=== PATIENT | female | born 1935 | race Caucasian/White ===

== ENCOUNTER 2018-12-13 11:27 | Inpatient (IN) | payer OTHER ==
[2018-12-13 12:25] LABS: BASO % 0.3 % (0-2.0); EOS % 1.1 % (0-4.5); HEMATOCRIT 37.8 % (32.4-45.2); HEMOGLOBIN 12.1 GM/dL (10.7-15.3); LYMPH % 26.4 % (8-40); MEAN CELL VOLUME 75.1 fl (80-96); MEAN PLT VOLUME 8.7 fl (7.5-11.1); MONO % 7.9 % (3.8-10.2); NEUT % 64.3 % (42.8-82.8); PLATELET COUNT 322 K/MM3 (134-434); RBC 5.03 M/mm3 (3.60-5.2); WHITE BLOOD COUNT 12.2 K/mm3 (4.0-10.0)
[2018-12-13] MEDS ORDERED: SODIUM CHLORIDE 500 ML IV STA (12:28)
[2018-12-13] MEDS ORDERED: PANTOPRAZOLE SODIUM 40 MG VIAL IVPUSH ONE (12:29)
[2018-12-13 12:35] LABS: INR 1.94 (0.83-1.09)
[2018-12-13] MEDS ORDERED: PANTOPRAZOLE SODIUM 40 MG VIAL ONE ×2 (12:38→18:20)
[2018-12-13 13:02] LABS: ALBUMIN 3.1 g/dl (3.4-5.0); ALK PHOS 67 U/L (45-117); ANION GAP 9 MMOL/L (8-16); BILIRUBIN,TOTAL 0.3 mg/dL (0.2-1); BLOOD UREA NITROGEN 21 mg/dL (7-18); CALCIUM 8.7 mg/dL (8.5-10.1); CHLORIDE 102 mmol/L (98-107); CO2 25 mmol/L (21-32); CREATININE 1.1 mg/dL (0.55-1.3); GLUCOSE,RANDOM 88 mg/dL (74-106); LIPASE 210 U/L (73-393); POTASSIUM 3.7 mmol/L (3.5-5.1); SGOT/AST 19 U/L (15-37); SGPT/ALT 18 U/L (13-61); SODIUM 135 mmol/L (136-145); TOT PROT 6.2 g/dl (6.4-8.2)
[2018-12-13] MEDS ORDERED: dilTIAZem HCL 50 MG/10 ML - 10 ML VIAL IVPUSH ONE ×3 (13:26→20:20)
--- NOTE | 2018-12-13 13:26 | PDOC ---
History of Present Illness - General History Source: [facility] Records Exam Limitations: Dementia - History of Present Illness Initial Comments: 12/13/18 14:29 The patient is an 83-year-old female from [facility], with a past medical history of HTN, GERD, esophagitis, ataxia, hallucinations, and dementia, who presents to the ED via EMS for coffee ground emesis and increased confusion. Patients history is limited due to dementia. <Izabela Arthur - Last Filed: 12/13/18 15:20> <Terence Spring - Last Filed: 12/13/18 16:20> - General Chief Complaint: Nausea/Vomiting Stated Complaint: Altered Mental Status Time Seen by Provider: 12/13/18 11:57 Past History <Izabela Arthur - Last Filed: 12/13/18 15:20> - Past Medical History GI Disorders: Yes (reflux, esophogitis) HTN: Yes Psychiatric Problems: Yes (hallucinations,ataxia) - Immunization History Immunization Up to Date: Yes - Suicide/Smoking/Psychosocial Hx Smoking History: Smoker current status UNK Have you smoked in the past 12 months: No Hx Alcohol Use: No Drug/Substance Use Hx: No Substance Use Type: None Hx Substance Use Treatment: No <Terence Spring - Last Filed: 12/13/18 16:20> - Past Medical History Allergies/Adverse Reactions: Allergies Allergy/AdvReac Type Severity Reaction Status Date / Time No Known Allergies Allergy Verified 12/13/18 12:30 Home Medications: Ambulatory Orders Donepezil HCl [Aricept] 10 mg PO HS 07/23/15 Apixaban [Eliquis -] 5 mg PO BID #60 tablet 07/30/15 Fluticasone Prop 0.05% Nasal [Flonase -] 2 spray NS DAILY #1 bottle 07/30/15 Diltiazem Cd [Cardizem Cd -] 60 mg PO TID 12/13/18 Ferrous Gluconate [Iron] 240 mg PO DAILY 12/13/18 Loratadine [Claritin -] 10 mg PO DAILY 12/13/18 Mirtazapine [Remeron -] 15 mg PO HS 12/13/18 Omeprazole Magnesium [Prilosec Otc] 20 mg PO DAILY 12/13/18 Propranolol HCl [Inderal LA] 120 mg PO BID 12/13/18 Sennosides/Docusate Sodium [Senokot-S Tablet] 2 each PO HS 12/13/18 Review of Systems - Review of Systems Able to Perform ROS?: No Comments:: 12/13/18 15:21 ROS is limited due to patient's dementia. <Izabela Arthur - Last Filed: 12/13/18 15:20> *Physical Exam - Vital Signs Last Vital Signs Temp Pulse Resp BP Pulse Ox 97.9 F 126 H 22 H 127/87 99 12/13/18 12:25 12/13/18 12:25 12/13/18 12:25 12/13/18 12:25 12/13/18 12:25 - Physical Exam Comments: 12/13/18 14:38 CONSTITUTIONAL: Well-appearing; well-nourished; in no apparent distress HEAD: Normocephalic; atraumatic EYES: (+)Pale conjuctiva. PERRL; EOM intact ENMT: External appears normal; normal oropharynx NECK: Supple; non-tender; no cervical lymphadenopathy CARD:(+)Irregularly, irregular. Normal S1, S2; no murmurs, rubs, or gallops RESP: Normal chest excursion with respiration; breath sounds clear and equal bilaterally; no wheezes, rhonchi, or rales ABD: Soft, non-distended; non-tender; no palpable organomegaly, no palpable hernias EXT: Normal ROM in all four extremities; non-tender to palpation; distal pulses intact SKIN: Warm, dry, no rash NEURO: (+)Alert and oriented to self only. Moving all extremities. <Izabela Arthur - Last Filed: 12/13/18 15:20> - Vital Signs Last Vital Signs Temp Pulse Resp BP Pulse Ox 97.9 F 126 H 22 H 127/87 99 12/13/18 12:25 12/13/18 12:25 12/13/18 12:25 12/13/18 12:25 12/13/18 12:25 <Terence Spring - Last Filed: 12/13/18 16:20> Moderate Sedation - Procedure Monitoring Vital Signs: Procedure Monitoring Vital Signs Temperature 97.9 F 12/13/18 12:25 Pulse Rate 126 H 12/13/18 12:25 Respiratory Rate 22 H 12/13/18 12:25 Blood Pressure 127/87 12/13/18 12:25 O2 Sat by Pulse Oximetry (%) 99 12/13/18 12:25 <Izabela Arthur - Last Filed: 12/13/18 15:20> - Procedure Monitoring Vital Signs: Procedure Monitoring Vital Signs Temperature 97.9 F 12/13/18 12:25 Pulse Rate 126 H 12/13/18 12:25 Respiratory Rate 22 H 12/13/18 12:25 Blood Pressure 127/87 12/13/18 12:25 O2 Sat by Pulse Oximetry (%) 99 12/13/18 12:25 <Terence Spring - Last Filed: 12/13/18 16:20> ED Treatment Course - LABORATORY CBC & Chemistry Diagram: 12/13/18 12:12 12/13/18 12:14 - ADDITIONAL ORDERS Additional order review: Laboratory Results 12/13/18 12/13/18 12/13/18 12:14 12:14 12:14 PT with INR 23.00 H INR 1.94 H Sodium Cancelled 135 L Potassium Cancelled 3.7 Chloride Cancelled 102 Carbon Dioxide Cancelled 25 Anion Gap Cancelled 9 BUN Cancelled 21 H Creatinine Cancelled 1.1 Creat Clearance w eGFR Cancelled 47.21 Random Glucose Cancelled 88 Calcium Cancelled 8.7 Total Bilirubin Cancelled 0.3 AST Cancelled 19 ALT Cancelled 18 Alkaline Phosphatase Cancelled 67 Creatine Kinase 20 L Troponin I < 0.02 Total Protein Cancelled 6.2 L Albumin Cancelled 3.1 L Lipase 210 TSH 2.24 12/13/18 12:12 RBC 5.03 MCV 75.1 L MCHC 32.0 RDW 20.0 H MPV 8.7 Neutrophils % 64.3 Lymphocytes % 26.4 Monocytes % 7.9 Eosinophils % 1.1 Basophils % 0.3 - Medications Given in the ED: ED Medications Discontinued Medications Generic Name Dose Route Start Last Admin Trade Name Freq PRN Reason Stop Dose Admin Diltiazem HCl 10 mg 12/13/18 13:26 12/13/18 13:31 Cardizem Injection - IVPUSH 12/13/18 13:27 10 mg ONCE ONE Administration Sodium Chloride 500 mls @ 500 mls/hr 12/13/18 12:28 12/13/18 12:45 Normal Saline - IV 12/13/18 13:27 500 mls/hr ASDIR STA Administration Pantoprazole Sodium 40 mg 12/13/18 12:29 12/13/18 12:46 Protonix Iv IVPUSH 12/13/18 12:30 40 mg ONCE ONE Administration <Izabela Arthur - Last Filed: 12/13/18 15:20> - LABORATORY CBC & Chemistry Diagram: 12/13/18 12:12 12/13/18 12:14 - ADDITIONAL ORDERS Additional order review: Laboratory Results 12/13/18 12/13/18 12/13/18 12:14 12:14 12:14 PT with INR 23.00 H INR 1.94 H Sodium Cancelled 135 L Potassium Cancelled 3.7 Chloride Cancelled 102 Carbon Dioxide Cancelled 25 Anion Gap Cancelled 9 BUN Cancelled 21 H Creatinine Cancelled 1.1 Creat Clearance w eGFR Cancelled 47.21 Random Glucose Cancelled 88 Calcium Cancelled 8.7 Total Bilirubin Cancelled 0.3 AST Cancelled 19 ALT Cancelled 18 Alkaline Phosphatase Cancelled 67 Creatine Kinase 20 L Troponin I < 0.02 Total Protein Cancelled 6.2 L Albumin Cancelled 3.1 L Lipase 210 TSH 2.24 12/13/18 12:12 RBC 5.03 MCV 75.1 L MCHC 32.0 RDW 20.0 H MPV 8.7 Neutrophils % 64.3 Lymphocytes % 26.4 Monocytes % 7.9 Eosinophils % 1.1 Basophils % 0.3 - RADIOLOGY Radiology Studies Ordered: Category Date Time Status CHEST X-RAY PORTABLE* [RAD] Stat Radiology 12/13/18 12:28 Taken - Medications Given in the ED: ED Medications Discontinued Medications Generic Name Dose Route Start Last Admin Trade Name Freq PRN Reason Stop Dose Admin Pantoprazole Sodium 40 mg 12/13/18 12:29 12/13/18 12:46 Protonix Iv IVPUSH 12/13/18 12:30 40 mg ONCE ONE Administration <Terence Spring - Last Filed: 12/13/18 16:20> Medical Decision Making - Medical Decision Making 12/13/18 15:28 Patient is a well-appearing 83-year-old female with advanced dementia, multiple comorbidities, atrial fibrillation on 0 to who presents [facility] for several episodes of witnessed coffee ground emesis and increased confusion. In the ER, patient is well-appearing, tachycardic with EKG revealing a flutter with 2:1 conduction. Hemoglobin is noted to be 10. Patient is stool guaiac positive. I suspect upper GI bleeding. We'll administer Protonix. Will hold Xarelto and will consult GI. Will admit. We'll also administer Cardizem for rate control. <Terence Spring - Last Filed: 12/13/18 16:20> *DC/Admit/Observation/Transfer - Attestations Scribe Attestion: 12/13/18 14:33 Documentation prepared by Izabela Arthur, acting as medical office professional instructor for Terence Spring MD. <Izabela Arthur - Last Filed: 12/13/18 15:20> - Discharge Dispostion Decision to Admit order: Yes - Attestations Physician Attestion: 12/13/18 15:28 The documentation was prepared by the scribe under my direct supervision. I have reviewed the documentation which correctly represents the findings, medical decision-making and critical action taken by me. <Terence Spring - Last Filed: 12/13/18 16:20> Diagnosis at time of Disposition: Flutter-fibrillation Gastrointestinal bleeding Qualifiers: GI bleed type/associated pathology: melena Qualified Code(s): K92.1 - Melena - Discharge Dispostion Condition at time of disposition: Fair - Referrals Referrals: Fatimah Henson MD [Primary Care Provider] - - Patient Instructions - Post Discharge Activity
[2018-12-13] MEDS ORDERED: dilTIAZem HCL 125 MG/25 ML - 25 ML VIAL ONE ×3 (13:28→20:25)
[2018-12-13] MEDS ORDERED: dilTIAZem HCL 30 MG TABLET (FP) PO ONE (15:30)
[2018-12-13] MEDS ORDERED: dilTIAZem HCL 30 MG TABLET (FP) ONE (15:46)
[2018-12-13] MEDS ORDERED: ACETAMINOPHEN 325 MG TABLET (FP) PO PRN (17:57)
[2018-12-13] MEDS: PANTOPRAZOLE SODIUM 80 MG in SODIUM CHLORIDE 100 ML IVPB SCH (18:27)
--- NOTE | 2018-12-13 21:18 | CONS ---
DATE OF CONSULTATION: DATE OF DICTATION: 12/13/2018 GASTROENTEROLOGY CONSULTATION HISTORY OF PRESENT ILLNESS: The patient is an 83-year-old female from the custodial facility who has a medical history significant for hypertension, atrial fibrillation, on Eliquis, reflux disease, dementia with hallucinations, history of esophagitis in the past who presents from the custodial facility by EMS for an episode of coffee ground emesis and increased confusion while she was at the facility. She states she had no abdominal pain, nausea, vomiting. She denies having any melena or episodes of coffee ground emesis. She appears to be somewhat confused. She states she has had endoscopic evaluation when she was younger. PAST MEDICAL AND SURGICAL HISTORY: As listed in the HPI. ALLERGIES: No known drug allergies. HOME MEDICATIONS: Reviewed, include Aricept, Eliquis, flonase, Cardizem, iron, Claritin, Remeron, Prilosec, Inderal, and Senokot. SOCIAL HISTORY: Denies smoking, drinking, or using drugs. FAMILY HISTORY: Unable to obtain. REVIEW OF SYSTEMS: Very limited secondary to her dementia and confused state. She does however deny chest pain, shortness of breath, or syncope, and previous episode of GI bleed. PHYSICAL EXAMINATION: VITAL SIGNS: Temperature 97.9, pulse 69, blood pressure 111/92, respirations 12 , and saturating 97% on room air. GENERAL: In no acute distress. HEENT: Anicteric sclerae. CARDIOVASCULAR: S1, S2, regular rate and rhythm. LUNGS: Bilaterally clear to auscultation. ABDOMEN: Soft, nontender. EXTREMITIES: No edema. LABORATORY: White blood cell count 12.2, hemoglobin and hematocrit 12/37, MCV 75. Apparently her baseline a couple years ago with hemoglobin of between 13 to 14, platelet count 322, INR 1.94. Sodium 135, potassium 3.7, BUN/creatinine 21/1.1, glucose 88, total bilirubin 0.3, AST 19, ALT 18, alkaline phosphatase 67, creatinine kinase 20, troponin less than 0.02, lipase 210, TSH 2.24. Stool for occult blood was positive. There are no cultures pending, and she has had a chest x-ray in the ER which revealed no acute chest pathology. IMPRESSION: Episode of coffee ground emesis and melena while at the custodial facility. She is currently on Eliquis therapy. She is hemodynamically stable at this time without sign of an overt gastrointestinal bleed. RECOMMENDATION: N.p.o., intravenous fluids, Protonix infusion, serial CBCs q.8. She would benefit form an upper endoscopy. I will contact her power of trial attorney, Ms. Shantell Jennings, and discuss the risks and benefits of endoscopic procedures with her. Plan for egd within the next 24- 48 hours considering she is on a/c with eliquis. Hold anticoagulation. Cardiology consultation. Patient will be followed by the GI service. DO TAYA TORRE/[id number] MTDD
[2018-12-13] MEDS ORDERED: PT OWN MED DRAWER 7, Y5N ONE ×2 (23:31→23:58)
[2018-12-13] MEDS: SENNOSIDES/DOCUSATE COMBO (SENNA PLUS) TABLET (UD) PO SCH (23:35)
[2018-12-13] MEDS: dilTIAZem HCL 60 MG TABLET (FP) PO SCH (23:36)
[2018-12-13] MEDS: DONEPEZIL HCL 10 MG TABLET (FP) PO SCH (23:36)
[2018-12-13] MEDS: MIRTAZAPINE 15 MG TABLET (FP) PO SCH (23:36)
--- NOTE | 2018-12-13 23:56 | HP ---
Admitting History and Physical - Admission Chief Complaint: coffee ground emesis History of Present Illness: 83 year old female with past medical history of reflux, esophagitis, dementia, hallucination, Ataxia, HTN, benign neoplasm of cerebral meninges, who presents to the emergency department via EMS from group home due to two episodes of coffee ground emesis and increased confusion. Patient is a poor historian. In ED: Pt was found to be in Aflutter 2:1 conduction at 126bpm. She was given cardizem 10mg IVP x 2 doses then 30mg cardizem oral. Hemoccult x 1 positive, pt started on protonix drip. H/H stable 12.1/37.[address] Mejia from GI service consulted Pt admitted for continued management. History Source: Medical Record Limitations to Obtaining History: Dementia - Past Medical History [employer]ARM[employer]: Yes: Dementia (mild), Other (?meningioma) Cardiovascular: Yes: HTN Gastrointestinal: Yes: GERD Reproductive: Yes: Postmenopausal - Smoking History Smoking history: Smoker current status UNK Have you smoked in the past 12 months: No - Alcohol/Substance Use Hx Alcohol Use: No History of Substance Use: reports: None - Social History Usual Living Arrangement: Yes: [facility] ADL: Support Services History of Recent Travel: No Home Medications - Allergies Allergies/Adverse Reactions: Allergies Allergy/AdvReac Type Severity Reaction Status Date / Time No Known Allergies Allergy Verified 12/13/18 12:30 - Home Medications Home Medications: Ambulatory Orders Donepezil HCl [Aricept] 10 mg PO HS 07/23/15 Apixaban [Eliquis -] 5 mg PO BID #60 tablet 07/30/15 Fluticasone Prop 0.05% Nasal [Flonase -] 2 spray NS DAILY #1 bottle 07/30/15 Diltiazem Cd [Cardizem Cd -] 60 mg PO TID 12/13/18 Ferrous Gluconate [Iron] 240 mg PO DAILY 12/13/18 Loratadine [Claritin -] 10 mg PO DAILY 12/13/18 Mirtazapine [Remeron -] 15 mg PO HS 12/13/18 Omeprazole Magnesium [Prilosec Otc] 20 mg PO DAILY 12/13/18 Propranolol HCl [Inderal LA] 120 mg PO BID 12/13/18 Sennosides/Docusate Sodium [Senokot-S Tablet] 2 each PO HS 12/13/18 Family Disease History - Family Disease History Other Family History: unable to obtain Review of Systems - Review of Systems Constitutional: reports: No Symptoms Eyes: reports: No Symptoms HENT: reports: Hearing Loss Neck: reports: No Symptoms Cardiovascular: reports: No Symptoms Respiratory: reports: No Symptoms Gastrointestinal: reports: Nausea, Vomiting Genitourinary: reports: No Symptoms Breasts: reports: No Symptoms Reported Musculoskeletal: reports: Muscle Weakness Integumentary: reports: No Symptoms Neurological: reports: Confusion Endocrine: reports: No Symptoms Hematology/Lymphatic: reports: No Symptoms Physical Examination Vital Signs: Vital Signs Temperature 97.9 F 12/13/18 12:25 Pulse Rate 118 H 12/13/18 21:02 Respiratory Rate 17 12/13/18 21:02 Blood Pressure 100/63 12/13/18 21:02 O2 Sat by Pulse Oximetry (%) 96 12/13/18 21:02 Constitutional: Yes: Cachectic, Thin Eyes: Yes: Conjunctiva Clear, PERRL HENT: Yes: Atraumatic, Normocephalic Neck: Yes: Supple Cardiovascular: Yes: Tachycardia Respiratory: Yes: Regular, CTA Bilaterally Gastrointestinal: Yes: Normal Bowel Sounds, Soft ...Rectal Exam: Yes: Deferred Musculoskeletal: Yes: Joint Stiffness, Muscle Weakness Edema: No Peripheral Pulses WNL: Yes Peripheral Pulses: Left Radial: 2+, Right Radial: 2+ Integumentary: Yes: Venous Stasis Changes Neurological: Yes: Alert, Unsteady Gait, Other (forgetful) ...Motor Strength: WNL Psychiatric: Yes: Alert Labs: CBC, BMP 12/13/18 12:12 12/13/18 12:14 Imaging - Results Chest X-ray: Report Reviewed (CXR 12/13/2018: no acute pathology) Problem List - Problems (1) Flutter-fibrillation Assessment/Plan: cardizem 60mg TID CArds consulted admit to tele bed EKG in AM hold xarelto in light of possible GI bleed Code(s): I49.8 - OTHER SPECIFIED CARDIAC ARRHYTHMIAS (2) Gastrointestinal bleeding Assessment/Plan: continue protonix drip NPO GI consulted Code(s): K92.2 - GASTROINTESTINAL HEMORRHAGE, UNSPECIFIED Qualifiers: GI bleed type/associated pathology: melena Qualified Code(s): K92.1 - Melena (3) Dementia Assessment/Plan: aricept 10mg qhs remeron 15mg qhs constant reorientation and reassurance Code(s): F03.90 - UNSPECIFIED DEMENTIA WITHOUT BEHAVIORAL DISTURBANCE (4) GERD (gastroesophageal reflux disease) Assessment/Plan: PPI infusion Code(s): K21.9 - GASTRO-ESOPHAGEAL REFLUX DISEASE WITHOUT ESOPHAGITIS (5) Hypertension Assessment/Plan: Inderal 120mg BID Code(s): I10 - ESSENTIAL (PRIMARY) HYPERTENSION Qualifiers: Hypertension type: essential hypertension Qualified Code(s): I10 - Essential (primary) hypertension Assessment/Plan SCDs and CHLOE stocking due to holding AC Code status needs clarification with ME Visit type - Emergency Visit Emergency Visit: Yes ED Registration Date: 12/13/18 Care time: The patient presented to the Emergency Department on the above date and was hospitalized for further evaluation of their emergent condition. - New Patient This patient is new to me today: Yes Date on this admission: 12/14/18 - Critical Care Critical Care patient: No
[2018-12-14] MEDS: dilTIAZem HCL 60 MG TABLET (FP) PO SCH ×3 (05:48→22:37)
[2018-12-14] MEDS: PANTOPRAZOLE SODIUM 80 MG in SODIUM CHLORIDE 100 ML IVPB SCH ×2 (05:48→15:16)
[2018-12-14 06:36] LABS: BASO % 0.6 % (0-2.0); EOS % 1.5 % (0-4.5); HEMATOCRIT 36.8 % (32.4-45.2); HEMOGLOBIN 11.8 GM/dL (10.7-15.3); LYMPH % 23.6 % (8-40); MCH 24.1 pg (25.7-33.7); MEAN CELL VOLUME 75.3 fl (80-96); MEAN PLT VOLUME 8.9 fl (7.5-11.1); MONO % 7.3 % (3.8-10.2); PLATELET COUNT 293 K/MM3 (134-434); RBC 4.89 M/mm3 (3.60-5.2); RDW 19.4 % (11.6-15.6); WHITE BLOOD COUNT 10.7 K/mm3 (4.0-10.0)
[2018-12-14 07:17] LABS: MAGNESIUM 1.6 mg/dL (1.8-2.4); N-TERMINAL BNP 1204.8 pg/ml (5-450); PHOSPHOROUS 3.4 mg/dL (2.5-4.9)
[2018-12-14 07:54] LABS: ACTIVATED PTT 31.1 SECONDS (25.2-36.5)
[2018-12-14 08:20] LABS: INR 1.42 (0.83-1.09); PROTHROMBIN TIME (PATIENT) 16.8 SEC (9.7-13.0)
[2018-12-14] MEDS: LORATADINE 10 MG TABLET PO SCH (10:30)
--- NOTE | 2018-12-14 11:08 | CON.CARD ---
Cardiology Consult (text) - Consultation Consultation Note: cc: sent from mt for coffee ground emesis hpi: 83 f hx dementia, afib/flutter, gerd, htn, tia, sent from mt for coffee ground emesis. found to have new onset afib with rvr. Pt has dementia so hx questionable. Pt reports no sx. No cp, sob, palps, dizzy, loc, pnd, orthopnea , le edema. pmh: per hpi psh: NC social: no tob fam: no premature cad ros: per hpi; no fever, nvd, rash, cough, nasal congestion, WALL, vision changes meds: Home Medications Medication Instructions Recorded Donepezil HCl [Aricept] 10 mg PO HS 07/23/15 Apixaban [Eliquis -] 5 mg PO BID #60 tablet 07/30/15 Fluticasone Prop 0.05% Nasal 2 spray NS DAILY #1 bottle 07/30/15 [Flonase -] Diltiazem Cd [Cardizem Cd -] 60 mg PO TID 12/13/18 Ferrous Gluconate [Iron] 240 mg PO DAILY 12/13/18 Loratadine [Claritin -] 10 mg PO DAILY 12/13/18 Mirtazapine [Remeron -] 15 mg PO HS 12/13/18 Omeprazole Magnesium [Prilosec Otc] 20 mg PO DAILY 12/13/18 Propranolol HCl [Inderal LA] 120 mg PO BID 12/13/18 Sennosides/Docusate Sodium 2 each PO HS 12/13/18 [Senokot-S Tablet] pe: Vital Signs Period Temp Pulse Resp BP Sys/Germain Pulse Ox Last 24 Hr 97.4 F-98 F 69-126 17-22 90-127/56-92 96-99 nad, no jvd irreg s1s2 no mrg cta bl nl eff awake, alert, confused pos dp pt no jaundice diaphoresis no le e/c/c abd nt nd pos bs Laboratory Last Values WBC 10.7 K/mm3 (4.0-10.0) H 12/14/18 05:30 RBC 4.89 M/mm3 (3.60-5.2) 12/14/18 05:30 Hgb 11.8 GM/dL (10.7-15.3) 12/14/18 05:30 Hct 36.8 % (32.4-45.2) 12/14/18 05:30 MCV 75.3 fl (80-96) L 12/14/18 05:30 MCH 24.1 pg (25.7-33.7) L 12/14/18 05:30 MCHC 32.0 g/dl (32.0-36.0) 12/14/18 05:30 RDW 19.4 % (11.6-15.6) H 12/14/18 05:30 Plt Count 293 K/MM3 (134-434) 12/14/18 05:30 MPV 8.9 fl (7.5-11.1) 12/14/18 05:30 Absolute Neuts (auto) 7.2 K/mm3 (1.5-8.0) 12/14/18 05:30 Neutrophils % 67.0 % (42.8-82.8) 12/14/18 05:30 Lymphocytes % 23.6 % (8-40) 12/14/18 05:30 Monocytes % 7.3 % (3.8-10.2) 12/14/18 05:30 Eosinophils % 1.5 % (0-4.5) 12/14/18 05:30 Basophils % 0.6 % (0-2.0) 12/14/18 05:30 Nucleated RBC % 0 % (0-0) 12/14/18 05:30 PT with INR 16.80 SEC (9.7-13.0) H 12/14/18 05:30 INR 1.42 (0.83-1.09) H 12/14/18 05:30 PTT (Actin FS) 31.1 SECONDS (25.2-36.5) 12/14/18 05:30 Sodium 135 mmol/L (136-145) L 12/13/18 12:14 Potassium 3.7 mmol/L (3.5-5.1) 12/13/18 12:14 Chloride 102 mmol/L (98-107) 12/13/18 12:14 Carbon Dioxide 25 mmol/L (21-32) 12/13/18 12:14 Anion Gap 9 MMOL/L (8-16) 12/13/18 12:14 BUN 21 mg/dL (7-18) H 12/13/18 12:14 Creatinine 1.1 mg/dL (0.55-1.3) 12/13/18 12:14 Creat Clearance w eGFR 47.21 (>60) 12/13/18 12:14 Random Glucose 88 mg/dL (74-106) 12/13/18 12:14 Calcium 8.7 mg/dL (8.5-10.1) 12/13/18 12:14 Phosphorus 3.4 mg/dL (2.5-4.9) 12/14/18 05:30 Magnesium 1.6 mg/dL (1.8-2.4) L 12/14/18 05:30 Total Bilirubin 0.3 mg/dL (0.2-1) 12/13/18 12:14 AST 19 U/L (15-37) 12/13/18 12:14 ALT 18 U/L (13-61) 12/13/18 12:14 Alkaline Phosphatase 67 U/L (45-117) 12/13/18 12:14 Creatine Kinase 20 U/L (26-192) L 12/13/18 12:14 Troponin I < 0.02 ng/ml (0.00-0.05) 12/14/18 05:30 B-Natriuretic Peptide 1204.8 pg/ml (5-450) H 12/14/18 05:30 Total Protein 6.2 g/dl (6.4-8.2) L 12/13/18 12:14 Albumin 3.1 g/dl (3.4-5.0) L 12/13/18 12:14 Lipase 210 U/L (73-393) 12/13/18 12:14 TSH 2.24 uIU/ml (0.358-3.74) 12/13/18 12:14 Stool Occult Blood Positive (NEGATIVE) 12/13/18 14:19 Blood Type O POSITIVE 12/13/18 20:55 Antibody Screen Negative 12/13/18 15:00 ecg: aflutter with 2:1 avb, vr 125, no ischemic changes echo 07/2015: nl lv/rv, no sig valve path tele: aflutter, vr in 100s-120s cxr: clear lungs echo 07/2015: nl lv/rv, no sig valve path a/p: 83 f hx dementia, afib/flutter, gerd, htn, tia, sent from mt for coffee ground emesis. GIB: -agree with holding eliquis -GI following -no cardiac contraindications to egd/foc aflutter: -holding eliquis as above -cont dilt and inderal for rate control with prn lopressor iv if npo -cont tele htn: -stable on current meds
--- NOTE | 2018-12-14 13:46 | PN ---
Progress Note (short form) - Note Progress Note: no complaints. denies CP, SOB< fever, chills, palpitaitons, N/V/C/D does not recall why she is currently hospitalized. Current Medications Generic Name Dose Route Start Last Admin Trade Name Freq PRN Reason Stop Dose Admin Acetaminophen 650 mg 12/13/18 17:57 Tylenol - PO Q6H PRN FEVER Diltiazem HCl 60 mg 12/13/18 22:00 12/14/18 05:48 Cardizem - PO 60 mg TID OBDULIO Administration Donepezil HCl 10 mg 12/13/18 22:00 12/13/18 23:36 Aricept - PO 10 mg HS OBDULIO Administration Pantoprazole Sodium 80 mg/ 100 mls @ 10 mls/hr 12/13/18 18:00 12/14/18 05:48 Sodium Chloride IVPB 10 mls/hr Q10H OBDULIO Administration 8 MG/HR Loratadine 10 mg 12/14/18 10:00 12/14/18 10:30 Claritin - PO 10 mg DAILY OBDULIO Administration Metoprolol Tartrate 5 mg 12/14/18 09:30 Lopressor Injection - IVPUSH Q4H PRN TACHYCARDIA Mirtazapine 15 mg 12/13/18 22:00 12/13/18 23:36 Remeron - PO 15 mg HS OBDULIO Administration Propranolol HCl 120 mg 12/13/18 22:00 12/14/18 10:30 Inderal La - PO 120 mg BID OBDULIO Administration Senna/Docusate Sodium 2 tablet 12/13/18 22:00 12/13/18 23:35 Pericolace - PO 2 tablet HS OBDULIO Administration Last Vital Signs Temp Pulse Resp BP Pulse Ox 98 F 120 H 20 124/68 97 12/14/18 09:00 12/14/18 09:00 12/14/18 09:00 12/14/18 09:00 12/13/18 22:00 General NAD A&O self only CV S1 S2 irregualr, tachycadic lungs CTA B/L no wheezing/rales/rhonchi Abdomen soft NT/ND Extremities no pedal edema CBCD WBC 10.7 K/mm3 (4.0-10.0) H 12/14/18 05:30 RBC 4.89 M/mm3 (3.60-5.2) 12/14/18 05:30 Hgb 11.8 GM/dL (10.7-15.3) 12/14/18 05:30 Hct 36.8 % (32.4-45.2) 12/14/18 05:30 MCV 75.3 fl (80-96) L 12/14/18 05:30 MCHC 32.0 g/dl (32.0-36.0) 12/14/18 05:30 RDW 19.4 % (11.6-15.6) H 12/14/18 05:30 Plt Count 293 K/MM3 (134-434) 12/14/18 05:30 MPV 8.9 fl (7.5-11.1) 12/14/18 05:30 CMP Sodium 135 mmol/L (136-145) L 12/13/18 12:14 Potassium 3.7 mmol/L (3.5-5.1) 12/13/18 12:14 Chloride 102 mmol/L (98-107) 12/13/18 12:14 Carbon Dioxide 25 mmol/L (21-32) 12/13/18 12:14 Anion Gap 9 MMOL/L (8-16) 12/13/18 12:14 BUN 21 mg/dL (7-18) H 12/13/18 12:14 Creatinine 1.1 mg/dL (0.55-1.3) 12/13/18 12:14 Creat Clearance w eGFR 47.21 (>60) 12/13/18 12:14 Calcium 8.7 mg/dL (8.5-10.1) 12/13/18 12:14 Total Bilirubin 0.3 mg/dL (0.2-1) 12/13/18 12:14 AST 19 U/L (15-37) 12/13/18 12:14 ALT 18 U/L (13-61) 12/13/18 12:14 Alkaline Phosphatase 67 U/L (45-117) 12/13/18 12:14 Total Protein 6.2 g/dl (6.4-8.2) L 12/13/18 12:14 Albumin 3.1 g/dl (3.4-5.0) L 12/13/18 12:14 A/P 83 yo F with PMH dementia, GERD, HTN and benign menigioma presented to the ER with coffee ground emesis 1. Coffee ground emesis- no repeat episodes since arrival. Hgb stable. will need EGD once medically optimized. if no plans for EGD today will start on clear liquids wiht NPO tonight, PPI ggt, IVF 2. Afib with RVR- rate not controlled. unclear why on propanolol for rate control. on home dose of dilatiazem. will increase to 90mg. consider switching propanolol to metoprolol for better control. metoprolol IVP prn. hold eliquis in setting of GI bleed. cardiac enzymes neg x2. cardio on board 3. Luekocytosis- stress induced. no signs of infection. hold abx 4. Dementia- cont home meds 5. HTN- controlled. 6. benign menigioma 7. DVT ppx- SCD Visit type - Emergency Visit Emergency Visit: Yes ED Registration Date: 12/13/18 Care time: The patient presented to the Emergency Department on the above date and was hospitalized for further evaluation of their emergent condition. - New Patient This patient is new to me today: Yes Date on this admission: 12/14/18 - Critical Care Critical Care patient: No - Discharge Referral Referred to [facility] No
--- NOTE | 2018-12-14 16:56 | EKG ---
Test Reason : Blood Pressure : / mmHG Vent. Rate : 125 BPM Atrial Rate : 250 BPM P-R Int : 000 ms QRS Dur : 068 ms QT Int : 334 ms P-R-T Axes : 239 000 -84 degrees QTc Int : 482 ms ATRIAL FLUTTER WITH 2:1 A-V CONDUCTION ABNORMAL ECG WHEN COMPARED WITH ECG OF 29-JUL-2015 02:34, ATRIAL FLUTTER HAS REPLACED SINUS RHYTHM ST NOW DEPRESSED IN INFERIOR LEADS ST NOW DEPRESSED IN ANTEROLATERAL LEADS T WAVE INVERSION NOW EVIDENT IN ANTERIOR LEADS Confirmed by IRINA HUYNH MD ([id number]) on 12/14/2018 4:56:45 PM Referred By: Confirmed By:IRINA HUYNH MD
--- NOTE | 2018-12-14 16:57 | EKG ---
Test Reason : Blood Pressure : / mmHG Vent. Rate : 125 BPM Atrial Rate : 250 BPM P-R Int : 000 ms QRS Dur : 066 ms QT Int : 324 ms P-R-T Axes : 232 -09 -85 degrees QTc Int : 467 ms ATRIAL FLUTTER WITH 2:1 A-V CONDUCTION ABNORMAL ECG WHEN COMPARED WITH ECG OF 29-JUL-2015 02:34, ATRIAL FLUTTER HAS REPLACED SINUS RHYTHM ST NOW DEPRESSED IN INFERIOR LEADS ST NOW DEPRESSED IN ANTERIOR LEADS T WAVE INVERSION NOW EVIDENT IN ANTEROLATERAL LEADS Confirmed by IRINA HUYNH MD ([id number]) on 12/14/2018 4:57:26 PM Referred By: Confirmed By:IRINA HUYNH MD
--- NOTE | 2018-12-14 17:19 | PN ---
GI Progress Note Subjective: No overt bleeding / melena reported No abdominal pain Patient found sitting up and in good spirits - Objective Vital Signs: Vital Signs Temperature 97.9 F 12/14/18 14:00 Pulse Rate 110 H 12/14/18 14:00 Respiratory Rate 20 12/14/18 09:00 Blood Pressure 106/72 12/14/18 14:00 O2 Sat by Pulse Oximetry (%) 97 12/14/18 09:00 Constitutional: Calm Eyes: No: Sclera Icterus Cardiovascular: Yes: Tachycardia (regular rhythm) Respiratory: Yes: CTA Bilaterally Gastrointestinal Inspection: No: Distention ...Auscultate: Yes: Normoactive Bowel Sounds ...Palpate: No: Hepatomegaly, Splenomegaly, Tenderness ...Percussion: No: Tympanitic Edema: No (No LE edema) Neurological: Yes: Alert Labs: CBC, BMP 12/14/18 05:30 12/13/18 12:14 INR, PTT INR 1.42 (0.83-1.09) H 12/14/18 05:30 Problem List - Problems (1) Gastrointestinal bleeding Assessment/Plan: No overt bleeding noted today She will be off of eliquis x 48 hours tomorrow. Plan for EGD 12/15 Continue PPI drip. Monitor magnesium levels Monitor H/H Discussed plan with patient's HCP Shantell Cruz ( ). She was aware as Dr. Mejia had spoken to her yesterday. We reviewed potential risks of the procedure like but not limited to bleeding, perforation requiring surgery to repair, infection, sedation medication effects all of which could be potentially life threatening. She has agreed for the procedure as has Ms. Peguero. Code(s): K92.2 - GASTROINTESTINAL HEMORRHAGE, UNSPECIFIED Qualifiers: GI bleed type/associated pathology: melena Qualified Code(s): K92.1 - Melena
[2018-12-14 20:33] LABS: HEMATOCRIT 36.4 % (32.4-45.2); HEMOGLOBIN 11.6 GM/dL (10.7-15.3); MCH 24.3 pg (25.7-33.7); MCHC 31.9 g/dl (32.0-36.0); MEAN CELL VOLUME 76.1 fl (80-96); MEAN PLT VOLUME 9.2 fl (7.5-11.1); PLATELET COUNT 319 K/MM3 (134-434); RBC 4.79 M/mm3 (3.60-5.2); RDW 19.7 % (11.6-15.6); WHITE BLOOD COUNT 11.5 K/mm3 (4.0-10.0)
[2018-12-14] MEDS: METOPROLOL TARTRATE 25 MG TABLET (FP) PO SCH (22:37)
[2018-12-14] MEDS: DONEPEZIL HCL 10 MG TABLET (FP) PO SCH (22:37)
[2018-12-14] MEDS: MIRTAZAPINE 15 MG TABLET (FP) PO SCH (22:37)
[2018-12-14] MEDS: SENNOSIDES/DOCUSATE COMBO (SENNA PLUS) TABLET (UD) PO SCH (22:37)
[2018-12-15] MEDS: PANTOPRAZOLE SODIUM 80 MG in SODIUM CHLORIDE 100 ML IVPB SCH ×3 (01:52→21:42)
[2018-12-15] MEDS: dilTIAZem HCL 60 MG TABLET (FP) PO SCH ×3 (06:42→21:43)
[2018-12-15 06:58] LABS: BASO % 0.8 % (0-2.0); EOS % 2.7 % (0-4.5); HEMATOCRIT 34.5 % (32.4-45.2); LYMPH % 26.3 % (8-40); MCH 24.1 pg (25.7-33.7); MCHC 31.9 g/dl (32.0-36.0); MEAN CELL VOLUME 75.4 fl (80-96); MEAN PLT VOLUME 8.9 fl (7.5-11.1); MONO % 8.3 % (3.8-10.2); NEUT % 61.9 % (42.8-82.8); PLATELET COUNT 233 K/MM3 (134-434); RBC 4.57 M/mm3 (3.60-5.2); RDW 19.9 % (11.6-15.6); WHITE BLOOD COUNT 7.4 K/mm3 (4.0-10.0)
[2018-12-15] MEDS: DEXTROSE 5%-NORMAL SALINE 1,000 ML IV SCH (07:49)
[2018-12-15 08:27] LABS: ANION GAP 11 MMOL/L (8-16); BLOOD UREA NITROGEN 16 mg/dL (7-18); CALCIUM 7.9 mg/dL (8.5-10.1); CHLORIDE 107 mmol/L (98-107); CO2 21 mmol/L (21-32); CREATININE 0.8 mg/dL (0.55-1.3); GLUCOSE,RANDOM 76 mg/dL (74-106); MAGNESIUM 1.6 mg/dL (1.8-2.4); SODIUM 138 mmol/L (136-145)
[2018-12-15] MEDS ORDERED: MAGNESIUM SULF 50% (8.12 MEQ/2 ML-1 GM VIAL) IVPB ONE (09:00)
[2018-12-15] MEDS: KCL 10 MEQ IVPB 10 MEQ/100 ML INFUS.BAG IVPB SCH ×3 (09:42→11:43)
[2018-12-15] MEDS: LORATADINE 10 MG TABLET PO SCH (09:43)
[2018-12-15] MEDS: METOPROLOL TARTRATE 25 MG TABLET (FP) PO SCH ×2 (09:43→21:43)
--- NOTE | 2018-12-15 11:41 | PN ---
Progress Note (short form) - Note Progress Note: s: no cp sob palps dizzy o: Vital Signs Period Temp Pulse Resp BP Sys/Germain Pulse Ox Last 24 Hr 97.7 F-98 F 68-124 18-18 97-117/45-72 98 nad, no jvd irreg s1s2 no mrg cta bl nl eff awake, alert, confused no jaundice diaphoresis no le e/c/c abd nt nd pos bs Current Medications Generic Name Dose Route Start Last Admin Trade Name Freq PRN Reason Stop Dose Admin Acetaminophen 650 mg 12/13/18 17:57 Tylenol - PO Q6H PRN FEVER Diltiazem HCl 60 mg 12/13/18 22:00 12/15/18 06:42 Cardizem - PO 60 mg TID OBDULIO Administration Donepezil HCl 10 mg 12/13/18 22:00 12/14/18 22:37 Aricept - PO 10 mg HS OBDULIO Administration Pantoprazole Sodium 80 mg/ 100 mls @ 10 mls/hr 12/13/18 18:00 12/15/18 11:18 Sodium Chloride IVPB 10 mls/hr Q10H OBDULIO Administration 8 MG/HR Dextrose/Sodium Chloride 1,000 mls @ 83 mls/hr 12/15/18 00:01 12/15/18 07:49 D5-Ns - IV 83 mls/hr ASDIR OBDULIO Administration Potassium Chloride 10 meq in 100 mls @ 100 mls/hr 12/15/18 09:00 12/15/18 10: 36 Potassium Chloride 10 Meq Premix Ivpb - IVPB 12/15/18 11:59 100 mls/hr Q1H OBDULIO Administration Loratadine 10 mg 12/14/18 10:00 12/15/18 09:43 Claritin - PO 10 mg DAILY OBDULIO Administration Metoprolol Tartrate 5 mg 12/14/18 09:30 Lopressor Injection - IVPUSH Q4H PRN TACHYCARDIA Metoprolol Tartrate 25 mg 12/14/18 22:00 12/15/18 09:43 Lopressor - PO 25 mg BID OBDULIO Administration Mirtazapine 15 mg 12/13/18 22:00 12/14/18 22:37 Remeron - PO 15 mg HS OBDULIO Administration Senna/Docusate Sodium 2 tablet 12/13/18 22:00 02/28/19 22:37 Pericolace - PO 2 tablet HS OBDULIO Administration CBC, BMP 12/15/18 05:30 12/15/18 05:30 ecg: aflutter with 2:1 avb, vr 125, no ischemic changes echo 07/2015: nl lv/rv, no sig valve path tele: [place], vr 70s cxr: clear lungs echo 07/2015: nl lv/rv, no sig valve path a/p: 83 f hx dementia, afib/flutter, gerd, htn, tia, sent from [place] for coffee ground emesis. GIB: -agree with holding eliquis -GI following -no cardiac contraindications to egd/foc aflutter: -holding eliquis as above -cont dilt and inderal for rate control with prn lopressor iv if npo -cont tele htn: -stable on current meds
[2018-12-15 12:39] LABS: POTASSIUM 2.9 mmol/L (3.5-5.1)
--- NOTE | 2018-12-15 13:30 | PN ---
Progress Note (short form) - Note Progress Note: GI NOte ( covering Dr. Rodriguez and Dr Mejia): EGD revealed no source for bleeding. I informed Shantell Purmela her power of margaritooney and asked wheter or not to procced with a colonosocpy. I informed her of the risks of perforation and hemorrhage and an incidence of 1 in 1,000 and of the need for a bowel prep. She wants to think about it and will contact Dr Mejia who will be covering this weekend. Would not resume Eliquis until this decision is made.
--- NOTE | 2018-12-15 14:30 | PN ---
Progress Note, Physician Chief Complaint: she is comfortable and she has low k this morning and it was replaced IV and later she had repat k level she went for upper endoscopy and has no ulcer in her stomach she has no symptoms her hb is stable - Current Medication List Current Medications: Active Medications Acetaminophen (Tylenol -) 650 mg PO Q6H PRN PRN Reason: FEVER Diltiazem HCl (Cardizem -) 60 mg PO TID [facility] Last Admin: 12/15/18 14:22 Dose: 60 mg Donepezil HCl (Aricept -) 10 mg PO [facility] Last Admin: 12/14/18 22:37 Dose: 10 mg Pantoprazole Sodium 80 mg/ (Sodium Chloride) 100 mls @ 10 mls/hr IVPB Q10H [facility] Last Admin: 12/15/18 11:18 Dose: 10 mls/hr Dextrose/Sodium Chloride (D5-Ns -) 1,000 mls @ 83 mls/hr IV ASDIR [facility] Last Admin: 12/15/18 07:49 Dose: 83 mls/hr Loratadine (Claritin -) 10 mg PO DAILY [facility] Last Admin: 12/15/18 09:43 Dose: 10 mg Metoprolol Tartrate (Lopressor Injection -) 5 mg IVPUSH Q4H PRN PRN Reason: TACHYCARDIA Metoprolol Tartrate (Lopressor -) 25 mg PO BID [facility] Last Admin: 12/15/18 09:43 Dose: 25 mg Mirtazapine (Remeron -) 15 mg PO [facility] Last Admin: 12/14/18 22:37 Dose: 15 mg Senna/Docusate Sodium (Pericolace -) 2 tablet PO [facility] Last Admin: 12/14/18 22:37 Dose: 2 tablet - Objective Vital Signs: Vital Signs Temperature 97.9 F 12/15/18 13:04 Pulse Rate 72 12/15/18 13:36 Respiratory Rate 17 12/15/18 13:36 Blood Pressure 111/55 L 12/15/18 13:36 O2 Sat by Pulse Oximetry (%) 99 12/15/18 13:36 Constitutional: Yes: Well Nourished, No Distress Eyes: Yes: Conjunctiva Clear Neck: Yes: Supple Cardiovascular: Yes: Pulse Irregular Respiratory: Yes: CTA Bilaterally Gastrointestinal: Yes: Normal Bowel Sounds, Soft Extremities: Yes: WNL Neurological: Yes: WNL Labs: CBC, BMP 12/15/18 05:30 12/15/18 05:30 INR, PTT INR 1.42 (0.83-1.09) H 12/14/18 05:30 Impression/Plan Impression/Plan: 83 yo F with PMH dementia, GERD, HTN and benign menigioma presented to the ER with coffee ground vomiting 1. Gi bleeding wiht normal upper endoscopy continue ppi , dr Ramon has discussed with POA regarding colonoscopy and she is thinking about it will watch h/h and now it is stable 2. Afib with RVR- rate is controlled. continue same dose of beta brandon and cardizem 4. Dementia- cont home meds 5. HTN- controlled. 6. benign menigioma 7. DVT ppx- SCD Visit type - Emergency Visit Emergency Visit: Yes ED Registration Date: 12/13/18 Care time: The patient presented to the Emergency Department on the above date and was hospitalized for further evaluation of their emergent condition. - New Patient This patient is new to me today: Yes Date on this admission: 12/15/18 - Critical Care Critical Care patient: No - Discharge Referral Referred to [facility] Med P.C.: No
[2018-12-15] MEDS: SENNOSIDES/DOCUSATE COMBO (SENNA PLUS) TABLET (UD) PO SCH (21:43)
[2018-12-15] MEDS: MIRTAZAPINE 15 MG TABLET (FP) PO SCH (21:43)
[2018-12-15] MEDS: DONEPEZIL HCL 10 MG TABLET (FP) PO SCH (21:44)
[2018-12-16] MEDS: DEXTROSE 5%-NORMAL SALINE 1,000 ML IV SCH ×2 (00:37→13:16)
[2018-12-16] MEDS: PANTOPRAZOLE SODIUM 80 MG in SODIUM CHLORIDE 100 ML IVPB SCH ×2 (05:17→15:32)
[2018-12-16] MEDS: dilTIAZem HCL 60 MG TABLET (FP) PO SCH ×2 (05:17→15:37)
--- NOTE | 2018-12-16 08:26 | PN ---
Progress Note, Physician Chief Complaint: no new complaints , feeling ok today - Current Medication List Current Medications: Active Medications Acetaminophen (Tylenol -) 650 mg PO Q6H PRN PRN Reason: FEVER Diltiazem HCl (Cardizem -) 60 mg PO TID [facility] Last Admin: 12/16/18 05:17 Dose: 60 mg Donepezil HCl (Aricept -) 10 mg PO [facility] Last Admin: 12/15/18 21:44 Dose: 10 mg Pantoprazole Sodium 80 mg/ (Sodium Chloride) 100 mls @ 10 mls/hr IVPB Q10H [facility] Last Admin: 12/16/18 05:17 Dose: 10 mls/hr Dextrose/Sodium Chloride (D5-Ns -) 1,000 mls @ 83 mls/hr IV ASDIR [facility] Last Admin: 12/16/18 00:37 Dose: 83 mls/hr Loratadine (Claritin -) 10 mg PO DAILY [facility] Last Admin: 12/15/18 09:43 Dose: 10 mg Metoprolol Tartrate (Lopressor Injection -) 5 mg IVPUSH Q4H PRN PRN Reason: TACHYCARDIA Metoprolol Tartrate (Lopressor -) 25 mg PO BID [facility] Last Admin: 12/15/18 21:43 Dose: 25 mg Mirtazapine (Remeron -) 15 mg PO [facility] Last Admin: 12/15/18 21:43 Dose: 15 mg Senna/Docusate Sodium (Pericolace -) 2 tablet PO [facility] Last Admin: 12/15/18 21:43 Dose: 2 tablet - Objective Vital Signs: Vital Signs Temperature 97.9 F 12/16/18 05:00 Pulse Rate 110 H 12/16/18 05:00 Respiratory Rate 20 12/16/18 05:00 Blood Pressure 97/60 12/16/18 05:00 O2 Sat by Pulse Oximetry (%) 99 12/15/18 21:00 Constitutional: Yes: Well Nourished, No Distress, Calm HENT: Yes: WNL Neck: Yes: WNL Cardiovascular: Yes: WNL Respiratory: Yes: WNL, Regular, CTA Bilaterally Gastrointestinal: Yes: WNL, Normal Bowel Sounds, Soft Edema: No Labs: CBC, BMP 12/15/18 05:30 12/15/18 05:30 INR, PTT INR 1.42 (0.83-1.09) H 12/14/18 05:30 Problem List - Problems (1) Gastrointestinal bleeding Assessment/Plan: c/w clear liquid diet PPI therapy monitor H/H daily while hospitalized avoid nsaid will f/u with the HCP regarding potential colonoscopy Code(s): K92.2 - GASTROINTESTINAL HEMORRHAGE, UNSPECIFIED Qualifiers: GI bleed type/associated pathology: melena Qualified Code(s): K92.1 - Melena
--- NOTE | 2018-12-16 09:37 | PN ---
Physical Exam: SUBJECTIVE: Patient seen and examined. She is confused. She has no complaints. OBJECTIVE: Vital Signs Period Temp Pulse Resp BP Sys/Germain Pulse Ox Last 24 Hr 97.1 F-98.1 F 61-110 17-20 85-112/40-60 95-99 GENERAL: The patient is awake, alert, confused, in no acute distress. LUNGS: Breath sounds equal, clear to auscultation bilaterally, no wheezes, no crackles, no accessory muscle use. HEART: Regular rate and rhythm, S1, S2 without murmur, rub or gallop. ABDOMEN: Soft, nontender, nondistended, normoactive bowel sounds, no guarding, no rebound, no hepatosplenomegaly, no masses. EXTREMITIES: 2+ pulses, warm, well-perfused, no edema. Laboratory Results - last 24 hr 12/15/18 05:30 Potassium 2.9 L* Active Medications Generic Name Dose Route Start Last Admin Trade Name Freq PRN Reason Stop Dose Admin Acetaminophen 650 mg 12/13/18 17:57 Tylenol - PO Q6H PRN FEVER Diltiazem HCl 60 mg 12/13/18 22:00 12/16/18 05:17 Cardizem - PO 60 mg TID OBDULIO Administration Donepezil HCl 10 mg 12/13/18 22:00 12/15/18 21:44 Aricept - PO 10 mg HS OBDULIO Administration Pantoprazole Sodium 80 mg/ 100 mls @ 10 mls/hr 12/13/18 18:00 12/16/18 05:17 Sodium Chloride IVPB 10 mls/hr Q10H OBDULIO Administration 8 MG/HR Dextrose/Sodium Chloride 1,000 mls @ 83 mls/hr 12/15/18 00:01 12/16/18 00:37 D5-Ns - IV 83 mls/hr ASDIR OBDULIO Administration Loratadine 10 mg 12/14/18 10:00 12/15/18 09:43 Claritin - PO 10 mg DAILY OBDULIO Administration Metoprolol Tartrate 5 mg 12/14/18 09:30 Lopressor Injection - IVPUSH Q4H PRN TACHYCARDIA Metoprolol Tartrate 25 mg 12/14/18 22:00 12/15/18 21:43 Lopressor - PO 25 mg BID OBDULIO Administration Mirtazapine 15 mg 12/13/18 22:00 12/15/18 21:43 Remeron - PO 15 mg HS OBDULIO Administration Senna/Docusate Sodium 2 tablet 12/13/18 22:00 12/15/18 21:43 Pericolace - PO 2 tablet HS OBDULIO Administration ASSESSMENT/PLAN: This is an 83 year old woman with a history of HTN, atrial fib/flutter, dementia , GERD, meningioma who was sent to the ED from [facility] for evaluation of worsening confusion and coffee ground emesis. 1. Possible GI bleeding - EGD done 12/15 was normal - Continue Protonix - Family considering colonoscopy - Continue to monitor hgb 2. Hypokalemia - Continue to replete as needed - Replete magnesium as needed 3. Hypomagnesemia - Continue to replete as needed 4. Atrial fib with RVR - Currently in atrial flutter - Continue Lopressor, Cardizem - Eliquis held secondary to possible GI bleeding 5. HTN - Continue Lopressor, Cardizem 6. Dementia - Continue Aricept, remeron 7. GERD - Contnue Protonix 8. Meningioma Visit type - Emergency Visit Emergency Visit: Yes ED Registration Date: 12/13/18 Care time: The patient presented to the Emergency Department on the above date and was hospitalized for further evaluation of their emergent condition. - New Patient This patient is new to me today: Yes Date on this admission: 12/16/18 - Critical Care Critical Care patient: No - Discharge Referral Referred to [facility] Med P.C.: No
[2018-12-16] MEDS: METOPROLOL TARTRATE 25 MG TABLET (FP) PO SCH (10:19)
[2018-12-16] MEDS: LORATADINE 10 MG TABLET PO SCH (10:19)
--- NOTE | 2018-12-16 10:57 | PN ---
Progress Note, Physician History of Present Illness: No events overnight No CV complaints Tele: Aflutter at 54/min - Current Medication List Current Medications: Active Medications Acetaminophen (Tylenol -) 650 mg PO Q6H PRN PRN Reason: FEVER Diltiazem HCl (Cardizem -) 60 mg PO TID [facility] Last Admin: 12/16/18 05:17 Dose: 60 mg Donepezil HCl (Aricept -) [address] [facility] Last Admin: 12/15/18 21:44 Dose: 10 mg Pantoprazole Sodium 80 mg/ (Sodium Chloride) 100 mls @ 10 mls/hr IVPB Q10H [facility] Last Admin: 12/16/18 05:17 Dose: 10 mls/hr Dextrose/Sodium Chloride (D5-Ns -) 1,000 mls @ 83 mls/hr IV ASDIR [facility] Last Admin: 12/16/18 00:37 Dose: 83 mls/hr Loratadine (Claritin -) 10 mg PO DAILY [facility] Last Admin: 12/16/18 10:19 Dose: 10 mg Metoprolol Tartrate (Lopressor Injection -) 5 mg IVPUSH Q4H PRN PRN Reason: TACHYCARDIA Metoprolol Tartrate (Lopressor -) 25 mg PO BID [facility] Last Admin: 12/16/18 10:19 Dose: 25 mg Mirtazapine (Remeron -) [address] [facility] Last Admin: 12/15/18 21:43 Dose: 15 mg Senna/Docusate Sodium (Pericolace -) [address] [facility] Last Admin: 12/15/18 21:43 Dose: 2 tablet - Objective Vital Signs: Vital Signs Temperature 99.3 F 12/16/18 09:00 Pulse Rate 73 12/16/18 09:00 Respiratory Rate 20 12/16/18 09:00 Blood Pressure 106/46 L 12/16/18 09:00 O2 Sat by Pulse Oximetry (%) 99 12/15/18 21:00 Constitutional: Yes: Well Nourished, No Distress Eyes: Yes: Conjunctiva Clear HENT: Yes: WNL Neck: Yes: WNL Cardiovascular: Yes: Regular Rate and Rhythm Respiratory: Yes: CTA Bilaterally Gastrointestinal: Yes: Normal Bowel Sounds Musculoskeletal: Yes: WNL Extremities: Yes: WNL Edema: No Labs: CBC, BMP 12/15/18 05:30 12/15/18 05:30 INR, PTT INR 1.42 (0.83-1.09) H 12/14/18 05:30 Assessment/Plan a/p: 83 f hx dementia, afib/flutter, gerd, htn, tia, sent from [place] for coffee ground emesis. GIB: -holding eliquis -GI following -Stable from CV perspective, no cardiac contraindications to egd/foc aflutter: -holding eliquis as above -cont dilt and inderal for rate control with prn lopressor iv if npo -cont tele htn: -stable on current meds
[2018-12-16 13:36] LABS: ANION GAP 9 MMOL/L (8-16); BLOOD UREA NITROGEN 6 mg/dL (7-18); CALCIUM 7.6 mg/dL (8.5-10.1); CHLORIDE 112 mmol/L (98-107); CO2 20 mmol/L (21-32); CREATININE 0.8 mg/dL (0.55-1.3); GLUCOSE,RANDOM 97 mg/dL (74-106); MAGNESIUM 1.6 mg/dL (1.8-2.4); POTASSIUM 3.2 mmol/L (3.5-5.1); SODIUM 141 mmol/L (136-145)
[2018-12-16] MEDS ORDERED: MAGNESIUM SULF 50% (8.12 MEQ/2 ML-1 GM VIAL) IVPB ONE (17:15)
[2018-12-16] MEDS: KCL 10 MEQ IVPB 10 MEQ/100 ML INFUS.BAG IVPB SCH ×3 (20:00→23:23)
[2018-12-17] MEDS: DONEPEZIL HCL 10 MG TABLET (FP) PO SCH ×2 (00:23→22:18)
[2018-12-17] MEDS: dilTIAZem HCL 60 MG TABLET (FP) PO SCH ×4 (00:23→22:18)
[2018-12-17] MEDS: MIRTAZAPINE 15 MG TABLET (FP) PO SCH ×2 (00:24→22:19)
[2018-12-17] MEDS: SENNOSIDES/DOCUSATE COMBO (SENNA PLUS) TABLET (UD) PO SCH ×2 (00:24→22:19)
[2018-12-17] MEDS: METOPROLOL TARTRATE 25 MG TABLET (FP) PO SCH ×3 (00:24→22:18)
[2018-12-17] MEDS: DEXTROSE 5%-NORMAL SALINE 1,000 ML IV SCH (07:02)
[2018-12-17] MEDS: PANTOPRAZOLE SODIUM 80 MG in SODIUM CHLORIDE 100 ML IVPB SCH ×3 (07:02→22:00)
[2018-12-17 08:04] LABS: HEMATOCRIT 32.8 % (32.4-45.2); HEMOGLOBIN 10.6 GM/dL (10.7-15.3); MCH 24.4 pg (25.7-33.7); MCHC 32.2 g/dl (32.0-36.0); MEAN CELL VOLUME 75.8 fl (80-96); MEAN PLT VOLUME 8.6 fl (7.5-11.1); PLATELET COUNT 222 K/MM3 (134-434); RBC 4.33 M/mm3 (3.60-5.2); RDW 19.9 % (11.6-15.6); WHITE BLOOD COUNT 5.1 K/mm3 (4.0-10.0)
[2018-12-17 08:33] LABS: ANION GAP 6 MMOL/L (8-16); BLOOD UREA NITROGEN 4 mg/dL (7-18); CHLORIDE 112 mmol/L (98-107); CO2 23 mmol/L (21-32); CREATININE 0.7 mg/dL (0.55-1.3); GLUCOSE,RANDOM 122 mg/dL (74-106); POTASSIUM 3.4 mmol/L (3.5-5.1); SODIUM 141 mmol/L (136-145)
[2018-12-17] MEDS: LORATADINE 10 MG TABLET PO SCH (09:46)
--- NOTE | 2018-12-17 10:13 | PN ---
Progress Note, Physician Chief Complaint: no new complaints , feeling ok today - Current Medication List Current Medications: Active Medications Acetaminophen (Tylenol -) 650 mg PO Q6H PRN PRN Reason: FEVER Diltiazem HCl (Cardizem -) 60 mg PO TID [facility] Last Admin: 12/17/18 07:03 Dose: 60 mg Donepezil HCl (Aricept -) 10 mg PO [facility] Last Admin: 12/17/18 00:23 Dose: 10 mg Pantoprazole Sodium 80 mg/ (Sodium Chloride) 100 mls @ 10 mls/hr IVPB Q10H [facility] Last Admin: 12/17/18 07:02 Dose: 10 mls/hr Dextrose/Sodium Chloride (D5-Ns -) 1,000 mls @ 83 mls/hr IV ASDIR [facility] Last Admin: 12/17/18 07:02 Dose: 83 mls/hr Loratadine (Claritin -) 10 mg PO DAILY [facility] Last Admin: 12/17/18 09:46 Dose: 10 mg Metoprolol Tartrate (Lopressor Injection -) 5 mg IVPUSH Q4H PRN PRN Reason: TACHYCARDIA Metoprolol Tartrate (Lopressor -) 25 mg PO BID [facility] Last Admin: 12/17/18 09:46 Dose: 25 mg Mirtazapine (Remeron -) 15 mg PO [facility] Last Admin: 12/17/18 00:24 Dose: 15 mg Senna/Docusate Sodium (Pericolace -) 2 tablet PO [facility] Last Admin: 12/17/18 00:24 Dose: 2 tablet - Objective Vital Signs: Vital Signs Temperature 97.2 F L 12/17/18 09:00 Pulse Rate 74 12/17/18 09:00 Respiratory Rate 20 12/17/18 09:00 Blood Pressure 122/54 L 12/17/18 09:00 O2 Sat by Pulse Oximetry (%) 98 12/16/18 09:00 Constitutional: Yes: Well Nourished, No Distress, Calm Eyes: Yes: WNL HENT: Yes: WNL Neck: Yes: WNL Cardiovascular: Yes: WNL Respiratory: Yes: WNL, Regular, CTA Bilaterally Gastrointestinal: Yes: WNL, Normal Bowel Sounds, Soft Edema: No Labs: CBC, BMP 12/17/18 07:20 12/17/18 07:20 INR, PTT INR 1.42 (0.83-1.09) H 12/14/18 05:30 Problem List - Problems (1) Gastrointestinal bleeding Assessment/Plan: Spoke with the HCP Shantell who agrees with plan for colonoscopy Tuesday- she understands the risk and benefit of procedure including but not limited to perforation, bleeding, sedation, missed lesion and infection. -clear liquid diet / golytely & dulcolax bowel preparation - - NPO midnight for diagnostic colonoscopy Tuesday - PPI therapy - monitor H/H daily while hospitalized - avoid nsaid Code(s): K92.2 - GASTROINTESTINAL HEMORRHAGE, UNSPECIFIED Qualifiers: GI bleed type/associated pathology: melena Qualified Code(s): K92.1 - Melena
--- NOTE | 2018-12-17 11:08 | PN ---
Progress Note, Physician History of Present Illness: No complaints States she doesnt known why she is here Tele: Aflutter 60s - Current Medication List Current Medications: Active Medications Acetaminophen (Tylenol -) 650 mg PO Q6H PRN PRN Reason: FEVER Diltiazem HCl (Cardizem -) 60 mg PO TID [facility] Last Admin: 12/17/18 07:03 Dose: 60 mg Donepezil HCl (Aricept -) 10 mg PO [facility] Last Admin: 12/17/18 00:23 Dose: 10 mg Pantoprazole Sodium 80 mg/ (Sodium Chloride) 100 mls @ 10 mls/hr IVPB Q10H [facility] Last Admin: 12/17/18 07:02 Dose: 10 mls/hr Dextrose/Sodium Chloride (D5-Ns -) 1,000 mls @ 83 mls/hr IV ASDIR [facility] Last Admin: 12/17/18 07:02 Dose: 83 mls/hr Loratadine (Claritin -) 10 mg PO DAILY [facility] Last Admin: 12/17/18 09:46 Dose: 10 mg Metoprolol Tartrate (Lopressor Injection -) 5 mg IVPUSH Q4H PRN PRN Reason: TACHYCARDIA Metoprolol Tartrate (Lopressor -) 25 mg PO BID [facility] Last Admin: 12/17/18 09:46 Dose: 25 mg Mirtazapine (Remeron -) 15 mg PO [facility] Last Admin: 12/17/18 00:24 Dose: 15 mg Senna/Docusate Sodium (Pericolace -) 2 tablet PO [facility] Last Admin: 12/17/18 00:24 Dose: 2 tablet - Objective Vital Signs: Vital Signs Temperature 97.2 F L 12/17/18 09:00 Pulse Rate 74 12/17/18 09:00 Respiratory Rate 20 12/17/18 09:00 Blood Pressure 122/54 L 12/17/18 09:00 O2 Sat by Pulse Oximetry (%) 98 12/16/18 09:00 Constitutional: Yes: No Distress, Calm Eyes: Yes: WNL HENT: Yes: WNL Neck: Yes: WNL Cardiovascular: Yes: Regular Rate and Rhythm Respiratory: Yes: CTA Bilaterally Gastrointestinal: Yes: Normal Bowel Sounds Musculoskeletal: Yes: WNL Extremities: Yes: WNL Edema: No Labs: CBC, BMP 12/17/18 07:20 12/17/18 07:20 INR, PTT INR 1.42 (0.83-1.09) H 12/14/18 05:30 Assessment/Plan a/p: 83 f hx dementia, afib/flutter, gerd, htn, tia, sent from in for coffee ground emesis. GIB: -holding eliquis -Hgb 10.6 (11.0) -GI following on clear diet and PPI -Remains stable from CV perspective, no cardiac contraindications to egd/foc aflutter: -holding eliquis as above -cont dilt and inderal for rate control with prn lopressor iv if npo -cont tele htn: -stable on current meds
[2018-12-17] MEDS ORDERED: PT OWN MED DRAWER 7, Y5N ONE ×2 (13:35→21:05)
--- NOTE | 2018-12-17 15:32 | PN ---
Physical Exam: SUBJECTIVE: Patient seen and examined. She is confused. She has no complaints. OBJECTIVE: Vital Signs Period Temp Pulse Resp BP Sys/Germain Pulse Ox Last 24 Hr 97.1 F-98.1 F 70-132 18-22 90-122/50-63 98 GENERAL: The patient is awake, alert, confused, in no acute distress. LUNGS: Breath sounds equal, clear to auscultation bilaterally, no wheezes, no crackles, no accessory muscle use. HEART: Regular rate and rhythm, S1, S2 without murmur, rub or gallop. ABDOMEN: Soft, nontender, nondistended, normoactive bowel sounds, no guarding, no rebound, no hepatosplenomegaly, no masses. EXTREMITIES: 2+ pulses, warm, well-perfused, no edema. Laboratory Results - last 24 hr 12/17/18 12/17/18 07:20 07:20 WBC 5.1 RBC 4.33 Hgb 10.6 L Hct 32.8 MCV 75.8 L MCH 24.4 L MCHC 32.2 RDW 19.9 H Plt Count 222 MPV 8.6 Sodium 141 Potassium 3.4 L Chloride 112 H Carbon Dioxide 23 Anion Gap 6 L BUN 4 L Creatinine 0.7 Creat Clearance w eGFR > 60 Random Glucose 122 H Calcium 8.0 L Magnesium 2.0 Active Medications Generic Name Dose Route Start Last Admin Trade Name Freq PRN Reason Stop Dose Admin Acetaminophen 650 mg 12/13/18 17:57 Tylenol - PO Q6H PRN FEVER Diltiazem HCl 60 mg 12/13/18 22:00 12/17/18 13:39 Cardizem - PO 60 mg TID OBDULIO Administration Donepezil HCl 10 mg 12/13/18 22:00 12/17/18 00:23 Aricept - PO 10 mg HS OBDULIO Administration Pantoprazole Sodium 80 mg/ 100 mls @ 10 mls/hr 12/13/18 18:00 12/17/18 13:39 Sodium Chloride IVPB 10 mls/hr Q10H OBDULIO Administration 8 MG/HR Dextrose/Sodium Chloride 1,000 mls @ 83 mls/hr 12/15/18 00:01 12/17/18 07:02 D5-Ns - IV 83 mls/hr ASDIR OBDULIO Administration Loratadine 10 mg 12/14/18 10:00 12/17/18 09:46 Claritin - PO 10 mg DAILY OBDULIO Administration Metoprolol Tartrate 5 mg 12/14/18 09:30 Lopressor Injection - IVPUSH Q4H PRN TACHYCARDIA Metoprolol Tartrate 25 mg 12/14/18 22:00 12/17/18 09:46 Lopressor - PO 25 mg BID OBDULIO Administration Mirtazapine 15 mg 12/13/18 22:00 12/17/18 00:24 Remeron - PO 15 mg HS OBDULIO Administration Senna/Docusate Sodium 2 tablet 12/13/18 22:00 12/17/18 00:24 Pericolace - PO 2 tablet HS OBDULIO Administration ASSESSMENT/PLAN: This is an 83 year old woman with a history of HTN, atrial fib/flutter, dementia , GERD, meningioma who was sent to the ED from [facility] for evaluation of worsening confusion and coffee ground emesis. 1. Possible GI bleeding - EGD done 12/15 was normal - Continue Protonix - Family agrees to colonoscopy - Continue to monitor hgb 2. Hypokalemia - Continue to replete as needed - Replete magnesium as needed 3. Hypomagnesemia - Improved 4. Atrial fib with RVR - Currently in atrial flutter - Continue Lopressor, Cardizem - Eliquis held secondary to possible GI bleeding 5. HTN - Continue Lopressor, Cardizem 6. Dementia - Continue Aricept, remeron 7. GERD - Contnue Protonix 8. Meningioma Visit type - Emergency Visit Emergency Visit: Yes ED Registration Date: 12/13/18 Care time: The patient presented to the Emergency Department on the above date and was hospitalized for further evaluation of their emergent condition. - New Patient This patient is new to me today: No - Critical Care Critical Care patient: No - Discharge Referral Referred to [facility] Med P.C.: No
[2018-12-17] MEDS ORDERED: POTASSIUM CHLORIDE TABS 20 MEQ TABLET.ER (FP) PO ONE (16:16)
[2018-12-17] MEDS ORDERED: PEG3350/SOD SULF,BICARB,CL/KCL 4,000 ML SOLN.RECON PO ONE (17:00)
[2018-12-18] MEDS: DEXTROSE 5%-NORMAL SALINE 1,000 ML IV SCH (00:30)
[2018-12-18] MEDS: PANTOPRAZOLE SODIUM 80 MG in SODIUM CHLORIDE 100 ML IVPB SCH (03:36)
[2018-12-18] MEDS: dilTIAZem HCL 60 MG TABLET (FP) PO SCH ×3 (06:21→22:52)
[2018-12-18 07:04] LABS: HEMATOCRIT 36.4 % (32.4-45.2); HEMOGLOBIN 11.5 GM/dL (10.7-15.3); MCH 23.9 pg (25.7-33.7); MCHC 31.7 g/dl (32.0-36.0); MEAN CELL VOLUME 75.5 fl (80-96); MEAN PLT VOLUME 9.1 fl (7.5-11.1); PLATELET COUNT 234 K/MM3 (134-434); RBC 4.83 M/mm3 (3.60-5.2); RDW 20.4 % (11.6-15.6); WHITE BLOOD COUNT 5.2 K/mm3 (4.0-10.0)
[2018-12-18 07:26] LABS: ANION GAP 11 MMOL/L (8-16); CALCIUM 7.4 mg/dL (8.5-10.1); CHLORIDE 113 mmol/L (98-107); CO2 19 mmol/L (21-32); CREATININE 0.6 mg/dL (0.55-1.3); GLUCOSE,RANDOM 104 mg/dL (74-106); MAGNESIUM 1.3 mg/dL (1.8-2.4); POTASSIUM 3.2 mmol/L (3.5-5.1); SODIUM 143 mmol/L (136-145)
[2018-12-18] MEDS ORDERED: MAGNESIUM SULF 50% (8.12 MEQ/2 ML-1 GM VIAL) IVPB ONE (07:38)
[2018-12-18] MEDS: METOPROLOL TARTRATE 5 MG/5 ML VIAL IVPUSH PRN ×3 (08:02→15:56)
[2018-12-18 08:07] LABS: BLOOD UREA NITROGEN 2 mg/dL (7-18)
[2018-12-18] MEDS: KCL 10 MEQ IVPB 10 MEQ/100 ML INFUS.BAG IVPB SCH ×3 (08:18→10:44)
[2018-12-18] MEDS: LORATADINE 10 MG TABLET PO SCH (11:29)
[2018-12-18] MEDS: METOPROLOL TARTRATE 25 MG TABLET (FP) PO SCH ×3 (11:30→22:52)
--- NOTE | 2018-12-18 12:11 | PN ---
Progress Note (short form) - Note Progress Note: Deferring colonoscopy today as patient is in AF with RVR in 130s Will tentatively plan for tomorrow IF heart rate is better controlled and electrolytes improved Patient can remain on clear liquids today, NPO after midnight Please touch base with GI early in am tomorrow - if stable, can receive small volume additional prep for colonoscopy Tuesday Shantell Cruz, MALACHI, updated by phone [phone]
--- NOTE | 2018-12-18 12:47 | PN ---
Physical Exam: SUBJECTIVE: Patient seen and examined. She is comfortable lying in bed. She is confused. OBJECTIVE: Vital Signs Period Temp Pulse Resp BP Sys/Germain Pulse Ox Last 24 Hr 97.2 F-98.6 F 70-137 18-20 110-147/59-98 99-99 GENERAL: The patient is awake, alert, confused, in no acute distress. LUNGS: Breath sounds equal, clear to auscultation bilaterally, no wheezes, no crackles, no accessory muscle use. HEART: Regular rhythm, tachycardic, S1, S2 without murmur, rub or gallop. ABDOMEN: Soft, nontender, nondistended, normoactive bowel sounds, no guarding, no rebound, no hepatosplenomegaly, no masses. EXTREMITIES: 2+ pulses, warm, well-perfused, no edema. Laboratory Results - last 24 hr 12/18/18 12/18/18 05:30 05:30 WBC 5.2 RBC 4.83 Hgb 11.5 Hct 36.4 MCV 75.5 L MCH 23.9 L MCHC 31.7 L RDW 20.4 H Plt Count 234 MPV 9.1 Sodium 143 Potassium 3.2 L Chloride 113 H Carbon Dioxide 19 L Anion Gap 11 BUN 2 L* Creatinine 0.6 Creat Clearance w eGFR > 60 Random Glucose 104 Calcium 7.4 L Magnesium 1.3 L Active Medications Generic Name Dose Route Start Last Admin Trade Name Freq PRN Reason Stop Dose Admin Acetaminophen 650 mg 12/13/18 17:57 Tylenol - PO Q6H PRN FEVER Diltiazem HCl 60 mg 12/13/18 22:00 12/17/18 22:18 Cardizem - PO 60 mg TID OBDULIO Administration Donepezil HCl 10 mg 12/13/18 22:00 12/17/18 22:18 Aricept - PO 10 mg HS OBDULIO Administration Pantoprazole Sodium 80 mg/ 100 mls @ 10 mls/hr 12/13/18 18:00 12/18/18 03:36 Sodium Chloride IVPB 10 mls/hr Q10H OBDULIO Administration 8 MG/HR Dextrose/Sodium Chloride 1,000 mls @ 83 mls/hr 12/15/18 00:01 12/18/18 00:30 D5-Ns - IV 83 mls/hr ASDIR OBDULIO Administration Loratadine 10 mg 12/14/18 10:00 12/18/18 11:29 Claritin - PO Not Given DAILY OBDULIO Metoprolol Tartrate 5 mg 12/14/18 09:30 12/18/18 11:40 Lopressor Injection - IVPUSH 5 mg Q4H PRN Administration TACHYCARDIA Metoprolol Tartrate 25 mg 12/14/18 22:00 12/18/18 11:30 Lopressor - PO Not Given BID OBDULIO Mirtazapine 15 mg 12/13/18 22:00 12/17/18 22:19 Remeron - PO 15 mg HS OBDULIO Administration Senna/Docusate Sodium 2 tablet 12/13/18 22:00 12/17/18 22:19 Pericolace - PO 2 tablet HS OBDULIO Administration ASSESSMENT/PLAN: This is an 83 year old woman with a history of HTN, atrial fib/flutter, dementia , GERD, meningioma who was sent to the ED from [facility] for evaluation of worsening confusion and coffee ground emesis. 1. Possible GI bleeding - EGD done 12/15 was normal - Hgb is stable - Continue Protonix - Colonoscopy was planned for today but will be deferred to tomorrow because of tachycardia 2. Hypokalemia - Continue to replete potassium - Replete magnesium as needed 3. Hypomagnesemia - Supplement magnesium 4. Atrial fib with RVR - Currently in atrial flutter - Continue Lopressor, Cardizem - Eliquis held secondary to possible GI bleeding 5. HTN - Continue Lopressor, Cardizem 6. Dementia - Continue Aricept, Remeron 7. GERD - Contnue Protonix 8. Meningioma Visit type - Emergency Visit Emergency Visit: Yes ED Registration Date: 12/13/18 Care time: The patient presented to the Emergency Department on the above date and was hospitalized for further evaluation of their emergent condition. - New Patient This patient is new to me today: No - Critical Care Critical Care patient: No - Discharge Referral Referred to [facility] Med P.C.: No
--- NOTE | 2018-12-18 14:47 | PN ---
Progress Note (short form) - Note Progress Note: s:no chest pain, palps, dyspnea, dizziness. colonoscopy planned for today was deferred due to tachycardia Current Medications Acetaminophen (Tylenol -) 650 mg PO Q6H PRN PRN Reason: FEVER Diltiazem HCl (Cardizem -) 60 mg PO TID REPLACED BY [facility] Last Admin: 12/18/18 13:58 Dose: 60 mg Donepezil HCl (Aricept -) [address] [facility] Last Admin: 12/17/18 22:18 Dose: 10 mg Pantoprazole Sodium 80 mg/ (Sodium Chloride) 100 mls @ 10 mls/hr IVPB Q10H REPLACED BY [facility] Last Admin: 12/18/18 03:36 Dose: 10 mls/hr Dextrose/Sodium Chloride (D5-Ns -) 1,000 mls @ 83 mls/hr IV ASDIR REPLACED BY [facility] Last Admin: 12/18/18 00:30 Dose: 83 mls/hr Loratadine (Claritin -) 10 mg PO DAILY REPLACED BY [facility] Last Admin: 12/18/18 11:29 Dose: Not Given Metoprolol Tartrate (Lopressor Injection -) 5 mg IVPUSH Q4H PRN PRN Reason: TACHYCARDIA Last Admin: 12/18/18 11:40 Dose: 5 mg Metoprolol Tartrate (Lopressor -) 25 mg PO BID REPLACED BY [facility] Last Admin: 12/18/18 11:30 Dose: Not Given Mirtazapine (Remeron -) [address] [facility] Last Admin: 12/17/18 22:19 Dose: 15 mg Senna/Docusate Sodium (Pericolace -) [address] [facility] Last Admin: 12/17/18 22:19 Dose: 2 tablet Vital Signs Period Temp Pulse Resp BP Sys/Germain Pulse Ox Last 24 Hr 97.2 F-98.6 F 108-137 18-20 110-147/59-98 99-99 Constitutional: Yes: No Distress, Calm Eyes: Yes: PERRL HENT: Yes: NCAT Neck: Yes: supple, no JVD Cardiovascular: Yes: Regular Rate and Rhythm Respiratory: Yes: CTA Bilaterally Gastrointestinal: Yes: Normal Bowel Sounds Musculoskeletal: Yes: WNL Extremities: Yes: WNL Edema: No tele: aflutter rate 137 Assessment/Plan a/p: 83 f hx dementia, afib/flutter, gerd, htn, tia, [place] em[place]. GIB: -holding eliquis -Hgb 10.6 (11.0) -GI following on clear diet and PPI -Remains stable from CV perspective, no cardiac contraindications to egd/foc aflutter: - holding eliquis as above - colonoscopy deferred today due to tachycardia - did not receive diltiazem or metoprolol AM doses - metoprolol 25 mg x1 now, lopressor 5 mg x 1, may give additional lopressor IV for tachycardia if not improving - cont tele htn: -stable on current meds
--- NOTE | 2018-12-18 15:22 | PATH ---
Surgical Pathology Report Patient Name: ETD ALVAREZ [facility]. Rec. #: [id number] /Age/Gender: 1935 (Age: 83) / F Account: [id number] Location: 4 TELEMETRY U Taken: 12/15/2018 Received: 12/15/2018 Reported: 12/18/2018 Physicians: Negin Canales M.D. Specimen(s) Received A: BX 2ND PORTION AND BULB OF DUODENUM B: BX ANTRUM Clinical History Coffee ground emesis, anemia Postoperative diagnosis: Atrophic gastritis Final Diagnosis A. SECOND PORTION AND BULB OF DUODENUM, BIOPSY: DUODENUM MUCOSA WITH NO DIAGNOSTIC ABNORMALITIES. NO HISTOLOGIC EVIDENCE OF CELIAC DISEASE. B. ANTRUM, BIOPSY: GASTRIC MUCOSA WITH CHRONIC GASTRITIS. NEGATIVE FOR INTESTINAL METAPLASIA. IMMUNOSTAIN FOR H. PYLORI IS NEGATIVE. Electronically Signed Tonya Burdick M.D. Gross Description A. Received in formalin, labeled "second portion and bulb of duodenum" are 3 chaney, irregular portions of soft tissue ranging from 0.2-0.3 cm. in greatest dimension. The specimens are submitted in toto in one cassette. B. Received in formalin, labeled "antrum biopsy" are 2 chaney, irregular portions of soft tissue averaging 0.3 cm. in greatest dimension. The specimens are submitted in toto in one cassette. 12/15/201812/15/2018
[2018-12-18 16:35] LABS: ANION GAP 10 MMOL/L (8-16); CALCIUM 7.4 mg/dL (8.5-10.1); CHLORIDE 111 mmol/L (98-107); CO2 20 mmol/L (21-32); CREATININE 0.7 mg/dL (0.55-1.3); GLUCOSE,RANDOM 101 mg/dL (74-106); MAGNESIUM 1.9 mg/dL (1.8-2.4); POTASSIUM 3.6 mmol/L (3.5-5.1); SODIUM 141 mmol/L (136-145)
[2018-12-18 16:38] LABS: BLOOD UREA NITROGEN 2 mg/dL (7-18)
[2018-12-18] MEDS: SENNOSIDES/DOCUSATE COMBO (SENNA PLUS) TABLET (UD) PO SCH (22:52)
[2018-12-18] MEDS: MIRTAZAPINE 15 MG TABLET (FP) PO SCH (22:53)
[2018-12-18] MEDS: DONEPEZIL HCL 10 MG TABLET (FP) PO SCH (22:53)
[2018-12-19] MEDS: DEXTROSE 5%-NORMAL SALINE 1,000 ML IV SCH (03:00)
[2018-12-19] MEDS: PANTOPRAZOLE SODIUM 80 MG in SODIUM CHLORIDE 100 ML IVPB SCH (06:20)
[2018-12-19] MEDS: dilTIAZem HCL 60 MG TABLET (FP) PO SCH ×2 (06:21→17:54)
[2018-12-19 07:09] LABS: HEMATOCRIT 33.1 % (32.4-45.2); HEMOGLOBIN 10.7 GM/dL (10.7-15.3); MCH 24.3 pg (25.7-33.7); MCHC 32.4 g/dl (32.0-36.0); MEAN CELL VOLUME 75.2 fl (80-96); MEAN PLT VOLUME 8.7 fl (7.5-11.1); PLATELET COUNT 228 K/MM3 (134-434); RDW 20.2 % (11.6-15.6); WHITE BLOOD COUNT 6.3 K/mm3 (4.0-10.0)
[2018-12-19] MEDS: METOPROLOL TARTRATE 5 MG/5 ML VIAL IVPUSH PRN (08:01)
[2018-12-19] MEDS: METOPROLOL TARTRATE 25 MG TABLET (FP) PO SCH (08:05)
[2018-12-19 08:20] LABS: ANION GAP 8 MMOL/L (8-16); CALCIUM 7.3 mg/dL (8.5-10.1); CHLORIDE 110 mmol/L (98-107); CO2 22 mmol/L (21-32); CREATININE 0.6 mg/dL (0.55-1.3); GLUCOSE,RANDOM 97 mg/dL (74-106); MAGNESIUM 1.6 mg/dL (1.8-2.4); SODIUM 140 mmol/L (136-145)
[2018-12-19 08:24] LABS: BLOOD UREA NITROGEN 1 mg/dL (7-18)
[2018-12-19] MEDS: KCL 10 MEQ IVPB 10 MEQ/100 ML INFUS.BAG IVPB SCH ×4 (08:51→15:07)
[2018-12-19] MEDS ORDERED: dilTIAZem HCL 50 MG/10 ML - 10 ML VIAL IVPUSH ONE (09:43)
[2018-12-19] MEDS ORDERED: MAGNESIUM SULF 50% (8.12 MEQ/2 ML-1 GM VIAL) IVPB ONE (10:22)
--- NOTE | 2018-12-19 10:42 | PN ---
Physical Exam: SUBJECTIVE: Patient seen and examined at the bedside. sitting in chair. asking why she was admitted. explained to patient POC and goals of getting her better and back to [facility]. explained afib, irregular heart rate and s/e of eliquis OBJECTIVE: hypomag and hyponatremia repleted iv hmg/hct stable possible colonscopy today Vital Signs Period Temp Pulse Resp BP Sys/Germain Pulse Ox Last 24 Hr 97.7 F-98.0 F 129-137 16-20 101-130/64-84 99 GENERAL: The patient is awake, alert, in no acute distress HEAD: Normal with no signs of trauma. EYES: PERRL, extraocular movements intact, sclera anicteric, conjunctiva clear. No ptosis. ENT: Ears normal, nares patent, oropharynx clear without exudates, moist mucous membranes. NECK: Trachea midline, full range of motion, supple. LUNGS: Breath sounds equal, clear to auscultation bilaterally, no wheezes HEART: irregular heart rate flucutates between 80s-130s. ABDOMEN: Soft, nontender, nondistended, normoactive bowel sounds, no guarding, no rebound, no hepatosplenomegaly, no masses. EXTREMITIES: no edema. NEUROLOGICAL: Normal speech, gait not observed. PSYCH: Normal mood, normal affect. SKIN: Warm, dry, normal turgor, no rashes or lesions noted Laboratory Results - last 24 hr 12/18/18 12/19/18 12/19/18 14:30 05:30 05:30 WBC 6.3 RBC 4.40 Hgb 10.7 Hct 33.1 MCV 75.2 L MCH 24.3 L MCHC 32.4 RDW 20.2 H Plt Count 228 MPV 8.7 Sodium 141 140 Potassium 3.6 3.0 L Chloride 111 H 110 H Carbon Dioxide 20 L 22 Anion Gap 10 8 BUN 2 L* 1 L* Creatinine 0.7 0.6 Creat Clearance w eGFR > 60 > 60 Random Glucose 101 97 Calcium 7.4 L 7.3 L Magnesium 1.9 1.6 L Active Medications Generic Name Dose Route Start Last Admin Trade Name Freq PRN Reason Stop Dose Admin Acetaminophen 650 mg 12/13/18 17:57 Tylenol - PO Q6H PRN FEVER Diltiazem HCl 60 mg 12/13/18 22:00 12/19/18 06:21 Cardizem - PO 60 mg TID OBDULIO Administration Donepezil HCl 10 mg 12/13/18 22:00 12/18/18 22:53 Aricept - PO 10 mg HS OBDULIO Administration Pantoprazole Sodium 80 mg/ 100 mls @ 10 mls/hr 12/13/18 18:00 12/19/18 06:20 Sodium Chloride IVPB 10 mls/hr Q10H OBDULIO Administration 8 MG/HR Dextrose/Sodium Chloride 1,000 mls @ 83 mls/hr 12/15/18 00:01 12/19/18 03:00 D5-Ns - IV 83 mls/hr ASDIR OBDULIO Administration Potassium Chloride 10 meq in 100 mls @ 100 mls/hr 12/19/18 10:45 Potassium Chloride 10 Meq Premix Ivpb - IVPB 12/19/18 12:44 Q60M OBDULIO Loratadine 10 mg 12/14/18 10:00 12/18/18 11:29 Claritin - PO Not Given DAILY OBDULIO Metoprolol Tartrate 5 mg 12/14/18 09:30 12/19/18 08:01 Lopressor Injection - IVPUSH 5 mg Q4H PRN Administration TACHYCARDIA Metoprolol Tartrate 25 mg 12/14/18 22:00 12/19/18 08:05 Lopressor - PO 25 mg BID OBDULIO Administration Mirtazapine 15 mg 12/13/18 22:00 12/18/18 22:53 Remeron - PO 15 mg HS OBDULIO Administration Senna/Docusate Sodium 2 tablet 12/13/18 22:00 12/18/18 22:52 Pericolace - PO 2 tablet HS OBDULIO Administration ASSESSMENT/PLAN: Patient is an 83 year old female with past medical history of reflux, esophagitis, dementia, hallucination, Ataxia, HTN, benign neoplasm of cerebral meninges, who presents to the emergency department via [facility] from [facility] due to two episodes of coffee ground emesis and increased confusion. Patient is a poor historian and at times confused. In the ED she was found to be in affluter in the 120s and was given Cardizem 10mg pushes x 2 and PO cardizem. She was found to be hemococult positive and was started on protonix drip. GI: Acute gi bleed/coffee ground emesis Eliquis on hold. colonoscopy deferred 2/2 to episodes of tachycardia Diet advanced per GI hmg/hct stable Cardiac Uncontolled afib Given Cardizem pushes this a.m. Per cardiology, increased diltiazem 60mg qid and propanolol bid fen on IVF, advance diet per gi monitor electrolytes. K and mag repleted prophy hold eliquis physical therapy Visit type - Emergency Visit Emergency Visit: Yes ED Registration Date: 12/13/18 Care time: The patient presented to the Emergency Department on the above date and was hospitalized for further evaluation of their emergent condition. - New Patient This patient is new to me today: Yes Date on this admission: 12/19/18 - Critical Care Critical Care patient: No - Discharge Referral Referred to [facility] Med P.C.: No
--- NOTE | 2018-12-19 11:59 | PN ---
Progress Note (short form) - Note Progress Note: s:no chest pain, palps, dyspnea, dizziness. Current Medications Acetaminophen (Tylenol -) 650 mg PO Q6H PRN PRN Reason: FEVER Diltiazem HCl (Cardizem -) 60 mg PO TID [facility] Last Admin: 12/19/18 06:21 Dose: 60 mg Donepezil HCl (Aricept -) 10 mg PO [facility] Last Admin: 12/18/18 22:53 Dose: 10 mg Pantoprazole Sodium 80 mg/ (Sodium Chloride) 100 mls @ 10 mls/hr IVPB Q10H [facility] Last Admin: 12/19/18 06:20 Dose: 10 mls/hr Dextrose/Sodium Chloride (D5-Ns -) 1,000 mls @ 83 mls/hr IV ASDIR [facility] Last Admin: 12/19/18 03:00 Dose: 83 mls/hr Potassium Chloride (Potassium Chloride 10 Meq Premix Ivpb -) 10 meq in 100 mls @ 100 mls/hr IVPB Q60M [facility] Stop: 12/19/18 12:44 Loratadine (Claritin -) 10 mg PO DAILY [facility] Last Admin: 12/18/18 11:29 Dose: Not Given Metoprolol Tartrate (Lopressor Injection -) 5 mg IVPUSH Q4H PRN PRN Reason: TACHYCARDIA Last Admin: 12/19/18 08:01 Dose: 5 mg Metoprolol Tartrate (Lopressor -) 25 mg PO BID [facility] Last Admin: 12/19/18 08:05 Dose: 25 mg Mirtazapine (Remeron -) 15 mg PO [facility] Last Admin: 12/18/18 22:53 Dose: 15 mg Senna/Docusate Sodium (Pericolace -) 2 tablet PO [facility] Last Admin: 12/18/18 22:52 Dose: 2 tablet Vital Signs Period Temp Pulse Resp BP Sys/Germain Pulse Ox Last 24 Hr 97.6 F-98.0 F 120-137 16-20 101-130/60-84 99-99 Constitutional: Yes: No Distress, Calm Eyes: Yes: PERRL HENT: Yes: NCAT Neck: Yes: supple, no JVD Cardiovascular: Yes: Regular Rate and Rhythm Respiratory: Yes: CTA Bilaterally Gastrointestinal: Yes: Normal Bowel Sounds Musculoskeletal: Yes: WNL Extremities: Yes: WNL Edema: No tele: aflutter rate 137 Assessment/Plan a/p: 83 f hx dementia, afib/flutter, gerd, htn, tia, [place] em[place]. GIB: -holding eliquis -Hgb 10.6 (11.0) -GI following on clear diet and PPI -Remains stable from CV perspective, no cardiac contraindications to egd/foc aflutter: - holding eliquis as above - colonoscopy deferred 3/4 due to tachycardia - continues to have high rate improved with IV meds - increase diltiazem to 60 mg QID and change metoprolol back to home propranolol 120 mg BID - change PRN medication to IV diltiazem - cont tele htn: -stable on current meds
[2018-12-19] MEDS ORDERED: dilTIAZem HCL 50 MG/10 ML - 10 ML VIAL IVPUSH PRN (13:26)
--- NOTE | 2018-12-19 14:39 | PN ---
GI Progress Note Subjective: No acute events Continued high heart rates No focal complaints no overt bleeding - Objective Vital Signs: Vital Signs Temperature 97.6 F 12/19/18 10:00 Pulse Rate 120 H 12/19/18 10:00 Respiratory Rate 20 12/19/18 10:00 Blood Pressure 106/60 12/19/18 10:00 O2 Sat by Pulse Oximetry (%) 99 12/19/18 09:00 Constitutional: Calm Eyes: No: Sclera Icterus Cardiovascular: Yes: Tachycardia (regular rhythm) Respiratory: Yes: CTA Bilaterally Gastrointestinal Inspection: No: Distention ...Auscultate: Yes: Normoactive Bowel Sounds ...Palpate: No: Hepatomegaly, Splenomegaly, Tenderness ...Percussion: No: Tympanitic Edema: Yes Edema: LLE: Trace, RLE: Trace Neurological: Yes: Alert Labs: CBC, BMP 12/19/18 05:30 12/19/18 05:30 INR, PTT INR 1.42 (0.83-1.09) H 12/14/18 05:30 Problem List - Problems (1) Gastrointestinal bleeding Assessment/Plan: Initial admission was for coffee ground emesis: EGD unrevealing so likely this reflected retained gastric content then actual GI bleeding. Guaiac positive from specimen sent from the ER so colonoscopy was planned while off A/C. High heart rates and eletrolyte abnormalities have prevented this. I had a discussion with Ms. Cruz, Ms. Peguero's HCP. will defer colonoscopy at this time and pursue as outpatient once heart rate controlled and lytes are repleted. Ms. Peguero can follow-up with me as an outpatient. [phone] Advanced diet this evening Code(s): K92.2 - GASTROINTESTINAL HEMORRHAGE, UNSPECIFIED Qualifiers: GI bleed type/associated pathology: melena Qualified Code(s): K92.1 - Melena
[2018-12-19] MEDS ORDERED: PT OWN MED DRAWER 7, Y5N ONE (21:22)
[2018-12-19] MEDS: SENNOSIDES/DOCUSATE COMBO (SENNA PLUS) TABLET (UD) PO SCH (21:26)
[2018-12-19] MEDS: DONEPEZIL HCL 10 MG TABLET (FP) PO SCH (21:27)
[2018-12-19] MEDS: MIRTAZAPINE 15 MG TABLET (FP) PO SCH (21:27)
[2018-12-20] MEDS: dilTIAZem HCL 60 MG TABLET (FP) PO SCH ×3 (00:15→11:23)
[2018-12-20] MEDS ORDERED: PT OWN MED DRAWER 7, Y5N ONE (06:38)
[2018-12-20 06:41] LABS: BASO % 0.8 % (0-2.0); EOS % 3.2 % (0-4.5); HEMATOCRIT 32.3 % (32.4-45.2); HEMOGLOBIN 10.5 GM/dL (10.7-15.3); LYMPH % 30.3 % (8-40); MCH 24.5 pg (25.7-33.7); MCHC 32.7 g/dl (32.0-36.0); MEAN CELL VOLUME 75.1 fl (80-96); MEAN PLT VOLUME 8.6 fl (7.5-11.1); MONO % 7.8 % (3.8-10.2); NEUT % 57.9 % (42.8-82.8); PLATELET COUNT 226 K/MM3 (134-434); RDW 19.6 % (11.6-15.6); WHITE BLOOD COUNT 6.8 K/mm3 (4.0-10.0)
[2018-12-20 07:07] LABS: ALBUMIN 2.4 g/dl (3.4-5.0); ALK PHOS 57 U/L (45-117); ANION GAP 7 MMOL/L (8-16); BILIRUBIN,TOTAL 0.5 mg/dL (0.2-1); CALCIUM 7.7 mg/dL (8.5-10.1); CHLORIDE 112 mmol/L (98-107); CO2 21 mmol/L (21-32); CREATININE 0.6 mg/dL (0.55-1.3); GLUCOSE,RANDOM 77 mg/dL (74-106); MAGNESIUM 1.7 mg/dL (1.8-2.4); POTASSIUM 3.4 mmol/L (3.5-5.1); SGOT/AST 18 U/L (15-37); SGPT/ALT 25 U/L (13-61); SODIUM 140 mmol/L (136-145); TOT PROT 4.9 g/dl (6.4-8.2)
[2018-12-20 07:36] LABS: BLOOD UREA NITROGEN 2 mg/dL (7-18)
[2018-12-20] MEDS ORDERED: MAGNESIUM OXIDE 400 MG TABLET (FP) PO ONE (08:30)
--- NOTE | 2018-12-20 10:21 | PN ---
Progress Note, Physician Chief Complaint: Heme positive stool, coffee ground emesis, anemia. Now clinically resolved, but colonoscopy deferred due to continued tachycardia and electrolyte abnormalities. History of Present Illness: Feels fine from GI standpoint. No blood/bleeding. - Current Medication List Current Medications: Active Medications Acetaminophen (Tylenol -) 650 mg PO Q6H PRN PRN Reason: FEVER Diltiazem HCl (Cardizem -) 60 mg PO Q6HPO [facility] Last Admin: 12/20/18 06:04 Dose: 60 mg Diltiazem HCl (Cardizem Injection -) 10 mg IVPUSH Q4H PRN PRN Reason: TACHYCARDIA Last Admin: 12/19/18 16:12 Dose: 10 mg Donepezil HCl (Aricept -) 10 mg PO HS [facility] Last Admin: 12/19/18 21:27 Dose: 10 mg Dextrose/Sodium Chloride (D5-Ns -) 1,000 mls @ 83 mls/hr IV ASDIR [facility] Last Admin: 12/19/18 03:00 Dose: 83 mls/hr Loratadine (Claritin -) 10 mg PO DAILY [facility] Last Admin: 12/18/18 11:29 Dose: Not Given Mirtazapine (Remeron -) 15 mg PO [facility] Last Admin: 12/19/18 21:27 Dose: 15 mg Propranolol HCl (Inderal La -) 120 mg PO BID [facility] Last Admin: 12/19/18 21:27 Dose: 120 mg Senna/Docusate Sodium (Pericolace -) 2 tablet PO [facility] Last Admin: 12/19/18 21:26 Dose: 2 tablet - Objective Vital Signs: Vital Signs Temperature 98.1 F 12/20/18 06:00 Pulse Rate 126 H 12/20/18 06:00 Respiratory Rate 20 12/20/18 06:00 Blood Pressure 125/77 12/20/18 06:00 O2 Sat by Pulse Oximetry (%) 99 12/19/18 21:00 Constitutional: Yes: Well Nourished, No Distress Gastrointestinal: Yes: Normal Bowel Sounds, Soft. No: Tenderness Labs: CBC, BMP 12/20/18 05:30 12/20/18 05:30 INR, PTT INR 1.42 (0.83-1.09) H 12/14/18 05:30 Assessment/Plan Proceed with ambulatory colonoscopy once CV and electrolyte issues resolved as noted by Dr. Rodriguez.
[2018-12-20] MEDS: LORATADINE 10 MG TABLET PO SCH ×2 (10:22→11:23)
[2018-12-20] MEDS ORDERED: PANTOPRAZOLE 40 MG TABLET (FP) PO SCH (10:45)
[2018-12-20] MEDS ORDERED: KCL 10 MEQ IVPB 10 MEQ/100 ML INFUS.BAG IVPB SCH (10:50)
--- NOTE | 2018-12-20 11:22 | DS ---
Physical Exam: SUBJECTIVE: Patient seen and examined OBJECTIVE: Vital Signs Period Temp Pulse Resp BP Sys/Germain Pulse Ox Last 24 Hr 97.8 F-98.2 F 91-132 18-20 90-125/46-77 99-99 PHYSICAL EXAM GENERAL: The patient is awake, alert, and fully oriented, in no acute distress. HEAD: Normal with no signs of trauma. EYES: PERRL, extraocular movements intact, sclera anicteric, conjunctiva clear. ENT: Ears normal, nares patent, oropharynx clear without exudates, moist mucous membranes. NECK: Trachea midline, full range of motion, supple. LUNGS: Breath sounds equal, clear to auscultation bilaterally, no wheezes, no crackles, no accessory muscle use. HEART: Regular rate and rhythm, S1, S2 without murmur, rub or gallop. ABDOMEN: Soft, nontender, nondistended, normoactive bowel sounds, no guarding, no rebound, no hepatosplenomegaly, no masses. EXTREMITIES: 2+ pulses, warm, well-perfused, no edema. NEUROLOGICAL: Cranial nerves II through XII grossly intact. Normal speech, gait not observed. PSYCH: Normal mood, normal affect. SKIN: Warm, dry, normal turgor, no rashes or lesions noted. LABS Laboratory Results - last 24 hr 12/20/18 12/20/18 05:30 05:30 WBC 6.8 RBC 4.30 Hgb 10.5 L Hct 32.3 L MCV 75.1 L MCH 24.5 L MCHC 32.7 RDW 19.6 H Plt Count 226 MPV 8.6 Absolute Neuts (auto) 4.0 Neutrophils % 57.9 Lymphocytes % 30.3 Monocytes % 7.8 Eosinophils % 3.2 Basophils % 0.8 Nucleated RBC % 0 Sodium 140 Potassium 3.4 L Chloride 112 H Carbon Dioxide 21 Anion Gap 7 L BUN 2 L* Creatinine 0.6 Creat Clearance w eGFR > 60 Random Glucose 77 Calcium 7.7 L Magnesium 1.7 L Total Bilirubin 0.5 AST 18 ALT 25 Alkaline Phosphatase 57 Total Protein 4.9 L Albumin 2.4 L HOSPITAL COURSE: Date of Admission:12/13/18 Date of Discharge: 12/20/18 Discharge Summary Reason For Visit: GASTOINTESTINAL HEMORRHAGE/ FLUTTER-FIBRILLATION Current Active Problems Flutter-fibrillation (Acute) Gastrointestinal bleeding (Acute) Condition: Fair - Instructions Diet, Activity, Other Instructions: Mrs Peguero[facility] staff. You were admitted for concerns of a GI bleed. Ideally, you would need a colonoscopy but we were unable to perform one since your heart rate was not controlled and you had electrolyte abnormalities. Here are our recommendations: Acute GI bleed/coffee ground emesis. resolved. Your hemoglobin is stable and you will be sent home with instructions to have your blood work repeated within 3 days to monitor your hemoglobin and electrolytes closely. Your diet has been re started and you can eat as you normally do. You had an EGD that was negative and did not explain your bleeding. However, because of your elevated heart rate, we were not able to do a colonoscopy here. Your heart rate has improved and we highly recommend that you follow up with Dr. Rodriguez (GI specialist) as an outpatient for a colonoscopy. Please call for an appointment at [phone]. Before you see him, please make sure that your have en electrolyte lab panel done so that we make sure your potassium and magnesium are back to normal. We have repleted your electrolytes here. Uncontolled afib. Irregular heart rate. We have adjusted your home medications to control your heart rate. You now on Cardizem and Propanolol. Please follow up with the clam grader within 1-2 weeks after discharge. They will need to clear you before you undergo any workup such as a colonoscopy. We have started you back on Eliquis. Continue taking the Protonix daily for stomach protection. continue Propanalol 120mg twice per day Cardizem 60mg every 6 hours Thank you for allowing us to care for you. Yaritza Isaacs [facility] @ [facility] [phone] Referrals: Ever Rodriguez DO [Staff Physician] - Rahel Lawson MD [Staff Physician] - 1 Week Fatimah Henson MD [Primary Care Provider] - [facility]position: [facility] - Home Medications Comprehensive Discharge Medication List: Ambulatory Orders Donepezil HCl [Aricept] 10 mg PO HS 07/23/15 Apixaban [Eliquis -] 5 mg PO BID #60 tablet 07/30/15 Fluticasone Prop 0.05% Nasal [Flonase -] 2 spray NS DAILY #1 bottle 10/14/15 Ferrous Gluconate [Iron] 240 mg PO DAILY 12/13/18 Loratadine [Claritin -] 10 mg PO DAILY 12/13/18 Mirtazapine [Remeron -] 15 mg PO HS 12/13/18 Propranolol HCl [Inderal LA] 120 mg PO BID 12/13/18 Sennosides/Docusate Sodium [Senokot-S Tablet] 2 each PO HS 12/13/18 Diltiazem [Cardizem -] 60 mg PO Q6HPO tablet 12/20/18 propRANOLol HCL [Inderal LA -] 120 mg PO BID capsule.er 12/20/18 - Discharge Referral Referred to [facility] No
--- NOTE | 2018-12-20 11:45 | PN ---
Progress Note (short form) - Note Progress Note: s:no chest pain, palps, dyspnea, dizziness. Current Medications Acetaminophen (Tylenol -) 650 mg PO Q6H PRN PRN Reason: FEVER Diltiazem HCl (Cardizem -) 60 mg PO Q6HPO [facility] Last Admin: 12/20/18 11:23 Dose: 60 mg Diltiazem HCl (Cardizem Injection -) 10 mg IVPUSH Q4H PRN PRN Reason: TACHYCARDIA Last Admin: 12/19/18 16:12 Dose: 10 mg Donepezil HCl (Aricept -) 10 mg PO [facility] Last Admin: 12/19/18 21:27 Dose: 10 mg Dextrose/Sodium Chloride (D5-Ns -) 1,000 mls @ 83 mls/hr IV ASDIR [facility] Last Admin: 12/19/18 03:00 Dose: 83 mls/hr Potassium Chloride (Potassium Chloride 10 Meq Premix Ivpb -) 10 meq in 100 mls @ 100 mls/hr IVPB Q60M [facility] Stop: 12/20/18 11:49 Last Admin: 12/20/18 11:23 Dose: 100 mls/hr Loratadine (Claritin -) 10 mg PO DAILY [facility] Last Admin: 12/20/18 11:23 Dose: 10 mg Mirtazapine (Remeron -) 15 mg PO [facility] Last Admin: 12/19/18 21:27 Dose: 15 mg Pantoprazole Sodium (Protonix -) 40 mg PO DAILY [facility] Last Admin: 12/20/18 11:23 Dose: 40 mg Propranolol HCl (Inderal La -) 120 mg PO BID [facility] Last Admin: 12/20/18 10:24 Dose: 120 mg Senna/Docusate Sodium (Pericolace -) 2 tablet PO [facility] Last Admin: 12/19/18 21:26 Dose: 2 tablet Vital Signs Period Temp Pulse Resp BP Sys/Germain Pulse Ox Last 24 Hr 97.8 F-98.2 F 91-132 18-20 90-125/46-77 99-99 Constitutional: Yes: No Distress, Calm Eyes: Yes: PERRL HENT: Yes: NCAT Neck: Yes: supple, no JVD Cardiovascular: Yes: Regular Rate and Rhythm Respiratory: Yes: CTA Bilaterally Gastrointestinal: Yes: Normal Bowel Sounds Musculoskeletal: Yes: WNL Extremities: Yes: WNL Edema: No tele: aflutter rate controlled Assessment/Plan a/p: 83 f hx dementia, afib/flutter, gerd, htn, tia, sent from [place] for coffee ground emesis. GIB: -Hgb 10.6 (11.0) -GI following on clear diet and PPI -Remains stable from CV perspective, no cardiac contraindications to egd/foc - plan to be done as outpatient aflutter: - colonoscopy deferred 3/ due to tachycardia - increased diltiazem to 60 mg QID and changed metoprolol back to home propranolol 120 mg BID, rate improved continue - change PRN medication to IV diltiazem - restart eliquis, plan for colonoscopy as outpatient - stable for dc from cardiac perspective htn: -stable on current meds
[2018-12-20 15:10] VITALS: BMI 24.5
[2018-12-20 15:55] VITALS: BP 108/63; PULSE 84; TEMP 98
== END 2018-12-20 16:18 | DRG 378 ==
LOC: JER 11:27 → JERBED 16:20 → J4W 22:54
PROVIDERS: ADMIT Internal Medicine; ATTEND Nurse Practitioner Family
PROC: 0DB68ZX Excision of Stomach, Via Natural or Artificial Opening Endoscopic, Diagnostic (ICD-10-PCS; principal; 2018-12-15 11:30)
DX: K92.2 Gastrointestinal hemorrhage, unspecified (principal); I48.92 Unspecified atrial flutter; R44.3 Hallucinations, unspecified; I48.91 Unspecified atrial fibrillation; I10 Essential (primary) hypertension; K21.9 Gastro-esophageal reflux disease without esophagitis; F03.90 Unspecified dementia, unspecified severity, without behavioral disturbance, psychotic disturbance, mood disturbance, and anxiety; K20.9 Esophagitis, unspecified; R27.0 Ataxia, unspecified; I44.1 Atrioventricular block, second degree; D32.9 Benign neoplasm of meninges, unspecified; D72.829 Elevated white blood cell count, unspecified; E87.6 Hypokalemia; E83.42 Hypomagnesemia; R00.0 Tachycardia, unspecified; K29.70 Gastritis, unspecified, without bleeding; K31.9 Disease of stomach and duodenum, unspecified; D64.9 Anemia, unspecified; Z86.73 Personal history of transient ischemic attack (TIA), and cerebral infarction without residual deficits
CPT/HCPCS: 36415; 71045-TC-FY; 80048; 80053; 82272; 82550; 83690; 83735; 83880; 84100; 84443; 84484; 85025; 85027; 85610; 85730; 86850; 86900; 86901; 88305-TC; 93005; 93010; 99285-25

== ENCOUNTER 2018-12-21 08:34 | Inpatient (IN) | payer OTHER ==
--- NOTE | 2018-12-21 08:51 | PDOC ---
History of Present Illness - General Chief Complaint: Nausea/Vomiting Stated Complaint: VOMITING Time Seen by Provider: 12/21/18 08:45 - History of Present Illness Initial Comments: 12/21/18 08:48 83 yo FD with h/o A-fib ( Eliquis), A-flutter, GERD, Dementia, who p/w tachycardia. Patient denies nausea and vomitting. Arrives from [facility] with report of tachycardia ~ HR 120, and emesis. However, patient denies vomiting, or other complaints. Recent [facility] admission UGI bleed, and new onset A-flutter 12/13/2018- 12/21/18. Was referred to GI Dr. Poole/GI for outpt. colonoscopy. Patient denies WALL, vision change, palpitations, cough, wheezing, orthopena, PND , leg swelling/pain, F,C, CP, SOB, urinary complaints, hematuria, BPR, abdominal pain, diarrhea, constipation, lightheadedness, weakness, sensory changes. PMHx: as noted above ROS: as noted Allergies: NKDA PMD: Fatimah Hernandez Cardiology: Dr. Philip Santos. Past History - Past Medical History Allergies/Adverse Reactions: Allergies Allergy/AdvReac Type Severity Reaction Status Date / Time No Known Allergies Allergy Verified 12/21/18 08:50 Home Medications: Ambulatory Orders Donepezil HCl [Aricept] 10 mg PO HS 07/23/15 Apixaban [Eliquis -] 5 mg PO BID #60 tablet 07/30/15 Fluticasone Prop 0.05% Nasal [Flonase -] 2 spray NS DAILY #1 bottle 07/30/15 Ferrous Gluconate [Iron] 240 mg PO DAILY 12/13/18 Loratadine [Claritin -] 10 mg PO DAILY 12/13/18 Mirtazapine [Remeron -] 15 mg PO HS 12/13/18 Propranolol HCl [Inderal LA] 120 mg PO BID 12/13/18 Sennosides/Docusate Sodium [Senokot-S Tablet] 2 each PO HS 12/13/18 Diltiazem [Cardizem -] 60 mg PO Q6HPO tablet 12/20/18 propRANOLol HCL [Inderal LA -] 120 mg PO BID capsule.er 12/20/18 COPD: No Dementia: Yes GI Disorders: Yes (reflux, esophogitis) HTN: Yes Psychiatric Problems: Yes (hallucinations,ataxia) - Immunization History Immunization Up to Date: Yes - Suicide/Smoking/Psychosocial Hx Smoking History: Smoker current status UNK Have you smoked in the past 12 months: No Hx Alcohol Use: No Drug/Substance Use Hx: No Substance Use Type: None Hx Substance Use Treatment: No Review of Systems - Review of Systems Comments:: 12/21/18 08:48 GENERAL/CONSTITUTIONAL: No fever or chills. No weakness. HEAD, EYES, EARS, NOSE AND THROAT: No change in vision. No ear pain or discharge. No sore throat. CARDIOVASCULAR: No chest pain or shortness of breath RESPIRATORY: No cough, wheezing, or hemoptysis. GASTROINTESTINAL: No nausea, vomiting, diarrhea or constipation. GENITOURINARY: No dysuria, frequency, or change in urination. MUSCULOSKELETAL: No joint or muscle swelling or pain. No neck or back pain. SKIN: No rash NEUROLOGIC: No headache, vertigo, loss of consciousness, or change in strength/ sensation. ENDOCRINE: No increased thirst. No abnormal weight change HEMATOLOGIC/LYMPHATIC: No anemia, easy bleeding, or history of blood clots. ALLERGIC/IMMUNOLOGIC: No hives or skin allergy. *Physical Exam - Physical Exam Comments: 12/21/18 08:49 GENERAL: Awake, alert, and fully oriented, in no acute distress HEAD: No signs of trauma, normocephalic, atraumatic EYES: PERRLA, EOMI, sclera anicteric, conjunctiva clear ENT: Auricles normal inspection, hearing grossly normal, nares patent, oropharynx clear without exudates. Moist mucosa NECK: Normal ROM, supple, no lymphadenopathy, JVD, or masses LUNGS: No distress, speaks full sentences, clear to auscultation bilaterally HEART: Irregular rate and nml rhythm, normal S1 and S2, no murmurs, rubs or gallops, peripheral pulses normal and equal bilaterally. ABDOMEN: Soft, nontender, normoactive bowel sounds. No guarding, no rebound. No masses EXTREMITIES : Normal inspection, Normal range of motion, no edema. No clubbing or cyanosis. NEUROLOGICAL: Cranial nerves II through XII grossly intact. Normal speech, normal gait, no focal sensorimotor deficits SKIN: Warm, Dry, normal turgor, no rashes or lesions noted ED Treatment Course - LABORATORY CBC & Chemistry Diagram: 12/21/18 09:35 12/21/18 08:49 Medical Decision Making - Medical Decision Making 12/21/18 08:57 83 yo FD with h/o A-fib ( Eliquis), A-flutter, GERD, Dementia, who p/w tachycardia. HR 127 (baseline 110-120), temp 96.2, vitals otherwise wnl, A&O. Physical exam unremarkable. ACS/AK r/o. Low suspicion PE. Low risk PE based on Weils criteria. Will asses dehydration, cardiac dysarrythmias, hypoglycemia, electrolyte abnml, metabolic and toxic derangements, acid-base disturbances, infection. ED Course: 12/21/18 10:22 Patient currently stable EKG: Afib, A-flutter with 2:1 AV conduction, HR 127 no acute DAQUAN, or STD. Similar to interval EKG (12/05) Diltiazem 60 mg PO, 10 mg IVPB 12/21/18 11:47 CBC: Unremarkable CMP: Unremarkable Trop: Neg Contacted Pt. Jar Filler Philip Santos, awaiting call back. 12/21/18 12:49 Attempted to contacted Philip Santos, second page. Awaiting call back. 12/21/18 12:52 Discussed tachycardia with Philip Santos, will give home dose Propranolol. Reports patient is stable for d/c despite HR 120's. 12/21/18 13:33 Advised to f/u with cardiology. 12/21/18 13:57 Patient with episode of NBNB emesis. CT AP pending. R/o SBO. Rosangela Plan to admit for obs/tele Pt. endorsed to [facility] Eug[facility]. Admit to tele. Dr. Damon. *DC/Admit/Observation/Transfer Diagnosis at time of Disposition: Tachycardia, Atrial fibrillation with RVR - Discharge Dispostion Condition at time of disposition: Stable Decision to Admit order: Yes - Referrals Referrals: Fatimah Henson MD [Primary Care Provider] - - Patient Instructions Printed Discharge Instructions: DI for Vomiting -- Adult Additional Instructions: Please return to the emergency department with any new or worsening symptoms or concerns. Please follow up with your aerial applicator pilot and primary care physician within 72 hours. - Post Discharge Activity - Attestations Physician Attestion: 12/21/18 13:34 I attest to the information provided in this note.
--- NOTE | 2018-12-21 09:10 | PDOC ---
Attending Attestation - Resident Resident Name: Neil Walsh - HPI HPI: 12/21/18 10:41 Pt presents to the ED after sent in from [place] for vomiting. Patient has recent admission, discharged yesterday, for UGI bleed. Endoscopy performed during previous admission was negative. Of note, patient was persistently tachycardic throughout most of her hospital admission. Pt denies vomiting, nausea or any other complaints. It is unclear whether she was given her rate control medications by the fpc this AM. - Physicial Exam PE: 12/21/18 10:48 Agree with resident exam. PAtient is alert, in NAD. Heart: irregular, tachycardic, no murmurs. Pulm: CTA b/l abd:soft, non tender, non distended, no guarding or rebound. - Medical Decision Making 12/21/18 10:54 PT presents to the ED after sent in from [place] for vomiting. Denies complaints of vomiting. Patient has rapid a fib in the ED. Of note, patient remained tachycardic throughout her entire hospital admission. Given her home medications--will reassess tachycardia. Will check labs to rule out secondary causes of tachycardia, including severe anemia or electrolyte disturbance. Will discuss rate control with cardiology, since she appeared to be persistently tachycardic during her previous admission despite attempts at rate control.
[2018-12-21] MEDS ORDERED: dilTIAZem HCL 50 MG/10 ML - 10 ML VIAL IVPUSH ONE (09:21)
[2018-12-21] MEDS ORDERED: dilTIAZem HCL 125 MG/25 ML - 25 ML VIAL ONE (09:41)
[2018-12-21 09:58] LABS: BASO % 0.8 % (0-2.0); EOS % 0.1 % (0-4.5); HEMATOCRIT 37.6 % (32.4-45.2); LYMPH % 15.1 % (8-40); MCHC 31.8 g/dl (32.0-36.0); MEAN CELL VOLUME 75.5 fl (80-96); MONO % 5.2 % (3.8-10.2); NEUT % 78.8 % (42.8-82.8); PLATELET COUNT 269 K/MM3 (134-434); RBC 4.99 M/mm3 (3.60-5.2); WHITE BLOOD COUNT 10.7 K/mm3 (4.0-10.0)
[2018-12-21] MEDS ORDERED: dilTIAZem HCL 60 MG TABLET (FP) PO ONE (10:10)
[2018-12-21] MEDS ORDERED: dilTIAZem HCL 60 MG TABLET (FP) ONE (10:19)
[2018-12-21 10:42] LABS: INR 1.13 (0.83-1.09); PROTHROMBIN TIME (PATIENT) 13.4 SEC (9.7-13.0)
[2018-12-21 11:24] LABS: ALBUMIN 2.9 g/dl (3.4-5.0); ALK PHOS 72 U/L (45-117); ANION GAP 11 MMOL/L (8-16); BILIRUBIN,TOTAL 0.6 mg/dL (0.2-1); BLOOD UREA NITROGEN 10 mg/dL (7-18); CALCIUM 8.4 mg/dL (8.5-10.1); CHLORIDE 108 mmol/L (98-107); CO2 21 mmol/L (21-32); CREATININE 0.8 mg/dL (0.55-1.3); GLUCOSE,RANDOM 116 mg/dL (74-106); LIPASE 98 U/L (73-393); MAGNESIUM 1.6 mg/dL (1.8-2.4); SGOT/AST 17 U/L (15-37); SGPT/ALT 17 U/L (13-61); SODIUM 141 mmol/L (136-145); TOT PROT 5.8 g/dl (6.4-8.2)
[2018-12-21] MEDS ORDERED: ONDANSETRON 4 MG/2 ML VIAL IVPB ONE (14:32)
[2018-12-21] MEDS ORDERED: ONDANSETRON 4 MG/2 ML VIAL ONE (14:47)
--- NOTE | 2018-12-21 16:38 | HP ---
CHIEF COMPLAINT: nausea/vomiting PCP: HISTORY OF PRESENT ILLNESS: Patient is an 83 year old female with past medical history of reflux, esophagitis, dementia, hallucinations, ataxia, HTN, benign neoplasm of cerebral meninges, who presents to the emergency department via EMS from assisted due to nausea and vomiting that started today. She was evaluated in the ED and was noted to be with afib with RVR . Patient is a poor historian and confused at baseline. She was mostly recently at [facility] between 12/13/2018 and 12/20/2018 for vomitus with coffee ground emesis. She is s/p EGD which was negative. A colonoscopy was not done secondary to electroyte imbalance and persistent tachycardia. She was discharged and recommended to follow up with GI outpatient for a colonscopy. On last admission, she did not have any nausea or vomiting and tolerated her diet. She had a BM on 12/19/2018 during her hospital stay. Abdominal CT w/o contrast 12/21/18 shows diffuse to moderate marked dilatation of the small bowel including the terminal ileum with significant dilatation of the cecum and proximal ascending colon up to a point of transition seen in the proximal/mid ascending colon where there is suggestion of wall thickening and collapse of the rest of the colon consistent with obstruction. ER course was notable for: (1) abd ct consistent with obstruction (2) afib with rvr (3) mag 1.6 Family History: Allergies No Known Allergies Allergy (Verified 12/21/18 08:50) HOME MEDICATIONS: Home Medications Medication Instructions Recorded Donepezil HCl [Aricept] 10 mg PO HS 07/23/15 Apixaban [Eliquis -] 5 mg PO BID #60 tablet 07/30/15 Fluticasone Prop 0.05% Nasal 2 spray NS DAILY #1 bottle 07/30/15 [Flonase -] Ferrous Gluconate [Iron] 240 mg PO DAILY 12/13/18 Loratadine [Claritin -] 10 mg PO DAILY 12/13/18 Mirtazapine [Remeron -] 15 mg PO HS 12/13/18 Propranolol HCl [Inderal LA] 120 mg PO BID 12/13/18 Sennosides/Docusate Sodium 2 each PO HS 12/13/18 [Senokot-S Tablet] Diltiazem [Cardizem -] 60 mg PO Q6HPO tablet 12/20/18 propRANOLol HCL [Inderal LA -] 120 mg PO BID capsule.er 12/20/18 REVIEW OF SYSTEMS PHYSICAL EXAMINATION Vital Signs - 24 hr 12/21/18 12/21/18 12/21/18 08:47 12:03 13:14 Temperature 96.2 F L 98.3 F Pulse Rate 127 H Pulse Rate [ 127 H 122 H Apical] Respiratory 18 16 Rate Blood Pressure 112/87 Blood Pressure 98/67 [Right] O2 Sat by Pulse 95 97 Oximetry (%) GENERAL: awake, alert, confused at baseline HEAD: Normal with no signs of trauma. EYES: Pupils equal, round and reactive to light, extraocular movements intact, sclera anicteric, conjunctiva clear. No lid lag. EARS, NOSE, THROAT: Ears normal, nares patent, oropharynx clear without exudates. Moist mucous membranes. NECK: Normal range of motion, supple without lymphadenopathy, JVD, or masses. LUNGS: Breath sounds equal, clear to auscultation bilaterally. No wheezes HEART: afib with RVR ABDOMEN: Soft, tender, distended, + hypoactive bowel sounds on lower quadrants MUSCULOSKELETAL: Normal range of motion at all joints. No bony deformities or tenderness. No CVA tenderness. UPPER EXTREMITIES: No peripheral edema. LOWER EXTREMITIES: No peripheral edema. NEUROLOGICAL: Normal speech. Normal gait. PSYCHIATRIC: Appropriate mood and affect. SKIN: Warm, dry, normal turgor, no rashes or lesions noted, normal capillary refill. Laboratory Results - last 24 hr 12/21/18 12/21/18 12/21/18 08:49 09:35 09:35 WBC 10.7 H RBC 4.99 Hgb 12.0 Hct 37.6 D MCV 75.5 L MCH 24.0 L MCHC 31.8 L RDW 20.0 H Plt Count 269 MPV 9.0 Absolute Neuts (auto) 8.4 H Neutrophils % 78.8 D Lymphocytes % 15.1 D Monocytes % 5.2 Eosinophils % 0.1 D Basophils % 0.8 Nucleated RBC % 0 PT with INR 13.40 H INR 1.13 H Sodium 141 Potassium 4.0 Chloride 108 H Carbon Dioxide 21 Anion Gap 11 BUN 10 Creatinine 0.8 Creat Clearance w eGFR > 60 Random Glucose 116 H Calcium 8.4 L Magnesium 1.6 L Total Bilirubin 0.6 AST 17 ALT 17 Alkaline Phosphatase 72 Creatine Kinase 26 Troponin I 0.02 Total Protein 5.8 L Albumin 2.9 L Lipase 98 ASSESSMENT/PLAN: Patient is an 83 year old female with past medical history of reflux, esophagitis, dementia, hallucinations, ataxia, HTN, benign neoplasm of cerebral meninges, who presents to the emergency department via EMS from assisted due to nausea and vomiting that started today. She was evaluated in the ED and was noted to be with afib with RVR . Patient is a poor historian and confused at baseline. She was mostly recently at [facility] between 12/13/2018 and 12/20/2018 for vomitus with coffee ground emesis. She is s/p EGD which was negative. A colonoscopy was not done secondary to electroyte imbalance and persistent tachycardia. She was discharged and recommended to follow up with GI outpatient for a colonscopy. On last admission, she did not have any nausea or vomiting and tolerated her diet. She had a BM on 12/18/2018 during her hospital stay. Imaging: Abdominal CT w/o contrast 12/21/18 shows diffuse to moderate marked dilatation of the small bowel including the terminal ileum with significant dilatation of the cecum and proximal ascending colon up to a point of transition seen in the proximal/mid ascending colon where there is suggestion of wall thickening and collapse of the rest of the colon consistent with obstruction. EKG: Afib, Aflutter with 2:1 AV conduction, HR 120s GI: Acute bowel obstructions seen on Abd CT Keep strictly NPO NGT to low intermittent suction if starts to vomit Start IVF hydration Surgery consulted Abdominal xray in a.m. Cardiac Uncontolled afib with RVR Given Diltiazem 60 mg PO, 10 mg IVPB in the ED Hold PO meds and start on scheduled metoprolol IV Cardizem drip if remains uncontrolled Cardiology consulted Hypertension. Monitor bp q 4 hours fen IVF NPO Protonix prophy physical therapy SCDs and CHLOE stockings Code status needs clarification with DE Visit type - Emergency Visit Emergency Visit: Yes ED Registration Date: 12/21/18 Care time: The patient presented to the Emergency Department on the above date and was hospitalized for further evaluation of their emergent condition. - New Patient This patient is new to me today: No - Critical Care Critical Care patient: No
[2018-12-21] MEDS ORDERED: SODIUM CHLORIDE 1,000 ML IV STA (17:00)
[2018-12-21] MEDS ORDERED: MAGNESIUM 1GM/D5W - 1 GM/100 ML IVPB IVPB ONE (19:15)
[2018-12-21] MEDS ORDERED: MAGNESIUM SULF 50% (8.12 MEQ/2 ML-1 GM VIAL) IVPB ONE (19:15)
[2018-12-21] MEDS ORDERED: MAGNESIUM SULF 50% (8.12 MEQ/2 ML-1 GM VIAL) ONE (20:16)
[2018-12-21] MEDS: PANTOPRAZOLE SODIUM 40 MG VIAL IVPUSH SCH (20:24)
[2018-12-21] MEDS: METOPROLOL TARTRATE 5 MG/5 ML VIAL IVPUSH SCH ×2 (20:24→22:47)
[2018-12-21] MEDS ORDERED: HALOPERIDOL LACTATE 5 MG/ML IM ONE (22:15)
[2018-12-21] MEDS: SODIUM CHLORIDE 1,000 ML IV SCH (22:47)
[2018-12-21] MEDS ORDERED: ONDANSETRON 4 MG/2 ML VIAL IVPUSH PRN (23:40)
[2018-12-22] MEDS: METOPROLOL TARTRATE 5 MG/5 ML VIAL IVPUSH SCH ×4 (01:51→14:58)
[2018-12-22 03:34] LABS: URINE APPEARANCE CLOUDY; URINE COLOR AMBER; URINE GLUCOSE (UA) NEGATIVE (NEGATIVE); URINE KETONE TRACE (NEGATIVE); URINE LEUK ESTERASE TRACE (NEGATIVE); URINE NITRITE NEGATIVE (NEGATIVE); URINE PROTEIN 2+ (NEGATIVE); URINE UROBILINOGEN NEGATIVE mg/dL (0.2-1.0)
[2018-12-22 03:49] LABS: EPI CELLS FEW /HPF (FEW); URINE BACTERIA RARE /hpf (NONE SEEN); URINE HYALINE CAST 39 /lpf; URINE MUCUS MANY
[2018-12-22 07:04] LABS: BASO % 0.3 % (0-2.0); EOS % 0.1 % (0-4.5); HEMATOCRIT 39.6 % (32.4-45.2); HEMOGLOBIN 12.7 GM/dL (10.7-15.3); LYMPH % 16.8 % (8-40); MCH 24.3 pg (25.7-33.7); MEAN PLT VOLUME 9.6 fl (7.5-11.1); MONO % 6.6 % (3.8-10.2); NEUT % 76.2 % (42.8-82.8); PLATELET COUNT 289 K/MM3 (134-434); RBC 5.21 M/mm3 (3.60-5.2); RDW 19.3 % (11.6-15.6); WHITE BLOOD COUNT 11.4 K/mm3 (4.0-10.0)
[2018-12-22 08:11] LABS: ALK PHOS 62 U/L (45-117); ANION GAP 8 MMOL/L (8-16); BILIRUBIN,TOTAL 0.6 mg/dL (0.2-1); BLOOD UREA NITROGEN 18 mg/dL (7-18); CALCIUM 8.6 mg/dL (8.5-10.1); CHLORIDE 107 mmol/L (98-107); CO2 25 mmol/L (21-32); GLUCOSE,RANDOM 115 mg/dL (74-106); MAGNESIUM 2.1 mg/dL (1.8-2.4); PHOSPHOROUS 4.9 mg/dL (2.5-4.9); POTASSIUM 3.9 mmol/L (3.5-5.1); SGOT/AST 12 U/L (15-37); SGPT/ALT 18 U/L (13-61); SODIUM 140 mmol/L (136-145); TOT PROT 5.9 g/dl (6.4-8.2)
--- NOTE | 2018-12-22 09:52 | CON.GI ---
Consult Consult Specialty:: GI Referred by:: Hospitalist Service Reason for Consultation:: Bowel obstruction - History of Present Illness Chief Complaint: Vomiting History of Present Illness: 83F transferred from [place] for evaluation of vomiting. VT scan in the ED c/w bowel obstruction with transition in the mid ascending colon. Was admitted last week for coffee ground emesis. EGD was unrevealing. Was prepped for colon however she had persistent electrolyte abnormnalities and rapid heart rate. I advised follow-up as outpatient to discuss colonoscopy once her heart rate and electrolyte abnormalities were resolved. She currently states feeling wel. She denies any focal GI complaints. NGT was placed by Juan Marielena's nurse this morning as she had continued feculent vomiting. - History Source History Provided By: Patient, Medical Record - Past Medical History [employer]ING: Yes: Dementia (mild), Other (?meningioma) Cardio/Vascular: Yes: HTN Gastrointestinal: Yes: GERD ...: No - Alcohol/Substance Use Hx Alcohol Use: No History of Substance Use: reports: None - Smoking History Smoking history: Former smoker Have you smoked in the past 12 months: No - Social History Usual Living Arrangement: [facility] ADL: Support Services Place of : [facility] History of Recent Travel: No Home Medications - Allergies Allergies/Adverse Reactions: Allergies Allergy/AdvReac Type Severity Reaction Status Date / Time No Known Allergies Allergy Verified 12/21/18 08:50 - Home Medications Home Medications: Ambulatory Orders Donepezil HCl [Aricept] 10 mg PO HS 07/23/15 Apixaban [Eliquis -] 5 mg PO BID #60 tablet 07/30/15 Fluticasone Prop 0.05% Nasal [Flonase -] 2 spray NS DAILY #1 bottle 07/30/15 Ferrous Gluconate [Iron] 240 mg PO DAILY 12/13/18 Loratadine [Claritin -] 10 mg PO DAILY 12/13/18 Mirtazapine [Remeron -] 15 mg PO HS 12/13/18 Propranolol HCl [Inderal LA] 120 mg PO BID 12/13/18 Sennosides/Docusate Sodium [Senokot-S Tablet] 2 each PO HS 12/13/18 Diltiazem [Cardizem -] 60 mg PO Q6HPO tablet 12/20/18 propRANOLol HCL [Inderal LA -] 120 mg PO BID capsule.er 12/20/18 Family Disease History - Family Disease History Other Family History: No family history of colon cancer Review of Systems - Review of Systems Constitutional: denies: Chills Cardiovascular: denies: Chest Pain Respiratory: denies: SOB Gastrointestinal: reports: Abdominal Pain, Bloating, Vomiting. denies: Diarrhea , Vomiting Blood Physical Exam-GI Vital Signs: Vital Signs Temperature 97.4 F L 12/22/18 06:00 Pulse Rate 127 H 12/22/18 06:59 Respiratory Rate 20 12/22/18 06:00 Blood Pressure 100/67 12/22/18 06:00 O2 Sat by Pulse Oximetry (%) 97 12/21/18 23:47 Constitutional: Yes: Calm Eyes: No: Sclera Icterus Cardiovascular: Yes: Tachycardia (regular rhythm) Respiratory: Yes: CTA Bilaterally Gastrointestinal Inspection: Yes: Distention (Mildly protuberant abdomen). No: Scars ...Auscultate: Yes: Normoactive Bowel Sounds ...Palpate: Yes: Tenderness (TTP RLQ) ...Percussion: Yes: Tympanitic (mild central tympany) Edema: No (No LE edema) Neurological: Yes: Alert Labs: CBC, BMP 12/22/18 05:30 12/22/18 05:30 INR, PTT INR 1.13 (0.83-1.09) H 12/21/18 09:35 Hepatic Panel Total Bilirubin 0.6 mg/dL (0.2-1) 12/22/18 05:30 AST 12 U/L (15-37) L 12/22/18 05:30 ALT 18 U/L (13-61) 12/22/18 05:30 Alkaline Phosphatase 62 U/L (45-117) 12/22/18 05:30 Albumin 3.0 g/dl (3.4-5.0) L 12/22/18 05:30 Problem List - Problems (1) Colon obstruction Assessment/Plan: Dilated loops of small bowel and proximal colon consistent with obstruction. Symptomatic as she had persistent feculent vomiting this morning. NGT adjusted and tethered to nose at 50cm oz with improved drainage. Advise: NPO NGT decompression Surgical evaluation. D/W Dr. Navarro IV hydration and monitoring of lytes per primary team Heart rate control Discussed the plan with Ms. Peguero's HCP Shantell Cruz. She was unaware of Ms. Peguero's admission Code(s): K56.609 - UNSP INTESTNL OBST, UNSP TO PARTIAL VERSUS COMPLETE OBST
--- NOTE | 2018-12-22 11:31 | CON.CARD ---
Cardiology Consult (text) - Consultation Consultation Note: cc: sent [place] for n/v hpi: 83 f hx dementia, afib/flutter, gerd, htn, tia, sent from [place] for n/v. Found to have sbo. Pt has dementia so hx questionable. Pt reports no sx. No cp, sob, palps, dizzy, loc, pnd, orthopnea, le edema. pmh: per hpi psh: NC social: no tob fam: no premature cad ros: per hpi; no fever, rash, cough, nasal congestion, WALL, vision changes muscle pains dysuria meds: Current Medications Generic Name Dose Route Start Last Admin Trade Name Freq PRN Reason Stop Dose Admin Acetaminophen 1,000 mg 12/21/18 21:32 Ofirmev Injection - IVPB Q6H PRN PAIN LEVEL 4 - 6 Fluticasone Propionate 2 spray 12/22/18 10:00 Flonase - NS DAILY OBDULIO Sodium Chloride 1,000 mls @ 100 mls/hr 12/21/18 21:30 12/21/18 22:47 Normal Saline - IV 100 mls/hr ASDIR OBDULIO Administration Metoprolol Tartrate 5 mg 12/21/18 19:30 12/22/18 06:59 Lopressor Injection - IVPUSH 5 mg Q4H-IV OBDULIO Administration Ondansetron HCl 4 mg 12/21/18 23:40 Zofran Injection IVPUSH Q6H PRN NAUSEA Pantoprazole Sodium 40 mg 12/21/18 19:15 12/21/18 20:24 Protonix Iv IVPUSH 40 mg DAILY OBDULIO Administration pe: Vital Signs Period Temp Pulse Resp BP Sys/Germain Pulse Ox Last 24 Hr 97.4 F-98.7 F 122-129 16-20 90-136/63-77 95-97 nad, no jvd irreg s1s2 no mrg cta bl nl eff awake, alert, confused pos dp pt no jaundice diaphoresis no le e/c/c abd nt nd pos bs Laboratory Last Values WBC 11.4 K/mm3 (4.0-10.0) H 12/22/18 05:30 RBC 5.21 M/mm3 (3.60-5.2) H 12/22/18 05:30 Hgb 12.7 GM/dL (10.7-15.3) 12/22/18 05:30 Hct 39.6 % (32.4-45.2) 12/22/18 05:30 MCV 76.0 fl (80-96) L 12/22/18 05:30 MCH 24.3 pg (25.7-33.7) L 12/22/18 05:30 MCHC 32.0 g/dl (32.0-36.0) 12/22/18 05:30 RDW 19.3 % (11.6-15.6) H 12/22/18 05:30 Plt Count 289 K/MM3 (134-434) 12/22/18 05:30 MPV 9.6 fl (7.5-11.1) 12/22/18 05:30 Absolute Neuts (auto) 8.7 K/mm3 (1.5-8.0) H 12/22/18 05:30 Neutrophils % 76.2 % (42.8-82.8) 12/22/18 05:30 Lymphocytes % 16.8 % (8-40) 12/22/18 05:30 Monocytes % 6.6 % (3.8-10.2) 12/22/18 05:30 Eosinophils % 0.1 % (0-4.5) 12/22/18 05:30 Basophils % 0.3 % (0-2.0) 12/22/18 05:30 Nucleated RBC % 0 % (0-0) 12/22/18 05:30 PT with INR 13.40 SEC (9.7-13.0) H 12/21/18 09:35 INR 1.13 (0.83-1.09) H 12/21/18 09:35 Sodium 140 mmol/L (136-145) 12/22/18 05:30 Potassium 3.9 mmol/L (3.5-5.1) 12/22/18 05:30 Chloride 107 mmol/L (98-107) 12/22/18 05:30 Carbon Dioxide 25 mmol/L (21-32) 12/22/18 05:30 Anion Gap 8 MMOL/L (8-16) 12/22/18 05:30 BUN 18 mg/dL (7-18) 12/22/18 05:30 Creatinine 1.0 mg/dL (0.55-1.3) 12/22/18 05:30 Creat Clearance w eGFR 52.69 (>60) 12/22/18 05:30 Random Glucose 115 mg/dL (74-106) H 12/22/18 05:30 Hemoglobin A1c % 5.6 % (4.2-6.3) 12/22/18 05:30 Lactic Acid 1.7 mmol/L (0.4-2.0) 12/22/18 00:00 Calcium 8.6 mg/dL (8.5-10.1) 12/22/18 05:30 Phosphorus 4.9 mg/dL (2.5-4.9) 12/22/18 05:30 Magnesium 2.1 mg/dL (1.8-2.4) 12/22/18 05:30 Total Bilirubin 0.6 mg/dL (0.2-1) 12/22/18 05:30 AST 12 U/L (15-37) L 12/22/18 05:30 ALT 18 U/L (13-61) 12/22/18 05:30 Alkaline Phosphatase 62 U/L (45-117) 12/22/18 05:30 Creatine Kinase 26 U/L (26-192) 12/21/18 08:49 Troponin I 0.02 ng/ml (0.00-0.05) 12/21/18 08:49 Total Protein 5.9 g/dl (6.4-8.2) L 12/22/18 05:30 Albumin 3.0 g/dl (3.4-5.0) L 12/22/18 05:30 Lipase 98 U/L (73-393) 12/21/18 08:49 Urine Color Fawn 12/22/18 01:25 Urine Appearance Cloudy 12/22/18 01:25 Urine pH 5.0 (5.0-8.0) 12/22/18 01:25 Ur Specific [place] 1.028 (1.010-1.035) 12/22/18 01:25 Urine Protein 2+ (NEGATIVE) H 12/22/18 01:25 Urine Glucose (UA) Negative (NEGATIVE) 12/22/18 01:25 Urine Ketones Trace (NEGATIVE) H 12/22/18 01:25 Urine Blood Negative (NEGATIVE) 12/22/18 01:25 Urine Nitrite Negative (NEGATIVE) 12/22/18 01:25 Urine Bilirubin 4.0 (<2.0 mg/dL) 12/22/18 01:25 Urine Urobilinogen Negative mg/dL (0.2-1.0) 12/22/18 01:25 Ur Leukocyte Esterase Trace (NEGATIVE) 12/22/18 01:25 Urine WBC (Auto) 6 /hpf (3-5) 12/22/18 01:25 Urine RBC (Auto) 1 /hpf (0-3) 12/22/18 01:25 Ur Epithelial Cells Few /HPF (FEW) 12/22/18 01:25 Urine Bacteria Rare /hpf (NONE SEEN) 12/22/18 01:25 Hyaline Casts 39 /lpf 12/22/18 01:25 Urine Mucus Many 12/22/18 01:25 ecg: aflutter with 2:1 avb, vr 127, no ischemic changes echo 07/2015: nl lv/rv, no sig valve path tele: aflutter, vr in 100s-120s echo 07/2015: nl lv/rv, no sig valve path a/p: 83 f hx dementia, afib/flutter, gerd, htn, tia, sent from [place] for coffee ground emesis. aflutter: - was on diltiazem 60 mg QID and propranolol 120 mg BID but now npo with sbo. Can give iv dilt prn until taking pills. Monitor on tele. - eliquis on hold for now in case needs OR for sbo htn: -monitor off meds while npo GIB: -recent admit for GIB, hgb stable here -plans per GI -Remains stable from CV perspective, no cardiac contraindications to egd/foc - prior plan was to be done as outpatient sbo: -plans per GI/surgery
[2018-12-22] MEDS: FLUTICASONE PROP 0.05% 16 GM NASAL SPRAY NS SCH (12:18)
[2018-12-22] MEDS: ACETAMINOPHEN 1000 MG/100 ML VIAL (NON FORMULARY) IVPB PRN (12:30)
[2018-12-22] MEDS: PANTOPRAZOLE SODIUM 40 MG VIAL IVPUSH SCH (12:38)
--- NOTE | 2018-12-22 12:56 | CONSULT ---
Consult Consult Specialty:: General Surgery Reason for Consultation:: LBO - History of Present Illness Chief Complaint: vomiting History of Present Illness: 83 yo female PMH reflux, esophagitis, dementia, hallucinations, ataxia, HTN, benign neoplasm of cerebral meninges, who presents to the emergency department via EMS from [facility] due to nausea and vomiting that started today. She was evaluated in the ED and was noted to be with afib with RVR . Patient is a poor historian and confused at baseline. She was mostly recently at [facility] between 12/13/2018 and 12/20/2018 for vomitus with coffee ground emesis. She is s/ p EGD which was negative. A colonoscopy was not done secondary to electroyte imbalance and persistent tachycardia. She was discharged and recommended to follow up with GI outpatient for a colonscopy. On last admission, she did not have any nausea or vomiting and tolerated her diet. She had a BM on 12/19/2018 during her hospital stay. We were called to assess. 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: Dementia (mild), Other (?meningioma) Cardio/Vascular: Yes: HTN Gastrointestinal: Yes: GERD ...: No - Alcohol/Substance Use Hx Alcohol Use: No History of Substance Use: reports: None - Smoking History Smoking history: Former smoker Have you smoked in the past 12 months: No - Social History Usual Living Arrangement: Care Home ADL: Support Services [facility] of : [facility] History of Recent Travel: No Home Medications - Allergies Allergies/Adverse Reactions: Allergies Allergy/AdvReac Type Severity Reaction Status Date / Time No Known Allergies Allergy Verified 12/21/18 08:50 - Home Medications Home Medications: Ambulatory Orders Donepezil HCl [Aricept] 10 mg PO HS 07/23/15 Apixaban [Eliquis -] 5 mg PO BID #60 tablet 07/30/15 Fluticasone Prop 0.05% Nasal [Flonase -] 2 spray NS DAILY #1 bottle 07/30/15 Ferrous Gluconate [Iron] 240 mg PO DAILY 12/13/18 Loratadine [Claritin -] 10 mg PO DAILY 12/13/18 Mirtazapine [Remeron -] 15 mg PO HS 12/13/18 Propranolol HCl [Inderal LA] 120 mg PO BID 12/13/18 Sennosides/Docusate Sodium [Senokot-S Tablet] 2 each PO HS 12/13/18 Diltiazem [Cardizem -] 60 mg PO Q6HPO tablet 12/20/18 propRANOLol HCL [Inderal LA -] 120 mg PO BID capsule.er 12/20/18 Family Disease History - Family Disease History Other Family History: No family history of colon cancer Review of Systems - Review of Systems Constitutional: denies: Chills, Fever Eyes: denies: Blind Spots, Photophobia HENT: denies: Difficult Swallowing, Throat Pain, Toothache Neck: denies: Decreased ROM, Tenderness Cardiovascular: denies: Chest Pain, Palpitations Respiratory: denies: Cough, SOB Gastrointestinal: reports: Abdominal Pain, Constipation. denies: Dysphagia, Nausea Genitourinary: denies: Discharge, Dysuria, Urgency Breasts: reports: No Symptoms Reported. denies: Pain Musculoskeletal: denies: Back Pain, Crepitus Integumentary: denies: Blister, Eczema, Lesions, Lump, Rash Neurological: denies: Seizure, Syncope Endocrine: denies: Unexplained Weight Gain, Unexplained Weight Loss Hematology/Lymphatic: denies: Easily Bruised, Excessive Bleeding Psychiatric: denies: Anxiety, Depression Physical Exam Vital Signs: Vital Signs Temperature 97.4 F L 12/22/18 06:00 Pulse Rate 127 H 12/22/18 06:59 Respiratory Rate 20 12/22/18 06:00 Blood Pressure 100/67 12/22/18 06:00 O2 Sat by Pulse Oximetry (%) 97 12/21/18 23:47 Vital Signs Period Temp Pulse Resp BP Sys/Germain Pulse Ox Last 24 Hr 97.5 F-98.5 F 90-135 12-23 55-136/34-94 97-100 Intake & Output 12/22/18 12/23/18 12/23/18 23:59 07:59 15:59 Intake Total 400 3249 Output Total 200 350 Balance 200 2899 Intake: IV 400 3249 Levophed - 8,000 Mcg In 207 D5w - 492 ml @ 5 MCG/MIN 18.75 mls/hr IV TITR OBDULIO Rx#:[id number] Normal Saline - 1,000 ml 3000 @ 100 mls/hr IV ASDIR OBDULIO Rx#:[id number] Pitressin - 50 Units In 42 Normal Saline - 97.5 ml @ 2 UNITS/HR 4 mls/hr IVPB ASDIR OBDULIO Rx#: [id number] Oral 0 Output: Gastric Drainage 250 Urine 200 100 Andre 100 Other: Voiding Method Indwelling Catheter Indwelling Catheter Bowel Movement No Constitutional: Yes: Well Nourished, No Distress, Calm Eyes: Yes: Conjunctiva Clear, EOM Intact HENT: Yes: Atraumatic, Normocephalic Neck: Yes: Supple, Trachea Midline Cardiovascular: Yes: Regular Rate and Rhythm, S1, S2 Respiratory: Yes: Regular, CTA Bilaterally Gastrointestinal: Yes: Normal Bowel Sounds, Soft, Palpable Mass, Tenderness (RLQ , R flank). No: Pulsatile Mass ...Rectal Exam: Yes: Sphincter Tone Normal. No: Hemorrhoids/External, Mass Renal/: No: CVA Tenderness - Left, CVA Tenderness - Right Breast(s): No: Gynecomastia, Nipple Inversion Musculoskeletal: No: Muscle Pain, Muscle Weakness Extremities: No: Cool, Cyanosis Edema: No Peripheral Pulses WNL: Yes Integumentary: No: Jaundice, Pressure Ulcer Neurological: Yes: Alert, Confusion. No: Oriented Psychiatric: Yes: Alert. No: Oriented Labs: CBC, BMP 12/22/18 05:30 12/22/18 05:30 Imaging - Results Cat Scan: Report Reviewed, Image Reviewed (Ascending colon mass/ transition with dialted cecum and decompressed colon distal) Problem List - Problems (1) Colon obstruction Assessment/Plan: 83yo [place] returned [place] the next morning after discharge with feculent emesis and an identified large bowel obstruction suspicious for malignancy. this may be a missed diagnosis from previous admission. Clinical picture is complicated by refractory afib, persistent HR 130, non responsive to medication and fluid. She is as resucscited as possible per cardiology. This was was discussed with her HCP Shantell who is a nurse. We will proceed immediately to OR. Urgent operative intervention for right hemicolectomy Discussed with patient risks, benefits and alternatives of aforementioned procedure, including but not limited to bleeding, infection, injury to adjacent structures, leak or injury, intraabdominal abscess, incisional hernia, need for further procedures, ; alternatives include antibiotics, delayed or no surgery - risks of this include failure of nonoperative therapy, perforation, sepsis, recurrence, . Patient desires to proceed with operation - will take to OR for above. Informed consent signed for same. Code(s): K56.609 - UNSP INTESTNL OBST, UNSP TO PARTIAL VERSUS COMPLETE OBST (2) Atrial fibrillation with RVR Code(s): I48.91 - UNSPECIFIED ATRIAL FIBRILLATION (3) Dementia Code(s): F03.90 - UNSPECIFIED DEMENTIA WITHOUT BEHAVIORAL DISTURBANCE (4) Esophagitis Code(s): K20.9 - ESOPHAGITIS, UNSPECIFIED (5) GERD (gastroesophageal reflux disease) Code(s): K21.9 - GASTRO-ESOPHAGEAL REFLUX DISEASE WITHOUT ESOPHAGITIS (6) Hypertension Code(s): I10 - ESSENTIAL (PRIMARY) HYPERTENSION Qualifiers: Hypertension type: essential hypertension Qualified Code(s): I10 - Essential (primary) hypertension
[2018-12-22] MEDS: dilTIAZem HCL 50 MG/10 ML - 10 ML VIAL IVPUSH PRN (13:26)
--- NOTE | 2018-12-22 14:21 | EKG ---
Test Reason : Blood Pressure : / mmHG Vent. Rate : 130 BPM Atrial Rate : 260 BPM P-R Int : 000 ms QRS Dur : 060 ms QT Int : 372 ms P-R-T Axes : 250 -07 267 degrees QTc Int : 547 ms ATRIAL FLUTTER WITH 2:1 A-V CONDUCTION LOW VOLTAGE QRS ABNORMAL ECG Confirmed by LIZZETH MATUTE MD ([id number]) on 12/22/2018 2:21:16 PM Referred By: Confirmed By:LIZZETH MATUTE MD
--- NOTE | 2018-12-22 14:30 | EKG ---
Test Reason : Blood Pressure : / mmHG Vent. Rate : 127 BPM Atrial Rate : 254 BPM P-R Int : 000 ms QRS Dur : 062 ms QT Int : 312 ms P-R-T Axes : 092 005 190 degrees QTc Int : 453 ms ATRIAL FLUTTER WITH 2:1 A-V CONDUCTION NONSPECIFIC ST AND T WAVE ABNORMALITY ABNORMAL ECG WHEN COMPARED WITH ECG OF 13-DEC-2018 20:19, T WAVE INVERSION NO LONGER EVIDENT IN INFERIOR LEADS NONSPECIFIC T WAVE ABNORMALITY NOW EVIDENT IN LATERAL LEADS Confirmed by LIZZETH MATUTE MD ([id number]) on 12/22/2018 2:29:59 PM Referred By: Confirmed By:LIZZETH MATUTE MD
[2018-12-22] MEDS ORDERED: PROPOFOL 20 ML ONE ×2 (15:02→18:25)
[2018-12-22] MEDS ORDERED: ETOMIDATE 20 MG/10 ML AMPUL IVPUSH ONE (15:03)
[2018-12-22] MEDS ORDERED: SUCCINYLCHOLINE CHLORIDE 200 MG/10 ML VIAL ONE (15:03)
[2018-12-22] MEDS ORDERED: PHENYLEPHRINE HCL 10 MG/1 ML SINGLE DOSE VIAL ONE ×2 (15:04)
[2018-12-22] MEDS ORDERED: ROCURONIUM BROMIDE 50 MG/5 ML VIAL ONE (15:04)
[2018-12-22] MEDS ORDERED: VASOPRESSIN 20 UNITS/ML VIAL IV ONE (15:06)
[2018-12-22] MEDS ORDERED: NOREPINEPHRINE BITARTRATE 4 MG/4 ML ML IV ONE ×2 (15:19→21:20)
[2018-12-22] MEDS ORDERED: SODIUM CHLORIDE 0.9% P/F 10 ML VIAL IJ ONE (15:21)
[2018-12-22] MEDS ORDERED: ePHEDrine SULFATE 50 MG/1 ML AMPULE ONE (15:21)
[2018-12-22] MEDS ORDERED: CEFOXITIN SODIUM 2 GM IVPB ONE (16:19)
[2018-12-22] MEDS ORDERED: cefOXitin SODIUM 1 GM VIAL (RESTRICTED TO ID) IVPB ONE (16:25)
[2018-12-22] MEDS ORDERED: DILTIAZEM INJECTION 125 MG in DEXTROSE 5%-WATER - 100 ML IVPB SCH (16:30)
--- NOTE | 2018-12-22 16:50 | PN ---
Physical Exam: SUBJECTIVE: Patient seen and examined at the bedside. confused at baseline. in no acute distress. OBJECTIVE: ngt to low intermittent suction abd xray with sbo Vital Signs Period Temp Pulse Resp BP Sys/Germain Pulse Ox Last 24 Hr 97.4 F-98.7 F 123-131 16-20 90-136/61-77 95-98 GENERAL: awake, alert, confused at baseline HEAD: Normal with no signs of trauma. EYES: Pupils equal, round and reactive to light, extraocular movements intact, sclera anicteric, conjunctiva clear. No lid lag. EARS, NOSE, THROAT: Ears normal, nares patent, oropharynx clear without exudates. Moist mucous membranes. NECK: Normal range of motion, supple without lymphadenopathy, JVD, or masses. LUNGS: Breath sounds equal, clear to auscultation bilaterally. No wheezes HEART: afib with RVR ABDOMEN: Soft, tender, distended, + hypoactive bowel sounds on lower quadrants MUSCULOSKELETAL: Normal range of motion at all joints. No bony deformities or tenderness. No CVA tenderness. UPPER EXTREMITIES: No peripheral edema. LOWER EXTREMITIES: No peripheral edema. NEUROLOGICAL: Normal speech. Normal gait. PSYCHIATRIC: Appropriate mood and affect. SKIN: Warm, dry, normal turgor, no rashes or lesions noted, normal capillary refill. Laboratory Results - last 24 hr 12/22/18 12/22/18 12/22/18 00:00 01:25 05:30 WBC 11.4 H RBC 5.21 H Hgb 12.7 Hct 39.6 MCV 76.0 L MCH 24.3 L MCHC 32.0 RDW 19.3 H Plt Count 289 MPV 9.6 Absolute Neuts (auto) 8.7 H Neutrophils % 76.2 Lymphocytes % 16.8 Monocytes % 6.6 Eosinophils % 0.1 Basophils % 0.3 Nucleated RBC % 0 Sodium Potassium Chloride Carbon Dioxide Anion Gap BUN Creatinine Creat Clearance w eGFR Random Glucose Hemoglobin A1c % Lactic Acid 1.7 Calcium Phosphorus Magnesium Total Bilirubin AST ALT Alkaline Phosphatase Total Protein Albumin Urine Color Fawn Urine Appearance Cloudy Urine pH 5.0 Ur Specific [place] 1.028 Urine Protein 2+ H Urine Glucose (UA) Negative Urine Ketones Trace H Urine Blood Negative Urine Nitrite Negative Urine Bilirubin 4.0 Urine Urobilinogen Negative Ur Leukocyte Esterase Trace Urine WBC (Auto) 6 Urine RBC (Auto) 1 Ur Epithelial Cells Few Urine Bacteria Rare Hyaline Casts 39 Urine Mucus Many 12/22/18 12/22/18 05:30 05:30 WBC RBC Hgb Hct MCV MCH MCHC RDW Plt Count MPV Absolute Neuts (auto) Neutrophils % Lymphocytes % Monocytes % Eosinophils % Basophils % Nucleated RBC % Sodium 140 Potassium 3.9 Chloride 107 Carbon Dioxide 25 Anion Gap 8 BUN 18 Creatinine 1.0 Creat Clearance w eGFR 52.69 Random Glucose 115 H Hemoglobin A1c % 5.6 Lactic Acid Calcium 8.6 Phosphorus 4.9 Magnesium 2.1 Total Bilirubin 0.6 AST 12 L ALT 18 Alkaline Phosphatase 62 Total Protein 5.9 L Albumin 3.0 L Urine Color Urine Appearance Urine pH Ur Specific [place] Urine Protein Urine Glucose (UA) Urine Ketones Urine Blood Urine Nitrite Urine Bilirubin Urine Urobilinogen Ur Leukocyte Esterase Urine WBC (Auto) Urine RBC (Auto) Ur Epithelial Cells Urine Bacteria Hyaline Casts Urine Mucus Active Medications Generic Name Dose Route Start Last Admin Trade Name Freq PRN Reason Stop Dose Admin Acetaminophen 1,000 mg 12/21/18 21:32 12/22/18 12:30 Ofirmev Injection - IVPB 1,000 mg Q6H PRN Administration PAIN LEVEL 4 - 6 Diltiazem HCl 10 mg 12/22/18 11:37 12/22/18 13:26 Cardizem Injection - IVPUSH 10 mg Q4H PRN Administration TACHYCARDIA Fluticasone Propionate 2 spray 12/22/18 10:00 12/22/18 12:18 Flonase - NS 2 spray DAILY OBDULIO Administration Sodium Chloride 1,000 mls @ 100 mls/hr 12/21/18 21:30 12/21/18 22:47 Normal Saline - IV 100 mls/hr ASDIR OBDULIO Administration Diltiazem HCl 125 mg/ Dextrose 125 mls @ 5 mls/hr 12/22/18 16:30 IVPB TITR OBDULIO Protocol 5 MG/HR Metoprolol Tartrate 5 mg 12/21/18 19:30 12/22/18 14:58 Lopressor Injection - IVPUSH 5 mg Q4H-IV OBDULIO Administration Ondansetron HCl 4 mg 12/21/18 23:40 12/22/18 12:39 Zofran Injection IVPUSH 4 mg Q6H PRN Administration NAUSEA Pantoprazole Sodium 40 mg 12/21/18 19:15 12/22/18 12:38 Protonix Iv IVPUSH 40 mg DAILY OBDULIO Administration ASSESSMENT/PLAN: Patient is an 83 year old female with past medical history of reflux, esophagitis, dementia, hallucinations, ataxia, HTN, benign neoplasm of cerebral meninges, who [facility] to [facility] and vomiting that started today. She was evaluated in the ED and was noted to be with afib with RVR . Patient is a poor historian and confused at baseline. She was mostly recently at [facility] between 12/13/2018 and 12/20/2018 for vomitus with coffee ground emesis. She is s/p EGD which was negative. A colonoscopy was not done secondary to electroyte imbalance and persistent tachycardia. She was discharged and recommended to follow up with GI outpatient for a colonscopy. On last admission, she did not have any nausea or vomiting and tolerated her diet. She had a BM on 12/18/2018 during her hospital stay. Imaging: Abdominal CT w/o contrast 12/21/18 shows diffuse to moderate marked dilatation of the small bowel including the terminal ileum with significant dilatation of the cecum and proximal ascending colon up to a point of transition seen in the proximal/mid ascending colon where there is suggestion of wall thickening and collapse of the rest of the colon consistent with obstruction. EKG: Afib, Aflutter with 2:1 AV conduction, HR 120s tele: afib rvr 125 GI: Acute bowel obstructions seen on Abd CT Keep strictly NPO Abdominal xray consistent with SBO NGT to low intermittent suction with green purulent drainage Start IVF hydration Patient for exp lap today for SBO advance diet per surgery Cardiac Uncontolled afib with RVR Hold PO meds and start on scheduled metoprolol IV Cardizem pushes prn if remains tachycardic Cardiology consulted and following Hypertension. Monitor bp q 4 hours fen IVF NPO Protonix prophy physical therapy SCDs and CHLOE stockings hold eliquis Code status needs clarification with [place] Visit type - Emergency Visit Emergency Visit: Yes ED Registration Date: 12/22/18 Care time: The patient presented to the Emergency Department on the above date and was hospitalized for further evaluation of their emergent condition. - New Patient This patient is new to me today: No - Critical Care Critical Care patient: No - Discharge Referral Referred to [facility] No
[2018-12-22] MEDS ORDERED: DESFLURANE GAS 240 ML BOTTLE IH ONE ×2 (16:53→19:10)
[2018-12-22] MEDS ORDERED: ESMOLOL HCL 100,000 MCG/10 ML VIAL ONE (17:13)
[2018-12-22] MEDS ORDERED: CALCIUM CHLORIDE 1 GM/10 ML *DISP.SYRIN ONE (17:34)
[2018-12-22] MEDS ORDERED: METOPROLOL TARTRATE 5 MG/5 ML VIAL ONE (18:02)
[2018-12-22] MEDS ORDERED: fentaNYL CITRATE 250 MCG/5 ML VIAL ONE ×3 (18:17→19:25)
[2018-12-22] MEDS ORDERED: PROPOFOL 1,000,000 MCG/100 ML VIAL ONE (18:54)
[2018-12-22] MEDS ORDERED: MIDAZOLAM 0 MG/0 ML MG IVPB ONE (19:24)
[2018-12-22] MEDS ORDERED: HYDROmorphone HCl 2 MG/ML VIAL ONE (20:16)
[2018-12-22] MEDS ORDERED: HYDROmorphone HCl 2 MG/ML VIAL IVPUSH ONE ×2 (20:20→20:30)
[2018-12-22] MEDS: SODIUM CHLORIDE 1,000 ML IV SCH (20:50)
[2018-12-22] MEDS ORDERED: NOREPINEPHRINE BITARTRATE 8,000 MCG in DEXTROSE 5%-WATER - 492 ML IV SCH (23:45)
[2018-12-23] MEDS ORDERED: niCARdipine HCL 25 MG/10 ML AMPUL IVPB ONE (00:38)
[2018-12-23] MEDS ORDERED: NICARDIPINE 25 MG in DEXTROSE 5%-WATER - 240 ML IVPB SCH (01:30)
[2018-12-23] MEDS ORDERED: VASOPRESSIN 50 UNITS in SODIUM CHLORIDE 97.5 ML IVPB SCH ×2 (01:30→02:30)
[2018-12-23] MEDS ORDERED: VASOPRESSIN 20 UNITS/ML VIAL IV ONE (01:37)
[2018-12-23] MEDS: METOPROLOL TARTRATE 5 MG/5 ML VIAL IVPUSH SCH ×4 (02:01→18:00)
[2018-12-23] MEDS: NOREPINEPHRINE BITARTRATE 8,000 MCG in DEXTROSE 5%-WATER - 492 ML IV SCH (04:16)
[2018-12-23] MEDS: CEFAZOLIN 500 MG in DEXTROSE 5%-WATER - 50 ML IVPB SCH ×2 (04:41→09:57)
[2018-12-23] MEDS: SODIUM CHLORIDE 1,000 ML IV SCH (05:32)
[2018-12-23] MEDS ORDERED: LACTATED RINGERS SOLUTION 1000 ML INFUS.BAG IV ONE (08:56)
--- NOTE | 2018-12-23 09:15 | PN ---
Physical Exam: SUBJECTIVE: Patient seen and examined in the ICU s/p post abdominal surgery denies pain, in no acute distress. sleepy but arousable. OBJECTIVE: 24 hr s/p exp lap for SBP. POD #1 NGT to low intermittent suction surgical dressing intact hypotensive, now on norepi overnight On prophylactic antibiotics Patient has a dnr/dni paper work scanned into [employer]. I called her listed HPC/power of personal injury attorney Shantell Cruz [phone] who confirms that she is the power of attoney and HCP. Asked her to bring us the paperworks so that we can have it on file. I attempted to call Mihai on [place] without success. will add dnr/dni to EMAR Vital Signs Period Temp Pulse Resp BP Sys/Germain Pulse Ox Last 24 Hr 97.7 F-98.5 F 90-133 12-23 55-136/34-94 97-100 GENERAL: The patient is awake, answering questions. HEAD: Normal with no signs of trauma. EYES: PERRL, extraocular movements intact, sclera anicteric, conjunctiva clear. No ptosis. ENT: Ears normal, nares patent, oropharynx clear without exudates, moist mucous membranes. NECK: Trachea midline, full range of motion, supple. LUNGS: Breath sounds equal, diminished but clear HEART:irregular 130s ABDOMEN: Soft, nontender, nondistended, no bowel sounds rebound, no hepatosplenomegaly, no masses. EXTREMITIES: 2+ pulses, warm, well-perfused, no edema. NEUROLOGICAL: Normal speech, gait not observed. PSYCH: Normal mood, normal affect. Laboratory Results - last 24 hr 12/22/18 12/22/18 12/23/18 05:30 16:30 00:30 Hemoglobin A1c % 5.6 Lactic Acid 2.0 Blood Type O POSITIVE Antibody Screen Negative Active Medications Generic Name Dose Route Start Last Admin Trade Name Freq PRN Reason Stop Dose Admin Acetaminophen 1,000 mg 12/21/18 21:32 12/22/18 12:30 Ofirmev Injection - IVPB 1,000 mg Q6H PRN Administration PAIN LEVEL 4 - 6 Diltiazem HCl 10 mg 12/22/18 11:37 12/22/18 13:26 Cardizem Injection - IVPUSH 10 mg Q4H PRN Administration TACHYCARDIA Fluticasone Propionate 2 spray 12/22/18 10:00 12/22/18 12:18 Flonase - NS 2 spray DAILY OBDULIO Administration Sodium Chloride 1,000 mls @ 100 mls/hr 12/21/18 21:30 12/23/18 05:32 Normal Saline - IV 100 mls/hr ASDIR OBDULIO Administration Diltiazem HCl 125 mg/ Dextrose 125 mls @ 5 mls/hr 12/22/18 16:30 12/23/18 02: 01 IVPB Not Given TITR OBDULIO Protocol 5 MG/HR Vasopressin 50 units/ Sodium 100 mls @ 4 mls/hr 12/23/18 02:30 12/23/18 02:44 Chloride IVPB 2 units/hr ASDIR OBDULIO 4 mls/hr Administration Protocol 2 UNITS/HR Norepinephrine Bitartrate 8, 500 mls @ 18.75 mls/hr 12/22/18 23:45 12/23/18 06:48 000 mcg/ Dextrose IV 11 mcg/min TITR OBDULIO 41.25 mls/hr Titration Protocol 5 MCG/MIN Cefazolin Sodium 500 mg/ 50 mls @ 50 mls/30 min 12/23/18 03:00 12/23/18 04:41 Dextrose IVPB 50 mls/30 min Q8H-IV OBDULIO Administration Lactated Ringer's 1,000 ml 12/23/18 08:56 Lactated Ringers Solution IV 12/23/18 08:57 ONCE ONE Metoprolol Tartrate 5 mg 12/21/18 19:30 12/23/18 02:01 Lopressor Injection - IVPUSH Not Given Q4H-IV OBDULIO Ondansetron HCl 4 mg 12/21/18 23:40 12/22/18 12:39 Zofran Injection IVPUSH 4 mg Q6H PRN Administration NAUSEA Pantoprazole Sodium 40 mg 12/21/18 19:15 12/22/18 12:38 Protonix Iv IVPUSH 40 mg DAILY OBDULIO Administration ASSESSMENT/PLAN: Patient is an 83 year old female with past medical history of reflux, esophagitis, dementia, hallucinations, ataxia, HTN, benign neoplasm of cerebral meninges, who presents to the emergency department via EMS from group home due to nausea and vomiting. She was evaluated in the ED and was noted to be with afib with RVR . Patient is a poor historian and confused at baseline. She was mostly recently at [facility] between 12/13/2018 and 12/20/2018 for vomitus with coffee ground emesis. She is s/p EGD which was negative. A colonoscopy was not done secondary to electrolyte imbalance and persistent tachycardia. She was discharged and recommended to follow up with GI outpatient for a colonscopy. Imaging: Abdominal CT w/o contrast 12/21/18 shows diffuse to moderate marked dilatation of the small bowel including the terminal ileum with significant dilatation of the cecum and proximal ascending colon up to a point of transition seen in the proximal/mid ascending colon where there is suggestion of wall thickening and collapse of the rest of the colon consistent with obstruction. EKG: Afib, Aflutter with 2:1 AV conduction, HR 120s tele: afib rvr 136s GI: Acute bowel obstructions seen on Abd CT Abd xray with SBO s/p exp lap for SBO Post Op Care: incentive spirometer when able to perform IVF hydration advance diet per surgery monitor pain post op antibiotics SCDs ICU Care ID: Septic shock on pressor emperic antibiotics care per icu team do not inubate Cardiac Uncontolled afib with RVR on scheduled metoprolol and cardizem drip Hypertension, now hypotensive On Noreepinephrine ICU monitoring post op fen IVF NPO Protonix prophy physical therapy SCDs and CHLOE stockings hold eliquis dnr/dni Visit type - Emergency Visit Emergency Visit: Yes ED Registration Date: 12/22/18 Care time: The patient presented to the Emergency Department on the above date and was hospitalized for further evaluation of their emergent condition. - New Patient This patient is new to me today: No - Critical Care Critical Care patient: Yes Total Critical Care Time (in minutes): 45 Critical Care Statement: The care of this patient involved high complexity decision making to prevent further life threatening deterioration of the patient 's condition and/or to evaluate & treat vital organ system(s) failure or risk of failure.
[2018-12-23 09:23] LABS: ARTERIAL BLOOD GAS pH 7.23 (7.35-7.45)
[2018-12-23 09:24] LABS: ARTERIAL BLOOD GAS PCO2 43.6 mmHg (35-45)
[2018-12-23 09:25] LABS: ARTERIAL BLD GAS O2 SATURATION 98.9 % (90-98.9)
[2018-12-23 09:43] LABS: BASO % 0.2 % (0-2.0); HEMATOCRIT 38.1 % (32.4-45.2); HEMOGLOBIN 11.7 GM/dL (10.7-15.3); LYMPH % 7.1 % (8-40); MCH 23.6 pg (25.7-33.7); MCHC 30.7 g/dl (32.0-36.0); MEAN CELL VOLUME 76.8 fl (80-96); MEAN PLT VOLUME 9.3 fl (7.5-11.1); MONO % 5.7 % (3.8-10.2); PLATELET COUNT 225 K/MM3 (134-434); RBC 4.96 M/mm3 (3.60-5.2); RDW 19.6 % (11.6-15.6)
[2018-12-23 10:05] LABS: ALK PHOS 49 U/L (45-117); ANION GAP 10 MMOL/L (8-16); BILIRUBIN,TOTAL 0.8 mg/dL (0.2-1); BLOOD UREA NITROGEN 21 mg/dL (7-18); CALCIUM 7.6 mg/dL (8.5-10.1); CHLORIDE 116 mmol/L (98-107); CO2 19 mmol/L (21-32); GLUCOSE,RANDOM 160 mg/dL (74-106); MAGNESIUM 1.5 mg/dL (1.8-2.4); POTASSIUM 3.8 mmol/L (3.5-5.1); SGOT/AST 16 U/L (15-37); SGPT/ALT 15 U/L (13-61); SODIUM 145 mmol/L (136-145); TOT PROT 4.1 g/dl (6.4-8.2)
[2018-12-23] MEDS ORDERED: AMIODARONE IN DEXTROSE,ISO-OSM 360 MG/200 ML BAG IVPB ONE (10:07)
[2018-12-23] MEDS ORDERED: AMIODARONE IN DEXTROSE,ISO-OSM 150 MG/100 ML BAG IVPB ONE (10:07)
--- NOTE | 2018-12-23 10:19 | PN ---
Progress Note (short form) - Note Progress Note: Pulm/ccm Seen and examined in ICU 24HR: -S/p Exlap with Dr Navarro -extubated in PACU -required pressors--> ICU admission overnight in setting of afib/flutter RVR and cardene gtt -seen by Cards this am--> change to Amio -CVP low at 3, not on o2, getting more volume now -wbc up but afebrile -DNR/DNI confirmed by family Vital Signs Temp 97.5 F L 12/23/18 10:00 Pulse 135 H 12/23/18 10:00 Resp 16 12/23/18 10:00 BP 106/57 L 12/23/18 10:00 Pulse Ox 100 12/23/18 00:03 Intake & Output 12/22/18 12/22/18 12/23/18 11:59 23:59 11:59 Intake Total 1100 1800 3249 Output Total 200 350 Balance 1100 1600 2899 Intake: IV 1000 1800 3249 Levophed - 8,000 Mcg In 207 D5w - 492 ml @ 5 MCG/MIN 18.75 mls/hr IV TITR OBD[facility]IO Rx#:[id number] Normal Saline - 1,000 ml 1000 1400 3000 @ 100 mls/hr IV ASDIR [facility] Rx#:[id number] Pitressin - 50 Units In 42 Normal Saline - 97.5 ml @ 2 UNITS/HR 4 mls/hr IVPB ASDIR [facility] Rx#: [id number] IVPB 100 Oral 0 Output: Gastric Drainage 250 Urine 200 100 Andre 100 Other: Voiding Method Indwelling Catheter Indwelling Catheter Bowel Movement No Active Medications Acetaminophen (Ofirmev Injection -) 1,000 mg IVPB Q6H PRN PRN Reason: PAIN LEVEL 4 - 6 Last Admin: 12/22/18 12:30 Dose: 1,000 mg Diltiazem HCl (Cardizem Injection -) 10 mg IVPUSH Q4H PRN PRN Reason: TACHYCARDIA Last Admin: 12/22/18 13:26 Dose: 10 mg Fluticasone Propionate (Flonase -) 2 spray NS DAILY OBDULIO Last Admin: 12/22/18 12:18 Dose: 2 spray Sodium Chloride (Normal Saline -) 1,000 mls @ 100 mls/hr IV ASDIR [facility] Last Admin: 12/23/18 05:32 Dose: 100 mls/hr Vasopressin 50 units/ Sodium (Chloride) 100 mls @ 4 mls/hr IVPB ASDIR OBD[facility]; Protocol Last Titration: 12/23/18 09:59 Dose: 0 units/hr, 0 mls/hr Norepinephrine Bitartrate 8, (000 mcg/ Dextrose) 500 mls @ 18.75 mls/hr IV TITR OBDULIO; Protocol Last Titration: 12/23/18 09:00 Dose: 8 mcg/min, 30 mls/hr Cefazolin Sodium 500 mg/ (Dextrose) 50 mls @ 50 mls/30 min IVPB Q8H-IV OBDULIO Last Admin: 12/23/18 09:57 Dose: 50 mls/30 min Amiodarone HCl/Dextrose (Nexterone 360 Mg/200 Ml Bag) 360 mg in 200 mls @ 16.667 mls/hr IVPB ASDIR [facility]; Protocol Amiodarone HCl/Dextrose (Nexterone 360 Mg/200 Ml Bag) 360 mg in 200 mls @ 33.333 mls/hr IVPB ONCE ONE; Protocol Stop: 12/23/18 16:06 Metoprolol Tartrate (Lopressor Injection -) 5 mg IVPUSH Q4H-IV OBDULIO Last Admin: 12/23/18 02:01 Dose: Not Given Ondansetron HCl (Zofran Injection) 4 mg IVPUSH Q6H PRN PRN Reason: NAUSEA Last Admin: 12/22/18 12:39 Dose: 4 mg Pantoprazole Sodium (Protonix Iv) 40 mg IVPUSH DAILY OBDULIO Last Admin: 12/22/18 12:38 Dose: 40 mg CBCD WBC 25.0 K/mm3 (4.0-10.0) H 12/23/18 09:01 RBC 4.96 M/mm3 (3.60-5.2) 12/23/18 09:01 Hgb 11.7 GM/dL (10.7-15.3) 12/23/18 09:01 Hct 38.1 % (32.4-45.2) 12/23/18 09:01 MCV 76.8 fl (80-96) L 12/23/18 09:01 MCHC 30.7 g/dl (32.0-36.0) L 12/23/18 09:01 RDW 19.6 % (11.6-15.6) H 12/23/18 09:01 Plt Count 225 K/MM3 (134-434) D 12/23/18 09:01 MPV 9.3 fl (7.5-11.1) 12/23/18 09:01 CMP Sodium 145 mmol/L (136-145) 12/23/18 06:00 Potassium 3.8 mmol/L (3.5-5.1) 12/23/18 06:00 Chloride 116 mmol/L (98-107) H 12/23/18 06:00 Carbon Dioxide 19 mmol/L (21-32) L 12/23/18 06:00 Anion Gap 10 MMOL/L (8-16) 12/23/18 06:00 BUN 21 mg/dL (7-18) H 12/23/18 06:00 Creatinine 1.0 mg/dL (0.55-1.3) 12/23/18 06:00 Creat Clearance w eGFR 52.69 (>60) 12/23/18 06:00 Random Glucose 160 mg/dL (74-106) H 12/23/18 06:00 Calcium 7.6 mg/dL (8.5-10.1) L 12/23/18 06:00 Total Bilirubin 0.8 mg/dL (0.2-1) 12/23/18 06:00 AST 16 U/L (15-37) 12/23/18 06:00 ALT 15 U/L (13-61) 12/23/18 06:00 Alkaline Phosphatase 49 U/L (45-117) 12/23/18 06:00 Total Protein 4.1 g/dl (6.4-8.2) L 12/23/18 06:00 Albumin 2.0 g/dl (3.4-5.0) L 12/23/18 06:00 CARDIAC ENZYMES Creatine Kinase 26 U/L (26-192) 12/21/18 08:49 Troponin I 0.02 ng/ml (0.00-0.05) 12/21/18 08:49 PE: Gen; awake, mildly confused, no distress HEENT: supple, PERRL, TLC CDI PULM: clear anterior CV: tachy, unable to appreciate MRG ABD: midline incision CDI EXT: no edema NEURO: non focal, mildly confused as to events A/P 83 y/o woman with LBO s/p exlap with Dr Navarro now with post op shock/sepsis and afib/flutter with RVR requiring Amio gtt -cont IV abx -continue volume resusc and wean vasopressors as tolerated -cvp 8-12, watch for volume overload -rate control with amio as per cardiology, recs appreciated -NPO until BS/flatus -scd and PPI for jamison Fitzgerald ACNP [id number]
--- NOTE | 2018-12-23 11:02 | PN ---
Progress Note (short form) - Note Progress Note: Anesthesiology: POD #1 - s/p right hemicolectomy under general anesthesia. Pt. awake and alert, responding appropriately. Has tolerated extubation post-op with O2 sat 96% on room air. Vasopressin has been titrated off. Pt. remains on levophed, which has been titrated lower, for BP support. No apparent anesthetic complications noted. Continue current management.
[2018-12-23] MEDS: PANTOPRAZOLE SODIUM 40 MG VIAL IVPUSH SCH (11:17)
[2018-12-23] MEDS ORDERED: MAGNESIUM SULF 50% (8.12 MEQ/2 ML-1 GM VIAL) IVPB ONE (11:24)
[2018-12-23] MEDS ORDERED: MAGNESIUM SULFATE IN WATER 2 GM/50 ML IVPB IVPB ONE (11:40)
--- NOTE | 2018-12-23 12:03 | PN ---
Progress Note (short form) - Note Progress Note: s: extubated this AM, remains on pressors. no cp sob palps dizzy o: Vital Signs Temp 97.5 F L 12/23/18 10:00 Pulse 135 H 12/23/18 10:00 Resp 16 12/23/18 10:00 BP 106/57 L 12/23/18 10:00 Pulse Ox 100 12/23/18 09:00 Intake & Output 12/22/18 12/22/18 12/23/18 11:59 23:59 11:59 Intake Total 1100 1800 3249 Output Total 200 350 Balance 1100 1600 2899 Intake: IV 1000 1800 3249 Levophed - 8,000 Mcg In 207 D5w - 492 ml @ 5 MCG/MIN 18.75 mls/hr IV TITR OBDULIO Rx#:[id number] Normal Saline - 1,000 ml 1000 1400 3000 @ 100 mls/hr IV ASDIR [facility] Rx#:[id number] Pitressin - 50 Units In 42 Normal Saline - 97.5 ml @ 2 UNITS/HR 4 mls/hr IVPB ASDIR [facility] Rx#: [id number] IVPB 100 Oral 0 Output: Gastric Drainage 250 Urine 200 100 Andre 100 Other: Voiding Method Indwelling Catheter Indwelling Catheter Bowel Movement No nad, no jvd irreg s1s2 no mrg cta bl nl eff awake, alert pos dp pt no jaundice diaphoresis no le e/c/c abd nt nd pos bs Laboratory Last Values WBC 25.0 K/mm3 (4.0-10.0) H 12/23/18 09:01 RBC 4.96 M/mm3 (3.60-5.2) 12/23/18 09:01 Hgb 11.7 GM/dL (10.7-15.3) 12/23/18 09:01 Hct 38.1 % (32.4-45.2) 12/23/18 09:01 MCV 76.8 fl (80-96) L 12/23/18 09:01 MCH 23.6 pg (25.7-33.7) L 12/23/18 09:01 MCHC 30.7 g/dl (32.0-36.0) L 12/23/18 09:01 RDW 19.6 % (11.6-15.6) H 12/23/18 09:01 Plt Count 225 K/MM3 (134-434) D 12/23/18 09:01 MPV 9.3 fl (7.5-11.1) 12/23/18 09:01 Absolute Neuts (auto) 21.8 K/mm3 (1.5-8.0) H 12/23/18 09:01 Neutrophils % 87.0 % (42.8-82.8) H 12/23/18 09:01 Lymphocytes % 7.1 % (8-40) L D 12/23/18 09: Monocytes % 5.7 % (3.8-10.2) 12/23/18 09: Eosinophils % 0.0 % (0-4.5) D 12/23/18 09: Basophils % 0.2 % (0-2.0) 12/23/18 09: Nucleated RBC % 0 % (0-0) 12/23/18 09: PT with INR 13.40 SEC (9.7-13.0) H 12/21/18 09:35 INR 1.13 (0.83-1.09) H 12/21/18 09:35 Anticoagulation Therapy No Result Required. 12/23/18 09:05 Puncture Site Right radial 12/23/18 09:05 ABG pH 7.23 (7.35-7.45) L* 12/23/18 09:05 ABG pCO2 at Pt Temp 43.6 mmHg (35-45) 12/23/18 09:05 ABG pO2 at Pt Temp 212.0 mmHg (68-100) H* 12/23/18 09:05 ABG HCO3 18.0 meq/L (22-26) L 12/23/18 09:05 ABG O2 Sat (Measured) 98.9 % (90-98.9) 12/23/18 09:05 ABG O2 Content 16.6 % vol (15-22) 12/23/18 09:05 ABG Base Excess No Result Required. 12/23/18 09:05 Ronald Test No Result Required. 12/23/18 09:05 O2 Delivery Device No Result Required. 12/23/18 09:05 Oxygen Flow Rate No Result Required. 12/23/18 09:05 Vent Mode No Result Required. 12/23/18 09:05 Vent Rate No Result Required. 12/23/18 09:05 Mechanical Rate No Result Required. 12/23/18 09:05 Pressure Support Vent No Result Required. 12/23/18 09:05 Sodium 145 mmol/L (136-145) 12/23/18 06:00 Potassium 3.8 mmol/L (3.5-5.1) 12/23/18 06:00 Chloride 116 mmol/L (98-107) H 12/23/18 06:00 Carbon Dioxide 19 mmol/L (21-32) L 12/23/18 06:00 Anion Gap 10 MMOL/L (8-16) 12/23/18 06:00 BUN 21 mg/dL (7-18) H 12/23/18 06:00 Creatinine 1.0 mg/dL (0.55-1.3) 12/23/18 06:00 Creat Clearance w eGFR 52.69 (>60) 12/23/18 06:00 Random Glucose 160 mg/dL (74-106) H 12/23/18 06:00 Hemoglobin A1c % 5.6 % (4.2-6.3) 12/22/18 05:30 Lactic Acid 2.0 mmol/L (0.4-2.0) 12/23/18 00:30 Calcium 7.6 mg/dL (8.5-10.1) L 12/23/18 06:00 Phosphorus 4.9 mg/dL (2.5-4.9) 12/22/18 05:30 Magnesium 1.5 mg/dL (1.8-2.4) L 12/23/18 06:00 Total Bilirubin 0.8 mg/dL (0.2-1) 12/23/18 06:00 AST 16 U/L (15-37) 12/23/18 06:00 ALT 15 U/L (13-61) 12/23/18 06:00 Alkaline Phosphatase 49 U/L (45-117) 12/23/18 06:00 Creatine Kinase 26 U/L (26-192) 12/21/18 08:49 Troponin I 0.02 ng/ml (0.00-0.05) 12/21/18 08:49 Total Protein 4.1 g/dl (6.4-8.2) L 12/23/18 06:00 Albumin 2.0 g/dl (3.4-5.0) L 12/23/18 06:00 Lipase 98 U/L (73-393) 12/21/18 08:49 Urine Color Fawn 12/22/18 01:25 Urine Appearance Cloudy 12/22/18 01:25 Urine pH 5.0 (5.0-8.0) 12/22/18 01:25 Ur Specific Bowers 1.028 (1.010-1.035) 12/22/18 01:25 Urine Protein 2+ (NEGATIVE) H 12/22/18 01:25 Urine Glucose (UA) Negative (NEGATIVE) 12/22/18 01:25 Urine Ketones Trace (NEGATIVE) H 12/22/18 01:25 Urine Blood Negative (NEGATIVE) 12/22/18 01:25 Urine Nitrite Negative (NEGATIVE) 12/22/18 01:25 Urine Bilirubin 4.0 (<2.0 mg/dL) 12/22/18 01:25 Urine Urobilinogen Negative mg/dL (0.2-1.0) 12/22/18 01:25 Ur Leukocyte Esterase Trace (NEGATIVE) 12/22/18 01:25 Urine WBC (Auto) 6 /hpf (3-5) 12/22/18 01:25 Urine RBC (Auto) 1 /hpf (0-3) 12/22/18 01:25 Ur Epithelial Cells Few /HPF (FEW) 12/22/18 01:25 Urine Bacteria Rare /hpf (NONE SEEN) 12/22/18 01:25 Hyaline Casts 39 /lpf 12/22/18 01:25 Urine Mucus Many 12/22/18 01:25 Blood Type O POSITIVE 12/22/18 16:30 Antibody Screen Negative 12/22/18 16:30 ecg: aflutter with 2:1 avb, vr 127, no ischemic changes echo 07/2015: nl lv/rv, no sig valve path tele: aflutter, vr in 130s echo 07/2015: nl lv/rv, no sig valve path cxr: clear lungs est cct 35 mins a/p: 83 f hx dementia, afib/flutter, gerd, htn, tia, sent from ct for coffee ground emesis. aflutter: - was on diltiazem 60 mg QID and propranolol 120 mg BID but now npo after surgery for sbo. HR remains elevated and bp is low on levo now so will avoid bb/ ccb. Will start amio gtt for now while tachy with low bp. - cont tele - eliquis on hold for surgery, resume AC when possible. If remains npo can give lovenox. hypotension: -rate control as above -wean off levo as bp allows htn: -monitor off meds given hypotension GIB: -recent admit for GIB, hgb stable here -plans per GI were outpt scopes sbo: -s/p surgery, extubated now
--- NOTE | 2018-12-23 12:30 | PN ---
Progress Note, Physician Chief Complaint: LBO History of Present Illness: 83 yo female PMH reflux, esophagitis, dementia, hallucinations, ataxia, HTN, benign neoplasm of cerebral meninges, who presents to the emergency department via EMS from longterm due to nausea and vomiting that started today. She has been stable since surgery. - Current Medication List Current Medications: Active Medications Acetaminophen (Ofirmev Injection -) 1,000 mg IVPB Q6H PRN PRN Reason: PAIN LEVEL 4 - 6 Last Admin: 12/22/18 12:30 Dose: 1,000 mg Diltiazem HCl (Cardizem Injection -) 10 mg IVPUSH Q4H PRN PRN Reason: TACHYCARDIA Last Admin: 12/22/18 13:26 Dose: 10 mg Fluticasone Propionate (Flonase -) 2 spray NS DAILY OBDULIO Last Admin: 12/22/18 12:18 Dose: 2 spray Sodium Chloride (Normal Saline -) 1,000 mls @ 100 mls/hr IV ASDIR OBDULIO Last Admin: 12/23/18 05:32 Dose: 100 mls/hr Vasopressin 50 units/ Sodium (Chloride) 100 mls @ 4 mls/hr IVPB ASDIR OBDULIO; Protocol Last Titration: 12/23/18 09:59 Dose: 0 units/hr, 0 mls/hr Norepinephrine Bitartrate 8, (000 mcg/ Dextrose) 500 mls @ 18.75 mls/hr IV TITR OBDULIO; Protocol Last Titration: 12/23/18 09:00 Dose: 8 mcg/min, 30 mls/hr Cefazolin Sodium 500 mg/ (Dextrose) 50 mls @ 50 mls/30 min IVPB Q8H-IV OBDULIO Last Admin: 12/23/18 09:57 Dose: 50 mls/30 min Amiodarone HCl/Dextrose (Nexterone 360 Mg/200 Ml Bag) 360 mg in 200 mls @ 16.667 mls/hr IVPB ASDIR OBDULIO; Protocol Amiodarone HCl/Dextrose (Nexterone 360 Mg/200 Ml Bag) 360 mg in 200 mls @ 33.333 mls/hr IVPB ONCE ONE; Protocol Stop: 12/23/18 16:06 Last Admin: 12/23/18 11:18 Dose: 33.333 mls/hr Metoprolol Tartrate (Lopressor Injection -) 5 mg IVPUSH Q4H-IV OBDULIO Last Admin: 12/23/18 11:18 Dose: Not Given Ondansetron HCl (Zofran Injection) 4 mg IVPUSH Q6H PRN PRN Reason: NAUSEA Last Admin: 12/22/18 12:39 Dose: 4 mg Pantoprazole Sodium (Protonix Iv) 40 mg IVPUSH DAILY [facility] Last Admin: 12/23/18 11:17 Dose: 40 mg - Objective Vital Signs: Vital Signs Temperature 97.5 F L 12/23/18 10:00 Pulse Rate 135 H 12/23/18 10:00 Respiratory Rate 16 12/23/18 10:00 Blood Pressure 106/57 L 12/23/18 10:00 O2 Sat by Pulse Oximetry (%) 100 12/23/18 09:00 Vital Signs Period Temp Pulse Resp BP Sys/Germain Pulse Ox Last 24 Hr 97.5 F-98.5 F 90-135 12-23 55-136/34-94 97-100 Intake & Output 12/22/18 12/23/18 12/23/18 23:59 07:59 15:59 Intake Total 400 3249 Output Total 200 350 Balance 200 2899 Intake: IV 400 3249 Levophed - 8,000 Mcg In 207 D5w - 492 ml @ 5 MCG/MIN 18.75 mls/hr IV TITR OBDULIO Rx#:[id number] Normal Saline - 1,000 ml 3000 @ 100 mls/hr IV ASDIR [facility] Rx#:[id number] Pitressin - 50 Units In 42 Normal Saline - 97.5 ml @ 2 UNITS/HR 4 mls/hr IVPB ASDIR [facility] Rx#: [id number] Oral 0 Output: Gastric Drainage 250 Urine 200 100 Andre 100 Other: Voiding Method Indwelling Catheter Indwelling Catheter Bowel Movement No Constitutional: Yes: Well Nourished, No Distress, Calm Eyes: Yes: Conjunctiva Clear, EOM Intact HENT: Yes: Atraumatic, Normocephalic Neck: Yes: Supple, Trachea Midline Cardiovascular: Yes: Regular Rate and Rhythm, S1, S2 Respiratory: Yes: Regular, CTA Bilaterally Gastrointestinal: Yes: Normal Bowel Sounds, Soft ...Rectal Exam: Yes: Deferred Genitourinary: No: CVA Tenderness - Left, CVA Tenderness - Right Breast(s): No: Dimpling, Nipple Inversion Musculoskeletal: No: Muscle Pain, Muscle Weakness Extremities: No: Cool, Cyanosis Edema: LUE: Trace, RUE: Trace, LLE: Trace, RLE: Trace Peripheral Pulses WNL: Yes Peripheral Pulses: Left Radial: 2+, Right Radial: 2+, Left Doralis Pedis: 2+, Right Dorsalis Pedis: 2+, Left Femoral: 2+, Right Femoral: 2+ Wound/Incision: Yes: Clean/Dry, Well Approximated Neurological: Yes: Alert, Oriented Psychiatric: Yes: Alert, Oriented Labs: CBC, BMP 12/23/18 09:01 12/23/18 06:00 INR, PTT INR 1.13 (0.83-1.09) H 12/21/18 09:35 Problem List - Problems (1) Colon obstruction Assessment/Plan: 83yo [place] returned [place] the next morning after discharge with feculent emesis and an identified large bowel obstruction suspicious for malignancy. this may be a missed diagnosis from previous admission. POD#1 s/p Right hemicolectomy for an obstructing colon mass ICU management NPO and IVF hydration NGT to LCWS IV antibiotics X 24 hours trend labs Early mobilization OOB encourage IS ID consult for continued antibiotics This patient is critically ill. Time spent reviewing chart, examining patient, talking with providers and/or family and documentation is 35 minutes. Code(s): K56.609 - UNSP INTESTNL OBST, UNSP TO PARTIAL VERSUS COMPLETE OBST (2) Atrial fibrillation with RVR Code(s): I48.91 - UNSPECIFIED ATRIAL FIBRILLATION (3) Dementia Code(s): F03.90 - UNSPECIFIED DEMENTIA WITHOUT BEHAVIORAL DISTURBANCE (4) Esophagitis Code(s): K20.9 - ESOPHAGITIS, UNSPECIFIED (5) GERD (gastroesophageal reflux disease) Code(s): K21.9 - GASTRO-ESOPHAGEAL REFLUX DISEASE WITHOUT ESOPHAGITIS (6) Hypertension Code(s): I10 - ESSENTIAL (PRIMARY) HYPERTENSION Qualifiers: Hypertension type: essential hypertension Qualified Code(s): I10 - Essential (primary) hypertension
--- NOTE | 2018-12-23 12:35 | OP ---
Operative Note - Note: Operative Date: 12/22/18 Pre-Operative Diagnosis: large bowel obstrucstion Operation: Exploratory laparotomy, right toribio colectomy with promary ileotransverse stapled anastomosis Findings: obstructing ascending colon mass, obvious transition point. large palpable mesenteric lymph nodes taken en-bloc in the root of the mestentary. Post-Operative Diagnosis: Same as Pre-op Surgeon: Javier Navarro Pocket Machine Operator: Mundo Beaver Anesthesiologist/TRIMMER LOADER: Xi Mendoza Anesthesia: General Specimens Removed: terminal ileum, ileocecal valve, right colon and portion of transverese Estimated Blood Loss (mls): 100 Drains & Tubes with Location: NGT, cervantes Drains, Volume Out (mls): 100 (UOP) Fluid Volume Replaced (mls): 3,500 Operative Report Dictated: Yes
[2018-12-23] MEDS: LACTATED RINGERS SOLUTION 1,000 ML/1,000 ML INFUS.BAG IV SCH ×2 (13:00→21:44)
[2018-12-23] MEDS: AMIODARONE IN DEXTROSE,ISO-OSM 360 MG/200 ML BAG IVPB SCH ×2 (13:13→17:30)
[2018-12-23] MEDS: FLUTICASONE PROP 0.05% 16 GM NASAL SPRAY NS SCH (13:14)
[2018-12-23] MEDS ORDERED: DEXTROSE 5%-WATER - 50 ML IVPB ONE ×2 (14:12→21:37)
[2018-12-23] MEDS ORDERED: PIPERACILLIN/TAZOBACTAM 3.375 GM VIAL IVPB ONE (14:12)
[2018-12-23] MEDS ORDERED: PIPERACILLIN/TAZOB 3.375 GM 3.375 GM in DEXTROSE 5%-WATER - 50 ML IVPB ONE (14:15)
--- NOTE | 2018-12-23 16:13 | CON.ID ---
Consult Consult Specialty:: infectious diseases Referred by:: Reason for Consultation:: leukocytosis,post op - History of Present Illness Chief Complaint: abd pain History of Present Illness: 83 year old female with past medical history of reflux, esophagitis, dementia, hallucinations, ataxia, HTN, benign neoplasm of cerebral meninges, who presents to the emergency department via [facility] due to nausea and vomiting that started today. She was evaluated in the ED and was noted to be with afib with RVR . Patient is a poor historian and confused at baseline. She was mostly recently at [facility] between 12/13/2018 and 12/20/2018 for vomitus with coffee ground emesis. She is s/p EGD which was negative. A colonoscopy was not done secondary to electroyte imbalance and persistent tachycardia. She was discharged and recommended to follow up with GI outpatient for a colonscopy. On last admission, she did not have any nausea or vomiting and tolerated her diet. She had a BM on 12/19/2018 during her hospital stay. 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: Dementia (mild), Other (?meningioma) Cardio/Vascular: Yes: HTN Gastrointestinal: Yes: GERD ...: No - Alcohol/Substance Use Hx Alcohol Use: No History of Substance Use: reports: None - Smoking History Smoking history: Former smoker Have you smoked in the past 12 months: No - Social History Usual Living Arrangement: Longterm ADL: Support Services History of Recent Travel: No Home Medications - Allergies Allergies/Adverse Reactions: Allergies Allergy/AdvReac Type Severity Reaction Status Date / Time No Known Allergies Allergy Verified 12/21/18 08:50 - Home Medications Home Medications: Ambulatory Orders RX: Donepezil HCl [Aricept] 10 mg PO HS 07/23/15 RX: Apixaban [Eliquis -] 5 mg PO BID #60 tablet 07/30/15 RX: Fluticasone Prop 0.05% Nasal [Flonase -] 2 spray NS DAILY #1 bottle RX: Ferrous Gluconate [Iron] 240 mg PO DAILY 12/13/18 RX: Loratadine [Claritin -] 10 mg PO DAILY 12/13/18 RX: Mirtazapine [Remeron -] 15 mg PO HS 12/13/18 RX: Propranolol HCl [Inderal LA] 120 mg PO BID 12/13/18 RX: Sennosides/Docusate Sodium [Senokot-S Tablet] 2 each PO HS 12/13/18 RX: Diltiazem [Cardizem -] 60 mg PO Q6HPO tablet 12/20/18 RX: propRANOLol HCL [Inderal LA -] 120 mg PO BID capsule.er 12/20/18 Family Disease History - Family Disease History Other Family History: No family history of colon cancer Review of Systems - Review of Systems Constitutional: reports: No Symptoms Eyes: reports: No Symptoms HENT: reports: No Symptoms Neck: reports: No Symptoms Cardiovascular: reports: No Symptoms Respiratory: reports: No Symptoms Gastrointestinal: reports: No Symptoms Genitourinary: reports: No Symptoms Musculoskeletal: reports: No Symptoms Integumentary: reports: No Symptoms Neurological: reports: No Symptoms Endocrine: reports: No Symptoms Hematology/Lymphatic: reports: No Symptoms Psychiatric: reports: No Symptoms Physical Exam Vital Signs: Vital Signs Temperature 97.4 F L 12/23/18 13:00 Pulse Rate 127 H 12/23/18 15:00 Respiratory Rate 16 12/23/18 14:00 Blood Pressure 105/79 12/23/18 15:00 O2 Sat by Pulse Oximetry (%) 100 12/23/18 09:00 Constitutional: Yes: Well Nourished, No Distress, Calm, Other (mild confusion) Eyes: Yes: Conjunctiva Clear HENT: Yes: Atraumatic Cardiovascular: Yes: Tachycardia, S1, S2 Respiratory: Yes: Regular, CTA Bilaterally Gastrointestinal: Yes: Soft, Other (absent bowel sounds) Musculoskeletal: Yes: WNL Extremities: Yes: Other Neurological: Yes: Alert, Other (confused) Labs: CBC, BMP 12/23/18 09:01 12/23/18 06:00 Imaging - Results Chest X-ray: Report Reviewed, Image Reviewed X-ray: Report Reviewed, Image Reviewed Cat Scan: Report Reviewed, Image Reviewed Assessment/Plan - Problems (1) Colon obstruction Code(s): K56.609 - UNSP INTESTNL OBST, UNSP TO PARTIAL VERSUS COMPLETE OBST (2) Atrial fibrillation with RVR Code(s): I48.91 - UNSPECIFIED ATRIAL FIBRILLATION (3) Dementia Code(s): F03.90 - UNSPECIFIED DEMENTIA WITHOUT BEHAVIORAL DISTURBANCE (4) Esophagitis Code(s): K20.9 - ESOPHAGITIS, UNSPECIFIED (5) GERD (gastroesophageal reflux disease) Code(s): K21.9 - GASTRO-ESOPHAGEAL REFLUX DISEASE WITHOUT ESOPHAGITIS (6) Hypertension Code(s): I10 - ESSENTIAL (PRIMARY) HYPERTENSION Qualifiers: Hypertension type: essential hypertension Qualified Code(s): I10 - Essential (primary) hypertension leukocytosis very close watch on wbc if wbc increases again will image the patient will start her on abx rest as per icu heart fast cardio on case rest as per surgery monitor the wound site cc 45 min
[2018-12-23] MEDS ORDERED: NOREPINEPHRINE BITARTRATE 4 MG/4 ML ML IV ONE (16:18)
[2018-12-23] MEDS ORDERED: PIPERACILLIN/TAZOB 4.5 GM 4.5 GM in DEXTROSE 5%-WATER 100 ML IVPB SCH (18:00)
[2018-12-23] MEDS: ACETAMINOPHEN 1000 MG/100 ML VIAL (NON FORMULARY) IVPB PRN (18:52)
[2018-12-23 19:05] LABS: ANISOCYTOSIS 1+; MACROCYTOSIS 0; PLATELET ESTIMATE NORMAL
[2018-12-23] MEDS ORDERED: PIPERACILLIN/TAZOBACTAM 2.25 GM VIAL IVPB ONE (21:37)
[2018-12-23] MEDS: PIPERACILLIN/TAZOB 2.25 GM 2.25 GM in DEXTROSE 5%-WATER - 50 ML IVPB SCH (21:41)
[2018-12-23] MEDS ORDERED: PHENYLEPHRINE HCL 10 MG/1 ML SINGLE DOSE VIAL ONE (22:37)
[2018-12-23] MEDS ORDERED: LACTATED RINGERS SOLUTION 1000 ML INFUS.BAG IV SCH (23:00)
[2018-12-23] MEDS ORDERED: LACTATED RINGERS SOLUTION 2,000 ML IV ONE (23:00)
[2018-12-23] MEDS ORDERED: PHENYLEPHRINE HCL 20,000 MCG in SODIUM CHLORIDE 248 ML IVPB SCH (23:00)
[2018-12-24] MEDS: NOREPINEPHRINE BITARTRATE 8,000 MCG in DEXTROSE 5%-WATER - 492 ML IV SCH (01:12)
[2018-12-24] MEDS ORDERED: PIPERACILLIN/TAZOBACTAM 2.25 GM VIAL IVPB ONE ×4 (03:23→21:11)
[2018-12-24] MEDS ORDERED: DEXTROSE 5%-WATER - 50 ML IVPB ONE ×4 (03:23→21:12)
[2018-12-24] MEDS: PIPERACILLIN/TAZOB 2.25 GM 2.25 GM in DEXTROSE 5%-WATER - 50 ML IVPB SCH ×4 (03:45→21:19)
[2018-12-24] MEDS: LACTATED RINGERS SOLUTION 1,000 ML/1,000 ML INFUS.BAG IV SCH (03:45)
[2018-12-24] MEDS: AMIODARONE IN DEXTROSE,ISO-OSM 360 MG/200 ML BAG IVPB SCH ×2 (05:37→14:34)
[2018-12-24 07:18] LABS: HEMATOCRIT 29.9 % (32.4-45.2); HEMOGLOBIN 9.6 GM/dL (10.7-15.3); MCH 24.4 pg (25.7-33.7); MEAN CELL VOLUME 76.5 fl (80-96); MEAN PLT VOLUME 9.3 fl (7.5-11.1); PLATELET COUNT 115 K/MM3 (134-434); RBC 3.91 M/mm3 (3.60-5.2); RDW 19.4 % (11.6-15.6); WHITE BLOOD COUNT 11.1 K/mm3 (4.0-10.0)
[2018-12-24 07:39] LABS: ALBUMIN 1.5 g/dl (3.4-5.0); ALK PHOS 52 U/L (45-117); ANION GAP 6 MMOL/L (8-16); BILIRUBIN,TOTAL 0.3 mg/dL (0.2-1); BLOOD UREA NITROGEN 18 mg/dL (7-18); CALCIUM 7.3 mg/dL (8.5-10.1); CHLORIDE 114 mmol/L (98-107); CO2 22 mmol/L (21-32); GLUCOSE,RANDOM 99 mg/dL (74-106); POTASSIUM 3.3 mmol/L (3.5-5.1); SGOT/AST 13 U/L (15-37); SGPT/ALT 11 U/L (13-61); SODIUM 142 mmol/L (136-145); TOT PROT 3.4 g/dl (6.4-8.2)
[2018-12-24] MEDS ORDERED: KCL 10 MEQ IVPB 10 MEQ/100 ML INFUS.BAG IVPB SCH (07:45)
[2018-12-24 08:45] LABS: MAGNESIUM 1.8 mg/dL (1.8-2.4)
--- NOTE | 2018-12-24 08:54 | PN ---
Physical Exam: SUBJECTIVE: Patient seen and examined at the bedside. awake and alert confused overnight and pulled out her IVs. OBJECTIVE: off pressors vitals stable wbc 11.1 Vital Signs Period Temp Pulse Resp BP Sys/Germain Pulse Ox Last 24 Hr 97.4 F-99.9 F 117-137 15-22 87-113/51-82 94-100 GENERAL: The patient is awake, in no acute distress. HEAD: Normal with no signs of trauma. EYES: PERRL, extraocular movements intact, sclera anicteric, conjunctiva clear. No ptosis. ENT: Ears normal, nares patent, dry mucous membranes. NECK: Trachea midline, full range of motion, supple. LUNGS: Breath sounds equal, clear to auscultation bilaterally, no wheezes, no crackles HEART: afib rvr 130s ABDOMEN: surgical site cdi EXTREMITIES: no edema. NEUROLOGICAL: Normal speech, gait not observed. PSYCH: Normal mood, normal affect. Laboratory Results - last 24 hr 12/23/18 12/23/18 12/23/18 06:00 09:01 09:05 WBC 25.0 H RBC 4.96 Hgb 11.7 Hct 38.1 MCV 76.8 L MCH 23.6 L MCHC 30.7 L RDW 19.6 H Plt Count 225 D MPV 9.3 Absolute Neuts (auto) 21.8 H Neutrophils % 87.0 H Neutrophils % (Manual) 80.2 Band Neutrophils % 8.9 Lymphocytes % 7.1 L D Lymphocytes % (Manual) 3.0 L Monocytes % 5.7 Monocytes % (Manual) 7 Eosinophils % 0.0 D Eosinophils % (Manual) 0.0 Basophils % 0.2 Basophils % (Manual) 0.0 Myelocytes % (Man) 0 Promyelocytes % (Man) 0 Blast Cells % (Manual) 0 Nucleated RBC % 0 Metamyelocytes 0 Hypochromia 0 Platelet Estimate Normal Polychromasia 1+ Poikilocytosis 1+ Anisocytosis 1+ Microcytosis 1+ Macrocytosis 0 Tesfaye Cells 2+ Anticoagulation Therapy No Result Required. Puncture Site Right radial ABG pH 7.23 L* ABG pCO2 at Pt Temp 43.6 ABG pO2 at Pt Temp 212.0 H* ABG HCO3 18.0 L ABG O2 Sat (Measured) 98.9 ABG O2 Content 16.6 ABG Base Excess No Result Required. Ronald Test No Result Required. O2 Delivery Device No Result Required. Oxygen Flow Rate No Result Required. Vent Mode No Result Required. Vent Rate No Result Required. Mechanical Rate No Result Required. Pressure Support Vent No Result Required. Sodium 145 Potassium 3.8 Chloride 116 H Carbon Dioxide 19 L Anion Gap 10 BUN 21 H Creatinine 1.0 Creat Clearance w eGFR 52.69 Random Glucose 160 H Calcium 7.6 L Magnesium 1.5 L Total Bilirubin 0.8 AST 16 ALT 15 Alkaline Phosphatase 49 Total Protein 4.1 L Albumin 2.0 L 12/24/18 12/24/18 06:00 07:02 WBC 11.1 H RBC 3.91 Hgb 9.6 L Hct 29.9 L D MCV 76.5 L MCH 24.4 L MCHC 32.0 RDW 19.4 H Plt Count 115 L D MPV 9.3 Absolute Neuts (auto) Neutrophils % Neutrophils % (Manual) Band Neutrophils % Lymphocytes % Lymphocytes % (Manual) Monocytes % Monocytes % (Manual) Eosinophils % Eosinophils % (Manual) Basophils % Basophils % (Manual) Myelocytes % (Man) Promyelocytes % (Man) Blast Cells % (Manual) Nucleated RBC % Metamyelocytes Hypochromia Platelet Estimate Polychromasia Poikilocytosis Anisocytosis Microcytosis Macrocytosis Hilliard Cells Anticoagulation Therapy Puncture Site ABG pH ABG pCO2 at Pt Temp ABG pO2 at Pt Temp ABG HCO3 ABG O2 Sat (Measured) ABG O2 Content ABG Base Excess Ronald Test O2 Delivery Device Oxygen Flow Rate Vent Mode Vent Rate Mechanical Rate Pressure Support Vent Sodium 142 Potassium 3.3 L Chloride 114 H Carbon Dioxide 22 Anion Gap 6 L BUN 18 Creatinine 1.0 Creat Clearance w eGFR 52.69 Random Glucose 99 Calcium 7.3 L Magnesium 1.8 Total Bilirubin 0.3 AST 13 L ALT 11 L Alkaline Phosphatase 52 Total Protein 3.4 L Albumin 1.5 L Active Medications Generic Name Dose Route Start Last Admin Trade Name Freq PRN Reason Stop Dose Admin Acetaminophen 1,000 mg 12/21/18 21:32 12/23/18 18:52 Ofirmev Injection - IVPB 1,000 mg Q6H PRN Administration PAIN LEVEL 4 - 6 Diltiazem HCl 10 mg 12/22/18 11:37 12/22/18 13:26 Cardizem Injection - IVPUSH 10 mg Q4H PRN Administration TACHYCARDIA Fluticasone Propionate 2 spray 12/22/18 10:00 12/23/18 13:14 Flonase - NS Not Given DAILY OBDULIO Amiodarone HCl/Dextrose 360 mg in 200 mls @ 16.667 mls/hr 12/23/18 10:15 08/04 05:37 Nexterone 360 Mg/200 Ml Bag IVPB 16.667 mls/hr ASDIR OBDULIO Administration Protocol 0.5 MG/MIN Lactated Ringer's 1,000 ml in 1,000 mls @ 100 mls/hr 12/23/18 13:30 12/24/18 03:45 Lactated Ringers Solution IV 100 mls/hr ASDIR OBDULIO Administration Piperacillin Sod/Tazobactam 50 mls @ 100 mls/hr 12/23/18 21:00 12/24/18 03:45 Sod 2.25 gm/ Dextrose IVPB 100 mls/hr Q6H-IV OBDULIO Administration Potassium Chloride 10 meq in 100 mls @ 100 mls/hr 12/24/18 09:00 Potassium Chloride 10 Meq Premix Ivpb - IVPB 12/24/18 10:59 Q60M OBDULIO Metoprolol Tartrate 5 mg 12/21/18 19:30 12/23/18 18:00 Lopressor Injection - IVPUSH Not Given Q4H-IV OBDULIO Ondansetron HCl 4 mg 12/21/18 23:40 12/22/18 12:39 Zofran Injection IVPUSH 4 mg Q6H PRN Administration NAUSEA Pantoprazole Sodium 40 mg 12/21/18 19:15 12/23/18 11:17 Protonix Iv IVPUSH 40 mg DAILY OBDULIO Administration ASSESSMENT/PLAN: Patient is an 83 year old female with past medical history of reflux, esophagitis, dementia, hallucinations, ataxia, HTN, benign neoplasm of cerebral meninges, who presents to the emergency department via [facility] due to nausea and vomiting. She was evaluated in the ED and was noted to be with afib with RVR . Patient is a poor historian and confused at baseline. She was mostly recently at [facility] between 12/13/2018 and 12/20/2018 for vomitus with coffee ground emesis. She is s/p EGD which was negative. A colonoscopy was not done secondary to electrolyte imbalance and persistent tachycardia. She was discharged and recommended to follow up with GI outpatient for a colonscopy. Imaging: Abdominal CT w/o contrast 12/21/18 shows diffuse to moderate marked dilatation of the small bowel including the terminal ileum with significant dilatation of the cecum and proximal ascending colon up to a point of transition seen in the proximal/mid ascending colon where there is suggestion of wall thickening and collapse of the rest of the colon consistent with obstruction. EKG: Afib, Aflutter with 2:1 AV conduction, HR 120s tele: afib rvr 136s GI: Acute bowel obstructions seen on Abd CT Abd xray with SBO s/p exp lap for SBO POD 2 Post Op Care: incentive spirometer when able to perform IVF hydration advance diet per surgery monitor pain post op antibiotics SCDs ICU Care ID: Septic shock, resolved on zosyn care per icu team do not intubate Cardiac Uncontolled afib with RVR started on amiodorone ivpb Hypertension, now hypotensive off pessors. bp low stable fen IVF NPO Protonix prophy physical therapy SCDs and CHLOE stockings hold eliquis dnr/dni Visit type - Emergency Visit Emergency Visit: Yes ED Registration Date: 12/22/18 Care time: The patient presented to the Emergency Department on the above date and was hospitalized for further evaluation of their emergent condition. - New Patient This patient is new to me today: No - Critical Care Critical Care patient: Yes Total Critical Care Time (in minutes): 30 Critical Care Statement: The care of this patient involved high complexity decision making to prevent further life threatening deterioration of the patient 's condition and/or to evaluate & treat vital organ system(s) failure or risk of failure.
--- NOTE | 2018-12-24 09:10 | PN ---
Progress Note (short form) - Note Progress Note: Pulm/ccm Seen and examined in ICU 24HR: -wbc down trended -confused overnight pulled all lines -some Bowel sounds this am -off pressors with some additional IVF -OOB this am Vital Signs Temp 97.8 F 12/24/18 03:00 Pulse 134 H 12/24/18 06:00 Resp 21 H 12/24/18 06:00 BP 106/64 12/24/18 06:00 Pulse Ox 98 12/23/18 23:37 Intake & Output 12/23/18 12/23/18 12/24/18 11:59 23:59 12:59 Intake Total 3249 3022.9 2864 Output Total 350 175 100 Balance 2899 2847.9 2764 Weight 83.915 kg Intake: IV 3249 2672.9 2864 Amiodarone drip 224.9 268 LACTATED RINGERS SOLUTION 1000 1,000 ml In 1,000 ml @ 100 mls/hr IV ASDIR [facility] Rx#:[id number] LR 1000cc IV bolus 1000 2500 Levophed - 8,000 Mcg In 207 348 96 D5w - 492 ml @ 5 MCG/MIN 18.75 mls/hr IV TITR OBDULIO Rx#:[id number] Normal Saline - 1,000 ml 3000 100 @ 100 mls/hr IV ASDIR [facility] Rx#:[id number] Pitressin - 50 Units In 42 Normal Saline - 97.5 ml @ 2 UNITS/HR 4 mls/hr IVPB ASDIR [facility] Rx#: [id number] IVPB 350 Oral 0 Output: Gastric Drainage 250 Urine 100 175 100 Andre 100 175 100 Other: Voiding Method Indwelling Catheter Indwelling Catheter Bowel Movement No No No Height 5 ft 6 in Body Mass Index (BMI) 29.8 Active Medications Acetaminophen (Ofirmev Injection -) 1,000 mg IVPB Q6H PRN PRN Reason: PAIN LEVEL 4 - 6 Last Admin: 12/23/18 18:52 Dose: 1,000 mg Diltiazem HCl (Cardizem Injection -) 10 mg IVPUSH Q4H PRN PRN Reason: TACHYCARDIA Last Admin: 12/22/18 13:26 Dose: 10 mg Fluticasone Propionate (Flonase -) 2 spray NS DAILY [facility] Last Admin: 12/23/18 13:14 Dose: Not Given Amiodarone HCl/Dextrose (Nexterone 360 Mg/200 Ml Bag) 360 mg in 200 mls @ 16.667 mls/hr IVPB ASDIR OBDULIO; Protocol Last Admin: 12/24/18 05:37 Dose: 16.667 mls/hr Lactated Ringer's (Lactated Ringers Solution) 1,000 ml in 1,000 mls @ 100 mls/ hr IV ASDIR OBDULIO Last Admin: 12/24/18 03:45 Dose: 100 mls/hr Piperacillin Sod/Tazobactam (Sod 2.25 gm/ Dextrose) 50 mls @ 100 mls/hr IVPB Q6H-IV OBDULIO Last Admin: 12/24/18 03:45 Dose: 100 mls/hr Potassium Chloride (Potassium Chloride 10 Meq Premix Ivpb -) 10 meq in 100 mls @ 100 mls/hr IVPB Q60M OBDULIO Stop: 12/24/18 10:59 Metoprolol Tartrate (Lopressor Injection -) 5 mg IVPUSH Q4H-IV OBDULIO Last Admin: 12/23/18 18:00 Dose: Not Given Ondansetron HCl (Zofran Injection) 4 mg IVPUSH Q6H PRN PRN Reason: NAUSEA Last Admin: 12/22/18 12:39 Dose: 4 mg Pantoprazole Sodium (Protonix Iv) 40 mg IVPUSH DAILY OBDULIO Last Admin: 12/23/18 11:17 Dose: 40 mg CBC,CMP WBC 11.1 K/mm3 (4.0-10.0) H 12/24/18 07:02 RBC 3.91 M/mm3 (3.60-5.2) 12/24/18 07:02 Hgb 9.6 GM/dL (10.7-15.3) L 12/24/18 07:02 Hct 29.9 % (32.4-45.2) L D 12/24/18 07:02 MCV 76.5 fl (80-96) L 12/24/18 07:02 MCH 24.4 pg (25.7-33.7) L 12/24/18 07:02 MCHC 32.0 g/dl (32.0-36.0) 12/24/18 07:02 RDW 19.4 % (11.6-15.6) H 12/24/18 07:02 Plt Count 115 K/MM3 (134-434) L D 12/24/18 07:02 MPV 9.3 fl (7.5-11.1) 12/24/18 07:02 Absolute Neuts (auto) 21.8 K/mm3 (1.5-8.0) H 12/23/18 09:01 Neutrophils % 87.0 % (42.8-82.8) H 12/23/18 09:01 Neutrophils % (Manual) 80.2 % (42.8-82.8) 12/23/18 09:01 Band Neutrophils % 8.9 % 12/23/18 09:01 Lymphocytes % 7.1 % (8-40) L D 12/23/18 09:01 Lymphocytes % (Manual) 3.0 % (8-40) L 12/23/18 09:01 Monocytes % 5.7 % (3.8-10.2) 12/23/18 09:01 Monocytes % (Manual) 7 % (3.8-10.2) 12/23/18 09:01 Eosinophils % 0.0 % (0-4.5) D 12/23/18 09:01 Eosinophils % (Manual) 0.0 % (0-4.5) 12/23/18 09:01 Basophils % 0.2 % (0-2.0) 12/23/18 09:01 Basophils % (Manual) 0.0 % (0-2.0) 12/23/18 09:01 Myelocytes % (Man) 0 % (0-2) 12/23/18 09:01 Promyelocytes % (Man) 0 % (0-2) 12/23/18 09:01 Blast Cells % (Manual) 0 % (0-0) 12/23/18 09:01 Nucleated RBC % 0 % (0-0) 12/23/18 09:01 Metamyelocytes 0 % (0-2) 12/23/18 09:01 Hypochromia 0 12/23/18 09:01 Platelet Estimate Normal 12/23/18 09:01 Polychromasia 1+ 12/23/18 09:01 Poikilocytosis 1+ 12/23/18 09:01 Anisocytosis 1+ 12/23/18 09:01 Microcytosis 1+ 12/23/18 09:01 Macrocytosis 0 12/23/18 09:01 Tesfaye Cells 2+ 12/23/18 09:01 Sodium 142 mmol/L (136-145) 12/24/18 06:00 Potassium 3.3 mmol/L (3.5-5.1) L 12/24/18 06:00 Chloride 114 mmol/L (98-107) H 12/24/18 06:00 Carbon Dioxide 22 mmol/L (21-32) 12/24/18 06:00 Anion Gap 6 MMOL/L (8-16) L 12/24/18 06:00 BUN 18 mg/dL (7-18) 12/24/18 06:00 Creatinine 1.0 mg/dL (0.55-1.3) 12/24/18 06:00 Creat Clearance w eGFR 52.69 (>60) 12/24/18 06:00 Random Glucose 99 mg/dL (74-106) 12/24/18 06:00 Hemoglobin A1c % 5.6 % (4.2-6.3) 12/22/18 05:30 Lactic Acid 2.0 mmol/L (0.4-2.0) 12/23/18 00:30 Calcium 7.3 mg/dL (8.5-10.1) L 12/24/18 06:00 Phosphorus 4.9 mg/dL (2.5-4.9) 12/22/18 05:30 Magnesium 1.8 mg/dL (1.8-2.4) 12/24/18 06:00 Total Bilirubin 0.3 mg/dL (0.2-1) 12/24/18 06:00 AST 13 U/L (15-37) L 12/24/18 06:00 ALT 11 U/L (13-61) L 12/24/18 06:00 Alkaline Phosphatase 52 U/L (45-117) 12/24/18 06:00 Creatine Kinase 26 U/L (26-192) 12/21/18 08:49 Troponin I 0.02 ng/ml (0.00-0.05) 12/21/18 08:49 Total Protein 3.4 g/dl (6.4-8.2) L 12/24/18 06:00 Albumin 1.5 g/dl (3.4-5.0) L 12/24/18 06:00 Lipase 98 U/L (73-393) 12/21/18 08:49 PE: Gen; awake, mildly confused, no distress HEENT: supple, PERRL PULM: clear anterior CV: tachy, unable to appreciate MRG ABD: midline incision CDI, hypoactive but present BS EXT: no edema NEURO: non focal, mildly confused as to events A/P 83 y/o woman with LBO s/p exlap with Dr Navarro now with post op shock/sepsis and afib/flutter with RVR requiring Amio gtt -cont IV abx -amio gtt as per Cards, may need to try other rate control -gentle fluid -advance diet as per Dr Navarro -scd and PPI for prophy -DNR/DNI -Ok for floor once off [facility]io gtt [id number]
[2018-12-24 09:46] LABS: HEMATOCRIT 40.1 % (32.4-45.2); HEMOGLOBIN 12.6 GM/dL (10.7-15.3); MCH 24.2 pg (25.7-33.7); MCHC 31.6 g/dl (32.0-36.0); MEAN CELL VOLUME 76.6 fl (80-96); MEAN PLT VOLUME 9.6 fl (7.5-11.1); PLATELET COUNT 327 K/MM3 (134-434); RBC 5.23 M/mm3 (3.60-5.2); RDW 19.8 % (11.6-15.6); WHITE BLOOD COUNT 23.3 K/mm3 (4.0-10.0)
[2018-12-24] MEDS ORDERED: PT OWN MED DRAWER 7, Y5N ONE (10:15)
[2018-12-24] MEDS: METOPROLOL TARTRATE 5 MG/5 ML VIAL IVPUSH SCH ×3 (10:32→23:19)
[2018-12-24] MEDS: PANTOPRAZOLE SODIUM 40 MG VIAL IVPUSH SCH (10:32)
[2018-12-24] MEDS: KCL 10 MEQ IVPB 10 MEQ/100 ML INFUS.BAG IVPB SCH ×2 (11:00→12:00)
[2018-12-24] MEDS: FLUTICASONE PROP 0.05% 16 GM NASAL SPRAY NS SCH (11:13)
[2018-12-24] MEDS: ACETAMINOPHEN 1000 MG/100 ML VIAL (NON FORMULARY) IVPB PRN (11:31)
--- NOTE | 2018-12-24 11:39 | PN ---
Progress Note (short form) - Note Progress Note: s: pressors titrated off, still with aflutter/rvr on amio gtt. no cp sob palps dizzy o: Vital Signs Temp 97.8 F 12/24/18 10:00 Pulse 145 H 12/24/18 11:00 Resp 30 H 12/24/18 11:00 BP 103/84 12/24/18 11:00 Pulse Ox 98 12/24/18 09:00 Intake & Output 12/23/18 12/23/18 12/24/18 11:59 23:59 12:59 Intake Total 3249 3022.9 2864 Output Total 350 175 100 Balance 2899 2847.9 2764 Weight 185 lb Intake: IV 3249 2672.9 2864 Amiodarone drip 224.9 268 LACTATED RINGERS SOLUTION 1000 1,000 ml In 1,000 ml @ 100 mls/hr IV ASDIR OBDULIO Rx#:[id number] LR 1000cc IV bolus 1000 2500 Levophed - 8,000 Mcg In 207 348 96 D5w - 492 ml @ 5 MCG/MIN 18.75 mls/hr IV TITR OBDULIO Rx#:[id number] Normal Saline - 1,000 ml 3000 100 @ 100 mls/hr IV ASDIR OBDULIO Rx#:[id number] Pitressin - 50 Units In 42 Normal Saline - 97.5 ml @ 2 UNITS/HR 4 mls/hr IVPB ASDIR OBDULIO Rx#: [id number] IVPB 350 Oral 0 Output: Gastric Drainage 250 Urine 100 175 100 Andre 100 175 100 Other: Voiding Method Indwelling Catheter Indwelling Catheter Indwelling Catheter Bowel Movement No No No Height 5 ft 6 in Body Mass Index (BMI) 29.8 nad, no jvd irreg s1s2 no mrg cta bl nl eff awake, alert pos dp pt no jaundice diaphoresis no le e/c/c abd nt nd pos bs Current Medications Acetaminophen (Ofirmev Injection -) 1,000 mg IVPB Q6H PRN PRN Reason: PAIN LEVEL 4 - 6 Last Admin: 12/24/18 11:31 Dose: 1,000 mg Diltiazem HCl (Cardizem Injection -) 10 mg IVPUSH Q4H PRN PRN Reason: TACHYCARDIA Last Admin: 12/22/18 13:26 Dose: 10 mg Fluticasone Propionate (Flonase -) 2 spray NS DAILY OBDULIO Last Admin: 12/24/18 11:13 Dose: 2 spray Lactated Ringer's (Lactated Ringers Solution) 1,000 ml in 1,000 mls @ 100 mls/ hr IV ASDIR OBDULIO Last Admin: 12/24/18 03:45 Dose: 100 mls/hr Piperacillin Sod/Tazobactam (Sod 2.25 gm/ Dextrose) 50 mls @ 100 mls/hr IVPB Q6H-IV OBDULIO Last Admin: 12/24/18 09:30 Dose: 100 mls/hr Metoprolol Tartrate (Lopressor Injection -) 5 mg IVPUSH Q4H-IV OBDULIO Last Admin: 12/24/18 10:32 Dose: Not Given Ondansetron HCl (Zofran Injection) 4 mg IVPUSH Q6H PRN PRN Reason: NAUSEA Last Admin: 12/22/18 12:39 Dose: 4 mg Pantoprazole Sodium (Protonix Iv) 40 mg IVPUSH DAILY OBDULIO Last Admin: 12/24/18 10:32 Dose: 40 mg Laboratory Last Values WBC 11.1 K/mm3 (4.0-10.0) H 12/24/18 07:02 RBC 3.91 M/mm3 (3.60-5.2) 12/24/18 07:02 Hgb 9.6 GM/dL (10.7-15.3) L 12/24/18 07:02 Hct 29.9 % (32.4-45.2) L D 12/24/18 07:02 MCV 76.5 fl (80-96) L 12/24/18 07:02 MCH 24.4 pg (25.7-33.7) L 12/24/18 07:02 MCHC 32.0 g/dl (32.0-36.0) 12/24/18 07:02 RDW 19.4 % (11.6-15.6) H 12/24/18 07:02 Plt Count 115 K/MM3 (134-434) L D 12/24/18 07:02 MPV 9.3 fl (7.5-11.1) 12/24/18 07:02 Absolute Neuts (auto) 21.8 K/mm3 (1.5-8.0) H 12/23/18 09:01 Neutrophils % 87.0 % (42.8-82.8) H 12/23/18 09:01 Neutrophils % (Manual) 80.2 % (42.8-82.8) 12/23/18 09:01 Band Neutrophils % 8.9 % 12/23/18 09:01 Lymphocytes % 7.1 % (8-40) L D 12/23/18 09:01 Lymphocytes % (Manual) 3.0 % (8-40) L 12/23/18 09:01 Monocytes % 5.7 % (3.8-10.2) 12/23/18 09:01 Monocytes % (Manual) 7 % (3.8-10.2) 12/23/18 09:01 Eosinophils % 0.0 % (0-4.5) D 12/23/18 09:01 Eosinophils % (Manual) 0.0 % (0-4.5) 12/23/18 09:01 Basophils % 0.2 % (0-2.0) 12/23/18 09:01 Basophils % (Manual) 0.0 % (0-2.0) 12/23/18 09:01 Myelocytes % (Man) 0 % (0-2) 12/23/18 09:01 Promyelocytes % (Man) 0 % (0-2) 12/23/18 09:01 Blast Cells % (Manual) 0 % (0-0) 12/23/18 09:01 Nucleated RBC % 0 % (0-0) 12/23/18 09:01 Metamyelocytes 0 % (0-2) 12/23/18 09:01 Hypochromia 0 12/23/18 09:01 Platelet Estimate Normal 12/23/18 09:01 Polychromasia 1+ 12/23/18 09:01 Poikilocytosis 1+ 12/23/18 09:01 Anisocytosis 1+ 12/23/18 09:01 Microcytosis 1+ 12/23/18 09:01 Macrocytosis 0 12/23/18 09:01 Tesfaye Cells 2+ 12/23/18 09:01 PT with INR 13.40 SEC (9.7-13.0) H 12/21/18 09:35 INR 1.13 (0.83-1.09) H 12/21/18 09:35 Anticoagulation Therapy No Result Required. 12/23/18 09:05 Puncture Site Right radial 12/23/18 09:05 ABG pH 7.23 (7.35-7.45) L* 12/23/18 09:05 ABG pCO2 at Pt Temp 43.6 mmHg (35-45) 12/23/18 09:05 ABG pO2 at Pt Temp 212.0 mmHg (68-100) H* 12/23/18 09:05 ABG HCO3 18.0 meq/L (22-26) L 12/23/18 09:05 ABG O2 Sat (Measured) 98.9 % (90-98.9) 12/23/18 09:05 ABG O2 Content 16.6 % vol (15-22) 12/23/18 09:05 ABG Base Excess No Result Required. 12/23/18 09:05 Ronald Test No Result Required. 12/23/18 09:05 O2 Delivery Device No Result Required. 12/23/18 09:05 Oxygen Flow Rate No Result Required. 12/23/18 09:05 Vent Mode No Result Required. 12/23/18 09:05 Vent Rate No Result Required. 12/23/18 09:05 Mechanical Rate No Result Required. 12/23/18 09:05 Pressure Support Vent No Result Required. 12/23/18 09:05 Sodium 142 mmol/L (136-145) 12/24/18 06:00 Potassium 3.3 mmol/L (3.5-5.1) L 12/24/18 06:00 Chloride 114 mmol/L (98-107) H 12/24/18 06:00 Carbon Dioxide 22 mmol/L (21-32) 12/24/18 06:00 Anion Gap 6 MMOL/L (8-16) L 12/24/18 06:00 BUN 18 mg/dL (7-18) 12/24/18 06:00 Creatinine 1.0 mg/dL (0.55-1.3) 12/24/18 06:00 Creat Clearance w eGFR 52.69 (>60) 12/24/18 06:00 Random Glucose 99 mg/dL (74-106) 12/24/18 06:00 Hemoglobin A1c % 5.6 % (4.2-6.3) 12/22/18 05:30 Lactic Acid 2.0 mmol/L (0.4-2.0) 12/23/18 00:30 Calcium 7.3 mg/dL (8.5-10.1) L 12/24/18 06:00 Phosphorus 4.9 mg/dL (2.5-4.9) 12/22/18 05:30 Magnesium 1.8 mg/dL (1.8-2.4) 12/24/18 06:00 Total Bilirubin 0.3 mg/dL (0.2-1) 12/24/18 06:00 AST 13 U/L (15-37) L 12/24/18 06:00 ALT 11 U/L (13-61) L 12/24/18 06:00 Alkaline Phosphatase 52 U/L (45-117) 12/24/18 06:00 Creatine Kinase 26 U/L (26-192) 12/21/18 08:49 Troponin I 0.02 ng/ml (0.00-0.05) 12/21/18 08:49 Total Protein 3.4 g/dl (6.4-8.2) L 12/24/18 06:00 Albumin 1.5 g/dl (3.4-5.0) L 12/24/18 06:00 Lipase 98 U/L (73-393) 12/21/18 08:49 Urine Color [place] 12/22/18 01:25 Urine Appearance Cloudy 12/22/18 01:25 Urine pH 5.0 (5.0-8.0) 12/22/18 01:25 Ur Specific [place] 1.028 (1.010-1.035) 12/22/18 01:25 Urine Protein 2+ (NEGATIVE) H 12/22/18 01:25 Urine Glucose (UA) Negative (NEGATIVE) 12/22/18 01:25 Urine Ketones Trace (NEGATIVE) H 12/22/18 01:25 Urine Blood Negative (NEGATIVE) 12/22/18 01:25 Urine Nitrite Negative (NEGATIVE) 12/22/18 01:25 Urine Bilirubin 4.0 (<2.0 mg/dL) 12/22/18 01:25 Urine Urobilinogen Negative mg/dL (0.2-1.0) 12/22/18 01:25 Ur Leukocyte Esterase Trace (NEGATIVE) 12/22/18 01:25 Urine WBC (Auto) 6 /hpf (3-5) 12/22/18 01:25 Urine RBC (Auto) 1 /hpf (0-3) 12/22/18 01:25 Ur Epithelial Cells Few /HPF (FEW) 12/22/18 01:25 Urine Bacteria Rare /hpf (NONE SEEN) 12/22/18 01:25 Hyaline Casts 39 /lpf 12/22/18 01:25 Urine Mucus Many 12/22/18 01:25 Blood Type O POSITIVE 12/22/18 16:30 Antibody Screen Negative 12/22/18 16:30 ecg: aflutter with 2:1 avb, vr 127, no ischemic changes echo 07/2015: nl lv/rv, no sig valve path tele: aflutter, vr in 130s echo 07/2015: nl lv/rv, no sig valve path cxr: clear lungs est cct 35 mins a/p: 83 f hx dementia, afib/flutter, gerd, htn, tia, sent from [facility] for coffee ground emesis. aflutter: - was on diltiazem 60 mg QID and propranolol 120 mg BID but now npo after surgery for sbo. HR remains elevated and bp was low requiring levo so started amio gtt but HR still remains fast today with no improvement with amio. Will dc amio gtt. BP better today, now off levo and pt has no sxs from RVR so will use prn iv dilt for now until able to take po meds. - cont tele - eliquis on hold for surgery, resume AC when possible. If remains npo can give lovenox. hypotension: -rate control as above -now weaned off levo htn: -monitor off meds given hypotension GIB: -recent admit for GIB, hgb stable here -plans per GI were outpt scopes sbo: -s/p surgery, extubated now
--- NOTE | 2018-12-24 11:54 | EKG ---
Test Reason : Blood Pressure : / mmHG Vent. Rate : 130 BPM Atrial Rate : 260 BPM P-R Int : 000 ms QRS Dur : 066 ms QT Int : 250 ms P-R-T Axes : 227 007 213 degrees QTc Int : 367 ms ATRIAL FLUTTER WITH 2:1 A-V CONDUCTION LOW VOLTAGE QRS ABNORMAL ECG WHEN COMPARED WITH ECG OF 22-DEC-2018 14:20, T WAVE INVERSION MORE EVIDENT IN LATERAL LEADS Confirmed by AMINA COCHRAN, IRINA ([id number]) on 12/24/2018 11:54:19 AM Referred By: NOELLE HARMON Confirmed By:IRINA HUYNH MD
--- NOTE | 2018-12-24 15:39 | PN ---
Progress Note, Physician History of Present Illness: patient stable events noted patient pulled out her line central wbc has trended down comfortable still not making urine - Current Medication List Current Medications: Active Medications Acetaminophen (Ofirmev Injection -) 1,000 mg IVPB Q6H PRN PRN Reason: PAIN LEVEL 4 - 6 Last Admin: 12/24/18 11:31 Dose: 1,000 mg Diltiazem HCl (Cardizem Injection -) 10 mg IVPUSH Q4H PRN PRN Reason: TACHYCARDIA Last Admin: 12/22/18 13:26 Dose: 10 mg Fluticasone Propionate (Flonase -) 2 spray NS DAILY OBDULIO Last Admin: 12/24/18 11:13 Dose: 2 spray Lactated Ringer's (Lactated Ringers Solution) 1,000 ml in 1,000 mls @ 100 mls/ hr IV ASDIR [facility] Last Admin: 12/24/18 03:45 Dose: 100 mls/hr Piperacillin Sod/Tazobactam (Sod 2.25 gm/ Dextrose) 50 mls @ 100 mls/hr IVPB Q6H-IV OBDULIO Last Admin: 12/24/18 14:19 Dose: 100 mls/hr Metoprolol Tartrate (Lopressor Injection -) 5 mg IVPUSH Q4H-IV OBDULIO Last Admin: 12/24/18 10:32 Dose: Not Given Ondansetron HCl (Zofran Injection) 4 mg IVPUSH Q6H PRN PRN Reason: NAUSEA Last Admin: 12/22/18 12:39 Dose: 4 mg Pantoprazole Sodium (Protonix Iv) 40 mg IVPUSH DAILY [facility] Last Admin: 12/24/18 10:32 Dose: 40 mg - Objective Vital Signs: Vital Signs Temperature 97.8 F 12/24/18 10:00 Pulse Rate 145 H 12/24/18 11:00 Respiratory Rate 30 H 12/24/18 11:00 Blood Pressure 103/84 12/24/18 11:00 O2 Sat by Pulse Oximetry (%) 98 12/24/18 09:00 Constitutional: Yes: No Distress, Calm Cardiovascular: Yes: Tachycardia Respiratory: Yes: Regular, CTA Bilaterally Gastrointestinal: Yes: Soft, Other (absent bowel sounds) Musculoskeletal: Yes: WNL Extremities: Yes: WNL Neurological: Yes: Alert Psychiatric: Yes: Alert Labs: CBC, BMP 12/24/18 07:02 12/24/18 06:00 INR, PTT INR 1.13 (0.83-1.09) H 12/21/18 09:35 - ....Imaging Chest X-ray: Report Reviewed, Image Reviewed Assessment/Plan - Problems (1) Colon obstruction Code(s): K56.609 - UNSP INTESTNL OBST, UNSP TO PARTIAL VERSUS COMPLETE OBST (2) Atrial fibrillation with RVR Code(s): I48.91 - UNSPECIFIED ATRIAL FIBRILLATION (3) Dementia Code(s): F03.90 - UNSPECIFIED DEMENTIA WITHOUT BEHAVIORAL DISTURBANCE (4) Esophagitis Code(s): K20.9 - ESOPHAGITIS, UNSPECIFIED (5) GERD (gastroesophageal reflux disease) Code(s): K21.9 - GASTRO-ESOPHAGEAL REFLUX DISEASE WITHOUT ESOPHAGITIS (6) Hypertension Code(s): I10 - ESSENTIAL (PRIMARY) HYPERTENSION Qualifiers: Hypertension type: essential hypertension Qualified Code(s): I10 - Essential (primary) hypertension plan continue current abx watch urine out put hydration all cx results noted await for finalazation rest as per icu cc 40 min
[2018-12-25] MEDS ORDERED: PIPERACILLIN/TAZOBACTAM 2.25 GM VIAL IVPB ONE ×4 (02:05→20:49)
[2018-12-25] MEDS ORDERED: DEXTROSE 5%-WATER - 50 ML IVPB ONE ×4 (02:05→20:49)
[2018-12-25] MEDS: PIPERACILLIN/TAZOB 2.25 GM 2.25 GM in DEXTROSE 5%-WATER - 50 ML IVPB SCH ×4 (02:19→20:52)
[2018-12-25] MEDS: METOPROLOL TARTRATE 5 MG/5 ML VIAL IVPUSH SCH ×3 (02:39→09:11)
[2018-12-25] MEDS: LACTATED RINGERS SOLUTION 1,000 ML/1,000 ML INFUS.BAG IV SCH (05:24)
[2018-12-25] MEDS ORDERED: NOREPINEPHRINE BITARTRATE 4,000 MCG in DEXTROSE 5%-WATER - 496 ML IV SCH (06:45)
[2018-12-25 08:12] LABS: BASO % 0.2 % (0-2.0); EOS % 0.2 % (0-4.5); HEMATOCRIT 31.1 % (32.4-45.2); HEMOGLOBIN 9.9 GM/dL (10.7-15.3); LYMPH % 7.8 % (8-40); MCH 24.3 pg (25.7-33.7); MCHC 31.8 g/dl (32.0-36.0); MEAN CELL VOLUME 76.4 fl (80-96); MEAN PLT VOLUME 9.3 fl (7.5-11.1); MONO % 5.2 % (3.8-10.2); NEUT % 86.6 % (42.8-82.8); PLATELET COUNT 119 K/MM3 (134-434); RBC 4.07 M/mm3 (3.60-5.2); RDW 19.6 % (11.6-15.6); WHITE BLOOD COUNT 13.6 K/mm3 (4.0-10.0)
[2018-12-25] MEDS: ACETAMINOPHEN 1000 MG/100 ML VIAL (NON FORMULARY) IVPB PRN (08:13)
[2018-12-25 08:43] LABS: ALBUMIN 1.6 g/dl (3.4-5.0); ALK PHOS 67 U/L (45-117); ANION GAP 8 MMOL/L (8-16); BILIRUBIN,TOTAL 0.4 mg/dL (0.2-1); BLOOD UREA NITROGEN 17 mg/dL (7-18); CALCIUM 7.3 mg/dL (8.5-10.1); CHLORIDE 113 mmol/L (98-107); CO2 21 mmol/L (21-32); CREATININE 0.7 mg/dL (0.55-1.3); GLUCOSE,RANDOM 71 mg/dL (74-106); POTASSIUM 3.6 mmol/L (3.5-5.1); SGOT/AST 15 U/L (15-37); SGPT/ALT 12 U/L (13-61); SODIUM 142 mmol/L (136-145); TOT PROT 3.9 g/dl (6.4-8.2)
--- NOTE | 2018-12-25 08:52 | PN ---
Progress Note, Physician Chief Complaint: LBO History of Present Illness: 83 yo female PMH reflux, esophagitis, dementia, hallucinations, ataxia, HTN, benign neoplasm of cerebral meninges, who presents to the emergency department via EMS from care home due to nausea and vomiting that started today. She has been stable since surgery. - Current Medication List Current Medications: Active Medications Diltiazem HCl (Cardizem Injection -) 10 mg IVPUSH Q4H PRN PRN Reason: TACHYCARDIA Last Admin: 12/22/18 13:26 Dose: 10 mg Fluticasone Propionate (Flonase -) 2 spray NS DAILY OBDULIO Last Admin: 12/24/18 11:13 Dose: 2 spray Piperacillin Sod/Tazobactam (Sod 2.25 gm/ Dextrose) 50 mls @ 100 mls/hr IVPB Q6H-IV OBDULIO Last Admin: 12/25/18 08:18 Dose: 100 mls/hr Metoprolol Tartrate (Lopressor Injection -) 5 mg IVPUSH Q4H-IV OBDULIO Last Admin: 12/25/18 05:24 Dose: Not Given Ondansetron HCl (Zofran Injection) 4 mg IVPUSH Q6H PRN PRN Reason: NAUSEA Last Admin: 12/22/18 12:39 Dose: 4 mg Pantoprazole Sodium (Protonix Iv) 40 mg IVPUSH DAILY [facility] Last Admin: 12/24/18 10:32 Dose: 40 mg - Objective Vital Signs: Vital Signs Temperature 98.3 F 12/25/18 05:00 Pulse Rate 144 H 12/25/18 08:06 Respiratory Rate 24 H 12/25/18 08:06 Blood Pressure 107/67 12/25/18 08:06 O2 Sat by Pulse Oximetry (%) 99 12/25/18 08:36 Constitutional: Yes: Well Nourished, No Distress, Calm Eyes: Yes: Conjunctiva Clear, EOM Intact HENT: Yes: Atraumatic, Normocephalic Neck: Yes: Supple, Trachea Midline Cardiovascular: Yes: Regular Rate and Rhythm, S1, S2 Respiratory: Yes: Regular, CTA Bilaterally Gastrointestinal: Yes: Normal Bowel Sounds, Soft, Tenderness ...Rectal Exam: Yes: Deferred Genitourinary: No: CVA Tenderness - Left, CVA Tenderness - Right Extremities: No: Cool, Cyanosis Edema: No Edema: LUE: Trace, RUE: Trace, LLE: Trace, RLE: Trace Peripheral Pulses WNL: Yes Peripheral Pulses: Left Radial: 1+, Right Radial: 1+, Left Doralis Pedis: 1+, Right Dorsalis Pedis: 1+, Left Femoral: 1+, Right Femoral: 1+ Integumentary: No: Jaundice, Skin Tear Wound/Incision: Yes: Clean/Dry, Well Approximated, Open to air Neurological: Yes: Alert, Oriented Psychiatric: Yes: Alert, Oriented Labs: CBC, BMP 12/25/18 07:50 12/25/18 07:50 INR, PTT INR 1.13 (0.83-1.09) H 12/21/18 09:35 Problem List - Problems (1) Colon obstruction Assessment/Plan: 83yo female returned from [place] the next morning after discharge with feculent emesis and an identified large bowel obstruction suspicious for malignancy. this may be a missed diagnosis from previous admission. POD#4 s/p Right hemicolectomy for an obstructing colon mass ICU management NPO and IVF hydration NGT to LCWS IV antibiotics X 24 hours trend labs Early mobilization OOB encourage IS ID consult for continued antibiotics This patient is critically ill. Time spent reviewing chart, examining patient, talking with providers and/or family and documentation is 35 minutes. Code(s): K56.609 - UNSP INTESTNL OBST, UNSP TO PARTIAL VERSUS COMPLETE OBST (2) Atrial fibrillation with RVR Code(s): I48.91 - UNSPECIFIED ATRIAL FIBRILLATION (3) Dementia Code(s): F03.90 - UNSPECIFIED DEMENTIA WITHOUT BEHAVIORAL DISTURBANCE (4) Esophagitis Code(s): K20.9 - ESOPHAGITIS, UNSPECIFIED (5) GERD (gastroesophageal reflux disease) Code(s): K21.9 - GASTRO-ESOPHAGEAL REFLUX DISEASE WITHOUT ESOPHAGITIS (6) Hypertension Code(s): I10 - ESSENTIAL (PRIMARY) HYPERTENSION Qualifiers: Hypertension type: essential hypertension Qualified Code(s): I10 - Essential (primary) hypertension
--- NOTE | 2018-12-25 09:04 | PN ---
Physical Exam: SUBJECTIVE: Patient seen and examined 83 year old female with PMH atrial fibrillation on Eliquis, GERD, esophagitis, dementia, hallucinations, ataxia, HTN, benign neoplasm of cerebral meninges, who presents to the emergency department via EMS from [facility] 12/21/18 due to nausea and vomiting. Pt was in atrial fibrillation with RVR at presentation. Pt was recently admitted to [facility] 12/13/18-12/20/18 for coffee ground emesis, EGD was negative, colonoscopy was planned for outpatient secondary to electrolyte imbalance and tachycardia. Pt had right hemicolectomy for SBO . Post surgery pt was tachycardic and hypotensive, shock was presume, pt was covered with Zosyn. Pt was placed on levophed, switched to Amiodarone. Pt was DC on pressors 12/24/17, switched from Amiodarone to IV Diltiazem pushes. Pt showed no response to attempted rate control. Pt reported today mild diffuse abdominal pain, reported no passing of gas or bowel movements. Pt denied chest pain, palpitations, shortness of breath. Abdominal CT w/o contrast 12/21/18 shows diffuse to moderate marked dilatation of the small bowel including the terminal ileum with significant dilatation of the cecum and proximal ascending colon up to a point of transition seen in the proximal/mid ascending colon where there is suggestion of wall thickening and collapse of the rest of the colon consistent with obstruction. OBJECTIVE: Vital Signs Period Temp Pulse Resp BP Sys/[place] Pulse Ox Last 24 Hr 97.8 F-98.4 F 136-145 18-30 85-113/48-84 98-99 Vital Signs Temperature 98.3 F 12/25/18 05:00 Pulse Rate 144 H 12/25/18 08:06 Respiratory Rate 24 H 12/25/18 08:06 Blood Pressure 107/67 12/25/18 08:06 O2 Sat by Pulse Oximetry (%) 99 12/25/18 08:36 GENERAL: The patient is awake, alert, and fully oriented, in no acute distress. HEAD: Normal with no signs of trauma. EYES: PERRL, extraocular movements intact, sclera anicteric, conjunctiva clear. No ptosis. ENT: Ears normal, nares patent, oropharynx clear without exudates, moist mucous membranes. NECK: Trachea midline, full range of motion, supple. LUNGS: Breath sounds equal, clear to auscultation bilaterally, no wheezes, no crackles, no accessory muscle use. HEART: tachycardic. Regular rate and rhythm, S1, S2 without murmur, rub or gallop. ABDOMEN: Soft, nontender, nondistended, normoactive bowel sounds, no guarding, no rebound, no hepatosplenomegaly, no masses. midline vertical surgical incision site noted, healing well, no surrounding erythema, no drainage, healing well. EXTREMITIES: 2+ pulses, warm, well-perfused, no edema. NEUROLOGICAL: Cranial nerves II through XII grossly intact. Normal speech, gait not observed. oriented to person and place. mildly confused. PSYCH: Normal mood, normal affect. SKIN: Warm, dry, normal turgor, no rashes or lesions noted Laboratory Results - last 24 hr 12/22/18 12/25/18 12/25/18 18:45 07:50 07:50 WBC 23.3 H 13.6 H RBC 5.23 H 4.07 Hgb 12.6 9.9 L Hct 40.1 31.1 L MCV 76.6 L 76.4 L MCH 24.2 L 24.3 L MCHC 31.6 L 31.8 L RDW 19.8 H 19.6 H Plt Count 327 119 L MPV 9.6 9.3 Absolute Neuts (auto) 11.8 H Neutrophils % 86.6 H Lymphocytes % 7.8 L Monocytes % 5.2 Eosinophils % 0.2 D Basophils % 0.2 Nucleated RBC % 0 Sodium 142 Potassium 3.6 Chloride 113 H Carbon Dioxide 21 Anion Gap 8 BUN 17 Creatinine 0.7 Creat Clearance w eGFR > 60 Random Glucose 71 L Calcium 7.3 L Total Bilirubin 0.4 AST 15 ALT 12 L Alkaline Phosphatase 67 Total Protein 3.9 L Albumin 1.6 L Active Medications Generic Name Dose Route Start Last Admin Trade Name Freq PRN Reason Stop Dose Admin Diltiazem HCl 10 mg 12/22/18 11:37 12/22/18 13:26 Cardizem Injection - IVPUSH 10 mg Q4H PRN Administration TACHYCARDIA Fluticasone Propionate 2 spray 12/22/18 10:00 12/24/18 11:13 Flonase - NS 2 spray DAILY OBDULIO Administration Piperacillin Sod/Tazobactam 50 mls @ 100 mls/hr 12/23/18 21:00 12/25/18 08:18 Sod 2.25 gm/ Dextrose IVPB 100 mls/hr Q6H-IV OBDULIO Administration Metoprolol Tartrate 5 mg 12/21/18 19:30 12/25/18 05:24 Lopressor Injection - IVPUSH Not Given Q4H-IV OBDULIO Ondansetron HCl 4 mg 12/21/18 23:40 12/22/18 12:39 Zofran Injection IVPUSH 4 mg Q6H PRN Administration NAUSEA Pantoprazole Sodium 40 mg 12/21/18 19:15 12/24/18 10:32 Protonix Iv IVPUSH 40 mg DAILY OBDULIO Administration ASSESSMENT/PLAN: #SBO -Post op right hemicolectomy day 3 -postop hypotension s/p bowel surgery -Obstructive ascending colon mass -Pending CA-125 and CEA labs -BPs remain soft -Pain control: morphine 2 mg IV q4H PRN #Atrial flutter -Pt was tachycardic and hypotensive in AM -EKG shows atrial flutter 2:1 -Home diltiazem 60 mg QID and propranolol 120 mg BID unable to control at presentation, pt switched to amnio and placed on levophed for hypotension -No change with amnio over the weekend -No HR response today to IV diltiazem pushes, SBP dropped to 80s -Cardiology recs starting chronotropic vasoconstrictor pressor with low dose PO and IV propranolol for HR control in setting of hypotension -Norepinephrine ordered for SBP<100 -Propranolol 40 mg PO TID PO -Propranolol 1 mg IV push Q1 hour -Eliquis continuing to be held, plan to resume per surgery -On Zosyn for suspected septic shock s/p surgery #HTN -Monitor off meds given hypotension #GIB -Recent admit for GIB, hgb stable here -Plans per GI for outpt scope -Protonix IV 40 mg daily -Zofran 4 mg IV Q6 PRN #GERD -Protonix IV 40 mg daily #Hypomagnesium -Resolved 12/24/18 #FEN -No cervantes catheter -No IV fluids -Left sided IJ line placed 12/22/18 #DIET -NPO x4 days -Speech and swallow eval ordered #DISPO - MICU Visit type - Emergency Visit Emergency Visit: Yes ED Registration Date: 12/22/18 Care time: The patient presented to the Emergency Department on the above date and was hospitalized for further evaluation of their emergent condition. - New Patient This patient is new to me today: Yes Date on this admission: 12/25/18 - Critical Care Critical Care patient: Yes Total Critical Care Time (in minutes): 35 Critical Care Statement: The care of this patient involved high complexity decision making to prevent further life threatening deterioration of the patient 's condition and/or to evaluate & treat vital organ system(s) failure or risk of failure. - Discharge Referral Referred to [facility] Med [facility] No
--- NOTE | 2018-12-25 09:06 | PN ---
Physical Exam: SUBJECTIVE: Patient seen and examined at the bedside. feels well, denies pain. not passing gas per patient OBJECTIVE: POD #2 low urine output, bun/creat normal Vital Signs Period Temp Pulse Resp BP Sys/Germain Pulse Ox Last 24 Hr 97.8 F-98.4 F 136-145 18-30 85-113/48-84 98-99 GENERAL: The patient is awake, in no acute distress. HEAD: Normal with no signs of trauma. EYES: PERRL, extraocular movements intact, sclera anicteric, conjunctiva clear. No ptosis. ENT: Ears normal, nares patent, dry mucous membranes. NECK: Trachea midline, full range of motion, supple. - large purple wound on right side of her neck, likely from pulling out her IV site. LUNGS: Breath sounds equal, clear to auscultation bilaterally, no wheezes, no crackles HEART: afib rvr 140s, bp better ABDOMEN: surgical site cdi EXTREMITIES: no edema. NEUROLOGICAL: Normal speech, gait not observed. PSYCH: Normal mood, normal affect. Laboratory Results - last 24 hr 12/22/18 12/25/18 12/25/18 18:45 07:50 07:50 WBC 23.3 H 13.6 H RBC 5.23 H 4.07 Hgb 12.6 9.9 L Hct 40.1 31.1 L MCV 76.6 L 76.4 L MCH 24.2 L 24.3 L MCHC 31.6 L 31.8 L RDW 19.8 H 19.6 H Plt Count 327 119 L MPV 9.6 9.3 Absolute Neuts (auto) 11.8 H Neutrophils % 86.6 H Lymphocytes % 7.8 L Monocytes % 5.2 Eosinophils % 0.2 D Basophils % 0.2 Nucleated RBC % 0 Sodium 142 Potassium 3.6 Chloride 113 H Carbon Dioxide 21 Anion Gap 8 BUN 17 Creatinine 0.7 Creat Clearance w eGFR > 60 Random Glucose 71 L Calcium 7.3 L Total Bilirubin 0.4 AST 15 ALT 12 L Alkaline Phosphatase 67 Total Protein 3.9 L Albumin 1.6 L Active Medications Generic Name Dose Route Start Last Admin Trade Name Freq PRN Reason Stop Dose Admin Diltiazem HCl 10 mg 12/22/18 11:37 12/22/18 13:26 Cardizem Injection - IVPUSH 10 mg Q4H PRN Administration TACHYCARDIA Fluticasone Propionate 2 spray 12/22/18 10:00 12/24/18 11:13 Flonase - NS 2 spray DAILY OBDULIO Administration Piperacillin Sod/Tazobactam 50 mls @ 100 mls/hr 12/23/18 21:00 12/25/18 08:18 Sod 2.25 gm/ Dextrose IVPB 100 mls/hr Q6H-IV OBDULIO Administration Metoprolol Tartrate 5 mg 12/21/18 19:30 12/25/18 05:24 Lopressor Injection - IVPUSH Not Given Q4H-IV OBDULIO Ondansetron HCl 4 mg 12/21/18 23:40 12/22/18 12:39 Zofran Injection IVPUSH 4 mg Q6H PRN Administration NAUSEA Pantoprazole Sodium 40 mg 12/21/18 19:15 12/24/18 10:32 Protonix Iv IVPUSH 40 mg DAILY OBDULIO Administration ASSESSMENT/PLAN: Patient is an 83 year old female with past medical history of reflux, esophagitis, dementia, hallucinations, ataxia, HTN, benign neoplasm of cerebral meninges, who presents to the emergency department via EMS from alf due to nausea and vomiting. She was evaluated in the ED and was noted to be with afib with RVR . Patient is a poor historian and confused at baseline. She was mostly recently at [facility] between 12/13/2018 and 12/20/2018 for vomitus with coffee ground emesis. She is s/p EGD which was negative. A colonoscopy was not done secondary to electrolyte imbalance and persistent tachycardia. She was discharged and recommended to follow up with GI outpatient for a colonscopy. Imaging: Abdominal CT w/o contrast 12/21/18 shows diffuse to moderate marked dilatation of the small bowel including the terminal ileum with significant dilatation of the cecum and proximal ascending colon up to a point of transition seen in the proximal/mid ascending colon where there is suggestion of wall thickening and collapse of the rest of the colon consistent with obstruction. EKG: Afib, Aflutter with 2:1 AV conduction, HR 120s tele: afib rvr 140s GI: Acute bowel obstructions seen on Abd CT s/p exp lap for SBO POD 2 Post Op Care: incentive spirometer when able to perform IVF hydration advance diet per surgery monitor pain SCDs ICU Care ID: Septic shock, resolved on zosyn. bp more stable. now off pressors. care per icu team do not intubate Renal Low urine output, normal bun/creat hypotension improving Renal consulted Cardiac Uncontrolled afib with RVR started on amiodorone ivpb Hypertension, now hypotensive off pessors. bp low stable fen IVF NS @ 75cc/hr NPO Protonix prophy physical therapy SCDs and CHLOE stockings hold eliquis dnr/dni Visit type - Emergency Visit Emergency Visit: Yes ED Registration Date: 12/22/18 Care time: The patient presented to the Emergency Department on the above date and was hospitalized for further evaluation of their emergent condition. - New Patient This patient is new to me today: No - Critical Care Critical Care patient: Yes Total Critical Care Time (in minutes): 40 Critical Care Statement: The care of this patient involved high complexity decision making to prevent further life threatening deterioration of the patient 's condition and/or to evaluate & treat vital organ system(s) failure or risk of failure. - Discharge Referral Referred to [facility] Med [facility] No
[2018-12-25] MEDS: PANTOPRAZOLE SODIUM 40 MG VIAL IVPUSH SCH (09:10)
[2018-12-25] MEDS: FLUTICASONE PROP 0.05% 16 GM NASAL SPRAY NS SCH ×2 (09:12→09:18)
[2018-12-25] MEDS ORDERED: SODIUM CHLORIDE 1,000 ML IV SCH (09:30)
[2018-12-25] MEDS: SODIUM CHLORIDE 1,000 ML IV SCH ×2 (09:55→18:17)
[2018-12-25] MEDS: dilTIAZem HCL 50 MG/10 ML - 10 ML VIAL IVPUSH PRN (10:13)
--- NOTE | 2018-12-25 10:22 | PN ---
Progress Note, Physician Chief Complaint: abd pain History of Present Illness: denies cp, sob, palpit. belly hurts when she moves - Current Medication List Current Medications: Active Medications Diltiazem HCl (Cardizem Injection -) 10 mg IVPUSH Q4H PRN PRN Reason: TACHYCARDIA Last Admin: 12/25/18 10:13 Dose: 10 mg Fluticasone Propionate (Flonase -) 2 spray NS DAILY OBDULIO Last Admin: 12/25/18 09:18 Dose: 2 spray Piperacillin Sod/Tazobactam (Sod 2.25 gm/ Dextrose) 50 mls @ 100 mls/hr IVPB Q6H-IV OBDULIO Last Admin: 12/25/18 08:18 Dose: 100 mls/hr Sodium Chloride (Normal Saline -) 1,000 mls @ 100 mls/hr IV ASDIR OBDULIO Last Admin: 12/25/18 09:55 Dose: 100 mls/hr Metoprolol Tartrate (Lopressor Injection -) 5 mg IVPUSH Q4H-IV OBDULIO Last Admin: 12/25/18 09:11 Dose: 5 mg Ondansetron HCl (Zofran Injection) 4 mg IVPUSH Q6H PRN PRN Reason: NAUSEA Last Admin: 12/22/18 12:39 Dose: 4 mg Pantoprazole Sodium (Protonix Iv) 40 mg IVPUSH DAILY OBDULIO Last Admin: 12/25/18 09:10 Dose: 40 mg - Objective Vital Signs: Vital Signs Temperature 98.5 F 12/25/18 10:15 Pulse Rate 137 H 12/25/18 10:15 Respiratory Rate 22 H 12/25/18 10:15 Blood Pressure 94/60 12/25/18 10:15 O2 Sat by Pulse Oximetry (%) 99 12/25/18 08:36 Constitutional: Yes: Well Nourished, No Distress, Calm Cardiovascular: Yes: Regular Rate and Rhythm, S1, S2. No: Gallop, Murmur Respiratory: Yes: Regular, CTA Bilaterally (anteriorly). No: Accessory Muscle Use, Rales, Wheezes Extremities: No: Cold Edema: No Neurological: Yes: Alert, Oriented Psychiatric: No: Agitated Labs: CBC, BMP 12/25/18 07:50 12/25/18 07:50 INR, PTT INR 1.13 (0.83-1.09) H 12/21/18 09:35 Assessment/Plan ecg: aflutter with 2:1 avb, vr 127, no ischemic changes echo 07/2015: nl lv/rv, no sig valve path echo 07/2015: nl lv/rv, no sig valve path cxr: clear lungs tele: AFL 2:1 in 140s a/p: 83 f hx dementia, afib/flutter, gerd, htn, tia, sent from [place] for coffee ground emesis. aflutter: - was on diltiazem 60 mg QID and propranolol 120 mg BID at home-->npo postop bowel surgery with tachycardia and hypotensive on levophed-->amio gtt started with persistent tachycardia. hemodynamics improved-->amio d/c'd, prn iv diltiazem ordered - 12/25: H?R 140s, no response to IV diltiazem pushes, SBP dropped to 80s. d/w'd icu team: will start non-chronotropic vasoconstrictor pressor, then initiate low dose PO and IV propranolol trial for HR control. - eliquis held briefly during 12/05 admit with GIB, resumed on discharge with plan for outpt GI scopes. H/H were stable when arrived this time with SBO, eliquis now on hold for surgery-- resume AC when ok with surgery--if remains npo can give lovenox. hypotension: -postop hypotension s/p bowel surgery -BPs remain soft at times 90s. as above htn: -monitor off meds given hypotension GIB: -recent admit for GIB, hgb stable here -plans per GI were outpt scopes sbo: -s/p surgery est time spent in review of data, pt exam, and formulating mgmt plan of potentially life-threatening conditions = 35 min
--- NOTE | 2018-12-25 10:25 | CONSULT ---
Consult - text type - Consultation Consultation Note: Renal consult for Oliguria This is a 83 year old woman with hx of GERD, Dementia, Hypertension, Benigin neoplasm of cerebral maninges who presented with N/V and found to have SBO s/p Ex-lap now with oliguria. Pt is awake and alert in the ICU. Was on IV vasopressers up until yesterday. HR remains elevated. No flank pain, sob, cp, fever, chills, N/V. Andre in place. No contrast exposure noted. No NSAIDs exposure noted. PMHx: as above Allergies: NDKA Family Hx: NC Social Hx: No T/A/D ROS: as per HPI, all other pertinent ros negative Home Medications Medication Instructions Recorded Donepezil HCl [Aricept] 10 mg PO HS 07/23/15 Apixaban [Eliquis -] 5 mg PO BID #60 tablet 07/30/15 Fluticasone Prop 0.05% Nasal 2 spray NS DAILY #1 bottle 07/30/15 [Flonase -] Ferrous Gluconate [Iron] 240 mg PO DAILY 12/13/18 Loratadine [Claritin -] 10 mg PO DAILY 12/13/18 Mirtazapine [Remeron -] 15 mg PO HS 12/13/18 Propranolol HCl [Inderal LA] 120 mg PO BID 12/13/18 Sennosides/Docusate Sodium 2 each PO HS 12/13/18 [Senokot-S Tablet] Diltiazem [Cardizem -] 60 mg PO Q6HPO tablet 12/20/18 propRANOLol HCL [Inderal LA -] 120 mg PO BID capsule.er 12/20/18 Vital Signs Temperature 98.5 F 12/25/18 10:15 Pulse Rate 137 H 12/25/18 10:15 Respiratory Rate 22 H 12/25/18 10:15 Blood Pressure 94/60 12/25/18 10:15 O2 Sat by Pulse Oximetry (%) 99 12/25/18 08:36 Intake & Output 12/22/18 12/23/18 12/24/18 12/25/18 22:59 22:59 23:59 23:59 Intake Total 100 Output Total 200 Balance -100 Weight NAD awake and alert on NC O2 Neck supple, no JVD RRR, No M/R CTA, no rales or wheeze soft. ND, midline incision noted, brook in place no bladder distension No LE edema CBC, BMP 12/25/18 07:50 12/25/18 07:50 Current Medications Diltiazem HCl (Cardizem Injection -) 10 mg IVPUSH Q4H PRN PRN Reason: TACHYCARDIA Last Admin: 12/25/18 10:13 Dose: 10 mg Fluticasone Propionate (Flonase -) 2 spray NS DAILY OBDULIO Last Admin: 12/25/18 09:18 Dose: 2 spray Piperacillin Sod/Tazobactam (Sod 2.25 gm/ Dextrose) 50 mls @ 100 mls/hr IVPB Q6H-IV OBDULIO Last Admin: 12/25/18 08:18 Dose: 100 mls/hr Sodium Chloride (Normal Saline -) 1,000 mls @ 100 mls/hr IV ASDIR OBDULIO Last Admin: 12/25/18 09:55 Dose: 100 mls/hr Metoprolol Tartrate (Lopressor Injection -) 5 mg IVPUSH Q4H-IV OBDULIO Last Admin: 12/25/18 09:11 Dose: 5 mg Ondansetron HCl (Zofran Injection) 4 mg IVPUSH Q6H PRN PRN Reason: NAUSEA Last Admin: 12/22/18 12:39 Dose: 4 mg Pantoprazole Sodium (Protonix Iv) 40 mg IVPUSH DAILY OBDULIO Last Admin: 12/25/18 09:10 Dose: 40 mg 83 year old woman with hx of GERD, Dementia, Hypertension, Benigin neoplasm of cerebral maninges who presented with N/V and found to have SBO s/p Ex-lap now with oliguria. #Oliguria with preserved renal function #SBO s/p Ex-lap #Hypotenson/shock #Anemia #Hx of Hypertension Would start isotonic saline for now with goal MAP > 65 would hold anti hypertensives apart from rate control Rate control for Afib as per cardiology pain control w/o nsaids supportive care Trend renal function and electrolytes daily Thank you Tono Collins DO
[2018-12-25] MEDS ORDERED: dilTIAZem HCL 50 MG/10 ML - 10 ML VIAL IVPUSH PRN (11:27)
[2018-12-25 11:29] LABS: URINE APPEARANCE SLCLOUDY; URINE BILIRUBIN NEGATIVE (<2.0 mg/dL); URINE COLOR YELLOW; URINE GLUCOSE (UA) NEGATIVE (NEGATIVE); URINE KETONE TRACE (NEGATIVE); URINE LEUK ESTERASE NEGATIVE (NEGATIVE); URINE NITRITE NEGATIVE (NEGATIVE); URINE PROTEIN 1+ (NEGATIVE); URINE UROBILINOGEN NEGATIVE mg/dL (0.2-1.0)
[2018-12-25] MEDS ORDERED: PT OWN MED DRAWER 7, Y5N ONE ×3 (12:20→17:16)
--- NOTE | 2018-12-25 12:30 | PN ---
Teaching Attending Note Name of Resident: Kierra Brown ATTENDING PHYSICIAN STATEMENT I saw and evaluated the patient. I reviewed the resident's note and discussed the case with the resident. I agree with the resident's findings and plan as documented. SUBJECTIVE: Patient seen and examined in the ICU. Awake and responsive but mildly confused. Denies CP or SOB. Does reports some mild abdominal discomfort. Borderline hemodynamics with Aflutter @ 150 Intake & Output 12/22/18 12/23/18 12/24/18 12/25/18 22:59 22:59 23:59 23:59 Intake Total 100 Output Total 200 Balance -100 Weight Last Vital Signs Temp Pulse Resp BP Pulse Ox 98.5 F 142 H 21 H 90/56 L 99 12/25/18 10:15 12/25/18 12:23 12/25/18 12:23 12/25/18 12:23 12/25/18 08:36 Active Medications Diltiazem HCl (Cardizem Injection -) 10 mg IVPUSH Q4H PRN PRN Reason: TACHYCARDIA Fluticasone Propionate (Flonase -) 2 spray NS DAILY [facility] Last Admin: 12/25/18 09:18 Dose: 2 spray Piperacillin Sod/Tazobactam (Sod 2.25 gm/ Dextrose) 50 mls @ 100 mls/hr IVPB Q6H-IV OBDULIO Last Admin: 12/25/18 08:18 Dose: 100 mls/hr Sodium Chloride (Normal Saline -) 1,000 mls @ 100 mls/hr IV ASDIR [facility] Last Admin: 12/25/18 09:55 Dose: 100 mls/hr Ondansetron HCl (Zofran Injection) 4 mg IVPUSH Q6H PRN PRN Reason: NAUSEA Last Admin: 12/22/18 12:39 Dose: 4 mg Pantoprazole Sodium (Protonix Iv) 40 mg IVPUSH DAILY [facility] Last Admin: 12/25/18 09:10 Dose: 40 mg Propranolol HCl (Inderal Injection -) 1 mg IVPUSH Q1H PRN PRN Reason: TACHYCARDIA Last Admin: 12/25/18 12:22 Dose: 1 mg Propranolol HCl (Inderal -) 40 mg PO TID [facility] Gen; awake, mildly confused, no distress HEENT: supple, PERRL PULM: clear anterior CV: tachycardia, Aflutter ABD: midline incision CDI, hypoactive but present BS EXT: no edema NEURO: non focal, mildly confused as to events Laboratory Results - last 24 hr 12/25/18 12/25/18 12/25/18 07:50 07:50 10:00 WBC 13.6 H RBC 4.07 Hgb 9.9 L Hct 31.1 L MCV 76.4 L MCH 24.3 L MCHC 31.8 L RDW 19.6 H Plt Count 119 L MPV 9.3 Absolute Neuts (auto) 11.8 H Neutrophils % 86.6 H Lymphocytes % 7.8 L Monocytes % 5.2 Eosinophils % 0.2 D Basophils % 0.2 Nucleated RBC % 0 Sodium 142 Potassium 3.6 Chloride 113 H Carbon Dioxide 21 Anion Gap 8 BUN 17 Creatinine 0.7 Creat Clearance w eGFR > 60 Random Glucose 71 L Calcium 7.3 L Total Bilirubin 0.4 AST 15 ALT 12 L Alkaline Phosphatase 67 Total Protein 3.9 L Albumin 1.6 L Urine Color Urine Appearance Urine pH Ur Specific [place] Urine Protein Urine Glucose (UA) Urine Ketones Urine Blood Urine Nitrite Urine Bilirubin Urine Urobilinogen Ur Leukocyte Esterase Ur Random Sodium 36 L Urine Creatinine 12/25/18 12/25/18 10:00 10:00 WBC RBC Hgb Hct MCV MCH MCHC RDW Plt Count MPV Absolute Neuts (auto) Neutrophils % Lymphocytes % Monocytes % Eosinophils % Basophils % Nucleated RBC % Sodium Potassium Chloride Carbon Dioxide Anion Gap BUN Creatinine Creat Clearance w eGFR Random Glucose Calcium Total Bilirubin AST ALT Alkaline Phosphatase Total Protein Albumin Urine Color Yellow Urine Appearance Slcloudy Urine pH 5.0 Ur Specific [place] 1.031 Urine Protein 1+ H Urine Glucose (UA) Negative Urine Ketones Trace H Urine Blood Negative Urine Nitrite Negative Urine Bilirubin Negative Urine Urobilinogen Negative Ur Leukocyte Esterase Negative Ur Random Sodium Urine Creatinine 165.0 IMP: Sepsis Relative hypotension Rapid AFlutter LBO S/P Exlap Delerium PLAN: ABX per ID D/W Cardiology: Rate control with Propranolol and add NE for hemodynamic support IVF Strict I & O VTE prophylaxis Aspiration precautions Requires ICU monitoring Dr Monroe Critical care time spent in reviewing chart, evaluating patient and formulating plan - 36 minutes.
[2018-12-25] MEDS ORDERED: NOREPINEPHRINE BITARTRATE 4 MG/4 ML ML IV ONE (13:12)
[2018-12-25] MEDS ORDERED: NOREPINEPHRINE BITARTRATE 8,000 MCG in DEXTROSE 5%-WATER - 492 ML IV SCH ×2 (13:15→13:25)
--- NOTE | 2018-12-25 13:40 | PN ---
Progress Note, Physician History of Present Illness: stable doing well no new issues - Current Medication List Current Medications: Active Medications Diltiazem HCl (Cardizem Injection -) 10 mg IVPUSH Q4H PRN PRN Reason: TACHYCARDIA Fluticasone Propionate (Flonase -) 2 spray NS DAILY [facility] Last Admin: 12/25/18 09:18 Dose: 2 spray Piperacillin Sod/Tazobactam (Sod 2.25 gm/ Dextrose) 50 mls @ 100 mls/hr IVPB Q6H-IV OBDULIO Last Admin: 12/25/18 08:18 Dose: 100 mls/hr Sodium Chloride (Normal Saline -) 1,000 mls @ 100 mls/hr IV ASDIR OBD[facility]IO Last Admin: 12/25/18 09:55 Dose: 100 mls/hr Norepinephrine Bitartrate 8, (000 mcg/ Dextrose) 500 mls @ 9.44 mls/hr IV ASDIR [facility]; Protocol Morphine Sulfate (Morphine Sulfate) 2 mg IVPUSH Q4H PRN PRN Reason: PAIN LEVEL 7 - 10 Ondansetron HCl (Zofran Injection) 4 mg IVPUSH Q6H PRN PRN Reason: NAUSEA Last Admin: 12/22/18 12:39 Dose: 4 mg Pantoprazole Sodium (Protonix Iv) 40 mg IVPUSH DAILY [facility] Last Admin: 12/25/18 09:10 Dose: 40 mg Propranolol HCl (Inderal Injection -) 1 mg IVPUSH Q1H PRN PRN Reason: TACHYCARDIA Last Admin: 12/25/18 12:22 Dose: 1 mg Propranolol HCl (Inderal -) 40 mg PO TID [facility] Last Admin: 12/25/18 13:05 Dose: 40 mg - Objective Vital Signs: Vital Signs Temperature 98.5 F 12/25/18 10:15 Pulse Rate 137 H 12/25/18 13:04 Respiratory Rate 20 12/25/18 13:04 Blood Pressure 107/65 12/25/18 13:04 O2 Sat by Pulse Oximetry (%) 99 12/25/18 08:36 Constitutional: Yes: No Distress, Calm Neck: Yes: Supple Cardiovascular: Yes: Regular Rate and Rhythm Respiratory: Yes: Regular, CTA Bilaterally Gastrointestinal: Yes: Normal Bowel Sounds, Soft Musculoskeletal: Yes: WNL Extremities: Yes: WNL Wound/Incision: Yes: Dressing Dry and Intact Neurological: Yes: Alert, Oriented Psychiatric: Yes: Alert, Oriented Labs: CBC, BMP 12/25/18 07:50 12/25/18 07:50 INR, PTT INR 1.13 (0.83-1.09) H 12/21/18 09:35 Assessment/Plan - Problems (1) Colon obstruction Code(s): K56.609 - UNSP INTESTNL OBST, UNSP TO PARTIAL VERSUS COMPLETE OBST (2) Atrial fibrillation with RVR Code(s): I48.91 - UNSPECIFIED ATRIAL FIBRILLATION (3) Dementia Code(s): F03.90 - UNSPECIFIED DEMENTIA WITHOUT BEHAVIORAL DISTURBANCE (4) Esophagitis Code(s): K20.9 - ESOPHAGITIS, UNSPECIFIED (5) GERD (gastroesophageal reflux disease) Code(s): K21.9 - GASTRO-ESOPHAGEAL REFLUX DISEASE WITHOUT ESOPHAGITIS (6) Hypertension Code(s): I10 - ESSENTIAL (PRIMARY) HYPERTENSION Qualifiers: Hypertension type: essential hypertension Qualified Code(s): I10 - Essential (primary) hypertension plan continue current abx watch urine out put hydration all cx results noted rest as per icu monitor wbc--slightly high cc 40 min
[2018-12-25 13:47] LABS: EPI CELLS NONE SEEN /HPF (FEW)
[2018-12-25 13:48] LABS: URINE BACTERIA NONE SEEN /hpf (NONE SEEN)
[2018-12-25] MEDS: MORPHINE SULFATE 2 MG/ML VIAL IVPUSH PRN (14:49)
--- NOTE | 2018-12-25 16:02 | CONSULT ---
Admitting History and Physical - Primary Care Physician PCP: Moshe Hernandez - Admission History of Present Illness: This is a 83 year old woman with hx of GERD, Dementia, Hypertension, Benigin neoplasm of cerebral maninges who presented with N/V and found to have SBO s/p Ex-lap now with oliguria. Pt is awake and alert in the ICU Verbal, confused, forgetful. - Past Medical History [employer]: Yes: Dementia (mild), Other (?meningioma) Cardiovascular: Yes: HTN Gastrointestinal: Yes: GERD ...: No - Smoking History Smoking history: Former smoker Have you smoked in the past 12 months: No - Alcohol/Substance Use Hx Alcohol Use: No History of Substance Use: reports: None - Social History ADL: Support Services History of Recent Travel: No History - Admission Reason For Visit: ATRIAL FIBRILLATION WITH RAPID VENTRICULAR RESPONS - Diagnostics X-ray: Report Reviewed - General Mental Status: Awake and Alert, Able to Follow Commands, Forgetful, Vague Attention: Intact Ability to Follow Directions: Good Head/Neck Control: WFL - Hearing Hearing: Normal Hearing Aide: No With Patient: No Speech Evaluation - Communication Primary Language: [place] Communication: Yes: Simple Responses Oral Expression Ability: Yes: No Impairment - Speech Production Able to Make Needs Known: Yes: WNL Intelligibility: Yes: WNL - Speech Characteristics Voice Loudness: Normal Voice Pitch: Yes: Normal Voice Phonatory-based Quality: Yes: Normal Speech Pattern: Normal Speech Clarity: < 100% Nasal Resonance: Normal Articulation: Yes: Precise - Language/Auditory Comprehension Follows: Yes: 1 Stage Simple Commands - Language/Verbal Expression Able to Respond to Simple Queries: Yes: WNL Able to Communicate Wants and Needs: Yes: WNL Functional Communication Status: Yes: WNL - Swallow Evaluation/Bedside Assessment Current Nutritional Intake: NPO, Other (,meds) Oral Secretions: Yes: WFL Facial Symmetry at Rest: Symmetrical Facial Symmetry on Retraction: Symmetrical Sensation: Normal Against Resistance Opening: Normal Against Resistance Closing: Normal Pucker Lips: Normal Smile: Normal Lingual Movement: Normal, Symmetric Lingual Speed of Movement: Normal Lingual Movement Strgth Against Opposition: Normal Lingual Movement Characteristics: Normal Velopharyngeal Movement: Normal Laryngeal Elevation: WFL Laryngeal Movement: Able to Palpate Rate of Intake: WFL Bolus Size: WFL Labial Seal: WFL Oral Prep Time: WFL A-P Transit: WFL Pocketing: None Timing of Swallow: WFL Coughing/Throat Clear: No (occas throat clearing with and without po trials) Change in Voice: No Recommendations - Speech Evaluation, Impression/Plan Impression: Swallowing overtly intact. Occasional throat clearing. Forgetful. Pleasantly confused. - Disposition Discharge to: [facility]way Facility - Dysphagia Impressions/Plan Dysphagia Impressions: Minimal Impairment *Silent aspiration: cannot be R/O at bedside - Recommendations Diet Consistency: Other (Per surgeon-Clear liquids?)
[2018-12-26] MEDS ORDERED: DEXTROSE 5%-WATER - 50 ML IVPB ONE ×4 (02:58→20:19)
[2018-12-26] MEDS ORDERED: PIPERACILLIN/TAZOBACTAM 2.25 GM VIAL IVPB ONE ×4 (02:58→20:19)
[2018-12-26] MEDS: PIPERACILLIN/TAZOB 2.25 GM 2.25 GM in DEXTROSE 5%-WATER - 50 ML IVPB SCH ×4 (03:02→20:23)
[2018-12-26 06:19] LABS: BASO % 0.3 % (0-2.0); EOS % 0.9 % (0-4.5); HEMOGLOBIN 9.1 GM/dL (10.7-15.3); LYMPH % 7.3 % (8-40); MCH 24.1 pg (25.7-33.7); MCHC 31.3 g/dl (32.0-36.0); MEAN CELL VOLUME 76.9 fl (80-96); MEAN PLT VOLUME 9.2 fl (7.5-11.1); MONO % 6.1 % (3.8-10.2); NEUT % 85.4 % (42.8-82.8); PLATELET COUNT 161 K/MM3 (134-434); RBC 3.77 M/mm3 (3.60-5.2); RDW 19.6 % (11.6-15.6); WHITE BLOOD COUNT 17.4 K/mm3 (4.0-10.0)
[2018-12-26] MEDS: SODIUM CHLORIDE 1,000 ML IV SCH ×2 (06:27→10:20)
--- NOTE | 2018-12-26 06:42 | PN ---
Physical Exam: SUBJECTIVE: 83 year old female with PMH atrial fibrillation on Eliquis, GERD, esophagitis, dementia, hallucinations, ataxia, HTN, benign neoplasm of cerebral meninges, who presents to the emergency department via EMS from [facility] 12/21/18 due to nausea and vomiting. Pt was in atrial fibrillation with RVR at presentation. Pt was recently admitted to [facility] 12/13/18-12/20/18 for coffee ground emesis, EGD was negative, colonoscopy was planned for outpatient secondary to electrolyte imbalance and tachycardia. Pt had right hemicolectomy for obstruction 12/22/18. Post surgery pt was tachycardic and hypotensive, shock was presumed, pt was covered with Zosyn. Pt was placed on levophed, switched to Amiodarone. Pt was DC on pressors 12/24/17, switched from Amiodarone to IV Diltiazem pushes. Pt showed no response to attempted rate control. Pt denied pain today. Pt has no complaints. RN reported multiple small bowel movements yesterday, [address] w/o contrast 12/21/18 shows diffuse to moderate marked dilatation of the small bowel including the terminal ileum with significant dilatation of the cecum and proximal ascending colon up to a point of transition seen in the proximal/mid ascending colon where there is suggestion of wall thickening and collapse of the rest of the colon consistent with obstruction. OBJECTIVE: Vital Signs Period Temp Pulse Resp BP Sys/Geramin Pulse Ox Last 24 Hr 98 F-98.5 F 123-144 19-25 82-132/52-96 99-99 GENERAL: The patient is awake, alert, and fully oriented, in no acute distress. HEAD: Normal with no signs of trauma. EYES: PERRL, extraocular movements intact, sclera anicteric, conjunctiva clear. No ptosis. ENT: Ears normal, nares patent, oropharynx clear without exudates, moist mucous membranes. NECK: Trachea midline, full range of motion, supple. LUNGS: left sided crackles. clear to auscultation on the right. HEART: Regular rate and rhythm, S1, S2 without murmur, rub or gallop. ABDOMEN: Soft, nontender, nondistended, normoactive bowel sounds, no guarding, no rebound, no hepatosplenomegaly, no masses. EXTREMITIES: 2+ pulses, warm, well-perfused, no edema. NEUROLOGICAL: Cranial nerves II through XII grossly intact. Normal speech, gait not observed. PSYCH: Normal mood, normal affect. confused. SKIN: Warm, dry, normal turgor, no rashes or lesions noted Laboratory Results - last 24 hr 12/24/18 12/24/18 12/25/18 05:30 05:30 07:50 WBC 13.6 H RBC 4.07 Hgb 9.9 L Hct 31.1 L MCV 76.4 L MCH 24.3 L MCHC 31.8 L RDW 19.6 H Plt Count 119 L MPV 9.3 Absolute Neuts (auto) 11.8 H Neutrophils % 86.6 H Lymphocytes % 7.8 L Monocytes % 5.2 Eosinophils % 0.2 D Basophils % 0.2 Nucleated RBC % 0 Sodium Potassium Chloride Carbon Dioxide Anion Gap BUN Creatinine Creat Clearance w eGFR Random Glucose Calcium Total Bilirubin AST ALT Alkaline Phosphatase Total Protein Albumin Carcinoembryonic Ag 1.8 CA 125 Antigen 45.3 H Urine Color Urine Appearance Urine pH Ur Specific [place] Urine Protein Urine Glucose (UA) Urine Ketones Urine Blood Urine Nitrite Urine Bilirubin Urine Urobilinogen Ur Leukocyte Esterase Urine WBC (Auto) Urine RBC (Auto) Ur Epithelial Cells Urine Bacteria U Random Total Protein Ur Random Sodium Urine Creatinine 12/25/18 12/25/18 12/25/18 07:50 10:00 10:00 WBC RBC Hgb Hct MCV MCH MCHC RDW Plt Count MPV Absolute Neuts (auto) Neutrophils % Lymphocytes % Monocytes % Eosinophils % Basophils % Nucleated RBC % Sodium 142 Potassium 3.6 Chloride 113 H Carbon Dioxide 21 Anion Gap 8 BUN 17 Creatinine 0.7 Creat Clearance w eGFR > 60 Random Glucose 71 L Calcium 7.3 L Total Bilirubin 0.4 AST 15 ALT 12 L Alkaline Phosphatase 67 Total Protein 3.9 L Albumin 1.6 L Carcinoembryonic Ag CA 125 Antigen Urine Color Yellow Urine Appearance Slcloudy Urine pH 5.0 Ur Specific [place] 1.031 Urine Protein 1+ H Urine Glucose (UA) Negative Urine Ketones Trace H Urine Blood Negative Urine Nitrite Negative Urine Bilirubin Negative Urine Urobilinogen Negative Ur Leukocyte Esterase Negative Urine WBC (Auto) 0-2 Urine RBC (Auto) 0-1 Ur Epithelial Cells None seen Urine Bacteria None seen U Random Total Protein Ur Random Sodium 36 L Urine Creatinine 12/25/18 12/25/18 12/26/18 10:00 10:00 05:30 WBC 17.4 H RBC 3.77 Hgb 9.1 L Hct 29.0 L MCV 76.9 L MCH 24.1 L MCHC 31.3 L RDW 19.6 H Plt Count 161 D MPV 9.2 Absolute Neuts (auto) 14.9 H Neutrophils % 85.4 H Lymphocytes % 7.3 L Monocytes % 6.1 Eosinophils % 0.9 D Basophils % 0.3 Nucleated RBC % 0 Sodium Potassium Chloride Carbon Dioxide Anion Gap BUN Creatinine Creat Clearance w eGFR Random Glucose Calcium Total Bilirubin AST ALT Alkaline Phosphatase Total Protein Albumin Carcinoembryonic Ag CA 125 Antigen Urine Color Urine Appearance Urine pH Ur Specific [place] Urine Protein Urine Glucose (UA) Urine Ketones Urine Blood Urine Nitrite Urine Bilirubin Urine Urobilinogen Ur Leukocyte Esterase Urine WBC (Auto) Urine RBC (Auto) Ur Epithelial Cells Urine Bacteria U Random Total Protein 101.6 H Ur Random Sodium Urine Creatinine 165.0 Active Medications Generic Name Dose Route Start Last Admin Trade Name Freq PRN Reason Stop Dose Admin Diltiazem HCl 10 mg 12/25/18 11:27 Cardizem Injection - IVPUSH Q4H PRN TACHYCARDIA Fluticasone Propionate 2 spray 12/22/18 10:00 12/25/18 09:18 Flonase - NS 2 spray DAILY OBDULIO Administration Piperacillin Sod/Tazobactam 50 mls @ 100 mls/hr 12/23/18 21:00 12/26/18 03:02 Sod 2.25 gm/ Dextrose IVPB 100 mls/hr Q6H-IV OBDULIO Administration Sodium Chloride 1,000 mls @ 100 mls/hr 12/25/18 09:37 12/26/18 06:27 Normal Saline - IV 100 mls/hr ASDIR OBDULIO Administration Norepinephrine Bitartrate 8, 500 mls @ 9.44 mls/hr 12/25/18 13:25 000 mcg/ Dextrose IV ASDIR OBDULIO Protocol 0.03 MCG/KG/MIN Morphine Sulfate 2 mg 12/25/18 13:22 12/25/18 14:49 Morphine Sulfate IVPUSH 2 mg Q4H PRN Administration PAIN LEVEL 7 - 10 Ondansetron HCl 4 mg 12/21/18 23:40 12/22/18 12:39 Zofran Injection IVPUSH 4 mg Q6H PRN Administration NAUSEA Pantoprazole Sodium 40 mg 12/21/18 19:15 12/25/18 09:10 Protonix Iv IVPUSH 40 mg DAILY OBDULIO Administration Propranolol HCl 1 mg 12/25/18 11:28 12/25/18 18:11 Inderal Injection - IVPUSH 1 mg Q1H PRN Administration TACHYCARDIA Propranolol HCl 40 mg 12/25/18 14:00 12/26/18 06:26 Inderal - PO 40 mg TID OBDULIO Administration ASSESSMENT/PLAN: #SBO -Post op right hemicolectomy day 4 -Obstructive ascending colon mass -CA-125 elevated -Pain control: morphine 2 mg IV q4H PRN #Atrial flutter/Hypotension -Cardiology recs starting chronotropic vasoconstrictor pressor with low dose PO and IV propranolol for HR control in setting of hypotension -Norepinephrine was not used overnight, BP remained stable -DC pressors -Increase Propranolol from 40 mg PO TID PO to 60 mg PO QID -Propranolol 1 mg IV push Q1 hour -Restart Eliquis 5 mg PO BID today -On Zosyn for suspected septic shock s/p surgery -B/L pleural effusions on CXR concerning for high output failure -Lasix 40 mg IV on time order -Pending ECHO today #Leukocytosis -WBC 17.4 today 12/26/18; prior 13.6 12/25/18 -Afebrile, crackles to left base -UA yesterday 12/25/18 negative for UTI -CXR: bilateral pleural effusions. no infiltrate. #Electrolyte abnormalities -Hypophosphatemia 1.8, 1 packet Phosphorus ordered -Hypomagnesium 1.3, Magnesium 800 mg PO, Magnesium 1g IV ordered -Hypocalcemia 8.3, Calcium carbonate PO 500 mg solution ordered -Borderline potassium 3.5, KPhos 30 MEq ordered -Repeat CMP ordered for 1600 today #HTN -Monitor off meds given hypotension #GIB -Recent admit for GIB, hgb stable here -Plans per GI for outpt scope -Protonix IV 40 mg daily -Zofran 4 mg IV Q6 PRN #GERD -Protonix IV 40 mg daily #Hypomagnesium -Resolved 12/24/18 #FEN -Andre catheter -No IV fluids -Left sided line is an EJ, confirmed with CXR today 12/26/18 #DIET -clear liquids #DISPO - MICU Visit type - Emergency Visit Emergency Visit: Yes ED Registration Date: 12/22/18 Care time: The patient presented to the Emergency Department on the above date and was hospitalized for further evaluation of their emergent condition. - New Patient This patient is new to me today: No - Critical Care Critical Care patient: Yes Total Critical Care Time (in minutes): 35 Critical Care Statement: The care of this patient involved high complexity decision making to prevent further life threatening deterioration of the patient 's condition and/or to evaluate & treat vital organ system(s) failure or risk of failure. - Discharge Referral Referred to [facility] Med P.C.: No
[2018-12-26 06:45] LABS: ANION GAP 8 MMOL/L (8-16); BLOOD UREA NITROGEN 13 mg/dL (7-18); CHLORIDE 114 mmol/L (98-107); CO2 21 mmol/L (21-32); CREATININE 0.5 mg/dL (0.55-1.3); GLUCOSE,RANDOM 63 mg/dL (74-106); MAGNESIUM 1.3 mg/dL (1.8-2.4); PHOSPHOROUS 1.8 mg/dL (2.5-4.9); POTASSIUM 3.5 mmol/L (3.5-5.1); SODIUM 143 mmol/L (136-145)
[2018-12-26 06:48] LABS: CALCIUM 6.9 mg/dL (8.5-10.1)
[2018-12-26] MEDS ORDERED: NAPH,MB-DB/K PH,MBDB POWDER PACKET PO ONE (07:25)
[2018-12-26] MEDS ORDERED: MAGNESIUM OXIDE 400 MG TABLET (FP) PO ONE (07:26)
[2018-12-26] MEDS ORDERED: MAGNESIUM SULF 50% (8.12 MEQ/2 ML-1 GM VIAL) IVPB ONE (08:00)
[2018-12-26] MEDS ORDERED: POTASSIUM PHOSPHATE 30 MM in DEXTROSE 5%-WATER - 250 ML IVPB ONE (08:30)
[2018-12-26 09:20] LABS: ALBUMIN 1.8 g/dl (3.4-5.0)
[2018-12-26] MEDS: PANTOPRAZOLE SODIUM 40 MG VIAL IVPUSH SCH (09:40)
--- NOTE | 2018-12-26 09:44 | PN ---
Progress Note (short form) - Note Progress Note: s: no chest pain, palps, dyspnea. Current Medications Diltiazem HCl (Cardizem Injection -) 10 mg IVPUSH Q4H PRN PRN Reason: TACHYCARDIA Last Admin: 12/26/18 08:07 Dose: 10 mg Fluticasone Propionate (Flonase -) 2 spray NS DAILY [facility] Last Admin: 12/25/18 09:18 Dose: 2 spray Piperacillin Sod/Tazobactam (Sod 2.25 gm/ Dextrose) 50 mls @ 100 mls/hr IVPB Q6H-IV [facility] Last Admin: 12/26/18 09:37 Dose: 100 mls/hr Sodium Chloride (Normal Saline -) 1,000 mls @ 100 mls/hr IV ASDIR [facility] Last Admin: 12/26/18 06:27 Dose: 100 mls/hr Potassium Phosphate 30 mm/ (Dextrose) 260 mls @ 43.333 mls/hr IVPB ONCE ONE Stop: 12/26/18 14:29 Morphine Sulfate (Morphine Sulfate) 2 mg IVPUSH Q4H PRN PRN Reason: PAIN LEVEL 7 - 10 Last Admin: 12/25/18 14:49 Dose: 2 mg Ondansetron HCl (Zofran Injection) 4 mg IVPUSH Q6H PRN PRN Reason: NAUSEA Last Admin: 12/22/18 12:39 Dose: 4 mg Pantoprazole Sodium (Protonix Iv) 40 mg IVPUSH DAILY [facility] Last Admin: 12/26/18 09:40 Dose: 40 mg Propranolol HCl (Inderal Injection -) 1 mg IVPUSH Q1H PRN PRN Reason: TACHYCARDIA Last Admin: 12/25/18 18:11 Dose: 1 mg Propranolol HCl (Inderal -) 40 mg PO TID [facility] Last Admin: 12/26/18 06:26 Dose: 40 mg - Objective Vital Signs Period Temp Pulse Resp BP Sys/Germain Pulse Ox Last 24 Hr 98 F-99.7 F 123-142 - 82-135/54-96 95-99 Constitutional: Yes: Well Nourished, No Distress, Calm Cardiovascular: Yes: Regular Rate and Rhythm, S1, S2. No: Gallop, Murmur Respiratory: Yes: Regular, CTA Bilaterally (anteriorly). No: Accessory Muscle Use, Rales, Wheezes Extremities: No: Cold Edema: No Neurological: Yes: Alert, Oriented Psychiatric: No: Agitated Assessment/Plan ecg: aflutter with 2:1 avb, vr 127, no ischemic changes echo 07/2015: nl lv/rv, no sig valve path echo 07/2015: nl lv/rv, no sig valve path cxr: clear lungs CXR: betzy pleural effusion tele: AFL 2:1 in 140s a/p: 83 f hx dementia, afib/flutter, gerd, htn, tia, sent from [facility] for coffee ground emesis. aflutter: - was on diltiazem 60 mg QID and propranolol 120 mg BID at home-->npo postop bowel surgery with tachycardia and hypotensive on levophed-->amio gtt started with persistent tachycardia. hemodynamics improved-->amio d/c'd, prn iv diltiazem ordered - 12/25: H?R 140s, no response to IV diltiazem pushes, SBP dropped to 80s. d/w'd icu team: will start non-chronotropic vasoconstrictor pressor, then initiate low dose PO and IV propranolol trial for HR control. - eliquis held briefly during 12/05 admit with GIB, resumed on discharge with plan for outpt GI scopes. H/H were stable when arrived this time with SBO, eliquis now on hold for surgery - 12/26: HR remains 130s, will increase propranolol to 60 mg QID (home dose is propranolol long acting 120 mg BID). If BP tolerates would restart PO diltiazem as well, at home was on 60 mg QID - resume AC when ok with surgery--if remains npo can give lovenox. pleural effusions - noted on CXR, rales on exam - lasix today per ICU team - dc IV fluids - monitor Cr, lytes, daily weights - echo ordered hypotension: -postop hypotension s/p bowel surgery -improving htn: -monitor off meds given hypotension GIB: -recent admit for GIB, hgb stable here -plans per GI were outpt scopes sbo: -s/p surgery est time spent in review of data, pt exam, and formulating mgmt plan of potentially life-threatening conditions = 35 min
[2018-12-26] MEDS: FLUTICASONE PROP 0.05% 16 GM NASAL SPRAY NS SCH (10:15)
[2018-12-26] MEDS ORDERED: FUROSEMIDE 40 MG/4 ML INJECTABLE VIAL IVPUSH ONE (10:18)
[2018-12-26] MEDS ORDERED: CALCIUM CARBONATE SUSPENSION - 500 MG/5 ML ML PO ONE (12:00)
--- NOTE | 2018-12-26 12:05 | PN ---
Progress Note (short form) - Note Progress Note: Renal follow up Pt seen and examined in the ICU awake and alert s/p Lasix this am making urine, 500cc in last 24 hours no sob, cp, abd pain Vital Signs Temperature 99.6 F 12/26/18 10:00 Pulse Rate 128 H 12/26/18 10:00 Respiratory Rate 22 H 12/26/18 10:00 Blood Pressure 100/80 12/26/18 10:00 O2 Sat by Pulse Oximetry (%) 95 12/26/18 08:14 Intake & Output 12/23/18 12/24/18 12/25/18 12/26/18 22:59 23:59 23:59 23:59 Intake Total 1700 300 Output Total 500 Balance 1200 300 Weight 72.6 kg NAD awake and alert on NC O2 Neck supple, no JVD RRR, No M/R CTA, no rales or wheeze soft. ND, midline incision noted, brook in place no bladder distension No LE edema CBC, BMP 12/26/18 05:30 12/26/18 05:30 Current Medications Apixaban (Eliquis -) 5 mg PO BID OBDULIO Diltiazem HCl (Cardizem Injection -) 10 mg IVPUSH Q4H PRN PRN Reason: TACHYCARDIA Last Admin: 12/26/18 08:07 Dose: 10 mg Fluticasone Propionate (Flonase -) 2 spray NS DAILY OBDULIO Last Admin: 12/26/18 10:15 Dose: 2 spray Piperacillin Sod/Tazobactam (Sod 2.25 gm/ Dextrose) 50 mls @ 100 mls/hr IVPB Q6H-IV OBDULIO Last Admin: 12/26/18 09:37 Dose: 100 mls/hr Potassium Phosphate 30 mm/ (Dextrose) 260 mls @ 43.333 mls/hr IVPB ONCE ONE Stop: 12/26/18 14:29 Last Admin: 12/26/18 10:19 Dose: 43.333 mls/hr Morphine Sulfate (Morphine Sulfate) 2 mg IVPUSH Q4H PRN PRN Reason: PAIN LEVEL 7 - 10 Last Admin: 12/25/18 14:49 Dose: 2 mg Ondansetron HCl (Zofran Injection) 4 mg IVPUSH Q6H PRN PRN Reason: NAUSEA Last Admin: 03/08/19 12:39 Dose: 4 mg Pantoprazole Sodium (Protonix Iv) 40 mg IVPUSH DAILY [facility] Last Admin: 12/26/18 09:40 Dose: 40 mg Propranolol HCl (Inderal Injection -) 1 mg IVPUSH Q1H PRN PRN Reason: TACHYCARDIA Last Admin: 12/25/18 18:11 Dose: 1 mg Propranolol HCl (Inderal -) 60 mg PO QID [facility] 83 year old woman with hx of GERD, Dementia, Hypertension, Benigin neoplasm of cerebral maninges who presented with N/V and found to have SBO s/p Ex-lap now with oliguria. #Oliguria with preserved renal function #SBO s/p Ex-lap #Hypotenson/shock #Anemia #Hx of Hypertension Renal function stable continue to trend urine output Lasix as needed for management of effusions keep MAP > 65 Heart rate control as per cardiology Thank you Tono Collins DO
--- NOTE | 2018-12-26 12:12 | PN ---
Progress Note, [employer] - Note Progress Note: Case reviewed with Dr. Navarro. Started on clear liquid, to advance as tolerated. Selected Entries 12/26/18 09:38 Breakfast 75% Laboratory Tests 12/23/18 12/24/18 12/25/18 09:01 07:02 07:50 WBC 25.0 H 11.1 H 13.6 H 12/26/18 05:30 WBC 17.4 H
--- NOTE | 2018-12-26 12:48 | PN ---
Teaching Attending Note Name of Resident: Kierra Brown ATTENDING PHYSICIAN STATEMENT I saw and evaluated the patient. I reviewed the resident's note and discussed the case with the resident. I agree with the resident's findings and plan as documented. SUBJECTIVE: Patient seen and examined in the ICU. Awake and responsive but mildly confused. Denies CP or SOB. Does reports some mild abdominal discomfort. Rapid AFib better. Intake & Output 12/23/18 12/24/18 12/25/18 12/26/18 22:59 23:59 23:59 23:59 Intake Total 1700 300 Output Total 500 Balance 1200 300 Weight 160 lb 0.889 oz Last Vital Signs Temp Pulse Resp BP Pulse Ox 99.6 F 126 H 22 H 118/89 95 12/26/18 10:00 12/26/18 12:00 12/26/18 12:00 12/26/18 12:00 12/26/18 08:14 Active Medications Apixaban (Eliquis -) 5 mg PO BID OBDULIO Diltiazem HCl (Cardizem Injection -) 10 mg IVPUSH Q4H PRN PRN Reason: TACHYCARDIA Last Admin: 12/26/18 08:07 Dose: 10 mg Fluticasone Propionate (Flonase -) 2 spray NS DAILY [facility] Last Admin: 12/26/18 10:15 Dose: 2 spray Piperacillin Sod/Tazobactam (Sod 2.25 gm/ Dextrose) 50 mls @ 100 mls/hr IVPB Q6H-IV OBDULIO Last Admin: 12/26/18 09:37 Dose: 100 mls/hr Potassium Phosphate 30 mm/ (Dextrose) 260 mls @ 43.333 mls/hr IVPB ONCE ONE Stop: 12/26/18 14:29 Last Admin: 12/26/18 10:19 Dose: 43.333 mls/hr Morphine Sulfate (Morphine Sulfate) 2 mg IVPUSH Q4H PRN PRN Reason: PAIN LEVEL 7 - 10 Last Admin: 12/25/18 14:49 Dose: 2 mg Ondansetron HCl (Zofran Injection) 4 mg IVPUSH Q6H PRN PRN Reason: NAUSEA Last Admin: 12/22/18 12:39 Dose: 4 mg Pantoprazole Sodium (Protonix Iv) 40 mg IVPUSH DAILY [facility] Last Admin: 12/26/18 09:40 Dose: 40 mg Propranolol HCl (Inderal Injection -) 1 mg IVPUSH Q1H PRN PRN Reason: TACHYCARDIA Last Admin: 12/25/18 18:11 Dose: 1 mg Propranolol HCl (Inderal -) 60 mg PO QID OBDULIO Gen; awake, mildly confused, no distress HEENT: supple, PERRL PULM: clear anterior CV: tachycardia, Aflutter ABD: midline incision CDI, hypoactive but present BS EXT: no edema NEURO: non focal, mildly confused as to events Laboratory Results - last 24 hr 12/24/18 12/24/18 12/25/18 05:30 05:30 10:00 WBC RBC Hgb Hct MCV MCH MCHC RDW Plt Count MPV Absolute Neuts (auto) Neutrophils % Lymphocytes % Monocytes % Eosinophils % Basophils % Nucleated RBC % Sodium Potassium Chloride Carbon Dioxide Anion Gap BUN Creatinine Creat Clearance w eGFR Random Glucose Calcium Phosphorus Magnesium Albumin Carcinoembryonic Ag 1.8 CA 125 Antigen 45.3 H Urine WBC (Auto) 0-2 Urine RBC (Auto) 0-1 Ur Epithelial Cells None seen Urine Bacteria None seen U Random Total Protein 12/25/18 12/26/18 12/26/18 10:00 05:30 05:30 WBC 17.4 H RBC 3.77 Hgb 9.1 L Hct 29.0 L MCV 76.9 L MCH 24.1 L MCHC 31.3 L RDW 19.6 H Plt Count 161 D MPV 9.2 Absolute Neuts (auto) 14.9 H Neutrophils % 85.4 H Lymphocytes % 7.3 L Monocytes % 6.1 Eosinophils % 0.9 D Basophils % 0.3 Nucleated RBC % 0 Sodium 143 Potassium 3.5 Chloride 114 H Carbon Dioxide 21 Anion Gap 8 BUN 13 Creatinine 0.5 L Creat Clearance w eGFR > 60 Random Glucose 63 L Calcium 6.9 L* Phosphorus 1.8 L Magnesium 1.3 L Albumin 1.8 L Carcinoembryonic Ag CA 125 Antigen Urine WBC (Auto) Urine RBC (Auto) Ur Epithelial Cells Urine Bacteria U Random Total Protein 101.6 H IMP: Sepsis Relative hypotension Rapid AFlutter LBO S/P Exlap Delerium PLAN: ABX per ID Rate control per Cardiology Monitor off IVF Lasix Strict I & O VTE prophylaxis Aspiration precautions Cardiac Telemetry monitoring Dr Monroe
[2018-12-26] MEDS ORDERED: PT OWN MED DRAWER 7, Y5N ONE ×4 (12:51→23:55)
--- NOTE | 2018-12-26 14:58 | PN ---
GI Progress Note Subjective: POD 3 s/p right hemocolectomy secondary to colon mass Patient sitting up in bed awake, having Echo performed Denies abdominal pain - Objective Vital Signs: Vital Signs Temperature 99.6 F 12/26/18 10:00 Pulse Rate 126 H 12/26/18 12:00 Respiratory Rate 22 H 12/26/18 12:00 Blood Pressure 118/89 12/26/18 12:00 O2 Sat by Pulse Oximetry (%) 95 12/26/18 08:14 Constitutional: Calm Eyes: No: Sclera Icterus Cardiovascular: Yes: Tachycardia (regular rhythm) Respiratory: Yes: Diminished (at bases bilaterally with poor insp effort) Gastrointestinal Inspection: Yes: Scars (stapled midline vertical surgical scar) . No: Distention ...Auscultate: Yes: Normoactive Bowel Sounds ...Palpate: No: Tenderness Edema: No (No LE edema) Neurological: Yes: Alert Labs: CBC, BMP 12/26/18 05:30 12/26/18 05:30 INR, PTT INR 1.13 (0.83-1.09) H 12/21/18 09:35 Problem List - Problems (1) Colon obstruction Assessment/Plan: POD 3: Right hemocolectomy Post op care per surgery Heart rate management per Primary team / cardiology Will need follow-up colonoscopy as outpatient Code(s): K56.609 - UNSP INTESTNL OBST, UNSP TO PARTIAL VERSUS COMPLETE OBST
--- NOTE | 2018-12-26 16:04 | ECHO ---
Name: TED ALVAREZ Exam:Adult Echocardiogram Study Date: 12/26/2018 02:20 PM Age: 83 yrs Reason For Study: PLEURAL EFFUSION Height: 66 in Weight: 160 lb BSA: 1.8 m2 MMode/2D Measurements & Calculations IVSd: 1.1 cm Ao root diam: 2.5 cm LVIDd: 3.1 cm LA dimension: 3.5 cm LVIDs: 2.3 cm LVPWd: 0.77 cm EDV(Teich): 38.5 ml ESV(Teich): 18.3 ml Doppler Measurements & Calculations MV E max art: 63.7 cm/sec Ao V2 max: 169.4 cm/sec MV A max art: 39.5 cm/sec Ao max P.5 mmHg MV E/A: 1.6 MV dec time: 0.12 sec LV V1 max P.6 mmHg MR max art: 430.1 cm/sec LV V1 max: 62.9 cm/sec MR max P.7 mmHg TR max art: 222.3 cm/sec Med Peak E' Art: 6.0 cm/sec TR max P.8 mmHg Med E/e': 10.6 Lat Peak E' Art: 13.7 cm/sec Lat E/e': 4.6 Left Ventricle The left ventricular cavity is small. The left ventricle is hyperdynamic. Ejection Fraction = 70-75%. Right Ventricle The right ventricle is mild to moderately dilated. The right ventricle is hyperdynamic. Atria The left atrial size is normal. The right atrium is mildly dilated. Mitral Valve There is mild to moderate mitral annular calcification. There is mild to moderate mitral regurgitatio n. The mitral regurgitant jet is eccentrically directed. Tricuspid Valve The tricuspid valve is not well visualized, but is grossly normal. There is mild tricuspid regurgitat ion. Right ventricular systolic pressure is 30-35 mmhg. Aortic Valve There is mild aortic sclerosis.;. No hemodynamically significant valvular aortic stenosis. Pulmonic Valve The pulmonic valve is not well visualized. Great Vessels The aortic root is not well visualized. Normal aortic arch, descending and ascending aorta. Pericardium/Pleura There is no pericardial effusion. Interpretation Summary The left ventricular cavity is small. The left ventricle is hyperdynamic. Ejection Fraction = 70-75%. The right ventricle is mild to moderately dilated. The right ventricle is hyperdynamic. The left atrial size is normal. The right atrium is mildly dilated. There is mild aortic sclerosis.; No hemodynamically significant valvular aortic stenosis. There is mild to moderate mitral annular calcification. There is mild to moderate mitral regurgitatio n. The mitral regurgitant jet is eccentrically directed. MD Shanna Mo 12/26/2018 04:04 PM
--- NOTE | 2018-12-26 16:34 | PN ---
Progress Note, Physician History of Present Illness: comfortable feels lousy abd discomfort - Current Medication List Current Medications: Active Medications Apixaban (Eliquis -) 5 mg PO BID COUNTS INCLUDE 234 BEDS AT THE [facility] Diltiazem HCl (Cardizem Injection -) 10 mg IVPUSH Q4H PRN PRN Reason: TACHYCARDIA Last Admin: 12/26/18 08:07 Dose: 10 mg Fluticasone Propionate (Flonase -) 2 spray NS DAILY COUNTS INCLUDE 234 BEDS AT THE [facility] Last Admin: 12/26/18 10:15 Dose: 2 spray Piperacillin Sod/Tazobactam (Sod 2.25 gm/ Dextrose) 50 mls @ 100 mls/hr IVPB Q6H-IV OBDULIO Last Admin: 12/26/18 15:35 Dose: 100 mls/hr Morphine Sulfate (Morphine Sulfate) 2 mg IVPUSH Q4H PRN PRN Reason: PAIN LEVEL 7 - 10 Last Admin: 12/25/18 14:49 Dose: 2 mg Ondansetron HCl (Zofran Injection) 4 mg IVPUSH Q6H PRN PRN Reason: NAUSEA Last Admin: 12/22/18 12:39 Dose: 4 mg Pantoprazole Sodium (Protonix Iv) 40 mg IVPUSH DAILY COUNTS INCLUDE 234 BEDS AT THE [facility] Last Admin: 12/26/18 09:40 Dose: 40 mg Propranolol HCl (Inderal Injection -) 1 mg IVPUSH Q1H PRN PRN Reason: TACHYCARDIA Last Admin: 12/25/18 18:11 Dose: 1 mg Propranolol HCl (Inderal -) 60 mg PO QID COUNTS INCLUDE 234 BEDS AT THE [facility] Last Admin: 12/26/18 15:33 Dose: Not Given - Objective Vital Signs: Vital Signs Temperature 97.8 F 12/26/18 14:00 Pulse Rate 101 H 12/26/18 14:00 Respiratory Rate 26 H 12/26/18 14:00 Blood Pressure 109/78 12/26/18 14:00 O2 Sat by Pulse Oximetry (%) 95 12/26/18 08:14 Constitutional: Yes: Calm, Mild Distress Cardiovascular: Yes: Regular Rate and Rhythm Respiratory: Yes: Regular, CTA Bilaterally Gastrointestinal: Yes: Normal Bowel Sounds, Soft Wound/Incision: Yes: Clean/Dry Neurological: Yes: Alert, Oriented Psychiatric: Yes: Alert, Oriented Labs: CBC, BMP 12/26/18 05:30 12/26/18 05:30 INR, PTT INR 1.13 (0.83-1.09) H 12/21/18 09:35 Assessment/Plan - Problems (1) Colon obstruction Code(s): K56.609 - UNSP INTESTNL OBST, UNSP TO PARTIAL VERSUS COMPLETE OBST (2) Atrial fibrillation with RVR Code(s): I48.91 - UNSPECIFIED ATRIAL FIBRILLATION (3) Dementia Code(s): F03.90 - UNSPECIFIED DEMENTIA WITHOUT BEHAVIORAL DISTURBANCE (4) Esophagitis Code(s): K20.9 - ESOPHAGITIS, UNSPECIFIED (5) GERD (gastroesophageal reflux disease) Code(s): K21.9 - GASTRO-ESOPHAGEAL REFLUX DISEASE WITHOUT ESOPHAGITIS (6) Hypertension Code(s): I10 - ESSENTIAL (PRIMARY) HYPERTENSION Qualifiers: Hypertension type: essential hypertension Qualified Code(s): I10 - Essential (primary) hypertension leukocytosis plan continue abx monitor heart rate rest as per the team nutrition out of bed
[2018-12-26 17:19] LABS: ALBUMIN 1.6 g/dl (3.4-5.0); ALK PHOS 64 U/L (45-117); ANION GAP 9 MMOL/L (8-16); BILIRUBIN,TOTAL 0.5 mg/dL (0.2-1); BLOOD UREA NITROGEN 10 mg/dL (7-18); CALCIUM 7.2 mg/dL (8.5-10.1); CHLORIDE 111 mmol/L (98-107); CO2 21 mmol/L (21-32); CREATININE 0.6 mg/dL (0.55-1.3); GLUCOSE,RANDOM 140 mg/dL (74-106); POTASSIUM 3.3 mmol/L (3.5-5.1); SGOT/AST 18 U/L (15-37); SGPT/ALT 13 U/L (13-61); SODIUM 141 mmol/L (136-145); TOT PROT 4.2 g/dl (6.4-8.2)
--- NOTE | 2018-12-26 19:56 | PN ---
Progress Note, Physician History of Present Illness: 24HR EVENTS -Echo ordered -started on clear liquids -given one dose of lasix this morning -IVF discontinued - Current Medication List Current Medications: Active Medications Apixaban (Eliquis -) 5 mg PO BID [facility] Diltiazem HCl (Cardizem Injection -) 10 mg IVPUSH Q4H PRN PRN Reason: TACHYCARDIA Last Admin: 12/26/18 08:07 Dose: 10 mg Fluticasone Propionate (Flonase -) 2 spray NS DAILY [facility] Last Admin: 12/26/18 10:15 Dose: 2 spray Piperacillin Sod/Tazobactam (Sod 2.25 gm/ Dextrose) 50 mls @ 100 mls/hr IVPB Q6H-IV OBDULIO Last Admin: 12/26/18 15:35 Dose: 100 mls/hr Morphine Sulfate (Morphine Sulfate) 2 mg IVPUSH Q4H PRN PRN Reason: PAIN LEVEL 7 - 10 Last Admin: 12/25/18 14:49 Dose: 2 mg Ondansetron HCl (Zofran Injection) 4 mg IVPUSH Q6H PRN PRN Reason: NAUSEA Last Admin: 12/22/18 12:39 Dose: 4 mg Pantoprazole Sodium (Protonix Iv) 40 mg IVPUSH DAILY [facility] Last Admin: 12/26/18 09:40 Dose: 40 mg Propranolol HCl (Inderal Injection -) 1 mg IVPUSH Q1H PRN PRN Reason: TACHYCARDIA Last Admin: 12/25/18 18:11 Dose: 1 mg Propranolol HCl (Inderal -) 60 mg PO QID [facility] Last Admin: 12/26/18 18:03 Dose: Not Given - Objective Vital Signs: Vital Signs Temperature 98.1 F 12/26/18 18:01 Pulse Rate 132 H 12/26/18 18:01 Respiratory Rate 18 12/26/18 18:01 Blood Pressure 99/61 12/26/18 18:01 O2 Sat by Pulse Oximetry (%) 95 12/26/18 08:14 Constitutional: Yes: Calm, Mild Distress Eyes: Yes: PERRL HENT: Yes: Atraumatic, Normocephalic Neck: Yes: Supple Cardiovascular: Yes: Tachycardia Respiratory: Yes: Regular Gastrointestinal: Yes: Soft, Abdomen, Obese ...Rectal Exam: Yes: WNL Musculoskeletal: Yes: Joint Stiffness, Muscle Weakness Edema: Yes Edema: LLE: 2+, RLE: 2+ Integumentary: Yes: Venous Stasis Changes Wound/Incision: Yes: Clean/Dry Neurological: Yes: Alert, Unsteady Gait, Weakness Psychiatric: Yes: Alert Labs: CBC, BMP 12/26/18 05:30 12/26/18 16:30 INR, PTT INR 1.13 (0.83-1.09) H 12/21/18 09:35 Problem List - Problems (1) Dementia Assessment/Plan: frequent reorientation Code(s): F03.90 - UNSPECIFIED DEMENTIA WITHOUT BEHAVIORAL DISTURBANCE (2) Flutter-fibrillation Assessment/Plan: Propranolol 60 mg PO QID Propranolol 1 mg IV push Q1 hour Eliquis 2.5 mg PO BID today Code(s): I49.8 - OTHER SPECIFIED CARDIAC ARRHYTHMIAS (3) GERD (gastroesophageal reflux disease) Code(s): K21.9 - GASTRO-ESOPHAGEAL REFLUX DISEASE WITHOUT ESOPHAGITIS (4) Leukocytosis (leucocytosis) Assessment/Plan: -continue Zosyn Code(s): D72.829 - ELEVATED WHITE BLOOD CELL COUNT, UNSPECIFIED (5) Small bowel obstruction Assessment/Plan: -Protonix IV 40 mg daily -Zofran 4 mg IV Q6 PRN -clear liquids Code(s): K56.609 - UNSP INTESTNL OBST, UNSP TO PARTIAL VERSUS COMPLETE OBST Impression/Plan Impression/Plan: DISPO -ICU Care -DNR/DNI Visit type - Emergency Visit Emergency Visit: Yes ED Registration Date: 12/22/18 Care time: The patient presented to the Emergency Department on the above date and was hospitalized for further evaluation of their emergent condition. - New Patient This patient is new to me today: Yes Date on this admission: 12/26/18 - Critical Care Critical Care patient: Yes Total Critical Care Time (in minutes): 35 Critical Care Statement: The care of this patient involved high complexity decision making to prevent further life threatening deterioration of the patient 's condition and/or to evaluate & treat vital organ system(s) failure or risk of failure. - Discharge Referral Referred to [facility] Med P.C.: No
[2018-12-26] MEDS: APIXABAN 2.5 MG TABLET PO SCH (21:37)
[2018-12-26] MEDS ORDERED: APIXABAN 5 MG TABLET PO SCH (22:00)
[2018-12-27] MEDS ORDERED: dilTIAZem HCL 50 MG/10 ML - 10 ML VIAL IVPUSH ONE (01:30)
--- NOTE | 2018-12-27 01:33 | PN ---
Progress Note (short form) - Note Progress Note: Since 7 pm 12/26/18, patient's heart rate is between 120's- 130's. Patient received Propanolol 60mg and Propanolol 1mg IV Push without any change in the Heart rate. Vitals 1:31 AM 12/27/18: BP 108/68 (MAP 81), HR 133 bpm, spo2 98 % in RA Will give her IV Cardizem 5mg once and reevaluate. Patient is currently asymptomatic and sleeping.
[2018-12-27] MEDS ORDERED: PIPERACILLIN/TAZOBACTAM 2.25 GM VIAL IVPB ONE ×4 (02:15→21:07)
[2018-12-27] MEDS ORDERED: DEXTROSE 5%-WATER - 50 ML IVPB ONE ×4 (02:15→21:08)
[2018-12-27] MEDS: PIPERACILLIN/TAZOB 2.25 GM 2.25 GM in DEXTROSE 5%-WATER - 50 ML IVPB SCH ×4 (02:21→21:16)
[2018-12-27 06:05] LABS: BASO % 0.4 % (0-2.0); EOS % 3.3 % (0-4.5); HEMATOCRIT 26.9 % (32.4-45.2); HEMOGLOBIN 8.5 GM/dL (10.7-15.3); LYMPH % 14.8 % (8-40); MCH 23.9 pg (25.7-33.7); MCHC 31.7 g/dl (32.0-36.0); MEAN CELL VOLUME 75.3 fl (80-96); MEAN PLT VOLUME 8.7 fl (7.5-11.1); MONO % 9.5 % (3.8-10.2); PLATELET COUNT 188 K/MM3 (134-434); RBC 3.57 M/mm3 (3.60-5.2); RDW 19.7 % (11.6-15.6); WHITE BLOOD COUNT 11.9 K/mm3 (4.0-10.0)
[2018-12-27] MEDS: MORPHINE SULFATE 2 MG/ML VIAL IVPUSH PRN ×2 (06:19→21:17)
[2018-12-27 06:52] LABS: ALBUMIN 1.4 g/dl (3.4-5.0); ALK PHOS 58 U/L (45-117); ANION GAP 7 MMOL/L (8-16); BILIRUBIN,TOTAL 0.4 mg/dL (0.2-1); BLOOD UREA NITROGEN 9 mg/dL (7-18); CALCIUM 7.2 mg/dL (8.5-10.1); CHLORIDE 111 mmol/L (98-107); CO2 23 mmol/L (21-32); CREATININE 0.5 mg/dL (0.55-1.3); GLUCOSE,RANDOM 101 mg/dL (74-106); MAGNESIUM 1.6 mg/dL (1.8-2.4); PHOSPHOROUS 1.9 mg/dL (2.5-4.9); POTASSIUM 3.1 mmol/L (3.5-5.1); SGOT/AST 23 U/L (15-37); SGPT/ALT 15 U/L (13-61); SODIUM 140 mmol/L (136-145)
[2018-12-27] MEDS ORDERED: MAGNESIUM 2GM/50ML STERILE WATER IVPB IVPB ONE (06:54)
[2018-12-27] MEDS ORDERED: POTASSIUM PHOSPHATE 40 MM in SODIUM CHLORIDE 250 ML IVPB ONE (06:54)
--- NOTE | 2018-12-27 07:33 | PN ---
Physical Exam: SUBJECTIVE: Patient seen and examined. No shortness of breath, no chest pain. No new c/o. Received a dose of lasix yesterday for pleural effusion and had propranolol escalated to 60mg qid with no improvement of HR from the 130s. Also received iv propranolol and diltiazem but remains in the 130s OBJECTIVE: Vital Signs Period Temp Pulse Resp BP Sys/Germain Pulse Ox Last 24 Hr 97.8 F-99.7 F 101-136 18-26 86-135/58-89 95-98 Vital Signs Temp 97.9 F 12/27/18 06:00 Pulse 134 H 12/27/18 06:00 Resp 22 H 12/27/18 06:00 BP 117/88 12/27/18 06:00 Pulse Ox 98 12/26/18 21:00 Intake & Output 12/26/18 12/26/18 12/27/18 11:59 23:59 11:59 Intake Total 300 50 50 Output Total 1600 250 Balance 300 -1550 -200 Weight 72.6 kg 66.31 kg Intake: IVPB 50 50 Oral 300 Output: Urine 1600 250 Andre 1600 250 Other: Voiding Method Indwelling Catheter Bowel Movement Yes Yes # Bowel Movements 1 1 Weight Measurement Method Built in [facility] Built in [facility] GENERAL: The patient is awake, alert. HEAD: Normal with no signs of trauma. EYES: PERRL, extraocular movements intact, sclera anicteric, conjunctiva clear. ENT: moist mucous membranes. NECK: supple. LEJ LUNGS: Crackles lung base, improved from yesterday HEART: Tachycardic, S1, S2 ABDOMEN: Midline vertical surgical scar with brook. Soft, nontender, nondistended, bowel sounds+ EXTREMITIES: Dependent edema b/l upper extremities, no edema, LE b/l SCDs. LUE peripheral line NEUROLOGICAL: Forgetful, needing reorientation, Cranial nerves II through XII grossly intact. Normal speech, gait not observed. Lines: Andre, 2 peripheral (LEJ, LUE) CBC, BMP 12/27/18 05:30 12/27/18 05:30 Laboratory Results - last 24 hr 12/26/18 12/26/18 12/27/18 05:30 16:30 05:30 WBC 11.9 H RBC 3.57 L Hgb 8.5 L Hct 26.9 L MCV 75.3 L MCH 23.9 L MCHC 31.7 L RDW 19.7 H Plt Count 188 MPV 8.7 Absolute Neuts (auto) 8.5 H Neutrophils % 72.0 Lymphocytes % 14.8 D Monocytes % 9.5 Eosinophils % 3.3 D Basophils % 0.4 Nucleated RBC % 0 Sodium 143 141 Potassium 3.5 3.3 L Chloride 114 H 111 H Carbon Dioxide 21 21 Anion Gap 8 9 BUN 13 10 Creatinine 0.5 L 0.6 Creat Clearance w eGFR > 60 > 60 Random Glucose 63 L 140 H Calcium 6.9 L* 7.2 L Phosphorus 1.8 L Magnesium 1.3 L Total Bilirubin 0.5 AST 18 ALT 13 Alkaline Phosphatase 64 Total Protein 4.2 L Albumin 1.8 L 1.6 L TSH 12/27/18 05:30 WBC RBC Hgb Hct MCV MCH MCHC RDW Plt Count MPV Absolute Neuts (auto) Neutrophils % Lymphocytes % Monocytes % Eosinophils % Basophils % Nucleated RBC % Sodium 140 Potassium 3.1 L Chloride 111 H Carbon Dioxide 23 Anion Gap 7 L BUN 9 Creatinine 0.5 L Creat Clearance w eGFR > 60 Random Glucose 101 Calcium 7.2 L Phosphorus 1.9 L Magnesium 1.6 L Total Bilirubin 0.4 AST 23 ALT 15 Alkaline Phosphatase 58 Total Protein 4.0 L Albumin 1.4 L TSH 3.01 Active Medications Generic Name Dose Route Start Last Admin Trade Name Freq PRN Reason Stop Dose Admin Apixaban 2.5 mg 12/26/18 22:00 12/26/18 21:37 Eliquis - PO 2.5 mg BID OBDULIO Administration Diltiazem HCl 10 mg 12/25/18 11:27 12/26/18 08:07 Cardizem Injection - IVPUSH 10 mg Q4H PRN Administration TACHYCARDIA Fluticasone Propionate 2 spray 12/22/18 10:00 12/26/18 10:15 Flonase - NS 2 spray DAILY OBDULIO Administration Piperacillin Sod/Tazobactam 50 mls @ 100 mls/hr 12/23/18 21:00 12/27/18 02:21 Sod 2.25 gm/ Dextrose IVPB 100 mls/hr Q6H-IV OBDULIO Administration Potassium Chloride 10 meq in 100 mls @ 100 mls/hr 12/27/18 07:00 Potassium Chloride 10 Meq Premix Ivpb - IVPB 12/27/18 08:59 Q60M OBDULIO Potassium Phosphate 40 mm/ 263.3333 mls @ 62.5 mls/hr 12/27/18 06:54 Sodium Chloride IVPB 12/27/18 11:06 ONCE ONE Morphine Sulfate 2 mg 12/25/18 13:22 12/27/18 06:19 Morphine Sulfate IVPUSH 2 mg Q4H PRN Administration PAIN LEVEL 7 - 10 Ondansetron HCl 4 mg 12/21/18 23:40 12/22/18 12:39 Zofran Injection IVPUSH 4 mg Q6H PRN Administration NAUSEA Pantoprazole Sodium 40 mg 12/21/18 19:15 12/26/18 09:40 Protonix Iv IVPUSH 40 mg DAILY OBDULIO Administration Propranolol HCl 1 mg 12/25/18 11:28 12/27/18 00:42 Inderal Injection - IVPUSH 1 mg Q1H PRN Administration TACHYCARDIA Propranolol HCl 60 mg 12/26/18 14:00 12/26/18 21:37 Inderal - PO 60 mg QID OBDULIO Administration ECHO-No hemodynamically signif (Mild aortic sclerosis), hyperdynamic LV, RV ( dilated), RA mildly dilated, LA nl size, mild to mofd mitral annular calcification/ MR, ASSESSMENT/PLAN: 83 year old female with PMH atrial fibrillation on Eliquis, GERD, esophagitis, dementia, hallucinations, ataxia, HTN, benign neoplasm of cerebral meninges, who presented from shelter 12/21/18 for nausea and vomiting, found to be in atrial fibrillation with RVR, for to have bowel obstruction secondary to colonic mass, is now s/p right hemicolectomy (12/22/18), placed in ICU Post surgery for tachycardia and hypotension with aflutter and persistent RVR. Neuro Dementia- needing constant reorientation Mirtazapine, donepezil not yet resumed postop Mx for septic shock post op with Zosyn, levophed, then placed on Amiodarone gtt GI -Pt presented in bowel obstruction secondary to colonic mass, -now s/p right hemicolectomy (12/22/18) -Post op day 5 -Obstructive ascending colon mass -CA-125 elevated-45.3 -Pain control: morphine 2 mg IV q4H PRN # Hx of GI bleed previous admission #GERD hx - Hgb- slightly trended down, repeat -Protonix IV 40 mg daily -Zofran 4 mg IV Q6 PRN -Per GI- For follow-up colonoscopy as outpatient Cardiology #Atrial flutter -B/l pleural effusions persisting since 12/26 -iv lasix 40mg once ( 12/26 and 12/27) #HTN-Labile BP systolic < 90 this am but MAP 74 -Propranolol PO to 60 mg PO QID -Propranolol 1 mg IV push Q1 hour -Eliquis 5 mg PO BID -ECHO-see above -pressors d/c 12/24/17, -Pt transitioned from Amiodarone to IV Diltiazem pushes with minimal response ID #Leukocytosis- improving -WBC 17.4 >>11.9 -UA 12/25/18 negative for UTI -On Zosyn for suspected septic shock s/p surgery started 12/23/18 -B/L pleural effusions on CXR concerning for high output failure, no infiltrates Metabolic Electrolyte abnormalities -Phosph, Mg, K- repleted #FEN/Lines -Andre catheter -No IV fluids -Left sided line is an EJ, confirmed with CXR today 12/26/18 #DIET -clear liquids #DISPO - MICU pending rate control Visit type - Emergency Visit Emergency Visit: Yes ED Registration Date: 12/22/18 Care time: The patient presented to the Emergency Department on the above date and was hospitalized for further evaluation of their emergent condition. - New Patient This patient is new to me today: No - Critical Care Critical Care patient: Yes Total Critical Care Time (in minutes): 35 Critical Care Statement: The care of this patient involved high complexity decision making to prevent further life threatening deterioration of the patient 's condition and/or to evaluate & treat vital organ system(s) failure or risk of failure. - Discharge Referral Referred to [facility] Med P.C.: No
[2018-12-27] MEDS: KCL 10 MEQ IVPB 10 MEQ/100 ML INFUS.BAG IVPB SCH ×2 (07:57→09:09)
[2018-12-27] MEDS ORDERED: POTASSIUM PHOSPHATE 40 MM in SODIUM CHLORIDE 500 ML IVPB ONE (08:15)
[2018-12-27] MEDS ORDERED: PT OWN MED DRAWER 7, Y5N ONE ×2 (09:04→09:21)
[2018-12-27] MEDS: PANTOPRAZOLE SODIUM 40 MG VIAL IVPUSH SCH (09:10)
[2018-12-27] MEDS: APIXABAN 2.5 MG TABLET PO SCH (09:11)
[2018-12-27] MEDS: FLUTICASONE PROP 0.05% 16 GM NASAL SPRAY NS SCH (09:11)
[2018-12-27] MEDS ORDERED: FUROSEMIDE 40 MG/4 ML INJECTABLE VIAL IVPUSH ONE (10:37)
--- NOTE | 2018-12-27 10:57 | PN ---
Progress Note (short form) - Note Progress Note: s: no chest pain, palps, dizziness, lightheadedness Current Medications Apixaban (Eliquis -) 2.5 mg PO BID [facility] Last Admin: 12/27/18 09:11 Dose: 2.5 mg Diltiazem HCl (Cardizem Injection -) 10 mg IVPUSH Q4H PRN PRN Reason: TACHYCARDIA Last Admin: 12/26/18 08:07 Dose: 10 mg Fluticasone Propionate (Flonase -) 2 spray NS DAILY [facility] Last Admin: 12/27/18 09:11 Dose: 2 spray Piperacillin Sod/Tazobactam (Sod 2.25 gm/ Dextrose) 50 mls @ 100 mls/hr IVPB Q6H-IV [facility] Last Admin: 12/27/18 09:09 Dose: 100 mls/hr Potassium Phosphate 40 mm/ (Sodium Chloride) 513.3333 mls @ 73.333 mls/hr IVPB ONCE ONE Stop: 12/27/18 15:14 Last Admin: 12/27/18 09:18 Dose: 73.333 mls/hr Morphine Sulfate (Morphine Sulfate) 2 mg IVPUSH Q4H PRN PRN Reason: PAIN LEVEL 7 - 10 Last Admin: 12/27/18 06:19 Dose: 2 mg Ondansetron HCl (Zofran Injection) 4 mg IVPUSH Q6H PRN PRN Reason: NAUSEA Last Admin: 12/22/18 12:39 Dose: 4 mg Pantoprazole Sodium (Protonix Iv) 40 mg IVPUSH DAILY [facility] Last Admin: 12/27/18 09:10 Dose: 40 mg Propranolol HCl (Inderal Injection -) 1 mg IVPUSH Q1H PRN PRN Reason: TACHYCARDIA Last Admin: 12/27/18 00:42 Dose: 1 mg Propranolol HCl (Inderal -) 60 mg PO QID [facility] Last Admin: 12/27/18 09:27 Dose: 60 mg - Objective Vital Signs Period Temp Pulse Resp BP Sys/Germain Pulse Ox Last 24 Hr 97.8 F-98.3 F 101-136 18-26 86-118/58-89 98-98 Constitutional: Yes: Well Nourished, No Distress, Calm Cardiovascular: Yes: Regular Rate and Rhythm, S1, S2. No: Gallop, Murmur Respiratory: Yes: Regular, CTA Bilaterally (anteriorly). No: Accessory Muscle Use, Rales, Wheezes Extremities: No: Cold Edema: No Neurological: Yes: Alert, Oriented Psychiatric: No: Agitated Assessment/Plan ecg: aflutter with 2:1 avb, vr 127, no ischemic changes echo 07/2015: nl lv/rv, no sig valve path echo 07/2015: nl lv/rv, no sig valve path cxr admission: clear lungs CXR 12/26: betzy pleural effusion echo 12/2018 small LV cavity, hyperdynamic LV function, RV mild to mod dilated, RV hyperdynamic, LA nl, RA mildy dilated. mild ao valve sclerosis with no , mild to mod MAC, mild to mod MR with eccentric jet tele: AFL 2:1 in 140s a/p: 83 f hx dementia, afib/flutter, gerd, htn, tia, sent from [place] for coffee ground emesis. aflutter: - was on diltiazem 60 mg QID and propranolol 120 mg BID at home-->npo postop bowel surgery with tachycardia and hypotensive on levophed-->amio gtt started with persistent tachycardia. hemodynamics improved-->amio d/c'd, prn iv diltiazem ordered - 12/25: H?R 140s, no response to IV diltiazem pushes, SBP dropped to 80s. d/w'd icu team: will start non-chronotropic vasoconstrictor pressor, then initiate low dose PO and IV propranolol trial for HR control. - eliquis held briefly during 12/05 admit with GIB, resumed on discharge with plan for outpt GI scopes. H/H were stable when arrived this time with SBO, eliquis now on hold for surgery - 12/26: HR remains 130s, will increase propranolol to 60 mg QID (home dose is propranolol long acting 120 mg BID). If BP tolerates would restart PO diltiazem as well, at home was on 60 mg QID - 12/27: eliquis resumed, HR 130s. change eliquis to 5 mg BID dosing (age >80 however she is >60 kg and Cr <1.5, does not meet criteria for low dose and was on full dose prior). BP improved today, will restart diltiazem 60 mg Q6H pleural effusions - noted on CXR, rales on exam - IV lasix / - rales improved, CXR stable. patient not hypoxic on room air - would hold lasix today - dc IV fluids - monitor Cr, lytes, daily weights hypotension: -postop hypotension s/p bowel surgery -improving htn: -monitor off meds given hypotension GIB: -recent admit for GIB, hgb stable here -plans per GI were outpt scopes sbo: -s/p surgery est time spent in review of data, pt exam, and formulating mgmt plan of potentially life-threatening conditions = 35 min
--- NOTE | 2018-12-27 11:29 | PN ---
Teaching Attending Note Name of Resident: Kierra Brown ATTENDING PHYSICIAN STATEMENT I saw and evaluated the patient. I reviewed the resident's note and discussed the case with the resident. I agree with the resident's findings and plan as documented. SUBJECTIVE: Pt seen and examined in the ICU. Blood pressures better but still with in rapid atrial fibrillation. Denies shortness of breath, chest pain or palpitations. Tolerating PO. OBJECTIVE: Vital Signs Period Temp Pulse Resp BP Sys/Germain Pulse Ox Last 24 Hr 97.8 F-98.3 F 101-136 18-26 86-118/58-89 98-98 Intake & Output 12/24/18 12/25/18 12/26/18 12/27/18 23:59 23:59 23:59 23:59 Intake Total 1700 350 50 Output Total 500 1600 250 Balance 1200 -1250 -200 Weight 72.6 kg 66.31 kg Gen: NAD at rest Heart: tachycardic, irregular Lung: decreased breath sounds at the bases Abd: soft, incision clean Ext: no edema CBC, BMP 12/27/18 05:30 12/27/18 05:30 Active Medications Apixaban (Eliquis -) 5 mg PO BID [facility]BD[facility] Diltiazem HCl (Cardizem Injection -) 10 mg IVPUSH Q4H PRN PRN Reason: TACHYCARDIA Last Admin: 12/26/18 08:07 Dose: 10 mg Diltiazem HCl (Cardizem -) 60 mg PO Q6HPO OBD[facility] Fluticasone Propionate (Flonase -) 2 spray NS DAILY [facility] Last Admin: 12/27/18 09:11 Dose: 2 spray Piperacillin Sod/Tazobactam (Sod 2.25 gm/ Dextrose) 50 mls @ 100 mls/hr IVPB Q6H-IV OBD[facility]IO Last Admin: 12/27/18 09:09 Dose: 100 mls/hr Potassium Phosphate 40 mm/ (Sodium Chloride) 513.3333 mls @ 73.333 mls/hr IVPB ONCE ONE Stop: 12/27/18 15:14 Last Admin: 12/27/18 09:18 Dose: 73.333 mls/hr Morphine Sulfate (Morphine Sulfate) 2 mg IVPUSH Q4H PRN PRN Reason: PAIN LEVEL 7 - 10 Last Admin: 12/27/18 06:19 Dose: 2 mg Ondansetron HCl (Zofran Injection) 4 mg IVPUSH Q6H PRN PRN Reason: NAUSEA Last Admin: 12/22/18 12:39 Dose: 4 mg Pantoprazole Sodium (Protonix Iv) 40 mg IVPUSH DAILY [facility] Last Admin: 12/27/18 09:10 Dose: 40 mg Propranolol HCl (Inderal Injection -) 1 mg IVPUSH Q1H PRN PRN Reason: TACHYCARDIA Last Admin: 12/27/18 00:42 Dose: 1 mg Propranolol HCl (Inderal -) 60 mg PO Q6H OBDULIO ASSESSMENT AND PLAN: Large Bowel Obstruction/Ascending Colon Mass s/p ex-lap/right hemicolectomy/primary ileotransverse anastamosis Atrial Fibrillation/Flutter with RVR HTN GERD Dementia - pain control - incentive spirometry - rate control per cardiology - anticoagulation resumed - PO as tolerated - on antibiotics per ID - replete lytes - can monitor on telemetry
[2018-12-27] MEDS: dilTIAZem HCL 60 MG TABLET (FP) PO SCH ×3 (11:49→23:15)
--- NOTE | 2018-12-27 12:09 | PN ---
Progress Note, Physician History of Present Illness: clinically patient no stable still tachycardiac cardizem dose increased patient otherwise no issues - Current Medication List Current Medications: Active Medications Apixaban (Eliquis -) 5 mg PO BID [facility] Diltiazem HCl (Cardizem Injection -) 10 mg IVPUSH Q4H PRN PRN Reason: TACHYCARDIA Last Admin: 12/26/18 08:07 Dose: 10 mg Diltiazem HCl (Cardizem -) 60 mg PO Q6HPO [facility] Last Admin: 12/27/18 11:49 Dose: 60 mg Fluticasone Propionate (Flonase -) 2 spray NS DAILY [facility] Last Admin: 12/27/18 09:11 Dose: 2 spray Piperacillin Sod/Tazobactam (Sod 2.25 gm/ Dextrose) 50 mls @ 100 mls/hr IVPB Q6H-IV [facility] Last Admin: 12/27/18 09:09 Dose: 100 mls/hr Potassium Phosphate 40 mm/ (Sodium Chloride) 513.3333 mls @ 73.333 mls/hr IVPB ONCE ONE Stop: 12/27/18 15:14 Last Admin: 12/27/18 09:18 Dose: 73.333 mls/hr Morphine Sulfate (Morphine Sulfate) 2 mg IVPUSH Q4H PRN PRN Reason: PAIN LEVEL 7 - 10 Last Admin: 12/27/18 06:19 Dose: 2 mg Ondansetron HCl (Zofran Injection) 4 mg IVPUSH Q6H PRN PRN Reason: NAUSEA Last Admin: 12/22/18 12:39 Dose: 4 mg Pantoprazole Sodium (Protonix Iv) 40 mg IVPUSH DAILY [facility] Last Admin: 12/27/18 09:10 Dose: 40 mg Propranolol HCl (Inderal Injection -) 1 mg IVPUSH Q1H PRN PRN Reason: TACHYCARDIA Last Admin: 12/27/18 00:42 Dose: 1 mg Propranolol HCl (Inderal -) 60 mg PO Q6H [facility] - Objective Vital Signs: Vital Signs Temperature 98.3 F 12/27/18 10:00 Pulse Rate 132 H 12/27/18 10:00 Respiratory Rate 22 H 12/27/18 10:00 Blood Pressure 113/64 12/27/18 10:00 O2 Sat by Pulse Oximetry (%) 98 12/27/18 09:00 Constitutional: Yes: No Distress, Calm Gastrointestinal: Yes: Normal Bowel Sounds, Soft Musculoskeletal: Yes: WNL Extremities: Yes: WNL Neurological: Yes: Alert, Oriented Psychiatric: Yes: Alert, Oriented Labs: CBC, BMP 12/27/18 05:30 12/27/18 05:30 INR, PTT INR 1.13 (0.83-1.09) H 12/21/18 09:35 - ....Imaging Chest X-ray: Report Reviewed, Image Reviewed Assessment/Plan - Problems (1) Colon obstruction Code(s): K56.609 - UNSP INTESTNL OBST, UNSP TO PARTIAL VERSUS COMPLETE OBST (2) Atrial fibrillation with RVR Code(s): I48.91 - UNSPECIFIED ATRIAL FIBRILLATION (3) Dementia Code(s): F03.90 - UNSPECIFIED DEMENTIA WITHOUT BEHAVIORAL DISTURBANCE (4) Esophagitis Code(s): K20.9 - ESOPHAGITIS, UNSPECIFIED (5) GERD (gastroesophageal reflux disease) Code(s): K21.9 - GASTRO-ESOPHAGEAL REFLUX DISEASE WITHOUT ESOPHAGITIS (6) Hypertension Code(s): I10 - ESSENTIAL (PRIMARY) HYPERTENSION Qualifiers: Hypertension type: essential hypertension Qualified Code(s): I10 - Essential (primary) hypertension leukocytosis plan continue current abx diuresing her hydration all cx results noted rest as per icu wbc trended down cc 35 min
--- NOTE | 2018-12-27 12:25 | PN ---
Progress Note (short form) - Note Progress Note: Renal follow up Pt seen and examined in the ICU awake and alert feels uncomfortable but denies any pain or sob making urine on room air Vital Signs Temperature 98.3 F 12/27/18 10:00 Pulse Rate 132 H 12/27/18 10:00 Respiratory Rate 22 H 12/27/18 10:00 Blood Pressure 113/64 12/27/18 10:00 O2 Sat by Pulse Oximetry (%) 98 12/27/18 09:00 Intake & Output 12/24/18 12/25/18 12/26/18 12/27/18 23:59 23:59 23:59 23:59 Intake Total 1700 350 50 Output Total 500 1600 250 Balance 1200 -1250 -200 Weight 72.6 kg 66.31 kg NAD RRR, No M/R CTA, no rales or wheeze soft. ND, midline incision noted no bladder distension No LE edema CBC, BMP 12/27/18 05:30 12/27/18 05:30 Current Medications Apixaban (Eliquis -) 5 mg PO BID OBDULIO Diltiazem HCl (Cardizem Injection -) 10 mg IVPUSH Q4H PRN PRN Reason: TACHYCARDIA Last Admin: 12/26/18 08:07 Dose: 10 mg Diltiazem HCl (Cardizem -) 60 mg PO Q6HPO OBDULIO Last Admin: 12/27/18 11:49 Dose: 60 mg Fluticasone Propionate (Flonase -) 2 spray NS DAILY OBDULIO Last Admin: 12/27/18 09:11 Dose: 2 spray Piperacillin Sod/Tazobactam (Sod 2.25 gm/ Dextrose) 50 mls @ 100 mls/hr IVPB Q6H-IV OBDULIO Last Admin: 12/27/18 09:09 Dose: 100 mls/hr Potassium Phosphate 40 mm/ (Sodium Chloride) 513.3333 mls @ 73.333 mls/hr IVPB ONCE ONE Stop: 12/27/18 15:14 Last Admin: 12/27/18 09:18 Dose: 73.333 mls/hr Morphine Sulfate (Morphine Sulfate) 2 mg IVPUSH Q4H PRN PRN Reason: PAIN LEVEL 7 - 10 Last Admin: 12/27/18 06:19 Dose: 2 mg Ondansetron HCl (Zofran Injection) 4 mg IVPUSH Q6H PRN PRN Reason: NAUSEA Last Admin: 12/22/18 12:39 Dose: 4 mg Pantoprazole Sodium (Protonix Iv) 40 mg IVPUSH DAILY [facility] Last Admin: 12/27/18 09:10 Dose: 40 mg Propranolol HCl (Inderal Injection -) 1 mg IVPUSH Q1H PRN PRN Reason: TACHYCARDIA Last Admin: 12/27/18 00:42 Dose: 1 mg Propranolol HCl (Inderal -) 60 mg PO Q6H [facility] 83 year old woman with hx of GERD, Dementia, Hypertension, Benigin neoplasm of cerebral maninges who presented with N/V and found to have SBO s/p Ex-lap now with oliguria. #Oliguria with preserved renal function #SBO s/p Ex-lap #Hypotenson/shock #Anemia #Hx of Hypertension #Hypokalemia #Hypophosphatemia Renal function stable urine output considerably improved s/o IV Lasix PRN Lasix as needed for management of respiratory status and effusions Supplement K and Phos with IV K-Phos Trend renal function and electrolytes daily Rate control as per cardiology Thank you Tono Collins DO
--- NOTE | 2018-12-27 12:31 | PN ---
Progress Note, SHIP SUPERINTENDENT - Note Progress Note: Selected Entries 12/26/18 12/26/18 12/26/18 09:38 15:00 19:35 Breakfast 75% Lunch 75% Supper 25% 12/27/18 09:36 Breakfast 75% Lunch Supper Tolerating diet. No further f/u indicated.
--- NOTE | 2018-12-27 12:37 | PN ---
Progress Note, Physician Chief Complaint: LBO History of Present Illness: 83 yo female PMH reflux, esophagitis, dementia, hallucinations, ataxia, HTN, benign neoplasm of cerebral meninges, who presents to the emergency department via EMS from detention due to nausea and vomiting that started today. She has been stable since surgery. - Current Medication List Current Medications: Active Medications Apixaban (Eliquis -) 5 mg PO BID OBDULIO Diltiazem HCl (Cardizem Injection -) 10 mg IVPUSH Q4H PRN PRN Reason: TACHYCARDIA Last Admin: 12/26/18 08:07 Dose: 10 mg Diltiazem HCl (Cardizem -) 60 mg PO Q6HPO OBDULIO Last Admin: 12/27/18 11:49 Dose: 60 mg Fluticasone Propionate (Flonase -) 2 spray NS DAILY OBDULIO Last Admin: 12/27/18 09:11 Dose: 2 spray Piperacillin Sod/Tazobactam (Sod 2.25 gm/ Dextrose) 50 mls @ 100 mls/hr IVPB Q6H-IV OBDULIO Last Admin: 12/27/18 09:09 Dose: 100 mls/hr Potassium Phosphate 40 mm/ (Sodium Chloride) 513.3333 mls @ 73.333 mls/hr IVPB ONCE ONE Stop: 12/27/18 15:14 Last Admin: 12/27/18 09:18 Dose: 73.333 mls/hr Morphine Sulfate (Morphine Sulfate) 2 mg IVPUSH Q4H PRN PRN Reason: PAIN LEVEL 7 - 10 Last Admin: 12/27/18 06:19 Dose: 2 mg Ondansetron HCl (Zofran Injection) 4 mg IVPUSH Q6H PRN PRN Reason: NAUSEA Last Admin: 12/22/18 12:39 Dose: 4 mg Pantoprazole Sodium (Protonix Iv) 40 mg IVPUSH DAILY OBDULIO Last Admin: 12/27/18 09:10 Dose: 40 mg Propranolol HCl (Inderal Injection -) 1 mg IVPUSH Q1H PRN PRN Reason: TACHYCARDIA Last Admin: 12/27/18 00:42 Dose: 1 mg Propranolol HCl (Inderal -) 60 mg PO Q6H OBDULIO - Objective Vital Signs: Vital Signs Temperature 98.3 F 12/27/18 10:00 Pulse Rate 132 H 12/27/18 10:00 Respiratory Rate 22 H 12/27/18 10:00 Blood Pressure 113/64 12/27/18 10:00 O2 Sat by Pulse Oximetry (%) 98 12/27/18 09:00 Vital Signs Period Temp Pulse Resp BP Sys/Germain Pulse Ox Last 24 Hr 97.8 F-98.2 F 100-121 18-21 102-136/51-98 100-100 Constitutional: Yes: Well Nourished, No Distress, Calm Eyes: Yes: Conjunctiva Clear, EOM Intact HENT: Yes: Atraumatic, Normocephalic Neck: Yes: Supple, Trachea Midline Cardiovascular: Yes: Regular Rate and Rhythm, S1, S2 Respiratory: Yes: Regular, CTA Bilaterally Gastrointestinal: Yes: Normal Bowel Sounds, Soft. No: Tenderness ...Rectal Exam: Yes: Deferred Genitourinary: No: CVA Tenderness - Left, CVA Tenderness - Right Breast(s): No: Discharge from Nipple, Skin Changes Musculoskeletal: No: Muscle Pain, Muscle Weakness Extremities: No: Cool, Cyanosis Edema: Yes Edema: LUE: Trace, RUE: Trace, LLE: Trace, RLE: Trace Peripheral Pulses: Left Radial: 2+, Right Radial: 2+, Left Doralis Pedis: 2+, Right Dorsalis Pedis: 2+, Left Femoral: 2+, Right Femoral: 2+ Integumentary: No: Jaundice, Skin Tear Wound/Incision: Yes: Clean/Dry, Well Approximated, Open to air Neurological: Yes: Alert, Oriented Psychiatric: Yes: Alert, Oriented Labs: CBC, BMP 12/27/18 05:30 12/27/18 05:30 INR, PTT INR 1.13 (0.83-1.09) H 12/21/18 09:35 Problem List - Problems (1) Colon obstruction Assessment/Plan: 83yo female returned from [place] the next morning after discharge with feculent emesis and an identified large bowel obstruction suspicious for malignancy. this may be a missed diagnosis from previous admission. POD#4 s/p Right hemicolectomy for an obstructing colon mass Diet as tolerated IVF hydration IV antibiotics per ID trend labs Early mobilization OOB encourage IS ID consult for continued antibiotics This patient is critically ill. Time spent reviewing chart, examining patient, talking with providers and/or family and documentation is 35 minutes. Code(s): K56.609 - UNSP INTESTNL OBST, UNSP TO PARTIAL VERSUS COMPLETE OBST (2) Atrial fibrillation with RVR Code(s): I48.91 - UNSPECIFIED ATRIAL FIBRILLATION (3) Dementia Code(s): F03.90 - UNSPECIFIED DEMENTIA WITHOUT BEHAVIORAL DISTURBANCE (4) Esophagitis Code(s): K20.9 - ESOPHAGITIS, UNSPECIFIED (5) GERD (gastroesophageal reflux disease) Code(s): K21.9 - GASTRO-ESOPHAGEAL REFLUX DISEASE WITHOUT ESOPHAGITIS (6) Hypertension Code(s): I10 - ESSENTIAL (PRIMARY) HYPERTENSION Qualifiers: Hypertension type: essential hypertension Qualified Code(s): I10 - Essential (primary) hypertension
--- NOTE | 2018-12-27 12:56 | OP ---
Operative Date: 12/22/18 Pre-Operative Diagnosis: large bowel obstruction Operation: Exploratory laparotomy, right toribio colectomy with primary ileotransverse stapled anastomosis Findings: obstructing ascending colon mass, obvious transition point. large palpable mesenteric lymph nodes taken en-bloc in the root of the mestentary. Post-Operative Diagnosis: Same as Pre-op Surgeon: Javier Navarro Paradichlorobenzene Tender: Mundo Beaver Anesthesiologist/EDGE INKER: Xi Mendoza Anesthesia: General Specimens Removed: terminal ileum, ileocecal valve, right colon and portion of transverese Estimated Blood Loss (mls): 100 Drains & Tubes with Location: NGT, cervantes Drains, Volume Out (mls): 100 (UOP) Fluid Volume Replaced (mls): 3,500 DATE OF DICTATION: 12/23/2018 With both arms extended at 90 degrees perpendicular to the body's midline axis, the patient had lower extremity SCDs. She was induced with general anesthesia, endotracheally intubated. At which point, Anesthesia placed internal monitors, arterial line in the left radial artery and a central line in the right internal jugular vein. After this was done, patient was in stable condition. The anterior abdominal wall was clipped, prepped, and draped in standard surgical fashion. A Cervantes was placed as well. Patient already had an NG tube. A formal timeout identifying the operative site and the procedure was completed with all parties in agreement. We began with first a midline laparotomy incision which was scribed on the skin. It was incised with a 15-blade scalpel, deepened and widened through the subcutaneous tissue. Care was taken to dissect down to the median raphe and alba of the rectus muscle which was opened under direct visualization. A sharp entry was made into the abdomen with Metzenbaum and clamp, and then, a finger was used to protect the intraabdominal viscera while the remainder of the laparotomy incision was opened. We began with a systematic exploration of the abdomen. A culture was sent from the ascites which appeared somewhat murky and ottoniel that was suctioned from the lower portion of the abdomen. The small bowel was eviscerated, which appeared normal. It was run from the ligament of Treitz to the ileocecal valve. The cecum appeared distended and was traced up along the ascending colon. At which point, a palpable mass was identified. The liver appeared normal. Gallbladder, remainder of the intraabdominal viscera appeared normal. No implants were detected in the omentum or on the serosa of any surface. The NG tube was checked for position. At which point, we began first with opening the line of Toldt along the right colon. It was elevated towards the midline. Opening Toldt, we were able to dissect and pick a point for transection in the terminal ileum. A point approximately 4-5 cm proximal in the terminal ileum was selected and a window in the mesentery was created and a HUNTER stapler 60 mm was used to transect the terminal ileum. We began then to dissect along the mesentery for the right side of the colon. When we opened Toldt all the way up to the hepatic flexure, we carried the dissection down, and the mesentery of the colon became apparent. We used a LigaSure device then to transect the mesentery deep on the root. There were palpable lymph nodes along the right colic artery supply. They were taken en bloc, and the right colic itself was tied with 0 silk. We proceeded then with additional deep root mesentery dissection of the right side of the colon to mid transverse. A cut point was then identified after transecting a portion of the gastrocolic or the omentum to identify a portion of the transverse colon which was appropriate based on the right branch of the middle colic artery. We then proceeded then creating a window and an Endo HUNTER size 60 stapler was again used to transect the transverse colon. The remainder of the specimen with the mesenteric root was sent for pathologic diagnosis and passed off of the field, after it was removed with the LigaSure device. We proceeded then with irrigation of the site. The 2 cut ends of transverse and ileum were approximated towards each other. A bit of the mesentery was closed to prevent internal herniation. After approximation , we began to fashion our anastomosis in standard [id number] stapled anastomosis fashion using an Endo HUNTER 60 to create a common channel after lumens were opened. In the lumen of the small bowel where there was obvious obstruction, we took this opportunity to decompress the remainder of the small bowel, milking all of the obstructed gastroenteric contents and succulent succus out of this limb with minimal spillage. We then controlled the remaining enterocolotomy and closed it with a TA size 90-mm blue load. Care was taken at this time after the anastomosis was completed to buttress it with omentum of the remainder of the gastrocolic which was present in the area. We then turned our attention to irrigating the abdomen 1 final time and laying the bowel into its normal anatomic position with the small bowel appropriately placed into the abdomen and omentum covering it. The area was then finally cleaned. The abdomen was suctioned after irrigation with 2 L of sterile irrigation fluid. The patient was then closed from the superior and inferior poles of the incision using number 1 loop PDS in a running fashion towards the midline and was tied above the umbilicus. The knot itself was cut and buried using a 3-0 Vicryl interrupted stitch, and then, the skin was irrigated and closed with brook. The patient was stable throughout the procedure. Heart rate remained relatively unchanged. She made 100 mL of urine. All the counts were correct prior to closure of the abdomen. MD JACLYN Chandra/[id number] MTDD
[2018-12-27 13:05] LABS: HEMATOCRIT 27.5 % (32.4-45.2); HEMOGLOBIN 8.8 GM/dL (10.7-15.3); MCH 24.2 pg (25.7-33.7); MEAN CELL VOLUME 75.6 fl (80-96); MEAN PLT VOLUME 8.6 fl (7.5-11.1); PLATELET COUNT 219 K/MM3 (134-434); RBC 3.63 M/mm3 (3.60-5.2); RDW 19.3 % (11.6-15.6)
--- NOTE | 2018-12-27 18:31 | PN ---
Physical Exam: SUBJECTIVE: Patient seen and examined. She has no complaints. OBJECTIVE: Vital Signs Period Temp Pulse Resp BP Sys/Germain Pulse Ox Last 24 Hr 97.9 F-98.8 F 122-136 20-25 96-117/56-88 98-98 GENERAL: The patient is awake, alert, and confused, in no acute distress. LUNGS: Breath sounds equal, clear to auscultation bilaterally, no wheezes, no crackles, no accessory muscle use. HEART: Regular rhythm, tachycardic, S1, S2 without murmur, rub or gallop. ABDOMEN: Soft, nontender, nondistended, normoactive bowel sounds, no guarding, no rebound, no hepatosplenomegaly, no masses. EXTREMITIES: 2+ pulses, warm, well-perfused, no edema. Laboratory Results - last 24 hr 12/27/18 12/27/18 12/27/18 05:30 05:30 12:54 WBC 11.9 H 13.0 H RBC 3.57 L 3.63 Hgb 8.5 L 8.8 L Hct 26.9 L 27.5 L MCV 75.3 L 75.6 L MCH 23.9 L 24.2 L MCHC 31.7 L 32.0 RDW 19.7 H 19.3 H Plt Count 188 219 MPV 8.7 8.6 Absolute Neuts (auto) 8.5 H Neutrophils % 72.0 Lymphocytes % 14.8 D Monocytes % 9.5 Eosinophils % 3.3 D Basophils % 0.4 Nucleated RBC % 0 Sodium 140 Potassium 3.1 L Chloride 111 H Carbon Dioxide 23 Anion Gap 7 L BUN 9 Creatinine 0.5 L Creat Clearance w eGFR > 60 Random Glucose 101 Calcium 7.2 L Phosphorus 1.9 L Magnesium 1.6 L Total Bilirubin 0.4 AST 23 ALT 15 Alkaline Phosphatase 58 Total Protein 4.0 L Albumin 1.4 L TSH 3.01 Active Medications Generic Name Dose Route Start Last Admin Trade Name Freq PRN Reason Stop Dose Admin Apixaban 5 mg 12/27/18 10:57 Eliquis - PO BID OBDULIO Diltiazem HCl 10 mg 12/25/18 11:27 12/26/18 08:07 Cardizem Injection - IVPUSH 10 mg Q4H PRN Administration TACHYCARDIA Diltiazem HCl 60 mg 12/27/18 12:00 12/27/18 17:23 Cardizem - PO 60 mg Q6HPO OBDULIO Administration Fluticasone Propionate 2 spray 12/22/18 10:00 12/27/18 09:11 Flonase - NS 2 spray DAILY OBDULIO Administration Piperacillin Sod/Tazobactam 50 mls @ 100 mls/hr 12/23/18 21:00 12/27/18 15:22 Sod 2.25 gm/ Dextrose IVPB 100 mls/hr Q6H-IV OBDULIO Administration Morphine Sulfate 2 mg 12/25/18 13:22 12/27/18 06:19 Morphine Sulfate IVPUSH 2 mg Q4H PRN Administration PAIN LEVEL 7 - 10 Ondansetron HCl 4 mg 12/21/18 23:40 12/22/18 12:39 Zofran Injection IVPUSH 4 mg Q6H PRN Administration NAUSEA Pantoprazole Sodium 40 mg 12/21/18 19:15 12/27/18 09:10 Protonix Iv IVPUSH 40 mg DAILY OBDULIO Administration Propranolol HCl 1 mg 12/25/18 11:28 12/27/18 00:42 Inderal Injection - IVPUSH 1 mg Q1H PRN Administration TACHYCARDIA Propranolol HCl 60 mg 12/27/18 16:00 12/27/18 15:23 Inderal - PO 60 mg Q6H OBDULIO Administration ASSESSMENT/PLAN: 1. Atrial flutter - Off amiodarone drip - Continue propranolol, Eliquis - Cardizem restarted 2. Large bowel obstruction secondary to right colon mass - s/p exploratory laparotomy, right hemicolectomy, primary ileotransverse anastamosis on 12/22 - On Zosyn empirically for leukocytosis as per ID - Tolerating diet 3. Hypotension - Improved 4. Hypokalemia - Replete potassium 5. Hypophosphatemia - Replace phosphorus 6. HTN - Continue Cardizem, propranolol 7. GERD - Continue Protonix 8. Dementia 9. Anemia - Hemoglobin is stable - continue to monitor Visit type - Emergency Visit Emergency Visit: Yes ED Registration Date: 12/22/18 Care time: The patient presented to the Emergency Department on the above date and was hospitalized for further evaluation of their emergent condition. - New Patient This patient is new to me today: Yes Date on this admission: 12/27/18 - Critical Care Critical Care patient: No - Discharge Referral Referred to [facility] Med P.C.: No
[2018-12-27] MEDS: APIXABAN 5 MG TABLET PO SCH (21:16)
[2018-12-28] MEDS ORDERED: DEXTROSE 5%-WATER - 50 ML IVPB ONE ×4 (01:00→21:19)
[2018-12-28] MEDS ORDERED: PIPERACILLIN/TAZOBACTAM 2.25 GM VIAL IVPB ONE ×4 (01:00→21:19)
[2018-12-28] MEDS: PIPERACILLIN/TAZOB 2.25 GM 2.25 GM in DEXTROSE 5%-WATER - 50 ML IVPB SCH ×4 (02:14→21:29)
--- NOTE | 2018-12-28 05:56 | PN ---
Physical Exam: SUBJECTIVE: 83 year old female with PMH atrial fibrillation on Eliquis, GERD, esophagitis, dementia, hallucinations, ataxia, HTN, benign neoplasm of cerebral meninges, who presents to the emergency department via EMS from assisted 12/21/18 due to nausea and vomiting. Pt was in atrial fibrillation with RVR at presentation. Pt was recently admitted to [facility] 12/13/18-12/20/18 for coffee ground emesis, EGD was negative, colonoscopy was planned for outpatient secondary to electrolyte imbalance and tachycardia. Abdominal CT w/o contrast 12/21/18 shows diffuse to moderate marked dilatation of the small bowel including the terminal ileum with significant dilatation of the cecum and proximal ascending colon up to a point of transition seen in the proximal/mid ascending colon where there is suggestion of wall thickening and collapse of the rest of the colon consistent with obstruction. Pt had right hemicolectomy for obstruction . Post surgery pt was tachycardic and hypotensive. Pt has been difficult to rate control, but has had stable blood pressures over night, and was reported to intermittently have HRs in the 90s over night. Pt reported mild suprapubic discomfort. Pt denied chest pain, shortness of breath. OBJECTIVE: Vital Signs Period Temp Pulse Resp BP Sys/Germain Pulse Ox Last 24 Hr 97.6 F-98.8 F 86-134 20-25 84-118/56-88 98-98 GENERAL: The patient is awake, alert, and fully oriented, in no acute distress. HEAD: Normal with no signs of trauma. EYES: PERRL, extraocular movements intact, sclera anicteric, conjunctiva clear. No ptosis. ENT: Ears normal, nares patent, oropharynx clear without exudates, moist mucous membranes. NECK: Trachea midline, full range of motion, supple. LUNGS: Breath sounds equal, mild bibasilar crackles. coughing at bedside. no wheezing. no stridor. speaking full sentences without difficulty. HEART: Regular rate and rhythm, S1, S2 without murmur, rub or gallop. ABDOMEN: Soft, mild tenderness of suprapubic area, nondistended, normoactive bowel sounds, no guarding, no rebound, no hepatosplenomegaly, no masses. EXTREMITIES: 2+ pulses, warm, well-perfused, no edema. NEUROLOGICAL: Cranial nerves II through XII grossly intact. Normal speech, gait not observed. PSYCH: Normal mood, normal affect. SKIN: Warm, dry, normal turgor, no rashes or lesions noted Laboratory Results - last 24 hr 12/27/18 12/27/18 12/27/18 05:30 05:30 12:54 WBC 11.9 H 13.0 H RBC 3.57 L 3.63 Hgb 8.5 L 8.8 L Hct 26.9 L 27.5 L MCV 75.3 L 75.6 L MCH 23.9 L 24.2 L MCHC 31.7 L 32.0 RDW 19.7 H 19.3 H Plt Count 188 219 MPV 8.7 8.6 Absolute Neuts (auto) 8.5 H Neutrophils % 72.0 Lymphocytes % 14.8 D Monocytes % 9.5 Eosinophils % 3.3 D Basophils % 0.4 Nucleated RBC % 0 Sodium 140 Potassium 3.1 L Chloride 111 H Carbon Dioxide 23 Anion Gap 7 L BUN 9 Creatinine 0.5 L Creat Clearance w eGFR > 60 Random Glucose 101 Calcium 7.2 L Phosphorus 1.9 L Magnesium 1.6 L Total Bilirubin 0.4 AST 23 ALT 15 Alkaline Phosphatase 58 Total Protein 4.0 L Albumin 1.4 L TSH 3.01 Active Medications Generic Name Dose Route Start Last Admin Trade Name Freq PRN Reason Stop Dose Admin Apixaban 5 mg 12/27/18 10:57 12/27/18 21:16 Eliquis - PO 5 mg BID OBDULIO Administration Diltiazem HCl 10 mg 12/25/18 11:27 12/26/18 08:07 Cardizem Injection - IVPUSH 10 mg Q4H PRN Administration TACHYCARDIA Diltiazem HCl 60 mg 12/27/18 12:00 12/27/18 23:15 Cardizem - PO 60 mg Q6HPO OBDULIO Administration Fluticasone Propionate 2 spray 12/22/18 10:00 12/27/18 09:11 Flonase - NS 2 spray DAILY OBDULIO Administration Piperacillin Sod/Tazobactam 50 mls @ 100 mls/hr 12/23/18 21:00 12/28/18 02:14 Sod 2.25 gm/ Dextrose IVPB 100 mls/hr Q6H-IV OBDULIO Administration Morphine Sulfate 2 mg 12/25/18 13:22 12/27/18 21:17 Morphine Sulfate IVPUSH 2 mg Q4H PRN Administration PAIN LEVEL 7 - 10 Ondansetron HCl 4 mg 12/21/18 23:40 12/22/18 12:39 Zofran Injection IVPUSH 4 mg Q6H PRN Administration NAUSEA Pantoprazole Sodium 40 mg 12/21/18 19:15 12/27/18 09:10 Protonix Iv IVPUSH 40 mg DAILY OBDULIO Administration Propranolol HCl 1 mg 12/25/18 11:28 12/27/18 00:42 Inderal Injection - IVPUSH 1 mg Q1H PRN Administration TACHYCARDIA Propranolol HCl 60 mg 12/27/18 16:00 12/28/18 03:06 Inderal - PO 60 mg Q6H OBDULIO Administration Vital Signs Temperature 97.6 F 12/28/18 02:00 Pulse Rate 118 H 12/28/18 02:00 Respiratory Rate 22 H 12/28/18 02:00 Blood Pressure 112/68 12/28/18 02:00 O2 Sat by Pulse Oximetry (%) 98 12/27/18 20:19 ASSESSMENT/PLAN: 83 year old female with PMH atrial fibrillation on Eliquis, GERD, esophagitis, dementia, hallucinations, ataxia, HTN, benign neoplasm of cerebral meninges, who presented from assisted 12/21/18 for nausea and vomiting, found to be in atrial fibrillation with RVR, for to have bowel obstruction secondary to colonic mass, is now s/p right hemicolectomy (12/22/18), placed in ICU Post surgery for tachycardia and hypotension with aflutter and persistent RVR. Neuro -Dementia- needing constant reorientation -Mirtazapine, donepezil not yet resumed postop -Mx for septic shock post op with Zosyn, levophed, then placed on Amiodarone gtt GI -Bowel obstruction secondary to colonic mass -Right hemicolectomy (12/22/18) performed by Dr. Navarro -Post op day 6 -CA-125 elevated-45.3 -Pain control: morphine 2 mg IV q4H PRN # Hx of GI bleed previous admission #GERD hx - Hgb trending down, iron/transferrin/TIBC/ferritin ordered -Protonix IV 40 mg daily -Zofran 4 mg IV Q6 PRN -Per GI- For follow-up colonoscopy as outpatient Cardiology #Atrial flutter -HR intermittently 90s-120s -B/l pleural effusions persisting since 12/26 -IV lasix 40mg given once 12/26 #HTN-BP stable -Propranolol PO to 60 mg PO QID -Propranolol 1 mg IV push Q1 hour -Diltiazem 60 mg Q6H PO home dose added 12/27/18 -Eliquis 5 mg PO BID -ECHO-No hemodynamically signif (Mild aortic sclerosis), hyperdynamic LV, RV (dilated), RA mildly dilated, LA nl size, mild to mofd mitral annular calcification/ MR -pressors d/c 12/24/17 Hem/Onc -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 -Hem/Onc consulted -Palliative care consulted ID #Leukocytosis -WBC 17.4>>11.9>>13>>9.9 -New suprapubic tenderness today -Andre DCed -Afebrile -UA 12/25/18 negative for UTI; UC from 12/23/18 negative -On Zosyn for suspected septic shock s/p surgery started 12/23/18, Day 5 -B/L pleural effusions on CXR 12/26/18 & 12/27/18 concerning for high output failure, no infiltrates -CXR today 12/28/18 showed slight increase in pleural effusions, R>L Metabolic Electrolyte abnormalities -Phosph, Mg, K- continuing to replete #FEN/Lines -Andre catheter removed -No IV fluids -Left sided EJ #DIET -NPO until decision for PEG is made #DISPO -Tele Visit type - Emergency Visit Emergency Visit: Yes ED Registration Date: 12/22/18 Care time: The patient presented to the Emergency Department on the above date and was hospitalized for further evaluation of their emergent condition. - New Patient This patient is new to me today: No - Critical Care Critical Care patient: Yes Total Critical Care Time (in minutes): 35 Critical Care Statement: The care of this patient involved high complexity decision making to prevent further life threatening deterioration of the patient 's condition and/or to evaluate & treat vital organ system(s) failure or risk of failure. - Discharge Referral Referred to [facility] Med P.C.: No
[2018-12-28 06:14] LABS: BASO % 0.5 % (0-2.0); EOS % 3.5 % (0-4.5); HEMATOCRIT 25.4 % (32.4-45.2); HEMOGLOBIN 8.1 GM/dL (10.7-15.3); LYMPH % 20.9 % (8-40); MCH 24.2 pg (25.7-33.7); MEAN CELL VOLUME 75.5 fl (80-96); MEAN PLT VOLUME 8.8 fl (7.5-11.1); MONO % 12.3 % (3.8-10.2); NEUT % 62.8 % (42.8-82.8); PLATELET COUNT 234 K/MM3 (134-434); RBC 3.37 M/mm3 (3.60-5.2); RDW 18.9 % (11.6-15.6); WHITE BLOOD COUNT 9.9 K/mm3 (4.0-10.0)
[2018-12-28] MEDS: dilTIAZem HCL 60 MG TABLET (FP) PO SCH ×4 (06:33→17:53)
[2018-12-28 07:04] LABS: ALBUMIN 1.5 g/dl (3.4-5.0); ALK PHOS 58 U/L (45-117); ANION GAP 7 MMOL/L (8-16); BILIRUBIN,TOTAL 0.4 mg/dL (0.2-1); BLOOD UREA NITROGEN 7 mg/dL (7-18); CALCIUM 7.1 mg/dL (8.5-10.1); CHLORIDE 111 mmol/L (98-107); CO2 22 mmol/L (21-32); CREATININE 0.4 mg/dL (0.55-1.3); GLUCOSE,RANDOM 88 mg/dL (74-106); MAGNESIUM 1.6 mg/dL (1.8-2.4); PHOSPHOROUS 2.3 mg/dL (2.5-4.9); POTASSIUM 3.9 mmol/L (3.5-5.1); SGOT/AST 27 U/L (15-37); SGPT/ALT 16 U/L (13-61); SODIUM 140 mmol/L (136-145)
[2018-12-28] MEDS ORDERED: POTASSIUM PHOSPHATE 30 MM in DEXTROSE 5%-WATER - 250 ML IVPB ONE (07:51)
[2018-12-28] MEDS ORDERED: MAGNESIUM SULF 50% (8.12 MEQ/2 ML-1 GM VIAL) IVPB ONE ×3 (07:52→20:38)
[2018-12-28] MEDS: APIXABAN 5 MG TABLET PO SCH ×2 (09:29→21:29)
[2018-12-28] MEDS: FLUTICASONE PROP 0.05% 16 GM NASAL SPRAY NS SCH (09:30)
[2018-12-28] MEDS: PANTOPRAZOLE SODIUM 40 MG VIAL IVPUSH SCH (09:30)
[2018-12-28] MEDS ORDERED: SODIUM CHLORIDE 500 ML IV STA (09:55)
--- NOTE | 2018-12-28 10:42 | PN ---
Progress Note (short form) - Note Progress Note: s: no cp sob palps dizzy o: Vital Signs Period Temp Pulse Resp BP Sys/Germain Pulse Ox Last 24 Hr 97.6 F-98.8 F 64-132 17-25 84-118/45-78 96-98 nad, no jvd irreg s1s2 no mrg cta bl nl eff awake, alert pos dp pt no jaundice diaphoresis no le e/c/c abd nt nd pos bs Current Medications Generic Name Dose Route Start Last Admin Trade Name Freq PRN Reason Stop Dose Admin Apixaban 5 mg 12/27/18 10:57 12/28/18 09:29 Eliquis - PO 5 mg BID OBDULIO Administration Diltiazem HCl 10 mg 12/25/18 11:27 12/26/18 08:07 Cardizem Injection - IVPUSH 10 mg Q4H PRN Administration TACHYCARDIA Diltiazem HCl 60 mg 12/27/18 12:00 12/28/18 07:15 Cardizem - PO 60 mg Q6HPO OBDULIO Administration Fluticasone Propionate 2 spray 12/22/18 10:00 12/28/18 09:30 Flonase - NS 2 spray DAILY OBDULIO Administration Piperacillin Sod/Tazobactam 50 mls @ 100 mls/hr 12/23/18 21:00 12/28/18 09:30 Sod 2.25 gm/ Dextrose IVPB 100 mls/hr Q6H-IV OBDULIO Administration Potassium Phosphate 30 mm/ 260 mls @ 62.5 mls/hr 12/28/18 07:51 12/28/18 09: 29 Dextrose IVPB 12/28/18 12:00 62.5 mls/hr ONCE ONE Administration Morphine Sulfate 2 mg 12/25/18 13:22 12/27/18 21:17 Morphine Sulfate IVPUSH 2 mg Q4H PRN Administration PAIN LEVEL 7 - 10 Ondansetron HCl 4 mg 12/21/18 23:40 12/22/18 12:39 Zofran Injection IVPUSH 4 mg Q6H PRN Administration NAUSEA Pantoprazole Sodium 40 mg 12/21/18 19:15 12/28/18 09:30 Protonix Iv IVPUSH 40 mg DAILY OBDULIO Administration Propranolol HCl 1 mg 12/25/18 11:28 12/27/18 00:42 Inderal Injection - IVPUSH 1 mg Q1H PRN Administration TACHYCARDIA Propranolol HCl 60 mg 12/27/18 16:00 12/28/18 09:30 Inderal - PO 60 mg Q6H OBDULIO Administration CBC, BMP 12/28/18 05:30 12/28/18 05:30 ecg: aflutter with 2:1 avb, vr 127, no ischemic changes echo 07/2015: nl lv/rv, no sig valve path tele: aflutter, vr 100s-130s echo 07/2015: nl lv/rv, no sig valve path cxr: clear lungs a/p: 83 f hx dementia, afib/flutter, gerd, htn, tia, sent from [place] for coffee ground emesis. aflutter: - was on diltiazem 60 mg QID and propranolol 120 mg BID at home-->npo postop bowel surgery with tachycardia and hypotensive on levophed-->amio gtt started with persistent tachycardia. hemodynamics improved-->amio d/c'd, prn iv diltiazem ordered - 12/25: H?R 140s, no response to IV diltiazem pushes, SBP dropped to 80s. d/w'd icu team: will start non-chronotropic vasoconstrictor pressor, then initiate low dose PO and IV propranolol trial for HR control. - eliquis held briefly during 12/05 admit with GIB, resumed on discharge with plan for outpt GI scopes. H/H were stable when arrived this time with SBO, eliquis now on hold for surgery - 12/26: HR remains 130s, will increase propranolol to 60 mg QID (home dose is propranolol long acting 120 mg BID). If BP tolerates would restart PO diltiazem as well, at home was on 60 mg QID - 12/27: eliquis resumed, HR 130s. change eliquis to 5 mg BID dosing (age >80 however she is >60 kg and Cr <1.5, does not meet criteria for low dose and was on full dose prior). BP improved today, will restart diltiazem 60 mg Q6H 12/28: HR improved but still fast at times, cont same dilt/inderal for now as bp on low side and monitor on tele. pleural effusions - noted on CXR, rales on exam - IV lasix 3/12, ivfs stopped - vol seems stable today htn: -bb/ccb resumed GIB: -recent admit for GIB, hgb stable here -plans per GI were outpt scopes sbo: -s/p surgery
--- NOTE | 2018-12-28 12:29 | PN ---
Teaching Attending Note Name of Resident: Kierra Brown ATTENDING PHYSICIAN STATEMENT I saw and evaluated the patient. I reviewed the resident's note and discussed the case with the resident. I agree with the resident's findings and plan as documented. SUBJECTIVE: Patient seen and examined in the ICU. Awake and responsive. Mildly tachypenic at rest but reports subjectively feeling better. Denies CP or SOB. Still in Rapid AFib. Intake & Output 12/25/18 12/26/18 12/27/18 12/28/18 23:59 23:59 23:59 23:59 Intake Total 1666 176 6432 400 Output Total 500 1600 1200 200 Balance 1200 -1250 -10 200 Weight 160 lb 0.889 oz 146 lb 3 oz 149 lb 14.4 oz Last Vital Signs Temp Pulse Resp BP Pulse Ox 98 F 76 20 71/45 L 96 12/28/18 10:15 12/28/18 12:12 12/28/18 12:12 12/28/18 12:12 12/28/18 09:00 Active Medications Apixaban (Eliquis -) 5 mg PO BID [facility] Last Admin: 12/28/18 09:29 Dose: 5 mg Diltiazem HCl (Cardizem Injection -) 10 mg IVPUSH Q4H PRN PRN Reason: TACHYCARDIA Last Admin: 12/26/18 08:07 Dose: 10 mg Diltiazem HCl (Cardizem -) 60 mg PO Q6HPO [facility] Last Admin: 12/28/18 11:36 Dose: 60 mg Fluticasone Propionate (Flonase -) 2 spray NS DAILY [facility] Last Admin: 12/28/18 09:30 Dose: 2 spray Piperacillin Sod/Tazobactam (Sod 2.25 gm/ Dextrose) 50 mls @ 100 mls/hr IVPB Q6H-IV [facility]BDULIO Last Admin: 12/28/18 09:30 Dose: 100 mls/hr Morphine Sulfate (Morphine Sulfate) 2 mg IVPUSH Q4H PRN PRN Reason: PAIN LEVEL 7 - 10 Last Admin: 12/27/18 21:17 Dose: 2 mg Ondansetron HCl (Zofran Injection) 4 mg IVPUSH Q6H PRN PRN Reason: NAUSEA Last Admin: 12/22/18 12:39 Dose: 4 mg Pantoprazole Sodium (Protonix Iv) 40 mg IVPUSH DAILY [facility] Last Admin: 12/28/18 09:30 Dose: 40 mg Propranolol HCl (Inderal Injection -) 1 mg IVPUSH Q1H PRN PRN Reason: TACHYCARDIA Last Admin: 12/27/18 00:42 Dose: 1 mg Propranolol HCl (Inderal -) 60 mg PO Q6H [facility] Last Admin: 12/28/18 09:30 Dose: 60 mg Gen; awake, mildly tachypneic at rest HEENT: supple, (-) Icterus PULM: Bibasilar rales and rhonchi CV: tachycardia, AFib ABD: midline incision CDI, hypoactive but present BS EXT: no edema NEURO: non focal, mildly confused Laboratory Results - last 24 hr 12/27/18 12/28/18 12/28/18 12:54 05:30 05:30 WBC 13.0 H 9.9 RBC 3.63 3.37 L Hgb 8.8 L 8.1 L Hct 27.5 L 25.4 L MCV 75.6 L 75.5 L MCH 24.2 L 24.2 L MCHC 32.0 32.0 RDW 19.3 H 18.9 H Plt Count 219 234 MPV 8.6 8.8 Absolute Neuts (auto) 6.2 Neutrophils % 62.8 Lymphocytes % 20.9 D Monocytes % 12.3 H Eosinophils % 3.5 Basophils % 0.5 Nucleated RBC % 0 Sodium 140 Potassium 3.9 Chloride 111 H Carbon Dioxide 22 Anion Gap 7 L BUN 7 Creatinine 0.4 L Creat Clearance w eGFR > 60 Random Glucose 88 Calcium 7.1 L Phosphorus 2.3 L Magnesium 1.6 L Ferritin 114.2 Total Bilirubin 0.4 AST 27 ALT 16 Alkaline Phosphatase 58 Total Protein 4.0 L Albumin 1.5 L IMP: Sepsis Relative hypotension Rapid AFlutter LBO S/P Exlap Delerium PLAN: ABX per ID Rate control per Cardiology Monitor off IVF Lasix Strict I & O VTE prophylaxis Aspiration precautions Cardiac Telemetry monitoring Dr Monroe
--- NOTE | 2018-12-28 13:04 | PN ---
Progress Note (short form) - Note Progress Note: Renal follow up Pt seen and examined in the ICU sleeping but arouseable no acute complaints no overnight events making urine Vital Signs Temperature 98 F 12/28/18 10:15 Pulse Rate 76 12/28/18 12:12 Respiratory Rate 20 12/28/18 12:12 Blood Pressure 71/45 L 12/28/18 12:12 O2 Sat by Pulse Oximetry (%) 96 12/28/18 09:00 Intake & Output 12/25/18 12/26/18 12/27/18 12/28/18 23:59 23:59 23:59 23:59 Intake Total 4984 406 0681 400 Output Total 500 1600 1200 200 Balance 1200 -1250 -10 200 Weight 72.6 kg 66.31 kg 67.993 kg NAD RRR, No M/R CTA, no rales or wheeze soft. ND, midline incision noted no bladder distension No LE edema CBC, BMP 12/28/18 05:30 12/28/18 05:30 Current Medications Apixaban (Eliquis -) 5 mg PO BID [facility]BD[facility]IO Last Admin: 12/28/18 09:29 Dose: 5 mg Diltiazem HCl (Cardizem Injection -) 10 mg IVPUSH Q4H PRN PRN Reason: TACHYCARDIA Last Admin: 12/26/18 08:07 Dose: 10 mg Diltiazem HCl (Cardizem -) 60 mg PO Q6HPO OBDULIO Last Admin: 12/28/18 11:36 Dose: 60 mg Fluticasone Propionate (Flonase -) 2 spray NS DAILY OBDULIO Last Admin: 12/28/18 09:30 Dose: 2 spray Piperacillin Sod/Tazobactam (Sod 2.25 gm/ Dextrose) 50 mls @ 100 mls/hr IVPB Q6H-IV OBDULIO Last Admin: 12/28/18 09:30 Dose: 100 mls/hr Magnesium Sulfate (Magnesium Sulfate) 2 gm IVPB ONCE ONE Stop: 12/28/18 13:03 Morphine Sulfate (Morphine Sulfate) 2 mg IVPUSH Q4H PRN PRN Reason: PAIN LEVEL 7 - 10 Last Admin: 12/27/18 21:17 Dose: 2 mg Ondansetron HCl (Zofran Injection) 4 mg IVPUSH Q6H PRN PRN Reason: NAUSEA Last Admin: 12/22/18 12:39 Dose: 4 mg Pantoprazole Sodium (Protonix Iv) 40 mg IVPUSH DAILY OBDULIO Last Admin: 12/28/18 09:30 Dose: 40 mg Potassium Phos/Sodium Phos (Phos-Nak Packet -) 1 packet PO TID OBDULIO Propranolol HCl (Inderal Injection -) 1 mg IVPUSH Q1H PRN PRN Reason: TACHYCARDIA Last Admin: 12/27/18 00:42 Dose: 1 mg Propranolol HCl (Inderal -) 60 mg PO Q6H OBDULIO Last Admin: 12/28/18 09:30 Dose: 60 mg 83 year old woman with hx of GERD, Dementia, Hypertension, Benigin neoplasm of cerebral maninges who presented with N/V and found to have SBO s/p Ex-lap now with oliguria. #Oliguria with preserved renal function #SBO s/p Ex-lap #Hypotenson/shock #Anemia #Hx of Hypertension #Hypokalemia #Hypophosphatemia Renal function stable and pt is non-oliguric Give total of 4g Mag sulfate today start oral neutraphos and trend serum phos daily continue rate control as per cardiology keep MAP >65 Thank you Tono Collins DO
[2018-12-28] MEDS: NAPH,MB-DB/K PH,MBDB POWDER PACKET PO SCH ×2 (14:54→21:30)
--- NOTE | 2018-12-28 15:54 | PATH ---
Surgical Pathology Report Patient Name: TED ALVAREZ [facility] Rec. #: [id number] /Age/Gender: 1935 (Age: 83) / F Account: [id number] Location: ICU FIELD CONTACT PERSON Taken: 12/22/2018 Received: 12/25/2018 Reported: 12/28/2018 Physicians: Negin Chandra F.N.P. Specimen(s) Received TERMINAL ILEUM, CECUM, APPENDIX, RIGHT COLON, PORTION OF TRANSVERSE COLON Clinical History Bowel obstruction, obstructing right colon cancer Final Diagnosis TERMINAL ILEUM, CECUM, APPENDIX, RIGHT COLON, PORTION OF TRANSVERSE COLON; RIGHT HEMICOLECTOMY: INVASIVE ADENOCARCINOMA , MODERATELY DIFFERENTIATED. TUMOR MEASURES 4.5 X 3.0 CM (GROSS MEASUREMENT). TUMOR LOCATED AT RIGHT COLON. TUMOR INVADES INTO THE SEROSA (T4a). LYMPHOVASCULAR INVASION IDENTIFIED. LARGE VENOUS INVASION IDENTIFIED. PERINEURAL INVASION IDENTIFIED. APPENDIX WITH SESSILE SERRATED POLYP. SURGICAL MARGINS ARE NEGATIVE. TWO OF NINETEEN LYMPH NODES WITH METASTATIC CARCINOMA (2/19); LARGEST TUMOR DEPOSIT MEASURES 2.1 CM, WITHOUT EXTRANODAL EXTENSION IDENTIFIED. PATHOLOGIC STAGE (pTNM, AJCC 8TH EDITION): pT4a pN1b. SEE INVASIVE SUMMARY BELOW. Comments Colorectal Carcinoma :Surgical Pathology Cancer Case Summary (Based on AJCC TNM 8 th edition) Procedure _X__ Right hemicolectomy Tumor Site _X__ Right (ascending) colon Tumor Size Greatest dimension (centimeters): 4.5 X 3.0 cm Macroscopic Tumor Perforation _X__ Not identified Histologic Type _X__ Adenocarcinoma Histologic Grade _X__ G2: Moderately differentiated Tumor Extension _X__ Tumor invades the visceral peritoneum (including tumor continuous with serosal surface through area of inflammation) Margins _X__ All margins are uninvolved by invasive carcinoma, high-grade dysplasia, intramucosal adenocarcinoma, and adenoma Margins examined: distal, proximal, mesenteric Treatment Effect _X__ No known presurgical therapy Lymphovascular Invasion _X__ Present _X__ Small vessel lymphovascular invasion _X__ Large vessel (venous) invasion) _X__ Intramural _X__ Extramural Perineural Invasion _X__ Present Tumor Deposits _X__ Not identified Regional Lymph Nodes Lymph Node Examination Number of Lymph Nodes Involved: 2 Number of Lymph Nodes Examined: 19 Pathologic Stage Classification (pTNM, AJCC 8th Edition) Primary Tumor (pT) _X__ pT4a: Tumor invades through the visceral peritoneum (including gross perforation of the bowel through tumor and continuous invasion of tumor through areas of inflammation to the surface of the visceral peritoneum) Regional Lymph Nodes (pN) _X__ pN1b: Two or three regional lymph nodes are positive Immunohistochemical stains for MisMatch Repair Protein Analysis performed at [facility] in [place], [place] ([id number]) and interpreted at [facility] show the following: RESULTS: HMLH-1 INTACT NUCLEAR EXPRESSION HMSH-2 INTACT NUCLEAR EXPRESSION HMSH-6 INTACT NUCLEAR EXPRESSION PMS2 INTACT NUCLEAR EXPRESSION INTERPRETATION: No loss of nuclear expression of MMR proteins: low probability of microsatellite instability-high (MSI-H) Comment: Immunohistochemical stains performed at [facility], [place], [place] ([id number]) and interpreted at [facility] for ABY and CD10 were utilized to evaluate this case. Findings discussed with Dr. Navarro. Positive and negative controls (internal if applicable) show appropriate results. Electronically Signed Ruth Paredes M.D. Gross Description Received in formalin labeled "terminal ileum, cecum, appendix, right colon, portion of transverse colon," is a 12 cm in length dilated portion of terminal ileum with an attached 33 cm in length portion of cecum and right colon. The cecum is markedly dilated. The specimen displays 2 stapled mucosal margins and abundant attached pericolonic adipose tissue. There is a 6.5 cm in length unremarkable vermiform appendix attached to the cecum. The serosa is chaney szymanski and smooth. Sectioning reveals a 4.5 x 3.0 cm chaney, polypoid, circumferential mass in the right colon. The mass is 12 cm from the distal mucosal margin. The mass extends to the serosa and pericolonic adipose tissue. The mass is 3.5 cm from the mesenteric margin of resection. The remaining mucosa is chaney with flattened folds in the cecum and terminal ileum. The distal right colon displays normal folds. Sectioning of the pericolonic adipose tissue reveals multiple chaney lymph nodes, measuring up to 2.0 cm in greatest dimension. [employer] sections are submitted in 29 cassettes as follows: 1-terminal ileum margin of resection; 2-distal mucosal margin of resection; 3-shave of mesenteric margin of resection; 4-appendix; 5-8-mass; 9-uninvolved terminal ileum; 10-uninvolved cecum; 11-uninvolved distal right colon; 12-16-one serially sectioned lymph node; 17-19-one trisected lymph node each; 20-27-one bisected lymph node each; 28-multiple possible lymph nodes; 29-multiple possible lymph nodes. 12/26/2018 saudi12/26/2018
--- NOTE | 2018-12-28 16:09 | PN ---
Progress Note, Physician History of Present Illness: stable no new issues comfortable - Current Medication List Current Medications: Active Medications Apixaban (Eliquis -) 5 mg PO BID [facility] Last Admin: 12/28/18 09:29 Dose: 5 mg Diltiazem HCl (Cardizem Injection -) 10 mg IVPUSH Q4H PRN PRN Reason: TACHYCARDIA Last Admin: 12/26/18 08:07 Dose: 10 mg Diltiazem HCl (Cardizem -) 60 mg PO Q6HPO [facility] Last Admin: 12/28/18 11:36 Dose: 60 mg Fluticasone Propionate (Flonase -) 2 spray NS DAILY [facility] Last Admin: 12/28/18 09:30 Dose: 2 spray Piperacillin Sod/Tazobactam (Sod 2.25 gm/ Dextrose) 50 mls @ 100 mls/hr IVPB Q6H-IV [facility] Last Admin: 12/28/18 14:54 Dose: 100 mls/hr Ondansetron HCl (Zofran Injection) 4 mg IVPUSH Q6H PRN PRN Reason: NAUSEA Last Admin: 12/22/18 12:39 Dose: 4 mg Pantoprazole Sodium (Protonix Iv) 40 mg IVPUSH DAILY [facility] Last Admin: 12/28/18 09:30 Dose: 40 mg Potassium Phos/Sodium Phos (Phos-Nak Packet -) 1 packet PO TID [facility] Last Admin: 12/28/18 14:54 Dose: 1 packet Propranolol HCl (Inderal Injection -) 1 mg IVPUSH Q1H PRN PRN Reason: TACHYCARDIA Last Admin: 12/27/18 00:42 Dose: 1 mg Propranolol HCl (Inderal -) 60 mg PO Q6H [facility] Last Admin: 12/28/18 09:30 Dose: 60 mg - Objective Vital Signs: Vital Signs Temperature 98.1 F 12/28/18 13:49 Pulse Rate 115 H 12/28/18 14:32 Respiratory Rate 24 H 12/28/18 14:32 Blood Pressure 109/61 12/28/18 14:32 O2 Sat by Pulse Oximetry (%) 96 12/28/18 09:00 Constitutional: Yes: No Distress, Calm Cardiovascular: Yes: Tachycardia, S1, S2 Respiratory: Yes: Regular, CTA Bilaterally Gastrointestinal: Yes: Normal Bowel Sounds, Soft Musculoskeletal: Yes: WNL Extremities: Yes: WNL Wound/Incision: Yes: Clean/Dry Neurological: Yes: Alert, Oriented Psychiatric: Yes: Alert, Oriented Labs: CBC, BMP 12/28/18 05:30 12/28/18 05:30 INR, PTT INR 1.13 (0.83-1.09) H 12/21/18 09:35 Assessment/Plan - Problems (1) Colon obstruction Code(s): K56.609 - UNSP INTESTNL OBST, UNSP TO PARTIAL VERSUS COMPLETE OBST (2) Atrial fibrillation with RVR Code(s): I48.91 - UNSPECIFIED ATRIAL FIBRILLATION (3) Dementia Code(s): F03.90 - UNSPECIFIED DEMENTIA WITHOUT BEHAVIORAL DISTURBANCE (4) Esophagitis Code(s): K20.9 - ESOPHAGITIS, UNSPECIFIED (5) GERD (gastroesophageal reflux disease) Code(s): K21.9 - GASTRO-ESOPHAGEAL REFLUX DISEASE WITHOUT ESOPHAGITIS (6) Hypertension Code(s): I10 - ESSENTIAL (PRIMARY) HYPERTENSION Qualifiers: Hypertension type: essential hypertension Qualified Code(s): I10 - Essential (primary) hypertension leukocytosis plan continue abx if stable will change to oral abx monitor heart rate rest as per the team nutrition out of bed
--- NOTE | 2018-12-28 16:41 | PN ---
Progress Note, Physician History of Present Illness: 24 HR Events -pt stable for transfer to [facility] bed -HR better controlled - Current Medication List Current Medications: Active Medications Apixaban (Eliquis -) 5 mg PO BID [facility] Last Admin: 12/28/18 09:29 Dose: 5 mg Diltiazem HCl (Cardizem Injection -) 10 mg IVPUSH Q4H PRN PRN Reason: TACHYCARDIA Last Admin: 12/26/18 08:07 Dose: 10 mg Diltiazem HCl (Cardizem -) 60 mg PO Q6HPO [facility] Last Admin: 12/28/18 11:36 Dose: 60 mg Fluticasone Propionate (Flonase -) 2 spray NS DAILY [facility] Last Admin: 12/28/18 09:30 Dose: 2 spray Piperacillin Sod/Tazobactam (Sod 2.25 gm/ Dextrose) 50 mls @ 100 mls/hr IVPB Q6H-IV [facility] Last Admin: 12/28/18 14:54 Dose: 100 mls/hr Ondansetron HCl (Zofran Injection) 4 mg IVPUSH Q6H PRN PRN Reason: NAUSEA Last Admin: 12/22/18 12:39 Dose: 4 mg Pantoprazole Sodium (Protonix Iv) 40 mg IVPUSH DAILY [facility] Last Admin: 12/28/18 09:30 Dose: 40 mg Potassium Phos/Sodium Phos (Phos-Nak Packet -) 1 packet PO TID [facility] Last Admin: 12/28/18 14:54 Dose: 1 packet Propranolol HCl (Inderal Injection -) 1 mg IVPUSH Q1H PRN PRN Reason: TACHYCARDIA Last Admin: 12/27/18 00:42 Dose: 1 mg Propranolol HCl (Inderal -) 60 mg PO Q6H [facility] Last Admin: 12/28/18 09:30 Dose: 60 mg - Objective Vital Signs: Vital Signs Temperature 98.1 F 12/28/18 13:49 Pulse Rate 115 H 12/28/18 14:32 Respiratory Rate 24 H 12/28/18 14:32 Blood Pressure 109/61 12/28/18 14:32 O2 Sat by Pulse Oximetry (%) 96 12/28/18 09:00 Constitutional: Yes: Well Nourished, No Distress, Calm Eyes: Yes: Conjunctiva Clear, PERRL HENT: Yes: Atraumatic, Normocephalic, Nasal Congestion Neck: Yes: Supple Cardiovascular: Yes: Pulse Irregular Respiratory: Yes: Regular, On Nasal O2, Other (coarse BS bilaterally) Gastrointestinal: Yes: Normal Bowel Sounds, Soft ...Rectal Exam: Yes: Deferred Musculoskeletal: Yes: WNL Extremities: Yes: WNL Edema: No Peripheral Pulses WNL: Yes Peripheral Pulses: Left Radial: 2+, Right Radial: 2+ Integumentary: Yes: Venous Stasis Changes Neurological: Yes: Alert ...Motor Strength: WNL Psychiatric: Yes: Alert Labs: CBC, BMP 12/28/18 05:30 12/28/18 05:30 INR, PTT INR 1.13 (0.83-1.09) H 12/21/18 09:35 - ....Imaging Chest X-ray: Report Reviewed (CXR 12/28/2018 Impression: bilateral pulmonary pleural changes have increased slightly with the right more affected than the left. Read by Dr. Nuno Lopez) Problem List - Problems (1) Dementia Assessment/Plan: frequent reorientation Code(s): F03.90 - UNSPECIFIED DEMENTIA WITHOUT BEHAVIORAL DISTURBANCE (2) Flutter-fibrillation Assessment/Plan: Propranolol 60 mg PO QID Cardizem 60mg QID Eliquis 5 mg PO BID Code(s): I49.8 - OTHER SPECIFIED CARDIAC ARRHYTHMIAS (3) GERD (gastroesophageal reflux disease) Assessment/Plan: Protonix daily Code(s): K21.9 - GASTRO-ESOPHAGEAL REFLUX DISEASE WITHOUT ESOPHAGITIS (4) Small bowel obstruction Assessment/Plan: -Zofran 4 mg IV Q6 PRN -clear liquids, aspiration precautions. -d/c IVF Code(s): K56.609 - UNSP INTESTNL OBST, UNSP TO PARTIAL VERSUS COMPLETE OBST Impression/Plan Impression/Plan: DISPO -transfer to tele floor -DNR/DNI Visit type - Emergency Visit Emergency Visit: Yes ED Registration Date: 12/22/18 Care time: The patient presented to the Emergency Department on the above date and was hospitalized for further evaluation of their emergent condition. - New Patient This patient is new to me today: No - Critical Care Critical Care patient: Yes Total Critical Care Time (in minutes): 30 Critical Care Statement: The care of this patient involved high complexity decision making to prevent further life threatening deterioration of the patient 's condition and/or to evaluate & treat vital organ system(s) failure or risk of failure. - Discharge Referral Referred to [facility] No
[2018-12-28] MEDS ORDERED: dilTIAZem HCL 50 MG/10 ML - 10 ML VIAL IVPUSH PRN (20:38)
[2018-12-28] MEDS ORDERED: ONDANSETRON 4 MG/2 ML VIAL IVPUSH PRN (20:38)
[2018-12-28] MEDS ORDERED: HALOPERIDOL LACTATE 5 MG/ML IM ONE (20:38)
--- NOTE | 2018-12-28 23:29 | CONSULT ---
Consult Consult Specialty:: oncology Reason for Consultation:: Newly diagnosed colon cancer - History of Present Illness Chief Complaint: 83 y/o patient with ultiple comorbidities presenting with tachycardia - History Source History Provided By: Patient, Medical Record, Transfer Record - Past Medical History HISTOLOGY TECH: Yes: Dementia (mild), Other (?meningioma) Cardio/Vascular: Yes: HTN Gastrointestinal: Yes: GERD ...: No - Alcohol/Substance Use Hx Alcohol Use: No History of Substance Use: reports: None - Smoking History Smoking history: Former smoker Have you smoked in the past 12 months: No - Social History Usual Living Arrangement: Shelter ADL: Support Services History of Recent Travel: No Home Medications - Allergies Allergies/Adverse Reactions: Allergies Allergy/AdvReac Type Severity Reaction Status Date / Time No Known Allergies Allergy Verified 12/21/18 08:50 - Home Medications Home Medications: Ambulatory Orders Donepezil HCl [Aricept] 10 mg PO HS 07/23/15 Apixaban [Eliquis -] 5 mg PO BID #60 tablet 07/30/15 Fluticasone Prop 0.05% Nasal [Flonase -] 2 spray NS DAILY #1 bottle 07/30/15 Ferrous Gluconate [Iron] 240 mg PO DAILY 12/13/18 Loratadine [Claritin -] 10 mg PO DAILY 12/13/18 Mirtazapine [Remeron -] 15 mg PO HS 12/13/18 Propranolol HCl [Inderal LA] 120 mg PO BID 12/13/18 Sennosides/Docusate Sodium [Senokot-S Tablet] 2 each PO HS 12/13/18 Diltiazem [Cardizem -] 60 mg PO Q6HPO tablet 12/20/18 propRANOLol HCL [Inderal LA -] 120 mg PO BID capsule.er 12/20/18 Family Disease History - Family Disease History Other Family History: No family history of colon cancer Physical Exam Vital Signs: Vital Signs Temperature 98 F 12/28/18 18:00 Pulse Rate 83 12/28/18 20:41 Respiratory Rate 22 H 12/28/18 20:41 Blood Pressure 93/62 12/28/18 20:41 O2 Sat by Pulse Oximetry (%) 96 12/28/18 20:43 Labs: CBC, BMP 12/28/18 05:30 12/28/18 05:30 Assessment/Plan 83 y/o patient with dementia, afib( on eliquis 5mg bid), large bowel obstrucstion s/p Exploratory laparotomy, right toribio colectomy with primary ileotransverse stapled anastomosis for obstructing ascending colon mass, obvious transition point, large palpable mesenteric lymph nodes taken en-bloc in the root of the mestentary. Pathology c/w [id number] moderately differentiated adenocarcinoma, + LVI/+ PNI/+ 2 /19 nodes Microsatellite stable Will need to assess, performance and functional status once recovers post operatively and assess if she will be a candidate for adjuvant therapy .
[2018-12-29] MEDS ORDERED: DEXTROSE 5%-WATER - 50 ML IVPB ONE ×2 (01:35→10:07)
[2018-12-29] MEDS ORDERED: PIPERACILLIN/TAZOBACTAM 2.25 GM VIAL IVPB ONE ×2 (01:35→10:07)
[2018-12-29] MEDS: dilTIAZem HCL 60 MG TABLET (FP) PO SCH ×4 (01:36→17:00)
[2018-12-29] MEDS: PIPERACILLIN/TAZOB 2.25 GM 2.25 GM in DEXTROSE 5%-WATER - 50 ML IVPB SCH ×3 (02:21→15:36)
[2018-12-29 04:14] LABS: SERUM IRON SATURATION 7 % (15-55); TOTAL IRON BINDING CAPACITY 179 ug/dL (250-450); UIBC 166 ug/dL (118-369)
[2018-12-29] MEDS: NAPH,MB-DB/K PH,MBDB POWDER PACKET PO SCH ×3 (06:00→21:52)
[2018-12-29 06:19] LABS: BASO % 0.6 % (0-2.0); EOS % 3.6 % (0-4.5); HEMATOCRIT 29.7 % (32.4-45.2); HEMOGLOBIN 9.4 GM/dL (10.7-15.3); MCH 24.1 pg (25.7-33.7); MCHC 31.6 g/dl (32.0-36.0); MEAN CELL VOLUME 76.3 fl (80-96); MEAN PLT VOLUME 8.4 fl (7.5-11.1); MONO % 14.1 % (3.8-10.2); NEUT % 61.7 % (42.8-82.8); PLATELET COUNT 299 K/MM3 (134-434); RDW 19.2 % (11.6-15.6)
[2018-12-29 06:56] LABS: ALBUMIN 1.6 g/dl (3.4-5.0); ALK PHOS 56 U/L (45-117); ANION GAP 5 MMOL/L (8-16); BILIRUBIN,TOTAL 0.4 mg/dL (0.2-1); BLOOD UREA NITROGEN 6 mg/dL (7-18); CALCIUM 7.3 mg/dL (8.5-10.1); CHLORIDE 107 mmol/L (98-107); CO2 25 mmol/L (21-32); CREATININE 0.4 mg/dL (0.55-1.3); GLUCOSE,RANDOM 95 mg/dL (74-106); MAGNESIUM 2.3 mg/dL (1.8-2.4); N-TERMINAL BNP 3020.1 pg/ml (5-450); PHOSPHOROUS 2.9 mg/dL (2.5-4.9); POTASSIUM 4.2 mmol/L (3.5-5.1); SGOT/AST 22 U/L (15-37); SGPT/ALT 18 U/L (13-61); SODIUM 137 mmol/L (136-145); TOT PROT 4.5 g/dl (6.4-8.2)
[2018-12-29] MEDS: APIXABAN 5 MG TABLET PO SCH ×2 (10:11→21:52)
[2018-12-29] MEDS: PANTOPRAZOLE SODIUM 40 MG VIAL IVPUSH SCH (10:11)
[2018-12-29] MEDS: FLUTICASONE PROP 0.05% 16 GM NASAL SPRAY NS SCH (10:14)
--- NOTE | 2018-12-29 10:20 | PN ---
Progress Note (short form) - Note Progress Note: s: no cp sob palps dizzy o: Vital Signs Period Temp Pulse Resp BP Sys/Germain Pulse Ox Last 24 Hr 97.2 F-98.2 F 41-132 20-25 71-121/45-73 96-96 nad, no jvd irreg s1s2 no mrg cta bl nl eff awake, alert pos dp pt no jaundice diaphoresis no le e/c/c abd nt nd pos bs Current Medications Generic Name Dose Route Start Last Admin Trade Name Freq PRN Reason Stop Dose Admin Apixaban 5 mg 12/28/18 22:00 12/29/18 10:11 Eliquis - PO 5 mg BID OBDULIO Administration Diltiazem HCl 60 mg 12/29/18 00:00 12/29/18 06:00 Cardizem - PO 60 mg Q6HPO OBDULIO Administration Diltiazem HCl 10 mg 12/28/18 20:38 Cardizem Injection - IVPUSH Q4H PRN TACHYCARDIA Fluticasone Propionate 2 spray 12/29/18 10:00 12/29/18 10:14 Flonase - NS 2 spray DAILY OBUDLIO Administration Piperacillin Sod/Tazobactam 50 mls @ 100 mls/hr 12/28/18 21:00 12/29/18 10:11 Sod 2.25 gm/ Dextrose IVPB 100 mls/hr Q6H-IV OBDULIO Administration Ondansetron HCl 4 mg 12/28/18 20:38 Zofran Injection IVPUSH Q6H PRN NAUSEA Pantoprazole Sodium 40 mg 12/29/18 10:00 12/29/18 10:11 Protonix Iv IVPUSH 40 mg DAILY OBDULIO Administration Potassium Phos/Sodium Phos 1 packet 12/28/18 14:00 12/29/18 06:00 Phos-Nak Packet - PO 1 packet TID OBDULIO Administration Propranolol HCl 60 mg 12/28/18 22:00 12/29/18 10:12 Inderal - PO 60 mg Q6H OBDULIO Administration Propranolol HCl 1 mg 12/28/18 20:38 Inderal Injection - IVPUSH Q1H PRN TACHYCARDIA CBC, BMP 12/29/18 05:30 12/29/18 05:30 ecg: aflutter with 2:1 avb, vr 127, no ischemic changes echo 07/2015: nl lv/rv, no sig valve path tele: aflutter, rate ok echo 07/2015: nl lv/rv, no sig valve path cxr: clear lungs a/p: 83 f hx dementia, afib/flutter, gerd, htn, tia, sent from [place] for coffee ground emesis. aflutter: - was on diltiazem 60 mg QID and propranolol 120 mg BID at home-->npo postop bowel surgery with tachycardia and hypotensive on levophed-->amio gtt started with persistent tachycardia. hemodynamics improved-->amio d/c'd, prn iv diltiazem ordered - 12/25: H?R 140s, no response to IV diltiazem pushes, SBP dropped to 80s. d/w'd icu team: will start non-chronotropic vasoconstrictor pressor, then initiate low dose PO and IV propranolol trial for HR control. - eliquis held briefly during 12/05 admit with GIB, resumed on discharge with plan for outpt GI scopes. H/H were stable when arrived this time with SBO, eliquis now on hold for surgery - 12/26: HR remains 130s, will increase propranolol to 60 mg QID (home dose is propranolol long acting 120 mg BID). If BP tolerates would restart PO diltiazem as well, at home was on 60 mg QID - 12/27: eliquis resumed, HR 130s. change eliquis to 5 mg BID dosing (age >80 however she is >60 kg and Cr <1.5, does not meet criteria for low dose and was on full dose prior). BP improved today, will restart diltiazem 60 mg Q6H 12/28: HR improved but still fast at times, cont same dilt/inderal for now as bp on low side and monitor on tele. -12/29: rate better today, continue same bb/ccb pleural effusions - noted on CXR, rales on exam - IV lasix 12/26, ivfs stopped - vol seems stable today htn: -bb/ccb resumed GIB: -recent admit for GIB, hgb stable here -plans per GI were outpt scopes sbo: -s/p surgery, found to have colon ca, onc following
--- NOTE | 2018-12-29 12:01 | PN ---
Progress Note (short form) - Note Progress Note: Renal follow up Pt seen and examined at the bedside no overnight events Vital Signs Temperature 97.5 F L 12/29/18 10:00 Pulse Rate 45 L 12/29/18 10:00 Respiratory Rate 21 H 12/29/18 10:00 Blood Pressure 112/63 12/29/18 10:00 O2 Sat by Pulse Oximetry (%) 96 12/28/18 20:43 Intake & Output 12/26/18 12/27/18 12/28/18 12/29/18 23:59 23:59 23:59 23:59 Intake Total 350 1190 1490 Output Total 1600 1200 400 Balance -1250 -10 1090 Weight 72.6 kg 66.31 kg 67.993 kg NAD no edema CBC, BMP 12/29/18 05:30 12/29/18 05:30 Current Medications Apixaban (Eliquis -) 5 mg PO BID [facility] Last Admin: 12/29/18 10:11 Dose: 5 mg Diltiazem HCl (Cardizem -) 60 mg PO Q6HPO [facility] Last Admin: 12/29/18 06:00 Dose: 60 mg Diltiazem HCl (Cardizem Injection -) 10 mg IVPUSH Q4H PRN PRN Reason: TACHYCARDIA Fluticasone Propionate (Flonase -) 2 spray NS DAILY [facility] Last Admin: 12/29/18 10:14 Dose: 2 spray Piperacillin Sod/Tazobactam (Sod 2.25 gm/ Dextrose) 50 mls @ 100 mls/hr IVPB Q6H-IV OBDULIO Last Admin: 12/29/18 10:11 Dose: 100 mls/hr Ondansetron HCl (Zofran Injection) 4 mg IVPUSH Q6H PRN PRN Reason: NAUSEA Pantoprazole Sodium (Protonix Iv) 40 mg IVPUSH DAILY [facility] Last Admin: 12/29/18 10:11 Dose: 40 mg Potassium Phos/Sodium Phos (Phos-Nak Packet -) 1 packet PO TID [facility] Last Admin: 12/29/18 06:00 Dose: 1 packet Propranolol HCl (Inderal -) 60 mg PO Q6H [facility] Last Admin: 12/29/18 10:12 Dose: 60 mg Propranolol HCl (Inderal Injection -) 1 mg IVPUSH Q1H PRN PRN Reason: TACHYCARDIA 83 year old woman with hx of GERD, Dementia, Hypertension, Benigin neoplasm of cerebral maninges who presented with N/V and found to have SBO s/p Ex-lap now with oliguria. #Oliguria with preserved renal function #SBO s/p Ex-lap #Hypotenson/shock #Anemia #Hx of Hypertension #Hypokalemia #Hypophosphatemia Renal function stable and pt is non-oliguric Phos and Mg improved pt with good urine output Lasix as needed Thank you Tono Collins DO
--- NOTE | 2018-12-29 12:06 | PN ---
Progress Note (short form) - Note Progress Note: asymptomatic. denies CP, SOB, fever, chills, N/V/C/D Current Medications Generic Name Dose Route Start Last Admin Trade Name Freq PRN Reason Stop Dose Admin Apixaban 5 mg 12/28/18 22:00 12/29/18 10:11 Eliquis - PO 5 mg BID OBDULIO Administration Diltiazem HCl 60 mg 12/29/18 00:00 12/29/18 06:00 Cardizem - PO 60 mg Q6HPO OBDULIO Administration Diltiazem HCl 10 mg 12/28/18 20:38 Cardizem Injection - IVPUSH Q4H PRN TACHYCARDIA Fluticasone Propionate 2 spray 12/29/18 10:00 12/29/18 10:14 Flonase - NS 2 spray DAILY OBDULIO Administration Piperacillin Sod/Tazobactam 50 mls @ 100 mls/hr 12/28/18 21:00 12/29/18 10:11 Sod 2.25 gm/ Dextrose IVPB 100 mls/hr Q6H-IV OBDULIO Administration Ondansetron HCl 4 mg 12/28/18 20:38 Zofran Injection IVPUSH Q6H PRN NAUSEA Pantoprazole Sodium 40 mg 12/29/18 10:00 12/29/18 10:11 Protonix Iv IVPUSH 40 mg DAILY OBDULIO Administration Potassium Phos/Sodium Phos 1 packet 12/28/18 14:00 12/29/18 06:00 Phos-Nak Packet - PO 1 packet TID OBDULIO Administration Propranolol HCl 60 mg 12/28/18 22:00 12/29/18 10:12 Inderal - PO 60 mg Q6H OBDULIO Administration Propranolol HCl 1 mg 12/28/18 20:38 Inderal Injection - IVPUSH Q1H PRN TACHYCARDIA Last Vital Signs Temp Pulse Resp BP Pulse Ox 97.5 F L 45 L 21 H 112/63 96 12/29/18 10:00 12/29/18 10:00 12/29/18 10:00 12/29/18 10:00 12/28/18 20:43 Intake & Output 12/26/18 12/27/18 12/28/18 12/29/18 23:59 23:59 23:59 23:59 Intake Total 350 1190 1490 Output Total 1600 1200 400 Balance -1250 -10 1090 Weight 160 lb 0.889 oz 146 lb 3 oz 149 lb 14.4 oz General NAD CV S1 S2 tachy Lungs CTA B/L no wheezing/rales/rhonchi Abdomen soft NT/ND midline surgical incision with brook, good approximation. + BS Extremities no pedal edema CBCD WBC 8.0 K/mm3 (4.0-10.0) 12/29/18 05:30 RBC 3.90 M/mm3 (3.60-5.2) 12/29/18 05:30 Hgb 9.4 GM/dL (10.7-15.3) L 12/29/18 05:30 Hct 29.7 % (32.4-45.2) L D 12/29/18 05:30 MCV 76.3 fl (80-96) L 12/29/18 05:30 MCHC 31.6 g/dl (32.0-36.0) L 12/29/18 05:30 RDW 19.2 % (11.6-15.6) H 12/29/18 05:30 Plt Count 299 K/MM3 (134-434) D 12/29/18 05:30 MPV 8.4 fl (7.5-11.1) 12/29/18 05:30 CMP Sodium 137 mmol/L (136-145) 12/29/18 05:30 Potassium 4.2 mmol/L (3.5-5.1) 12/29/18 05:30 Chloride 107 mmol/L (98-107) 12/29/18 05:30 Carbon Dioxide 25 mmol/L (21-32) 12/29/18 05:30 Anion Gap 5 MMOL/L (8-16) L 12/29/18 05:30 BUN 6 mg/dL (7-18) L 12/29/18 05:30 Creatinine 0.4 mg/dL (0.55-1.3) L 12/29/18 05:30 Creat Clearance w eGFR 151.70 (>60) 12/29/18 05:30 Calcium 7.3 mg/dL (8.5-10.1) L 12/29/18 05:30 Total Bilirubin 0.4 mg/dL (0.2-1) 12/29/18 05:30 AST 22 U/L (15-37) 12/29/18 05:30 ALT 18 U/L (13-61) 12/29/18 05:30 Alkaline Phosphatase 56 U/L (45-117) 12/29/18 05:30 Total Protein 4.5 g/dl (6.4-8.2) L 12/29/18 05:30 Albumin 1.6 g/dl (3.4-5.0) L 12/29/18 05:30 Assessment and PLan 83 year old female with PMH atrial fibrillation on Eliquis, GERD, esophagitis, dementia, hallucinations, ataxia, HTN, benign neoplasm of cerebral meninges, who presents to the emergency department via EMS from [facility] 12/21/18 due to nausea and vomiting. Pt was in atrial fibrillation with RVR at presentation. Pt was recently admitted to [facility] 12/13/18-12/20/18 for coffee ground emesis, EGD was negative, colonoscopy was planned for outpatient secondary to electrolyte imbalance and tachycardia. Abdominal CT w/o contrast 12/21/18 shows diffuse to moderate marked dilatation of the small bowel including the terminal ileum with significant dilatation of the cecum and proximal ascending colon up to a point of transition seen in the proximal/mid ascending colon where there is suggestion of wall thickening and collapse of the rest of the colon consistent with obstruction. Pt had right hemicolectomy for obstruction . Post surgery pt was tachycardic and hypotensive and noted to be in aflutter 1. Atrial flutter- difficult to control. HR in 40s this AM and currently 120's. pt is asymptomatic. dilt prn for HR >120. off amio. cont dilt and propanolol at this time. on eliquis. Cardio on board 2. Large bowel obstruction secondary to right colon mass- s/p exploratory laparotomy, right hemicolectomy, primary ileotransverse anastamosis on 12/22. on empiric Zosyn. now leuokcytosis is resolved. will d/w ID about d/c abx. was placed NPO yesterday but unclear why. will place on clears and have re-eval by swallow therapist if can advance diet. will d/w surgery about when brook should be removed. surgery on board. 3. Moderately differentiated adenocarcinoma of the colon- [id number]. oncology has been consulted. will need to f/u as outpatient for adjuvant therapy if performance improves 4. Iron def anemia- Hgb stable. no signs of bleeding. will give venofer while hospitalized 5. hypokalemia-resolved 6. Hypophosphatemia- Resolved 7. HTN- Continue Cardizem, propranolol 8. GERD- Continue Protonix 9. Dementia 10. DVT ppx- Eliquis 11. will need THONG when medically optimized. Visit type - Emergency Visit Emergency Visit: Yes ED Registration Date: 12/22/18 Care time: The patient presented to the Emergency Department on the above date and was hospitalized for further evaluation of their emergent condition. - New Patient This patient is new to me today: Yes Date on this admission: 12/29/18 - Critical Care Critical Care patient: No - Discharge Referral Referred to [facility] Med P.C.: No
[2018-12-29 12:31] LABS: ANISOCYTOSIS 1+; MACROCYTOSIS 0; PLATELET ESTIMATE NORMAL; TEAR DROP CELLS 1+
--- NOTE | 2018-12-29 12:44 | PN ---
Progress Note (short form) - Note Progress Note: Resting in NAD. Denies CP or SOB. No acute events overnight. Periods of Rapid AFib. Intake & Output 12/26/18 12/27/18 12/28/18 12/29/18 23:59 23:59 23:59 23:59 Intake Total 350 1190 1490 Output Total 1600 1200 400 Balance -1250 -10 1090 Weight 160 lb 0.889 oz 146 lb 3 oz 149 lb 14.4 oz Last Vital Signs Temp Pulse Resp BP Pulse Ox 97.4 F L 123 H 20 106/82 96 12/29/18 12:00 12/29/18 12:00 12/29/18 12:00 12/29/18 12:00 12/28/18 20:43 Active Medications Apixaban (Eliquis -) 5 mg PO BID [facility] Last Admin: 12/29/18 10:11 Dose: 5 mg Diltiazem HCl (Cardizem -) 60 mg PO Q6HPO [facility] Last Admin: 12/29/18 06:00 Dose: 60 mg Diltiazem HCl (Cardizem Injection -) 10 mg IVPUSH Q4H PRN PRN Reason: TACHYCARDIA Fluticasone Propionate (Flonase -) 2 spray NS DAILY [facility] Last Admin: 12/29/18 10:14 Dose: 2 spray Piperacillin Sod/Tazobactam (Sod 2.25 gm/ Dextrose) 50 mls @ 100 mls/hr IVPB Q6H-IV [facility] Last Admin: 12/29/18 10:11 Dose: 100 mls/hr Ondansetron HCl (Zofran Injection) 4 mg IVPUSH Q6H PRN PRN Reason: NAUSEA Pantoprazole Sodium (Protonix Iv) 40 mg IVPUSH DAILY [facility] Last Admin: 12/29/18 10:11 Dose: 40 mg Potassium Phos/Sodium Phos (Phos-Nak Packet -) 1 packet PO TID [facility] Last Admin: 12/29/18 06:00 Dose: 1 packet Propranolol HCl (Inderal -) 60 mg PO Q6H [facility] Last Admin: 12/29/18 10:12 Dose: 60 mg Propranolol HCl (Inderal Injection -) 1 mg IVPUSH Q1H PRN PRN Reason: TACHYCARDIA Gen; awake, NAD HEENT: supple, (-) Icterus PULM: Bibasilar rales and rhonchi CV: tachycardia, AFib ABD: midline incision CDI, (+) BS EXT: no edema NEURO: non focal, mildly confused Laboratory Results - last 24 hr 12/28/18 12/29/18 12/29/18 09:25 05:30 05:30 WBC 8.0 RBC 3.90 Hgb 9.4 L Hct 29.7 L D MCV 76.3 L MCH 24.1 L MCHC 31.6 L RDW 19.2 H Plt Count 299 D MPV 8.4 Absolute Neuts (auto) 4.9 Neutrophils % 61.7 Neutrophils % (Manual) 54.6 Band Neutrophils % 0.0 Lymphocytes % 20.0 Lymphocytes % (Manual) 23.2 D Monocytes % 14.1 H Monocytes % (Manual) 16 H D Eosinophils % 3.6 Eosinophils % (Manual) 2.0 D Basophils % 0.6 Basophils % (Manual) 0.0 Myelocytes % (Man) 1 D Promyelocytes % (Man) 0 Blast Cells % (Manual) 0 Nucleated RBC % 1 H Metamyelocytes 1 D Hypochromia 1+ Platelet Estimate Normal Polychromasia 1+ Poikilocytosis 2+ Anisocytosis 1+ Microcytosis 1+ Macrocytosis 0 Tear Drop Cells 1+ Acanthocytes (Spur) 1+ Schistocytes 2+ Sodium 137 Potassium 4.2 Chloride 107 Carbon Dioxide 25 Anion Gap 5 L BUN 6 L Creatinine 0.4 L Creat Clearance w eGFR 151.70 Random Glucose 95 Calcium 7.3 L Phosphorus 2.9 Magnesium 2.3 Iron 13 L TIBC 179 L Iron Saturation 7 L Transferrin 137 L Total Bilirubin 0.4 AST 22 ALT 18 Alkaline Phosphatase 56 B-Natriuretic Peptide 3020.1 H Total Protein 4.5 L Albumin 1.6 L IMP: Sepsis Relative hypotension Rapid AFlutter LBO S/P Exlap Delerium PLAN: ABX per ID Rate control per Cardiology Monitor off IVF Lasix Strict I & O VTE prophylaxis Aspiration precautions Cardiac Telemetry monitoring Dr Monroe
[2018-12-29] MEDS ORDERED: IRON SUCROSE INJECTION 200 MG in SODIUM CHLORIDE 90 ML IVPB ONE (12:49)
--- NOTE | 2018-12-29 15:15 | PN ---
Progress Note, Physician History of Present Illness: stable no new issues still continues to be tachycardiac - Current Medication List Current Medications: Active Medications Apixaban (Eliquis -) 5 mg PO BID [facility] Last Admin: 12/29/18 10:11 Dose: 5 mg Diltiazem HCl (Cardizem -) 60 mg PO Q6HPO [facility] Last Admin: 12/29/18 06:00 Dose: 60 mg Diltiazem HCl (Cardizem Injection -) 10 mg IVPUSH Q4H PRN PRN Reason: TACHYCARDIA Fluticasone Propionate (Flonase -) 2 spray NS DAILY [facility] Last Admin: 12/29/18 10:14 Dose: 2 spray Ondansetron HCl (Zofran Injection) 4 mg IVPUSH Q6H PRN PRN Reason: NAUSEA Pantoprazole Sodium (Protonix Iv) 40 mg IVPUSH DAILY [facility] [place] Last Admin: 12/29/18 10:11 Dose: 40 mg Potassium Phos/Sodium Phos (Phos-Nak Packet -) 1 packet PO TID [facility] Last Admin: 12/29/18 06:00 Dose: 1 packet Propranolol HCl (Inderal -) 60 mg PO Q6H [facility] Last Admin: 12/29/18 10:12 Dose: 60 mg Propranolol HCl (Inderal Injection -) 1 mg IVPUSH Q1H PRN PRN Reason: TACHYCARDIA - Objective Vital Signs: Vital Signs Temperature 97.7 F 12/29/18 14:00 Pulse Rate 126 H 12/29/18 14:00 Respiratory Rate 21 H 12/29/18 14:00 Blood Pressure 110/76 12/29/18 14:00 O2 Sat by Pulse Oximetry (%) 96 12/28/18 20:43 Constitutional: Yes: No Distress, Calm Cardiovascular: Yes: Regular Rate and Rhythm Respiratory: Yes: Regular, CTA Bilaterally Gastrointestinal: Yes: Normal Bowel Sounds, Soft Musculoskeletal: Yes: WNL Extremities: Yes: WNL Neurological: Yes: Alert, Oriented Psychiatric: Yes: Alert, Oriented Labs: CBC, BMP 12/29/18 05:30 12/29/18 05:30 INR, PTT INR 1.13 (0.83-1.09) H 12/21/18 09:35 Assessment/Plan - Problems (1) Colon obstruction Code(s): K56.609 - UNSP INTESTNL OBST, UNSP TO PARTIAL VERSUS COMPLETE OBST (2) Atrial fibrillation with RVR Code(s): I48.91 - UNSPECIFIED ATRIAL FIBRILLATION (3) Dementia Code(s): F03.90 - UNSPECIFIED DEMENTIA WITHOUT BEHAVIORAL DISTURBANCE (4) Esophagitis Code(s): K20.9 - ESOPHAGITIS, UNSPECIFIED (5) GERD (gastroesophageal reflux disease) Code(s): K21.9 - GASTRO-ESOPHAGEAL REFLUX DISEASE WITHOUT ESOPHAGITIS (6) Hypertension Code(s): I10 - ESSENTIAL (PRIMARY) HYPERTENSION Qualifiers: Hypertension type: essential hypertension Qualified Code(s): I10 - Essential (primary) hypertension leukocytosis plan will change abx to oral continue monitoring rest as per the team patient stable
[2018-12-29] MEDS: AMOX TR/POT CLAV 875MG/125MG TABLETS (FP) PO SCH (17:01)
[2018-12-30] MEDS: dilTIAZem HCL 60 MG TABLET (FP) PO SCH ×4 (00:47→17:28)
[2018-12-30] MEDS: NAPH,MB-DB/K PH,MBDB POWDER PACKET PO SCH ×3 (06:31→22:51)
--- NOTE | 2018-12-30 08:27 | PN ---
Progress Note, Physician Chief Complaint: afib History of Present Illness: denies palpitations. no chest pressure/pain/heavy. no sob. no syncope no cigs - Current Medication List Current Medications: Active Medications Amoxicillin/Clavulanate Potassium (Augmentin - 875mg Tablet) 1 tab PO BID@0800, 1730 [facility] Last Admin: 12/29/18 17:01 Dose: 1 tab Apixaban (Eliquis -) 5 mg PO BID [facility] Last Admin: 12/29/18 21:52 Dose: 5 mg Diltiazem HCl (Cardizem -) 60 mg PO Q6HPO [facility] Last Admin: 12/30/18 06:30 Dose: 60 mg Diltiazem HCl (Cardizem Injection -) 10 mg IVPUSH Q4H PRN PRN Reason: TACHYCARDIA Fluticasone Propionate (Flonase -) 2 spray NS DAILY [facility] Last Admin: 12/29/18 10:14 Dose: 2 spray Ondansetron HCl (Zofran Injection) 4 mg IVPUSH Q6H PRN PRN Reason: NAUSEA Pantoprazole Sodium (Protonix Iv) 40 mg IVPUSH DAILY [facility] Last Admin: 12/29/18 10:11 Dose: 40 mg Potassium Phos/Sodium Phos (Phos-Nak Packet -) 1 packet PO TID [facility] Last Admin: 12/30/18 06:31 Dose: 1 packet Propranolol HCl (Inderal -) 60 mg PO Q6H [facility] Last Admin: 12/30/18 03:03 Dose: 60 mg Propranolol HCl (Inderal Injection -) 1 mg IVPUSH Q1H PRN PRN Reason: TACHYCARDIA - Objective Vital Signs: Vital Signs Temperature 98.9 F 12/30/18 06:00 Pulse Rate 121 H 12/30/18 06:00 Respiratory Rate 18 12/30/18 06:00 Blood Pressure 110/78 12/30/18 06:00 O2 Sat by Pulse Oximetry (%) 97 12/30/18 08:15 Constitutional: Yes: No Distress, Calm Eyes: No: Sclera Icterus HENT: No: Nasal Congestion Cardiovascular: Yes: Pulse Irregular, S1, S2, Other (PMI non diplaced). No: Gallop, Murmur Respiratory: Yes: CTA Bilaterally. No: Accessory Muscle Use, Rales, Wheezes Gastrointestinal: Yes: Normal Bowel Sounds, Soft. No: Tenderness Musculoskeletal: Yes: Other (No kyphosis) Extremities: No: Cold, Cyanosis Edema: No (SCDs) Integumentary: No: Jaundice Neurological: Yes: Alert, Oriented (x3) Psychiatric: No: Agitated Labs: CBC, BMP 12/29/18 05:30 12/29/18 05:30 INR, PTT INR 1.13 (0.83-1.09) H 12/21/18 09:35 Assessment/Plan ecg: aflutter with 2:1 avb, vr 127, no ischemic changes CXR 12/28: slight incr bilat pulm/pleural changes Echo 12/2018: small LV cavity, hyperdynamic. mild-mod dilated RV, hyperdynamic RVSF. mild ERIK. mild-mod MR (eccentric). RVSP 30-35 tele: cassieutter, rates reasonable a/p: 83 f hx dementia, afib/flutter, gerd, htn, tia, sent from [place] for coffee ground emesis. aflutter: - was on diltiazem 60 mg QID and propranolol 120 mg BID at home-->npo postop bowel surgery with tachycardia and hypotensive on levophed-->amio gtt started with persistent tachycardia. hemodynamics improved-->amio d/c'd, prn iv diltiazem ordered - 12/25: H?R 140s, no response to IV diltiazem pushes, SBP dropped to 80s. d/w'd icu team: will start non-chronotropic vasoconstrictor pressor, then initiate low dose PO and IV propranolol trial for HR control. - eliquis held briefly during 12/05 admit with GIB, resumed on discharge with plan for outpt GI scopes. H/H were stable when arrived this time with SBO, eliquis now on hold for surgery - 12/26: HR remains 130s, will increase propranolol to 60 mg QID (home dose is propranolol long acting 120 mg BID). If BP tolerates would restart PO diltiazem as well, at home was on 60 mg QID - 12/27: eliquis resumed, HR 130s. change eliquis to 5 mg BID dosing (age >78 however she is >60 kg and Cr <1.5, does not meet criteria for low dose and was on full dose prior). BP improved today, will restart diltiazem 60 mg Q6H 12/28: HR improved but still fast at times, cont same dilt/inderal for now as bp on low side and monitor on tele. -12/29-: rates reasonable, continue same bb/ccb pleural effusions, acute diast CHF - pulm congestion on CXR after receiving IVF here - fluids off, being diuresed--appears euvolemic, clear lungs - echo with dilated RV (normal function), no signific pulm HTN per TR gradient measurable on that study. AC had been held here for several days preop/postop-- rec CTA to r/o PE (also may explain episodic postop hypotension, tachycardia, hypoxia). check LE venous dopplers htn: -bb/ccb resumed--watch for low BPs GIB: -recent admit for GIB, hgb stable here -plans per GI were outpt scopes sbo: -s/p surgery, found to have colon ca, onc following
[2018-12-30] MEDS ORDERED: PT OWN MED DRAWER 7, Y5N ONE (09:37)
[2018-12-30] MEDS: APIXABAN 5 MG TABLET PO SCH ×2 (09:39→22:51)
[2018-12-30] MEDS: AMOX TR/POT CLAV 875MG/125MG TABLETS (FP) PO SCH ×2 (09:39→17:28)
[2018-12-30] MEDS: FLUTICASONE PROP 0.05% 16 GM NASAL SPRAY NS SCH (09:40)
[2018-12-30] MEDS: PANTOPRAZOLE SODIUM 40 MG VIAL IVPUSH SCH (09:41)
--- NOTE | 2018-12-30 11:39 | PN ---
Progress Note (short form) - Note Progress Note: PULMONARY Denies shortness of breath or chest pain. Still with rapid rates. Vital Signs Period Temp Pulse Resp BP Sys/Germain Pulse Ox Last 24 Hr 97.3 F-99.1 F 120-126 18-21 106-113/74-88 96-97 Gen: NAD at rest Heart: tachycardic Lung: decreased breath sounds at the bases Abd: soft, nontender Ext: no edema CBC, BMP 12/29/18 05:30 12/29/18 05:30 Active Medications Amoxicillin/Clavulanate Potassium (Augmentin - 875mg Tablet) 1 tab PO BID@0800, 1730 [facility] Last Admin: 12/30/18 09:39 Dose: 1 tab Apixaban (Eliquis -) 5 mg PO BID [facility] Last Admin: 12/30/18 09:39 Dose: 5 mg Diltiazem HCl (Cardizem -) 60 mg PO Q6HPO [facility] Last Admin: 12/30/18 06:30 Dose: 60 mg Diltiazem HCl (Cardizem Injection -) 10 mg IVPUSH Q4H PRN PRN Reason: TACHYCARDIA Fluticasone Propionate (Flonase -) 2 spray NS DAILY [facility] Last Admin: 12/30/18 09:40 Dose: 2 spray Ondansetron HCl (Zofran Injection) 4 mg IVPUSH Q6H PRN PRN Reason: NAUSEA Pantoprazole Sodium (Protonix Iv) 40 mg IVPUSH DAILY [facility] Last Admin: 12/30/18 09:41 Dose: 40 mg Potassium Phos/Sodium Phos (Phos-Nak Packet -) 1 packet PO TID [facility] Last Admin: 12/30/18 06:31 Dose: 1 packet Propranolol HCl (Inderal -) 60 mg PO Q6H [facility] Last Admin: 12/30/18 09:41 Dose: 60 mg Propranolol HCl (Inderal Injection -) 1 mg IVPUSH Q1H PRN PRN Reason: TACHYCARDIA A/P Large Bowel Obstruction/Ascending Colon Mass s/p ex-lap/right hemicolectomy/primary ileotransverse anastamosis Atrial Fibrillation/Flutter with RVR HTN GERD Dementia - pain control - incentive spirometry - rate control per cardiology - continue anticoagulation - agree with CTA chest - PO as tolerated - on antibiotics per ID
--- NOTE | 2018-12-30 11:50 | PN ---
Physical Exam: SUBJECTIVE: Patient seen and examined. She has no complaints. She denies chest pain, palpitations, SOB. OBJECTIVE: Vital Signs Period Temp Pulse Resp BP Sys/Germain Pulse Ox Last 24 Hr 97.3 F-99.1 F 120-126 18-21 106-113/74-88 96-97 GENERAL: The patient is awake, alert, confused, in no acute distress. LUNGS: Breath sounds equal, clear to auscultation bilaterally, no wheezes, no crackles, no accessory muscle use. HEART: Regular rhythm, tachycardic, S1 S2 without murmur, rub or gallop. ABDOMEN: Soft, nontender, nondistended, normoactive bowel sounds, no guarding, no rebound, no hepatosplenomegaly, no masses. EXTREMITIES: 2+ pulses, warm, well-perfused, no edema. Laboratory Results - last 24 hr 12/29/18 05:30 Neutrophils % (Manual) 54.6 Band Neutrophils % 0.0 Lymphocytes % (Manual) 23.2 D Monocytes % (Manual) 16 H D Eosinophils % (Manual) 2.0 D Basophils % (Manual) 0.0 Myelocytes % (Man) 1 D Promyelocytes % (Man) 0 Blast Cells % (Manual) 0 Nucleated RBC % 1 H Metamyelocytes 1 D Hypochromia 1+ Platelet Estimate Normal Polychromasia 1+ Poikilocytosis 2+ Anisocytosis 1+ Microcytosis 1+ Macrocytosis 0 Tear Drop Cells 1+ Acanthocytes (Spur) 1+ Schistocytes 2+ Active Medications Generic Name Dose Route Start Last Admin Trade Name Freq PRN Reason Stop Dose Admin Amoxicillin/Clavulanate Potassium 1 tab 12/29/18 17:30 12/30/18 09:39 Augmentin - 875mg Tablet PO 1 tab BID@0800,1730 OBDULIO Administration Apixaban 5 mg 12/28/18 22:00 12/30/18 09:39 Eliquis - PO 5 mg BID OBDULIO Administration Diltiazem HCl 60 mg 12/29/18 00:00 12/30/18 06:30 Cardizem - PO 60 mg Q6HPO OBDULIO Administration Diltiazem HCl 10 mg 12/28/18 20:38 Cardizem Injection - IVPUSH Q4H PRN TACHYCARDIA Fluticasone Propionate 2 spray 12/29/18 10:00 12/30/18 09:40 Flonase - NS 2 spray DAILY OBDULIO Administration Ondansetron HCl 4 mg 12/28/18 20:38 Zofran Injection IVPUSH Q6H PRN NAUSEA Pantoprazole Sodium 40 mg 12/29/18 10:00 12/30/18 09:41 Protonix Iv IVPUSH 40 mg DAILY OBDULIO Administration Potassium Phos/Sodium Phos 1 packet 12/28/18 14:00 12/30/18 06:31 Phos-Nak Packet - PO 1 packet TID OBDULIO Administration Propranolol HCl 60 mg 12/28/18 22:00 12/30/18 09:41 Inderal - PO 60 mg Q6H OBDULIO Administration Propranolol HCl 1 mg 12/28/18 20:38 Inderal Injection - IVPUSH Q1H PRN TACHYCARDIA ASSESSMENT/PLAN: This is an 83 year old woman with a history of HTN, atrial fibrillation, GERD, esophagitis, dementia, benign neoplasm of cerebral meninges who was sent to the ED from [facility] because of nausea and vomiting. 1. Atrial flutter - Off amiodarone drip - Continue propranolol, Cardizem PO, Cardizem IV as needed, Eliquis - HR remains uncontrolled - venous leg dopplers and CTA ordered to evaluate for DVT/PE 2. Large bowel obstruction secondary to mass of right colon - s/p exploratory laparotomy, right hemicolectomy, primary ileotransverse anastamosis on 12/22 - Path is pT4a pN1b moderately differentiated adenocarcinoma - Zosyn changed to Augmentin - Tolerating clear liquids 3. Hypotension - Improved 4. Hypokalemia - Improved 5. Hypophosphatemia - Improved 6. HTN - Continue Cardizem, propranolol 7. GERD - Continue Protonix 8. Dementia 9. Anemia secondary to chronic illness, iron deficiency - Hemoglobin is stable - continue to monitor Visit type - Emergency Visit Emergency Visit: Yes ED Registration Date: 12/22/18 Care time: The patient presented to the Emergency Department on the above date and was hospitalized for further evaluation of their emergent condition. - New Patient This patient is new to me today: No - Critical Care Critical Care patient: No - Discharge Referral Referred to [facility] Med P.C.: No
--- NOTE | 2018-12-30 17:11 | PN ---
Progress Note, Physician Chief Complaint: LBO History of Present Illness: 83 yo female PMH reflux, esophagitis, dementia, hallucinations, ataxia, HTN, benign neoplasm of cerebral meninges, who presents to the emergency department via EMS from [facility] due to nausea and vomiting that started today. She has been stable since surgery. - Current Medication List Current Medications: Active Medications Amoxicillin/Clavulanate Potassium (Augmentin - 875mg Tablet) 1 tab PO BID@0800, 1730 [facility] Last Admin: 12/30/18 09:39 Dose: 1 tab Apixaban (Eliquis -) 5 mg PO BID [facility] Last Admin: 12/30/18 09:39 Dose: 5 mg Diltiazem HCl (Cardizem -) 60 mg PO Q6HPO [facility] Last Admin: 12/30/18 13:04 Dose: 60 mg Diltiazem HCl (Cardizem Injection -) 10 mg IVPUSH Q4H PRN PRN Reason: TACHYCARDIA Fluticasone Propionate (Flonase -) 2 spray NS DAILY [facility] Last Admin: 12/30/18 09:40 Dose: 2 spray Ondansetron HCl (Zofran Injection) 4 mg IVPUSH Q6H PRN PRN Reason: NAUSEA Pantoprazole Sodium (Protonix Iv) 40 mg IVPUSH DAILY [facility] Last Admin: 12/30/18 09:41 Dose: 40 mg Potassium Phos/Sodium Phos (Phos-Nak Packet -) 1 packet PO TID [facility] Last Admin: 12/30/18 13:09 Dose: 1 packet Propranolol HCl (Inderal -) 60 mg PO Q6H [facility] Last Admin: 12/30/18 09:41 Dose: 60 mg Propranolol HCl (Inderal Injection -) 1 mg IVPUSH Q1H PRN PRN Reason: TACHYCARDIA - Objective Vital Signs: Vital Signs Temperature 97.6 F 12/30/18 14:00 Pulse Rate 105 H 12/30/18 14:00 Respiratory Rate 19 12/30/18 14:00 Blood Pressure 114/71 12/30/18 14:00 O2 Sat by Pulse Oximetry (%) 97 12/30/18 08:15 Intake & Output 01/01/19 01/02/19 01/02/19 23:59 07:59 15:59 Other: Voiding Method Incontinent Incontinent # Unmeasured Voids Void 1 2 Bowel Movement Yes: liquid chaney Yes # Bowel Movements 2 Constitutional: Yes: Well Nourished, No Distress, Calm Eyes: Yes: Conjunctiva Clear, EOM Intact HENT: Yes: Atraumatic, Normocephalic Neck: Yes: Supple, Trachea Midline Cardiovascular: Yes: Regular Rate and Rhythm, S1, S2 Respiratory: Yes: Regular, CTA Bilaterally Gastrointestinal: Yes: Normal Bowel Sounds, Soft ...Rectal Exam: Yes: Deferred Genitourinary: No: CVA Tenderness - Left, CVA Tenderness - Right Breast(s): No: Dimpling, Skin Changes Musculoskeletal: No: Joint Stiffness, Joint Swelling Extremities: No: Cool, Cyanosis Edema: Yes Edema: LUE: Trace, RUE: Trace, LLE: Trace, RLE: Trace Peripheral Pulses WNL: Yes Peripheral Pulses: Left Radial: 2+, Right Radial: 2+, Left Doralis Pedis: 2+, Right Dorsalis Pedis: 2+, Left Femoral: 2+, Right Femoral: 2+ Integumentary: No: Jaundice, Rash Wound/Incision: Yes: Clean/Dry, Well Approximated, Open to air Neurological: Yes: Alert, Confusion. No: Oriented Psychiatric: Yes: Alert. No: Oriented Labs: CBC, BMP 12/29/18 05:30 12/29/18 05:30 INR, PTT INR 1.13 (0.83-1.09) H 12/21/ 09:35 Problem List - Problems (1) Colon obstruction Assessment/Plan: 83yo female returned from [place] the next morning after discharge with feculent emesis and an identified large bowel obstruction suspicious for malignancy. this may be a missed diagnosis from previous admission. POD#6 s/p Right hemicolectomy for an obstructing colon mass Diet as tolerated IVF hydration IV antibiotics per ID trend labs Early mobilization OOB encourage IS ID consult for continued antibiotics This patient is critically ill. Time spent reviewing chart, examining patient, talking with providers and/or family and documentation is 35 minutes. Code(s): K56.609 - UNSP INTESTNL OBST, UNSP TO PARTIAL VERSUS COMPLETE OBST (2) Atrial fibrillation with RVR Code(s): I48.91 - UNSPECIFIED ATRIAL FIBRILLATION (3) Dementia Code(s): F03.90 - UNSPECIFIED DEMENTIA WITHOUT BEHAVIORAL DISTURBANCE (4) Esophagitis Code(s): K20.9 - ESOPHAGITIS, UNSPECIFIED (5) GERD (gastroesophageal reflux disease) Code(s): K21.9 - GASTRO-ESOPHAGEAL REFLUX DISEASE WITHOUT ESOPHAGITIS (6) Hypertension Code(s): I10 - ESSENTIAL (PRIMARY) HYPERTENSION Qualifiers: Hypertension type: essential hypertension Qualified Code(s): I10 - Essential (primary) hypertension
--- NOTE | 2018-12-30 19:56 | PN ---
Progress Note, Physician History of Present Illness: Pt is afebrile, remains tachycardic, otherwise afebrile, without acute distress. - Current Medication List Current Medications: Active Medications Amoxicillin/Clavulanate Potassium (Augmentin - 875mg Tablet) 1 tab PO BID@0800, 1730 [facility] Last Admin: 12/30/18 17:28 Dose: 1 tab Apixaban (Eliquis -) 5 mg PO BID [facility] Last Admin: 12/30/18 09:39 Dose: 5 mg Diltiazem HCl (Cardizem -) 60 mg PO Q6HPO [facility] Last Admin: 12/30/18 17:28 Dose: 60 mg Diltiazem HCl (Cardizem Injection -) 10 mg IVPUSH Q4H PRN PRN Reason: TACHYCARDIA Fluticasone Propionate (Flonase -) 2 spray NS DAILY [facility] Last Admin: 12/30/18 09:40 Dose: 2 spray Ondansetron HCl (Zofran Injection) 4 mg IVPUSH Q6H PRN PRN Reason: NAUSEA Pantoprazole Sodium (Protonix Iv) 40 mg IVPUSH DAILY [facility] Last Admin: 12/30/18 09:41 Dose: 40 mg Potassium Phos/Sodium Phos (Phos-Nak Packet -) 1 packet PO TID [facility] Last Admin: 12/30/18 13:09 Dose: 1 packet Propranolol HCl (Inderal -) 60 mg PO Q6H [facility] Last Admin: 12/30/18 17:28 Dose: 60 mg Propranolol HCl (Inderal Injection -) 1 mg IVPUSH Q1H PRN PRN Reason: TACHYCARDIA - Objective Vital Signs: Vital Signs Temperature 97.6 F 12/30/18 14:00 Pulse Rate 122 H 12/30/18 18:00 Respiratory Rate 21 H 12/30/18 18:00 Blood Pressure 110/67 12/30/18 18:00 O2 Sat by Pulse Oximetry (%) 97 12/30/18 08:15 Constitutional: Yes: No Distress Cardiovascular: Yes: Tachycardia Respiratory: Yes: Regular Gastrointestinal: Yes: Normal Bowel Sounds, Soft Integumentary: Yes: WNL Neurological: Yes: Alert Labs: CBC, BMP 12/29/18 05:30 12/29/18 05:30 INR, PTT INR 1.13 (0.83-1.09) H 12/21/18 09:35 Microbiology 12/22/18 22:00 Peritoneal Fluid Gram Stain - Final 12/22/18 22:00 Peritoneal Fluid Body Fluid Culture - Final NO GROWTH OF AEROBIC ORGANISMS AFTER 48 HOURS INCUBATION 12/22/18 22:00 Peritoneal Fluid Anaerobic Culture - Final NO ANAEROBES WERE ISOLATED 12/23/18 11:51 Urine - Urine Andre Urine Culture - Final NO GROWTH OBTAINED 12/22/18 01:25 Urine - Urine Clean Catch Urine Culture - Final Contaminated: Please Repeat Assessment/Plan Bowel Obstruction/Colon Mass s/p Ex-lap / Hemicolectomy GERD AFIB/flutter Anemia -- continue augmentin for now -- pt is afebrile, alert but weak -- vitals being monitored, no distress
[2018-12-31] MEDS: NAPH,MB-DB/K PH,MBDB POWDER PACKET PO SCH ×3 (06:27→21:08)
[2018-12-31] MEDS: dilTIAZem HCL 60 MG TABLET (FP) PO SCH ×4 (06:27→17:40)
[2018-12-31 06:37] LABS: HEMOGLOBIN 9.4 GM/dL (10.7-15.3); MCH 24.4 pg (25.7-33.7); MCHC 32.3 g/dl (32.0-36.0); MEAN CELL VOLUME 75.7 fl (80-96); MEAN PLT VOLUME 8.1 fl (7.5-11.1); PLATELET COUNT 425 K/MM3 (134-434); RBC 3.83 M/mm3 (3.60-5.2); RDW 18.9 % (11.6-15.6); WHITE BLOOD COUNT 11.1 K/mm3 (4.0-10.0)
[2018-12-31 06:39] LABS: ANION GAP 6 MMOL/L (8-16); BLOOD UREA NITROGEN 4 mg/dL (7-18); CALCIUM 7.6 mg/dL (8.5-10.1); CHLORIDE 105 mmol/L (98-107); CO2 27 mmol/L (21-32); CREATININE 0.3 mg/dL (0.55-1.3); GLUCOSE,RANDOM 80 mg/dL (74-106); POTASSIUM 3.9 mmol/L (3.5-5.1); SODIUM 137 mmol/L (136-145)
[2018-12-31] MEDS: AMOX TR/POT CLAV 875MG/125MG TABLETS (FP) PO SCH ×2 (08:37→17:40)
[2018-12-31] MEDS: FLUTICASONE PROP 0.05% 16 GM NASAL SPRAY NS SCH (08:59)
[2018-12-31] MEDS: PANTOPRAZOLE SODIUM 40 MG VIAL IVPUSH SCH (08:59)
[2018-12-31] MEDS: APIXABAN 5 MG TABLET PO SCH ×2 (08:59→21:07)
--- NOTE | 2018-12-31 09:51 | PN ---
Progress Note (short form) - Note Progress Note: PULMONARY Denies shortness of breath or chest pain. Heart rates much better controlled currently 60s. Vital Signs Period Temp Pulse Resp BP Sys/Germain Pulse Ox Last 24 Hr 97.6 F-98.9 F 78-122 16-22 98-119/50-95 96-97 Gen: NAD at rest Heart: tachycardic Lung: decreased breath sounds at the bases Abd: soft, nontender Ext: no edema CBC, BMP 12/31/18 05:15 12/31/18 05:15 Active Medications Amoxicillin/Clavulanate Potassium (Augmentin - 875mg Tablet) 1 tab PO BID@0800, 1730 [facility] Last Admin: 12/31/18 08:37 Dose: 1 tab Apixaban (Eliquis -) 5 mg PO BID [facility] Last Admin: 12/31/18 08:59 Dose: 5 mg Diltiazem HCl (Cardizem -) 60 mg PO Q6HPO [facility] Last Admin: 12/31/18 06:27 Dose: 60 mg Diltiazem HCl (Cardizem Injection -) 10 mg IVPUSH Q4H PRN PRN Reason: TACHYCARDIA Fluticasone Propionate (Flonase -) 2 spray NS DAILY [facility] Last Admin: 12/31/18 08:59 Dose: 2 spray Ondansetron HCl (Zofran Injection) 4 mg IVPUSH Q6H PRN PRN Reason: NAUSEA Pantoprazole Sodium (Protonix Iv) 40 mg IVPUSH DAILY [facility] Last Admin: 12/31/18 08:59 Dose: 40 mg Potassium Phos/Sodium Phos (Phos-Nak Packet -) 1 packet PO TID [facility] Last Admin: 12/31/18 06:27 Dose: 1 packet Propranolol HCl (Inderal -) 60 mg PO Q6H [facility] Last Admin: 12/31/18 09:00 Dose: 60 mg Propranolol HCl (Inderal Injection -) 1 mg IVPUSH Q1H PRN PRN Reason: TACHYCARDIA A/P Large Bowel Obstruction/Ascending Colon Mass s/p ex-lap/right hemicolectomy/primary ileotransverse anastamosis Atrial Fibrillation/Flutter with RVR HTN GERD Dementia - pain control - incentive spirometry - rate control per cardiology - continue anticoagulation - agree with CTA chest - PO as tolerated - on antibiotics per ID
--- NOTE | 2018-12-31 10:31 | PN ---
Progress Note, Physician Chief Complaint: afib History of Present Illness: denies cp, sob, palpitations, syncope - Current Medication List Current Medications: Active Medications Amoxicillin/Clavulanate Potassium (Augmentin - 875mg Tablet) 1 tab PO BID@0800, 1730 [facility] Last Admin: 12/31/18 08:37 Dose: 1 tab Apixaban (Eliquis -) 5 mg PO BID [facility] Last Admin: 12/31/18 08:59 Dose: 5 mg Diltiazem HCl (Cardizem -) 60 mg PO Q6HPO [facility] Last Admin: 12/31/18 06:27 Dose: 60 mg Diltiazem HCl (Cardizem Injection -) 10 mg IVPUSH Q4H PRN PRN Reason: TACHYCARDIA Fluticasone Propionate (Flonase -) 2 spray NS DAILY [facility] Last Admin: 12/31/18 08:59 Dose: 2 spray Ondansetron HCl (Zofran Injection) 4 mg IVPUSH Q6H PRN PRN Reason: NAUSEA Pantoprazole Sodium (Protonix Iv) 40 mg IVPUSH DAILY [facility] Last Admin: 12/31/18 08:59 Dose: 40 mg Potassium Phos/Sodium Phos (Phos-Nak Packet -) 1 packet PO TID [facility] Last Admin: 12/31/18 06:27 Dose: 1 packet Propranolol HCl (Inderal -) 60 mg PO Q6H [facility] Last Admin: 12/31/18 09:00 Dose: 60 mg Propranolol HCl (Inderal Injection -) 1 mg IVPUSH Q1H PRN PRN Reason: TACHYCARDIA - Objective Vital Signs: Vital Signs Temperature 98.1 F 12/31/18 06:00 Pulse Rate 78 12/31/18 09:03 Respiratory Rate 20 12/31/18 09:03 Blood Pressure 98/50 L 12/31/18 09:03 O2 Sat by Pulse Oximetry (%) 96 12/31/18 07:25 Constitutional: Yes: Well Nourished, No Distress, Calm Cardiovascular: Yes: Pulse Irregular, S1, S2. No: Gallop, Murmur Respiratory: Yes: Regular, CTA Bilaterally. No: Accessory Muscle Use, Rales Extremities: No: Cold Edema: No Neurological: Yes: Alert. No: Seizure Psychiatric: No: Agitated Labs: CBC, BMP 12/31/18 05:15 12/31/18 05:15 INR, PTT INR 1.13 (0.83-1.09) H 12/21/18 09:35 Assessment/Plan ecg: aflutter with 2:1 avb, vr 127, no ischemic changes CXR 12/28: slight incr bilat pulm/pleural changes Echo 12/2018: small LV cavity, hyperdynamic. mild-mod dilated RV, hyperdynamic RVSF. mild ERIK. mild-mod MR (eccentric). RVSP 30-35 tele: AF/flutter, HRs good a/p: 83 f hx dementia, afib/flutter, gerd, htn, tia, sent from [facility] for coffee ground emesis. aflutter: - was on diltiazem 60 mg QID and propranolol 120 mg BID at home-->npo postop bowel surgery with tachycardia and hypotensive on levophed-->amio gtt started with persistent tachycardia. hemodynamics improved-->amio d/c'd, prn iv diltiazem ordered - 12/25: H?R 140s, no response to IV diltiazem pushes, SBP dropped to 80s. d/w'd icu team: will start non-chronotropic vasoconstrictor pressor, then initiate low dose PO and IV propranolol trial for HR control. - eliquis held briefly during 12/05 admit with GIB, resumed on discharge with plan for outpt GI scopes. H/H were stable when arrived this time with SBO, eliquis now on hold for surgery - 12/26: HR remains 130s, will increase propranolol to 60 mg QID (home dose is propranolol long acting 120 mg BID). If BP tolerates would restart PO diltiazem as well, at home was on 60 mg QID - 12/27: eliquis resumed, HR 130s. change eliquis to 5 mg BID dosing (age >80 however she is >60 kg and Cr <1.5, does not meet criteria for low dose and was on full dose prior). BP improved today, will restart diltiazem 60 mg Q6H 12/28: HR improved but still fast at times, cont same dilt/inderal for now as bp on low side and monitor on tele. -12/29-: rates good, BPs soft--same meds pleural effusions, acute diast CHF - pulm congestion on CXR after receiving IVF here - fluids off, being diuresed--appears euvolemic, clear lungs - echo with dilated RV (normal function), no signific pulm HTN per TR gradient measurable on that study. AC had been held here for several days preop/postop-- LE vein dopplers not done (dept informed today, they confirm will do study). CTA not done as the dept could not get consent (I was not notified until I asked RN to follow up today)--will d/w pulm ? V/Q will be diagnostic here htn: -bb/ccb resumed--watch for low BPs GIB: -recent admit for GIB, hgb stable here -plans per GI were outpt scopes sbo: -s/p surgery, found to have colon ca, onc following
--- NOTE | 2018-12-31 15:19 | PN ---
Progress Note, Physician History of Present Illness: Pt is alert and fully responsive. Denies SOB/CP/Abd pain and remains afebrile. WBC minimally elevated. No distress noted. Dopplers neg for DVT. - Current Medication List Current Medications: Active Medications Amoxicillin/Clavulanate Potassium (Augmentin - 875mg Tablet) 1 tab PO BID@0800, 1730 [facility] Last Admin: 12/31/18 08:37 Dose: 1 tab Apixaban (Eliquis -) [address] [facility] Last Admin: 12/31/18 08:59 Dose: 5 mg Diltiazem HCl (Cardizem -) [address] [facility] Last Admin: 12/31/18 12:39 Dose: 60 mg Diltiazem HCl (Cardizem Injection -) 10 mg IVPUSH Q4H PRN PRN Reason: TACHYCARDIA Fluticasone Propionate (Flonase -) [address] [facility] Last Admin: 12/31/18 08:59 Dose: 2 spray Ondansetron HCl (Zofran Injection) 4 mg IVPUSH Q6H PRN PRN Reason: NAUSEA Pantoprazole Sodium (Protonix Iv) [address] [facility] Last Admin: 12/31/18 08:59 Dose: 40 mg Potassium Phos/Sodium Phos (Phos-Nak Packet -) [address] [facility] Last Admin: 12/31/18 13:44 Dose: 1 packet Propranolol HCl (Inderal -) [address] [facility] Last Admin: 12/31/18 15:11 Dose: 60 mg Propranolol HCl (Inderal Injection -) 1 mg IVPUSH Q1H PRN PRN Reason: TACHYCARDIA - Objective Vital Signs: Vital Signs Temperature 98 F 12/31/18 13:44 Pulse Rate 79 12/31/18 15:13 Respiratory Rate 18 12/31/18 15:13 Blood Pressure 95/54 L 12/31/18 15:13 O2 Sat by Pulse Oximetry (%) 96 12/31/18 07:25 Constitutional: Yes: No Distress, Calm Cardiovascular: Yes: Tachycardia, Pulse Irregular Respiratory: Yes: Regular Gastrointestinal: Yes: Normal Bowel Sounds, Soft Extremities: Yes: WNL Integumentary: Yes: WNL Wound/Incision: Yes: Branden Intact Labs: CBC, BMP 12/31/18 05:15 12/31/18 05:15 INR, PTT INR 1.13 (0.83-1.09) H 12/21/18 09:35 Microbiology 12/22/18 22:00 Peritoneal Fluid Gram Stain - Final 12/22/18 22:00 Peritoneal Fluid Body Fluid Culture - Final NO GROWTH OF AEROBIC ORGANISMS AFTER 48 HOURS INCUBATION 12/22/18 22:00 Peritoneal Fluid Anaerobic Culture - Final NO ANAEROBES WERE ISOLATED 12/23/18 11:51 Urine - Urine Andre Urine Culture - Final NO GROWTH OBTAINED 12/22/18 01:25 Urine - Urine Clean Catch Urine Culture - Final Contaminated: Please Repeat - ....Imaging Chest X-ray: Report Reviewed Assessment/Plan Bowel Obstruction/Colon Mass s/p Ex-lap / Hemicolectomy GERD AFIB/flutter Anemia -- continue augmentin for now -- wbc mildly elevated, repeat cbc in a.m. -- f/u urine culture sent -- pt is afebrile, alert and comfortable -- Monitor BP, mildly hypotensive
--- NOTE | 2018-12-31 15:41 | PN ---
Physical Exam: SUBJECTIVE: Patient seen and examined. She has no complaints. She denies chest pain, palpitations, SOB. OBJECTIVE: Vital Signs Period Temp Pulse Resp BP Sys/Germain Pulse Ox Last 24 Hr 98 F-98.4 F 58-122 16-22 90-119/46-95 96-97 GENERAL: The patient is awake, alert, confused, in no acute distress. LUNGS: Breath sounds equal, clear to auscultation bilaterally, no wheezes, no crackles, no accessory muscle use. HEART: Regular rate and rhythm, S1 S2 without murmur, rub or gallop. ABDOMEN: Soft, nontender, nondistended, normoactive bowel sounds, no guarding, no rebound, no hepatosplenomegaly, no masses. EXTREMITIES: 2+ pulses, warm, well-perfused, no edema. Laboratory Results - last 24 hr 12/31/18 12/31/18 05:15 05:15 WBC 11.1 H RBC 3.83 Hgb 9.4 L Hct 29.0 L MCV 75.7 L MCH 24.4 L MCHC 32.3 RDW 18.9 H Plt Count 425 D MPV 8.1 Sodium 137 Potassium 3.9 Chloride 105 Carbon Dioxide 27 Anion Gap 6 L BUN 4 L Creatinine 0.3 L Creat Clearance w eGFR 211.43 Random Glucose 80 Calcium 7.6 L Active Medications Generic Name Dose Route Start Last Admin Trade Name Freq PRN Reason Stop Dose Admin Amoxicillin/Clavulanate Potassium 1 tab 12/29/18 17:30 12/31/18 08:37 Augmentin - 875mg Tablet PO 1 tab BID@0800,1730 OBDULIO Administration Apixaban 5 mg 12/28/18 22:00 12/31/18 08:59 Eliquis - PO 5 mg BID OBDULIO Administration Diltiazem HCl 60 mg 12/29/18 00:00 12/31/18 12:39 Cardizem - PO 60 mg Q6HPO OBDULIO Administration Diltiazem HCl 10 mg 12/28/18 20:38 Cardizem Injection - IVPUSH Q4H PRN TACHYCARDIA Fluticasone Propionate 2 spray 12/29/18 10:00 12/31/18 08:59 Flonase - NS 2 spray DAILY OBDULIO Administration Ondansetron HCl 4 mg 12/28/18 20:38 Zofran Injection IVPUSH Q6H PRN NAUSEA Pantoprazole Sodium 40 mg 12/29/18 10:00 12/31/18 08:59 Protonix Iv IVPUSH 40 mg DAILY OBDULIO Administration Potassium Phos/Sodium Phos 1 packet 12/28/18 14:00 12/31/18 13:44 Phos-Nak Packet - PO 1 packet TID OBDULIO Administration Propranolol HCl 60 mg 12/28/18 22:00 12/31/18 15:11 Inderal - PO 60 mg Q6H OBDULIO Administration Propranolol HCl 1 mg 12/28/18 20:38 Inderal Injection - IVPUSH Q1H PRN TACHYCARDIA ASSESSMENT/PLAN: This is an 83 year old woman with a history of HTN, atrial fibrillation, GERD, esophagitis, dementia, benign neoplasm of cerebral meninges who was sent to the ED from [facility] because of nausea and vomiting. 1. Atrial flutter - Off amiodarone drip - Rate is better today - Continue propranolol, Cardizem PO, Cardizem IV as needed, Eliquis - Venous dopplers show no evidence of DVT - Chest CTA ordered to evaluate for PE 2. 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 Hypotension - Improved 4. Hypokalemia - Improved 5. Hypophosphatemia - Improved 6. HTN - Continue Cardizem, propranolol 7. GERD - Continue Protonix 8. Dementia 9. Anemia secondary to chronic illness, iron deficiency - Hemoglobin is stable - continue to monitor 10. Disposition - Continue PT - Plan for return to [facility] at discharge Visit type - Emergency Visit Emergency Visit: Yes ED Registration Date: 12/22/18 Care time: The patient presented to the Emergency Department on the above date and was hospitalized for further evaluation of their emergent condition. - New Patient This patient is new to me today: No - Critical Care Critical Care patient: No - Discharge Referral Referred to [facility] Med P.[facility] No
[2019-01-01] MEDS: dilTIAZem HCL 60 MG TABLET (FP) PO SCH ×3 (00:11→15:01)
[2019-01-01] MEDS: NAPH,MB-DB/K PH,MBDB POWDER PACKET PO SCH ×3 (06:12→22:03)
[2019-01-01 06:32] LABS: BASO % 0.5 % (0-2.0); EOS % 1.7 % (0-4.5); HEMATOCRIT 27.4 % (32.4-45.2); MCH 24.7 pg (25.7-33.7); MCHC 32.7 g/dl (32.0-36.0); MEAN CELL VOLUME 75.4 fl (80-96); MONO % 7.9 % (3.8-10.2); NEUT % 75.9 % (42.8-82.8); PLATELET COUNT 462 K/MM3 (134-434); RBC 3.63 M/mm3 (3.60-5.2); RDW 18.8 % (11.6-15.6); WHITE BLOOD COUNT 13.1 K/mm3 (4.0-10.0)
[2019-01-01 06:36] LABS: ANION GAP 4 MMOL/L (8-16); CALCIUM 7.5 mg/dL (8.5-10.1); CHLORIDE 106 mmol/L (98-107); CO2 29 mmol/L (21-32); CREATININE 0.4 mg/dL (0.55-1.3); GLUCOSE,RANDOM 80 mg/dL (74-106); POTASSIUM 3.9 mmol/L (3.5-5.1); SODIUM 139 mmol/L (136-145)
[2019-01-01 07:08] LABS: BLOOD UREA NITROGEN 2 mg/dL (7-18)
--- NOTE | 2019-01-01 07:44 | PN ---
Progress Note, Physician History of Present Illness: 83 year old female with past medical history of reflux, encephalitis, dementia, hallucinations, ataxia, HTN, benign neoplasm of cerebral meninges, who presents to the emergency department via EMS from half-way due to nausea and vomiting diagnosed SBO due to CA colon s/p resection, new onset Afib on AC poorly rate controlled - Current Medication List Current Medications: Active Medications Amoxicillin/Clavulanate Potassium (Augmentin - 875mg Tablet) 1 tab PO BID@0800, 1730 [facility] Last Admin: 12/31/18 17:40 Dose: 1 tab Apixaban (Eliquis -) 5 mg PO BID [facility] Last Admin: 12/31/18 21:07 Dose: 5 mg Diltiazem HCl (Cardizem -) 60 mg PO Q6HPO [facility] Last Admin: 01/01/19 06:13 Dose: 60 mg Diltiazem HCl (Cardizem Injection -) 10 mg IVPUSH Q4H PRN PRN Reason: TACHYCARDIA Fluticasone Propionate (Flonase -) 2 spray NS DAILY [facility] Last Admin: 12/31/18 08:59 Dose: 2 spray Ondansetron HCl (Zofran Injection) 4 mg IVPUSH Q6H PRN PRN Reason: NAUSEA Pantoprazole Sodium (Protonix Iv) 40 mg IVPUSH DAILY [facility] Last Admin: 12/31/18 08:59 Dose: 40 mg Potassium Phos/Sodium Phos (Phos-Nak Packet -) 1 packet PO TID [facility] Last Admin: 01/01/19 06:12 Dose: 1 packet Propranolol HCl (Inderal -) 60 mg PO Q6H [facility] Last Admin: 01/01/19 06:12 Dose: 60 mg Propranolol HCl (Inderal Injection -) 1 mg IVPUSH Q1H PRN PRN Reason: TACHYCARDIA - Objective Vital Signs: Vital Signs Temperature 98.4 F 01/01/19 06:00 Pulse Rate 119 H 01/01/19 06:00 Respiratory Rate 20 01/01/19 06:00 Blood Pressure 105/68 01/01/19 06:00 O2 Sat by Pulse Oximetry (%) 96 12/31/18 20:00 Elderly F not in distress still poorly controlled rate HEENT: Mm moist, mild anemia NECK: Supple, No JVD No Bruit CHEST: CTA B/L CVS; S1 S2 Tachycardia Irr ABD: No distention s/p Colostomy EXT: trace edema feet, pulses +, 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 Labs: CBC, BMP 01/01/19 05:30 01/01/19 05:30 INR, PTT INR 1.13 (0.83-1.09) H 12/21/18 09:35 Problem List - Problems (1) Colon obstruction Assessment/Plan: Due to Ca Colon ,Exploratory laparotomy, right toribio colectomy with promary ileotransverse stapled anastomosis Code(s): K56.609 - UNSP INTESTNL OBST, UNSP TO PARTIAL VERSUS COMPLETE OBST (2) Atrial fibrillation with RVR Assessment/Plan: Poorly rtae controlled not on AC RV Dilated in ECHO will go for CTA with PE protocol Code(s): I48.91 - UNSPECIFIED ATRIAL FIBRILLATION (3) GERD (gastroesophageal reflux disease) Assessment/Plan: on PPI Code(s): K21.9 - GASTRO-ESOPHAGEAL REFLUX DISEASE WITHOUT ESOPHAGITIS (4) Hypertension Assessment/Plan: Well Controlled Code(s): I10 - ESSENTIAL (PRIMARY) HYPERTENSION Qualifiers: Hypertension type: essential hypertension Qualified Code(s): I10 - Essential (primary) hypertension (5) Dementia Assessment/Plan: Chronic no active issue Code(s): F03.90 - UNSPECIFIED DEMENTIA WITHOUT BEHAVIORAL DISTURBANCE (6) Anemia Assessment/Plan: chronic H/H are stable Code(s): D64.9 - ANEMIA, UNSPECIFIED
[2019-01-01] MEDS ORDERED: PT OWN MED DRAWER 7, Y5N ONE ×4 (09:53→22:38)
--- NOTE | 2019-01-01 10:15 | PN ---
Progress Note, Physician Chief Complaint: afib History of Present Illness: unable to obtain consent for CTA b/c no answer at phone number with mult messages left for family, per d/w RN pt denies sob, cp, palpit, syncope - Current Medication List Current Medications: Active Medications Amoxicillin/Clavulanate Potassium (Augmentin - 875mg Tablet) 1 tab PO BID@0800, 1730 [facility] Last Admin: 12/31/18 17:40 Dose: 1 tab Apixaban (Eliquis -) 5 mg PO BID [facility] Last Admin: 12/31/18 21:07 Dose: 5 mg Diltiazem HCl (Cardizem -) 60 mg PO Q6HPO [facility] Last Admin: 01/01/19 06:13 Dose: 60 mg Diltiazem HCl (Cardizem Injection -) 10 mg IVPUSH Q4H PRN PRN Reason: TACHYCARDIA Fluticasone Propionate (Flonase -) 2 spray NS DAILY [facility] Last Admin: 12/31/18 08:59 Dose: 2 spray Ondansetron HCl (Zofran Injection) 4 mg IVPUSH Q6H PRN PRN Reason: NAUSEA Pantoprazole Sodium (Protonix Iv) 40 mg IVPUSH DAILY [facility] Last Admin: 12/31/18 08:59 Dose: 40 mg Potassium Phos/Sodium Phos (Phos-Nak Packet -) 1 packet PO TID [facility] Last Admin: 01/01/19 06:12 Dose: 1 packet Propranolol HCl (Inderal -) 60 mg PO Q6H [facility] Last Admin: 01/01/19 06:12 Dose: 60 mg Propranolol HCl (Inderal Injection -) 1 mg IVPUSH Q1H PRN PRN Reason: TACHYCARDIA - Objective Vital Signs: Vital Signs Temperature 98.4 F 01/01/19 06:00 Pulse Rate 117 H 01/01/19 08:04 Respiratory Rate 19 01/01/19 08:04 Blood Pressure 124/86 01/01/19 08:04 O2 Sat by Pulse Oximetry (%) 96 12/31/18 20:00 Constitutional: Yes: Well Nourished, No Distress, Calm Cardiovascular: Yes: Pulse Irregular, S1, S2. No: Gallop, Murmur Respiratory: Yes: Regular, CTA Bilaterally. No: Accessory Muscle Use, Rales, Wheezes Extremities: No: Cold Edema: No Neurological: Yes: Alert. No: Seizure Psychiatric: No: Agitated Labs: CBC, BMP 01/01/19 05:30 01/01/19 05:30 INR, PTT INR 1.13 (0.83-1.09) H 12/21/18 09:35 Assessment/Plan ecg: aflutter with 2:1 avb, vr 127, no ischemic changes CXR 12/28: slight incr bilat pulm/pleural changes Echo 12/2018: small LV cavity, hyperdynamic. mild-mod dilated RV, hyperdynamic RVSF. mild ERIK. mild-mod MR (eccentric). RVSP 30-35 tele: AF/flutter, HRs good a/p: 83 f hx dementia, afib/flutter, gerd, htn, tia, sent [place] for coffee ground emesis. aflutter: - was on diltiazem 60 mg QID and propranolol 120 mg BID at home-->npo postop bowel surgery with tachycardia and hypotensive on levophed-->amio gtt started with persistent tachycardia. hemodynamics improved-->amio d/c'd, prn iv diltiazem ordered - 12/25: H?R 140s, no response to IV diltiazem pushes, SBP dropped to 80s. d/w'd icu team: will start non-chronotropic vasoconstrictor pressor, then initiate low dose PO and IV propranolol trial for HR control. - eliquis held briefly during 12/05 admit with GIB, resumed on discharge with plan for outpt GI scopes. H/H were stable when arrived this time with SBO, eliquis now on hold for surgery - 12/26: HR remains 130s, will increase propranolol to 60 mg QID (home dose is propranolol long acting 120 mg BID). If BP tolerates would restart PO diltiazem as well, at home was on 60 mg QID - 12/27: eliquis resumed, HR 130s. change eliquis to 5 mg BID dosing (age >80 however she is >60 kg and Cr <1.5, does not meet criteria for low dose and was on full dose prior). BP improved today, will restart diltiazem 60 mg Q6H 12/28: HR improved but still fast at times, cont same dilt/inderal for now as bp on low side and monitor on tele. -12/29-: rates good, BPs soft--same meds pleural effusions, acute diast CHF - pulm congestion on CXR after receiving IVF here - fluids off, being diuresed--appears euvolemic, clear lungs - echo with dilated RV (normal function), no signific pulm HTN per TR gradient measurable on that study. Pt at risk for PE given: (1) AC had been held here for several days preop/postop, (2) she has new dx of colon malignancy; (3) she is postop and bedbound. - LE venous dopplers no DVT - d/w'd pulm Dr. Mcintyre--agrees that potential life-saving benefit to pt is substantial if w/u PE here, and her ongoing chest xray congestion precludes definitive V/Q study. will sign 2-PC consent for CTA with contrast (normal renal fxn) htn: -bb/ccb resumed--watch for low BPs sbo: -s/p surgery, found to have colon ca, onc following
[2019-01-01] MEDS: AMOX TR/POT CLAV 875MG/125MG TABLETS (FP) PO SCH ×2 (10:37→17:40)
[2019-01-01] MEDS: PANTOPRAZOLE SODIUM 40 MG VIAL IVPUSH SCH (10:37)
[2019-01-01] MEDS: FLUTICASONE PROP 0.05% 16 GM NASAL SPRAY NS SCH (10:39)
[2019-01-01] MEDS: APIXABAN 5 MG TABLET PO SCH ×2 (10:43→22:03)
[2019-01-01 10:59] LABS: ANISOCYTOSIS 0; MACROCYTOSIS 0; PLATELET ESTIMATE NORMAL
--- NOTE | 2019-01-01 12:02 | PN ---
Progress Note (short form) - Note Progress Note: PULMONARY Denies shortness of breath or chest pain. Heart rates variable. Vital Signs Period Temp Pulse Resp BP Sys/Germain Pulse Ox Last 24 Hr 98 F-98.6 F 70-119 18-20 84-124/48-92 96-96 Gen: NAD at rest Heart: tachycardic Lung: decreased breath sounds at the bases Abd: soft, nontender Ext: no edema CBC, BMP 01/01/19 05:30 01/01/19 05:30 Active Medications Amoxicillin/Clavulanate Potassium (Augmentin - 875mg Tablet) 1 tab PO BID@0800, 1730 [facility] Last Admin: 01/01/19 10:37 Dose: 1 tab Apixaban (Eliquis -) 5 mg PO BID [facility] Last Admin: 01/01/19 10:43 Dose: 5 mg Diltiazem HCl (Cardizem -) 60 mg PO Q6HPO [facility] Last Admin: 01/01/19 06:13 Dose: 60 mg Diltiazem HCl (Cardizem Injection -) 10 mg IVPUSH Q4H PRN PRN Reason: TACHYCARDIA Fluticasone Propionate (Flonase -) 2 spray NS DAILY [facility] Last Admin: 01/01/19 10:39 Dose: 2 spray Ondansetron HCl (Zofran Injection) 4 mg IVPUSH Q6H PRN PRN Reason: NAUSEA Pantoprazole Sodium (Protonix Iv) 40 mg IVPUSH DAILY [facility] Last Admin: 01/01/19 10:37 Dose: 40 mg Potassium Phos/Sodium Phos (Phos-Nak Packet -) 1 packet PO TID [facility] Last Admin: 01/01/19 06:12 Dose: 1 packet Propranolol HCl (Inderal -) 60 mg PO Q6H [facility] Last Admin: 01/01/19 10:43 Dose: 60 mg Propranolol HCl (Inderal Injection -) 1 mg IVPUSH Q1H PRN PRN Reason: TACHYCARDIA A/P Large Bowel Obstruction/Ascending Colon Mass s/p ex-lap/right hemicolectomy/primary ileotransverse anastamosis Atrial Fibrillation/Flutter with RVR HTN GERD Dementia - pain control - incentive spirometry - rate control per cardiology - continue anticoagulation - for CTA chest, medically necessary to r/o PE and benefits of procedure outweigh the risks - PO as tolerated - on antibiotics per ID
--- NOTE | 2019-01-01 14:34 | PN ---
Progress Note, Physician History of Present Illness: feels a bit lousy tachy cardio on case plan for ct chest - Current Medication List Current Medications: Active Medications Amoxicillin/Clavulanate Potassium (Augmentin - 875mg Tablet) 1 tab PO BID@0800, 1730 [facility] Last Admin: 01/01/19 10:37 Dose: 1 tab Apixaban (Eliquis -) 5 mg PO BID [facility] Last Admin: 01/01/19 10:43 Dose: 5 mg Diltiazem HCl (Cardizem -) 60 mg PO Q6HPO [facility] Last Admin: 01/01/19 06:13 Dose: 60 mg Diltiazem HCl (Cardizem Injection -) 10 mg IVPUSH Q4H PRN PRN Reason: TACHYCARDIA Fluticasone Propionate (Flonase -) 2 spray NS DAILY [facility] Last Admin: 01/01/19 10:39 Dose: 2 spray Ondansetron HCl (Zofran Injection) 4 mg IVPUSH Q6H PRN PRN Reason: NAUSEA Pantoprazole Sodium (Protonix Iv) 40 mg IVPUSH DAILY [facility] Last Admin: 01/01/19 10:37 Dose: 40 mg Potassium Phos/Sodium Phos (Phos-Nak Packet -) 1 packet PO TID [facility] Last Admin: 01/01/19 06:12 Dose: 1 packet Propranolol HCl (Inderal -) 60 mg PO Q6H [facility] Last Admin: 01/01/19 10:43 Dose: 60 mg Propranolol HCl (Inderal Injection -) 1 mg IVPUSH Q1H PRN PRN Reason: TACHYCARDIA - Objective Vital Signs: Vital Signs Temperature 98.4 F 01/01/19 06:00 Pulse Rate 117 H 01/01/19 08:04 Respiratory Rate 19 01/01/19 08:04 Blood Pressure 124/86 01/01/19 08:04 O2 Sat by Pulse Oximetry (%) 96 12/31/18 20:00 Constitutional: Yes: Calm, Mild Distress Cardiovascular: Yes: Tachycardia, S1, S2 Respiratory: Yes: On Nasal O2, Poor Air Entry Gastrointestinal: Yes: Normal Bowel Sounds, Soft Musculoskeletal: Yes: WNL Extremities: Yes: WNL Neurological: Yes: Alert Psychiatric: Yes: Alert Labs: CBC, BMP 01/01/19 05:30 01/01/19 05:30 INR, PTT INR 1.13 (0.83-1.09) H 12/21/18 09:35 Assessment/Plan - Problems (1) Colon obstruction Code(s): K56.609 - UNSP INTESTNL OBST, UNSP TO PARTIAL VERSUS COMPLETE OBST (2) Atrial fibrillation with RVR Code(s): I48.91 - UNSPECIFIED ATRIAL FIBRILLATION (3) Dementia Code(s): F03.90 - UNSPECIFIED DEMENTIA WITHOUT BEHAVIORAL DISTURBANCE (4) Esophagitis Code(s): K20.9 - ESOPHAGITIS, UNSPECIFIED (5) GERD (gastroesophageal reflux disease) Code(s): K21.9 - GASTRO-ESOPHAGEAL REFLUX DISEASE WITHOUT ESOPHAGITIS (6) Hypertension Code(s): I10 - ESSENTIAL (PRIMARY) HYPERTENSION Qualifiers: Hypertension type: essential hypertension Qualified Code(s): I10 - Essential (primary) hypertension leukocytosis pleural effusion pe pleural effusion has increased plan continue abx monitor wbc plan for imaging studies abd is soft rest as per the team
[2019-01-02] MEDS: dilTIAZem HCL 60 MG TABLET (FP) PO SCH ×4 (00:26→18:29)
[2019-01-02] MEDS ORDERED: PT OWN MED DRAWER 7, Y5N ONE ×3 (03:05→11:09)
[2019-01-02] MEDS: NAPH,MB-DB/K PH,MBDB POWDER PACKET PO SCH ×3 (06:08→21:22)
[2019-01-02 06:16] LABS: BASO % 0.2 % (0-2.0); EOS % 0.6 % (0-4.5); HEMATOCRIT 29.7 % (32.4-45.2); HEMOGLOBIN 9.5 GM/dL (10.7-15.3); LYMPH % 9.9 % (8-40); MCH 24.3 pg (25.7-33.7); MCHC 31.9 g/dl (32.0-36.0); MEAN PLT VOLUME 7.7 fl (7.5-11.1); MONO % 7.3 % (3.8-10.2); PLATELET COUNT 520 K/MM3 (134-434); RBC 3.91 M/mm3 (3.60-5.2); RDW 18.9 % (11.6-15.6); WHITE BLOOD COUNT 14.4 K/mm3 (4.0-10.0)
[2019-01-02 06:45] LABS: ALBUMIN 1.7 g/dl (3.4-5.0); ALK PHOS 68 U/L (45-117); ANION GAP 6 MMOL/L (8-16); BILIRUBIN,TOTAL 0.3 mg/dL (0.2-1); CALCIUM 7.8 mg/dL (8.5-10.1); CHLORIDE 102 mmol/L (98-107); CO2 28 mmol/L (21-32); CREATININE 0.4 mg/dL (0.55-1.3); GLUCOSE,RANDOM 73 mg/dL (74-106); POTASSIUM 3.7 mmol/L (3.5-5.1); SGOT/AST 15 U/L (15-37); SGPT/ALT 13 U/L (13-61); SODIUM 136 mmol/L (136-145); TOT PROT 4.7 g/dl (6.4-8.2)
[2019-01-02 06:55] LABS: BLOOD UREA NITROGEN 2 mg/dL (7-18)
--- NOTE | 2019-01-02 09:21 | PN ---
Progress Note (short form) - Note Progress Note: s: no chest pain, palps, dizziness Current Medications Amoxicillin/Clavulanate Potassium (Augmentin - 875mg Tablet) 1 tab PO BID@0800, 1730 [facility] Last Admin: 01/01/19 17:40 Dose: 1 tab Apixaban (Eliquis -) 5 mg PO BID [facility] Last Admin: 01/01/19 22:03 Dose: 5 mg Diltiazem HCl (Cardizem -) 60 mg PO Q6HPO [facility] Last Admin: 01/02/19 06:08 Dose: 60 mg Diltiazem HCl (Cardizem Injection -) 10 mg IVPUSH Q4H PRN PRN Reason: TACHYCARDIA Fluticasone Propionate (Flonase -) 2 spray NS DAILY [facility] Last Admin: 01/01/19 10:39 Dose: 2 spray Ondansetron HCl (Zofran Injection) 4 mg IVPUSH Q6H PRN PRN Reason: NAUSEA Pantoprazole Sodium (Protonix Iv) 40 mg IVPUSH DAILY [facility] Last Admin: 01/01/19 10:37 Dose: 40 mg Potassium Phos/Sodium Phos (Phos-Nak Packet -) 1 packet PO TID [facility] Last Admin: 01/02/19 06:08 Dose: 1 packet Propranolol HCl (Inderal -) 60 mg PO Q6H [facility] Last Admin: 01/02/19 03:06 Dose: 60 mg Propranolol HCl (Inderal Injection -) 1 mg IVPUSH Q1H PRN PRN Reason: TACHYCARDIA - Objective Vital Signs Period Temp Pulse Resp BP Sys/Germain Pulse Ox Last 24 Hr 97.8 F-98.2 F 100-121 18-21 102-136/51-98 100-100 Constitutional: Yes: Well Nourished, No Distress, Calm Cardiovascular: Yes: Pulse Irregular, S1, S2. No: Gallop, Murmur Respiratory: Yes: Regular, CTA Bilaterally. No: Accessory Muscle Use, Rales, Wheezes Extremities: No: Cold Edema: No Neurological: Yes: Alert. No: Seizure Psychiatric: No: Agitated Assessment/Plan ecg: aflutter with 2:1 avb, vr 127, no ischemic changes CXR 12/28: slight incr bilat pulm/pleural changes Echo 12/2018: small LV cavity, hyperdynamic. mild-mod dilated RV, hyperdynamic RVSF. mild ERIK. mild-mod MR (eccentric). RVSP 30-35 CTA chest acute RLL PE, mod R and small left pleural effusions tele: AF/flutter, HRs good a/p: 83 f hx dementia, afib/flutter, gerd, htn, tia, [place] for coffee ground emesis. aflutter: - was on diltiazem 60 mg QID and propranolol 120 mg BID at home-->npo postop bowel surgery with tachycardia and hypotensive on levophed-->amio gtt started with persistent tachycardia. hemodynamics improved-->amio d/c'd, prn iv diltiazem ordered - 12/25: H?R 140s, no response to IV diltiazem pushes, SBP dropped to 80s. d/w'd icu team: will start non-chronotropic vasoconstrictor pressor, then initiate low dose PO and IV propranolol trial for HR control. - eliquis held briefly during 12/05 admit with GIB, resumed on discharge with plan for outpt GI scopes. H/H were stable when arrived this time with SBO, eliquis now on hold for surgery - 12/26: HR remains 130s, will increase propranolol to 60 mg QID (home dose is propranolol long acting 120 mg BID). If BP tolerates would restart PO diltiazem as well, at home was on 60 mg QID - 12/27: eliquis resumed, HR 130s. change eliquis to 5 mg BID dosing (age >80 however she is >60 kg and Cr <1.5, does not meet criteria for low dose and was on full dose prior). BP improved today, will restart diltiazem 60 mg Q6H 12/28: HR improved but still fast at times, cont same dilt/inderal for now as bp on low side and monitor on tele. -12/29-: rates good, BPs soft--same meds Pulmonary embolism, pleural effusions, acute diast CHF - pulm congestion on CXR after receiving IVF here - fluids off, was diuresed--appears euvolemic, clear lungs - echo with dilated RV (normal function), no signific pulm HTN per TR gradient measurable on that study. Pt at risk for PE given: (1) AC had been held here for several days preop/postop, (2) she has new dx of colon malignancy; (3) she is postop and bedbound. - LE venous dopplers no DVT - CTA chest acute RLL PE - on eliquis htn: -bb/ccb resumed--watch for low BPs sbo: -s/p surgery, found to have colon ca, onc following
--- NOTE | 2019-01-02 10:06 | PN ---
Physical Exam: SUBJECTIVE: Patient seen and examined at the bedside. she is awake, alert, episodes of confusion. in no acute distress. oob with PT but short of breath with exertion OBJECTIVE: Vital Signs Period Temp Pulse Resp BP Sys/Germain Pulse Ox Last 24 Hr 97.8 F-98.2 F 100-121 18-21 102-136/51-98 100-100 GENERAL: The patient is awake, alert, confused, in no acute distress HEAD: Normal with no signs of trauma. EYES: PERRL, extraocular movements intact, sclera anicteric, conjunctiva clear. No ptosis. ENT: Ears normal, nares patent, oropharynx clear without exudates, moist mucous membranes. NECK: Trachea midline, full range of motion, supple. LUNGS: diminished bilaterally, on 2 liters of supplemental oxygen HEART: sinus tachycardia ABDOMEN: abdominal brook intact EXTREMITIES: no edema. NEUROLOGICAL: Normal speech, lower ext weakness PSYCH: Normal mood, normal affect. Laboratory Results - last 24 hr 01/01/19 01/02/19 01/02/19 05:30 05:30 05:30 WBC 14.4 H RBC 3.91 Hgb 9.5 L Hct 29.7 L MCV 76.0 L MCH 24.3 L MCHC 31.9 L RDW 18.9 H Plt Count 520 H MPV 7.7 Absolute Neuts (auto) 11.8 H Neutrophils % 82.0 Neutrophils % (Manual) 70.4 Band Neutrophils % 0.0 Lymphocytes % 9.9 D Lymphocytes % (Manual) 18.4 D Monocytes % 7.3 Monocytes % (Manual) 5 Eosinophils % 0.6 Eosinophils % (Manual) 0.0 D Basophils % 0.2 Basophils % (Manual) 0.0 Myelocytes % (Man) 1 Promyelocytes % (Man) 0 Blast Cells % (Manual) 0 Nucleated RBC % 0 0 Metamyelocytes 0 D Hypochromia 1+ Platelet Estimate Normal Polychromasia 0 Poikilocytosis 0 Anisocytosis 0 Microcytosis 1+ Macrocytosis 0 Sodium 136 Potassium 3.7 Chloride 102 Carbon Dioxide 28 Anion Gap 6 L BUN 2 L* Creatinine 0.4 L Creat Clearance w eGFR 151.70 Random Glucose 73 L Calcium 7.8 L Total Bilirubin 0.3 AST 15 ALT 13 Alkaline Phosphatase 68 Total Protein 4.7 L Albumin 1.7 L Active Medications Generic Name Dose Route Start Last Admin Trade Name Freq PRN Reason Stop Dose Admin Amoxicillin/Clavulanate Potassium 1 tab 12/29/18 17:30 01/01/19 17:40 Augmentin - 875mg Tablet PO 1 tab BID@0800,1730 OBDULIO Administration Apixaban 5 mg 12/28/18 22:00 01/01/19 22:03 Eliquis - PO 5 mg BID OBDUL[facility] Administration Diltiazem HCl 60 mg 12/29/18 00:00 01/02/19 06:08 Cardizem - PO 60 mg Q6HPO [facility]BD[facility] Administration Diltiazem HCl 10 mg 12/28/18 20:38 Cardizem Injection - IVPUSH Q4H PRN TACHYCARDIA Fluticasone Propionate 2 spray 12/29/18 10:00 01/01/19 10:39 Flonase - NS 2 spray DAILY [facility]BD[facility] Administration Ondansetron HCl 4 mg 12/28/18 20:38 Zofran Injection IVPUSH Q6H PRN NAUSEA Pantoprazole Sodium 40 mg 12/29/18 10:00 01/01/19 10:37 Protonix Iv IVPUSH 40 mg DAILY [facility] Administration Potassium Phos/Sodium Phos 1 packet 12/28/18 14:00 01/02/19 06:08 Phos-Nak Packet - PO 1 packet TID OBDUL[facility] Administration Propranolol HCl 60 mg 12/28/18 22:00 01/02/19 03:06 Inderal - PO 60 mg Q6H [facility]BDUL[facility] Administration Propranolol HCl 1 mg 12/28/18 20:38 Inderal Injection - IVPUSH Q1H PRN TACHYCARDIA ASSESSMENT/PLAN: Patient is an 83 year old female with past medical history of reflux, esophagitis, dementia, hallucinations, ataxia, HTN, benign neoplasm of cerebral meninges, who presents to the emergency department via EMS from senior living due to nausea and vomiting. She was evaluated in the ED and was noted to be with afib with RVR . Patient is a poor historian and confused at baseline. She was mostly recently at [facility] between 12/13/2018 and 12/20/2018 for vomitus with coffee ground emesis. She is s/p EGD which was negative. A colonoscopy was not done secondary to electrolyte imbalance and persistent tachycardia. She was discharged and recommended to follow up with GI outpatient for a colonscopy. Imaging: Abdominal CT w/o contrast 12/21/18 shows diffuse to moderate marked dilatation of the small bowel including the terminal ileum with significant dilatation of the cecum and proximal ascending colon up to a point of transition seen in the proximal/mid ascending colon where there is suggestion of wall thickening and collapse of the rest of the colon consistent with obstruction. CTA 01/01/19: acute RLL PE, moderate right sided pleural effusion and small to moderate left sided pleural effusion have increased in size. GI: Acute bowel obstructions seen on Abd CT s/p exp lap for SBO found to have colon cancer, oncology following on clears ID: Septic shock, resolved Renal Low urine output, normal bun/creat cervantes removed. incontinent Cardiac Uncontrolled afib with RVR on propranolol bid, cardizem q q6 Hypertension. controlled. Pulmonary Pulmonary embolism per CTA On supplemental oxygen on Eliquis 5mg BID Pleural effusions small to moderate sized pleural effusions (moderate) have increased in size. on supplemental oxygen, short of breath with exertion. Pulmonary emboli On eliquis 5mg bid fen tolerating clears, advance per surgery Protonix prophy physical therapy SCDs and CHLOE stockings dnr/dni Visit type - Emergency Visit Emergency Visit: Yes ED Registration Date: 12/22/18 Care time: The patient presented to the Emergency Department on the above date and was hospitalized for further evaluation of their emergent condition. - New Patient This patient is new to me today: No - Critical Care Critical Care patient: Yes Total Critical Care Time (in minutes): 50 Critical Care Statement: The care of this patient involved high complexity decision making to prevent further life threatening deterioration of the patient 's condition and/or to evaluate & treat vital organ system(s) failure or risk of failure. - Discharge Referral Referred to [facility] Med [facility] No
[2019-01-02] MEDS ORDERED: FUROSEMIDE 40 MG/4 ML INJECTABLE VIAL IVPUSH ONE (10:39)
[2019-01-02] MEDS: APIXABAN 5 MG TABLET PO SCH ×2 (11:12→21:22)
[2019-01-02] MEDS: PANTOPRAZOLE SODIUM 40 MG VIAL IVPUSH SCH (11:12)
[2019-01-02] MEDS: AMOX TR/POT CLAV 875MG/125MG TABLETS (FP) PO SCH ×2 (11:13→18:29)
[2019-01-02] MEDS: FLUTICASONE PROP 0.05% 16 GM NASAL SPRAY NS SCH (11:13)
--- NOTE | 2019-01-02 11:29 | PN ---
Progress Note, Physician Chief Complaint: LBO History of Present Illness: 83 yo female PMH reflux, esophagitis, dementia, hallucinations, ataxia, HTN, benign neoplasm of cerebral meninges, who presents to the emergency department via EMS from half-way due to nausea and vomiting that started today. She has been stable since surgery. - Current Medication List Current Medications: Active Medications Amoxicillin/Clavulanate Potassium (Augmentin - 875mg Tablet) 1 tab PO BID@0800, 1730 [facility] Last Admin: 01/02/19 11:13 Dose: 1 tab Apixaban (Eliquis -) 5 mg PO BID [facility] Last Admin: 01/02/19 11:12 Dose: 5 mg Diltiazem HCl (Cardizem -) 60 mg PO Q6HPO [facility] Last Admin: 01/02/19 06:08 Dose: 60 mg Diltiazem HCl (Cardizem Injection -) 10 mg IVPUSH Q4H PRN PRN Reason: TACHYCARDIA Fluticasone Propionate (Flonase -) 2 spray NS DAILY [facility] Last Admin: 01/02/19 11:13 Dose: 2 spray Ondansetron HCl (Zofran Injection) 4 mg IVPUSH Q6H PRN PRN Reason: NAUSEA Pantoprazole Sodium (Protonix Iv) 40 mg IVPUSH DAILY [facility] Last Admin: 01/02/19 11:12 Dose: 40 mg Potassium Phos/Sodium Phos (Phos-Nak Packet -) 1 packet PO TID [facility] Last Admin: 01/02/19 06:08 Dose: 1 packet Propranolol HCl (Inderal -) 60 mg PO Q6H [facility] Last Admin: 01/02/19 11:17 Dose: 60 mg Propranolol HCl (Inderal Injection -) 1 mg IVPUSH Q1H PRN PRN Reason: TACHYCARDIA - Objective Vital Signs: Vital Signs Temperature 98.2 F 01/02/19 06:00 Pulse Rate 114 H 01/02/19 06:00 Respiratory Rate 18 01/02/19 06:00 Blood Pressure 114/85 01/02/19 06:00 O2 Sat by Pulse Oximetry (%) 100 01/01/19 19:46 Vital Signs Period Temp Pulse Resp BP Sys/Germian Pulse Ox Last 24 Hr 97.5 F-98.2 F 117-125 17-34 97-123/58-84 100-100 Intake & Output 01/02/19 01/03/19 01/03/19 23:59 07:59 15:59 Intake Total 50 Balance 50 Intake: Oral 50 Other: Voiding Method Incontinent # Unmeasured Voids Void 2 2 Bowel Movement No Yes Constitutional: Yes: Well Nourished, No Distress, Calm Eyes: Yes: Conjunctiva Clear, EOM Intact HENT: Yes: Atraumatic, Normocephalic Neck: Yes: Supple, Trachea Midline Cardiovascular: Yes: Regular Rate and Rhythm, S1, S2 Respiratory: Yes: Regular, CTA Bilaterally Gastrointestinal: Yes: Normal Bowel Sounds, Soft ...Rectal Exam: Yes: Deferred Genitourinary: No: CVA Tenderness - Left, CVA Tenderness - Right Breast(s): No: Breast Implants, Discharge from Nipple, Nipple Inversion Musculoskeletal: No: Muscle Weakness Extremities: No: Cool Edema: No Peripheral Pulses WNL: Yes Peripheral Pulses: Left Radial: 2+, Right Radial: 2+, Left Doralis Pedis: 2+, Right Dorsalis Pedis: 2+, Left Femoral: 2+, Right Femoral: 2+ Integumentary: No: Jaundice, Rash Wound/Incision: Yes: Clean/Dry, Well Approximated, Branden Intact, Open to air Neurological: Yes: Alert, Oriented Psychiatric: Yes: Alert, Oriented Labs: CBC, BMP 01/02/19 05:30 01/02/19 05:30 INR, PTT INR 1.13 (0.83-1.09) H 12/21/18 09:35 Problem List - Problems (1) Colon obstruction Assessment/Plan: 83[facility] discharge with feculent emesis and an identified large bowel obstruction suspicious for malignancy. this may be a missed diagnosis from previous admission. POD#8 s/p Right hemicolectomy for an obstructing colon mass Diet as tolerated IVF hydration IV antibiotics per ID trend labs Early mobilization OOB encourage IS ID consult for continued antibiotics This patient is critically ill. Time spent reviewing chart, examining patient, talking with providers and/or family and documentation is 35 minutes. Code(s): K56.609 - UNSP INTESTNL OBST, UNSP TO PARTIAL VERSUS COMPLETE OBST (2) Atrial fibrillation with RVR Code(s): I48.91 - UNSPECIFIED ATRIAL FIBRILLATION (3) Dementia Code(s): F03.90 - UNSPECIFIED DEMENTIA WITHOUT BEHAVIORAL DISTURBANCE (4) Esophagitis Code(s): K20.9 - ESOPHAGITIS, UNSPECIFIED (5) GERD (gastroesophageal reflux disease) Code(s): K21.9 - GASTRO-ESOPHAGEAL REFLUX DISEASE WITHOUT ESOPHAGITIS (6) Hypertension Code(s): I10 - ESSENTIAL (PRIMARY) HYPERTENSION Qualifiers: Hypertension type: essential hypertension Qualified Code(s): I10 - Essential (primary) hypertension
--- NOTE | 2019-01-02 12:44 | PN ---
Progress Note (short form) - Note Progress Note: PULMONARY Denies shortness of breath or chest pain. CTA chest showing RLL segmental PE. Vital Signs Period Temp Pulse Resp BP Sys/Germain Pulse Ox Last 24 Hr 97.8 F-98.2 F 100-121 18-21 102-136/51-98 100-100 Gen: NAD at rest Heart: tachycardic Lung: decreased breath sounds at the bases Abd: soft, nontender Ext: no edema CBC, BMP 01/02/19 05:30 01/02/19 05:30 Active Medications Amoxicillin/Clavulanate Potassium (Augmentin - 875mg Tablet) 1 tab PO BID@0800, 1730 [facility] Last Admin: 01/02/19 11:13 Dose: 1 tab Apixaban (Eliquis -) 5 mg PO BID [facility] Last Admin: 01/02/19 11:12 Dose: 5 mg Diltiazem HCl (Cardizem -) 60 mg PO Q6HPO [facility] Last Admin: 01/02/19 12:16 Dose: 60 mg Diltiazem HCl (Cardizem Injection -) 10 mg IVPUSH Q4H PRN PRN Reason: TACHYCARDIA Fluticasone Propionate (Flonase -) 2 spray NS DAILY [facility] Last Admin: 01/02/19 11:13 Dose: 2 spray Ondansetron HCl (Zofran Injection) 4 mg IVPUSH Q6H PRN PRN Reason: NAUSEA Pantoprazole Sodium (Protonix Iv) 40 mg IVPUSH DAILY [facility] Last Admin: 01/02/19 11:12 Dose: 40 mg Potassium Phos/Sodium Phos (Phos-Nak Packet -) 1 packet PO TID [facility] Last Admin: 01/02/19 06:08 Dose: 1 packet Propranolol HCl (Inderal -) 60 mg PO Q6H [facility] Last Admin: 01/02/19 11:17 Dose: 60 mg Propranolol HCl (Inderal Injection -) 1 mg IVPUSH Q1H PRN PRN Reason: TACHYCARDIA A/P Large Bowel Obstruction/Ascending Colon Mass Newly Diagnosed Colon Ca s/p ex-lap/right hemicolectomy/primary ileotransverse anastamosis Atrial Fibrillation/Flutter with RVR Acute RLL Pulmonary Embolism HTN GERD Dementia - pain control - incentive spirometry - rate control per cardiology - continue anticoagulation - PO as tolerated - on antibiotics per ID
--- NOTE | 2019-01-02 16:47 | PN ---
Progress Note, Physician History of Present Illness: stable no new issues ct chest findings noted - Current Medication List Current Medications: Active Medications Amoxicillin/Clavulanate Potassium (Augmentin - 875mg Tablet) 1 tab PO BID@0800, 1730 [facility] Last Admin: 01/02/19 11:13 Dose: 1 tab Apixaban (Eliquis -) 5 mg PO BID [facility] Last Admin: 01/02/19 11:12 Dose: 5 mg Diltiazem HCl (Cardizem -) 60 mg PO Q6HPO [facility] Last Admin: 01/02/19 12:16 Dose: 60 mg Diltiazem HCl (Cardizem Injection -) 10 mg IVPUSH Q4H PRN PRN Reason: TACHYCARDIA Fluticasone Propionate (Flonase -) 2 spray NS DAILY [facility] Last Admin: 01/02/19 11:13 Dose: 2 spray Ondansetron HCl (Zofran Injection) 4 mg IVPUSH Q6H PRN PRN Reason: NAUSEA Pantoprazole Sodium (Protonix Iv) 40 mg IVPUSH DAILY [facility] Last Admin: 01/02/19 11:12 Dose: 40 mg Potassium Phos/Sodium Phos (Phos-Nak Packet -) 1 packet PO TID [facility] Last Admin: 01/02/19 15:00 Dose: 1 packet Propranolol HCl (Inderal -) 60 mg PO Q6H [facility] Last Admin: 01/02/19 11:17 Dose: 60 mg Propranolol HCl (Inderal Injection -) 1 mg IVPUSH Q1H PRN PRN Reason: TACHYCARDIA - Objective Vital Signs: Vital Signs Temperature 98.2 F 01/02/19 06:00 Pulse Rate 114 H 01/02/19 06:00 Respiratory Rate 18 01/02/19 06:00 Blood Pressure 114/85 01/02/19 06:00 O2 Sat by Pulse Oximetry (%) 100 01/02/19 09:00 Constitutional: Yes: No Distress, Calm Cardiovascular: Yes: Tachycardia, S1, S2 Respiratory: Yes: Regular, CTA Bilaterally Gastrointestinal: Yes: Normal Bowel Sounds, Soft Musculoskeletal: Yes: WNL Extremities: Yes: WNL Neurological: Yes: Alert, Oriented Psychiatric: Yes: Alert, Oriented Labs: CBC, BMP 01/02/19 05:30 01/02/19 05:30 INR, PTT INR 1.13 (0.83-1.09) H 12/21/18 09:35 - ....Imaging Cat Scan: Report Reviewed, Image Reviewed Assessment/Plan - Problems (1) Colon obstruction Code(s): K56.609 - UNSP INTESTNL OBST, UNSP TO PARTIAL VERSUS COMPLETE OBST (2) Atrial fibrillation with RVR Code(s): I48.91 - UNSPECIFIED ATRIAL FIBRILLATION (3) Dementia Code(s): F03.90 - UNSPECIFIED DEMENTIA WITHOUT BEHAVIORAL DISTURBANCE (4) Esophagitis Code(s): K20.9 - ESOPHAGITIS, UNSPECIFIED (5) GERD (gastroesophageal reflux disease) Code(s): K21.9 - GASTRO-ESOPHAGEAL REFLUX DISEASE WITHOUT ESOPHAGITIS (6) Hypertension Code(s): I10 - ESSENTIAL (PRIMARY) HYPERTENSION Qualifiers: Hypertension type: essential hypertension Qualified Code(s): I10 - Essential (primary) hypertension leukocytosis pe plan continue oral abx can stop them after tomorrow resp support rest as per the teams monitor her PE
[2019-01-03 06:26] LABS: BASO % 0.3 % (0-2.0); EOS % 0.3 % (0-4.5); HEMATOCRIT 29.6 % (32.4-45.2); HEMOGLOBIN 9.5 GM/dL (10.7-15.3); LYMPH % 7.5 % (8-40); MCH 24.5 pg (25.7-33.7); MCHC 32.1 g/dl (32.0-36.0); MEAN CELL VOLUME 76.2 fl (80-96); MEAN PLT VOLUME 7.7 fl (7.5-11.1); MONO % 10.6 % (3.8-10.2); NEUT % 81.3 % (42.8-82.8); PLATELET COUNT 508 K/MM3 (134-434); RBC 3.89 M/mm3 (3.60-5.2); WHITE BLOOD COUNT 17.4 K/mm3 (4.0-10.0)
[2019-01-03] MEDS: dilTIAZem HCL 60 MG TABLET (FP) PO SCH ×6 (06:29→23:39)
[2019-01-03] MEDS: NAPH,MB-DB/K PH,MBDB POWDER PACKET PO SCH ×3 (06:29→21:29)
[2019-01-03 06:41] LABS: ALBUMIN 1.5 g/dl (3.4-5.0); ALK PHOS 70 U/L (45-117); ANION GAP 5 MMOL/L (8-16); BILIRUBIN,TOTAL 0.4 mg/dL (0.2-1); BLOOD UREA NITROGEN 3 mg/dL (7-18); CALCIUM 7.2 mg/dL (8.5-10.1); CHLORIDE 100 mmol/L (98-107); CO2 29 mmol/L (21-32); CREATININE 0.4 mg/dL (0.55-1.3); GLUCOSE,RANDOM 85 mg/dL (74-106); MAGNESIUM 1.2 mg/dL (1.8-2.4); POTASSIUM 3.4 mmol/L (3.5-5.1); SGOT/AST 14 U/L (15-37); SGPT/ALT 12 U/L (13-61); SODIUM 134 mmol/L (136-145); TOT PROT 4.4 g/dl (6.4-8.2)
[2019-01-03] MEDS: AMOX TR/POT CLAV 875MG/125MG TABLETS (FP) PO SCH (08:22)
[2019-01-03] MEDS ORDERED: MAGNESIUM SULF 50% (8.12 MEQ/2 ML-1 GM VIAL) IVPB ONE (08:24)
--- NOTE | 2019-01-03 09:22 | PN ---
Physical Exam: SUBJECTIVE: Patient seen and examined at the bedside. in no acute distress. on 2 liters of oxygen. confused at baseline. OBJECTIVE: moderate bilateral pleural effusions, pulmonary following advance diet? she is tolerating clears wbc bumped up to 17, no fevers HCP Shantell Cruz informed and updated of colon cancer status, PE and POC. HCP informed me that she will not seek chemotherapy for this patient at this time and is considering palliative/hospice care. Vital Signs Period Temp Pulse Resp BP Sys/Germain Pulse Ox Last 24 Hr 97.5 F-98.2 F 117-125 17-34 97-123/58-84 100-100 GENERAL: The patient is awake, alert, confused, in no acute distress HEAD: Normal with no signs of trauma. EYES: PERRL, extraocular movements intact, sclera anicteric, conjunctiva clear. No ptosis. ENT: Ears normal, nares patent, oropharynx clear without exudates, moist mucous membranes. NECK: Trachea midline, full range of motion, supple. LUNGS: diminished bilaterally, on 2 liters of supplemental oxygen HEART: sinus tachycardia @126s ABDOMEN: abdominal brook intact EXTREMITIES: no edema. NEUROLOGICAL: Normal speech, lower ext weakness PSYCH: Normal mood, normal affect. Laboratory Results - last 24 hr 01/03/19 01/03/19 05:30 05:30 WBC 17.4 H RBC 3.89 Hgb 9.5 L Hct 29.6 L MCV 76.2 L MCH 24.5 L MCHC 32.1 RDW 19.0 H Plt Count 508 H MPV 7.7 Absolute Neuts (auto) 14.1 H Neutrophils % 81.3 Lymphocytes % 7.5 L D Monocytes % 10.6 H Eosinophils % 0.3 Basophils % 0.3 Nucleated RBC % 0 Sodium 134 L Potassium 3.4 L Chloride 100 Carbon Dioxide 29 Anion Gap 5 L BUN 3 L Creatinine 0.4 L Creat Clearance w eGFR 151.70 Random Glucose 85 Calcium 7.2 L Magnesium 1.2 L Total Bilirubin 0.4 AST 14 L ALT 12 L Alkaline Phosphatase 70 Total Protein 4.4 L Albumin 1.5 L Active Medications Generic Name Dose Route Start Last Admin Trade Name Freq PRN Reason Stop Dose Admin Acetaminophen 650 mg 01/03/19 08:46 Tylenol - PO Q6H PRN PAIN LEVEL 1-5 Amoxicillin/Clavulanate Potassium 1 tab 12/29/18 17:30 01/03/19 08:22 Augmentin - 875mg Tablet PO 1 tab BID@0800,1730 [facility] Administration Apixaban 5 mg 12/28/18 22:00 01/02/19 21:22 Eliquis - PO 5 mg BID [facility] Administration Diltiazem HCl 60 mg 12/29/18 00:00 01/03/19 06:29 Cardizem - PO 60 mg Q6HPO [facility] Administration Diltiazem HCl 10 mg 12/28/18 20:38 Cardizem Injection - IVPUSH Q4H PRN TACHYCARDIA Fluticasone Propionate 2 spray 12/29/18 10:00 01/02/19 11:13 Flonase - NS 2 spray DAILY [facility] Administration Ondansetron HCl 4 mg 12/28/18 20:38 Zofran Injection IVPUSH Q6H PRN NAUSEA Pantoprazole Sodium 40 mg 12/29/18 10:00 01/02/19 11:12 Protonix Iv IVPUSH 40 mg DAILY [facility] Administration Potassium Phos/Sodium Phos 1 packet 12/28/18 14:00 01/03/19 06:29 Phos-Nak Packet - PO 1 packet TID [facility] Administration Propranolol HCl 60 mg 12/28/18 22:00 01/03/19 04:13 Inderal - PO 60 mg Q6H [facility] Administration Propranolol HCl 1 mg 12/28/18 20:38 Inderal Injection - IVPUSH Q1H PRN TACHYCARDIA ASSESSMENT/PLAN: Patient is an 83 year old female with past medical history of reflux, esophagitis, dementia, hallucinations, ataxia, HTN, benign neoplasm of cerebral meninges, who presents to the emergency department via EMS from group home due to nausea and vomiting. She was evaluated in the ED and was noted to be with afib with RVR . Patient is a poor historian and confused at baseline. She was mostly recently at [facility] between 12/13/2018 and 12/20/2018 for vomitus with coffee ground emesis. She is s/p EGD which was negative. A colonoscopy was not done secondary to electrolyte imbalance and persistent tachycardia. She was discharged and recommended to follow up with GI outpatient for a colonscopy. Imaging: Abdominal CT w/o contrast 12/21/18 shows diffuse to moderate marked dilatation of the small bowel including the terminal ileum with significant dilatation of the cecum and proximal ascending colon up to a point of transition seen in the proximal/mid ascending colon where there is suggestion of wall thickening and collapse of the rest of the colon consistent with obstruction. CTA 01/01/19: acute RLL PE, moderate right sided pleural effusion and small to moderate left sided pleural effusion have increased in size. GI: Acute bowel obstructions seen on Abd CT s/p exp lap for SBO found to have colon cancer, oncology following, notes reviewed on clears, advance per surgery ID: Septic shock, resolved WBC bumped up to 17, no fevers Renal Low urine output, normal bun/creat cervantes removed. incontinent Cardiac Uncontrolled afib with RVR on propranolol bid, cardizem q q6 Hypertension. controlled. Pulmonary Pulmonary embolism per CTA On supplemental oxygen on Eliquis 5mg BID Pleural effusions small to moderate sized pleural effusions (moderate) have increased in size. on supplemental oxygen, short of breath with exertion. Pulmonary emboli On eliquis 5mg bid fen tolerating clears, advance per surgery Protonix prophy physical therapy SCDs and CHLOE dykesings dnr/dni Visit type - Emergency Visit Emergency Visit: Yes ED Registration Date: 12/22/18 Care time: The patient presented to the Emergency Department on the above date and was hospitalized for further evaluation of their emergent condition. - New Patient This patient is new to me today: No - Critical Care Critical Care patient: No - Discharge Referral Referred to [facility] Med P.C.: No
--- NOTE | 2019-01-03 09:29 | PN ---
Progress Note (short form) - Note Progress Note: s: no chest pain, palps, dizziness Current Medications Acetaminophen (Tylenol -) 650 mg PO Q6H PRN PRN Reason: PAIN LEVEL 1-5 Amoxicillin/Clavulanate Potassium (Augmentin - 875mg Tablet) 1 tab PO BID@0800, 1730 [facility] Last Admin: 01/03/19 08:22 Dose: 1 tab Apixaban (Eliquis -) 5 mg PO BID [facility] Last Admin: 01/02/19 21:22 Dose: 5 mg Diltiazem HCl (Cardizem -) 60 mg PO Q6HPO [facility] Last Admin: 01/03/19 06:29 Dose: 60 mg Diltiazem HCl (Cardizem Injection -) 10 mg IVPUSH Q4H PRN PRN Reason: TACHYCARDIA Fluticasone Propionate (Flonase -) 2 spray NS DAILY [facility] Last Admin: 01/02/19 11:13 Dose: 2 spray Ondansetron HCl (Zofran Injection) 4 mg IVPUSH Q6H PRN PRN Reason: NAUSEA Pantoprazole Sodium (Protonix Iv) 40 mg IVPUSH DAILY [facility] Last Admin: 01/02/19 11:12 Dose: 40 mg Potassium Phos/Sodium Phos (Phos-Nak Packet -) 1 packet PO TID [facility] Last Admin: 01/03/19 06:29 Dose: 1 packet Propranolol HCl (Inderal -) 60 mg PO Q6H [facility] Last Admin: 01/03/19 04:13 Dose: 60 mg Propranolol HCl (Inderal Injection -) 1 mg IVPUSH Q1H PRN PRN Reason: TACHYCARDIA - Objective Vital Signs Period Temp Pulse Resp BP Sys/Germain Pulse Ox Last 24 Hr 97.5 F-98.2 F 117-125 17-34 97-123/58-84 100-100 Constitutional: Yes: Well Nourished, No Distress, Calm Cardiovascular: Yes: Pulse Irregular, S1, S2. No: Gallop, Murmur Respiratory: Yes: Regular, CTA Bilaterally. No: Accessory Muscle Use, Rales, Wheezes Extremities: No: Cold Edema: No Neurological: Yes: Alert. No: Seizure Psychiatric: No: Agitated Assessment/Plan ecg: aflutter with 2:1 avb, vr 127, no ischemic changes CXR 12/28: slight incr bilat pulm/pleural changes Echo 12/2018: small LV cavity, hyperdynamic. mild-mod dilated RV, hyperdynamic RVSF. mild ERIK. mild-mod MR (eccentric). RVSP 30-35 CTA chest acute RLL PE, mod R and small left pleural effusions tele: AF/flutter, rate controlled with occasional RVR a/p: 83 f hx dementia, afib/flutter, gerd, htn, tia, sent from [place] for coffee ground emesis. aflutter: - was on diltiazem 60 mg QID and propranolol 120 mg BID at home-->npo postop bowel surgery with tachycardia and hypotensive on levophed-->amio gtt started with persistent tachycardia. hemodynamics improved-->amio d/c'd, prn iv diltiazem ordered - 12/25: H?R 140s, no response to IV diltiazem pushes, SBP dropped to 80s. d/w'd icu team: will start non-chronotropic vasoconstrictor pressor, then initiate low dose PO and IV propranolol trial for HR control. - eliquis held briefly during 12/05 admit with GIB, resumed on discharge with plan for outpt GI scopes. H/H were stable when arrived this time with SBO, eliquis now on hold for surgery - 12/26: HR remains 130s, will increase propranolol to 60 mg QID (home dose is propranolol long acting 120 mg BID). If BP tolerates would restart PO diltiazem as well, at home was on 60 mg QID - 12/27: eliquis resumed, HR 130s. change eliquis to 5 mg BID dosing (age >80 however she is >60 kg and Cr <1.5, does not meet criteria for low dose and was on full dose prior). BP improved today, will restart diltiazem 60 mg Q6H 12/28: HR improved but still fast at times, cont same dilt/inderal for now as bp on low side and monitor on tele. -12/29-: rates good, BPs soft--same meds Pulmonary embolism, pleural effusions, acute diast CHF - pulm congestion on CXR after receiving IVF here, was diuresed - echo with dilated RV (normal function), no signific pulm HTN per TR gradient measurable on that study. Pt at risk for PE given: (1) AC had been held here for several days preop/postop, (2) she has new dx of colon malignancy; (3) she is postop and bedbound. - LE venous dopplers no DVT - CTA chest acute RLL PE - on eliquis - betzy pleural effusions on CTA 01/02- lasix 40 mg IV, will give additional lasix dose today htn: -bb/ccb resumed--watch for low BPs sbo: -s/p surgery, found to have colon ca, onc following
[2019-01-03] MEDS: PANTOPRAZOLE SODIUM 40 MG VIAL IVPUSH SCH (10:00)
[2019-01-03] MEDS: APIXABAN 5 MG TABLET PO SCH ×2 (10:01→21:29)
[2019-01-03] MEDS: FLUTICASONE PROP 0.05% 16 GM NASAL SPRAY NS SCH (10:13)
--- NOTE | 2019-01-03 10:35 | PN ---
Progress Note, Physician Chief Complaint: LBO History of Present Illness: 83 yo female PMH reflux, esophagitis, dementia, hallucinations, ataxia, HTN, benign neoplasm of cerebral meninges, who presents to the emergency department via EMS from care home due to nausea and vomiting that started today. She has been stable since surgery. - Current Medication List Current Medications: Active Medications Acetaminophen (Tylenol -) 650 mg PO Q6H PRN PRN Reason: PAIN LEVEL 1-5 Amoxicillin/Clavulanate Potassium (Augmentin - 875mg Tablet) 1 tab PO BID@0800, 1730 [facility] Last Admin: 01/03/19 08:22 Dose: 1 tab Apixaban (Eliquis -) 5 mg PO BID [facility] Last Admin: 01/03/19 10:01 Dose: 5 mg Diltiazem HCl (Cardizem -) 60 mg PO Q6HPO [facility] Last Admin: 01/03/19 06:29 Dose: 60 mg Diltiazem HCl (Cardizem Injection -) 10 mg IVPUSH Q4H PRN PRN Reason: TACHYCARDIA Fluticasone Propionate (Flonase -) 2 spray NS DAILY [facility] Last Admin: 01/03/19 10:13 Dose: 2 spray Ondansetron HCl (Zofran Injection) 4 mg IVPUSH Q6H PRN PRN Reason: NAUSEA Pantoprazole Sodium (Protonix Iv) 40 mg IVPUSH DAILY [facility] Last Admin: 01/03/19 10:00 Dose: 40 mg Potassium Phos/Sodium Phos (Phos-Nak Packet -) 1 packet PO TID [facility] Last Admin: 01/03/19 06:29 Dose: 1 packet Propranolol HCl (Inderal -) 60 mg PO Q6H [facility] Last Admin: 01/03/19 10:01 Dose: 60 mg Propranolol HCl (Inderal Injection -) 1 mg IVPUSH Q1H PRN PRN Reason: TACHYCARDIA - Objective Vital Signs: Vital Signs Temperature 98.1 F 01/03/19 06:00 Pulse Rate 118 H 01/03/19 06:00 Respiratory Rate 18 01/03/19 06:00 Blood Pressure 97/66 01/03/19 06:00 O2 Sat by Pulse Oximetry (%) 100 01/03/19 07:19 Constitutional: Yes: No Distress, Calm, Thin Eyes: Yes: Conjunctiva Clear, EOM Intact HENT: Yes: Atraumatic, Normocephalic Neck: Yes: Supple, Trachea Midline Cardiovascular: Yes: Regular Rate and Rhythm, S1, S2 Respiratory: Yes: Regular, CTA Bilaterally Gastrointestinal: Yes: Normal Bowel Sounds, Soft. No: Tenderness ...Rectal Exam: Yes: Deferred Genitourinary: No: CVA Tenderness - Left, CVA Tenderness - Right Breast(s): No: Discharge from Nipple, Nipple Inversion, Skin Changes Musculoskeletal: No: Muscle Pain, Muscle Weakness Extremities: No: Cool, Cyanosis Edema: No Peripheral Pulses WNL: Yes Peripheral Pulses: Left Radial: 2+, Right Radial: 2+, Left Doralis Pedis: 2+, Right Dorsalis Pedis: 2+, Left Femoral: 2+, Right Femoral: 2+ Wound/Incision: Yes: Clean/Dry, Well Approximated, Sutures Intact, Open to air Neurological: Yes: Alert, Oriented Psychiatric: Yes: Alert, Oriented Labs: CBC, BMP 01/03/19 05:30 01/03/19 05:30 INR, PTT INR 1.13 (0.83-1.09) H 12/21/18 09:35 Problem List - Problems (1) Colon obstruction Assessment/Plan: 83yo female returned from [place] the next morning after discharge with feculent emesis and an identified large bowel obstruction suspicious for malignancy. this may be a missed diagnosis from previous admission. POD#10 s/p Right hemicolectomy for an obstructing colon mass Diet as tolerated IVF hydration IV antibiotics per ID trend labs Early mobilization OOB encourage IS ID consult for continued antibiotics This patient is critically ill. Time spent reviewing chart, examining patient, talking with providers and/or family and documentation is 35 minutes. Code(s): K56.609 - UNSP INTESTNL OBST, UNSP TO PARTIAL VERSUS COMPLETE OBST (2) Atrial fibrillation with RVR Code(s): I48.91 - UNSPECIFIED ATRIAL FIBRILLATION (3) Dementia Code(s): F03.90 - UNSPECIFIED DEMENTIA WITHOUT BEHAVIORAL DISTURBANCE (4) Esophagitis Code(s): K20.9 - ESOPHAGITIS, UNSPECIFIED (5) GERD (gastroesophageal reflux disease) Code(s): K21.9 - GASTRO-ESOPHAGEAL REFLUX DISEASE WITHOUT ESOPHAGITIS (6) Hypertension Code(s): I10 - ESSENTIAL (PRIMARY) HYPERTENSION Qualifiers: Hypertension type: essential hypertension Qualified Code(s): I10 - Essential (primary) hypertension
[2019-01-03] MEDS ORDERED: FUROSEMIDE 40 MG/4 ML INJECTABLE VIAL IVPUSH ONE (10:47)
--- NOTE | 2019-01-03 13:23 | PN ---
Progress Note (short form) - Note Progress Note: PULMONARY Denies shortness of breath or chest pain. CTA chest showing RLL segmental PE. Vital Signs Period Temp Pulse Resp BP Sys/Germain Pulse Ox Last 24 Hr 97.5 F-98.2 F 107-125 18-34 97-123/58-84 100-100 Gen: NAD at rest Heart: tachycardic Lung: decreased breath sounds at the bases Abd: soft, nontender Ext: no edema CBC, BMP 01/03/19 05:30 01/03/19 05:30 Active Medications Acetaminophen (Tylenol -) 650 mg PO Q6H PRN PRN Reason: PAIN LEVEL 1-5 Amoxicillin/Clavulanate Potassium (Augmentin - 875mg Tablet) 1 tab PO BID@0800, 1730 [facility] Last Admin: 01/03/19 08:22 Dose: 1 tab Apixaban (Eliquis -) 5 mg PO BID [facility] Last Admin: 01/03/19 10:01 Dose: 5 mg Diltiazem HCl (Cardizem -) 60 mg PO Q6HPO [facility] Last Admin: 01/03/19 11:05 Dose: 60 mg Diltiazem HCl (Cardizem Injection -) 10 mg IVPUSH Q4H PRN PRN Reason: TACHYCARDIA Fluticasone Propionate (Flonase -) 2 spray NS DAILY [facility] Last Admin: 01/03/19 10:13 Dose: 2 spray Ondansetron HCl (Zofran Injection) 4 mg IVPUSH Q6H PRN PRN Reason: NAUSEA Pantoprazole Sodium (Protonix Iv) 40 mg IVPUSH DAILY [facility] Last Admin: 01/03/19 10:00 Dose: 40 mg Potassium Phos/Sodium Phos (Phos-Nak Packet -) 1 packet PO TID [facility] Last Admin: 01/03/19 06:29 Dose: 1 packet Propranolol HCl (Inderal -) 60 mg PO Q6H [facility] Last Admin: 01/03/19 10:01 Dose: 60 mg Propranolol HCl (Inderal Injection -) 1 mg IVPUSH Q1H PRN PRN Reason: TACHYCARDIA A/P Large Bowel Obstruction/Ascending Colon Mass Newly Diagnosed Colon Ca s/p ex-lap/right hemicolectomy/primary ileotransverse anastamosis Atrial Fibrillation/Flutter with RVR Acute RLL Pulmonary Embolism HTN GERD Dementia - pain control - incentive spirometry - rate control per cardiology - continue anticoagulation - PO as tolerated - on antibiotics per ID
--- NOTE | 2019-01-03 15:19 | PN ---
Progress Note, Physician History of Present Illness: Denies shortness of breath or chest pain. CTA chest showing RLL segmental PE. comfortable - Current Medication List Current Medications: Active Medications Acetaminophen (Tylenol -) 650 mg PO Q6H PRN PRN Reason: PAIN LEVEL 1-5 Amoxicillin/Clavulanate Potassium (Augmentin - 875mg Tablet) 1 tab PO BID@0800, 1730 [facility] Last Admin: 01/03/19 08:22 Dose: 1 tab Apixaban (Eliquis -) 5 mg PO BID [facility] Last Admin: 01/03/19 10:01 Dose: 5 mg Diltiazem HCl (Cardizem -) 60 mg PO Q6HPO [facility] Last Admin: 01/03/19 11:05 Dose: 60 mg Diltiazem HCl (Cardizem Injection -) 10 mg IVPUSH Q4H PRN PRN Reason: TACHYCARDIA Fluticasone Propionate (Flonase -) 2 spray NS DAILY [facility] Last Admin: 01/03/19 10:13 Dose: 2 spray Ondansetron HCl (Zofran Injection) 4 mg IVPUSH Q6H PRN PRN Reason: NAUSEA Pantoprazole Sodium (Protonix Iv) 40 mg IVPUSH DAILY [facility] Last Admin: 01/03/19 10:00 Dose: 40 mg Potassium Phos/Sodium Phos (Phos-Nak Packet -) 1 packet PO TID [facility] Last Admin: 01/03/19 06:29 Dose: 1 packet Propranolol HCl (Inderal -) 60 mg PO Q6H [facility] Last Admin: 01/03/19 10:01 Dose: 60 mg Propranolol HCl (Inderal Injection -) 1 mg IVPUSH Q1H PRN PRN Reason: TACHYCARDIA - Objective Vital Signs: Vital Signs Temperature 98.2 F 01/03/19 10:00 Pulse Rate 130 H 01/03/19 14:00 Respiratory Rate 23 H 01/03/19 14:00 Blood Pressure 108/59 L 01/03/19 14:00 O2 Sat by Pulse Oximetry (%) 100 01/03/19 09:00 Constitutional: Yes: No Distress, Calm Cardiovascular: Yes: S1, S2 Respiratory: Yes: Poor Air Entry (bases,) Gastrointestinal: Yes: Normal Bowel Sounds, Soft Musculoskeletal: Yes: WNL Extremities: Yes: WNL Neurological: Yes: Alert Psychiatric: Yes: Alert Labs: CBC, BMP 01/03/19 05:30 01/03/19 05:30 INR, PTT INR 1.13 (0.83-1.09) H 12/21/18 09:35 Assessment/Plan - Problems (1) Colon obstruction Code(s): K56.609 - UNSP INTESTNL OBST, UNSP TO PARTIAL VERSUS COMPLETE OBST (2) Atrial fibrillation with RVR Code(s): I48.91 - UNSPECIFIED ATRIAL FIBRILLATION (3) Dementia Code(s): F03.90 - UNSPECIFIED DEMENTIA WITHOUT BEHAVIORAL DISTURBANCE (4) Esophagitis Code(s): K20.9 - ESOPHAGITIS, UNSPECIFIED (5) GERD (gastroesophageal reflux disease) Code(s): K21.9 - GASTRO-ESOPHAGEAL REFLUX DISEASE WITHOUT ESOPHAGITIS (6) Hypertension Code(s): I10 - ESSENTIAL (PRIMARY) HYPERTENSION Qualifiers: Hypertension type: essential hypertension Qualified Code(s): I10 - Essential (primary) hypertension leukocytosis pleural effusion pe pleural effusion has increased plan continue abx monitor wbc ct scan noted incentive marialuisa cardio on case rest as per the team
[2019-01-03] MEDS ORDERED: PT OWN MED DRAWER 7, Y5N ONE ×2 (16:56→21:15)
[2019-01-03] MEDS: MAGNESIUM OXIDE 400 MG TABLET (FP) PO SCH (21:28)
[2019-01-04] MEDS ORDERED: PT OWN MED DRAWER 7, Y5N ONE ×4 (03:54→20:32)
[2019-01-04] MEDS: NAPH,MB-DB/K PH,MBDB POWDER PACKET PO SCH ×3 (06:10→21:12)
[2019-01-04] MEDS: dilTIAZem HCL 60 MG TABLET (FP) PO SCH ×3 (06:10→17:03)
[2019-01-04] MEDS: MAGNESIUM OXIDE 400 MG TABLET (FP) PO SCH ×2 (09:19→21:10)
[2019-01-04] MEDS: PANTOPRAZOLE SODIUM 40 MG VIAL IVPUSH SCH (09:19)
[2019-01-04] MEDS: APIXABAN 5 MG TABLET PO SCH ×2 (09:19→21:13)
[2019-01-04] MEDS: FLUTICASONE PROP 0.05% 16 GM NASAL SPRAY NS SCH (09:23)
--- NOTE | 2019-01-04 09:34 | PN ---
Physical Exam: SUBJECTIVE: Patient seen and examined on tele. awake, alert. in no acute distress. denies any discomfort. OBJECTIVE: awaiting today's labs Vital Signs Period Temp Pulse Resp BP Sys/Germain Pulse Ox Last 24 Hr 98.2 F-98.6 F 107-130 18-26 93-115/54-63 99-100 GENERAL: The patient is awake, alert, confused, in no acute distress HEAD: Normal with no signs of trauma. EYES: PERRL, extraocular movements intact, sclera anicteric, conjunctiva clear. No ptosis. ENT: Ears normal, nares patent, oropharynx clear without exudates, moist mucous membranes. NECK: Trachea midline, full range of motion, supple. LUNGS: diminished bilaterally, on 2 liters of supplemental oxygen HEART: sinus tachycardia @126s ABDOMEN: abdominal brook intact, without drainage or redness EXTREMITIES: no edema. NEUROLOGICAL: Normal speech, lower ext weakness PSYCH: Normal mood, normal affect. Active Medications Generic Name Dose Route Start Last Admin Trade Name Freq PRN Reason Stop Dose Admin Acetaminophen 650 mg 01/03/19 08:46 Tylenol - PO Q6H PRN PAIN LEVEL 1-5 Apixaban 5 mg 12/28/18 22:00 01/04/19 09:19 Eliquis - PO 5 mg BID OBDULIO Administration Diltiazem HCl 60 mg 12/29/18 00:00 01/04/19 06:10 Cardizem - PO 60 mg Q6HPO OBDULIO Administration Diltiazem HCl 10 mg 12/28/18 20:38 Cardizem Injection - IVPUSH Q4H PRN TACHYCARDIA Fluticasone Propionate 2 spray 12/29/18 10:00 01/04/19 09:23 Flonase - NS 2 spray DAILY OBDULIO Administration Magnesium Oxide 400 mg 01/03/19 22:00 01/04/19 09:19 Mag-Ox - PO 400 mg BID OBDULIO Administration Ondansetron HCl 4 mg 12/28/18 20:38 Zofran Injection IVPUSH Q6H PRN NAUSEA Pantoprazole Sodium 40 mg 12/29/18 10:00 01/04/19 09:19 Protonix Iv IVPUSH 40 mg DAILY OBDULIO Administration Potassium Phos/Sodium Phos 1 packet 12/28/18 14:00 01/04/19 06:10 Phos-Nak Packet - PO 1 packet TID OBDULIO Administration Propranolol HCl 60 mg 12/28/18 22:00 01/04/19 09:20 Inderal - PO 60 mg Q6H OBDULIO Administration Propranolol HCl 1 mg 12/28/18 20:38 Inderal Injection - IVPUSH Q1H PRN TACHYCARDIA ASSESSMENT/PLAN: Patient is an 83 year old female with past medical history of reflux, esophagitis, dementia, hallucinations, ataxia, HTN, benign neoplasm of cerebral meninges, who presents to the emergency department via EMS from [facility] due to nausea and vomiting. She was evaluated in the ED and was noted to be with afib with RVR . Patient is a poor historian and confused at baseline. She was mostly recently at [facility] between 12/13/2018 and 12/20/2018 for vomitus with coffee ground emesis. She is s/p EGD which was negative. A colonoscopy was not done secondary to electrolyte imbalance and persistent tachycardia. She was discharged and recommended to follow up with GI outpatient for a colonscopy , however she returned to the ED on the next day for worsening abdominal symptoms. Imaging: Abdominal CT w/o contrast 12/21/18 shows diffuse to moderate marked dilatation of the small bowel including the terminal ileum with significant dilatation of the cecum and proximal ascending colon up to a point of transition seen in the proximal/mid ascending colon where there is suggestion of wall thickening and collapse of the rest of the colon consistent with obstruction. CTA 01/01/19: acute RLL PE, moderate right sided pleural effusion and small to moderate left sided pleural effusion have increased in size. GI: Acute bowel obstructions seen on Abd CT s/p exp lap for SBO found to have colon cancer, new diagnosis. oncology following, notes reviewed on clears, advance per surgery GOC to be discussed with both HCPs. ID: Septic shock, resolved WBC bumped up to 17, no fevers. ID following. Cardiac Uncontrolled afib with RVR on propranolol q6, cardizem q q6 Hypertension. controlled. Pulmonary Pulmonary embolism per CTA On supplemental oxygen on Eliquis 5mg BID Pleural effusions small to moderate sized pleural effusions have increased in size. on supplemental oxygen, short of breath with minimal exertion. Pulmonary emboli On eliquis 5mg bid fen tolerating clears, advance per surgery Protonix prophy physical therapy SCDs and CHLOE stockings dnr/dni Visit type - Emergency Visit Emergency Visit: Yes ED Registration Date: 12/22/18 Care time: The patient presented to the Emergency Department on the above date and was hospitalized for further evaluation of their emergent condition. - New Patient This patient is new to me today: No - Critical Care Critical Care patient: No - Discharge Referral Referred to [facility] Med P.C.: No
--- NOTE | 2019-01-04 10:24 | PN ---
Progress Note (short form) - Note Progress Note: s: no cp sob palps dizzy o: Vital Signs Period Temp Pulse Resp BP Sys/Germain Pulse Ox Last 24 Hr 98.2 F-98.6 F 110-130 18-26 93-115/54-63 99-100 nad, no jvd irreg s1s2 no mrg cta bl nl eff awake, alert no jaundice diaphoresis no le e/c/c abd nt nd pos bs Current Medications Generic Name Dose Route Start Last Admin Trade Name Freq PRN Reason Stop Dose Admin Acetaminophen 650 mg 01/03/19 08:46 Tylenol - PO Q6H PRN PAIN LEVEL 1-5 Apixaban 5 mg 12/28/18 22:00 01/04/19 09:19 Eliquis - PO 5 mg BID OBD[facility] Administration Diltiazem HCl 60 mg 12/29/18 00:00 01/04/19 06:10 Cardizem - PO 60 mg Q6HPO OBD[facility]IO Administration Diltiazem HCl 10 mg 12/28/18 20:38 Cardizem Injection - IVPUSH Q4H PRN TACHYCARDIA Fluticasone Propionate 2 spray 12/29/18 10:00 01/04/19 09:23 Flonase - NS 2 spray DAILY [facility] Administration Magnesium Oxide 400 mg 01/03/19 22:00 01/04/19 09:19 Mag-Ox - PO 400 mg BID OBD[facility] Administration Ondansetron HCl 4 mg 12/28/18 20:38 Zofran Injection IVPUSH Q6H PRN NAUSEA Pantoprazole Sodium 40 mg 12/29/18 10:00 01/04/19 09:19 Protonix Iv IVPUSH 40 mg DAILY [facility] Administration Potassium Phos/Sodium Phos 1 packet 12/28/18 14:00 01/04/19 06:10 Phos-Nak Packet - PO 1 packet TID OBD[facility]IO Administration Propranolol HCl 60 mg 12/28/18 22:00 01/04/19 09:20 Inderal - PO 60 mg Q6H OBDULIO Administration Propranolol HCl 1 mg 12/28/18 20:38 Inderal Injection - IVPUSH Q1H PRN TACHYCARDIA CBC, BMP 01/03/19 05:30 01/03/19 05:30 ecg: aflutter with 2:1 avb, vr 127, no ischemic changes CXR 12/28: slight incr bilat pulm/pleural changes Echo 12/2018: small LV cavity, hyperdynamic. mild-mod dilated RV, hyperdynamic RVSF. mild ERIK. mild-mod MR (eccentric). RVSP 30-35 CTA chest acute RLL PE, mod R and small left pleural effusions tele: AF/flutter, 120s a/p: 83 f hx dementia, afib/flutter, gerd, htn, tia, sent from [facility] for coffee ground emesis. aflutter: - was on diltiazem 60 mg QID and propranolol 120 mg BID at home-->npo postop bowel surgery with tachycardia and hypotensive on levophed-->amio gtt started with persistent tachycardia. hemodynamics improved-->amio d/c'd, prn iv diltiazem ordered - 12/25: H?R 140s, no response to IV diltiazem pushes, SBP dropped to 80s. d/w'd icu team: will start non-chronotropic vasoconstrictor pressor, then initiate low dose PO and IV propranolol trial for HR control. - eliquis held briefly during 12/05 admit with GIB, resumed on discharge with plan for outpt GI scopes. H/H were stable when arrived this time with SBO, eliquis now on hold for surgery - 12/26: HR remains 130s, will increase propranolol to 60 mg QID (home dose is propranolol long acting 120 mg BID). If BP tolerates would restart PO diltiazem as well, at home was on 60 mg QID - 12/27: eliquis resumed, HR 130s. change eliquis to 5 mg BID dosing (age >80 however she is >60 kg and Cr <1.5, does not meet criteria for low dose and was on full dose prior). BP improved today, will restart diltiazem 60 mg Q6H 12/28: HR improved but still fast at times, cont same dilt/inderal for now as bp on low side and monitor on tele. -12/29-: rates good, BPs soft--same meds -01/04: rvr to 120s at times, pt tolerating and bp low side so cont same rate meds for now Pulmonary embolism, pleural effusions, acute diast CHF - pulm congestion on CXR after receiving IVF here, was diuresed - echo with dilated RV (normal function), no signific pulm HTN per TR gradient measurable on that study. Pt at risk for PE given: (1) AC had been held here for several days preop/postop, (2) she has new dx of colon malignancy; (3) she is postop and bedbound. - LE venous dopplers no DVT - CTA chest acute RLL PE - on eliquis - betzy pleural effusions on CTA 01/02- has been getting prn iv lasix. htn: -bb/ccb resumed for rate control sbo: -s/p surgery, found to have colon ca, onc following
[2019-01-04 13:03] LABS: BASO % 0.2 % (0-2.0); EOS % 0.1 % (0-4.5); HEMATOCRIT 28.8 % (32.4-45.2); HEMOGLOBIN 9.2 GM/dL (10.7-15.3); LYMPH % 5.2 % (8-40); MCH 24.2 pg (25.7-33.7); MEAN CELL VOLUME 75.8 fl (80-96); MEAN PLT VOLUME 7.7 fl (7.5-11.1); MONO % 10.1 % (3.8-10.2); NEUT % 84.4 % (42.8-82.8); PLATELET COUNT 473 K/MM3 (134-434); RDW 18.8 % (11.6-15.6); WHITE BLOOD COUNT 17.7 K/mm3 (4.0-10.0)
--- NOTE | 2019-01-04 13:26 | PN ---
Progress Note (short form) - Note Progress Note: PULMONARY Denies shortness of breath or chest pain. Heart rates variable. Vital Signs Period Temp Pulse Resp BP Sys/Germain Pulse Ox Last 24 Hr 98.2 F-98.6 F 110-130 18-26 93-115/54-63 99-100 Gen: NAD at rest Heart: tachycardic Lung: decreased breath sounds at the bases Abd: soft, nontender Ext: no edema CBC, BMP 01/04/19 12:33 Active Medications Acetaminophen (Tylenol -) 650 mg PO Q6H PRN PRN Reason: PAIN LEVEL 1-5 Apixaban (Eliquis -) 5 mg PO BID [facility] Last Admin: 01/04/19 09:19 Dose: 5 mg Diltiazem HCl (Cardizem -) 60 mg PO Q6HPO [facility] Last Admin: 01/04/19 12:03 Dose: 60 mg Diltiazem HCl (Cardizem Injection -) 10 mg IVPUSH Q4H PRN PRN Reason: TACHYCARDIA Fluticasone Propionate (Flonase -) 2 spray NS DAILY [facility] Last Admin: 01/04/19 09:23 Dose: 2 spray Magnesium Oxide (Mag-Ox -) 400 mg PO BID [facility] Last Admin: 01/04/19 09:19 Dose: 400 mg Ondansetron HCl (Zofran Injection) 4 mg IVPUSH Q6H PRN PRN Reason: NAUSEA Pantoprazole Sodium (Protonix Iv) 40 mg IVPUSH DAILY [facility] Last Admin: 01/04/19 09:19 Dose: 40 mg Potassium Phos/Sodium Phos (Phos-Nak Packet -) 1 packet PO TID [facility] Last Admin: 01/04/19 13:23 Dose: 1 packet Propranolol HCl (Inderal -) 60 mg PO Q6H [facility] Last Admin: 01/04/19 09:20 Dose: 60 mg Propranolol HCl (Inderal Injection -) 1 mg IVPUSH Q1H PRN PRN Reason: TACHYCARDIA A/P Large Bowel Obstruction/Ascending Colon Mass Newly Diagnosed Colon Ca s/p ex-lap/right hemicolectomy/primary ileotransverse anastamosis Atrial Fibrillation/Flutter with RVR Acute RLL Pulmonary Embolism HTN GERD Dementia - pain control - incentive spirometry - rate control per cardiology - continue anticoagulation - PO as tolerated - on antibiotics per ID
[2019-01-04 13:42] LABS: ALBUMIN 1.5 g/dl (3.4-5.0); ALK PHOS 78 U/L (45-117); ANION GAP 7 MMOL/L (8-16); BILIRUBIN,TOTAL 0.4 mg/dL (0.2-1); BLOOD UREA NITROGEN 7 mg/dL (7-18); CALCIUM 7.4 mg/dL (8.5-10.1); CHLORIDE 98 mmol/L (98-107); CO2 28 mmol/L (21-32); CREATININE 0.5 mg/dL (0.55-1.3); GLUCOSE,RANDOM 126 mg/dL (74-106); MAGNESIUM 1.7 mg/dL (1.8-2.4); POTASSIUM 3.2 mmol/L (3.5-5.1); SGOT/AST 22 U/L (15-37); SGPT/ALT 14 U/L (13-61); SODIUM 133 mmol/L (136-145); TOT PROT 4.6 g/dl (6.4-8.2)
[2019-01-04] MEDS ORDERED: POTASSIUM CHLORIDE TABS 20 MEQ TABLET.ER (FP) PO ONE (13:43)
--- NOTE | 2019-01-04 16:36 | PN ---
Progress Note, Physician History of Present Illness: patient clinically stable though wbc has started rising again - Current Medication List Current Medications: Active Medications Acetaminophen (Tylenol -) 650 mg PO Q6H PRN PRN Reason: PAIN LEVEL 1-5 Apixaban (Eliquis -) 5 mg PO BID [facility] Last Admin: 01/04/19 09:19 Dose: 5 mg Diltiazem HCl (Cardizem -) 60 mg PO Q6HPO [facility] Last Admin: 01/04/19 12:03 Dose: 60 mg Diltiazem HCl (Cardizem Injection -) 10 mg IVPUSH Q4H PRN PRN Reason: TACHYCARDIA Fluticasone Propionate (Flonase -) 2 spray NS DAILY [facility] Last Admin: 01/04/19 09:23 Dose: 2 spray Magnesium Oxide (Mag-Ox -) 400 mg PO BID [facility] Last Admin: 01/04/19 09:19 Dose: 400 mg Ondansetron HCl (Zofran Injection) 4 mg IVPUSH Q6H PRN PRN Reason: NAUSEA Pantoprazole Sodium (Protonix Iv) 40 mg IVPUSH DAILY [facility] Last Admin: 01/04/19 09:19 Dose: 40 mg Potassium Phos/Sodium Phos (Phos-Nak Packet -) 1 packet PO TID [facility] Last Admin: 01/04/19 13:23 Dose: 1 packet Propranolol HCl (Inderal -) 60 mg PO Q6H [facility] Last Admin: 01/04/19 16:25 Dose: 60 mg Propranolol HCl (Inderal Injection -) 1 mg IVPUSH Q1H PRN PRN Reason: TACHYCARDIA - Objective Vital Signs: Vital Signs Temperature 98.6 F 01/04/19 06:00 Pulse Rate 85 01/04/19 14:00 Respiratory Rate 26 H 01/04/19 14:00 Blood Pressure 90/56 L 01/04/19 14:00 O2 Sat by Pulse Oximetry (%) 99 01/04/19 09:00 Constitutional: Yes: No Distress, Calm Cardiovascular: Yes: Regular Rate and Rhythm Respiratory: Yes: Regular, CTA Bilaterally Gastrointestinal: Yes: Normal Bowel Sounds, Soft Musculoskeletal: Yes: WNL Extremities: Yes: WNL Neurological: Yes: Alert Psychiatric: Yes: Alert Labs: CBC, BMP 01/04/19 12:33 01/04/19 12:33 INR, PTT INR 1.13 (0.83-1.09) H 12/21/18 09:35 Assessment/Plan - Problems (1) Colon obstruction Code(s): K56.609 - UNSP INTESTNL OBST, UNSP TO PARTIAL VERSUS COMPLETE OBST (2) Atrial fibrillation with RVR Code(s): I48.91 - UNSPECIFIED ATRIAL FIBRILLATION (3) Dementia Code(s): F03.90 - UNSPECIFIED DEMENTIA WITHOUT BEHAVIORAL DISTURBANCE (4) Esophagitis Code(s): K20.9 - ESOPHAGITIS, UNSPECIFIED (5) GERD (gastroesophageal reflux disease) Code(s): K21.9 - GASTRO-ESOPHAGEAL REFLUX DISEASE WITHOUT ESOPHAGITIS (6) Hypertension Code(s): I10 - ESSENTIAL (PRIMARY) HYPERTENSION Qualifiers: Hypertension type: essential hypertension Qualified Code(s): I10 - Essential (primary) hypertension leukocytosis pe patient has been having loose stools also sob ct looked at again pleural effusion has increased if the wbc continues to go up please consider pleural tap and also will order cdiff if wbc higher tomorrow will start on oral vanco
[2019-01-05] MEDS: NAPH,MB-DB/K PH,MBDB POWDER PACKET PO SCH ×3 (05:34→21:55)
[2019-01-05] MEDS: dilTIAZem HCL 60 MG TABLET (FP) PO SCH ×4 (05:34→17:05)
[2019-01-05] MEDS ORDERED: PT OWN MED DRAWER 7, Y5N ONE (09:31)
[2019-01-05] MEDS: PANTOPRAZOLE SODIUM 40 MG VIAL IVPUSH SCH (09:50)
[2019-01-05] MEDS: MAGNESIUM OXIDE 400 MG TABLET (FP) PO SCH ×2 (09:50→21:54)
[2019-01-05] MEDS: APIXABAN 5 MG TABLET PO SCH (09:50)
[2019-01-05] MEDS: FLUTICASONE PROP 0.05% 16 GM NASAL SPRAY NS SCH (09:52)
[2019-01-05 11:05] LABS: BASO % 0.3 % (0-2.0); EOS % 0.2 % (0-4.5); HEMATOCRIT 28.5 % (32.4-45.2); HEMOGLOBIN 9.2 GM/dL (10.7-15.3); LYMPH % 5.4 % (8-40); MCH 24.5 pg (25.7-33.7); MCHC 32.1 g/dl (32.0-36.0); MEAN CELL VOLUME 76.2 fl (80-96); MEAN PLT VOLUME 7.9 fl (7.5-11.1); MONO % 10.1 % (3.8-10.2); PLATELET COUNT 526 K/MM3 (134-434); RBC 3.75 M/mm3 (3.60-5.2); RDW 18.8 % (11.6-15.6)
--- NOTE | 2019-01-05 11:44 | PN ---
Progress Note (short form) - Note Progress Note: s: no cp sob palps dizzy o: Vital Signs Period Temp Pulse Resp BP Sys/Germain Pulse Ox Last 24 Hr 98.2 F-99.2 F 85-126 24-30 90-159/52-70 99 nad, no jvd irreg s1s2 no mrg cta bl nl eff awake, alert no jaundice diaphoresis no le e/c/c abd nt nd pos bs Current Medications Generic Name Dose Route Start Last Admin Trade Name Freq PRN Reason Stop Dose Admin Acetaminophen 650 mg 01/03/19 08:46 Tylenol - PO Q6H PRN PAIN LEVEL 1-5 Apixaban 5 mg 12/28/18 22:00 01/05/19 09:50 Eliquis - PO 5 mg BID OBDULIO Administration Diltiazem HCl 60 mg 12/29/18 00:00 01/05/19 05:34 Cardizem - PO 60 mg Q6HPO OBDULIO Administration Diltiazem HCl 10 mg 12/28/18 20:38 Cardizem Injection - IVPUSH Q4H PRN TACHYCARDIA Fluticasone Propionate 2 spray 12/29/18 10:00 01/05/19 09:52 Flonase - NS 2 spray DAILY OBDULIO Administration Magnesium Oxide 400 mg 01/03/19 22:00 01/05/19 09:50 Mag-Ox - PO 400 mg BID OBDULIO Administration Ondansetron HCl 4 mg 12/28/18 20:38 Zofran Injection IVPUSH Q6H PRN NAUSEA Pantoprazole Sodium 40 mg 12/29/18 10:00 01/05/19 09:50 Protonix Iv IVPUSH 40 mg DAILY OBDULIO Administration Potassium Phos/Sodium Phos 1 packet 12/28/18 14:00 01/05/19 05:34 Phos-Nak Packet - PO 1 packet TID OBDULIO Administration Propranolol HCl 60 mg 12/28/18 22:00 01/05/19 09:51 Inderal - PO 60 mg Q6H OBDULIO Administration Propranolol HCl 1 mg 12/28/18 20:38 Inderal Injection - IVPUSH Q1H PRN TACHYCARDIA CBC, BMP 01/05/19 10:00 ecg: aflutter with 2:1 avb, vr 127, no ischemic changes CXR 12/28: slight incr bilat pulm/pleural changes Echo 12/2018: small LV cavity, hyperdynamic. mild-mod dilated RV, hyperdynamic RVSF. mild ERIK. mild-mod MR (eccentric). RVSP 30-35 CTA chest acute RLL PE, mod R and small left pleural effusions tele: AF/flutter, 120s a/p: 83 f hx dementia, afib/flutter, gerd, htn, tia, sent from [place] for coffee ground emesis. aflutter: - was on diltiazem 60 mg QID and propranolol 120 mg BID at home-->npo postop bowel surgery with tachycardia and hypotensive on levophed-->amio gtt started with persistent tachycardia. hemodynamics improved-->amio d/c'd, prn iv diltiazem ordered - 12/25: H?R 140s, no response to IV diltiazem pushes, SBP dropped to 80s. d/w'd icu team: will start non-chronotropic vasoconstrictor pressor, then initiate low dose PO and IV propranolol trial for HR control. - eliquis held briefly during 12/05 admit with GIB, resumed on discharge with plan for outpt GI scopes. H/H were stable when arrived this time with SBO, eliquis now on hold for surgery - 12/26: HR remains 130s, will increase propranolol to 60 mg QID (home dose is propranolol long acting 120 mg BID). If BP tolerates would restart PO diltiazem as well, at home was on 60 mg QID - 12/27: eliquis resumed, HR 130s. change eliquis to 5 mg BID dosing (age >80 however she is >60 kg and Cr <1.5, does not meet criteria for low dose and was on full dose prior). BP improved today, will restart diltiazem 60 mg Q6H 12/28: HR improved but still fast at times, cont same dilt/inderal for now as bp on low side and monitor on tele. -12/29-: rates good, BPs soft--same meds -01/04-: rvr to 120s at times, pt tolerating and bp low side so cont same rate meds for now Pulmonary embolism, pleural effusions, acute diast CHF - pulm congestion on CXR after receiving IVF here, was diuresed - echo with dilated RV (normal function), no signific pulm HTN per TR gradient measurable on that study. Pt at risk for PE given: (1) AC had been held here for several days preop/postop, (2) she has new dx of colon malignancy; (3) she is postop and bedbound. - LE venous dopplers no DVT - CTA chest acute RLL PE - on eliquis - betzy pleural effusions on CTA 01/02- has been getting prn iv lasix. htn: -bb/ccb resumed for rate control sbo: -s/p surgery, found to have colon ca, onc following
[2019-01-05 11:47] LABS: ALBUMIN 1.5 g/dl (3.4-5.0); ALK PHOS 87 U/L (45-117); ANION GAP 7 MMOL/L (8-16); BILIRUBIN,TOTAL 0.5 mg/dL (0.2-1); BLOOD UREA NITROGEN 11 mg/dL (7-18); CALCIUM 7.6 mg/dL (8.5-10.1); CHLORIDE 97 mmol/L (98-107); CO2 28 mmol/L (21-32); CREATININE 0.5 mg/dL (0.55-1.3); GLUCOSE,RANDOM 123 mg/dL (74-106); POTASSIUM 3.7 mmol/L (3.5-5.1); SGOT/AST 39 U/L (15-37); SGPT/ALT 19 U/L (13-61); SODIUM 131 mmol/L (136-145); TOT PROT 4.5 g/dl (6.4-8.2)
--- NOTE | 2019-01-05 12:46 | PN ---
Progress Note (short form) - Note Progress Note: Resting in NAD. Denies shortness of breath or chest pain. Intake & Output 01/02/19 01/03/19 01/04/19 01/05/19 23:59 23:59 23:59 23:59 Intake Total 300 300 80 Balance 300 300 80 Last Vital Signs Temp Pulse Resp BP Pulse Ox 99.2 F 122 H 24 H 116/72 99 01/05/19 06:00 01/05/19 10:00 01/05/19 10:00 01/05/19 10:00 01/05/19 09:00 Active Medications Acetaminophen (Tylenol -) 650 mg PO Q6H PRN PRN Reason: PAIN LEVEL 1-5 Apixaban (Eliquis -) 5 mg PO BID [facility] Last Admin: 01/05/19 09:50 Dose: 5 mg Diltiazem HCl (Cardizem -) 60 mg PO Q6HPO [facility] Last Admin: 01/05/19 12:31 Dose: 60 mg Diltiazem HCl (Cardizem Injection -) 10 mg IVPUSH Q4H PRN PRN Reason: TACHYCARDIA Fluticasone Propionate (Flonase -) 2 spray NS DAILY [facility] Last Admin: 01/05/19 09:52 Dose: 2 spray Magnesium Oxide (Mag-Ox -) 400 mg PO BID [facility] Last Admin: 01/05/19 09:50 Dose: 400 mg Ondansetron HCl (Zofran Injection) 4 mg IVPUSH Q6H PRN PRN Reason: NAUSEA Pantoprazole Sodium (Protonix Iv) 40 mg IVPUSH DAILY [facility] Last Admin: 01/05/19 09:50 Dose: 40 mg Potassium Phos/Sodium Phos (Phos-Nak Packet -) 1 packet PO TID [facility] Last Admin: 01/05/19 05:34 Dose: 1 packet Propranolol HCl (Inderal -) 60 mg PO Q6H [facility] Last Admin: 01/05/19 09:51 Dose: 60 mg Propranolol HCl (Inderal Injection -) 1 mg IVPUSH Q1H PRN PRN Reason: TACHYCARDIA Gen: NAD at rest Heart: tachycardic Lung: decreased breath sounds at the bases Abd: soft, nontender Ext: no edema Laboratory Results - last 24 hr 01/04/19 01/04/19 01/05/19 12:33 12:33 10:00 WBC 17.7 H 19.0 H RBC 3.80 3.75 Hgb 9.2 L 9.2 L Hct 28.8 L 28.5 L MCV 75.8 L 76.2 L MCH 24.2 L 24.5 L MCHC 32.0 32.1 RDW 18.8 H 18.8 H Plt Count 473 H 526 H MPV 7.7 7.9 Absolute Neuts (auto) 14.9 H 15.9 H Neutrophils % 84.4 H 84.0 H Lymphocytes % 5.2 L D 5.4 L Monocytes % 10.1 10.1 Eosinophils % 0.1 0.2 D Basophils % 0.2 0.3 Nucleated RBC % 0 0 Sodium 133 L Potassium 3.2 L Chloride 98 Carbon Dioxide 28 Anion Gap 7 L BUN 7 Creatinine 0.5 L Creat Clearance w eGFR 117.26 Random Glucose 126 H Calcium 7.4 L Magnesium 1.7 L Total Bilirubin 0.4 AST 22 ALT 14 Alkaline Phosphatase 78 Total Protein 4.6 L Albumin 1.5 L 01/05/19 10:00 WBC RBC Hgb Hct MCV MCH MCHC RDW Plt Count MPV Absolute Neuts (auto) Neutrophils % Lymphocytes % Monocytes % Eosinophils % Basophils % Nucleated RBC % Sodium 131 L Potassium 3.7 Chloride 97 L Carbon Dioxide 28 Anion Gap 7 L BUN 11 Creatinine 0.5 L Creat Clearance w eGFR 117.26 Random Glucose 123 H Calcium 7.6 L Magnesium Total Bilirubin 0.5 AST 39 H ALT 19 Alkaline Phosphatase 87 Total Protein 4.5 L Albumin 1.5 L A/P Large Bowel Obstruction/Ascending Colon Mass Newly Diagnosed Colon Ca s/p ex-lap/right hemicolectomy/primary ileotransverse anastamosis Atrial Fibrillation/Flutter with RVR Acute RLL Pulmonary Embolism HTN GERD Dementia - pain control - incentive spirometry - rate control per cardiology - continue anticoagulation - PO as tolerated - ABX per ID Dr Monroe
[2019-01-05 13:35] LABS: MAGNESIUM 1.5 mg/dL (1.8-2.4)
[2019-01-05] MEDS ORDERED: MAGNESIUM SULF 50% (8.12 MEQ/2 ML-1 GM VIAL) IVPB ONE (14:50)
--- NOTE | 2019-01-05 14:53 | PN ---
Progress Note, Physician History of Present Illness: patient does not feel too good abd distension - Current Medication List Current Medications: Active Medications Acetaminophen (Tylenol -) 650 mg PO Q6H PRN PRN Reason: PAIN LEVEL 1-5 Apixaban (Eliquis -) 5 mg PO BID [facility] Last Admin: 01/05/19 09:50 Dose: 5 mg Diltiazem HCl (Cardizem -) 60 mg PO Q6HPO [facility] Last Admin: 01/05/19 12:31 Dose: 60 mg Diltiazem HCl (Cardizem Injection -) 10 mg IVPUSH Q4H PRN PRN Reason: TACHYCARDIA Fluticasone Propionate (Flonase -) 2 spray NS DAILY [facility] Last Admin: 01/05/19 09:52 Dose: 2 spray Magnesium Oxide (Mag-Ox -) 400 mg PO BID [facility] Last Admin: 01/05/19 09:50 Dose: 400 mg Ondansetron HCl (Zofran Injection) 4 mg IVPUSH Q6H PRN PRN Reason: NAUSEA Pantoprazole Sodium (Protonix Iv) 40 mg IVPUSH DAILY [facility] Last Admin: 01/05/19 09:50 Dose: 40 mg Potassium Phos/Sodium Phos (Phos-Nak Packet -) 1 packet PO TID [facility] Last Admin: 01/05/19 13:33 Dose: 1 packet Propranolol HCl (Inderal -) 60 mg PO Q6H [facility] Last Admin: 01/05/19 09:51 Dose: 60 mg Propranolol HCl (Inderal Injection -) 1 mg IVPUSH Q1H PRN PRN Reason: TACHYCARDIA - Objective Vital Signs: Vital Signs Temperature 99.2 F 01/05/19 06:00 Pulse Rate 122 H 01/05/19 10:00 Respiratory Rate 24 H 01/05/19 10:00 Blood Pressure 116/72 01/05/19 10:00 O2 Sat by Pulse Oximetry (%) 99 01/05/19 09:00 Constitutional: Yes: Calm, Mild Distress Cardiovascular: Yes: Regular Rate and Rhythm, Tachycardia Respiratory: Yes: Regular, Poor Air Entry Gastrointestinal: Yes: Distention, Hypoactive Bowel Sounds Musculoskeletal: Yes: WNL Extremities: Yes: WNL Neurological: Yes: Alert, Oriented Psychiatric: Yes: Alert, Oriented Labs: CBC, BMP 01/05/19 10:00 01/05/19 10:00 INR, PTT INR 1.13 (0.83-1.09) H 12/21/18 09:35 Assessment/Plan - Problems (1) Colon obstruction Code(s): K56.609 - UNSP INTESTNL OBST, UNSP TO PARTIAL VERSUS COMPLETE OBST (2) Atrial fibrillation with RVR Code(s): I48.91 - UNSPECIFIED ATRIAL FIBRILLATION (3) Dementia Code(s): F03.90 - UNSPECIFIED DEMENTIA WITHOUT BEHAVIORAL DISTURBANCE (4) Esophagitis Code(s): K20.9 - ESOPHAGITIS, UNSPECIFIED (5) GERD (gastroesophageal reflux disease) Code(s): K21.9 - GASTRO-ESOPHAGEAL REFLUX DISEASE WITHOUT ESOPHAGITIS (6) Hypertension Code(s): I10 - ESSENTIAL (PRIMARY) HYPERTENSION Qualifiers: Hypertension type: essential hypertension Qualified Code(s): I10 - Essential (primary) hypertension leukocytosis pe plan pls get a ct with po contrast--ordered close watch will start on flagyl rest as per the team
--- NOTE | 2019-01-05 15:08 | PN ---
Physical Exam: SUBJECTIVE: Patient seen and examined at the bedside. tells me she is not feeling well today. denies abdominal pain or nausea. OBJECTIVE: wbc bumped up today. abdomen slightly distended below umbilicus will ct scan surgery aware Vital Signs Period Temp Pulse Resp BP Sys/Germain Pulse Ox Last 24 Hr 98 F-99.2 F 91-126 22-30 102-159/52-72 99-99 GENERAL: The patient is awake, alert, confused, in no acute distress HEAD: Normal with no signs of trauma. EYES: PERRL, extraocular movements intact, sclera anicteric, conjunctiva clear. No ptosis. ENT: Ears normal, nares patent, oropharynx clear without exudates, moist mucous membranes. NECK: Trachea midline, full range of motion, supple. LUNGS: diminished bilaterally, on 2 liters of supplemental oxygen HEART: sinus tachycardia @120s ABDOMEN: abdominal brook intact, without drainage or redness EXTREMITIES: no edema. NEUROLOGICAL: Normal speech, lower ext weakness PSYCH: Normal mood, normal affect. Laboratory Results - last 24 hr 01/05/19 01/05/19 10:00 10:00 WBC 19.0 H RBC 3.75 Hgb 9.2 L Hct 28.5 L MCV 76.2 L MCH 24.5 L MCHC 32.1 RDW 18.8 H Plt Count 526 H MPV 7.9 Absolute Neuts (auto) 15.9 H Neutrophils % 84.0 H Lymphocytes % 5.4 L Monocytes % 10.1 Eosinophils % 0.2 D Basophils % 0.3 Nucleated RBC % 0 Sodium 131 L Potassium 3.7 Chloride 97 L Carbon Dioxide 28 Anion Gap 7 L BUN 11 Creatinine 0.5 L Creat Clearance w eGFR 117.26 Random Glucose 123 H Calcium 7.6 L Magnesium 1.5 L Total Bilirubin 0.5 AST 39 H ALT 19 Alkaline Phosphatase 87 Total Protein 4.5 L Albumin 1.5 L Active Medications Generic Name Dose Route Start Last Admin Trade Name Freq PRN Reason Stop Dose Admin Acetaminophen 650 mg 01/03/19 08:46 Tylenol - PO Q6H PRN PAIN LEVEL 1-5 Apixaban 5 mg 12/28/18 22:00 01/05/19 09:50 Eliquis - PO 5 mg BID [facility] Administration Diltiazem HCl 60 mg 12/29/18 00:00 01/05/19 12:31 Cardizem - PO 60 mg Q6HPO [facility] Administration Diltiazem HCl 10 mg 12/28/18 20:38 Cardizem Injection - IVPUSH Q4H PRN TACHYCARDIA Fluticasone Propionate 2 spray 12/29/18 10:00 01/05/19 09:52 Flonase - NS 2 spray DAILY [facility] Administration Metronidazole 500 mg in 100 mls @ 100 mls/hr 01/05/19 15:00 Flagyl 500mg Premixed Ivpb - IVPB Q8H-IV [facility] Magnesium Oxide 400 mg 01/03/19 22:00 01/05/19 09:50 Mag-Ox - PO 400 mg BID [facility] Administration Ondansetron HCl 4 mg 12/28/18 20:38 Zofran Injection IVPUSH Q6H PRN NAUSEA Pantoprazole Sodium 40 mg 12/29/18 10:00 01/05/19 09:50 Protonix Iv IVPUSH 40 mg DAILY [facility] Administration Potassium Phos/Sodium Phos 1 packet 12/28/18 14:00 01/05/19 13:33 Phos-Nak Packet - PO 1 packet TID [facility] Administration Propranolol HCl 60 mg 12/28/18 22:00 01/05/19 09:51 Inderal - PO 60 mg Q6H [facility] Administration Propranolol HCl 1 mg 12/28/18 20:38 Inderal Injection - IVPUSH Q1H PRN TACHYCARDIA ASSESSMENT/PLAN: Patient is an 83 year old female with past medical history of reflux, esophagitis, dementia, hallucinations, ataxia, HTN, benign neoplasm of cerebral meninges, who presents to the emergency department via EMS from longterm due to nausea and vomiting. She was evaluated in the ED and was noted to be with afib with RVR . Patient is a poor historian and confused at baseline. She was mostly recently at [facility] between 12/13/2018 and 12/20/2018 for vomitus with coffee ground emesis. She is s/p EGD which was negative. A colonoscopy was not done secondary to electrolyte imbalance and persistent tachycardia. She was discharged and recommended to follow up with GI outpatient for a colonscopy , however she returned to the ED on the next day for worsening abdominal symptoms. Imaging: Abdominal CT w/o contrast 12/21/18 shows diffuse to moderate marked dilatation of the small bowel including the terminal ileum with significant dilatation of the cecum and proximal ascending colon up to a point of transition seen in the proximal/mid ascending colon where there is suggestion of wall thickening and collapse of the rest of the colon consistent with obstruction. CTA 01/01/19: acute RLL PE, moderate right sided pleural effusion and small to moderate left sided pleural effusion have increased in size. GI: Acute bowel obstructions seen on Abd CT. on 12/23/18 had exploratory laparotomy, right toribio colectomy with primary ileotransverse stapled anastomosis. She was found to have obstructing ascending colon mass, now found to have colon cancer. Today, she is noted to have mild abdominal distention with elevated WBC. CT scan of abd/pelvis ordered. Cardiac: Uncontrolled afib with RVR. on propranolol q6, cardizem q q6 Hypertension. controlled. Pulmonary: Pulmonary embolism per CTA. On supplemental oxygen. on Eliquis 5mg BID Pleural effusions. small to moderate sized pleural effusions have increased in size. on supplemental oxygen, short of breath with minimal exertion. fen tolerating clears, advance per surgery Protonix prophy physical therapy SCDs and CHLOE lazar dnr/dni Visit type - Emergency Visit Emergency Visit: Yes ED Registration Date: 12/22/18 Care time: The patient presented to the Emergency Department on the above date and was hospitalized for further evaluation of their emergent condition. - New Patient This patient is new to me today: No - Critical Care Critical Care patient: No - Discharge Referral Referred to [facility] Med P.C.: No
[2019-01-05] MEDS ORDERED: FUROSEMIDE 40 MG/4 ML INJECTABLE VIAL IVPUSH ONE (20:11)
[2019-01-05] MEDS ORDERED: HEPARIN NA (PORCINE) 5,000 UNITS/ML 1ML VIAL IVPUSH PRN ×2 (21:00)
[2019-01-05 22:15] LABS: HEMATOCRIT 27.9 % (32.4-45.2); HEMOGLOBIN 9.2 GM/dL (10.7-15.3); MCH 24.9 pg (25.7-33.7); MCHC 32.9 g/dl (32.0-36.0); MEAN CELL VOLUME 75.6 fl (80-96); MEAN PLT VOLUME 7.7 fl (7.5-11.1); PLATELET COUNT 509 K/MM3 (134-434); RBC 3.69 M/mm3 (3.60-5.2); WHITE BLOOD COUNT 18.6 K/mm3 (4.0-10.0)
[2019-01-06] MEDS: HEPARIN INFUSION - 25,000 UNITS/500 ML INFUS.BAG IVPB SCH ×3 (00:21→22:45)
[2019-01-06] MEDS: dilTIAZem HCL 60 MG TABLET (FP) PO SCH ×5 (00:32→22:43)
[2019-01-06] MEDS: FUROSEMIDE 40 MG/4 ML INJECTABLE VIAL IVPUSH SCH ×2 (06:41→16:14)
[2019-01-06] MEDS: NAPH,MB-DB/K PH,MBDB POWDER PACKET PO SCH ×3 (07:40→22:43)
[2019-01-06] MEDS ORDERED: PT OWN MED DRAWER 7, Y5N ONE (08:23)
--- NOTE | 2019-01-06 08:23 | PN ---
Physical Exam: SUBJECTIVE: Patient seen and examined at the bedside. short of breath at rest. breathing rate >28-30. discussed POC HCP last night. OBJECTIVE: chest xray with increased large right pleural fluid. started her on lasix iv bid thoracic surgery consulted for possible tap eliquis d/c now on heparin drip I called both HCPs Rossana Cruz and Shantell Cruz. Rossana Cruz is listed at the primary HCP, Shantell as the alternate. Per Rossana Cruz, she would like for us to call her daughter Shantell Cruz for any medical decisions that need to be made on Elham Peguero. Vital Signs Period Temp Pulse Resp BP Sys/Germain Pulse Ox Last 24 Hr 98 F-99 F 112-126 20-24 97-129/56-72 99-99 GENERAL: The patient is awake, alert, confused, in no acute distress HEAD: Normal with no signs of trauma. EYES: PERRL, extraocular movements intact, sclera anicteric, conjunctiva clear. No ptosis. ENT: Ears normal, nares patent, oropharynx clear without exudates, moist mucous membranes. NECK: Trachea midline, full range of motion, supple. LUNGS: diminished bilaterally, on 2 liters of supplemental oxyen. stable sats, breathing rate 28-30, sob at rest. HEART: sinus tachycardia @120s ABDOMEN: abdominal brook intact, without drainage or redness EXTREMITIES: no edema. NEUROLOGICAL: Normal speech, lower ext weakness PSYCH: Normal mood, normal affect. Laboratory Results - last 24 hr 01/05/19 01/05/19 01/05/19 10:00 10:00 21:00 WBC 19.0 H RBC 3.75 Hgb 9.2 L Hct 28.5 L MCV 76.2 L MCH 24.5 L MCHC 32.1 RDW 18.8 H Plt Count 526 H MPV 7.9 Absolute Neuts (auto) 15.9 H Neutrophils % 84.0 H Lymphocytes % 5.4 L Monocytes % 10.1 Eosinophils % 0.2 D Basophils % 0.3 Nucleated RBC % 0 PTT (Actin FS) 39.7 H Sodium 131 L Potassium 3.7 Chloride 97 L Carbon Dioxide 28 Anion Gap 7 L BUN 11 Creatinine 0.5 L Creat Clearance w eGFR 117.26 Random Glucose 123 H Calcium 7.6 L Magnesium 1.5 L Total Bilirubin 0.5 AST 39 H ALT 19 Alkaline Phosphatase 87 Total Protein 4.5 L Albumin 1.5 L 01/05/19 01/06/19 21:00 05:30 WBC 18.6 H RBC 3.69 Hgb 9.2 L Hct 27.9 L MCV 75.6 L MCH 24.9 L MCHC 32.9 RDW 19.0 H Plt Count 509 H MPV 7.7 Absolute Neuts (auto) Neutrophils % Lymphocytes % Monocytes % Eosinophils % Basophils % Nucleated RBC % PTT (Actin FS) 45.6 H Sodium Potassium Chloride Carbon Dioxide Anion Gap BUN Creatinine Creat Clearance w eGFR Random Glucose Calcium Magnesium Total Bilirubin AST ALT Alkaline Phosphatase Total Protein Albumin Active Medications Generic Name Dose Route Start Last Admin Trade Name Freq PRN Reason Stop Dose Admin Acetaminophen 650 mg 01/03/19 08:46 Tylenol - PO Q6H PRN PAIN LEVEL 1-5 Diltiazem HCl 60 mg 12/29/18 00:00 01/06/19 06:40 Cardizem - PO 60 mg Q6HPO [facility] Administration Diltiazem HCl 10 mg 12/28/18 20:38 Cardizem Injection - IVPUSH Q4H PRN TACHYCARDIA Fluticasone Propionate 2 spray 12/29/18 10:00 01/05/19 09:52 Flonase - NS 2 spray DAILY [facility] Administration Furosemide 40 mg 01/06/19 06:00 01/06/19 06:41 Lasix Injection - IVPUSH 40 mg BID@0600,1400 [facility] Administration Heparin Sodium (Porcine) 1,000 unit 01/05/19 21:00 Heparin - IVPUSH PRN PRN Heparin Heparin Sodium (Porcine) 5,000 unit 01/05/19 21:00 Heparin - IVPUSH PRN PRN Heparin Metronidazole 500 mg in 100 mls @ 100 mls/hr 01/05/19 15:00 01/06/19 02:58 Flagyl 500mg Premixed Ivpb - IVPB 100 mls/hr Q8H-IV [facility] Administration Heparin Sodium/Dextrose 25,000 units in 500 mls @ 20 mls/hr 01/05/19 21:00 00:21 Heparin Infusion - IVPB 1,000 units/hr TITR [facility] 20 mls/hr Administration Protocol 1,000 UNITS/HR Magnesium Oxide 400 mg 01/03/19 22:00 01/05/19 21:54 Mag-Ox - PO 400 mg BID [facility] Administration Ondansetron HCl 4 mg 12/28/18 20:38 Zofran Injection IVPUSH Q6H PRN NAUSEA Pantoprazole Sodium 40 mg 12/29/18 10:00 01/05/19 09:50 Protonix Iv IVPUSH 40 mg DAILY [facility] Administration Potassium Phos/Sodium Phos 1 packet 12/28/18 14:00 01/06/19 07:40 Phos-Nak Packet - PO 1 packet TID [facility] Administration Propranolol HCl 60 mg 12/28/18 22:00 01/06/19 06:39 Inderal - PO 60 mg Q6H [facility] Administration Propranolol HCl 1 mg 12/28/18 20:38 Inderal Injection - IVPUSH Q1H PRN TACHYCARDIA ASSESSMENT/PLAN: Patient is an 83 year old female with past medical history of reflux, esophagitis, dementia, hallucinations, ataxia, HTN, benign neoplasm of cerebral meninges, who presents to the emergency department via EMS from alf due to nausea and vomiting. She was evaluated in the ED and was noted to be with afib with RVR . Patient is a poor historian and confused at baseline. She was mostly recently at [facility] between 12/13/2018 and 12/20/2018 for vomitus with coffee ground emesis. She is s/p EGD which was negative. A colonoscopy was not done secondary to electrolyte imbalance and persistent tachycardia. She was discharged and recommended to follow up with GI outpatient for a colonscopy , however she returned to the ED on the next day for worsening abdominal symptoms. Imaging: Abdominal CT w/o contrast 12/21/18 shows diffuse to moderate marked dilatation of the small bowel including the terminal ileum with significant dilatation of the cecum and proximal ascending colon up to a point of transition seen in the proximal/mid ascending colon where there is suggestion of wall thickening and collapse of the rest of the colon consistent with obstruction. CTA 01/01/19: acute RLL PE, moderate right sided pleural effusion and small to moderate left sided pleural effusion have increased in size. chest xray 01/06/19 with increased right pleural effusion chest cta: 01/05/19: mild dilatation of multiple small bowel loops and mild dilatation of the transverse colon, possible ileus and or partial SBO. development of free fluid is noted. large right pleural effusion. 2.3 cm mild hyperdense left renal cortical structure possibly representing a complex cyst, correletion with sono or MRI suggested. Pulmonary: Pulmonary embolism per CTA. on RLL, acute PE On eliquis, but has been stopped and placed on heparin drip in anticipation of a thoracentesis for increased right pleural effusion On supplemental oxygen thoracic surgery consulted for further recommendations. discussed with queen producer GI: Acute bowel obstructions seen on Abd CT. on 12/23/18 had exploratory laparotomy, right toribio colectomy with primary ileotransverse stapled anastomosis. She was found to have obstructing ascending colon mass, now found to have colon cancer. CT scan of abd/pelvis reviewed as noted above. surgery following. Cardiac: Uncontrolled afib with RVR. on propranolol q6, cardizem q q6 Hypertension. controlled. fen tolerating full liquid, advance per surgery Protonix prophy physical therapy SCDs and CHLOE stockings dnr/dni Visit type - Emergency Visit Emergency Visit: Yes ED Registration Date: 12/22/18 Care time: The patient presented to the Emergency Department on the above date and was hospitalized for further evaluation of their emergent condition. - New Patient This patient is new to me today: No - Critical Care Critical Care patient: No - Discharge Referral Referred to [facility] Med P.C.: No
[2019-01-06] MEDS: MAGNESIUM OXIDE 400 MG TABLET (FP) PO SCH ×2 (09:00→22:43)
[2019-01-06] MEDS: PANTOPRAZOLE SODIUM 40 MG VIAL IVPUSH SCH (09:00)
[2019-01-06 09:21] LABS: BASO % 0.4 % (0-2.0); EOS % 0.5 % (0-4.5); HEMATOCRIT 28.5 % (32.4-45.2); HEMOGLOBIN 9.3 GM/dL (10.7-15.3); LYMPH % 7.6 % (8-40); MCHC 32.8 g/dl (32.0-36.0); MEAN CELL VOLUME 76.2 fl (80-96); MEAN PLT VOLUME 8.1 fl (7.5-11.1); MONO % 10.7 % (3.8-10.2); NEUT % 80.8 % (42.8-82.8); PLATELET COUNT 466 K/MM3 (134-434); RBC 3.73 M/mm3 (3.60-5.2); RDW 18.7 % (11.6-15.6); WHITE BLOOD COUNT 14.2 K/mm3 (4.0-10.0)
[2019-01-06 09:33] LABS: ALBUMIN 1.6 g/dl (3.4-5.0); ALK PHOS 95 U/L (45-117); ANION GAP 9 MMOL/L (8-16); BILIRUBIN,TOTAL 0.5 mg/dL (0.2-1); BLOOD UREA NITROGEN 10 mg/dL (7-18); CALCIUM 7.5 mg/dL (8.5-10.1); CHLORIDE 96 mmol/L (98-107); CO2 29 mmol/L (21-32); CREATININE 0.5 mg/dL (0.55-1.3); GLUCOSE,RANDOM 89 mg/dL (74-106); POTASSIUM 3.4 mmol/L (3.5-5.1); SGOT/AST 48 U/L (15-37); SGPT/ALT 25 U/L (13-61); SODIUM 134 mmol/L (136-145); TOT PROT 4.7 g/dl (6.4-8.2)
--- NOTE | 2019-01-06 09:50 | PN ---
Progress Note (short form) - Note Progress Note: s: no cp sob palps dizzy o: Vital Signs Period Temp Pulse Resp BP Sys/Germain Pulse Ox Last 24 Hr 98 F-99 F 112-126 20-24 97-129/56-72 99 nad, no jvd irreg s1s2 no mrg cta bl nl eff awake, alert no jaundice diaphoresis no le e/c/c abd nt nd pos bs Current Medications Acetaminophen (Tylenol -) 650 mg PO Q6H PRN PRN Reason: PAIN LEVEL 1-5 Diltiazem HCl (Cardizem -) 60 mg PO Q6HPO [facility] Last Admin: 01/06/19 06:40 Dose: 60 mg Diltiazem HCl (Cardizem Injection -) 10 mg IVPUSH Q4H PRN PRN Reason: TACHYCARDIA Fluticasone Propionate (Flonase -) 2 spray NS DAILY [facility] Last Admin: 01/05/19 09:52 Dose: 2 spray Furosemide (Lasix Injection -) 40 mg IVPUSH BID@0600,1400 [facility] Last Admin: 01/06/19 06:41 Dose: 40 mg Heparin Sodium (Porcine) (Heparin -) 1,000 unit IVPUSH PRN PRN PRN Reason: Heparin Heparin Sodium (Porcine) (Heparin -) 5,000 unit IVPUSH PRN PRN PRN Reason: Heparin Metronidazole (Flagyl 500mg Premixed Ivpb -) 500 mg in 100 mls @ 100 mls/hr IVPB Q8H-IV [facility] Last Admin: 01/06/19 09:01 Dose: 100 mls/hr Heparin Sodium/Dextrose (Heparin Infusion -) 25,000 units in 500 mls @ 20 mls/ hr IVPB TITR [facility]BD[facility]; Protocol Last Admin: 01/06/19 00:21 Dose: 1,000 units/hr, 20 mls/hr Magnesium Oxide (Mag-Ox -) 400 mg PO BID [facility] Last Admin: 01/06/19 09:00 Dose: 400 mg Ondansetron HCl (Zofran Injection) 4 mg IVPUSH Q6H PRN PRN Reason: NAUSEA Pantoprazole Sodium (Protonix Iv) 40 mg IVPUSH DAILY [facility] Last Admin: 01/06/19 09:00 Dose: 40 mg Potassium Phos/Sodium Phos (Phos-Nak Packet -) 1 packet PO TID [facility] Last Admin: 01/06/19 07:40 Dose: 1 packet Propranolol HCl (Inderal -) 60 mg PO Q6H [facility] Last Admin: 01/06/19 06:39 Dose: 60 mg Propranolol HCl (Inderal Injection -) 1 mg IVPUSH Q1H PRN PRN Reason: TACHYCARDIA ecg: aflutter with 2:1 avb, vr 127, no ischemic changes CXR 12/28: slight incr bilat pulm/pleural changes Echo 12/2018: small LV cavity, hyperdynamic. mild-mod dilated RV, hyperdynamic RVSF. mild ERIK. mild-mod MR (eccentric). RVSP 30-35 CTA chest acute RLL PE, mod R and small left pleural effusions tele: AF/flutter, 120s a/p: 83 f hx dementia, afib/flutter, gerd, htn, tia, sent from or for coffee ground emesis. aflutter: - was on diltiazem 60 mg QID and propranolol 120 mg BID at home-->npo postop bowel surgery with tachycardia and hypotensive on levophed-->amio gtt started with persistent tachycardia. hemodynamics improved-->amio d/c'd, prn iv diltiazem ordered - 12/25: H?R 140s, no response to IV diltiazem pushes, SBP dropped to 80s. d/w'd icu team: will start non-chronotropic vasoconstrictor pressor, then initiate low dose PO and IV propranolol trial for HR control. - eliquis held briefly during 12/05 admit with GIB, resumed on discharge with plan for outpt GI scopes. H/H were stable when arrived this time with SBO, eliquis now on hold for surgery - 12/26: HR remains 130s, will increase propranolol to 60 mg QID (home dose is propranolol long acting 120 mg BID). If BP tolerates would restart PO diltiazem as well, at home was on 60 mg QID - 12/27: eliquis resumed, HR 130s. change eliquis to 5 mg BID dosing (age >80 however she is >60 kg and Cr <1.5, does not meet criteria for low dose and was on full dose prior). BP improved today, will restart diltiazem 60 mg Q6H 12/28: HR improved but still fast at times, cont same dilt/inderal for now as bp on low side and monitor on tele. -12/29-: rates good, BPs soft--same meds -01/04-: rvr to 120s at times, pt tolerating and bp low side so cont same rate meds for now - holding eliquis, on heparin gtt for thoracentesis Pulmonary embolism, pleural effusions, acute diast CHF - pulm congestion on CXR after receiving IVF here, was diuresed - echo with dilated RV (normal function), no signific pulm HTN per TR gradient measurable on that study. Pt at risk for PE given: (1) AC had been held here for several days preop/postop, (2) she has new dx of colon malignancy; (3) she is postop and bedbound. - LE venous dopplers no DVT - CTA chest acute RLL PE - on eliquis - betzy pleural effusions on CTA 01/02- had been getting prn iv lasix - CT abd/pelvis 01/05 shows large R pleural effusion increased in size - now on lasix 40 mg IV BID, plan for thoracentesis htn: -bb/ccb resumed for rate control sbo: -s/p surgery, found to have colon ca, onc following
[2019-01-06] MEDS: FLUTICASONE PROP 0.05% 16 GM NASAL SPRAY NS SCH (12:15)
--- NOTE | 2019-01-06 13:22 | PN ---
Progress Note, Physician Chief Complaint: LBO History of Present Illness: 83 yo female PMH reflux, esophagitis, dementia, hallucinations, ataxia, HTN, benign neoplasm of cerebral meninges, who presents to the emergency department via EMS from senior living due to nausea and vomiting that started today. She has been stable since surgery. - Current Medication List Current Medications: Active Medications Acetaminophen (Tylenol -) 650 mg PO Q6H PRN PRN Reason: PAIN LEVEL 1-5 Diltiazem HCl (Cardizem -) 60 mg PO Q6HPO [facility] Last Admin: 01/06/19 12:20 Dose: 60 mg Diltiazem HCl (Cardizem Injection -) 10 mg IVPUSH Q4H PRN PRN Reason: TACHYCARDIA Fluticasone Propionate (Flonase -) 2 spray NS DAILY [facility] Last Admin: 01/06/19 12:15 Dose: 2 spray Furosemide (Lasix Injection -) 40 mg IVPUSH BID@0600,1400 [facility] Last Admin: 01/06/19 06:41 Dose: 40 mg Heparin Sodium (Porcine) (Heparin -) 1,000 unit IVPUSH PRN PRN PRN Reason: Heparin Heparin Sodium (Porcine) (Heparin -) 5,000 unit IVPUSH PRN PRN PRN Reason: Heparin Metronidazole (Flagyl 500mg Premixed Ivpb -) 500 mg in 100 mls @ 100 mls/hr IVPB Q8H-IV [facility] Last Admin: 01/06/19 09:01 Dose: 100 mls/hr Heparin Sodium/Dextrose (Heparin Infusion -) 25,000 units in 500 mls @ 20 mls/ hr IVPB TITR [facility]; Protocol Last Admin: 01/06/19 00:21 Dose: 1,000 units/hr, 20 mls/hr Magnesium Oxide (Mag-Ox -) 400 mg PO BID [facility] Last Admin: 01/06/19 09:00 Dose: 400 mg Ondansetron HCl (Zofran Injection) 4 mg IVPUSH Q6H PRN PRN Reason: NAUSEA Pantoprazole Sodium (Protonix Iv) 40 mg IVPUSH DAILY [facility] Last Admin: 01/06/19 09:00 Dose: 40 mg Potassium Phos/Sodium Phos (Phos-Nak Packet -) 1 packet PO TID [facility] Last Admin: 01/06/19 07:40 Dose: 1 packet Propranolol HCl (Inderal -) 60 mg PO Q6H [facility] Last Admin: 01/06/19 12:16 Dose: Not Given Propranolol HCl (Inderal Injection -) 1 mg IVPUSH Q1H PRN PRN Reason: TACHYCARDIA - Objective Vital Signs: Vital Signs Temperature 99 F 01/06/19 06:00 Pulse Rate 127 H 01/06/19 10:00 Respiratory Rate 20 01/06/19 10:48 Blood Pressure 89/65 L 01/06/19 10:00 O2 Sat by Pulse Oximetry (%) 99 01/06/19 10:48 Vital Signs Period Temp Pulse Resp BP Sys/Germain Pulse Ox Last 24 Hr 97.1 F-98.2 F 119-126 14-25 87-102/49-80 95-95 Intake & Output 01/08/19 01/08/19 01/08/19 07:59 15:59 23:59 Intake Total 464 Balance 464 Weight 139 lb 7 oz Intake: IV 264 HEPARIN INFUSION - 25,000 264 units In 500 ml @ 1,000 UNITS/HR 20 mls/hr IVPB TITR [facility]BD[facility] Rx#:[id number] IVPB 200 Oral 0 Other: Voiding Method Incontinent # Unmeasured Voids Void 2 Bowel Movement Yes # Bowel Movements 1 Weight Measurement Method Built in [facility] Constitutional: Yes: Well Nourished, No Distress, Calm Eyes: Yes: Conjunctiva Clear, EOM Intact, Ptosis HENT: Yes: Atraumatic Neck: Yes: Supple, Trachea Midline Cardiovascular: Yes: Regular Rate and Rhythm, S1, S2 Respiratory: Yes: Regular, CTA Bilaterally Gastrointestinal: Yes: Normal Bowel Sounds, Soft. No: Tenderness ...Rectal Exam: Yes: Deferred Genitourinary: No: CVA Tenderness - Left, CVA Tenderness - Right Breast(s): No: Discharge from Nipple, Skin Changes Musculoskeletal: No: Muscle Pain, Muscle Weakness Extremities: No: Cool, Cyanosis Edema: No Peripheral Pulses WNL: Yes Peripheral Pulses: Left Radial: 2+, Right Radial: 2+, Left Doralis Pedis: 2+, Right Dorsalis Pedis: 2+, Left Femoral: 2+, Right Femoral: 2+ Wound/Incision: Yes: Clean/Dry, Well Approximated, [place] Intact Neurological: Yes: Alert, Confusion. No: Oriented Psychiatric: Yes: Alert. No: Oriented Labs: CBC, BMP 01/06/19 05:30 01/06/19 05:30 INR, PTT INR 1.13 (0.83-1.09) H 12/21/18 09:35 Problem List - Problems (1) Colon obstruction Assessment/Plan: 83yo female returned from [place] the next morning after discharge with feculent emesis and an identified large bowel obstruction suspicious for malignancy. this may be a missed diagnosis from previous admission. POD#10 s/p Right hemicolectomy for an obstructing colon mass Diet as tolerated IVF hydration IV antibiotics per ID trend labs Early mobilization OOB encourage IS ID consult for continued antibiotics This patient is critically ill. Time spent reviewing chart, examining patient, talking with providers and/or family and documentation is 35 minutes. Code(s): K56.609 - UNSP INTESTNL OBST, UNSP TO PARTIAL VERSUS COMPLETE OBST (2) Atrial fibrillation with RVR Code(s): I48.91 - UNSPECIFIED ATRIAL FIBRILLATION (3) Dementia Code(s): F03.90 - UNSPECIFIED DEMENTIA WITHOUT BEHAVIORAL DISTURBANCE (4) Esophagitis Code(s): K20.9 - ESOPHAGITIS, UNSPECIFIED (5) GERD (gastroesophageal reflux disease) Code(s): K21.9 - GASTRO-ESOPHAGEAL REFLUX DISEASE WITHOUT ESOPHAGITIS (6) Hypertension Code(s): I10 - ESSENTIAL (PRIMARY) HYPERTENSION Qualifiers: Hypertension type: essential hypertension Qualified Code(s): I10 - Essential (primary) hypertension
--- NOTE | 2019-01-06 14:37 | PN ---
Progress Note (short form) - Note Progress Note: Thoracic Surgery: Called re: white out of right lung field. This is likely increase in effusion with secondary mucus plugging. Recommend CT scan of chest. If patient needs drain would ask IR to drain with pigtail or more likely go straight to pleur-x given patient's family's desire for palliation.
--- NOTE | 2019-01-06 16:31 | PN ---
Progress Note, Physician History of Present Illness: events noted thoracic surgery note noted plan for thoracocentesis - Current Medication List Current Medications: Active Medications Acetaminophen (Tylenol -) 650 mg PO Q6H PRN PRN Reason: PAIN LEVEL 1-5 Diltiazem HCl (Cardizem -) 60 mg PO Q6HPO [facility] Last Admin: 01/06/19 12:20 Dose: 60 mg Diltiazem HCl (Cardizem Injection -) 10 mg IVPUSH Q4H PRN PRN Reason: TACHYCARDIA Fluticasone Propionate (Flonase -) 2 spray NS DAILY [facility] Last Admin: 01/06/19 12:15 Dose: 2 spray Furosemide (Lasix Injection -) 40 mg IVPUSH BID@0600,1400 [facility] Last Admin: 01/06/19 16:14 Dose: 40 mg Heparin Sodium (Porcine) (Heparin -) 1,000 unit IVPUSH PRN PRN PRN Reason: Heparin Last Admin: 01/06/19 12:00 Dose: 1,000 unit Heparin Sodium (Porcine) (Heparin -) 5,000 unit IVPUSH PRN PRN PRN Reason: Heparin Metronidazole (Flagyl 500mg Premixed Ivpb -) 500 mg in 100 mls @ 100 mls/hr IVPB Q8H-IV [facility] Last Admin: 01/06/19 09:01 Dose: 100 mls/hr Heparin Sodium/Dextrose (Heparin Infusion -) 25,000 units in 500 mls @ 20 mls/ hr IVPB TITR [facility]BD[facility]; Protocol Last Admin: 01/06/19 13:42 Dose: 1,100 units/hr, 22 mls/hr Magnesium Oxide (Mag-Ox -) 400 mg PO BID [facility] Last Admin: 01/06/19 09:00 Dose: 400 mg Ondansetron HCl (Zofran Injection) 4 mg IVPUSH Q6H PRN PRN Reason: NAUSEA Pantoprazole Sodium (Protonix Iv) 40 mg IVPUSH DAILY [facility] Last Admin: 01/06/19 09:00 Dose: 40 mg Potassium Phos/Sodium Phos (Phos-Nak Packet -) 1 packet PO TID [facility] Last Admin: 01/06/19 15:00 Dose: 1 packet Propranolol HCl (Inderal -) 60 mg PO Q6H [facility] Last Admin: 01/06/19 16:27 Dose: Not Given Propranolol HCl (Inderal Injection -) 1 mg IVPUSH Q1H PRN PRN Reason: TACHYCARDIA - Objective Vital Signs: Vital Signs Temperature 99 F 01/06/19 06:00 Pulse Rate 128 H 01/06/19 14:00 Respiratory Rate 20 01/06/19 14:00 Blood Pressure 94/65 01/06/19 14:00 O2 Sat by Pulse Oximetry (%) 99 01/06/19 10:48 Constitutional: Yes: Calm Cardiovascular: Yes: S1, S2 Respiratory: Yes: Poor Air Entry (rt side nearly absent) Gastrointestinal: Yes: Normal Bowel Sounds, Soft Musculoskeletal: Yes: WNL Extremities: Yes: WNL Neurological: Yes: Alert Psychiatric: Yes: Alert Labs: CBC, BMP 01/06/19 05:30 01/06/19 05:30 INR, PTT INR 1.13 (0.83-1.09) H 12/21/18 09:35 Assessment/Plan - Problems (1) Colon obstruction Code(s): K56.609 - UNSP INTESTNL OBST, UNSP TO PARTIAL VERSUS COMPLETE OBST (2) Atrial fibrillation with RVR Code(s): I48.91 - UNSPECIFIED ATRIAL FIBRILLATION (3) Dementia Code(s): F03.90 - UNSPECIFIED DEMENTIA WITHOUT BEHAVIORAL DISTURBANCE (4) Esophagitis Code(s): K20.9 - ESOPHAGITIS, UNSPECIFIED (5) GERD (gastroesophageal reflux disease) Code(s): K21.9 - GASTRO-ESOPHAGEAL REFLUX DISEASE WITHOUT ESOPHAGITIS (6) Hypertension Code(s): I10 - ESSENTIAL (PRIMARY) HYPERTENSION Qualifiers: Hypertension type: essential hypertension Qualified Code(s): I10 - Essential (primary) hypertension leukocytosis pleural effusion pe pleural effusion has increased plan continue abx await for the thoracocentesis plan thoracic surg on case will see the final plan rest as per the team
[2019-01-07] MEDS: dilTIAZem HCL 60 MG TABLET (FP) PO SCH ×4 (00:12→17:14)
[2019-01-07 06:17] LABS: BASO % 0.4 % (0-2.0); EOS % 0.9 % (0-4.5); HEMATOCRIT 27.5 % (32.4-45.2); HEMOGLOBIN 8.9 GM/dL (10.7-15.3); MCH 24.3 pg (25.7-33.7); MCHC 32.3 g/dl (32.0-36.0); MEAN CELL VOLUME 75.2 fl (80-96); MONO % 11.7 % (3.8-10.2); PLATELET COUNT 454 K/MM3 (134-434); RBC 3.66 M/mm3 (3.60-5.2); RDW 18.7 % (11.6-15.6); WHITE BLOOD COUNT 12.4 K/mm3 (4.0-10.0)
[2019-01-07] MEDS: FUROSEMIDE 40 MG/4 ML INJECTABLE VIAL IVPUSH SCH ×2 (06:44→13:27)
[2019-01-07] MEDS: NAPH,MB-DB/K PH,MBDB POWDER PACKET PO SCH ×3 (06:45→22:02)
[2019-01-07 06:51] LABS: ALBUMIN 1.4 g/dl (3.4-5.0); ALK PHOS 88 U/L (45-117); ANION GAP 9 MMOL/L (8-16); BILIRUBIN,TOTAL 0.4 mg/dL (0.2-1); BLOOD UREA NITROGEN 9 mg/dL (7-18); CALCIUM 7.1 mg/dL (8.5-10.1); CHLORIDE 95 mmol/L (98-107); CO2 30 mmol/L (21-32); CREATININE 0.5 mg/dL (0.55-1.3); GLUCOSE,RANDOM 96 mg/dL (74-106); SGOT/AST 31 U/L (15-37); SGPT/ALT 22 U/L (13-61); SODIUM 134 mmol/L (136-145); TOT PROT 4.5 g/dl (6.4-8.2)
[2019-01-07 06:55] LABS: POTASSIUM 2.9 mmol/L (3.5-5.1)
[2019-01-07] MEDS: KCL 10 MEQ IVPB 10 MEQ/100 ML INFUS.BAG IVPB SCH ×3 (08:21→11:19)
--- NOTE | 2019-01-07 09:27 | PN ---
Physical Exam: SUBJECTIVE: Patient seen and examined at the bedside. awaiting chest ct read tolerating oxygen at 2 liters. no chest pain OBJECTIVE: npo at midnight for possible thoracentesis tomorrow. continue heparin drip until confirm thoracentesis with IR tomorrow postassium dropped to 2.9. repleted with 3 K supplements I called both HCPs Rossana Cruz and Shantell Cruz yesterday. Rossana Cruz is listed at the primary HCP, Shantell as the alternate. Per Rossana Cruz, she would like for us to call her daughter Shantell Cruz for any medical decisions that need to be made on Elham Peguero. Vital Signs Period Temp Pulse Resp BP Sys/Germain Pulse Ox Last 24 Hr 98.1 F-98.1 F 126-128 20-22 89-105/54-65 93-99 GENERAL: The patient is awake, alert, confused, in no acute distress HEAD: Normal with no signs of trauma. EYES: PERRL, extraocular movements intact, sclera anicteric, conjunctiva clear. No ptosis. ENT: Ears normal, nares patent, oropharynx clear without exudates, moist mucous membranes. NECK: Trachea midline, full range of motion, supple. LUNGS: diminished bilaterally, on 2 liters of supplemental oxyen. stable sats, breathing rate 28-30, sob at rest. HEART: sinus tachycardia @120s ABDOMEN: abdominal brook intact, without drainage or redness EXTREMITIES: no edema. NEUROLOGICAL: Normal speech, lower ext weakness PSYCH: Normal mood, normal affect. Laboratory Results - last 24 hr 01/06/19 01/06/19 01/06/19 05:30 05:30 19:22 WBC 14.2 H RBC 3.73 Hgb 9.3 L Hct 28.5 L MCV 76.2 L MCH 25.0 L MCHC 32.8 RDW 18.7 H Plt Count 466 H MPV 8.1 Absolute Neuts (auto) 11.5 H Neutrophils % 80.8 Lymphocytes % 7.6 L D Monocytes % 10.7 H Eosinophils % 0.5 D Basophils % 0.4 Nucleated RBC % 0 PTT (Actin FS) 70.4 H Sodium 134 L Potassium 3.4 L Chloride 96 L Carbon Dioxide 29 Anion Gap 9 BUN 10 Creatinine 0.5 L Creat Clearance w eGFR 117.26 Random Glucose 89 Calcium 7.5 L Total Bilirubin 0.5 AST 48 H ALT 25 Alkaline Phosphatase 95 Total Protein 4.7 L Albumin 1.6 L 01/07/19 01/07/19 01/07/19 05:30 05:30 05:30 WBC 12.4 H RBC 3.66 Hgb 8.9 L Hct 27.5 L MCV 75.2 L MCH 24.3 L MCHC 32.3 RDW 18.7 H Plt Count 454 H MPV 8.0 Absolute Neuts (auto) 9.4 H Neutrophils % 76.0 Lymphocytes % 11.0 D Monocytes % 11.7 H Eosinophils % 0.9 Basophils % 0.4 Nucleated RBC % 0 PTT (Actin FS) 67.5 H Sodium 134 L Potassium 2.9 L* Chloride 95 L Carbon Dioxide 30 Anion Gap 9 BUN 9 Creatinine 0.5 L Creat Clearance w eGFR 117.26 Random Glucose 96 Calcium 7.1 L Total Bilirubin 0.4 AST 31 ALT 22 Alkaline Phosphatase 88 Total Protein 4.5 L Albumin 1.4 L Active Medications Generic Name Dose Route Start Last Admin Trade Name Freq PRN Reason Stop Dose Admin Acetaminophen 650 mg 01/03/19 08:46 Tylenol - PO Q6H PRN PAIN LEVEL 1-5 Diltiazem HCl 60 mg 12/29/18 00:00 01/07/19 06:44 Cardizem - PO 60 mg Q6HPO [facility]BD[facility] Administration Diltiazem HCl 10 mg 12/28/18 20:38 Cardizem Injection - IVPUSH Q4H PRN TACHYCARDIA Fluticasone Propionate 2 spray 12/29/18 10:00 01/06/19 12:15 Flonase - NS 2 spray DAILY [facility] Administration Furosemide 40 mg 01/06/19 06:00 01/07/19 06:44 Lasix Injection - IVPUSH 40 mg BID@0600,1400 [facility] Administration Heparin Sodium (Porcine) 1,000 unit 01/05/19 21:00 01/06/19 12:00 Heparin - IVPUSH 1,000 unit PRN PRN Administration Heparin Heparin Sodium (Porcine) 5,000 unit 01/05/19 21:00 Heparin - IVPUSH PRN PRN Heparin Metronidazole 500 mg in 100 mls @ 100 mls/hr 01/05/19 15:00 01/07/19 02:59 Flagyl 500mg Premixed Ivpb - IVPB 100 mls/hr Q8H-IV [facility] Administration Heparin Sodium/Dextrose 25,000 units in 500 mls @ 20 mls/hr 01/05/19 21:00 22:45 Heparin Infusion - IVPB 1,100 units/hr TITR [facility]BD[facility] 22 mls/hr Administration Protocol 1,000 UNITS/HR Potassium Chloride 10 meq in 100 mls @ 100 mls/hr 01/07/19 08:15 01/07/19 08: 21 Potassium Chloride 10 Meq Premix Ivpb - IVPB 01/07/19 11:14 100 mls/hr Q60M [facility] Administration Magnesium Oxide 400 mg 01/03/19 22:00 01/06/19 22:43 Mag-Ox - PO 400 mg BID [facility] Administration Ondansetron HCl 4 mg 12/28/18 20:38 Zofran Injection IVPUSH Q6H PRN NAUSEA Pantoprazole Sodium 40 mg 12/29/18 10:00 01/06/19 09:00 Protonix Iv IVPUSH 40 mg DAILY [facility] Administration Potassium Phos/Sodium Phos 1 packet 12/28/18 14:00 01/07/19 06:45 Phos-Nak Packet - PO 1 packet TID [facility] Administration Propranolol HCl 60 mg 12/28/18 22:00 01/07/19 03:06 Inderal - PO 60 mg Q6H [facility] Administration Propranolol HCl 1 mg 12/28/18 20:38 Inderal Injection - IVPUSH Q1H PRN TACHYCARDIA ASSESSMENT/PLAN: Patient is an 83 year old female with past medical history of reflux, esophagitis, dementia, hallucinations, ataxia, HTN, benign neoplasm of cerebral meninges, who presents to the emergency department via EMS from long-term due to nausea and vomiting. She was evaluated in the ED and was noted to be with afib with RVR . Patient is a poor historian and confused at baseline. She was mostly recently at [facility] between 12/13/2018 and 12/20/2018 for vomitus with coffee ground emesis. She is s/p EGD which was negative. A colonoscopy was not done secondary to electrolyte imbalance and persistent tachycardia. She was discharged and recommended to follow up with GI outpatient for a colonscopy , however she returned to the ED on the next day for worsening abdominal symptoms. Imaging: Abdominal CT w/o contrast 12/21/18 shows diffuse to moderate marked dilatation of the small bowel including the terminal ileum with significant dilatation of the cecum and proximal ascending colon up to a point of transition seen in the proximal/mid ascending colon where there is suggestion of wall thickening and collapse of the rest of the colon consistent with obstruction. CTA 01/01/19: acute RLL PE, moderate right sided pleural effusion and small to moderate left sided pleural effusion have increased in size. chest xray 01/06/19 with increased right pleural effusion chest cta: 01/05/19: mild dilatation of multiple small bowel loops and mild dilatation of the transverse colon, possible ileus and or partial SBO. development of free fluid is noted. large right pleural effusion. 2.3 cm mild hyperdense left renal cortical structure possibly representing a complex cyst, correlation with sono or MRI suggested. Pulmonary: Pulmonary embolism per CTA. on RLL, acute PE On eliquis, but has been stopped on 01/05 (she received her a.m. dose of eliquis on 01/05) and placed on heparin drip in anticipation of a thoracentesis for increased right pleural effusion. On supplemental oxygen thoracic surgery saw and evaluated patient, recommends IR intervention. Large right pleural effusion/shortness of breath at rest On Lasix IV 40mg BID IR consulted for possible thoracentesis/pleurx catheter pulmonary following GI: Acute bowel obstructions seen on Abd CT. on 12/23/18 had exploratory laparotomy, right toribio colectomy with primary ileotransverse stapled anastomosis. She was found to have obstructing ascending colon mass, now found to have colon cancer. CT scan of abd/pelvis reviewed as noted above. surgery following. Cardiac: Uncontrolled afib with RVR. on propranolol q6, cardizem q q6 Hypertension. controlled. fen tolerating full liquid, advance per surgery Protonix prophy physical therapy SCDs and CHLOE lazar dnr/dni Visit type - Emergency Visit Emergency Visit: Yes ED Registration Date: 12/22/18 Care time: The patient presented to the Emergency Department on the above date and was hospitalized for further evaluation of their emergent condition. - New Patient This patient is new to me today: No - Critical Care Critical Care patient: No - Discharge Referral Referred to [facility] Med P.C.: No
[2019-01-07 09:45] LABS: MAGNESIUM 1.4 mg/dL (1.8-2.4)
--- NOTE | 2019-01-07 10:10 | PN ---
Progress Note (short form) - Note Progress Note: s: no cp sob palps dizzy o: Vital Signs Period Temp Pulse Resp BP Sys/Egrmain Pulse Ox Last 24 Hr 98.1 F-98.1 F 126-128 20-22 94-105/54-65 93-99 nad, no jvd irreg s1s2 no mrg cta bl nl eff awake, alert no jaundice diaphoresis no le e/c/c abd nt nd pos bs Current Medications Acetaminophen (Tylenol -) 650 mg PO Q6H PRN PRN Reason: PAIN LEVEL 1-5 Diltiazem HCl (Cardizem -) 60 mg PO Q6HPO [facility] Last Admin: 01/06/19 06:40 Dose: 60 mg Diltiazem HCl (Cardizem Injection -) 10 mg IVPUSH Q4H PRN PRN Reason: TACHYCARDIA Fluticasone Propionate (Flonase -) 2 spray NS DAILY [facility] Last Admin: 01/05/19 09:52 Dose: 2 spray Furosemide (Lasix Injection -) 40 mg IVPUSH BID@0600,1400 [facility] Last Admin: 01/06/19 06:41 Dose: 40 mg Heparin Sodium (Porcine) (Heparin -) 1,000 unit IVPUSH PRN PRN PRN Reason: Heparin Heparin Sodium (Porcine) (Heparin -) 5,000 unit IVPUSH PRN PRN PRN Reason: Heparin Metronidazole (Flagyl 500mg Premixed Ivpb -) 500 mg in 100 mls @ 100 mls/hr IVPB Q8H-IV [facility] Last Admin: 01/06/19 09:01 Dose: 100 mls/hr Heparin Sodium/Dextrose (Heparin Infusion -) 25,000 units in 500 mls @ 20 mls/ hr IVPB TITR [facility]; Protocol Last Admin: 01/06/19 00:21 Dose: 1,000 units/hr, 20 mls/hr Magnesium Oxide (Mag-Ox -) 400 mg PO BID [facility] Last Admin: 01/06/19 09:00 Dose: 400 mg Ondansetron HCl (Zofran Injection) 4 mg IVPUSH Q6H PRN PRN Reason: NAUSEA Pantoprazole Sodium (Protonix Iv) 40 mg IVPUSH DAILY [facility] Last Admin: 01/06/19 09:00 Dose: 40 mg Potassium Phos/Sodium Phos (Phos-Nak Packet -) 1 packet PO TID [facility] Last Admin: 01/06/19 07:40 Dose: 1 packet Propranolol HCl (Inderal -) 60 mg PO Q6H [facility] Last Admin: 01/06/19 06:39 Dose: 60 mg Propranolol HCl (Inderal Injection -) 1 mg IVPUSH Q1H PRN PRN Reason: TACHYCARDIA ecg: aflutter with 2:1 avb, vr 127, no ischemic changes CXR 12/28: slight incr bilat pulm/pleural changes Echo 12/2018: small LV cavity, hyperdynamic. mild-mod dilated RV, hyperdynamic RVSF. mild ERIK. mild-mod MR (eccentric). RVSP 30-35 CTA chest acute RLL PE, mod R and small left pleural effusions tele: AF/flutter, 120s a/p: 83 f hx dementia, afib/flutter, gerd, htn, tia, sent from [place] for coffee ground emesis. aflutter: - was on diltiazem 60 mg QID and propranolol 120 mg BID at home-->npo postop bowel surgery with tachycardia and hypotensive on levophed-->amio gtt started with persistent tachycardia. hemodynamics improved-->amio d/c'd, prn iv diltiazem ordered - 12/25: H?R 140s, no response to IV diltiazem pushes, SBP dropped to 80s. d/w'd icu team: will start non-chronotropic vasoconstrictor pressor, then initiate low dose PO and IV propranolol trial for HR control. - eliquis held briefly during 12/05 admit with GIB, resumed on discharge with plan for outpt GI scopes. H/H were stable when arrived this time with SBO, eliquis now on hold for surgery - 12/26: HR remains 130s, will increase propranolol to 60 mg QID (home dose is propranolol long acting 120 mg BID). If BP tolerates would restart PO diltiazem as well, at home was on 60 mg QID - 12/27: eliquis resumed, HR 130s. change eliquis to 5 mg BID dosing (age >80 however she is >60 kg and Cr <1.5, does not meet criteria for low dose and was on full dose prior). BP improved today, will restart diltiazem 60 mg Q6H 12/28: HR improved but still fast at times, cont same dilt/inderal for now as bp on low side and monitor on tele. -12/29-: rates good, BPs soft--same meds -01/04-: rvr to 120s at times, pt tolerating and bp low side so cont same rate meds for now -01/07: 3 doses of propranolol held for low BP yesterday, rate 120s, received diltiazem. d/w RN to give propranolol first, monitor BP and give diltiazem if BP stable K 2.9, replete lytes for K >4.0, Mg >2.0 - holding eliquis, on heparin gtt for thoracentesis Pulmonary embolism, pleural effusions, acute diast CHF - pulm congestion on CXR after receiving IVF here, was diuresed - echo with dilated RV (normal function), no signific pulm HTN per TR gradient measurable on that study. Pt at risk for PE given: (1) AC had been held here for several days preop/postop, (2) she has new dx of colon malignancy; (3) she is postop and bedbound. - LE venous dopplers no DVT - CTA chest acute RLL PE - on eliquis - betzy pleural effusions on CTA 01/02- had been getting prn iv lasix - CT abd/pelvis 01/05 shows large R pleural effusion increased in size - now on lasix 40 mg IV BID, plan for thoracentesis htn: -bb/ccb resumed for rate control sbo: -s/p surgery, found to have colon ca, onc following
[2019-01-07] MEDS: FLUTICASONE PROP 0.05% 16 GM NASAL SPRAY NS SCH (10:23)
[2019-01-07] MEDS: MAGNESIUM OXIDE 400 MG TABLET (FP) PO SCH ×2 (10:24→22:02)
[2019-01-07] MEDS: PANTOPRAZOLE SODIUM 40 MG VIAL IVPUSH SCH (10:24)
--- NOTE | 2019-01-07 14:08 | PN ---
Progress Note, Physician History of Present Illness: stable doing well abd soft wbc trending down - Current Medication List Current Medications: Active Medications Acetaminophen (Tylenol -) 650 mg PO Q6H PRN PRN Reason: PAIN LEVEL 1-5 Diltiazem HCl (Cardizem -) 60 mg PO Q6HPO [facility] Last Admin: 01/07/19 12:03 Dose: Not Given Diltiazem HCl (Cardizem Injection -) 10 mg IVPUSH Q4H PRN PRN Reason: TACHYCARDIA Fluticasone Propionate (Flonase -) 2 spray NS DAILY [facility] Last Admin: 01/07/19 10:23 Dose: 2 spray Furosemide (Lasix Injection -) 40 mg IVPUSH BID@0600,1400 [facility] Last Admin: 01/07/19 13:27 Dose: 40 mg Heparin Sodium (Porcine) (Heparin -) 1,000 unit IVPUSH PRN PRN PRN Reason: Heparin Last Admin: 01/06/19 12:00 Dose: 1,000 unit Heparin Sodium (Porcine) (Heparin -) 5,000 unit IVPUSH PRN PRN PRN Reason: Heparin Metronidazole (Flagyl 500mg Premixed Ivpb -) 500 mg in 100 mls @ 100 mls/hr IVPB Q8H-IV [facility] Last Admin: 01/07/19 10:22 Dose: 100 mls/hr Heparin Sodium/Dextrose (Heparin Infusion -) 25,000 units in 500 mls @ 20 mls/ hr IVPB TITR [facility]; Protocol Last Admin: 01/06/19 22:45 Dose: 1,100 units/hr, 22 mls/hr Magnesium Oxide (Mag-Ox -) 400 mg PO BID [facility] Last Admin: 01/07/19 10:24 Dose: 400 mg Ondansetron HCl (Zofran Injection) 4 mg IVPUSH Q6H PRN PRN Reason: NAUSEA Pantoprazole Sodium (Protonix Iv) 40 mg IVPUSH DAILY [facility] Last Admin: 01/07/19 10:24 Dose: 40 mg Potassium Phos/Sodium Phos (Phos-Nak Packet -) 1 packet PO TID [facility] Last Admin: 01/07/19 13:27 Dose: 1 packet Propranolol HCl (Inderal -) 60 mg PO Q6H [facility] Last Admin: 01/07/19 10:43 Dose: 60 mg Propranolol HCl (Inderal Injection -) 1 mg IVPUSH Q1H PRN PRN Reason: TACHYCARDIA - Objective Vital Signs: Vital Signs Temperature 98 F 01/07/19 10:00 Pulse Rate 123 H 01/07/19 14:00 Respiratory Rate 16 01/07/19 14:00 Blood Pressure 97/62 01/07/19 14:00 O2 Sat by Pulse Oximetry (%) 95 01/07/19 08:00 Constitutional: Yes: No Distress, Calm Cardiovascular: Yes: Tachycardia, S1, S2 Respiratory: Yes: Regular, Poor Air Entry Gastrointestinal: Yes: Normal Bowel Sounds, Soft Musculoskeletal: Yes: WNL Extremities: Yes: WNL Neurological: Yes: Alert, Oriented Psychiatric: Yes: Alert, Oriented Labs: CBC, BMP 01/07/19 05:30 01/07/19 05:30 INR, PTT INR 1.13 (0.83-1.09) H 12/21/18 09:35 Assessment/Plan - Problems (1) Colon obstruction Code(s): K56.609 - UNSP INTESTNL OBST, UNSP TO PARTIAL VERSUS COMPLETE OBST (2) Atrial fibrillation with RVR Code(s): I48.91 - UNSPECIFIED ATRIAL FIBRILLATION (3) Dementia Code(s): F03.90 - UNSPECIFIED DEMENTIA WITHOUT BEHAVIORAL DISTURBANCE (4) Esophagitis Code(s): K20.9 - ESOPHAGITIS, UNSPECIFIED (5) GERD (gastroesophageal reflux disease) Code(s): K21.9 - GASTRO-ESOPHAGEAL REFLUX DISEASE WITHOUT ESOPHAGITIS (6) Hypertension Code(s): I10 - ESSENTIAL (PRIMARY) HYPERTENSION Qualifiers: Hypertension type: essential hypertension Qualified Code(s): I10 - Essential (primary) hypertension leukocytosis pleural effusion pe plan continue flagyl patient for possible thoracocentesis tomorrow close watch wbc improving
[2019-01-07] MEDS ORDERED: MAGNESIUM SULF 50% (8.12 MEQ/2 ML-1 GM VIAL) IVPB ONE (18:28)
[2019-01-07] MEDS: HEPARIN INFUSION - 25,000 UNITS/500 ML INFUS.BAG IVPB SCH (22:24)
[2019-01-08] MEDS: dilTIAZem HCL 60 MG TABLET (FP) PO SCH ×4 (00:54→17:44)
[2019-01-08] MEDS ORDERED: PT OWN MED DRAWER 7, Y5N ONE (05:04)
[2019-01-08] MEDS: FUROSEMIDE 40 MG/4 ML INJECTABLE VIAL IVPUSH SCH ×2 (06:28→15:06)
[2019-01-08] MEDS: NAPH,MB-DB/K PH,MBDB POWDER PACKET PO SCH ×3 (06:28→21:27)
[2019-01-08 06:37] LABS: HEMATOCRIT 26.1 % (32.4-45.2); HEMOGLOBIN 8.6 GM/dL (10.7-15.3); MEAN CELL VOLUME 75.6 fl (80-96); MEAN PLT VOLUME 8.3 fl (7.5-11.1); PLATELET COUNT 431 K/MM3 (134-434); RBC 3.45 M/mm3 (3.60-5.2); RDW 18.5 % (11.6-15.6); WHITE BLOOD COUNT 13.6 K/mm3 (4.0-10.0)
[2019-01-08] MEDS ORDERED: DIGOXIN 0.25 MG TABLET (FP) PO ONE (09:12)
--- NOTE | 2019-01-08 09:12 | PN ---
Progress Note, Physician Chief Complaint: abd pain/sbo History of Present Illness: comfortable denies palpit, sob, cp, leg swelling no cigs - Current Medication List Current Medications: Active Medications Acetaminophen (Tylenol -) 650 mg PO Q6H PRN PRN Reason: PAIN LEVEL 1-5 Diltiazem HCl (Cardizem -) 60 mg PO Q6HPO [facility] Last Admin: 01/08/19 06:28 Dose: Not Given Diltiazem HCl (Cardizem Injection -) 10 mg IVPUSH Q4H PRN PRN Reason: TACHYCARDIA Fluticasone Propionate (Flonase -) 2 spray NS DAILY [facility] Last Admin: 01/07/19 10:23 Dose: 2 spray Furosemide (Lasix Injection -) 40 mg IVPUSH BID@0600,1400 [facility] Last Admin: 01/08/19 06:28 Dose: 40 mg Heparin Sodium (Porcine) (Heparin -) 1,000 unit IVPUSH PRN PRN PRN Reason: Heparin Last Admin: 01/06/19 12:00 Dose: 1,000 unit Heparin Sodium (Porcine) (Heparin -) 5,000 unit IVPUSH PRN PRN PRN Reason: Heparin Metronidazole (Flagyl 500mg Premixed Ivpb -) 500 mg in 100 mls @ 100 mls/hr IVPB Q8H-IV [facility] Last Admin: 01/08/19 01:10 Dose: 100 mls/hr Heparin Sodium/Dextrose (Heparin Infusion -) 25,000 units in 500 mls @ 20 mls/ hr IVPB TITR [facility]; Protocol Last Admin: 01/07/19 22:24 Dose: 1,100 units/hr, 22 mls/hr Magnesium Oxide (Mag-Ox -) 400 mg PO BID [facility] Last Admin: 01/07/19 22:02 Dose: 400 mg Ondansetron HCl (Zofran Injection) 4 mg IVPUSH Q6H PRN PRN Reason: NAUSEA Pantoprazole Sodium (Protonix Iv) 40 mg IVPUSH DAILY [facility] Last Admin: 01/07/19 10:24 Dose: 40 mg Potassium Phos/Sodium Phos (Phos-Nak Packet -) 1 packet PO TID [facility] Last Admin: 01/08/19 06:28 Dose: 1 packet Propranolol HCl (Inderal -) 60 mg PO Q6H [facility] Last Admin: 01/08/19 03:42 Dose: 60 mg Propranolol HCl (Inderal Injection -) 1 mg IVPUSH Q1H PRN PRN Reason: TACHYCARDIA - Objective Vital Signs: Vital Signs Temperature 97.8 F 01/08/19 06:00 Pulse Rate 119 H 01/08/19 06:00 Respiratory Rate 18 01/08/19 06:00 Blood Pressure 98/80 01/08/19 06:00 O2 Sat by Pulse Oximetry (%) 95 01/07/19 22:00 Constitutional: Yes: No Distress, Calm Eyes: No: Sclera Icterus HENT: No: Nasal Congestion Cardiovascular: Yes: Pulse Irregular, S1, S2, Other (PMI non diplaced). No: JVD , Gallop, Murmur Respiratory: Yes: CTA Bilaterally, Diminished ( R base). No: Accessory Muscle Use, Rales, Wheezes Gastrointestinal: Yes: Normal Bowel Sounds, Soft. No: Tenderness Musculoskeletal: Yes: Other (No kyphosis) Extremities: No: Cold Edema: No (SCDs) Integumentary: No: Jaundice Neurological: Yes: Alert. No: Seizure Psychiatric: No: Agitated Labs: CBC, BMP 01/08/19 05:30 01/07/19 15:40 INR, PTT INR 1.13 (0.83-1.09) H 12/21/18 09:35 Assessment/Plan Echo 12/2018: small LV cavity, hyperdynamic. mild-mod dilated RV, hyperdynamic RVSF. mild ERIK. mild-mod MR (eccentric). RVSP 30-35 CTA chest acute RLL PE, mod R and small left pleural effusions tele: AF 110s-120ws a/p: 83 f hx dementia, afib/flutter, gerd, htn, tia, sent [place] for coffee ground emesis. aflutter: - was on diltiazem 60 mg QID and propranolol 120 mg BID at home-->npo postop bowel surgery with tachycardia and hypotensive on levophed-->amio gtt started with persistent tachycardia. hemodynamics improved-->amio d/c'd, prn iv diltiazem ordered - 12/25: H?R 140s, no response to IV diltiazem pushes, SBP dropped to 80s. d/w'd icu team: will start non-chronotropic vasoconstrictor pressor, then initiate low dose PO and IV propranolol trial for HR control. - eliquis held briefly during 12/05 admit with GIB, resumed on discharge with plan for outpt GI scopes. H/H were stable when arrived this time with SBO, eliquis now on hold for surgery - 12/26: HR remains 130s, will increase propranolol to 60 mg QID (home dose is propranolol long acting 120 mg BID). If BP tolerates would restart PO diltiazem as well, at home was on 60 mg QID - 12/27: eliquis resumed, HR 130s. change eliquis to 5 mg BID dosing (age >80 however she is >60 kg and Cr <1.5, does not meet criteria for low dose and was on full dose prior). BP improved today, will restart diltiazem 60 mg Q6H 12/28: HR improved but still fast at times, cont same dilt/inderal for now as bp on low side and monitor on tele. -12/29-: rates good, BPs soft--same meds -01/04-: rvr to 120s at times, pt tolerating and bp low side so cont same rate meds for now -01/07: 3 doses of propranolol held for low BP yesterday, rate 120s, received diltiazem. d/w RN to give propranolol first, monitor BP and give diltiazem if BP stable K 2.9, replete lytes for K >4.0, Mg >2.0 -01/08: bp consistently 90s > 80s systolic, rates rapid--start digoxin (may need load if remains tachy later). will plan to start IV amio (no bolus) for rate control if does not respond to digoxin - holding eliquis, on heparin gtt in anticipation of thoracentesis vs pleur-x drainage catheter placement hypotension - ? intravasc contracted (low albumin/low oncotic pressure, on lasix) - deferring pressors at present, given normal mentation Pulmonary embolism, pleural effusions, acute diast CHF, severe hypoalbuminuria: - pulm congestion on CXR after receiving IVF here, was diuresed - echo with dilated RV (normal function), no signific pulm HTN per TR gradient measurable on that study. Pt at risk for PE given: (1) AC had been held here for several days preop/postop, (2) she has new dx of colon malignancy; (3) she is postop and bedbound. - LE venous dopplers no DVT - CTA chest acute RLL PE - on eliquis - betzy pleural effusions on CTA 01/02- had been getting prn iv lasix - CT abd/pelvis 01/05 shows large R pleural effusion increased in size - now on lasix 40 mg IV BID - pleural effusion mgmt per crit care, thoracic surgery sbo, colon mass: -s/p surgery, found to have colon ca, onc following
--- NOTE | 2019-01-08 09:32 | PN ---
Physical Exam: SUBJECTIVE: Patient seen and examined in the tele icu. OBJECTIVE: has been npo at midnight for possible thoracentesis today continue heparin drip until confirm thoracentesis today. spoke to radiology dept and they will inform when heparin to be d/c I called both HCPs Rossana Cruz and Shantell Cruz on Tuesday at 9am. Rossana Cruz is listed at the primary HCP, Shantell as the alternate. Per Rossana Cruz, she would like for us to call her daughter Shantell Cruz for any medical decisions that need to be made on Elham Peguero. Both HCPs are aware and in agreement to a thoracentesis to help Mrs Richter be more comfortable. await todays labs. potassium repleted on 01/08 Vital Signs Period Temp Pulse Resp BP Sys/Germain Pulse Ox Last 24 Hr 97.8 F-98.2 F 119-128 14-21 90-100/49-80 95-95 GENERAL: The patient is awake, alert, confused, in no acute distress HEAD: Normal with no signs of trauma. EYES: PERRL, extraocular movements intact, sclera anicteric, conjunctiva clear. No ptosis. ENT: Ears normal, nares patent, oropharynx clear without exudates, moist mucous membranes. NECK: Trachea midline, full range of motion, supple. LUNGS: diminished right lung, left lung clear, on 2 liters of supplemental oxyen. stable sats, breathing rate 28-30, sob at rest. HEART: sinus tachycardia @120s ABDOMEN: abdominal brook intact, without drainage or redness EXTREMITIES: no edema. NEUROLOGICAL: Normal speech, lower ext weakness PSYCH: Normal mood, normal affect. Laboratory Results - last 24 hr 01/07/19 01/07/19 01/08/19 05:30 15:40 05:30 WBC 13.6 H RBC 3.45 L Hgb 8.6 L Hct 26.1 L MCV 75.6 L MCH 25.0 L MCHC 33.0 RDW 18.5 H Plt Count 431 MPV 8.3 PTT (Actin FS) Potassium 3.4 L Magnesium 1.4 L 01/08/19 05:30 WBC RBC Hgb Hct MCV MCH MCHC RDW Plt Count MPV PTT (Actin FS) 61.2 H Potassium Magnesium Active Medications Generic Name Dose Route Start Last Admin Trade Name Freq PRN Reason Stop Dose Admin Acetaminophen 650 mg 01/03/19 08:46 Tylenol - PO Q6H PRN PAIN LEVEL 1-5 Digoxin 0.125 mg 01/09/19 10:00 Lanoxin - PO DAILY [facility] Diltiazem HCl 60 mg 12/29/18 00:00 01/08/19 06:28 Cardizem - PO Not Given Q6HPO [facility] Diltiazem HCl 10 mg 12/28/18 20:38 Cardizem Injection - IVPUSH Q4H PRN TACHYCARDIA Fluticasone Propionate 2 spray 12/29/18 10:00 01/07/19 10:23 Flonase - NS 2 spray DAILY [facility] Administration Furosemide 40 mg 01/06/19 06:00 01/08/19 06:28 Lasix Injection - IVPUSH 40 mg BID@0600,1400 [facility] Administration Heparin Sodium (Porcine) 1,000 unit 01/05/19 21:00 01/06/19 12:00 Heparin - IVPUSH 1,000 unit PRN PRN Administration Heparin Heparin Sodium (Porcine) 5,000 unit 01/05/19 21:00 Heparin - IVPUSH PRN PRN Heparin Metronidazole 500 mg in 100 mls @ 100 mls/hr 01/05/19 15:00 01/08/19 01:10 Flagyl 500mg Premixed Ivpb - IVPB 100 mls/hr Q8H-IV [facility] Administration Heparin Sodium/Dextrose 25,000 units in 500 mls @ 20 mls/hr 01/05/19 21:00 22:24 Heparin Infusion - IVPB 1,100 units/hr TITR [facility] 22 mls/hr Administration Protocol 1,000 UNITS/HR Magnesium Oxide 400 mg 01/03/19 22:00 01/07/19 22:02 Mag-Ox - PO 400 mg BID [facility] Administration Ondansetron HCl 4 mg 12/28/18 20:38 Zofran Injection IVPUSH Q6H PRN NAUSEA Pantoprazole Sodium 40 mg 12/29/18 10:00 01/07/19 10:24 Protonix Iv IVPUSH 40 mg DAILY [facility] Administration Potassium Phos/Sodium Phos 1 packet 12/28/18 14:00 01/08/19 06:28 Phos-Nak Packet - PO 1 packet TID [facility] Administration Propranolol HCl 60 mg 12/28/18 22:00 01/08/19 03:42 Inderal - PO 60 mg Q6H [facility] Administration Propranolol HCl 1 mg 12/28/18 20:38 Inderal Injection - IVPUSH Q1H PRN TACHYCARDIA ASSESSMENT/PLAN: Patient is an 83 year old female with past medical history of reflux, esophagitis, dementia, hallucinations, ataxia, HTN, benign neoplasm of cerebral meninges, who presents to the emergency department via EMS from longterm due to nausea and vomiting. She was evaluated in the ED and was noted to be with afib with RVR . Patient is a poor historian and confused at baseline. She was mostly recently at [facility] between 12/13/2018 and 12/20/2018 for vomitus with coffee ground emesis. She is s/p EGD which was negative. A colonoscopy was not done secondary to electrolyte imbalance and persistent tachycardia. She was discharged and recommended to follow up with GI outpatient for a colonscopy , however she returned to the ED on the next day for worsening abdominal symptoms. Imaging: Abdominal CT w/o contrast 12/21/18 shows diffuse to moderate marked dilatation of the small bowel including the terminal ileum with significant dilatation of the cecum and proximal ascending colon up to a point of transition seen in the proximal/mid ascending colon where there is suggestion of wall thickening and collapse of the rest of the colon consistent with obstruction. CTA 01/01/19: acute RLL PE, moderate right sided pleural effusion and small to moderate left sided pleural effusion have increased in size. chest xray 01/06/19 with increased right pleural effusion chest cta: 01/05/19: mild dilatation of multiple small bowel loops and mild dilatation of the transverse colon, possible ileus and or partial SBO. development of free fluid is noted. large right pleural effusion. 2.3 cm mild hyperdense left renal cortical structure possibly representing a complex cyst, correlation with sono or MRI suggested. Pulmonary: Pulmonary embolism per CTA. on RLL, acute PE On eliquis, but has been stopped on 01/05 (she received her a.m. dose of eliquis on 01/05) and placed on heparin drip in anticipation of a thoracentesis for increased right pleural effusion. On supplemental oxygen with stable sats. thoracic surgery saw and evaluated patient, recommends IR intervention. Large right pleural effusion/shortness of breath at rest On Lasix IV 40mg BID IR consulted for possible thoracentesis/pleurx catheter pulmonary following monitor renal function. GI: Acute bowel obstructions seen on Abd CT. on 12/23/18 had exploratory laparotomy, right toribio colectomy with primary ileotransverse stapled anastomosis. She was found to have obstructing ascending colon mass, now found to have colon cancer. CT scan of abd/pelvis reviewed as noted above. surgery and oncology following. Cardiac: Uncontrolled afib with RVR. on propranolol q6, cardizem q q6 Hypertension. controlled. fen tolerating full liquid, advance per surgery Protonix prophy physical therapy SCDs and CHLOE stockings dnr/dni Visit type - Emergency Visit Emergency Visit: Yes ED Registration Date: 12/22/18 Care time: The patient presented to the Emergency Department on the above date and was hospitalized for further evaluation of their emergent condition. - New Patient This patient is new to me today: No - Critical Care Critical Care patient: No - Discharge Referral Referred to [facility] Med P.C.: No
[2019-01-08] MEDS ORDERED: KCL 10 MEQ IVPB 10 MEQ/100 ML INFUS.BAG IVPB SCH (09:45)
[2019-01-08] MEDS: PANTOPRAZOLE SODIUM 40 MG VIAL IVPUSH SCH (09:46)
[2019-01-08] MEDS: MAGNESIUM OXIDE 400 MG TABLET (FP) PO SCH ×2 (09:50→21:27)
[2019-01-08] MEDS: FLUTICASONE PROP 0.05% 16 GM NASAL SPRAY NS SCH (09:56)
[2019-01-08 11:57] LABS: ALBUMIN 1.4 g/dl (3.4-5.0); ALK PHOS 78 U/L (45-117); ANION GAP 8 MMOL/L (8-16); BILIRUBIN,TOTAL 0.3 mg/dL (0.2-1); BLOOD UREA NITROGEN 7 mg/dL (7-18); CALCIUM 7.2 mg/dL (8.5-10.1); CHLORIDE 92 mmol/L (98-107); CO2 33 mmol/L (21-32); CREATININE 0.5 mg/dL (0.55-1.3); GLUCOSE,RANDOM 98 mg/dL (74-106); MAGNESIUM 1.6 mg/dL (1.8-2.4); POTASSIUM 3.1 mmol/L (3.5-5.1); SGOT/AST 20 U/L (15-37); SGPT/ALT 17 U/L (13-61); SODIUM 133 mmol/L (136-145); TOT PROT 4.4 g/dl (6.4-8.2)
[2019-01-08 11:59] LABS: BASO % 1.2 % (0-2.0); LYMPH % 10.7 % (8-40); MONO % 11.8 % (3.8-10.2); NEUT % 75.3 % (42.8-82.8)
[2019-01-08] MEDS ORDERED: MAGNESIUM SULF 50% (8.12 MEQ/2 ML-1 GM VIAL) IVPB ONE (12:24)
--- NOTE | 2019-01-08 14:00 | PN ---
Progress Note (short form) - Note Progress Note: Resting in NAD. Denies shortness of breath or chest pain. Intake & Output 01/05/19 01/06/19 01/07/19 01/08/19 23:59 23:59 23:59 23:59 Intake Total 780 464 50 464 Balance 780 464 50 464 Weight 139 lb 7 oz Last Vital Signs Temp Pulse Resp BP Pulse Ox 97.8 F 124 H 18 87/58 L 95 01/08/19 06:00 01/08/19 10:00 01/08/19 10:00 01/08/19 10:00 01/07/19 22:00 Active Medications Acetaminophen (Tylenol -) 650 mg PO Q6H PRN PRN Reason: PAIN LEVEL 1-5 Digoxin (Lanoxin -) 0.125 mg PO DAILY [facility] Diltiazem HCl (Cardizem -) 60 mg PO Q6HPO [facility] Last Admin: 01/08/19 06:28 Dose: Not Given Diltiazem HCl (Cardizem Injection -) 10 mg IVPUSH Q4H PRN PRN Reason: TACHYCARDIA Fluticasone Propionate (Flonase -) 2 spray NS DAILY [facility] Last Admin: 01/08/19 09:56 Dose: 2 spray Furosemide (Lasix Injection -) 40 mg IVPUSH BID@0600,1400 [facility] Last Admin: 01/08/19 06:28 Dose: 40 mg Heparin Sodium (Porcine) (Heparin -) 1,000 unit IVPUSH PRN PRN PRN Reason: Heparin Last Admin: 01/06/19 12:00 Dose: 1,000 unit Heparin Sodium (Porcine) (Heparin -) 5,000 unit IVPUSH PRN PRN PRN Reason: Heparin Metronidazole (Flagyl 500mg Premixed Ivpb -) 500 mg in 100 mls @ 100 mls/hr IVPB Q8H-IV [facility] Last Admin: 01/08/19 09:53 Dose: 100 mls/hr Heparin Sodium/Dextrose (Heparin Infusion -) 25,000 units in 500 mls @ 20 mls/ hr IVPB TITR [facility]; Protocol Last Admin: 01/07/19 22:24 Dose: 1,100 units/hr, 22 mls/hr Potassium Chloride (Potassium Chloride 10 Meq Premix Ivpb -) 10 meq in 100 mls @ 100 mls/hr IVPB Q60M [facility] Stop: 01/08/19 14:29 Magnesium Oxide (Mag-Ox -) 400 mg PO BID [facility] Last Admin: 01/08/19 09:50 Dose: 400 mg Ondansetron HCl (Zofran Injection) 4 mg IVPUSH Q6H PRN PRN Reason: NAUSEA Pantoprazole Sodium (Protonix Iv) 40 mg IVPUSH DAILY [facility] Last Admin: 01/08/19 09:46 Dose: 40 mg Potassium Phos/Sodium Phos (Phos-Nak Packet -) 1 packet PO TID [facility] Last Admin: 01/08/19 06:28 Dose: 1 packet Propranolol HCl (Inderal -) 60 mg PO Q6H [facility] Last Admin: 01/08/19 09:54 Dose: Not Given Propranolol HCl (Inderal Injection -) 1 mg IVPUSH Q1H PRN PRN Reason: TACHYCARDIA Gen: NAD at rest Heart: tachycardic Lung: decreased breath sounds at the bases Abd: soft, nontender Ext: no edema Laboratory Results - last 24 hr 01/07/19 01/08/19 01/08/19 15:40 05:30 05:30 WBC 13.6 H RBC 3.45 L Hgb 8.6 L Hct 26.1 L MCV 75.6 L MCH 25.0 L MCHC 33.0 RDW 18.5 H Plt Count 431 MPV 8.3 Absolute Neuts (auto) 10.3 H Total Counted Cancelled Neutrophils % 75.3 Neutrophils % (Manual) Cancelled Band Neutrophils % Cancelled Lymphocytes % 10.7 Lymphocytes % (Manual) Cancelled Monocytes % 11.8 H Monocytes % (Manual) Cancelled Eosinophils % 1.0 Eosinophils % (Manual) Cancelled Basophils % 1.2 Basophils % (Manual) Cancelled Myelocytes % (Man) Cancelled Promyelocytes % (Man) Cancelled Blast Cells % (Manual) Cancelled Nucleated RBC % 0 Metamyelocytes Cancelled Differential Comment Cancelled Hypersegmented Neuts Cancelled Plasma Cells Cancelled Smudge Cells Cancelled Other Cell Type Cancelled Hypochromia Cancelled Toxic Granulation Cancelled Dohle Bodies Cancelled Platelet Comment Cancelled Polychromasia Cancelled Poikilocytosis Cancelled Basophilic Stippling Cancelled Anisocytosis Cancelled Microcytosis Cancelled Macrocytosis Cancelled Spherocytes Cancelled Siderocytes Cancelled Sickle Cells Cancelled Target Cells Cancelled Tear Drop Cells Cancelled Ovalocytes Cancelled Stomatocytes Cancelled Helmet Cells Cancelled Rosenthal-Bellemeade Bodies Cancelled Waves Rings Cancelled Tesfaye Cells Cancelled Acanthocytes (Spur) Cancelled Rouleaux Cancelled Fragmented RBCs Cancelled Schistocytes Cancelled PTT (Actin FS) 61.2 H Sodium Potassium 3.4 L Chloride Carbon Dioxide Anion Gap BUN Creatinine Creat Clearance w eGFR Random Glucose Calcium Magnesium Total Bilirubin AST ALT Alkaline Phosphatase Total Protein Albumin 01/08/19 05:30 WBC RBC Hgb Hct MCV MCH MCHC RDW Plt Count MPV Absolute Neuts (auto) Total Counted Neutrophils % Neutrophils % (Manual) Band Neutrophils % Lymphocytes % Lymphocytes % (Manual) Monocytes % Monocytes % (Manual) Eosinophils % Eosinophils % (Manual) Basophils % Basophils % (Manual) Myelocytes % (Man) Promyelocytes % (Man) Blast Cells % (Manual) Nucleated RBC % Metamyelocytes Differential Comment Hypersegmented Neuts Plasma Cells Smudge Cells Other Cell Type Hypochromia Toxic Granulation Dohle Bodies Platelet Comment Polychromasia Poikilocytosis Basophilic Stippling Anisocytosis Microcytosis Macrocytosis Spherocytes Siderocytes Sickle Cells Target Cells Tear Drop Cells Ovalocytes Stomatocytes Helmet Cells Rosenthal-Bellemeade Bodies Waves Rings Marceline Cells Acanthocytes (Spur) Rouleaux Fragmented RBCs Schistocytes PTT (Actin FS) Sodium 133 L Potassium 3.1 L Chloride 92 L Carbon Dioxide 33 H Anion Gap 8 BUN 7 Creatinine 0.5 L Creat Clearance w eGFR 117.26 Random Glucose 98 Calcium 7.2 L Magnesium 1.6 L Total Bilirubin 0.3 AST 20 ALT 17 Alkaline Phosphatase 78 Total Protein 4.4 L Albumin 1.4 L A/P Large Bowel Obstruction/Ascending Colon Mass Newly Diagnosed Colon Ca s/p ex-lap/right hemicolectomy/primary ileotransverse anastamosis Atrial Fibrillation/Flutter with RVR Acute RLL Pulmonary Embolism HTN GERD Dementia - pain control - incentive spirometry - rate control per cardiology - continue anticoagulation - PO as tolerated - ABX per ID Dr Monroe
[2019-01-08] MEDS: KCL 10 MEQ IVPB 10 MEQ/100 ML INFUS.BAG IVPB SCH ×2 (14:06→15:08)
[2019-01-08] MEDS ORDERED: traMADol HCL 50 MG TABLET PO PRN (17:44)
[2019-01-08] MEDS ORDERED: traMADol HCL 50 MG TABLET PO ONE (17:45)
--- NOTE | 2019-01-08 18:40 | PN ---
Progress Note, Physician Chief Complaint: LBO History of Present Illness: 83 yo female PMH reflux, esophagitis, dementia, hallucinations, ataxia, HTN, benign neoplasm of cerebral meninges, who presents to the emergency department via EMS from [place] due to nausea and vomiting that started today. She has been stable since surgery. - Current Medication List Current Medications: Active Medications Acetaminophen (Tylenol -) 650 mg PO Q6H PRN PRN Reason: PAIN LEVEL 1-5 Digoxin (Lanoxin -) 0.125 mg PO DAILY [facility] Diltiazem HCl (Cardizem -) 60 mg PO Q6HPO [facility] Last Admin: 01/08/19 17:44 Dose: Not Given Diltiazem HCl (Cardizem Injection -) 10 mg IVPUSH Q4H PRN PRN Reason: TACHYCARDIA Fluticasone Propionate (Flonase -) 2 spray NS DAILY [facility] Last Admin: 01/08/19 09:56 Dose: 2 spray Furosemide (Lasix Injection -) 40 mg IVPUSH BID@0600,1400 [facility] Last Admin: 01/08/19 15:06 Dose: 40 mg Heparin Sodium (Porcine) (Heparin -) 1,000 unit IVPUSH PRN PRN PRN Reason: Heparin Last Admin: 01/06/19 12:00 Dose: 1,000 unit Heparin Sodium (Porcine) (Heparin -) 5,000 unit IVPUSH PRN PRN PRN Reason: Heparin Metronidazole (Flagyl 500mg Premixed Ivpb -) 500 mg in 100 mls @ 100 mls/hr IVPB Q8H-IV [facility] Last Admin: 01/08/19 17:48 Dose: 100 mls/hr Heparin Sodium/Dextrose (Heparin Infusion -) 25,000 units in 500 mls @ 20 mls/ hr IVPB TITR [facility]; Protocol Last Admin: 01/07/19 22:24 Dose: 1,100 units/hr, 22 mls/hr Magnesium Oxide (Mag-Ox -) 400 mg PO BID [facility] Last Admin: 01/08/19 09:50 Dose: 400 mg Ondansetron HCl (Zofran Injection) 4 mg IVPUSH Q6H PRN PRN Reason: NAUSEA Pantoprazole Sodium (Protonix Iv) 40 mg IVPUSH DAILY [facility] Last Admin: 01/08/19 09:46 Dose: 40 mg Potassium Phos/Sodium Phos (Phos-Nak Packet -) 1 packet PO TID [facility] Last Admin: 01/08/19 15:06 Dose: 1 packet Propranolol HCl (Inderal -) 60 mg PO Q6H [facility] Last Admin: 01/08/19 15:06 Dose: Not Given Propranolol HCl (Inderal Injection -) 1 mg IVPUSH Q1H PRN PRN Reason: TACHYCARDIA Tramadol HCl (Ultram -) 50 mg PO Q6H PRN PRN Reason: PAIN LEVEL 7 - 10 - Objective Vital Signs: Vital Signs Temperature 97.1 F L 01/08/19 17:53 Pulse Rate 126 H 01/08/19 17:53 Respiratory Rate 21 H 01/08/19 17:53 Blood Pressure 88/49 L 01/08/19 17:53 O2 Sat by Pulse Oximetry (%) 95 01/08/19 09:00 Vital Signs Period Temp Pulse Resp BP Sys/Germain Pulse Ox Last 24 Hr 97.1 F-98.2 F 119-126 14-25 87-102/49-80 95-95 Intake & Output 01/08/19 01/08/19 01/08/19 07:59 15:59 23:59 Intake Total 464 Balance 464 Weight 139 lb 7 oz Intake: IV 264 HEPARIN INFUSION - 25,000 264 units In 500 ml @ 1,000 UNITS/HR 20 mls/hr IVPB TITR [facility] Rx#:[id number] IVPB 200 Oral 0 Other: Voiding Method Incontinent # Unmeasured Voids Void 2 Bowel Movement Yes # Bowel Movements 1 Weight Measurement Method Built in [facility] Constitutional: Yes: Well Nourished, No Distress, Calm, Thin Eyes: Yes: Conjunctiva Clear, EOM Intact HENT: Yes: Atraumatic, Normocephalic Neck: Yes: Supple, Trachea Midline Cardiovascular: Yes: Regular Rate and Rhythm, S1, S2 Respiratory: Yes: Regular, CTA Bilaterally Gastrointestinal: Yes: Normal Bowel Sounds, Soft. No: Tenderness Genitourinary: No: CVA Tenderness - Left, CVA Tenderness - Right Breast(s): No: Discharge from Nipple, Skin Changes Musculoskeletal: No: Muscle Pain, Muscle Weakness Extremities: No: Cool, Cyanosis Edema: No Peripheral Pulses WNL: Yes Peripheral Pulses: Left Radial: 2+, Right Radial: 2+, Left Doralis Pedis: 2+, Right Dorsalis Pedis: 2+, Left Femoral: 2+, Right Femoral: 2+ Integumentary: No: Erythema, Jaundice, Rash Wound/Incision: Yes: Clean/Dry, Well Approximated, Open to air, Branden Removed Neurological: Yes: Alert, Confusion. No: Oriented Psychiatric: Yes: Alert. No: Oriented Labs: CBC, BMP 01/08/19 05:30 01/08/19 05:30 INR, PTT INR 1.13 (0.83-1.09) H 12/21/18 09:35 Problem List - Problems (1) Colon obstruction Assessment/Plan: 83yo [place] returned [place] the next morning after discharge with feculent emesis and an identified large bowel obstruction suspicious for malignancy. this may be a missed diagnosis from previous admission. POD#12 s/p Right hemicolectomy for an obstructing colon mass Diet as tolerated IVF hydration IV antibiotics per ID trend labs Early mobilization OOB encourage IS ID consult for continued antibiotics This patient is critically ill. Time spent reviewing chart, examining patient, talking with providers and/or family and documentation is 35 minutes. Code(s): K56.609 - UNSP INTESTNL OBST, UNSP TO PARTIAL VERSUS COMPLETE OBST (2) Atrial fibrillation with RVR Code(s): I48.91 - UNSPECIFIED ATRIAL FIBRILLATION (3) Dementia Code(s): F03.90 - UNSPECIFIED DEMENTIA WITHOUT BEHAVIORAL DISTURBANCE (4) Esophagitis Code(s): K20.9 - ESOPHAGITIS, UNSPECIFIED (5) GERD (gastroesophageal reflux disease) Code(s): K21.9 - GASTRO-ESOPHAGEAL REFLUX DISEASE WITHOUT ESOPHAGITIS (6) Hypertension Code(s): I10 - ESSENTIAL (PRIMARY) HYPERTENSION Qualifiers: Hypertension type: essential hypertension Qualified Code(s): I10 - Essential (primary) hypertension
[2019-01-08 18:48] LABS: BODY FLUID BASOPHIL 0 %; BODY FLUID MESOTHELIAL 2 %; BODY FLUID MONOCYTE 0 %; BODYL FLD EOSINOPHIL 3 %
[2019-01-08 19:14] LABS: BASO % 0.2 % (0-2.0); EOS % 0.3 % (0-4.5); HEMATOCRIT 28.5 % (32.4-45.2); HEMOGLOBIN 9.2 GM/dL (10.7-15.3); LYMPH % 8.3 % (8-40); MCH 24.4 pg (25.7-33.7); MCHC 32.2 g/dl (32.0-36.0); MEAN CELL VOLUME 75.6 fl (80-96); MEAN PLT VOLUME 8.3 fl (7.5-11.1); MONO % 10.1 % (3.8-10.2); NEUT % 81.1 % (42.8-82.8); PLATELET COUNT 463 K/MM3 (134-434); RBC 3.77 M/mm3 (3.60-5.2); RDW 18.5 % (11.6-15.6); WHITE BLOOD COUNT 14.3 K/mm3 (4.0-10.0)
[2019-01-08 19:29] LABS: ALBUMIN 1.4 g/dl (3.4-5.0); ALK PHOS 74 U/L (45-117); ANION GAP 5 MMOL/L (8-16); BILIRUBIN,TOTAL 0.3 mg/dL (0.2-1); BLOOD UREA NITROGEN 7 mg/dL (7-18); CHLORIDE 93 mmol/L (98-107); CO2 33 mmol/L (21-32); CREATININE 0.5 mg/dL (0.55-1.3); GLUCOSE,RANDOM 95 mg/dL (74-106); POTASSIUM 3.8 mmol/L (3.5-5.1); SGOT/AST 21 U/L (15-37); SGPT/ALT 15 U/L (13-61); SODIUM 132 mmol/L (136-145); TOT PROT 4.2 g/dl (6.4-8.2)
[2019-01-08] MEDS: HEPARIN INFUSION - 25,000 UNITS/500 ML INFUS.BAG IVPB SCH (23:07)
[2019-01-09] MEDS: dilTIAZem HCL 60 MG TABLET (FP) PO SCH ×4 (00:05→17:21)
[2019-01-09] MEDS: FUROSEMIDE 40 MG/4 ML INJECTABLE VIAL IVPUSH SCH ×2 (05:31→14:44)
[2019-01-09] MEDS: NAPH,MB-DB/K PH,MBDB POWDER PACKET PO SCH ×3 (06:12→22:47)
[2019-01-09 06:56] LABS: HEMATOCRIT 25.4 % (32.4-45.2); HEMOGLOBIN 8.1 GM/dL (10.7-15.3); MCHC 31.7 g/dl (32.0-36.0); MEAN CELL VOLUME 75.5 fl (80-96); MEAN PLT VOLUME 8.2 fl (7.5-11.1); PLATELET COUNT 411 K/MM3 (134-434); RBC 3.37 M/mm3 (3.60-5.2); RDW 18.7 % (11.6-15.6); WHITE BLOOD COUNT 13.2 K/mm3 (4.0-10.0)
[2019-01-09 08:45] LABS: ALBUMIN 1.2 g/dl (3.4-5.0); ALK PHOS 66 U/L (45-117); ANION GAP 8 MMOL/L (8-16); BILIRUBIN,TOTAL 0.4 mg/dL (0.2-1); BLOOD UREA NITROGEN 7 mg/dL (7-18); CALCIUM 7.3 mg/dL (8.5-10.1); CHLORIDE 92 mmol/L (98-107); CO2 32 mmol/L (21-32); CREATININE 0.5 mg/dL (0.55-1.3); GLUCOSE,RANDOM 72 mg/dL (74-106); POTASSIUM 3.3 mmol/L (3.5-5.1); SGOT/AST 12 U/L (15-37); SGPT/ALT 12 U/L (13-61); SODIUM 133 mmol/L (136-145); TOT PROT 3.8 g/dl (6.4-8.2)
--- NOTE | 2019-01-09 09:18 | PN ---
Progress Note (short form) - Note Progress Note: Chief Complaint: abd pain/sbo History of Present Illness: no chest pain, palps, dizziness. s/p chest tube. no cigs Current Medications Acetaminophen (Tylenol -) 650 mg PO Q6H PRN PRN Reason: PAIN LEVEL 1-5 Digoxin (Lanoxin -) 0.125 mg PO DAILY [facility] Diltiazem HCl (Cardizem -) 60 mg PO Q6HPO [facility] Last Admin: 01/09/19 05:31 Dose: Not Given Diltiazem HCl (Cardizem Injection -) 10 mg IVPUSH Q4H PRN PRN Reason: TACHYCARDIA Fluticasone Propionate (Flonase -) 2 spray NS DAILY [facility] Last Admin: 01/08/19 09:56 Dose: 2 spray Furosemide (Lasix Injection -) 40 mg IVPUSH BID@0600,1400 [facility] Last Admin: 01/09/19 05:31 Dose: Not Given Heparin Sodium (Porcine) (Heparin -) 1,000 unit IVPUSH PRN PRN PRN Reason: Heparin Last Admin: 01/06/19 12:00 Dose: 1,000 unit Heparin Sodium (Porcine) (Heparin -) 5,000 unit IVPUSH PRN PRN PRN Reason: Heparin Last Admin: 01/08/19 23:07 Dose: 5,000 unit Metronidazole (Flagyl 500mg Premixed Ivpb -) 500 mg in 100 mls @ 100 mls/hr IVPB Q8H-IV [facility] Last Admin: 01/09/19 01:12 Dose: 100 mls/hr Heparin Sodium/Dextrose (Heparin Infusion -) 25,000 units in 500 mls @ 20 mls/ hr IVPB TITR [facility]; Protocol Last Admin: 01/08/19 23:07 Dose: 1,250 units/hr, 25 mls/hr Magnesium Oxide (Mag-Ox -) 400 mg PO BID [facility] Last Admin: 01/08/19 21:27 Dose: 400 mg Ondansetron HCl (Zofran Injection) 4 mg IVPUSH Q6H PRN PRN Reason: NAUSEA Pantoprazole Sodium (Protonix Iv) 40 mg IVPUSH DAILY [facility] Last Admin: 01/08/19 09:46 Dose: 40 mg Potassium Phos/Sodium Phos (Phos-Nak Packet -) 1 packet PO TID [facility] Last Admin: 01/09/19 06:12 Dose: 1 packet Propranolol HCl (Inderal -) 60 mg PO Q6H [facility] Last Admin: 01/09/19 04:04 Dose: Not Given Propranolol HCl (Inderal Injection -) 1 mg IVPUSH Q1H PRN PRN Reason: TACHYCARDIA Tramadol HCl (Ultram -) 50 mg PO Q6H PRN PRN Reason: PAIN LEVEL 7 - 10 - Objective Vital Signs: Vital Signs Period Temp Pulse Resp BP Sys/Germain Pulse Ox Last 24 Hr 97.1 F-98.3 F 122-127 15-25 87-98/49-61 98-98 Constitutional: Yes: No Distress, Calm Eyes: No: Sclera Icterus HENT: No: Nasal Congestion Cardiovascular: Yes: Pulse Irregular, S1, S2, Other (PMI non diplaced). No: JVD , Gallop, Murmur Respiratory: Yes: CTA Bilaterally, Diminished ( R base). No: Accessory Muscle Use, Rales, Wheezes Gastrointestinal: Yes: Normal Bowel Sounds, Soft. No: Tenderness Musculoskeletal: Yes: Other (No kyphosis) Extremities: No: Cold Edema: No (SCDs) Integumentary: No: Jaundice Neurological: Yes: Alert. No: Seizure Psychiatric: No: Agitated Assessment/Plan Echo 12/2018: small LV cavity, hyperdynamic. mild-mod dilated RV, hyperdynamic RVSF. mild ERIK. mild-mod MR (eccentric). RVSP 30-35 CTA chest acute RLL PE, mod R and small left pleural effusions tele: AF 110s-120s a/p: 83 f hx dementia, afib/flutter, gerd, htn, tia, sent from pr for coffee ground emesis. aflutter: - was on diltiazem 60 mg QID and propranolol 120 mg BID at home-->npo postop bowel surgery with tachycardia and hypotensive on levophed-->amio gtt started with persistent tachycardia. hemodynamics improved-->amio d/c'd, prn iv diltiazem ordered - 12/25: H?R 140s, no response to IV diltiazem pushes, SBP dropped to 80s. d/w'd icu team: will start non-chronotropic vasoconstrictor pressor, then initiate low dose PO and IV propranolol trial for HR control. - eliquis held briefly during 12/05 admit with GIB, resumed on discharge with plan for outpt GI scopes. H/H were stable when arrived this time with SBO, eliquis now on hold for surgery - 12/26: HR remains 130s, will increase propranolol to 60 mg QID (home dose is propranolol long acting 120 mg BID). If BP tolerates would restart PO diltiazem as well, at home was on 60 mg QID - 12/27: eliquis resumed, HR 130s. change eliquis to 5 mg BID dosing (age >80 however she is >60 kg and Cr <1.5, does not meet criteria for low dose and was on full dose prior). BP improved today, will restart diltiazem 60 mg Q6H 12/28: HR improved but still fast at times, cont same dilt/inderal for now as bp on low side and monitor on tele. -12/29-: rates good, BPs soft--same meds -01/04-: rvr to 120s at times, pt tolerating and bp low side so cont same rate meds for now -01/07: 3 doses of propranolol held for low BP yesterday, rate 120s, received diltiazem. d/w RN to give propranolol first, monitor BP and give diltiazem if BP stable K 2.9, replete lytes for K >4.0, Mg >2.0 -01/08: bp consistently 90s > 80s systolic, rates rapid--start digoxin (may need load if remains tachy later). will plan to start IV amio (no bolus) for rate control if does not respond to digoxin -01/09: did not receive propranolol or diltiazem due to low BP yesterday, HR remains 120s on digoxin. start amiodarone gtt - holding eliquis, on heparin gtt in anticipation of thoracentesis vs pleur-x drainage catheter placement hypotension - ? intravasc contracted (low albumin/low oncotic pressure, on lasix) - deferring pressors at present, given normal mentation Pulmonary embolism, pleural effusions, acute diast CHF, severe hypoalbuminuria: - pulm congestion on CXR after receiving IVF here, was diuresed - echo with dilated RV (normal function), no signific pulm HTN per TR gradient measurable on that study. Pt at risk for PE given: (1) AC had been held here for several days preop/postop, (2) she has new dx of colon malignancy; (3) she is postop and bedbound. - LE venous dopplers no DVT - CTA chest acute RLL PE - on eliquis - betzy pleural effusions on CTA 01/02- had been getting prn iv lasix - CT abd/pelvis 01/05 shows large R pleural effusion increased in size - now on lasix 40 mg IV BID, continue - pleural effusion mgmt per crit care, thoracic surgery, s/p chest tube with 1200 cc serosanguinous drainage sbo, colon mass: -s/p surgery, found to have colon ca, onc following
[2019-01-09] MEDS: PANTOPRAZOLE SODIUM 40 MG VIAL IVPUSH SCH (09:46)
[2019-01-09] MEDS: MAGNESIUM OXIDE 400 MG TABLET (FP) PO SCH ×2 (09:47→22:46)
--- NOTE | 2019-01-09 09:47 | PN ---
Physical Exam: SUBJECTIVE: Patient seen and examined. She is comfortable lying in bed. She denies pain, SOB, palpitations. OBJECTIVE: Vital Signs Period Temp Pulse Resp BP Sys/Germain Pulse Ox Last 24 Hr 97.1 F-98.3 F 122-127 87-98/49-61 98-98 GENERAL: The patient is awake, alert, confused, in no acute distress. LUNGS: Breath sounds equal, clear to auscultation bilaterally, no wheezes, no crackles, no accessory muscle use. HEART: Regular rate and rhythm, S1 S2 without murmur, rub or gallop. ABDOMEN: Soft, nontender, nondistended, normoactive bowel sounds, no guarding, no rebound, no hepatosplenomegaly, no masses. EXTREMITIES: 2+ pulses, warm, well-perfused, no edema. Laboratory Results - last 24 hr 01/08/19 01/08/19 01/08/19 05:30 05:30 15:30 WBC 13.6 H RBC 3.45 L Hgb 8.6 L Hct 26.1 L MCV 75.6 L MCH 25.0 L MCHC 33.0 RDW 18.5 H Plt Count 431 MPV 8.3 Absolute Neuts (auto) 10.3 H Total Counted Cancelled Neutrophils % 75.3 Neutrophils % (Manual) Cancelled Band Neutrophils % Cancelled Lymphocytes % 10.7 Lymphocytes % (Manual) Cancelled Monocytes % 11.8 H Monocytes % (Manual) Cancelled Eosinophils % 1.0 Eosinophils % (Manual) Cancelled Basophils % 1.2 Basophils % (Manual) Cancelled Myelocytes % (Man) Cancelled Promyelocytes % (Man) Cancelled Blast Cells % (Manual) Cancelled Nucleated RBC % 0 Metamyelocytes Cancelled Differential Comment Cancelled Hypersegmented Neuts Cancelled Plasma Cells Cancelled Smudge Cells Cancelled Other Cell Type Cancelled Hypochromia Cancelled Toxic Granulation Cancelled Dohle Bodies Cancelled Platelet Comment Cancelled Polychromasia Cancelled Poikilocytosis Cancelled Basophilic Stippling Cancelled Anisocytosis Cancelled Microcytosis Cancelled Macrocytosis Cancelled Spherocytes Cancelled Siderocytes Cancelled Sickle Cells Cancelled Target Cells Cancelled Tear Drop Cells Cancelled Ovalocytes Cancelled Stomatocytes Cancelled Helmet Cells Cancelled [place] Bodies Cancelled [place] Rings Cancelled [place] Cells Cancelled Acanthocytes (Spur) Cancelled Rouleaux Cancelled Fragmented RBCs Cancelled Schistocytes Cancelled PTT (Actin FS) Sodium 133 L Potassium 3.1 L Chloride 92 L Carbon Dioxide 33 H Anion Gap 8 BUN 7 Creatinine 0.5 L Creat Clearance w eGFR 117.26 Random Glucose 98 Calcium 7.2 L Magnesium 1.6 L Total Bilirubin 0.3 AST 20 ALT 17 Alkaline Phosphatase 78 Total Protein 4.4 L Albumin 1.4 L Fluid Source Pleural Fluid WBC 3,017 Fluid RBC 41,670 Fluid Neutrophils 84 Fluid Lymphocytes 13 Pleural Monocytes 0 Pleural Eosinophils 3 Pleural Basophils 0 Pleural Mesothelial 2 01/08/19 01/08/19 01/08/19 18:25 18:25 22:30 WBC 14.3 H RBC 3.77 Hgb 9.2 L Hct 28.5 L MCV 75.6 L MCH 24.4 L MCHC 32.2 RDW 18.5 H Plt Count 463 H MPV 8.3 Absolute Neuts (auto) 11.6 H Total Counted Neutrophils % 81.1 Neutrophils % (Manual) Band Neutrophils % Lymphocytes % 8.3 D Lymphocytes % (Manual) Monocytes % 10.1 Monocytes % (Manual) Eosinophils % 0.3 Eosinophils % (Manual) Basophils % 0.2 Basophils % (Manual) Myelocytes % (Man) Promyelocytes % (Man) Blast Cells % (Manual) Nucleated RBC % 0 Metamyelocytes Differential Comment Hypersegmented Neuts Plasma Cells Smudge Cells Other Cell Type Hypochromia Toxic Granulation Dohle Bodies Platelet Comment Polychromasia Poikilocytosis Basophilic Stippling Anisocytosis Microcytosis Macrocytosis Spherocytes Siderocytes Sickle Cells Target Cells Tear Drop Cells Ovalocytes Stomatocytes Helmet Cells [place] Bodies [place] Rings Tesfaye Cells Acanthocytes (Spur) Rouleaux Fragmented RBCs Schistocytes PTT (Actin FS) 35.8 Sodium 132 L Potassium 3.8 Chloride 93 L Carbon Dioxide 33 H Anion Gap 5 L BUN 7 Creatinine 0.5 L Creat Clearance w eGFR 117.26 Random Glucose 95 Calcium 7.0 L Magnesium Total Bilirubin 0.3 AST 21 ALT 15 Alkaline Phosphatase 74 Total Protein 4.2 L Albumin 1.4 L Fluid Source Fluid WBC Fluid RBC Fluid Neutrophils Fluid Lymphocytes Pleural Monocytes Pleural Eosinophils Pleural Basophils Pleural Mesothelial 01/09/19 01/09/19 05:30 05:30 WBC 13.2 H RBC 3.37 L Hgb 8.1 L Hct 25.4 L MCV 75.5 L MCH 24.0 L MCHC 31.7 L RDW 18.7 H Plt Count 411 MPV 8.2 Absolute Neuts (auto) Total Counted Neutrophils % Neutrophils % (Manual) Band Neutrophils % Lymphocytes % Lymphocytes % (Manual) Monocytes % Monocytes % (Manual) Eosinophils % Eosinophils % (Manual) Basophils % Basophils % (Manual) Myelocytes % (Man) Promyelocytes % (Man) Blast Cells % (Manual) Nucleated RBC % Metamyelocytes Differential Comment Hypersegmented Neuts Plasma Cells Smudge Cells Other Cell Type Hypochromia Toxic Granulation Dohle Bodies Platelet Comment Polychromasia Poikilocytosis Basophilic Stippling Anisocytosis Microcytosis Macrocytosis Spherocytes Siderocytes Sickle Cells Target Cells Tear Drop Cells Ovalocytes Stomatocytes Helmet Cells [place] Bodies [place] Rings Tesfaye Cells Acanthocytes (Spur) Rouleaux Fragmented RBCs Schistocytes PTT (Actin FS) Sodium 133 L Potassium 3.3 L Chloride 92 L Carbon Dioxide 32 Anion Gap 8 BUN 7 Creatinine 0.5 L Creat Clearance w eGFR 117.26 Random Glucose 72 L Calcium 7.3 L Magnesium 2.0 Total Bilirubin 0.4 AST 12 L ALT 12 L Alkaline Phosphatase 66 Total Protein 3.8 L Albumin 1.2 L Fluid Source Fluid WBC Fluid RBC Fluid Neutrophils Fluid Lymphocytes Pleural Monocytes Pleural Eosinophils Pleural Basophils Pleural Mesothelial Active Medications Generic Name Dose Route Start Last Admin Trade Name Freq PRN Reason Stop Dose Admin Acetaminophen 650 mg 01/03/19 08:46 Tylenol - PO Q6H PRN PAIN LEVEL 1-5 Digoxin 0.125 mg 01/09/19 10:00 Lanoxin - PO DAILY [facility] Diltiazem HCl 60 mg 12/29/18 00:00 01/09/19 05:31 Cardizem - PO Not Given Q6HPO [facility] Diltiazem HCl 10 mg 12/28/18 20:38 Cardizem Injection - IVPUSH Q4H PRN TACHYCARDIA Fluticasone Propionate 2 spray 12/29/18 10:00 01/08/19 09:56 Flonase - NS 2 spray DAILY [facility] Administration Furosemide 40 mg 01/06/19 06:00 01/09/19 05:31 Lasix Injection - IVPUSH Not Given BID@0600,1400 [facility] Heparin Sodium (Porcine) 1,000 unit 01/05/19 21:00 01/06/19 12:00 Heparin - IVPUSH 1,000 unit PRN PRN Administration Heparin Heparin Sodium (Porcine) 5,000 unit 01/05/19 21:00 01/08/19 23:07 Heparin - IVPUSH 5,000 unit PRN PRN Administration Heparin Metronidazole 500 mg in 100 mls @ 100 mls/hr 01/05/19 15:00 01/09/19 01:12 Flagyl 500mg Premixed Ivpb - IVPB 100 mls/hr Q8H-IV [facility] Administration Heparin Sodium/Dextrose 25,000 units in 500 mls @ 20 mls/hr 01/05/19 21:00 23:07 Heparin Infusion - IVPB 1,250 units/hr TITR [facility] 25 mls/hr Administration Protocol 1,000 UNITS/HR Magnesium Oxide 400 mg 01/03/19 22:00 01/08/19 21:27 Mag-Ox - PO 400 mg BID [facility] Administration Ondansetron HCl 4 mg 12/28/18 20:38 Zofran Injection IVPUSH Q6H PRN NAUSEA Pantoprazole Sodium 40 mg 12/29/18 10:00 01/08/19 09:46 Protonix Iv IVPUSH 40 mg DAILY [facility] Administration Potassium Phos/Sodium Phos 1 packet 12/28/18 14:00 01/09/19 06:12 Phos-Nak Packet - PO 1 packet TID [facility] Administration Propranolol HCl 60 mg 12/28/18 22:00 01/09/19 04:04 Inderal - PO Not Given Q6H [facility] Propranolol HCl 1 mg 12/28/18 20:38 Inderal Injection - IVPUSH Q1H PRN TACHYCARDIA Tramadol HCl 50 mg 01/08/19 17:44 Ultram - PO Q6H PRN PAIN LEVEL 7 - 10 ASSESSMENT/PLAN: This is an 83 year old woman with a history of HTN, atrial fibrillation, GERD, esophagitis, dementia, benign neoplasm of cerebral meninges who was sent to the ED from [facility] because of nausea and vomiting. 1. Atrial flutter - Off amiodarone drip - Rate is better today - Continue propranolol PO, Cardizem PO, Digoxin PO, Cardizem IV as needed, propranolol IV as needed, heparin IV drip 2. Pulmonary embolus, RLL - On heparin IV drip 3. Bilateral pleural effusions - Right chest tube inserted yesterday 4. 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 Hypotension - Improved 6. Hypokalemia - Replete potassium 7. Hypophosphatemia - Improved 8. Hypomagnesemia - Improved 9. HTN - Continue Cardizem, propranolol, Lasix 7. GERD - Continue Protonix 8. Dementia 9. Anemia secondary to chronic illness, iron deficiency - Continue to monitor hemoglobin 10. Disposition - Continue PT - Plan for return to [facility] at discharge Visit type - Emergency Visit Emergency Visit: Yes ED Registration Date: 12/22/18 Care time: The patient presented to the Emergency Department on the above date and was hospitalized for further evaluation of their emergent condition. - New Patient This patient is new to me today: No - Critical Care Critical Care patient: No - Discharge Referral Referred to [facility] Med P.C.: No
[2019-01-09] MEDS: FLUTICASONE PROP 0.05% 16 GM NASAL SPRAY NS SCH (09:49)
[2019-01-09] MEDS ORDERED: DIGOXIN 0.125 MG TABLET (FP) PO SCH (10:00)
[2019-01-09] MEDS ORDERED: AMIODARONE IN DEXTROSE,ISO-OSM 360 MG/200 ML BAG IVPB ONE (10:22)
[2019-01-09] MEDS ORDERED: AMIODARONE IN DEXTROSE,ISO-OSM 150 MG/100 ML BAG IVPB ONE (10:22)
[2019-01-09 11:45] LABS: ANISOCYTOSIS 1+; MACROCYTOSIS 0; PLATELET ESTIMATE NORMAL
[2019-01-09] MEDS: HEPARIN INFUSION - 25,000 UNITS/500 ML INFUS.BAG IVPB SCH (14:43)
--- NOTE | 2019-01-09 15:59 | PN ---
Progress Note, Physician History of Present Illness: Started on IV Amiodarone due to Rapid AFib and relative Hypotension. Denies shortness of breath or chest pain. patient comfortable new small Right apical PTX. - Current Medication List Current Medications: Active Medications Acetaminophen (Tylenol -) 650 mg PO Q6H PRN PRN Reason: PAIN LEVEL 1-5 Diltiazem HCl (Cardizem -) 60 mg PO Q6HPO [facility] Last Admin: 01/09/19 05:31 Dose: Not Given Diltiazem HCl (Cardizem Injection -) 10 mg IVPUSH Q4H PRN PRN Reason: TACHYCARDIA Fluticasone Propionate (Flonase -) 2 spray NS DAILY [facility] Last Admin: 01/09/19 09:49 Dose: 2 spray Furosemide (Lasix Injection -) 40 mg IVPUSH BID@0600,1400 [facility] Last Admin: 01/09/19 14:44 Dose: 40 mg Heparin Sodium (Porcine) (Heparin -) 1,000 unit IVPUSH PRN PRN PRN Reason: Heparin Last Admin: 01/06/19 12:00 Dose: 1,000 unit Heparin Sodium (Porcine) (Heparin -) 5,000 unit IVPUSH PRN PRN PRN Reason: Heparin Last Admin: 01/08/19 23:07 Dose: 5,000 unit Metronidazole (Flagyl 500mg Premixed Ivpb -) 500 mg in 100 mls @ 100 mls/hr IVPB Q8H-IV [facility] Last Admin: 01/09/19 09:46 Dose: 100 mls/hr Heparin Sodium/Dextrose (Heparin Infusion -) 25,000 units in 500 mls @ 20 mls/ hr IVPB TITR [facility]; Protocol Last Admin: 01/09/19 14:43 Dose: 1,100 units/hr, 22 mls/hr Amiodarone HCl/Dextrose (Nexterone 360 Mg/200 Ml Bag) 360 mg in 200 mls @ 16.667 mls/hr IVPB ASDIR [facility]; Protocol Amiodarone HCl/Dextrose (Nexterone 360 Mg/200 Ml Bag) 360 mg in 200 mls @ 33.333 mls/hr IVPB ONCE ONE; Protocol Stop: 01/09/19 16:21 Last Admin: 01/09/19 11:18 Dose: 33.333 mls/hr Magnesium Oxide (Mag-Ox -) 400 mg PO BID [facility] Last Admin: 01/09/19 09:47 Dose: 400 mg Ondansetron HCl (Zofran Injection) 4 mg IVPUSH Q6H PRN PRN Reason: NAUSEA Pantoprazole Sodium (Protonix Iv) 40 mg IVPUSH DAILY [facility] Last Admin: 01/09/19 09:46 Dose: 40 mg Potassium Phos/Sodium Phos (Phos-Nak Packet -) 1 packet PO TID [facility] Last Admin: 01/09/19 06:12 Dose: 1 packet Propranolol HCl (Inderal -) 60 mg PO Q6H [facility] Last Admin: 01/09/19 09:49 Dose: 60 mg Propranolol HCl (Inderal Injection -) 1 mg IVPUSH Q1H PRN PRN Reason: TACHYCARDIA Tramadol HCl (Ultram -) 50 mg PO Q6H PRN PRN Reason: PAIN LEVEL 7 - 10 Last Admin: 01/09/19 09:47 Dose: 50 mg - Objective Vital Signs: Vital Signs Temperature 98.2 F 01/09/19 14:28 Pulse Rate 118 H 01/09/19 14:28 Respiratory Rate 17 01/09/19 14:28 Blood Pressure 109/60 01/09/19 14:28 O2 Sat by Pulse Oximetry (%) 98 01/09/19 09:00 Constitutional: Yes: No Distress, Calm Cardiovascular: Yes: Tachycardia, Other Respiratory: Yes: On Nasal O2, Poor Air Entry (rt side), Other (rt pig tail catheter) Gastrointestinal: Yes: Normal Bowel Sounds, Soft Musculoskeletal: Yes: WNL Extremities: Yes: WNL Neurological: Yes: Alert Psychiatric: Yes: Alert Labs: CBC, BMP 01/09/19 05:30 01/09/19 05:30 INR, PTT INR 1.13 (0.83-1.09) H 12/21/18 09:35 Assessment/Plan - Problems (1) Colon obstruction Code(s): K56.609 - UNSP INTESTNL OBST, UNSP TO PARTIAL VERSUS COMPLETE OBST (2) Atrial fibrillation with RVR Code(s): I48.91 - UNSPECIFIED ATRIAL FIBRILLATION (3) Dementia Code(s): F03.90 - UNSPECIFIED DEMENTIA WITHOUT BEHAVIORAL DISTURBANCE (4) Esophagitis Code(s): K20.9 - ESOPHAGITIS, UNSPECIFIED (5) GERD (gastroesophageal reflux disease) Code(s): K21.9 - GASTRO-ESOPHAGEAL REFLUX DISEASE WITHOUT ESOPHAGITIS (6) Hypertension Code(s): I10 - ESSENTIAL (PRIMARY) HYPERTENSION Qualifiers: Hypertension type: essential hypertension Qualified Code(s): I10 - Essential (primary) hypertension leukocytosis pleural effusion pe pleural effusion has increased plan continue abx monitor draiange amidrone as per cardio rest as per the team follow up xrays for ptx
[2019-01-09] MEDS ORDERED: POTASSIUM CHLORIDE TABS 20 MEQ TABLET.ER (FP) PO ONE (16:51)
--- NOTE | 2019-01-09 16:53 | PN ---
Progress Note (short form) - Note Progress Note: Resting in NAD. Started on IV Amiodarone due to Rapid AFib and relative Hypotension. Denies shortness of breath or chest pain. CXR:: Decreasing Right effusion / new small Right apical PTX. Intake & Output 01/06/19 01/07/19 01/08/19 01/09/19 23:59 23:59 23:59 23:59 Intake Total 464 50 464 250 Output Total 1200 120 Balance 464 50 -736 130 Weight 139 lb 7 oz Last Vital Signs Temp Pulse Resp BP Pulse Ox 98.2 F 118 H 17 109/60 98 01/09/19 14:28 01/09/19 14:28 01/09/19 14:28 01/09/19 14:28 01/09/19 09:00 Active Medications Acetaminophen (Tylenol -) 650 mg PO Q6H PRN PRN Reason: PAIN LEVEL 1-5 Diltiazem HCl (Cardizem -) 60 mg PO Q6HPO [facility] Last Admin: 01/09/19 12:11 Dose: Not Given Diltiazem HCl (Cardizem Injection -) 10 mg IVPUSH Q4H PRN PRN Reason: TACHYCARDIA Fluticasone Propionate (Flonase -) 2 spray NS DAILY [facility] Last Admin: 01/09/19 09:49 Dose: 2 spray Furosemide (Lasix Injection -) 40 mg IVPUSH BID@0600,1400 [facility] Last Admin: 01/09/19 14:44 Dose: 40 mg Heparin Sodium (Porcine) (Heparin -) 1,000 unit IVPUSH PRN PRN PRN Reason: Heparin Last Admin: 01/06/19 12:00 Dose: 1,000 unit Heparin Sodium (Porcine) (Heparin -) 5,000 unit IVPUSH PRN PRN PRN Reason: Heparin Last Admin: 01/08/19 23:07 Dose: 5,000 unit Metronidazole (Flagyl 500mg Premixed Ivpb -) 500 mg in 100 mls @ 100 mls/hr IVPB Q8H-IV [facility] Last Admin: 01/09/19 09:46 Dose: 100 mls/hr Heparin Sodium/Dextrose (Heparin Infusion -) 25,000 units in 500 mls @ 20 mls/ hr IVPB TITR [facility]; Protocol Last Admin: 01/09/19 14:43 Dose: 1,100 units/hr, 22 mls/hr Amiodarone HCl/Dextrose (Nexterone 360 Mg/200 Ml Bag) 360 mg in 200 mls @ 16.667 mls/hr IVPB ASDIR [facility]; Protocol Magnesium Oxide (Mag-Ox -) 400 mg PO BID [facility] Last Admin: 01/09/19 09:47 Dose: 400 mg Ondansetron HCl (Zofran Injection) 4 mg IVPUSH Q6H PRN PRN Reason: NAUSEA Pantoprazole Sodium (Protonix Iv) 40 mg IVPUSH DAILY [facility] Last Admin: 01/09/19 09:46 Dose: 40 mg Potassium Chloride (K-Dur -) 40 meq PO ONCE ONE Stop: 01/09/19 16:52 Potassium Phos/Sodium Phos (Phos-Nak Packet -) 1 packet PO TID [facility] Last Admin: 01/09/19 14:07 Dose: 1 packet Propranolol HCl (Inderal -) 60 mg PO Q6H [facility] Last Admin: 01/09/19 16:11 Dose: Not Given Propranolol HCl (Inderal Injection -) 1 mg IVPUSH Q1H PRN PRN Reason: TACHYCARDIA Tramadol HCl (Ultram -) 50 mg PO Q6H PRN PRN Reason: PAIN LEVEL 7 - 10 Last Admin: 01/09/19 09:47 Dose: 50 mg Gen: NAD at rest Heart: S1S2 Lung: Right pigtail catheter, decreased breath sounds at the bases Abd: soft, nontender Ext: no edema Laboratory Results - last 24 hr 01/08/19 01/08/19 01/08/19 15:30 18:25 18:25 WBC 14.3 H RBC 3.77 Hgb 9.2 L Hct 28.5 L MCV 75.6 L MCH 24.4 L MCHC 32.2 RDW 18.5 H Plt Count 463 H MPV 8.3 Absolute Neuts (auto) 11.6 H Neutrophils % 81.1 Neutrophils % (Manual) Band Neutrophils % Lymphocytes % 8.3 D Lymphocytes % (Manual) Monocytes % 10.1 Monocytes % (Manual) Eosinophils % 0.3 Eosinophils % (Manual) Basophils % 0.2 Basophils % (Manual) Myelocytes % (Man) Promyelocytes % (Man) Blast Cells % (Manual) Nucleated RBC % 0 Metamyelocytes Hypochromia Platelet Estimate Platelet Comment Polychromasia Poikilocytosis Anisocytosis Microcytosis Macrocytosis PTT (Actin FS) Sodium 132 L Potassium 3.8 Chloride 93 L Carbon Dioxide 33 H Anion Gap 5 L BUN 7 Creatinine 0.5 L Creat Clearance w eGFR 117.26 Random Glucose 95 Calcium 7.0 L Magnesium Total Bilirubin 0.3 AST 21 ALT 15 Alkaline Phosphatase 74 Total Protein 4.2 L Albumin 1.4 L Fluid Source Pleural Fluid WBC 3,017 Fluid RBC 41,670 Fluid Neutrophils 84 Fluid Lymphocytes 13 Pleural Monocytes 0 Pleural Eosinophils 3 Pleural Basophils 0 Pleural Mesothelial 2 01/08/19 01/09/19 01/09/19 22:30 05:30 05:30 WBC 13.2 H RBC 3.37 L Hgb 8.1 L Hct 25.4 L MCV 75.5 L MCH 24.0 L MCHC 31.7 L RDW 18.7 H Plt Count 411 MPV 8.2 Absolute Neuts (auto) Neutrophils % Neutrophils % (Manual) 74.0 Band Neutrophils % 0.0 Lymphocytes % Lymphocytes % (Manual) 14.4 D Monocytes % Monocytes % (Manual) 11 H D Eosinophils % Eosinophils % (Manual) 1.0 D Basophils % Basophils % (Manual) 0.0 Myelocytes % (Man) 0 D Promyelocytes % (Man) 0 Blast Cells % (Manual) 0 Nucleated RBC % 0 Metamyelocytes 0 Hypochromia 1+ Platelet Estimate Normal Platelet Comment Present Polychromasia 1+ Poikilocytosis 2+ Anisocytosis 1+ Microcytosis 1+ Macrocytosis 0 PTT (Actin FS) 35.8 134.8 H Sodium Potassium Chloride Carbon Dioxide Anion Gap BUN Creatinine Creat Clearance w eGFR Random Glucose Calcium Magnesium Total Bilirubin AST ALT Alkaline Phosphatase Total Protein Albumin Fluid Source Fluid WBC Fluid RBC Fluid Neutrophils Fluid Lymphocytes Pleural Monocytes Pleural Eosinophils Pleural Basophils Pleural Mesothelial 01/09/19 05:30 WBC RBC Hgb Hct MCV MCH MCHC RDW Plt Count MPV Absolute Neuts (auto) Neutrophils % Neutrophils % (Manual) Band Neutrophils % Lymphocytes % Lymphocytes % (Manual) Monocytes % Monocytes % (Manual) Eosinophils % Eosinophils % (Manual) Basophils % Basophils % (Manual) Myelocytes % (Man) Promyelocytes % (Man) Blast Cells % (Manual) Nucleated RBC % Metamyelocytes Hypochromia Platelet Estimate Platelet Comment Polychromasia Poikilocytosis Anisocytosis Microcytosis Macrocytosis PTT (Actin FS) Sodium 133 L Potassium 3.3 L Chloride 92 L Carbon Dioxide 32 Anion Gap 8 BUN 7 Creatinine 0.5 L Creat Clearance w eGFR 117.26 Random Glucose 72 L Calcium 7.3 L Magnesium 2.0 Total Bilirubin 0.4 AST 12 L ALT 12 L Alkaline Phosphatase 66 Total Protein 3.8 L Albumin 1.2 L Fluid Source Fluid WBC Fluid RBC Fluid Neutrophils Fluid Lymphocytes Pleural Monocytes Pleural Eosinophils Pleural Basophils Pleural Mesothelial A/P Large Bowel Obstruction/Ascending Colon Mass Newly Diagnosed Colon CA S/P Ex-lap/right hemicolectomy/primary ileotransverse anastamosis Atrial Fibrillation/Flutter with RVR Acute RLL Pulmonary Embolism Right Pleural effusion: Pleural studies are pending HTN GERD Dementia New small Right Apical PTX 01/09 - Follow daily CXR - IV Amiodarone per Cardiology for rate control - Incentive spirometry - IV Heparin for anticoagulation - PO as tolerated - ABX per ID Dr Monroe
[2019-01-09] MEDS: AMIODARONE IN DEXTROSE,ISO-OSM 360 MG/200 ML BAG IVPB SCH (17:16)
[2019-01-09] MEDS ORDERED: PT OWN MED DRAWER 7, Y5N ONE (21:16)
[2019-01-10] MEDS: dilTIAZem HCL 60 MG TABLET (FP) PO SCH ×4 (00:11→18:22)
[2019-01-10] MEDS ORDERED: PT OWN MED DRAWER 7, Y5N ONE ×2 (02:51→21:45)
[2019-01-10] MEDS: HEPARIN INFUSION - 25,000 UNITS/500 ML INFUS.BAG IVPB SCH (05:56)
[2019-01-10 06:49] LABS: HEMATOCRIT 25.2 % (32.4-45.2); MCH 23.8 pg (25.7-33.7); MCHC 31.8 g/dl (32.0-36.0); MEAN CELL VOLUME 74.9 fl (80-96); MEAN PLT VOLUME 8.1 fl (7.5-11.1); PLATELET COUNT 397 K/MM3 (134-434); RBC 3.37 M/mm3 (3.60-5.2); RDW 18.1 % (11.6-15.6); WHITE BLOOD COUNT 12.9 K/mm3 (4.0-10.0)
[2019-01-10] MEDS: NAPH,MB-DB/K PH,MBDB POWDER PACKET PO SCH ×3 (07:11→22:12)
[2019-01-10] MEDS: FUROSEMIDE 40 MG/4 ML INJECTABLE VIAL IVPUSH SCH ×2 (07:11→13:10)
[2019-01-10 07:54] LABS: ANION GAP 6 MMOL/L (8-16); BLOOD UREA NITROGEN 6 mg/dL (7-18); CALCIUM 7.3 mg/dL (8.5-10.1); CHLORIDE 94 mmol/L (98-107); CO2 34 mmol/L (21-32); CREATININE 0.5 mg/dL (0.55-1.3); GLUCOSE,RANDOM 100 mg/dL (74-106); POTASSIUM 3.8 mmol/L (3.5-5.1); SODIUM 134 mmol/L (136-145)
--- NOTE | 2019-01-10 09:21 | PN ---
Progress Note (short form) - Note Progress Note: Chief Complaint: abd pain/sbo History of Present Illness: no chest pain, palps, dizziness. Current Medications Acetaminophen (Tylenol -) 650 mg PO Q6H PRN PRN Reason: PAIN LEVEL 1-5 Diltiazem HCl (Cardizem -) 60 mg PO Q6HPO [facility] Last Admin: 01/10/19 07:06 Dose: Not Given Diltiazem HCl (Cardizem Injection -) 10 mg IVPUSH Q4H PRN PRN Reason: TACHYCARDIA Fluticasone Propionate (Flonase -) 2 spray NS DAILY [facility] Last Admin: 01/09/19 09:49 Dose: 2 spray Furosemide (Lasix Injection -) 40 mg IVPUSH BID@0600,1400 [facility] Last Admin: 01/10/19 07:11 Dose: 40 mg Heparin Sodium (Porcine) (Heparin -) 1,000 unit IVPUSH PRN PRN PRN Reason: Heparin Last Admin: 01/06/19 12:00 Dose: 1,000 unit Heparin Sodium (Porcine) (Heparin -) 5,000 unit IVPUSH PRN PRN PRN Reason: Heparin Last Admin: 01/08/19 23:07 Dose: 5,000 unit Metronidazole (Flagyl 500mg Premixed Ivpb -) 500 mg in 100 mls @ 100 mls/hr IVPB Q8H-IV [facility] Last Admin: 01/10/19 04:00 Dose: 100 mls/hr Heparin Sodium/Dextrose (Heparin Infusion -) 25,000 units in 500 mls @ 20 mls/ hr IVPB TITR [facility]; Protocol Last Admin: 01/10/19 05:56 Dose: 950 units/hr, 19 mls/hr Amiodarone HCl/Dextrose (Nexterone 360 Mg/200 Ml Bag) 360 mg in 200 mls @ 16.667 mls/hr IVPB ASDIR [facility]; Protocol Last Admin: 01/09/19 17:16 Dose: 16.667 mls/hr Magnesium Oxide (Mag-Ox -) 400 mg PO BID [facility] Last Admin: 01/09/19 22:46 Dose: 400 mg Ondansetron HCl (Zofran Injection) 4 mg IVPUSH Q6H PRN PRN Reason: NAUSEA Pantoprazole Sodium (Protonix Iv) 40 mg IVPUSH DAILY [facility] Last Admin: 01/09/19 09:46 Dose: 40 mg Potassium Phos/Sodium Phos (Phos-Nak Packet -) 1 packet PO TID [facility] Last Admin: 01/10/19 07:11 Dose: 1 packet Propranolol HCl (Inderal -) 60 mg PO Q6H [facility] Last Admin: 01/10/19 05:00 Dose: Not Given Propranolol HCl (Inderal Injection -) 1 mg IVPUSH Q1H PRN PRN Reason: TACHYCARDIA Tramadol HCl (Ultram -) 50 mg PO Q6H PRN PRN Reason: PAIN LEVEL 7 - 10 Last Admin: 01/09/19 09:47 Dose: 50 mg - Objective Vital Signs: Vital Signs Period Temp Pulse Resp BP Sys/Germain Pulse Ox Last 24 Hr 98.2 F-98.5 F 116-125 17-22 94-109/51-79 97 Constitutional: Yes: No Distress, Calm Eyes: No: Sclera Icterus HENT: No: Nasal Congestion Cardiovascular: Yes: Pulse Irregular, S1, S2, Other (PMI non diplaced). No: JVD , Gallop, Murmur Respiratory: Yes: CTA Bilaterally, Diminished ( R base). No: Accessory Muscle Use, Rales, Wheezes Gastrointestinal: Yes: Normal Bowel Sounds, Soft. No: Tenderness Musculoskeletal: Yes: Other (No kyphosis) Extremities: No: Cold Edema: No (SCDs) Integumentary: No: Jaundice Neurological: Yes: Alert. No: Seizure Psychiatric: No: Agitated Assessment/Plan Echo 12/2018: small LV cavity, hyperdynamic. mild-mod dilated RV, hyperdynamic RVSF. mild ERIK. mild-mod MR (eccentric). RVSP 30-35 CTA chest acute RLL PE, mod R and small left pleural effusions tele: AF 110s-120s, occasionally 90s a/p: 83 f hx dementia, afib/flutter, gerd, htn, tia, sent from [place] for coffee ground emesis. aflutter: - was on diltiazem 60 mg QID and propranolol 120 mg BID at home-->npo postop bowel surgery with tachycardia and hypotensive on levophed-->amio gtt started with persistent tachycardia. hemodynamics improved-->amio d/c'd, prn iv diltiazem ordered - 12/25: H?R 140s, no response to IV diltiazem pushes, SBP dropped to 80s. d/w'd icu team: will start non-chronotropic vasoconstrictor pressor, then initiate low dose PO and IV propranolol trial for HR control. - eliquis held briefly during 12/05 admit with GIB, resumed on discharge with plan for outpt GI scopes. H/H were stable when arrived this time with SBO, eliquis now on hold for surgery - 12/26: HR remains 130s, will increase propranolol to 60 mg QID (home dose is propranolol long acting 120 mg BID). If BP tolerates would restart PO diltiazem as well, at home was on 60 mg QID - 12/27: eliquis resumed, HR 130s. change eliquis to 5 mg BID dosing (age >80 however she is >60 kg and Cr <1.5, does not meet criteria for low dose and was on full dose prior). BP improved today, will restart diltiazem 60 mg Q6H 12/28: HR improved but still fast at times, cont same dilt/inderal for now as bp on low side and monitor on tele. -12/29-: rates good, BPs soft--same meds -01/04-: rvr to 120s at times, pt tolerating and bp low side so cont same rate meds for now -01/07: 3 doses of propranolol held for low BP yesterday, rate 120s, received diltiazem. d/w RN to give propranolol first, monitor BP and give diltiazem if BP stable K 2.9, replete lytes for K >4.0, Mg >2.0 -01/08: bp consistently 90s > 80s systolic, rates rapid--start digoxin (may need load if remains tachy later) -01/09: did not receive propranolol or diltiazem due to low BP yesterday, HR remains 120s on digoxin. start amiodarone gtt -01/10: rate 90s-120s on amiodarone, propranolol and diltiazem held due to low BP. cont amiodarone - holding eliquis, on heparin gtt s/p chest tube. restart eliquis when able per IR hypotension - ? intravasc contracted (low albumin/low oncotic pressure, on lasix) - deferring pressors at present, given normal mentation Pulmonary embolism, pleural effusions, acute diast CHF, severe hypoalbuminuria: - pulm congestion on CXR after receiving IVF here, was diuresed - echo with dilated RV (normal function), no signific pulm HTN per TR gradient measurable on that study. Pt at risk for PE given: (1) AC had been held here for several days preop/postop, (2) she has new dx of colon malignancy; (3) she is postop and bedbound. - LE venous dopplers no DVT - CTA chest acute RLL PE - on eliquis - betzy pleural effusions on CTA 01/02- had been getting prn iv lasix - CT abd/pelvis 01/05 shows large R pleural effusion increased in size - now on lasix 40 mg IV BID, continue - pleural effusion mgmt per crit care, thoracic surgery, s/p chest tube with 1200 cc serosanguinous drainage sbo, colon mass: -s/p surgery, found to have colon ca, onc following
[2019-01-10] MEDS: MAGNESIUM OXIDE 400 MG TABLET (FP) PO SCH ×2 (09:47→22:12)
[2019-01-10] MEDS: PANTOPRAZOLE SODIUM 40 MG VIAL IVPUSH SCH (09:47)
[2019-01-10] MEDS: FLUTICASONE PROP 0.05% 16 GM NASAL SPRAY NS SCH (10:27)
--- NOTE | 2019-01-10 13:01 | PN ---
Progress Note, Physician History of Present Illness: 24 HR Events -pt remains stable, -Right chest tube in place, CXR with decreased fluid. - Current Medication List Current Medications: Active Medications Acetaminophen (Tylenol -) 650 mg PO Q6H PRN PRN Reason: PAIN LEVEL 1-5 Diltiazem HCl (Cardizem -) 60 mg PO Q6HPO [facility] Last Admin: 01/10/19 12:03 Dose: 60 mg Diltiazem HCl (Cardizem Injection -) 10 mg IVPUSH Q4H PRN PRN Reason: TACHYCARDIA Fluticasone Propionate (Flonase -) 2 spray NS DAILY [facility] Last Admin: 01/10/19 10:27 Dose: 2 spray Furosemide (Lasix Injection -) 40 mg IVPUSH BID@0600,1400 [facility] Last Admin: 01/10/19 07:11 Dose: 40 mg Heparin Sodium (Porcine) (Heparin -) 1,000 unit IVPUSH PRN PRN PRN Reason: Heparin Last Admin: 01/06/19 12:00 Dose: 1,000 unit Heparin Sodium (Porcine) (Heparin -) 5,000 unit IVPUSH PRN PRN PRN Reason: Heparin Last Admin: 01/08/19 23:07 Dose: 5,000 unit Metronidazole (Flagyl 500mg Premixed Ivpb -) 500 mg in 100 mls @ 100 mls/hr IVPB Q8H-IV [facility] Last Admin: 01/10/19 09:47 Dose: 100 mls/hr Heparin Sodium/Dextrose (Heparin Infusion -) 25,000 units in 500 mls @ 20 mls/ hr IVPB TITR [facility]; Protocol Last Admin: 01/10/19 05:56 Dose: 950 units/hr, 19 mls/hr Amiodarone HCl/Dextrose (Nexterone 360 Mg/200 Ml Bag) 360 mg in 200 mls @ 16.667 mls/hr IVPB ASDIR [facility]; Protocol Last Admin: 01/09/19 17:16 Dose: 16.667 mls/hr Magnesium Oxide (Mag-Ox -) 400 mg PO BID [facility] Last Admin: 01/10/19 09:47 Dose: 400 mg Ondansetron HCl (Zofran Injection) 4 mg IVPUSH Q6H PRN PRN Reason: NAUSEA Pantoprazole Sodium (Protonix Iv) 40 mg IVPUSH DAILY [facility] Last Admin: 01/10/19 09:47 Dose: 40 mg Potassium Phos/Sodium Phos (Phos-Nak Packet -) 1 packet PO TID [facility] Last Admin: 01/10/19 07:11 Dose: 1 packet Propranolol HCl (Inderal -) 60 mg PO Q6H [facility] Last Admin: 01/10/19 09:49 Dose: Not Given Propranolol HCl (Inderal Injection -) 1 mg IVPUSH Q1H PRN PRN Reason: TACHYCARDIA Tramadol HCl (Ultram -) 50 mg PO Q6H PRN PRN Reason: PAIN LEVEL 7 - 10 Last Admin: 01/09/19 09:47 Dose: 50 mg - Objective Vital Signs: Vital Signs Temperature 98.5 F 01/09/19 18:00 Pulse Rate 124 H 01/10/19 12:00 Respiratory Rate 16 01/10/19 12:00 Blood Pressure 108/73 01/10/19 12:00 O2 Sat by Pulse Oximetry (%) 99 01/10/19 12:17 Constitutional: Yes: No Distress, Calm Eyes: Yes: Conjunctiva Clear, PERRL HENT: Yes: Atraumatic, Normocephalic Neck: Yes: Supple, Trachea Midline Cardiovascular: Yes: Tachycardia, Pulse Irregular Respiratory: Yes: Regular, Diminished (at the bases), On Nasal O2 Gastrointestinal: Yes: Normal Bowel Sounds, Soft, Abdomen, Obese ...Rectal Exam: Yes: Deferred Genitourinary: Yes: Incontinence (diapers) Musculoskeletal: Yes: Muscle Weakness Extremities: Yes: WNL Edema: LLE: Trace, RLE: Trace Peripheral Pulses: Left Radial: 2+, Right Radial: 2+, Left Doralis Pedis: 2+, Right Dorsalis Pedis: 2+ Integumentary: Yes: WNL Wound/Incision: Yes: Well Approximated (laporatomy incision) Neurological: Yes: Alert, Weakness, Other (pt with periods of confusion) ...Motor Strength: WNL Psychiatric: Yes: Alert, Agitated (pt more irritable this morning) Labs: CBC, BMP 01/10/19 05:30 01/10/19 05:30 INR, PTT INR 1.13 (0.83-1.09) H 12/21/18 09:35 - ....Imaging Chest X-ray: Report Reviewed (CXR 01/09/2019 Impression: Decreased right fluid. Small right apical PTX with right chest tube.) Problem List - Problems (1) Dementia Assessment/Plan: frequent reorientation and reassurance Code(s): F03.90 - UNSPECIFIED DEMENTIA WITHOUT BEHAVIORAL DISTURBANCE (2) Flutter-fibrillation Assessment/Plan: continue amiodarone drip Propranolol 60 mg PO QID Cardizem 60mg QID heparin drip, follow PTT closely, goal 68-90 Code(s): I49.8 - OTHER SPECIFIED CARDIAC ARRHYTHMIAS (3) GERD (gastroesophageal reflux disease) Assessment/Plan: protonix daily Code(s): K21.9 - GASTRO-ESOPHAGEAL REFLUX DISEASE WITHOUT ESOPHAGITIS (4) Large bowel obstruction Assessment/Plan: Large bowel obstruction secondary to mass of right colon - s/p exploratory laparotomy, right hemicolectomy, primary ileotransverse anastamosis on 12/22 - 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 - New Patient This patient is new to me today: No - Critical Care Critical Care patient: Yes Total Critical Care Time (in minutes): 45 Critical Care Statement: The care of this patient involved high complexity decision making to prevent further life threatening deterioration of the patient 's condition and/or to evaluate & treat vital organ system(s) failure or risk of failure. - Discharge Referral Referred to [facility] Med P.C.: No
--- NOTE | 2019-01-10 13:56 | PN ---
Progress Note (short form) - Note Progress Note: PULMONARY Denies shortness of breath or chest pain. Chest tube draining serosanguinous fluid. Vital Signs Period Temp Pulse Resp BP Sys/Germain Pulse Ox Last 24 Hr 98.2 F-99.1 F 116-124 16-22 93-109/51-79 97-99 Gen: NAD at rest Heart: tachycardic Lung: decreased breath sounds at the bases Abd: soft, nontender Ext: no edema CBC, BMP 01/10/19 05:30 01/10/19 05:30 Active Medications Acetaminophen (Tylenol -) 650 mg PO Q6H PRN PRN Reason: PAIN LEVEL 1-5 Diltiazem HCl (Cardizem -) 60 mg PO Q6HPO [facility] Last Admin: 01/10/19 12:03 Dose: 60 mg Diltiazem HCl (Cardizem Injection -) 10 mg IVPUSH Q4H PRN PRN Reason: TACHYCARDIA Fluticasone Propionate (Flonase -) 2 spray NS DAILY [facility] Last Admin: 01/10/19 10:27 Dose: 2 spray Furosemide (Lasix Injection -) 40 mg IVPUSH BID@0600,1400 [facility] Last Admin: 01/10/19 13:10 Dose: 40 mg Heparin Sodium (Porcine) (Heparin -) 1,000 unit IVPUSH PRN PRN PRN Reason: Heparin Last Admin: 01/06/19 12:00 Dose: 1,000 unit Heparin Sodium (Porcine) (Heparin -) 5,000 unit IVPUSH PRN PRN PRN Reason: Heparin Last Admin: 01/08/19 23:07 Dose: 5,000 unit Metronidazole (Flagyl 500mg Premixed Ivpb -) 500 mg in 100 mls @ 100 mls/hr IVPB Q8H-IV [facility] Last Admin: 01/10/19 09:47 Dose: 100 mls/hr Heparin Sodium/Dextrose (Heparin Infusion -) 25,000 units in 500 mls @ 20 mls/ hr IVPB TITR [facility]; Protocol Last Admin: 01/10/19 05:56 Dose: 950 units/hr, 19 mls/hr Amiodarone HCl/Dextrose (Nexterone 360 Mg/200 Ml Bag) 360 mg in 200 mls @ 16.667 mls/hr IVPB ASDIR [facility]; Protocol Last Admin: 01/09/19 17:16 Dose: 16.667 mls/hr Magnesium Oxide (Mag-Ox -) 400 mg PO BID [facility] Last Admin: 01/10/19 09:47 Dose: 400 mg Ondansetron HCl (Zofran Injection) 4 mg IVPUSH Q6H PRN PRN Reason: NAUSEA Pantoprazole Sodium (Protonix Iv) 40 mg IVPUSH DAILY [facility] Last Admin: 01/10/19 09:47 Dose: 40 mg Potassium Phos/Sodium Phos (Phos-Nak Packet -) 1 packet PO TID [facility] Last Admin: 01/10/19 13:11 Dose: 1 packet Propranolol HCl (Inderal -) 60 mg PO Q6H [facility] Last Admin: 01/10/19 09:49 Dose: Not Given Propranolol HCl (Inderal Injection -) 1 mg IVPUSH Q1H PRN PRN Reason: TACHYCARDIA Tramadol HCl (Ultram -) 50 mg PO Q6H PRN PRN Reason: PAIN LEVEL 7 - 10 Last Admin: 01/09/19 09:47 Dose: 50 mg A/P Large Bowel Obstruction/Ascending Colon Mass Newly Diagnosed Colon Ca s/p ex-lap/right hemicolectomy/primary ileotransverse anastamosis Atrial Fibrillation/Flutter with RVR Acute on Chronic Diastolic Heart Failure Acute RLL Pulmonary Embolism HTN GERD Dementia - continue lasix - monitor urine output, creatinine - monitor chest tube output - repeat CXR in AM - pain control - incentive spirometry - rate control per cardiology - continue anticoagulation - PO as tolerated - on antibiotics per ID
[2019-01-10 14:17] LABS: BODY FLUID ALBUMIN 1.3 g/dL (.)
--- NOTE | 2019-01-10 15:36 | PATH ---
Cytology Non-Gynecological Report Patient Name: [facility]. Rec. #: [id number] /Age/Gender: 1935 (Age: 83) / F Account: [id number] Location: ICU SORTER/ASSAY TECH Taken: 01/08/2019 Received: 01/09/2019 Reported: 01/10/2019 Physicians: Negin Reynoso F.N.P. Specimen(s) Received RIGHT PLEURAL FLUID Clinical History Pleural effusion Final Diagnosis PLEURAL FLUID, RIGHT, THORACENTESIS: SATISFACTORY FOR EVALUATION. NO MALIGNANT CELLS IDENTIFIED. MIXED INFLAMMATORY INFILTRATE COMPRISED OF NUMEROUS NEUTROPHILS, LYMPHOCYTES, AND RARE MACROPHAGES. Electronically Signed Ruth Paredes M.D. Gross Description Approximately 50 cc of bloody fluid received fixed in 50% alcohol. One cytofunnel prepared and Pap stained. One cellblock prepared.
--- NOTE | 2019-01-10 15:41 | PN ---
Progress Note, Physician History of Present Illness: no complaints no new issues chest tube draining - Current Medication List Current Medications: Active Medications Acetaminophen (Tylenol -) 650 mg PO Q6H PRN PRN Reason: PAIN LEVEL 1-5 Diltiazem HCl (Cardizem -) 60 mg PO Q6HPO [facility] Last Admin: 01/10/19 12:03 Dose: 60 mg Diltiazem HCl (Cardizem Injection -) 10 mg IVPUSH Q4H PRN PRN Reason: TACHYCARDIA Fluticasone Propionate (Flonase -) 2 spray NS DAILY [facility] Last Admin: 01/10/19 10:27 Dose: 2 spray Furosemide (Lasix Injection -) 40 mg IVPUSH BID@0600,1400 [facility] Last Admin: 01/10/19 13:10 Dose: 40 mg Heparin Sodium (Porcine) (Heparin -) 1,000 unit IVPUSH PRN PRN PRN Reason: Heparin Last Admin: 01/06/19 12:00 Dose: 1,000 unit Heparin Sodium (Porcine) (Heparin -) 5,000 unit IVPUSH PRN PRN PRN Reason: Heparin Last Admin: 01/08/19 23:07 Dose: 5,000 unit Heparin Sodium/Dextrose (Heparin Infusion -) 25,000 units in 500 mls @ 20 mls/ hr IVPB TITR [facility]; Protocol Last Admin: 01/10/19 05:56 Dose: 950 units/hr, 19 mls/hr Amiodarone HCl/Dextrose (Nexterone 360 Mg/200 Ml Bag) 360 mg in 200 mls @ 16.667 mls/hr IVPB ASDIR [facility]; Protocol Last Admin: 01/09/19 17:16 Dose: 16.667 mls/hr Magnesium Oxide (Mag-Ox -) 400 mg PO BID [facility] Last Admin: 01/10/19 09:47 Dose: 400 mg Ondansetron HCl (Zofran Injection) 4 mg IVPUSH Q6H PRN PRN Reason: NAUSEA Pantoprazole Sodium (Protonix Iv) 40 mg IVPUSH DAILY [facility] Last Admin: 01/10/19 09:47 Dose: 40 mg Potassium Phos/Sodium Phos (Phos-Nak Packet -) 1 packet PO TID [facility] Last Admin: 01/10/19 13:11 Dose: 1 packet Propranolol HCl (Inderal -) 60 mg PO Q6H [facility] Last Admin: 01/10/19 09:49 Dose: Not Given Propranolol HCl (Inderal Injection -) 1 mg IVPUSH Q1H PRN PRN Reason: TACHYCARDIA Tramadol HCl (Ultram -) 50 mg PO Q6H PRN PRN Reason: PAIN LEVEL 7 - 10 Last Admin: 01/09/19 09:47 Dose: 50 mg - Objective Vital Signs: Vital Signs Temperature 99.1 F 01/10/19 13:10 Pulse Rate 122 H 01/10/19 13:10 Respiratory Rate 16 01/10/19 13:10 Blood Pressure 106/62 01/10/19 13:10 O2 Sat by Pulse Oximetry (%) 99 01/10/19 12:17 Constitutional: Yes: No Distress, Calm Cardiovascular: Yes: S1, S2 Respiratory: Yes: On Nasal O2, Other (drain tube in place) Gastrointestinal: Yes: Normal Bowel Sounds, Soft Musculoskeletal: Yes: WNL Extremities: Yes: WNL Neurological: Yes: Alert Psychiatric: Yes: Alert Labs: CBC, BMP 01/10/19 05:30 01/10/19 05:30 INR, PTT INR 1.13 (0.83-1.09) H 12/21/18 09:35 Assessment/Plan - Problems (1) Colon obstruction Code(s): K56.609 - UNSP INTESTNL OBST, UNSP TO PARTIAL VERSUS COMPLETE OBST (2) Atrial fibrillation with RVR Code(s): I48.91 - UNSPECIFIED ATRIAL FIBRILLATION (3) Dementia Code(s): F03.90 - UNSPECIFIED DEMENTIA WITHOUT BEHAVIORAL DISTURBANCE (4) Esophagitis Code(s): K20.9 - ESOPHAGITIS, UNSPECIFIED (5) GERD (gastroesophageal reflux disease) Code(s): K21.9 - GASTRO-ESOPHAGEAL REFLUX DISEASE WITHOUT ESOPHAGITIS (6) Hypertension Code(s): I10 - ESSENTIAL (PRIMARY) HYPERTENSION Qualifiers: Hypertension type: essential hypertension Qualified Code(s): I10 - Essential (primary) hypertension leukocytosis pleural effusion pe pleural effusion has increased plan continue abx monitor drain rest as per the team will have to make a final plan
[2019-01-10 15:49] VITALS: BMI 22.4
[2019-01-10] MEDS: AMIODARONE IN DEXTROSE,ISO-OSM 360 MG/200 ML BAG IVPB SCH (18:21)
[2019-01-11 06:04] LABS: HEMOGLOBIN 7.6 GM/dL (10.7-15.3); MCH 22.8 pg (25.7-33.7); MCHC 30.5 g/dl (32.0-36.0); MEAN CELL VOLUME 74.9 fl (80-96); PLATELET COUNT 353 K/MM3 (134-434); RBC 3.34 M/mm3 (3.60-5.2); RDW 18.1 % (11.6-15.6); WHITE BLOOD COUNT 13.3 K/mm3 (4.0-10.0)
[2019-01-11 06:20] LABS: INR 1.54 (0.83-1.09); PROTHROMBIN TIME (PATIENT) 18.3 SEC (9.7-13.0)
[2019-01-11] MEDS: dilTIAZem HCL 60 MG TABLET (FP) PO SCH ×4 (06:24→18:16)
[2019-01-11] MEDS: FUROSEMIDE 40 MG/4 ML INJECTABLE VIAL IVPUSH SCH ×2 (06:24→13:33)
[2019-01-11] MEDS: HEPARIN INFUSION - 25,000 UNITS/500 ML INFUS.BAG IVPB SCH ×3 (06:26→22:13)
[2019-01-11] MEDS: NAPH,MB-DB/K PH,MBDB POWDER PACKET PO SCH ×3 (06:27→22:13)
[2019-01-11 06:45] LABS: ALBUMIN 1.2 g/dl (3.4-5.0); ALK PHOS 67 U/L (45-117); ANION GAP 8 MMOL/L (8-16); BILIRUBIN,TOTAL 0.2 mg/dL (0.2-1); BLOOD UREA NITROGEN 7 mg/dL (7-18); CALCIUM 7.1 mg/dL (8.5-10.1); CHLORIDE 90 mmol/L (98-107); CO2 33 mmol/L (21-32); CREATININE 0.4 mg/dL (0.55-1.3); GLUCOSE,RANDOM 124 mg/dL (74-106); MAGNESIUM 1.4 mg/dL (1.8-2.4); PHOSPHOROUS 2.2 mg/dL (2.5-4.9); POTASSIUM 3.1 mmol/L (3.5-5.1); SGOT/AST 7 U/L (15-37); SGPT/ALT 10 U/L (13-61); SODIUM 132 mmol/L (136-145); TOT PROT 4.1 g/dl (6.4-8.2)
[2019-01-11] MEDS: MAGNESIUM OXIDE 400 MG TABLET (FP) PO SCH ×2 (10:28→22:13)
[2019-01-11] MEDS: PANTOPRAZOLE SODIUM 40 MG VIAL IVPUSH SCH (10:30)
[2019-01-11] MEDS: FLUTICASONE PROP 0.05% 16 GM NASAL SPRAY NS SCH (10:33)
--- NOTE | 2019-01-11 10:39 | PN ---
Progress Note (short form) - Note Progress Note: s: no cp sob palps dizzy o: Vital Signs Period Temp Pulse Resp BP Sys/Germain Pulse Ox Last 24 Hr 98.2 F-99.1 F 67-124 16-20 97-121/42-73 99-99 nad, no jvd irreg s1s2 no mrg cta bl nl eff awake, alert no jaundice diaphoresis no le e/c/c abd nt nd pos bs Current Medications Generic Name Dose Route Start Last Admin Trade Name Freq PRN Reason Stop Dose Admin Acetaminophen 650 mg 01/03/19 08:46 Tylenol - PO Q6H PRN PAIN LEVEL 1-5 Diltiazem HCl 60 mg 12/29/18 00:00 01/11/19 06:24 Cardizem - PO 60 mg Q6HPO OBDULIO Administration Diltiazem HCl 10 mg 12/28/18 20:38 Cardizem Injection - IVPUSH Q4H PRN TACHYCARDIA Fluticasone Propionate 2 spray 12/29/18 10:00 01/11/19 10:33 Flonase - NS 2 spray DAILY OBDULIO Administration Furosemide 40 mg 01/06/19 06:00 01/11/19 06:24 Lasix Injection - IVPUSH 40 mg BID@0600,1400 OBDULIO Administration Heparin Sodium (Porcine) 1,000 unit 01/05/19 21:00 01/06/19 12:00 Heparin - IVPUSH 1,000 unit PRN PRN Administration Heparin Heparin Sodium (Porcine) 5,000 unit 01/05/19 21:00 01/08/19 23:07 Heparin - IVPUSH 5,000 unit PRN PRN Administration Heparin Heparin Sodium/Dextrose 25,000 units in 500 mls @ 20 mls/hr 01/05/19 21:00 10:28 Heparin Infusion - IVPB 950 units/hr TITR OBDULIO 19 mls/hr Administration Protocol 1,000 UNITS/HR Amiodarone HCl/Dextrose 360 mg in 200 mls @ 16.667 mls/hr 01/09/19 16:22 18:21 Nexterone 360 Mg/200 Ml Bag IVPB 16.667 mls/hr ASDIR OBDULIO Administration Protocol 0.5 MG/MIN Magnesium Oxide 400 mg 01/03/19 22:00 03/28/19 10:28 Mag-Ox - PO 400 mg BID OBDULIO Administration Ondansetron HCl 4 mg 12/28/18 20:38 Zofran Injection IVPUSH Q6H PRN NAUSEA Pantoprazole Sodium 40 mg 12/29/18 10:00 01/11/19 10:30 Protonix Iv IVPUSH 40 mg DAILY BOD[facility]IO Administration Potassium Phos/Sodium Phos 1 packet 12/28/18 14:00 01/11/19 06:27 Phos-Nak Packet - PO 1 packet TID OBDULIO Administration Propranolol HCl 60 mg 12/28/18 22:00 01/11/19 10:29 Inderal - PO Not Given Q6H OBDULIO Propranolol HCl 1 mg 12/28/18 20:38 Inderal Injection - IVPUSH Q1H PRN TACHYCARDIA Tramadol HCl 50 mg 01/08/19 17:44 01/09/19 09:47 Ultram - PO 50 mg Q6H PRN Administration PAIN LEVEL 7 - 10 CBC, BMP 01/11/19 05:30 01/11/19 05:30 ecg: aflutter with 2:1 avb, vr 127, no ischemic changes CXR 12/28: slight incr bilat pulm/pleural changes Echo 12/2018: small LV cavity, hyperdynamic. mild-mod dilated RV, hyperdynamic RVSF. mild ERIK. mild-mod MR (eccentric). RVSP 30-35 CTA chest acute RLL PE, mod R and small left pleural effusions tele: AF/flutter, 120s a/p: 83 f hx dementia, afib/flutter, gerd, htn, tia, sent from [place] for coffee ground emesis. aflutter: - was on diltiazem 60 mg QID and propranolol 120 mg BID at home-->npo postop bowel surgery with tachycardia and hypotensive on levophed-->amio gtt started with persistent tachycardia. hemodynamics improved-->amio d/c'd, prn iv diltiazem ordered - 12/25: H?R 140s, no response to IV diltiazem pushes, SBP dropped to 80s. d/w'd icu team: will start non-chronotropic vasoconstrictor pressor, then initiate low dose PO and IV propranolol trial for HR control. - eliquis held briefly during 12/05 admit with GIB, resumed on discharge with plan for outpt GI scopes. H/H were stable when arrived this time with SBO, eliquis now on hold for surgery - 12/26: HR remains 130s, will increase propranolol to 60 mg QID (home dose is propranolol long acting 120 mg BID). If BP tolerates would restart PO diltiazem as well, at home was on 60 mg QID - 12/27: eliquis resumed, HR 130s. change eliquis to 5 mg BID dosing (age >80 however she is >60 kg and Cr <1.5, does not meet criteria for low dose and was on full dose prior). BP improved today, will restart diltiazem 60 mg Q6H 12/28: HR improved but still fast at times, cont same dilt/inderal for now as bp on low side and monitor on tele. -12/29-: rates good, BPs soft--same meds -01/04-: rvr to 120s at times, pt tolerating and bp low side so cont same rate meds for now -01/07: 3 doses of propranolol held for low BP yesterday, rate 120s, received diltiazem. d/w RN to give propranolol first, monitor BP and give diltiazem if BP stable K 2.9, replete lytes for K >4.0, Mg >2.0 -01/08: bp consistently 90s > 80s systolic, rates rapid--start digoxin (may need load if remains tachy later) -01/09: did not receive propranolol or diltiazem due to low BP yesterday, HR remains 120s on digoxin. start amiodarone gtt -01/10-: rate 90s-120s on amiodarone, propranolol and diltiazem held due to low BP. cont amiodarone - holding eliquis, on heparin gtt s/p chest tube. restart eliquis when able per IR hypotension - ? intravasc contracted (low albumin/low oncotic pressure, on lasix) - deferring pressors at present, given normal mentation Pulmonary embolism, pleural effusions, acute diast CHF, severe hypoalbuminuria: - pulm congestion on CXR after receiving IVF here, was diuresed - echo with dilated RV (normal function), no signific pulm HTN per TR gradient measurable on that study. Pt at risk for PE given: (1) AC had been held here for several days preop/postop, (2) she has new dx of colon malignancy; (3) she is postop and bedbound. - LE venous dopplers no DVT - CTA chest acute RLL PE - on eliquis - betzy pleural effusions on CTA 01/02- had been getting prn iv lasix - CT abd/pelvis 01/05 shows large R pleural effusion increased in size - now on lasix 40 mg IV BID, continue - pleural effusion mgmt per crit care, thoracic surgery, s/p chest tube with 1200 cc serosanguinous drainage sbo, colon mass: -s/p surgery, found to have colon ca, onc following
--- NOTE | 2019-01-11 10:44 | PN ---
Progress Note (short form) - Note Progress Note: asymptomatic. denies CP, palpitations, SOB, fever, chills, N/V/C/D Current Medications Generic Name Dose Route Start Last Admin Trade Name Freq PRN Reason Stop Dose Admin Acetaminophen 650 mg 01/03/19 08:46 Tylenol - PO Q6H PRN PAIN LEVEL 1-5 Diltiazem HCl 60 mg 12/29/18 00:00 01/11/19 06:24 Cardizem - PO 60 mg Q6HPO OBDULIO Administration Diltiazem HCl 10 mg 12/28/18 20:38 Cardizem Injection - IVPUSH Q4H PRN TACHYCARDIA Fluticasone Propionate 2 spray 12/29/18 10:00 01/11/19 10:33 Flonase - NS 2 spray DAILY OBDULIO Administration Furosemide 40 mg 01/06/19 06:00 01/11/19 06:24 Lasix Injection - IVPUSH 40 mg BID@0600,1400 OBDULIO Administration Heparin Sodium (Porcine) 1,000 unit 01/05/19 21:00 01/06/19 12:00 Heparin - IVPUSH 1,000 unit PRN PRN Administration Heparin Heparin Sodium (Porcine) 5,000 unit 01/05/19 21:00 01/08/19 23:07 Heparin - IVPUSH 5,000 unit PRN PRN Administration Heparin Heparin Sodium/Dextrose 25,000 units in 500 mls @ 20 mls/hr 01/05/19 21:00 10:28 Heparin Infusion - IVPB 950 units/hr TITR OBDULIO 19 mls/hr Administration Protocol 1,000 UNITS/HR Amiodarone HCl/Dextrose 360 mg in 200 mls @ 16.667 mls/hr 01/09/19 16:22 18:21 Nexterone 360 Mg/200 Ml Bag IVPB 16.667 mls/hr ASDIR OBD[facility]IO Administration Protocol 0.5 MG/MIN Magnesium Oxide 400 mg 01/03/19 22:00 01/11/19 10:28 Mag-Ox - PO 400 mg BID OBDULIO Administration Ondansetron HCl 4 mg 12/28/18 20:38 Zofran Injection IVPUSH Q6H PRN NAUSEA Pantoprazole Sodium 40 mg 12/29/18 10:00 01/11/19 10:30 Protonix Iv IVPUSH 40 mg DAILY OBD[facility]IO Administration Potassium Phos/Sodium Phos 1 packet 12/28/18 14:00 01/11/19 06:27 Phos-Nak Packet - PO 1 packet TID OBDULIO Administration Propranolol HCl 60 mg 12/28/18 22:00 01/11/19 10:29 Inderal - PO Not Given Q6H OBDULIO Propranolol HCl 1 mg 12/28/18 20:38 Inderal Injection - IVPUSH Q1H PRN TACHYCARDIA Tramadol HCl 50 mg 01/08/19 17:44 01/09/19 09:47 Ultram - PO 50 mg Q6H PRN Administration PAIN LEVEL 7 - 10 Last Vital Signs Temp Pulse Resp BP Pulse Ox 98.7 F 121 H 16 121/69 99 01/11/19 06:00 01/11/19 06:00 01/11/19 06:00 01/11/19 06:00 01/10/19 20:01 Intake & Output 01/08/19 01/09/19 01/10/19 01/11/19 23:59 23:59 23:59 23:59 Intake Total 206 203 8276.6 Output Total 1200 270 Balance -736 -20 1655.6 Weight 139 lb 7 oz General NAD CV S1 S2 tachy Lungs CTA B/L no wheezing/rales/rhonchi Abdomen soft NT/ND midline surgical incision with good approximation. +BS Extremities no pedal edema CBCD WBC 13.3 K/mm3 (4.0-10.0) H 01/11/19 05:30 RBC 3.34 M/mm3 (3.60-5.2) L 01/11/19 05:30 Hgb 7.6 GM/dL (10.7-15.3) L 01/11/19 05:30 Hct 25.0 % (32.4-45.2) L 01/11/19 05:30 MCV 74.9 fl (80-96) L 01/11/19 05:30 MCHC 30.5 g/dl (32.0-36.0) L 01/11/19 05:30 RDW 18.1 % (11.6-15.6) H 01/11/19 05:30 Plt Count 353 K/MM3 (134-434) 01/11/19 05:30 MPV 8.0 fl (7.5-11.1) 01/11/19 05:30 CMP Sodium 132 mmol/L (136-145) L 01/11/19 05:30 Potassium 3.1 mmol/L (3.5-5.1) L 01/11/19 05:30 Chloride 90 mmol/L (98-107) L 01/11/19 05:30 Carbon Dioxide 33 mmol/L (21-32) H 01/11/19 05:30 Anion Gap 8 MMOL/L (8-16) 01/11/19 05:30 BUN 7 mg/dL (7-18) 01/11/19 05:30 Creatinine 0.4 mg/dL (0.55-1.3) L 01/11/19 05:30 Creat Clearance w eGFR 151.70 (>60) 01/11/19 05:30 Calcium 7.1 mg/dL (8.5-10.1) L 01/11/19 05:30 Total Bilirubin 0.2 mg/dL (0.2-1) 01/11/19 05:30 AST 7 U/L (15-37) L 01/11/19 05:30 ALT 10 U/L (13-61) L 01/11/19 05:30 Alkaline Phosphatase 67 U/L (45-117) 01/11/19 05:30 Total Protein 4.1 g/dl (6.4-8.2) L 01/11/19 05:30 Albumin 1.2 g/dl (3.4-5.0) L 01/11/19 05:30 Assessment and PLan 83 year old female with PMH atrial fibrillation on Eliquis, GERD, esophagitis, dementia, hallucinations, ataxia, HTN, benign neoplasm of cerebral meninges, who presents to the emergency department via EMS from long-term 12/21/18 due to nausea and vomiting. Pt was in atrial fibrillation with RVR at presentation. Pt was recently admitted to [facility] 12/13/18-12/20/18 for coffee ground emesis, EGD was negative, colonoscopy was planned for outpatient secondary to electrolyte imbalance and tachycardia. Abdominal CT w/o contrast 12/21/18 shows diffuse to moderate marked dilatation of the small bowel including the terminal ileum with significant dilatation of the cecum and proximal ascending colon up to a point of transition seen in the proximal/mid ascending colon where there is suggestion of wall thickening and collapse of the rest of the colon consistent with obstruction. Pt had right hemicolectomy for obstruction . Post surgery pt was tachycardic and hypotensive and noted to be in aflutter 1. Atrial flutter-with RVR. difficult to control. has failed digoxin therapy. on amio ggt without good response. BP too long for most other medications. would benefit from ablation however due to comorbidities not a good candidate at this time. spoke with cardio and will possible stop amio ggt in the AM. on hep ggt, can likely switch back to elquis tomorrow. Cardio on board 2. Large bowel obstruction secondary to right colon mass- s/p exploratory laparotomy, right hemicolectomy, primary ileotransverse anastamosis on 12/22. will advance diet. brook have been removed. surgery om board. 3. Moderately differentiated adenocarcinoma of the colon- [id number]. oncology has been consulted, however likely not a candidate for treatment due to hypoalbuminemia and poor functional status. outpatient follow up. 4. RLL PE- on hep ggt, switch to po when feasible 5. R pleural effusion- s/p chest tube 01/08. minimal output in last 24H, will clamp tube today and repeat CXR tomorrow, will hopefully be able to pull tube tomorrow. Cytology report negative for malignancy. on lasix 40mg BID IV, will f/ u repeat CXR tomorrow and determine if can be transition to po 6. Iron def anemia-will give venofer x 5 days. Hgb stable. had serosangenous output into chest tube on placement, has now resolved. monitor Hgb 7. hypokalemia-Kcl po 8. Hypophosphatemia- neutraphos 9. Hypomagnesemia- has been on standing supplementation. will give IV 10. hypervolemia hyponatremia- on lasix IV. will monitor volume status. 11. HTN- hypotensive here. hold oral antihypertensive agents 12. GERD- Continue Protonix 13. Dementia 14. DVT ppx- hep ggt 15. will need THONG when medically optimized. Visit type - Emergency Visit Emergency Visit: Yes ED Registration Date: 12/22/18 Care time: The patient presented to the Emergency Department on the above date and was hospitalized for further evaluation of their emergent condition. - New Patient This patient is new to me today: No - Critical Care Critical Care patient: No - Discharge Referral Referred to [facility] No
--- NOTE | 2019-01-11 12:27 | PN ---
Progress Note (short form) - Note Progress Note: Resting in NAD. CT has been clamped. Denies shortness of breath or chest pain. No CXR Intake & Output 01/08/19 01/09/19 01/10/19 01/11/19 23:59 23:59 23:59 23:59 Intake Total 263 594 0886.6 Output Total 1200 270 Balance -736 -20 1655.6 Weight 139 lb 7 oz Last Vital Signs Temp Pulse Resp BP Pulse Ox 98.7 F 121 H 16 121/69 99 01/11/19 06:00 01/11/19 06:00 01/11/19 06:00 01/11/19 06:00 01/10/19 20:01 Active Medications Acetaminophen (Tylenol -) 650 mg PO Q6H PRN PRN Reason: PAIN LEVEL 1-5 Diltiazem HCl (Cardizem -) 60 mg PO Q6HPO [facility] Last Admin: 01/11/19 06:24 Dose: 60 mg Diltiazem HCl (Cardizem Injection -) 10 mg IVPUSH Q4H PRN PRN Reason: TACHYCARDIA Fluticasone Propionate (Flonase -) 2 spray NS DAILY [facility] Last Admin: 01/11/19 10:33 Dose: 2 spray Furosemide (Lasix Injection -) 40 mg IVPUSH BID@0600,1400 [facility] Last Admin: 01/11/19 06:24 Dose: 40 mg Heparin Sodium (Porcine) (Heparin -) 1,000 unit IVPUSH PRN PRN PRN Reason: Heparin Last Admin: 01/06/19 12:00 Dose: 1,000 unit Heparin Sodium (Porcine) (Heparin -) 5,000 unit IVPUSH PRN PRN PRN Reason: Heparin Last Admin: 01/08/19 23:07 Dose: 5,000 unit Heparin Sodium/Dextrose (Heparin Infusion -) 25,000 units in 500 mls @ 20 mls/ hr IVPB TITR [facility]; Protocol Last Admin: 01/11/19 10:28 Dose: 950 units/hr, 19 mls/hr Amiodarone HCl/Dextrose (Nexterone 360 Mg/200 Ml Bag) 360 mg in 200 mls @ 16.667 mls/hr IVPB ASDIR [facility]; Protocol Last Admin: 01/10/19 18:21 Dose: 16.667 mls/hr Iron Sucrose 200 mg/ Sodium (Chloride) 100 mls @ 100 mls/hr IVPB DAILY [facility] Stop: 01/15/19 23:59 Magnesium Oxide (Mag-Ox -) 400 mg PO BID [facility] Last Admin: 01/11/19 10:28 Dose: 400 mg Magnesium Sulfate (Magnesium Sulfate) 2 gm IVPB ONCE ONE Stop: 01/11/19 11:28 Ondansetron HCl (Zofran Injection) 4 mg IVPUSH Q6H PRN PRN Reason: NAUSEA Pantoprazole Sodium (Protonix Iv) 40 mg IVPUSH DAILY [facility] Last Admin: 01/11/19 10:30 Dose: 40 mg Potassium Chloride (Potassium Chloride Oral Liquid) 40 meq PO ONCE ONE Stop: 01/11/19 11:27 Potassium Phos/Sodium Phos (Phos-Nak Packet -) 1 packet PO TID [facility] Last Admin: 01/11/19 06:27 Dose: 1 packet Potassium Phos/Sodium Phos (Phos-Nak Packet -) 2 packet PO ONCE ONE Stop: 01/11/19 11:28 Propranolol HCl (Inderal -) 60 mg PO Q6H [facility] Last Admin: 01/11/19 10:29 Dose: Not Given Propranolol HCl (Inderal Injection -) 1 mg IVPUSH Q1H PRN PRN Reason: TACHYCARDIA Tramadol HCl (Ultram -) 50 mg PO Q6H PRN PRN Reason: PAIN LEVEL 7 - 10 Last Admin: 01/09/19 09:47 Dose: 50 mg Gen: NAD at rest Heart: S1S2 Lung: Clamped Right pigtail catheter, decreased breath sounds at the bases Abd: soft, nontender Ext: no edema Laboratory Results - last 24 hr 01/08/19 01/11/19 01/11/19 15:30 05:30 05:30 WBC 13.3 H RBC 3.34 L Hgb 7.6 L Hct 25.0 L MCV 74.9 L MCH 22.8 L MCHC 30.5 L RDW 18.1 H Plt Count 353 MPV 8.0 PT with INR INR PTT (Actin FS) 68.8 H Sodium Potassium Chloride Carbon Dioxide Anion Gap BUN Creatinine Creat Clearance w eGFR Random Glucose Calcium Phosphorus Magnesium Total Bilirubin AST ALT Alkaline Phosphatase Total Protein Albumin Fluid Glucose 59 Fluid Total Protein 2.8 Fluid Albumin 1.3 Body Fluid LDH Source 413 Fluid Amylase 24 Fluid Triglycerides 34 Digoxin 01/11/19 01/11/19 05:30 05:30 WBC RBC Hgb Hct MCV MCH MCHC RDW Plt Count MPV PT with INR 18.30 H INR 1.54 H PTT (Actin FS) Sodium 132 L Potassium 3.1 L Chloride 90 L Carbon Dioxide 33 H Anion Gap 8 BUN 7 Creatinine 0.4 L Creat Clearance w eGFR 151.70 Random Glucose 124 H Calcium 7.1 L Phosphorus 2.2 L Magnesium 1.4 L Total Bilirubin 0.2 AST 7 L ALT 10 L Alkaline Phosphatase 67 Total Protein 4.1 L Albumin 1.2 L Fluid Glucose Fluid Total Protein Fluid Albumin Body Fluid LDH Source Fluid Amylase Fluid Triglycerides Digoxin 0.45 L A/P Large Bowel Obstruction/Ascending Colon Mass Newly Diagnosed Colon CA S/P Ex-lap/right hemicolectomy/primary ileotransverse anastamosis Atrial Fibrillation/Flutter with RVR Acute RLL Pulmonary Embolism Right Pleural effusion: Pleural studies are pending HTN GERD Dementia New small Right Apical PTX 01/09 - Check CXR: possible removal of pigtail today - Rate control per Cardiology - Incentive spirometry - IV Heparin for anticoagulation - PO as tolerated - ABX per ID Dr Monroe
[2019-01-11] MEDS ORDERED: POTASSIUM CHLORIDE ORAL LIQUID 20 MEQ/15 ML PO ONE (13:30)
[2019-01-11] MEDS ORDERED: PT OWN MED DRAWER 7, Y5N ONE (13:36)
[2019-01-11] MEDS ORDERED: MAGNESIUM SULF 50% (8.12 MEQ/2 ML-1 GM VIAL) IVPB ONE (13:45)
[2019-01-11] MEDS ORDERED: NAPH,MB-DB/K PH,MBDB POWDER PACKET PO ONE (14:15)
[2019-01-11] MEDS: IRON SUCROSE INJECTION 200 MG in SODIUM CHLORIDE 90 ML IVPB SCH (16:26)
[2019-01-11] MEDS: AMIODARONE IN DEXTROSE,ISO-OSM 360 MG/200 ML BAG IVPB SCH (16:31)
--- NOTE | 2019-01-11 16:53 | PN ---
Progress Note, Physician History of Present Illness: no complaints no new issues chest tube draining - Current Medication List Current Medications: Active Medications Acetaminophen (Tylenol -) 650 mg PO Q6H PRN PRN Reason: PAIN LEVEL 1-5 Diltiazem HCl (Cardizem -) 60 mg PO Q6HPO [facility] Last Admin: 01/11/19 13:33 Dose: 60 mg Diltiazem HCl (Cardizem Injection -) 10 mg IVPUSH Q4H PRN PRN Reason: TACHYCARDIA Fluticasone Propionate (Flonase -) 2 spray NS DAILY [facility] Last Admin: 01/11/19 10:33 Dose: 2 spray Furosemide (Lasix Injection -) 40 mg IVPUSH BID@0600,1400 [facility] Last Admin: 01/11/19 13:33 Dose: 40 mg Heparin Sodium (Porcine) (Heparin -) 1,000 unit IVPUSH PRN PRN PRN Reason: Heparin Last Admin: 01/06/19 12:00 Dose: 1,000 unit Heparin Sodium (Porcine) (Heparin -) 5,000 unit IVPUSH PRN PRN PRN Reason: Heparin Last Admin: 01/08/19 23:07 Dose: 5,000 unit Heparin Sodium/Dextrose (Heparin Infusion -) 25,000 units in 500 mls @ 20 mls/ hr IVPB TITR [facility]; Protocol Last Admin: 01/11/19 10:28 Dose: 950 units/hr, 19 mls/hr Amiodarone HCl/Dextrose (Nexterone 360 Mg/200 Ml Bag) 360 mg in 200 mls @ 16.667 mls/hr IVPB ASDIR [facility]; Protocol Last Admin: 01/11/19 16:31 Dose: 16.667 mls/hr Iron Sucrose 200 mg/ Sodium (Chloride) 100 mls @ 100 mls/hr IVPB DAILY [facility] Stop: 01/15/19 13:59 Last Admin: 01/11/19 16:26 Dose: 100 mls/hr Magnesium Oxide (Mag-Ox -) 400 mg PO BID [facility] Last Admin: 01/11/19 10:28 Dose: 400 mg Ondansetron HCl (Zofran Injection) 4 mg IVPUSH Q6H PRN PRN Reason: NAUSEA Pantoprazole Sodium (Protonix Iv) 40 mg IVPUSH DAILY [facility] Last Admin: 01/11/19 10:30 Dose: 40 mg Potassium Phos/Sodium Phos (Phos-Nak Packet -) 1 packet PO TID [facility] Last Admin: 01/11/19 13:33 Dose: 1 packet Propranolol HCl (Inderal -) 60 mg PO Q6H [facility] Last Admin: 01/11/19 16:43 Dose: Not Given Propranolol HCl (Inderal Injection -) 1 mg IVPUSH Q1H PRN PRN Reason: TACHYCARDIA Tramadol HCl (Ultram -) 50 mg PO Q6H PRN PRN Reason: PAIN LEVEL 7 - 10 Last Admin: 01/09/19 09:47 Dose: 50 mg - Objective Vital Signs: Vital Signs Temperature 98.6 F 01/11/19 14:00 Pulse Rate 123 H 01/11/19 16:43 Respiratory Rate 20 01/11/19 14:00 Blood Pressure 96/51 L 01/11/19 16:43 O2 Sat by Pulse Oximetry (%) 99 01/10/19 20:01 Constitutional: Yes: No Distress, Calm Cardiovascular: Yes: Tachycardia, S1, S2 Respiratory: Yes: Regular, Poor Air Entry Gastrointestinal: Yes: Normal Bowel Sounds, Soft Musculoskeletal: Yes: WNL Extremities: Yes: WNL Neurological: Yes: Alert, Other Psychiatric: Yes: Other Labs: CBC, BMP 01/11/19 05:30 01/11/19 05:30 INR, PTT INR 1.54 (0.83-1.09) H 01/11/19 05:30 - ....Imaging Chest X-ray: Report Reviewed, Image Reviewed Assessment/Plan - Problems (1) Colon obstruction Code(s): K56.609 - UNSP INTESTNL OBST, UNSP TO PARTIAL VERSUS COMPLETE OBST (2) Atrial fibrillation with RVR Code(s): I48.91 - UNSPECIFIED ATRIAL FIBRILLATION (3) Dementia Code(s): F03.90 - UNSPECIFIED DEMENTIA WITHOUT BEHAVIORAL DISTURBANCE (4) Esophagitis Code(s): K20.9 - ESOPHAGITIS, UNSPECIFIED (5) GERD (gastroesophageal reflux disease) Code(s): K21.9 - GASTRO-ESOPHAGEAL REFLUX DISEASE WITHOUT ESOPHAGITIS (6) Hypertension Code(s): I10 - ESSENTIAL (PRIMARY) HYPERTENSION Qualifiers: Hypertension type: essential hypertension Qualified Code(s): I10 - Essential (primary) hypertension leukocytosis pleural effusion pe pleural effusion has increased plan continue abx monitor drain rest as per the team will have to make a final plan
[2019-01-11] MEDS ORDERED: HEPARIN NA (PORCINE) 5,000 UNITS/ML 1ML VIAL IVPUSH PRN ×2 (21:16)
[2019-01-12] MEDS: dilTIAZem HCL 60 MG TABLET (FP) PO SCH ×5 (00:10→23:58)
[2019-01-12] MEDS: NAPH,MB-DB/K PH,MBDB POWDER PACKET PO SCH ×3 (05:59→21:01)
[2019-01-12] MEDS: FUROSEMIDE 40 MG/4 ML INJECTABLE VIAL IVPUSH SCH ×2 (06:20→14:09)
[2019-01-12 06:45] LABS: BASO % 0.2 % (0-2.0); EOS % 0.6 % (0-4.5); HEMOGLOBIN 7.5 GM/dL (10.7-15.3); LYMPH % 11.4 % (8-40); MCHC 31.2 g/dl (32.0-36.0); MEAN CELL VOLUME 73.9 fl (80-96); MEAN PLT VOLUME 7.9 fl (7.5-11.1); MONO % 11.4 % (3.8-10.2); NEUT % 76.4 % (42.8-82.8); PLATELET COUNT 339 K/MM3 (134-434); RBC 3.25 M/mm3 (3.60-5.2); RDW 18.4 % (11.6-15.6)
[2019-01-12 07:18] LABS: ANION GAP 5 MMOL/L (8-16); BLOOD UREA NITROGEN 9 mg/dL (7-18); CALCIUM 7.2 mg/dL (8.5-10.1); CHLORIDE 92 mmol/L (98-107); CO2 35 mmol/L (21-32); CREATININE 0.4 mg/dL (0.55-1.3); GLUCOSE,RANDOM 144 mg/dL (74-106); MAGNESIUM 1.9 mg/dL (1.8-2.4); POTASSIUM 3.2 mmol/L (3.5-5.1); SODIUM 131 mmol/L (136-145)
--- NOTE | 2019-01-12 07:52 | PN ---
Progress Note, Physician Chief Complaint: Patient denies any SOB or chest pain still draining from chest tube History of Present Illness: 83 year old female with PMH atrial fibrillation on Eliquis, GERD, esophagitis, dementia, ataxia, HTN, benign neoplasm of cerebral meninges, was admitted from a fdc 12/21/18 with nausea and vomiting, w/u shows atrial fibrillation with RVR on arrival, patient was admitted at [facility] 12/13/18-12/20/18 for coffee ground emesis, EGD was negative, colonoscopy was deferred for outpatient secondary to electrolyte imbalance and tachycardia, CT Abd w/o contrast 12/21/18 shows diffuse to moderate marked dilatation of the small bowel including the terminal ileum with significant dilatation of the cecum and proximal ascending colon up to a point of transition seen in the proximal/mid ascending colon consistent with obstruction underwent right hemicolectomy on , complicated hospital course with Rt sided effusion S/P PIG tail , poorly rate controlled Aflutter with RVR and hypotention, malnutrition, now rate controlled in process of Rt sided chest tube removal needs medical optimization. - Current Medication List Current Medications: Active Medications Acetaminophen (Tylenol -) 650 mg PO Q6H PRN PRN Reason: PAIN LEVEL 1-5 Diltiazem HCl (Cardizem -) 60 mg PO Q6HPO [facility] Last Admin: 01/12/19 05:58 Dose: 60 mg Diltiazem HCl (Cardizem Injection -) 10 mg IVPUSH Q4H PRN PRN Reason: TACHYCARDIA Fluticasone Propionate (Flonase -) 2 spray NS DAILY [facility] Last Admin: 01/11/19 10:33 Dose: 2 spray Furosemide (Lasix Injection -) 40 mg IVPUSH BID@0600,1400 [facility] Last Admin: 01/12/19 06:20 Dose: 40 mg Heparin Sodium (Porcine) (Heparin -) 1,000 unit IVPUSH PRN PRN PRN Reason: Heparin Heparin Sodium (Porcine) (Heparin -) 5,000 unit IVPUSH PRN PRN PRN Reason: Heparin Amiodarone HCl/Dextrose (Nexterone 360 Mg/200 Ml Bag) 360 mg in 200 mls @ 16.667 mls/hr IVPB ASDIR [facility]; Protocol Last Admin: 01/11/19 16:31 Dose: 16.667 mls/hr Iron Sucrose 200 mg/ Sodium (Chloride) 100 mls @ 100 mls/hr IVPB DAILY [facility] Stop: 01/15/19 13:59 Last Admin: 01/11/19 16:26 Dose: 100 mls/hr Heparin Sodium/Dextrose (Heparin Infusion -) 25,000 units in 500 mls @ 16 mls/ hr IVPB TITR [facility]; Protocol Last Admin: 01/11/19 22:13 Dose: 950 unit/hr, 19 mls/hr Magnesium Oxide (Mag-Ox -) 400 mg PO BID [facility] Last Admin: 01/11/19 22:13 Dose: 400 mg Ondansetron HCl (Zofran Injection) 4 mg IVPUSH Q6H PRN PRN Reason: NAUSEA Pantoprazole Sodium (Protonix Iv) 40 mg IVPUSH DAILY [facility] Last Admin: 01/11/19 10:30 Dose: 40 mg Potassium Phos/Sodium Phos (Phos-Nak Packet -) 1 packet PO TID [facility] Last Admin: 01/12/19 05:59 Dose: 1 packet Propranolol HCl (Inderal -) 60 mg PO Q6H [facility] Last Admin: 01/12/19 05:59 Dose: Not Given Propranolol HCl (Inderal Injection -) 1 mg IVPUSH Q1H PRN PRN Reason: TACHYCARDIA Tramadol HCl (Ultram -) 50 mg PO Q6H PRN PRN Reason: PAIN LEVEL 7 - 10 Last Admin: 01/09/19 09:47 Dose: 50 mg - Objective Vital Signs: Vital Signs Temperature 99.7 F H 01/12/19 06:00 Pulse Rate 81 01/12/19 06:00 Respiratory Rate 22 H 01/12/19 06:00 Blood Pressure 109/58 L 01/12/19 06:00 O2 Sat by Pulse Oximetry (%) 99 01/11/19 20:54 Elderly F not in distress comfortable HEENT: Mm moist, mild anemia NECK: Supple, No JVD No Bruit CHEST: Rt sided chest tube AE + CVS; S1 S2 Tachycardia Irr ABD: No distention, soft non tender BS + EXT: trace edema feet, pulses +, 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 Labs: CBC,CMP CBC, BMP 01/12/19 05:30 01/12/19 05:30 - ....Imaging X-ray: Report Reviewed (01/12: Enlarging Rt Pleural Effusion with Left Basal atelctasis in comparison with 01/09) Problem List - Problems (1) Colon obstruction Assessment/Plan: Large bowel obstruction secondary to right colon mass- s/p exploratory laparotomy, right hemicolectomy, primary ileotransverse anastamosis on 12/22. will advance diet. brook have been removed. surgery om board. Moderately differentiated adenocarcinoma of the colon- [id number]. oncology has been consulted , however likely not a candidate for treatment due to hypoalbuminemia and poor functional status. outpatient follow up. Code(s): K56.609 - UNSP INTESTNL OBST, UNSP TO PARTIAL VERSUS COMPLETE OBST (2) Atrial fibrillation with RVR Assessment/Plan: Atrial flutter-with RVR. difficult to control. has failed digoxin therapy. on amio ggt without good response. BP too long for most other medications. would benefit from ablation however due to comorbidities not a good candidate at this time. spoke with cardio and will possible stop amio ggt in the AM. on hep ggt, will consider switching back to molly Cardio on board Code(s): I48.91 - UNSPECIFIED ATRIAL FIBRILLATION (3) Hypertension Assessment/Plan: Off BP mreds due to Hypotention Code(s): I10 - ESSENTIAL (PRIMARY) HYPERTENSION Qualifiers: Hypertension type: essential hypertension Qualified Code(s): I10 - Essential (primary) hypertension (4) Pulmonary embolism Assessment/Plan: RLL PE- on hep ggt. Code(s): I26.99 - OTHER PULMONARY EMBOLISM WITHOUT ACUTE COR PULMONALE (5) Pleural effusion Assessment/Plan: R pleural effusion- s/p chest tube 01/08. minimal output in last 24H, will clamp tube today and repeat CXR tomorrow, will hopefully be able to pull tube tomorrow. Cytology report negative for malignancy. on lasix 40mg BID IV, will f/ u repeat CXR shows worsening Rt effusion. Discussed with Pulmonary consult will discuss with CT surgeon. Code(s): J90 - PLEURAL EFFUSION, NOT ELSEWHERE CLASSIFIED (6) Hypokalemia Assessment/Plan: K 3.2 will replete and F/U BMP and Magnesium level. Code(s): E87.6 - HYPOKALEMIA (7) Hypomagnesemia Assessment/Plan: Repleted today mag is 1.9. Code(s): E83.42 - HYPOMAGNESEMIA (8) Hypoalbuminemia Assessment/Plan: Nutritional evaluation Code(s): E88.09 - OTH DISORDERS OF PLASMA-PROTEIN METABOLISM, NEC (9) Dementia Assessment/Plan: Chronic no active issue Code(s): F03.90 - UNSPECIFIED DEMENTIA WITHOUT BEHAVIORAL DISTURBANCE (10) Anemia Assessment/Plan: Iron def anemia-will give venofer . Hb 7.5 almost at base line will f/u PM CBC , had serosangenous output into chest tube on placement, has now resolved. monitor Hgb Code(s): D64.9 - ANEMIA, UNSPECIFIED (11) Hyponatremia Assessment/Plan: Hypervolumic will add Salt liberal Diet. Code(s): E87.1 - HYPO-OSMOLALITY AND HYPONATREMIA
[2019-01-12] MEDS: MAGNESIUM OXIDE 400 MG TABLET (FP) PO SCH ×2 (10:00→21:01)
[2019-01-12] MEDS: PANTOPRAZOLE SODIUM 40 MG VIAL IVPUSH SCH (10:00)
[2019-01-12] MEDS: POTASSIUM CHLORIDE TABS 20 MEQ TABLET.ER (FP) PO SCH (10:00)
[2019-01-12] MEDS ORDERED: PT OWN MED DRAWER 7, Y5N ONE (10:26)
--- NOTE | 2019-01-12 10:55 | PN ---
Progress Note (short form) - Note Progress Note: s: no cp sob palps dizzy o: Vital Signs Period Temp Pulse Resp BP Sys/Germain Pulse Ox Last 24 Hr 96.7 F-99.9 F 81-124 16-23 95-134/51-71 99 nad, no jvd irreg s1s2 no mrg cta bl nl eff awake, alert no jaundice diaphoresis no le e/c/c abd nt nd pos bs Current Medications Generic Name Dose Route Start Last Admin Trade Name Freq PRN Reason Stop Dose Admin Acetaminophen 650 mg 01/03/19 08:46 Tylenol - PO Q6H PRN PAIN LEVEL 1-5 Digoxin 0.25 mg 01/12/19 11:00 Lanoxin - PO DAILY [facility] Diltiazem HCl 60 mg 12/29/18 00:00 01/12/19 05:58 Cardizem - PO 60 mg Q6HPO [facility] Administration Diltiazem HCl 10 mg 12/28/18 20:38 Cardizem Injection - IVPUSH Q4H PRN TACHYCARDIA Fluticasone Propionate 2 spray 12/29/18 10:00 01/11/19 10:33 Flonase - NS 2 spray DAILY [facility] Administration Furosemide 40 mg 01/06/19 06:00 01/12/19 06:20 Lasix Injection - IVPUSH 40 mg BID@0600,1400 [facility] Administration Heparin Sodium (Porcine) 1,000 unit 01/11/19 21:16 Heparin - IVPUSH PRN PRN Heparin Heparin Sodium (Porcine) 5,000 unit 01/11/19 21:16 Heparin - IVPUSH PRN PRN Heparin Iron Sucrose 200 mg/ Sodium 100 mls @ 100 mls/hr 01/11/19 14:00 01/11/19 16: 26 Chloride IVPB 01/15/19 13:59 100 mls/hr DAILY [facility] Administration Heparin Sodium/Dextrose 25,000 units in 500 mls @ 16 mls/hr 01/11/19 21:30 22:13 Heparin Infusion - IVPB 950 unit/hr TITR [facility] 19 mls/hr Administration Protocol 800 UNIT/HR Magnesium Oxide 400 mg 01/03/19 22:00 01/11/19 22:13 Mag-Ox - PO 400 mg BID [facility] Administration Ondansetron HCl 4 mg 12/28/18 20:38 Zofran Injection IVPUSH Q6H PRN NAUSEA Pantoprazole Sodium 40 mg 12/29/18 10:00 01/11/19 10:30 Protonix Iv IVPUSH 40 mg DAILY [facility] Administration Potassium Chloride 40 meq 01/12/19 10:00 K-Dur - PO DAILY [facility] Potassium Phos/Sodium Phos 1 packet 12/28/18 14:00 01/12/19 05:59 Phos-Nak Packet - PO 1 packet TID [facility] Administration Propranolol HCl 60 mg 12/28/18 22:00 01/12/19 05:59 Inderal - PO Not Given Q6H [facility] Propranolol HCl 1 mg 12/28/18 20:38 Inderal Injection - IVPUSH Q1H PRN TACHYCARDIA Tramadol HCl 50 mg 01/08/19 17:44 01/09/19 09:47 Ultram - PO 50 mg Q6H PRN Administration PAIN LEVEL 7 - 10 CBC, BMP 01/12/19 05:30 01/12/19 05:30 2 ecg: aflutter with 2:1 avb, vr 127, no ischemic changes CXR 12/28: slight incr bilat pulm/pleural changes Echo 12/2018: small LV cavity, hyperdynamic. mild-mod dilated RV, hyperdynamic RVSF. mild ERIK. mild-mod MR (eccentric). RVSP 30-35 CTA chest acute RLL PE, mod R and small left pleural effusions tele: AF/flutter, 120s a/p: 83 f hx dementia, afib/flutter, gerd, htn, tia, sent from [place] for coffee ground emesis. aflutter: - was on diltiazem 60 mg QID and propranolol 120 mg BID at home-->npo postop bowel surgery with tachycardia and hypotensive on levophed-->amio gtt started with persistent tachycardia. hemodynamics improved-->amio d/c'd, prn iv diltiazem ordered - 12/25: H?R 140s, no response to IV diltiazem pushes, SBP dropped to 80s. d/w'd icu team: will start non-chronotropic vasoconstrictor pressor, then initiate low dose PO and IV propranolol trial for HR control. - eliquis held briefly during 12/05 admit with GIB, resumed on discharge with plan for outpt GI scopes. H/H were stable when arrived this time with SBO, eliquis now on hold for surgery - 12/26: HR remains 130s, will increase propranolol to 60 mg QID (home dose is propranolol long acting 120 mg BID). If BP tolerates would restart PO diltiazem as well, at home was on 60 mg QID - 12/27: eliquis resumed, HR 130s. change eliquis to 5 mg BID dosing (age >80 however she is >60 kg and Cr <1.5, does not meet criteria for low dose and was on full dose prior). BP improved today, will restart diltiazem 60 mg Q6H 12/28: HR improved but still fast at times, cont same dilt/inderal for now as bp on low side and monitor on tele. -12/29-: rates good, BPs soft--same meds -01/04-: rvr to 120s at times, pt tolerating and bp low side so cont same rate meds for now -01/07: 3 doses of propranolol held for low BP yesterday, rate 120s, received diltiazem. d/w RN to give propranolol first, monitor BP and give diltiazem if BP stable K 2.9, replete lytes for K >4.0, Mg >2.0 -01/08: bp consistently 90s > 80s systolic, rates rapid--start digoxin (may need load if remains tachy later) -01/09: did not receive propranolol or diltiazem due to low BP yesterday, HR remains 120s on digoxin. start amiodarone gtt -01/10-: rate 90s-120s on amiodarone, propranolol and diltiazem held due to low BP. cont amiodarone -01/12: HR remains fast despite several days of iv amio, thus will dc amio. Cont bb/ccb. Will also start digoxin. - holding eliquis, on heparin gtt s/p chest tube. restart eliquis when able per IR hypotension - ? intravasc contracted (low albumin/low oncotic pressure, on lasix) - deferring pressors at present, given normal mentation Pulmonary embolism, pleural effusions, acute diast CHF, severe hypoalbuminuria: - pulm congestion on CXR after receiving IVF here, was diuresed - echo with dilated RV (normal function), no signific pulm HTN per TR gradient measurable on that study. Pt at risk for PE given: (1) AC had been held here for several days preop/postop, (2) she has new dx of colon malignancy; (3) she is postop and bedbound. - LE venous dopplers no DVT - CTA chest acute RLL PE - on eliquis - betzy pleural effusions on CTA 01/02- had been getting prn iv lasix - CT abd/pelvis 01/05 shows large R pleural effusion increased in size - now on lasix 40 mg IV BID, continue - pleural effusion mgmt per crit care, thoracic surgery, s/p chest tube with 1200 cc serosanguinous drainage sbo, colon mass: -s/p surgery, found to have colon ca, onc following
--- NOTE | 2019-01-12 11:28 | PN ---
Progress Note (short form) - Note Progress Note: Resting in NAD. CT has been clamped since yesterday. CXR: increase in right effusion. Denies shortness of breath or chest pain. No CXR Intake & Output 01/09/19 01/10/19 01/11/19 01/12/19 23:59 23:59 23:59 23:59 Intake Total 250 1655.6 175 Output Total 270 Balance -20 1655.6 175 Last Vital Signs Temp Pulse Resp BP Pulse Ox 96.7 F L 124 H 18 110/52 L 99 01/12/19 08:18 01/12/19 09:00 01/12/19 09:00 01/12/19 09:00 01/11/19 20:54 Active Medications Acetaminophen (Tylenol -) 650 mg PO Q6H PRN PRN Reason: PAIN LEVEL 1-5 Digoxin (Lanoxin -) 0.25 mg PO DAILY [facility] Diltiazem HCl (Cardizem -) 60 mg PO Q6HPO [facility] Last Admin: 01/12/19 05:58 Dose: 60 mg Diltiazem HCl (Cardizem Injection -) 10 mg IVPUSH Q4H PRN PRN Reason: TACHYCARDIA Fluticasone Propionate (Flonase -) 2 spray NS DAILY [facility] Last Admin: 01/11/19 10:33 Dose: 2 spray Furosemide (Lasix Injection -) 40 mg IVPUSH BID@0600,1400 [facility] Last Admin: 01/12/19 06:20 Dose: 40 mg Heparin Sodium (Porcine) (Heparin -) 1,000 unit IVPUSH PRN PRN PRN Reason: Heparin Heparin Sodium (Porcine) (Heparin -) 5,000 unit IVPUSH PRN PRN PRN Reason: Heparin Iron Sucrose 200 mg/ Sodium (Chloride) 100 mls @ 100 mls/hr IVPB DAILY [facility] Stop: 01/15/19 13:59 Last Admin: 01/11/19 16:26 Dose: 100 mls/hr Heparin Sodium/Dextrose (Heparin Infusion -) 25,000 units in 500 mls @ 16 mls/ hr IVPB TITR [facility]; Protocol Last Admin: 01/11/19 22:13 Dose: 950 unit/hr, 19 mls/hr Magnesium Oxide (Mag-Ox -) 400 mg PO BID [facility] Last Admin: 01/11/19 22:13 Dose: 400 mg Ondansetron HCl (Zofran Injection) 4 mg IVPUSH Q6H PRN PRN Reason: NAUSEA Pantoprazole Sodium (Protonix Iv) 40 mg IVPUSH DAILY [facility] Last Admin: 01/11/19 10:30 Dose: 40 mg Potassium Chloride (K-Dur -) 40 meq PO DAILY [facility] Potassium Phos/Sodium Phos (Phos-Nak Packet -) 1 packet PO TID [facility] Last Admin: 01/12/19 05:59 Dose: 1 packet Propranolol HCl (Inderal -) 60 mg PO Q6H [facility] Last Admin: 01/12/19 05:59 Dose: Not Given Propranolol HCl (Inderal Injection -) 1 mg IVPUSH Q1H PRN PRN Reason: TACHYCARDIA Tramadol HCl (Ultram -) 50 mg PO Q6H PRN PRN Reason: PAIN LEVEL 7 - 10 Last Admin: 01/09/19 09:47 Dose: 50 mg Gen: NAD at rest Heart: S1S2 Lung: Clamped Right pigtail catheter, decreased breath sounds at the bases Abd: soft, nontender Ext: no edema Laboratory Results - last 24 hr 01/08/19 01/12/19 01/12/19 15:30 05:30 05:30 WBC 13.0 H RBC 3.25 L Hgb 7.5 L Hct 24.0 L MCV 73.9 L MCH 23.0 L MCHC 31.2 L RDW 18.4 H Plt Count 339 MPV 7.9 Absolute Neuts (auto) 9.9 H Neutrophils % 76.4 Lymphocytes % 11.4 D Monocytes % 11.4 H Eosinophils % 0.6 D Basophils % 0.2 Nucleated RBC % 0 Sodium 131 L Potassium 3.2 L Chloride 92 L Carbon Dioxide 35 H Anion Gap 5 L BUN 9 Creatinine 0.4 L Creat Clearance w eGFR 151.70 Random Glucose 144 H Calcium 7.2 L Phosphorus 2.0 L Magnesium 1.9 POC Fluid pH 7.2 Digoxin 0.26 L A/P Large Bowel Obstruction/Ascending Colon Mass Newly Diagnosed Colon CA S/P Ex-lap/right hemicolectomy/primary ileotransverse anastamosis Atrial Fibrillation/Flutter with RVR Acute RLL Pulmonary Embolism Right Pleural effusion: Pleural studies are pending HTN GERD Dementia New small Right Apical PTX 01/09 - Place CT back on suction - CT surgery evaluation for recurrent right effusion - Follow daily CXR - Rate control per Cardiology - Incentive spirometry - IV Heparin for anticoagulation - PO as tolerated - ABX per ID Dr Monroe
[2019-01-12] MEDS: DIGOXIN 0.25 MG TABLET (FP) PO SCH (12:46)
--- NOTE | 2019-01-12 13:58 | PN ---
Progress Note, Physician History of Present Illness: stable no complaints increased pleural effusion no distress calm - Current Medication List Current Medications: Active Medications Acetaminophen (Tylenol -) 650 mg PO Q6H PRN PRN Reason: PAIN LEVEL 1-5 Digoxin (Lanoxin -) 0.25 mg PO DAILY [facility] Last Admin: 01/12/19 12:46 Dose: 0.25 mg Diltiazem HCl (Cardizem -) 60 mg PO Q6HPO [facility] Last Admin: 01/12/19 12:46 Dose: 60 mg Diltiazem HCl (Cardizem Injection -) 10 mg IVPUSH Q4H PRN PRN Reason: TACHYCARDIA Fluticasone Propionate (Flonase -) 2 spray NS DAILY [facility] Last Admin: 01/11/19 10:33 Dose: 2 spray Furosemide (Lasix Injection -) 40 mg IVPUSH BID@0600,1400 [facility] Last Admin: 01/12/19 06:20 Dose: 40 mg Heparin Sodium (Porcine) (Heparin -) 1,000 unit IVPUSH PRN PRN PRN Reason: Heparin Heparin Sodium (Porcine) (Heparin -) 5,000 unit IVPUSH PRN PRN PRN Reason: Heparin Iron Sucrose 200 mg/ Sodium (Chloride) 100 mls @ 100 mls/hr IVPB DAILY [facility] Stop: 01/15/19 13:59 Last Admin: 01/11/19 16:26 Dose: 100 mls/hr Heparin Sodium/Dextrose (Heparin Infusion -) 25,000 units in 500 mls @ 16 mls/ hr IVPB TITR [facility]; Protocol Last Admin: 01/11/19 22:13 Dose: 950 unit/hr, 19 mls/hr Magnesium Oxide (Mag-Ox -) 400 mg PO BID [facility] Last Admin: 01/12/19 10:00 Dose: 400 mg Ondansetron HCl (Zofran Injection) 4 mg IVPUSH Q6H PRN PRN Reason: NAUSEA Pantoprazole Sodium (Protonix Iv) 40 mg IVPUSH DAILY [facility] Last Admin: 01/12/19 10:00 Dose: 40 mg Potassium Chloride (K-Dur -) 40 meq PO DAILY [facility] Last Admin: 01/12/19 10:00 Dose: 40 meq Potassium Phos/Sodium Phos (Phos-Nak Packet -) 1 packet PO TID [facility] Last Admin: 01/12/19 05:59 Dose: 1 packet Propranolol HCl (Inderal -) 60 mg PO Q6H [facility] Last Admin: 01/12/19 10:00 Dose: 60 mg Propranolol HCl (Inderal Injection -) 1 mg IVPUSH Q1H PRN PRN Reason: TACHYCARDIA Tramadol HCl (Ultram -) 50 mg PO Q6H PRN PRN Reason: PAIN LEVEL 7 - 10 Last Admin: 01/09/19 09:47 Dose: 50 mg - Objective Vital Signs: Vital Signs Temperature 97.4 F L 01/12/19 13:35 Pulse Rate 112 H 01/12/19 13:35 Respiratory Rate 18 01/12/19 13:35 Blood Pressure 97/45 L 01/12/19 13:00 O2 Sat by Pulse Oximetry (%) 99 01/11/19 20:54 Constitutional: Yes: No Distress, Calm Cardiovascular: Yes: Regular Rate and Rhythm Respiratory: Yes: Regular, Other (poor air entry at the bases) Gastrointestinal: Yes: Normal Bowel Sounds, Soft, Tenderness Musculoskeletal: Yes: WNL Extremities: Yes: WNL Neurological: Yes: Alert, Oriented Psychiatric: Yes: Alert, Oriented Labs: CBC, BMP 01/12/19 05:30 01/12/19 05:30 INR, PTT INR 1.54 (0.83-1.09) H 01/11/19 05:30 - ....Imaging Chest X-ray: Report Reviewed, Image Reviewed Assessment/Plan - Problems (1) Colon obstruction Code(s): K56.609 - UNSP INTESTNL OBST, UNSP TO PARTIAL VERSUS COMPLETE OBST (2) Atrial fibrillation with RVR Code(s): I48.91 - UNSPECIFIED ATRIAL FIBRILLATION (3) Dementia Code(s): F03.90 - UNSPECIFIED DEMENTIA WITHOUT BEHAVIORAL DISTURBANCE (4) Esophagitis Code(s): K20.9 - ESOPHAGITIS, UNSPECIFIED (5) GERD (gastroesophageal reflux disease) Code(s): K21.9 - GASTRO-ESOPHAGEAL REFLUX DISEASE WITHOUT ESOPHAGITIS (6) Hypertension Code(s): I10 - ESSENTIAL (PRIMARY) HYPERTENSION Qualifiers: Hypertension type: essential hypertension Qualified Code(s): I10 - Essential (primary) hypertension leukocytosis pleural effusion pe pleural effusion has increased plan continue current mgmt thoracic surgery no abx at this time monitor wbc rest as per the team
[2019-01-12] MEDS: FLUTICASONE PROP 0.05% 16 GM NASAL SPRAY NS SCH (17:14)
[2019-01-12] MEDS: IRON SUCROSE INJECTION 200 MG in SODIUM CHLORIDE 90 ML IVPB SCH (17:14)
[2019-01-12 20:38] LABS: BASO % 0.5 % (0-2.0); EOS % 0.6 % (0-4.5); HEMATOCRIT 26.9 % (32.4-45.2); HEMOGLOBIN 8.4 GM/dL (10.7-15.3); LYMPH % 11.3 % (8-40); MCH 23.6 pg (25.7-33.7); MCHC 31.2 g/dl (32.0-36.0); MEAN CELL VOLUME 75.6 fl (80-96); MEAN PLT VOLUME 7.8 fl (7.5-11.1); MONO % 10.2 % (3.8-10.2); NEUT % 77.4 % (42.8-82.8); PLATELET COUNT 389 K/MM3 (134-434); RBC 3.56 M/mm3 (3.60-5.2); RDW 18.8 % (11.6-15.6); WHITE BLOOD COUNT 16.3 K/mm3 (4.0-10.0)
[2019-01-12] MEDS: HEPARIN INFUSION - 25,000 UNITS/500 ML INFUS.BAG IVPB SCH (22:49)
[2019-01-13] MEDS: dilTIAZem HCL 60 MG TABLET (FP) PO SCH ×3 (06:36→17:26)
[2019-01-13] MEDS: FUROSEMIDE 40 MG/4 ML INJECTABLE VIAL IVPUSH SCH ×2 (06:36→13:13)
[2019-01-13] MEDS: NAPH,MB-DB/K PH,MBDB POWDER PACKET PO SCH ×3 (06:36→21:16)
[2019-01-13 06:51] LABS: BASO % 0.3 % (0-2.0); HEMATOCRIT 24.8 % (32.4-45.2); HEMOGLOBIN 7.7 GM/dL (10.7-15.3); LYMPH % 11.1 % (8-40); MCH 23.3 pg (25.7-33.7); MCHC 31.2 g/dl (32.0-36.0); MEAN CELL VOLUME 74.6 fl (80-96); MONO % 10.9 % (3.8-10.2); NEUT % 76.7 % (42.8-82.8); PLATELET COUNT 355 K/MM3 (134-434); RBC 3.33 M/mm3 (3.60-5.2); RDW 18.6 % (11.6-15.6); WHITE BLOOD COUNT 15.7 K/mm3 (4.0-10.0)
[2019-01-13 07:31] LABS: ALBUMIN 1.3 g/dl (3.4-5.0); ALK PHOS 67 U/L (45-117); ANION GAP 6 MMOL/L (8-16); BILIRUBIN,TOTAL 0.3 mg/dL (0.2-1); BLOOD UREA NITROGEN 9 mg/dL (7-18); CALCIUM 7.3 mg/dL (8.5-10.1); CHLORIDE 90 mmol/L (98-107); CO2 35 mmol/L (21-32); CREATININE 0.4 mg/dL (0.55-1.3); GLUCOSE,RANDOM 95 mg/dL (74-106); POTASSIUM 3.4 mmol/L (3.5-5.1); SGOT/AST 8 U/L (15-37); SGPT/ALT 8 U/L (13-61); SODIUM 131 mmol/L (136-145); TOT PROT 4.2 g/dl (6.4-8.2)
--- NOTE | 2019-01-13 09:51 | PN ---
Progress Note (short form) - Note Progress Note: s: no cp sob palps dizzy o: Vital Signs Period Temp Pulse Resp BP Sys/Germain Pulse Ox Last 24 Hr 97.4 F-98.9 F 81-122 16-22 94-112/45-58 93-98 nad, no jvd irreg s1s2 no mrg cta bl nl eff awake, alert no jaundice diaphoresis no le e/c/c abd nt nd pos bs Current Medications Generic Name Dose Route Start Last Admin Trade Name Freq PRN Reason Stop Dose Admin Acetaminophen 650 mg 01/03/19 08:46 Tylenol - PO Q6H PRN PAIN LEVEL 1-5 Digoxin 0.25 mg 01/12/19 11:00 01/12/19 12:46 Lanoxin - PO 0.25 mg DAILY OBDULIO Administration Diltiazem HCl 60 mg 12/29/18 00:00 01/13/19 06:36 Cardizem - PO 60 mg Q6HPO OBDULIO Administration Diltiazem HCl 10 mg 12/28/18 20:38 Cardizem Injection - IVPUSH Q4H PRN TACHYCARDIA Fluticasone Propionate 2 spray 12/29/18 10:00 01/12/19 17:14 Flonase - NS 2 spray DAILY OBD[facility] Administration Furosemide 40 mg 01/06/19 06:00 01/13/19 06:36 Lasix Injection - IVPUSH 40 mg BID@0600,1400 OBDULIO Administration Heparin Sodium (Porcine) 1,000 unit 01/11/19 21:16 Heparin - IVPUSH PRN PRN Heparin Heparin Sodium (Porcine) 5,000 unit 01/11/19 21:16 Heparin - IVPUSH PRN PRN Heparin Iron Sucrose 200 mg/ Sodium 100 mls @ 100 mls/hr 01/11/19 14:00 01/12/19 17: 14 Chloride IVPB 01/15/19 13:59 100 mls/hr DAILY OBDULIO Administration Heparin Sodium/Dextrose 25,000 units in 500 mls @ 16 mls/hr 01/11/19 21:30 22:49 Heparin Infusion - IVPB 750 unit/hr TITR OBDULIO 15 mls/hr Administration Protocol 800 UNIT/HR Magnesium Oxide 400 mg 01/03/19 22:00 01/12/19 21:01 Mag-Ox - PO 400 mg BID OBDULIO Administration Ondansetron HCl 4 mg 12/28/18 20:38 Zofran Injection IVPUSH Q6H PRN NAUSEA Pantoprazole Sodium 40 mg 12/29/18 10:00 01/12/19 10:00 Protonix Iv IVPUSH 40 mg DAILY OBDUL[facility] Administration Potassium Chloride 40 meq 01/12/19 10:00 01/12/19 10:00 K-Dur - PO 40 meq DAILY [facility]BD[facility] Administration Potassium Phos/Sodium Phos 1 packet 12/28/18 14:00 01/13/19 06:36 Phos-Nak Packet - PO 1 packet TID OBDULIO Administration Propranolol HCl 60 mg 12/28/18 22:00 01/13/19 04:04 Inderal - PO Not Given Q6H OBDULIO Propranolol HCl 1 mg 12/28/18 20:38 Inderal Injection - IVPUSH Q1H PRN TACHYCARDIA Tramadol HCl 50 mg 01/08/19 17:44 01/09/19 09:47 Ultram - PO 50 mg Q6H PRN Administration PAIN LEVEL 7 - 10 CBC, BMP 01/13/19 05:30 01/13/19 05:30 ecg: aflutter with 2:1 avb, vr 127, no ischemic changes CXR 12/28: slight incr bilat pulm/pleural changes Echo 12/2018: small LV cavity, hyperdynamic. mild-mod dilated RV, hyperdynamic RVSF. mild ERIK. mild-mod MR (eccentric). RVSP 30-35 CTA chest acute RLL PE, mod R and small left pleural effusions tele: AF/flutter, 90s -120s a/p: 83 f hx dementia, afib/flutter, gerd, htn, tia, sent from me for coffee ground emesis. aflutter: - was on diltiazem 60 mg QID and propranolol 120 mg BID at home-->npo postop bowel surgery with tachycardia and hypotensive on levophed-->amio gtt started with persistent tachycardia. hemodynamics improved-->amio d/c'd, prn iv diltiazem ordered - 12/25: H?R 140s, no response to IV diltiazem pushes, SBP dropped to 80s. d/w'd icu team: will start non-chronotropic vasoconstrictor pressor, then initiate low dose PO and IV propranolol trial for HR control. - eddiequis held briefly during 12/05 admit with GIB, resumed on discharge with plan for outpt GI scopes. H/H were stable when arrived this time with SBO, eliquis now on hold for surgery - 12/26: HR remains 130s, will increase propranolol to 60 mg QID (home dose is propranolol long acting 120 mg BID). If BP tolerates would restart PO diltiazem as well, at home was on 60 mg QID - 12/27: eliquis resumed, HR 130s. change eliquis to 5 mg BID dosing (age >80 however she is >60 kg and Cr <1.5, does not meet criteria for low dose and was on full dose prior). BP improved today, will restart diltiazem 60 mg Q6H 12/28: HR improved but still fast at times, cont same dilt/inderal for now as bp on low side and monitor on tele. -12/29-: rates good, BPs soft--same meds -01/04-: rvr to 120s at times, pt tolerating and bp low side so cont same rate meds for now -01/07: 3 doses of propranolol held for low BP yesterday, rate 120s, received diltiazem. d/w RN to give propranolol first, monitor BP and give diltiazem if BP stable K 2.9, replete lytes for K >4.0, Mg >2.0 -01/08: bp consistently 90s > 80s systolic, rates rapid--start digoxin (may need load if remains tachy later) -01/09: did not receive propranolol or diltiazem due to low BP yesterday, HR remains 120s on digoxin. start amiodarone gtt -01/10-: rate 90s-120s on amiodarone, propranolol and diltiazem held due to low BP. cont amiodarone -01/12: HR remains fast despite several days of iv amio, thus will dc amio. Cont bb/ccb. Will also start digoxin. -01/13: cont bb/ccb, dig, monitor dig levels - holding eliquis, on heparin gtt s/p chest tube. restart eliquis when able per IR hypotension - ? intravasc contracted (low albumin/low oncotic pressure, on lasix) - deferring pressors at present, given normal mentation Pulmonary embolism, pleural effusions, acute diast CHF, severe hypoalbuminuria: - pulm congestion on CXR after receiving IVF here, was diuresed - echo with dilated RV (normal function), no signific pulm HTN per TR gradient measurable on that study. Pt at risk for PE given: (1) AC had been held here for several days preop/postop, (2) she has new dx of colon malignancy; (3) she is postop and bedbound. - LE venous dopplers no DVT - CTA chest acute RLL PE - on eliquis - betzy pleural effusions on CTA 01/02- had been getting prn iv lasix - CT abd/pelvis 01/05 shows large R pleural effusion increased in size - now on lasix 40 mg IV BID, continue - pleural effusion mgmt per crit care, thoracic surgery, s/p chest tube with continued serosanguinous drainage sbo, colon mass: -s/p surgery, found to have colon ca, onc following
[2019-01-13] MEDS: POTASSIUM CHLORIDE TABS 20 MEQ TABLET.ER (FP) PO SCH (10:12)
[2019-01-13] MEDS: DIGOXIN 0.25 MG TABLET (FP) PO SCH (10:12)
[2019-01-13] MEDS: MAGNESIUM OXIDE 400 MG TABLET (FP) PO SCH ×2 (10:13→21:16)
[2019-01-13] MEDS: PANTOPRAZOLE SODIUM 40 MG VIAL IVPUSH SCH (10:13)
[2019-01-13] MEDS: FLUTICASONE PROP 0.05% 16 GM NASAL SPRAY NS SCH (10:19)
[2019-01-13] MEDS: IRON SUCROSE INJECTION 200 MG in SODIUM CHLORIDE 90 ML IVPB SCH (11:00)
--- NOTE | 2019-01-13 11:31 | PN ---
Progress Note (short form) - Note Progress Note: Resting in NAD. No significant drainage from pigtail. It was flushed easily with a small amount of return. Denies shortness of breath or chest pain. CXR: No gross change Intake & Output 01/10/19 01/11/19 01/12/19 01/13/19 23:59 23:59 23:59 23:59 Intake Total 1655.6 175 482 105 Output Total 0 Balance 1655.6 175 482 105 Last Vital Signs Temp Pulse Resp BP Pulse Ox 97.8 F 124 H 22 H 104/53 L 98 01/13/19 07:29 01/13/19 10:12 01/13/19 07:29 01/13/19 06:35 01/13/19 07:29 Active Medications Acetaminophen (Tylenol -) 650 mg PO Q6H PRN PRN Reason: PAIN LEVEL 1-5 Digoxin (Lanoxin -) 0.25 mg PO DAILY [facility] Last Admin: 01/13/19 10:12 Dose: 0.25 mg Diltiazem HCl (Cardizem -) 60 mg PO Q6HPO [facility] Last Admin: 01/13/19 11:28 Dose: 60 mg Diltiazem HCl (Cardizem Injection -) 10 mg IVPUSH Q4H PRN PRN Reason: TACHYCARDIA Fluticasone Propionate (Flonase -) 2 spray NS DAILY [facility] Last Admin: 01/13/19 10:19 Dose: 2 spray Furosemide (Lasix Injection -) 40 mg IVPUSH BID@0600,1400 [facility] Last Admin: 01/13/19 06:36 Dose: 40 mg Heparin Sodium (Porcine) (Heparin -) 1,000 unit IVPUSH PRN PRN PRN Reason: Heparin Heparin Sodium (Porcine) (Heparin -) 5,000 unit IVPUSH PRN PRN PRN Reason: Heparin Iron Sucrose 200 mg/ Sodium (Chloride) 100 mls @ 100 mls/hr IVPB DAILY [facility] Stop: 01/15/19 13:59 Last Admin: 01/13/19 11:00 Dose: 100 mls/hr Heparin Sodium/Dextrose (Heparin Infusion -) 25,000 units in 500 mls @ 16 mls/ hr IVPB TITR [facility]; Protocol Last Admin: 01/12/19 22:49 Dose: 750 unit/hr, 15 mls/hr Magnesium Oxide (Mag-Ox -) 400 mg PO BID [facility] Last Admin: 01/13/19 10:13 Dose: 400 mg Ondansetron HCl (Zofran Injection) 4 mg IVPUSH Q6H PRN PRN Reason: NAUSEA Pantoprazole Sodium (Protonix Iv) 40 mg IVPUSH DAILY [facility] Last Admin: 01/13/19 10:13 Dose: 40 mg Potassium Chloride (K-Dur -) 40 meq PO DAILY [facility] Last Admin: 01/13/19 10:12 Dose: 40 meq Potassium Phos/Sodium Phos (Phos-Nak Packet -) 1 packet PO TID [facility] Last Admin: 01/13/19 06:36 Dose: 1 packet Propranolol HCl (Inderal -) 60 mg PO Q6H [facility] Last Admin: 01/13/19 10:08 Dose: Not Given Propranolol HCl (Inderal Injection -) 1 mg IVPUSH Q1H PRN PRN Reason: TACHYCARDIA Tramadol HCl (Ultram -) 50 mg PO Q6H PRN PRN Reason: PAIN LEVEL 7 - 10 Last Admin: 01/09/19 09:47 Dose: 50 mg Gen: NAD at rest Heart: S1S2 Lung: Right pigtail catheter, decreased breath sounds at the bases Abd: soft, nontender Ext: no edema Laboratory Results - last 24 hr 01/12/19 01/12/19 01/12/19 12:48 20:20 20:20 WBC 16.3 H RBC 3.56 L Hgb 8.4 L Hct 26.9 L MCV 75.6 L MCH 23.6 L MCHC 31.2 L RDW 18.8 H Plt Count 389 MPV 7.8 Absolute Neuts (auto) 12.6 H Neutrophils % 77.4 Lymphocytes % 11.3 Monocytes % 10.2 Eosinophils % 0.6 Basophils % 0.5 Nucleated RBC % 0 PTT (Actin FS) 100.9 H 90.6 H Sodium Potassium Chloride Carbon Dioxide Anion Gap BUN Creatinine Creat Clearance w eGFR Random Glucose Calcium Total Bilirubin AST ALT Alkaline Phosphatase Total Protein Albumin Stool Occult Blood Digoxin 01/12/19 01/13/19 01/13/19 22:45 04:30 05:30 WBC RBC Hgb Hct MCV MCH MCHC RDW Plt Count MPV Absolute Neuts (auto) Neutrophils % Lymphocytes % Monocytes % Eosinophils % Basophils % Nucleated RBC % PTT (Actin FS) 53.5 H Sodium 131 L Potassium 3.4 L Chloride 90 L Carbon Dioxide 35 H Anion Gap 6 L BUN 9 Creatinine 0.4 L Creat Clearance w eGFR 151.70 Random Glucose 95 Calcium 7.3 L Total Bilirubin 0.3 AST 8 L ALT 8 L Alkaline Phosphatase 67 Total Protein 4.2 L Albumin 1.3 L Stool Occult Blood Negative Digoxin 0.51 L 01/13/19 01/13/19 05:30 05:30 WBC 15.7 H RBC 3.33 L Hgb 7.7 L Hct 24.8 L MCV 74.6 L MCH 23.3 L MCHC 31.2 L RDW 18.6 H Plt Count 355 MPV 8.0 Absolute Neuts (auto) 12.0 H Neutrophils % 76.7 Lymphocytes % 11.1 Monocytes % 10.9 H Eosinophils % 1.0 Basophils % 0.3 Nucleated RBC % 0 PTT (Actin FS) 56.6 H Sodium Potassium Chloride Carbon Dioxide Anion Gap BUN Creatinine Creat Clearance w eGFR Random Glucose Calcium Total Bilirubin AST ALT Alkaline Phosphatase Total Protein Albumin Stool Occult Blood Digoxin A/P Large Bowel Obstruction/Ascending Colon Mass Newly Diagnosed Colon CA S/P Ex-lap/right hemicolectomy/primary ileotransverse anastamosis Atrial Fibrillation/Flutter with RVR Acute RLL Pulmonary Embolism Right Pleural effusion: Pleural studies are pending HTN GERD Dementia New small Right Apical PTX 01/09 - Pigtail flushed and remains on suction - Will D/W IR for possible PleureX on Tuesday - Follow daily CXR - Rate control per Cardiology - Incentive spirometry - IV Heparin for anticoagulation - PO as tolerated - ABX per ID Dr Monroe
--- NOTE | 2019-01-13 15:10 | PN ---
Progress Note, Physician - Current Medication List Current Medications: Active Medications Acetaminophen (Tylenol -) 650 mg PO Q6H PRN PRN Reason: PAIN LEVEL 1-5 Digoxin (Lanoxin -) 0.25 mg PO DAILY [facility] Last Admin: 01/13/19 10:12 Dose: 0.25 mg Diltiazem HCl (Cardizem -) 60 mg PO Q6HPO [facility] Last Admin: 01/13/19 11:28 Dose: 60 mg Diltiazem HCl (Cardizem Injection -) 10 mg IVPUSH Q4H PRN PRN Reason: TACHYCARDIA Fluticasone Propionate (Flonase -) 2 spray NS DAILY [facility] Last Admin: 01/13/19 10:19 Dose: 2 spray Furosemide (Lasix Injection -) 40 mg IVPUSH BID@0600,1400 [facility] Last Admin: 01/13/19 13:13 Dose: 40 mg Heparin Sodium (Porcine) (Heparin -) 1,000 unit IVPUSH PRN PRN PRN Reason: Heparin Heparin Sodium (Porcine) (Heparin -) 5,000 unit IVPUSH PRN PRN PRN Reason: Heparin Iron Sucrose 200 mg/ Sodium (Chloride) 100 mls @ 100 mls/hr IVPB DAILY [facility] Stop: 01/15/19 13:59 Last Admin: 01/13/19 11:00 Dose: 100 mls/hr Heparin Sodium/Dextrose (Heparin Infusion -) 25,000 units in 500 mls @ 16 mls/ hr IVPB TITR [facility]; Protocol Last Admin: 01/12/19 22:49 Dose: 750 unit/hr, 15 mls/hr Magnesium Oxide (Mag-Ox -) 400 mg PO BID [facility] Last Admin: 01/13/19 10:13 Dose: 400 mg Ondansetron HCl (Zofran Injection) 4 mg IVPUSH Q6H PRN PRN Reason: NAUSEA Pantoprazole Sodium (Protonix Iv) 40 mg IVPUSH DAILY [facility] Last Admin: 01/13/19 10:13 Dose: 40 mg Potassium Chloride (K-Dur -) 40 meq PO DAILY [facility] Last Admin: 01/13/19 10:12 Dose: 40 meq Potassium Phos/Sodium Phos (Phos-Nak Packet -) 1 packet PO TID [facility] Last Admin: 01/13/19 13:13 Dose: 1 packet Propranolol HCl (Inderal -) 60 mg PO Q6H [facility] Last Admin: 01/13/19 10:08 Dose: Not Given Propranolol HCl (Inderal Injection -) 1 mg IVPUSH Q1H PRN PRN Reason: TACHYCARDIA Tramadol HCl (Ultram -) 50 mg PO Q6H PRN PRN Reason: PAIN LEVEL 7 - 10 Last Admin: 01/09/19 09:47 Dose: 50 mg - Objective Vital Signs: Vital Signs Temperature 97.8 F 01/13/19 08:00 Pulse Rate 128 H 01/13/19 12:00 Respiratory Rate 18 01/13/19 12:00 Blood Pressure 96/52 L 01/13/19 12:00 O2 Sat by Pulse Oximetry (%) 98 01/13/19 07:29 Constitutional: Yes: Well Nourished, No Distress, Calm Eyes: Yes: WNL, Conjunctiva Clear, EOM Intact HENT: Yes: WNL, Atraumatic, Normocephalic Neck: Yes: WNL, Supple, Trachea Midline Cardiovascular: Yes: WNL, Regular Rate and Rhythm Respiratory: Yes: WNL, Regular, CTA Bilaterally Gastrointestinal: Yes: WNL, Normal Bowel Sounds, Soft Musculoskeletal: Yes: WNL Extremities: Yes: WNL Integumentary: Yes: WNL Neurological: Yes: WNL, Alert, Oriented ...Motor Strength: WNL Psychiatric: Yes: WNL, Alert, Oriented Labs: CBC, BMP 01/13/19 05:30 01/13/19 05:30 INR, PTT INR 1.54 (0.83-1.09) H 01/11/19 05:30 Assessment/Plan Colon obstruction - Large bowel obstruction secondary to right colon mass- s/p exploratory laparotomy, right hemicolectomy, primary ileotransverse anastamosis on 12/22. -will advance diet. brook have been removed. surgery om board. - Moderately differentiated adenocarcinoma of the colon- [id number]. oncology has been consulted, however likely not a candidate for treatment due to hypoalbuminemia and poor functional status. outpatient follow up. Atrial fibrillation with RVR responded to amiodarone drip BP too long for most other medications. f/u with cardiology Hypertension - Off BP mreds due to Hypotention Pulmonary embolism RLL PE- on hep ggt. - c/w heparin drip due to the chest tube placement Hypokalemia K 3.2 will replete and F/U BMP and Magnesium level. Hypomagnesemia Repleted today mag is 1.9. pleural effusion s/p chest tube: - will monitor Hypoalbuminemia Nutritional evaluation Dementia Chronic no active issue Anemia Iron def anemia-will give venofer . Hb 7.5 almost at base line will f/u PM CBC , had serosangenous output into chest tube on placement, has now resolved. monitor Hgb Hyponatremia Hypervolumic will add Salt liberal Diet.
--- NOTE | 2019-01-13 20:34 | PN ---
Progress Note, Physician History of Present Illness: Pt seen and examined. Events noted. She is alert, fully responsive, without specific complaints. Remains afebrile, wbc elevated but stable. - Current Medication List Current Medications: Active Medications Acetaminophen (Tylenol -) 650 mg PO Q6H PRN PRN Reason: PAIN LEVEL 1-5 Digoxin (Lanoxin -) 0.25 mg PO DAILY [facility] Last Admin: 01/13/19 10:12 Dose: 0.25 mg Diltiazem HCl (Cardizem -) 60 mg PO Q6HPO [facility] Last Admin: 01/13/19 17:26 Dose: 60 mg Diltiazem HCl (Cardizem Injection -) 10 mg IVPUSH Q4H PRN PRN Reason: TACHYCARDIA Fluticasone Propionate (Flonase -) 2 spray NS DAILY [facility] Last Admin: 01/13/19 10:19 Dose: 2 spray Furosemide (Lasix Injection -) 40 mg IVPUSH BID@0600,1400 [facility] Last Admin: 01/13/19 13:13 Dose: 40 mg Heparin Sodium (Porcine) (Heparin -) 1,000 unit IVPUSH PRN PRN PRN Reason: Heparin Heparin Sodium (Porcine) (Heparin -) 5,000 unit IVPUSH PRN PRN PRN Reason: Heparin Iron Sucrose 200 mg/ Sodium (Chloride) 100 mls @ 100 mls/hr IVPB DAILY [facility] Stop: 01/15/19 13:59 Last Admin: 01/13/19 11:00 Dose: 100 mls/hr Heparin Sodium/Dextrose (Heparin Infusion -) 25,000 units in 500 mls @ 16 mls/ hr IVPB TITR [facility]; Protocol Last Admin: 01/12/19 22:49 Dose: 750 unit/hr, 15 mls/hr Magnesium Oxide (Mag-Ox -) 400 mg PO BID [facility] Last Admin: 01/13/19 10:13 Dose: 400 mg Ondansetron HCl (Zofran Injection) 4 mg IVPUSH Q6H PRN PRN Reason: NAUSEA Pantoprazole Sodium (Protonix Iv) 40 mg IVPUSH DAILY [facility] Last Admin: 01/13/19 10:13 Dose: 40 mg Potassium Chloride (K-Dur -) 40 meq PO DAILY [facility] Last Admin: 01/13/19 10:12 Dose: 40 meq Potassium Phos/Sodium Phos (Phos-Nak Packet -) 1 packet PO TID [facility] Last Admin: 01/13/19 13:13 Dose: 1 packet Propranolol HCl (Inderal -) 60 mg PO Q6H [facility] Last Admin: 01/13/19 17:00 Dose: 60 mg Propranolol HCl (Inderal Injection -) 1 mg IVPUSH Q1H PRN PRN Reason: TACHYCARDIA Tramadol HCl (Ultram -) 50 mg PO Q6H PRN PRN Reason: PAIN LEVEL 7 - 10 Last Admin: 01/09/19 09:47 Dose: 50 mg - Objective Vital Signs: Vital Signs Temperature 98.0 F 01/13/19 16:00 Pulse Rate 119 H 01/13/19 16:00 Respiratory Rate 22 H 01/13/19 16:00 Blood Pressure 105/49 L 01/13/19 16:00 O2 Sat by Pulse Oximetry (%) 98 01/13/19 07:29 Constitutional: Yes: No Distress Cardiovascular: Yes: Regular Rate and Rhythm Respiratory: Yes: Regular, Other (Rt Chest tube draining) Gastrointestinal: Yes: Normal Bowel Sounds, Soft Musculoskeletal: Yes: WNL Extremities: Yes: WNL Integumentary: Yes: WNL Neurological: Yes: Alert Labs: CBC, BMP 01/13/19 05:30 01/13/19 05:30 INR, PTT INR 1.54 (0.83-1.09) H 01/11/19 05:30 Microbiology 01/08/19 15:30 Pleural Fluid Gram Stain - Final 01/08/19 15:30 Pleural Fluid Body Fluid Culture - Final NO GROWTH OF AEROBIC ORGANISMS AFTER 48 HOURS INCUBATION 01/08/19 15:30 Pleural Fluid Anaerobic Culture - Final NO ANAEROBES WERE ISOLATED 01/08/19 15:30 Pleural Fluid AFB Smear Concentration - Final 01/08/19 15:30 Pleural Fluid Mycobacterial Culture - Preliminary 01/08/19 15:30 Pleural Fluid ESTER Preparation - Preliminary 01/08/19 15:30 Pleural Fluid Fungal Culture - Preliminary 01/05/19 18:30 Stool Clostridioides difficile Antigen - Final 01/05/19 18:30 Stool Clostridioides difficile Toxin Assay - Final 12/30/18 13:30 Urine - Urine Andre Urine Culture - Final NO GROWTH OBTAINED 12/22/18 22:00 Peritoneal Fluid Gram Stain - Final 12/22/18 22:00 Peritoneal Fluid Body Fluid Culture - Final NO GROWTH OF AEROBIC ORGANISMS AFTER 48 HOURS INCUBATION 12/22/18 22:00 Peritoneal Fluid Anaerobic Culture - Final NO ANAEROBES WERE ISOLATED 12/23/18 11:51 Urine - Urine Andre Urine Culture - Final NO GROWTH OBTAINED 12/22/18 01:25 Urine - Urine Clean Catch Urine Culture - Final Contaminated: Please Repeat Problem List - Problems (1) Anemia Code(s): D64.9 - ANEMIA, UNSPECIFIED (2) Atrial fibrillation with RVR Code(s): I48.91 - UNSPECIFIED ATRIAL FIBRILLATION (3) Colon obstruction Code(s): K56.609 - UNSP INTESTNL OBST, UNSP TO PARTIAL VERSUS COMPLETE OBST (4) Leukocytosis (leucocytosis) Code(s): D72.829 - ELEVATED WHITE BLOOD CELL COUNT, UNSPECIFIED (5) Pleural effusion Code(s): J90 - PLEURAL EFFUSION, NOT ELSEWHERE CLASSIFIED (6) Pulmonary embolism Code(s): I26.99 - OTHER PULMONARY EMBOLISM WITHOUT ACUTE COR PULMONALE (7) Dementia Code(s): F03.90 - UNSPECIFIED DEMENTIA WITHOUT BEHAVIORAL DISTURBANCE (8) GERD (gastroesophageal reflux disease) Code(s): K21.9 - GASTRO-ESOPHAGEAL REFLUX DISEASE WITHOUT ESOPHAGITIS (9) Hypertension Code(s): I10 - ESSENTIAL (PRIMARY) HYPERTENSION Qualifiers: Hypertension type: essential hypertension Qualified Code(s): I10 - Essential (primary) hypertension Assessment/Plan Bowel obstruction/Colon CA s/p Ex-lap, hemicolectomy AFIB Pleural effusion s/p drainage PE Dementia HTN Leukocytosis -- Pt remains alert, without distress, afebrile -- s/p course of antibiotics -- latest cultures reviewed -- wbc elevated, continue monitor off antibiotics for now
[2019-01-13] MEDS ORDERED: PT OWN MED DRAWER 7, Y5N ONE ×2 (21:03→21:28)
[2019-01-13] MEDS: HEPARIN INFUSION - 25,000 UNITS/500 ML INFUS.BAG IVPB SCH (21:16)
[2019-01-14] MEDS ORDERED: PT OWN MED DRAWER 7, Y5N ONE ×5 (00:42→21:15)
[2019-01-14] MEDS: dilTIAZem HCL 60 MG TABLET (FP) PO SCH ×4 (00:46→18:43)
[2019-01-14] MEDS: NAPH,MB-DB/K PH,MBDB POWDER PACKET PO SCH ×3 (06:35→21:53)
[2019-01-14] MEDS: FUROSEMIDE 40 MG/4 ML INJECTABLE VIAL IVPUSH SCH ×2 (06:35→14:12)
[2019-01-14 06:57] LABS: BASO % 0.3 % (0-2.0); EOS % 0.8 % (0-4.5); HEMATOCRIT 25.2 % (32.4-45.2); HEMOGLOBIN 7.8 GM/dL (10.7-15.3); MCH 23.4 pg (25.7-33.7); MCHC 30.9 g/dl (32.0-36.0); MEAN CELL VOLUME 75.7 fl (80-96); MEAN PLT VOLUME 7.7 fl (7.5-11.1); MONO % 10.4 % (3.8-10.2); NEUT % 75.5 % (42.8-82.8); PLATELET COUNT 354 K/MM3 (134-434); RBC 3.32 M/mm3 (3.60-5.2); RDW 18.6 % (11.6-15.6); WHITE BLOOD COUNT 15.3 K/mm3 (4.0-10.0)
[2019-01-14 07:32] LABS: ALBUMIN 1.4 g/dl (3.4-5.0); ALK PHOS 55 U/L (45-117); ANION GAP 4 MMOL/L (8-16); BILIRUBIN,TOTAL 0.3 mg/dL (0.2-1); BLOOD UREA NITROGEN 11 mg/dL (7-18); CALCIUM 7.6 mg/dL (8.5-10.1); CHLORIDE 91 mmol/L (98-107); CO2 36 mmol/L (21-32); CREATININE 0.4 mg/dL (0.55-1.3); GLUCOSE,RANDOM 99 mg/dL (74-106); POTASSIUM 3.9 mmol/L (3.5-5.1); SGOT/AST 10 U/L (15-37); SGPT/ALT 9 U/L (13-61); SODIUM 132 mmol/L (136-145); TOT PROT 4.2 g/dl (6.4-8.2)
--- NOTE | 2019-01-14 07:37 | PN ---
Progress Note, Physician - Current Medication List Current Medications: Active Medications Acetaminophen (Tylenol -) 650 mg PO Q6H PRN PRN Reason: PAIN LEVEL 1-5 Digoxin (Lanoxin -) 0.25 mg PO DAILY [facility] Last Admin: 01/13/19 10:12 Dose: 0.25 mg Diltiazem HCl (Cardizem -) 60 mg PO Q6HPO [facility] Last Admin: 01/14/19 06:35 Dose: 60 mg Diltiazem HCl (Cardizem Injection -) 10 mg IVPUSH Q4H PRN PRN Reason: TACHYCARDIA Fluticasone Propionate (Flonase -) 2 spray NS DAILY [facility] Last Admin: 01/13/19 10:19 Dose: 2 spray Furosemide (Lasix Injection -) 40 mg IVPUSH BID@0600,1400 [facility] Last Admin: 01/14/19 06:35 Dose: 40 mg Heparin Sodium (Porcine) (Heparin -) 1,000 unit IVPUSH PRN PRN PRN Reason: Heparin Heparin Sodium (Porcine) (Heparin -) 5,000 unit IVPUSH PRN PRN PRN Reason: Heparin Iron Sucrose 200 mg/ Sodium (Chloride) 100 mls @ 100 mls/hr IVPB DAILY [facility] Stop: 01/15/19 13:59 Last Admin: 01/13/19 11:00 Dose: 100 mls/hr Heparin Sodium/Dextrose (Heparin Infusion -) 25,000 units in 500 mls @ 16 mls/ hr IVPB TITR [facility]; Protocol Last Admin: 01/13/19 21:16 Dose: 750 unit/hr, 15 mls/hr Magnesium Oxide (Mag-Ox -) 400 mg PO BID [facility] Last Admin: 01/13/19 21:16 Dose: 400 mg Ondansetron HCl (Zofran Injection) 4 mg IVPUSH Q6H PRN PRN Reason: NAUSEA Pantoprazole Sodium (Protonix Iv) 40 mg IVPUSH DAILY [facility] Last Admin: 01/13/19 10:13 Dose: 40 mg Potassium Chloride (K-Dur -) 40 meq PO DAILY [facility] Last Admin: 01/13/19 10:12 Dose: 40 meq Potassium Phos/Sodium Phos (Phos-Nak Packet -) 1 packet PO TID [facility] Last Admin: 01/14/19 06:35 Dose: 1 packet Propranolol HCl (Inderal -) 60 mg PO Q6H [facility] Last Admin: 01/14/19 04:52 Dose: Not Given Propranolol HCl (Inderal Injection -) 1 mg IVPUSH Q1H PRN PRN Reason: TACHYCARDIA Tramadol HCl (Ultram -) 50 mg PO Q6H PRN PRN Reason: PAIN LEVEL 7 - 10 Last Admin: 01/09/19 09:47 Dose: 50 mg - Objective Vital Signs: Vital Signs Temperature 98.4 F 01/14/19 02:00 Pulse Rate 104 H 01/14/19 04:00 Respiratory Rate 18 01/14/19 04:00 Blood Pressure 95/36 L 01/14/19 04:00 O2 Sat by Pulse Oximetry (%) 95 01/13/19 22:00 Constitutional: Yes: Well Nourished, No Distress, Calm Eyes: Yes: WNL, Conjunctiva Clear, EOM Intact HENT: Yes: WNL, Atraumatic, Normocephalic Neck: Yes: WNL, Supple, Trachea Midline Cardiovascular: Yes: WNL, Regular Rate and Rhythm, S1, S2 Respiratory: Yes: WNL, Regular, CTA Bilaterally Gastrointestinal: Yes: WNL, Normal Bowel Sounds, Soft Musculoskeletal: Yes: WNL Extremities: Yes: WNL Edema: No Peripheral Pulses WNL: Yes Labs: CBC, BMP 01/14/19 05:30 01/14/19 05:30 INR, PTT INR 1.54 (0.83-1.09) H 01/11/19 05:30 Assessment/Plan Colon obstruction - Large bowel obstruction secondary to right colon mass- s/p exploratory laparotomy, right hemicolectomy, primary ileotransverse anastamosis on 12/22. -will advance diet. brook have been removed. surgery om board. - Moderately differentiated adenocarcinoma of the colon- [id number]. oncology has been consulted, however likely not a candidate for treatment due to hypoalbuminemia and poor functional status. outpatient follow up. Atrial fibrillation with RVR responded to amiodarone drip BP too long for most other medications. f/u with cardiology Hypertension - Off BP mreds due to Hypotention Pulmonary embolism RLL PE- on hep ggt. - c/w heparin drip due to the chest tube placement Hypokalemia - resolved Hypomagnesemia - resolved pleural effusion s/p chest tube: - will monitor Hypoalbuminemia 2/2 to poor intake Nutritional evaluation Dementia - stable Anemia Iron def anemia-will give venofer . Hb 7.5 almost at base line will f/u PM CBC , had serosangenous output into chest tube on placement, has now resolved. monitor Hgb Hyponatremia Hypervolumic will add Salt liberal Diet. patient is eating well without any issues her diet was advanced to solid food
[2019-01-14] MEDS: IRON SUCROSE INJECTION 200 MG in SODIUM CHLORIDE 90 ML IVPB SCH (10:08)
[2019-01-14] MEDS: DIGOXIN 0.25 MG TABLET (FP) PO SCH (10:08)
[2019-01-14] MEDS: POTASSIUM CHLORIDE TABS 20 MEQ TABLET.ER (FP) PO SCH (10:08)
[2019-01-14] MEDS: MAGNESIUM OXIDE 400 MG TABLET (FP) PO SCH ×2 (10:08→21:53)
[2019-01-14] MEDS: FLUTICASONE PROP 0.05% 16 GM NASAL SPRAY NS SCH (10:09)
[2019-01-14] MEDS: PANTOPRAZOLE SODIUM 40 MG VIAL IVPUSH SCH (10:14)
--- NOTE | 2019-01-14 10:41 | PN ---
Progress Note (short form) - Note Progress Note: Resting in NAD. Only 5cc drainage from pigtail. Denies shortness of breath or chest pain. CXR: No gross change, small apical PTX Intake & Output 01/11/19 01/12/19 01/13/19 01/14/19 23:59 23:59 23:59 23:59 Intake Total 175 482 412 105 Output Total 5 0 Balance 175 482 407 105 Last Vital Signs Temp Pulse Resp BP Pulse Ox 98.2 F 99 H 16 110/58 L 95 01/14/19 06:00 01/14/19 10:08 01/14/19 06:00 01/14/19 06:00 01/13/19 22:00 Active Medications Acetaminophen (Tylenol -) 650 mg PO Q6H PRN PRN Reason: PAIN LEVEL 1-5 Digoxin (Lanoxin -) 0.25 mg PO DAILY [facility] Last Admin: 01/14/19 10:08 Dose: 0.25 mg Diltiazem HCl (Cardizem -) 60 mg PO Q6HPO [facility] Last Admin: 01/14/19 06:35 Dose: 60 mg Diltiazem HCl (Cardizem Injection -) 10 mg IVPUSH Q4H PRN PRN Reason: TACHYCARDIA Fluticasone Propionate (Flonase -) 2 spray NS DAILY [facility] Last Admin: 01/14/19 10:09 Dose: 2 spray Furosemide (Lasix Injection -) 40 mg IVPUSH BID@0600,1400 [facility] Last Admin: 01/14/19 06:35 Dose: 40 mg Heparin Sodium (Porcine) (Heparin -) 1,000 unit IVPUSH PRN PRN PRN Reason: Heparin Heparin Sodium (Porcine) (Heparin -) 5,000 unit IVPUSH PRN PRN PRN Reason: Heparin Iron Sucrose 200 mg/ Sodium (Chloride) 100 mls @ 100 mls/hr IVPB DAILY [facility] Stop: 01/15/19 13:59 Last Admin: 01/14/19 10:08 Dose: 100 mls/hr Heparin Sodium/Dextrose (Heparin Infusion -) 25,000 units in 500 mls @ 16 mls/ hr IVPB TITR [facility]; Protocol Last Admin: 01/13/19 21:16 Dose: 750 unit/hr, 15 mls/hr Magnesium Oxide (Mag-Ox -) 400 mg PO BID [facility] Last Admin: 01/14/19 10:08 Dose: 400 mg Ondansetron HCl (Zofran Injection) 4 mg IVPUSH Q6H PRN PRN Reason: NAUSEA Pantoprazole Sodium (Protonix Iv) 40 mg IVPUSH DAILY [facility] Last Admin: 01/14/19 10:14 Dose: 40 mg Potassium Chloride (K-Dur -) 40 meq PO DAILY [facility] Last Admin: 01/14/19 10:08 Dose: 40 meq Potassium Phos/Sodium Phos (Phos-Nak Packet -) 1 packet PO TID [facility] Last Admin: 01/14/19 06:35 Dose: 1 packet Propranolol HCl (Inderal -) 60 mg PO Q6H [facility] Last Admin: 01/14/19 10:09 Dose: 60 mg Propranolol HCl (Inderal Injection -) 1 mg IVPUSH Q1H PRN PRN Reason: TACHYCARDIA Tramadol HCl (Ultram -) 50 mg PO Q6H PRN PRN Reason: PAIN LEVEL 7 - 10 Last Admin: 01/09/19 09:47 Dose: 50 mg Gen: NAD at rest Heart: S1S2 Lung: Right pigtail catheter, decreased breath sounds at the bases Abd: soft, nontender Ext: no edema Laboratory Results - last 24 hr 01/14/19 01/14/19 01/14/19 05:30 05:30 05:30 WBC 15.3 H RBC 3.32 L Hgb 7.8 L Hct 25.2 L MCV 75.7 L MCH 23.4 L MCHC 30.9 L RDW 18.6 H Plt Count 354 MPV 7.7 Absolute Neuts (auto) 11.6 H Neutrophils % 75.5 Lymphocytes % 13.0 Monocytes % 10.4 H Eosinophils % 0.8 Basophils % 0.3 Nucleated RBC % 0 PTT (Actin FS) 58.2 H Sodium 132 L Potassium 3.9 Chloride 91 L Carbon Dioxide 36 H Anion Gap 4 L BUN 11 Creatinine 0.4 L Creat Clearance w eGFR 151.70 Random Glucose 99 Calcium 7.6 L Total Bilirubin 0.3 AST 10 L ALT 9 L Alkaline Phosphatase 55 Total Protein 4.2 L Albumin 1.4 L Digoxin 1.19 A/P Large Bowel Obstruction/Ascending Colon Mass Newly Diagnosed Colon CA S/P Ex-lap/right hemicolectomy/primary ileotransverse anastamosis Atrial Fibrillation/Flutter with RVR Acute RLL Pulmonary Embolism Right Pleural effusion: Pleural studies are pending HTN GERD Dementia Small Right Apical PTX - Pigtail again flushed and remains on suction - Will D/W IR for possible PleureX tomorrow - Follow daily CXR - Rate control per Cardiology - Incentive spirometry - IV Heparin for anticoagulation - PO as tolerated - ABX per ID Dr Monroe
[2019-01-14 11:36] LABS: ANISOCYTOSIS 1+; MACROCYTOSIS 0; PLATELET ESTIMATE NORMAL
--- NOTE | 2019-01-14 12:02 | PN ---
Progress Note (short form) - Note Progress Note: s: no cp sob palps dizzy o: Vital Signs Period Temp Pulse Resp BP Sys/Germain Pulse Ox Last 24 Hr 97.7 F-98.4 F 72-128 16-22 95-110/36-58 95-100 nad, no jvd irreg s1s2 no mrg cta bl nl eff awake, alert no jaundice diaphoresis no le e/c/c abd nt nd pos bs Current Medications Acetaminophen (Tylenol -) 650 mg PO Q6H PRN PRN Reason: PAIN LEVEL 1-5 Digoxin (Lanoxin -) 0.25 mg PO DAILY [facility] Last Admin: 01/14/19 10:08 Dose: 0.25 mg Diltiazem HCl (Cardizem -) 60 mg PO Q6HPO [facility] Last Admin: 01/14/19 06:35 Dose: 60 mg Diltiazem HCl (Cardizem Injection -) 10 mg IVPUSH Q4H PRN PRN Reason: TACHYCARDIA Fluticasone Propionate (Flonase -) 2 spray NS DAILY [facility] Last Admin: 01/14/19 10:09 Dose: 2 spray Furosemide (Lasix Injection -) 40 mg IVPUSH BID@0600,1400 [facility] Last Admin: 01/14/19 06:35 Dose: 40 mg Heparin Sodium (Porcine) (Heparin -) 1,000 unit IVPUSH PRN PRN PRN Reason: Heparin Heparin Sodium (Porcine) (Heparin -) 5,000 unit IVPUSH PRN PRN PRN Reason: Heparin Iron Sucrose 200 mg/ Sodium (Chloride) 100 mls @ 100 mls/hr IVPB DAILY [facility] Stop: 01/15/19 13:59 Last Admin: 01/14/19 10:08 Dose: 100 mls/hr Heparin Sodium/Dextrose (Heparin Infusion -) 25,000 units in 500 mls @ 16 mls/ hr IVPB TITR [facility]; Protocol Last Admin: 01/13/19 21:16 Dose: 750 unit/hr, 15 mls/hr Magnesium Oxide (Mag-Ox -) 400 mg PO BID [facility] Last Admin: 01/14/19 10:08 Dose: 400 mg Ondansetron HCl (Zofran Injection) 4 mg IVPUSH Q6H PRN PRN Reason: NAUSEA Pantoprazole Sodium (Protonix Iv) 40 mg IVPUSH DAILY [facility] Last Admin: 01/14/19 10:14 Dose: 40 mg Potassium Chloride (K-Dur -) 40 meq PO DAILY [facility] Last Admin: 01/14/19 10:08 Dose: 40 meq Potassium Phos/Sodium Phos (Phos-Nak Packet -) 1 packet PO TID [facility] Last Admin: 01/14/19 06:35 Dose: 1 packet Propranolol HCl (Inderal -) 60 mg PO Q6H [facility] Last Admin: 01/14/19 10:09 Dose: 60 mg Propranolol HCl (Inderal Injection -) 1 mg IVPUSH Q1H PRN PRN Reason: TACHYCARDIA ecg: aflutter with 2:1 avb, vr 127, no ischemic changes CXR 12/28: slight incr bilat pulm/pleural changes Echo 12/2018: small LV cavity, hyperdynamic. mild-mod dilated RV, hyperdynamic RVSF. mild ERIK. mild-mod MR (eccentric). RVSP 30-35 CTA chest acute RLL PE, mod R and small left pleural effusions tele: AF/flutter, 70s-90s, occ 110s-120s a/p: 83 f hx dementia, afib/flutter, gerd, htn, tia, sent from [place] for coffee ground emesis. aflutter: - was on diltiazem 60 mg QID and propranolol 120 mg BID at home-->npo postop bowel surgery with tachycardia and hypotensive on levophed-->amio gtt started with persistent tachycardia. hemodynamics improved-->amio d/c'd, prn iv diltiazem ordered - 12/25: H?R 140s, no response to IV diltiazem pushes, SBP dropped to 80s. d/w'd icu team: will start non-chronotropic vasoconstrictor pressor, then initiate low dose PO and IV propranolol trial for HR control. - eliquis held briefly during 12/05 admit with GIB, resumed on discharge with plan for outpt GI scopes. H/H were stable when arrived this time with SBO, eliquis now on hold for surgery - 12/26: HR remains 130s, will increase propranolol to 60 mg QID (home dose is propranolol long acting 120 mg BID). If BP tolerates would restart PO diltiazem as well, at home was on 60 mg QID - 12/27: eliquis resumed, HR 130s. change eliquis to 5 mg BID dosing (age >80 however she is >60 kg and Cr <1.5, does not meet criteria for low dose and was on full dose prior). BP improved today, will restart diltiazem 60 mg Q6H 12/28: HR improved but still fast at times, cont same dilt/inderal for now as bp on low side and monitor on tele. -12/29-: rates good, BPs soft--same meds -01/04-: rvr to 120s at times, pt tolerating and bp low side so cont same rate meds for now -01/07: 3 doses of propranolol held for low BP yesterday, rate 120s, received diltiazem. d/w RN to give propranolol first, monitor BP and give diltiazem if BP stable K 2.9, replete lytes for K >4.0, Mg >2.0 -01/08: bp consistently 90s > 80s systolic, rates rapid--start digoxin (may need load if remains tachy later) -01/09: did not receive propranolol or diltiazem due to low BP yesterday, HR remains 120s on digoxin. start amiodarone gtt -01/10-: rate 90s-120s on amiodarone, propranolol and diltiazem held due to low BP. cont amiodarone -01/12: HR remains fast despite several days of iv amio, thus will dc amio. Cont bb/ccb. Will also start digoxin. -01/13-: cont bb/ccb, dig, monitor dig levels, HR improving - holding eliquis, on heparin gtt s/p chest tube. restart eliquis when able per IR hypotension - ? intravasc contracted (low albumin/low oncotic pressure, on lasix) - deferring pressors at present, given normal mentation Pulmonary embolism, pleural effusions, acute diast CHF, severe hypoalbuminuria: - pulm congestion on CXR after receiving IVF here, was diuresed - echo with dilated RV (normal function), no signific pulm HTN per TR gradient measurable on that study. Pt at risk for PE given: (1) AC had been held here for several days preop/postop, (2) she has new dx of colon malignancy; (3) she is postop and bedbound. - LE venous dopplers no DVT - CTA chest acute RLL PE - on eliquis - betzy pleural effusions on CTA 01/02- had been getting prn iv lasix - CT abd/pelvis 01/05 shows large R pleural effusion increased in size - now on lasix 40 mg IV BID, continue - pleural effusion mgmt per crit care, thoracic surgery, s/p chest tube with continued serosanguinous drainage sbo, colon mass: -s/p surgery, found to have colon ca, onc following
--- NOTE | 2019-01-14 17:02 | PN ---
Progress Note, Physician History of Present Illness: Pt remains afebrile, alert, without distress. No new complaints. WBC remains elevated but stable. - Current Medication List Current Medications: Active Medications Acetaminophen (Tylenol -) 650 mg PO Q6H PRN PRN Reason: PAIN LEVEL 1-5 Digoxin (Lanoxin -) 0.25 mg PO DAILY [facility] Last Admin: 01/14/19 10:08 Dose: 0.25 mg Diltiazem HCl (Cardizem -) 60 mg PO Q6HPO [facility] Last Admin: 01/14/19 12:01 Dose: 60 mg Diltiazem HCl (Cardizem Injection -) 10 mg IVPUSH Q4H PRN PRN Reason: TACHYCARDIA Fluticasone Propionate (Flonase -) 2 spray NS DAILY [facility] Last Admin: 01/14/19 10:09 Dose: 2 spray Furosemide (Lasix Injection -) 40 mg IVPUSH BID@0600,1400 [facility] Last Admin: 01/14/19 14:12 Dose: 40 mg Heparin Sodium (Porcine) (Heparin -) 1,000 unit IVPUSH PRN PRN PRN Reason: Heparin Heparin Sodium (Porcine) (Heparin -) 5,000 unit IVPUSH PRN PRN PRN Reason: Heparin Iron Sucrose 200 mg/ Sodium (Chloride) 100 mls @ 100 mls/hr IVPB DAILY [facility] Stop: 01/15/19 13:59 Last Admin: 01/14/19 10:08 Dose: 100 mls/hr Heparin Sodium/Dextrose (Heparin Infusion -) 25,000 units in 500 mls @ 16 mls/ hr IVPB TITR [facility]; Protocol Last Admin: 01/13/19 21:16 Dose: 750 unit/hr, 15 mls/hr Magnesium Oxide (Mag-Ox -) 400 mg PO BID [facility] Last Admin: 01/14/19 10:08 Dose: 400 mg Ondansetron HCl (Zofran Injection) 4 mg IVPUSH Q6H PRN PRN Reason: NAUSEA Pantoprazole Sodium (Protonix Iv) 40 mg IVPUSH DAILY [facility] Last Admin: 01/14/19 10:14 Dose: 40 mg Potassium Chloride (K-Dur -) 40 meq PO DAILY [facility] Last Admin: 01/14/19 10:08 Dose: 40 meq Potassium Phos/Sodium Phos (Phos-Nak Packet -) 1 packet PO TID [facility] Last Admin: 01/14/19 14:12 Dose: 1 packet Propranolol HCl (Inderal -) 60 mg PO Q6H [facility] Last Admin: 01/14/19 16:45 Dose: 60 mg Propranolol HCl (Inderal Injection -) 1 mg IVPUSH Q1H PRN PRN Reason: TACHYCARDIA - Objective Vital Signs: Vital Signs Temperature 97.6 F 01/14/19 14:00 Pulse Rate 74 01/14/19 14:00 Respiratory Rate 16 01/14/19 14:00 Blood Pressure 105/44 L 01/14/19 14:00 O2 Sat by Pulse Oximetry (%) 100 01/14/19 09:00 Constitutional: Yes: No Distress, Calm Cardiovascular: Yes: Pulse Irregular Respiratory: Yes: Regular, Other (Rt chest tube) Gastrointestinal: Yes: Normal Bowel Sounds, Soft Genitourinary: Yes: WNL Integumentary: Yes: WNL Neurological: Yes: Alert Labs: CBC, BMP 01/14/19 05:30 01/14/19 05:30 INR, PTT INR 1.54 (0.83-1.09) H 01/11/19 05:30 Problem List - Problems (1) Anemia Code(s): D64.9 - ANEMIA, UNSPECIFIED (2) Atrial fibrillation with RVR Code(s): I48.91 - UNSPECIFIED ATRIAL FIBRILLATION (3) Colon obstruction Code(s): K56.609 - UNSP INTESTNL OBST, UNSP TO PARTIAL VERSUS COMPLETE OBST (4) Leukocytosis (leucocytosis) Code(s): D72.829 - ELEVATED WHITE BLOOD CELL COUNT, UNSPECIFIED (5) Pleural effusion Code(s): J90 - PLEURAL EFFUSION, NOT ELSEWHERE CLASSIFIED (6) Pulmonary embolism Code(s): I26.99 - OTHER PULMONARY EMBOLISM WITHOUT ACUTE COR PULMONALE (7) Dementia Code(s): F03.90 - UNSPECIFIED DEMENTIA WITHOUT BEHAVIORAL DISTURBANCE (8) GERD (gastroesophageal reflux disease) Code(s): K21.9 - GASTRO-ESOPHAGEAL REFLUX DISEASE WITHOUT ESOPHAGITIS (9) Hypertension Code(s): I10 - ESSENTIAL (PRIMARY) HYPERTENSION Qualifiers: Hypertension type: essential hypertension Qualified Code(s): I10 - Essential (primary) hypertension Assessment/Plan Bowel obstruction/Colon CA s/p Ex-lap, hemicolectomy AFIB Pleural effusion / Rt Chest tube Small PTX PE Dementia HTN Leukocytosis -- Pt remains afebrile, without distress -- wbc stable but remains elevated -- continue monitor off antibiotics for now -- repeat cbc daily
[2019-01-14] MEDS: HEPARIN INFUSION - 25,000 UNITS/500 ML INFUS.BAG IVPB SCH (21:52)
[2019-01-15] MEDS: dilTIAZem HCL 60 MG TABLET (FP) PO SCH ×4 (00:28→18:16)
[2019-01-15] MEDS: NAPH,MB-DB/K PH,MBDB POWDER PACKET PO SCH ×3 (05:43→21:53)
[2019-01-15] MEDS: FUROSEMIDE 40 MG/4 ML INJECTABLE VIAL IVPUSH SCH ×3 (05:43→15:06)
[2019-01-15 06:34] LABS: BASO % 0.2 % (0-2.0); EOS % 1.2 % (0-4.5); HEMATOCRIT 23.8 % (32.4-45.2); HEMOGLOBIN 7.5 GM/dL (10.7-15.3); MCH 24.3 pg (25.7-33.7); MCHC 31.3 g/dl (32.0-36.0); MEAN CELL VOLUME 77.6 fl (80-96); MEAN PLT VOLUME 7.7 fl (7.5-11.1); MONO % 10.9 % (3.8-10.2); NEUT % 76.7 % (42.8-82.8); PLATELET COUNT 408 K/MM3 (134-434); RBC 3.07 M/mm3 (3.60-5.2); RDW 18.2 % (11.6-15.6); WHITE BLOOD COUNT 17.6 K/mm3 (4.0-10.0)
[2019-01-15 07:06] LABS: ALBUMIN 1.4 g/dl (3.4-5.0); ALK PHOS 71 U/L (45-117); ANION GAP 3 MMOL/L (8-16); BILIRUBIN,TOTAL 0.2 mg/dL (0.2-1); BLOOD UREA NITROGEN 13 mg/dL (7-18); CALCIUM 7.2 mg/dL (8.5-10.1); CHLORIDE 93 mmol/L (98-107); CO2 37 mmol/L (21-32); CREATININE 0.4 mg/dL (0.55-1.3); GLUCOSE,RANDOM 105 mg/dL (74-106); POTASSIUM 4.4 mmol/L (3.5-5.1); SGOT/AST 13 U/L (15-37); SGPT/ALT 9 U/L (13-61); SODIUM 132 mmol/L (136-145); TOT PROT 4.3 g/dl (6.4-8.2)
--- NOTE | 2019-01-15 07:45 | PN ---
Physical Exam: SUBJECTIVE: Patient seen and examined 24HR EVENTS: -wbc increasing, now 17.6 up from 15.3 - H/H continues to downtrend, this AM 7.5/23.8 -PTT subtherapeutic on heparin infusion -Dig level now therapeutic @ 1.19 OBJECTIVE: Vital Signs Period Temp Pulse Resp BP Sys/Germain Pulse Ox Last 24 Hr 97.6 F-98.7 F 74-99 16-29 96-110/42-50 97-100 GENERAL: The patient is awake, alert in no acute distress. HEAD: Normal with no signs of trauma. EYES: PERRL, sclera anicteric, conjunctiva clear. ENT: Ears no nares patent, oropharynx clear without exudates, moist mucous membranes. NECK: Trachea midline, full range of motion, supple. LUNGS: + scattered crackles, with diminished BS at the bases, no accessory muscle use. HEART: irreg RR, no murmurs appreciated ABDOMEN: Soft, nontender, nondistended, normoactive bowel sounds, no guarding, EXTREMITIES: 2+ pulses, warm, well-perfused, no edema. NEUROLOGICAL: poor memory. Normal speech pattern, gait not observed. PSYCH: Normal mood, normal affect. SKIN: Warm, dry, normal turgor, abd incision well healed Laboratory Results - last 24 hr 01/14/19 01/15/19 01/15/19 05:30 05:30 05:30 WBC 17.6 H RBC 3.07 L Hgb 7.5 L Hct 23.8 L MCV 77.6 L MCH 24.3 L MCHC 31.3 L RDW 18.2 H Plt Count 408 MPV 7.7 Absolute Neuts (auto) 13.5 H Neutrophils % 76.7 Neutrophils % (Manual) 87.1 H Band Neutrophils % 0.0 Lymphocytes % 11.0 Lymphocytes % (Manual) 5.9 L D Monocytes % 10.9 H Monocytes % (Manual) 5 Eosinophils % 1.2 Eosinophils % (Manual) 0.0 D Basophils % 0.2 Basophils % (Manual) 0.0 Myelocytes % (Man) 1 D Promyelocytes % (Man) 0 Blast Cells % (Manual) 0 Nucleated RBC % 1 H 0 Metamyelocytes 0 Hypochromia 0 Platelet Estimate Normal Platelet Comment Present Polychromasia 1+ Poikilocytosis 1+ Anisocytosis 1+ Microcytosis 1+ Macrocytosis 0 PTT (Actin FS) 48.1 H Sodium Potassium Chloride Carbon Dioxide Anion Gap BUN Creatinine Creat Clearance w eGFR Random Glucose Calcium Total Bilirubin AST ALT Alkaline Phosphatase Total Protein Albumin 01/15/19 05:30 WBC RBC Hgb Hct MCV MCH MCHC RDW Plt Count MPV Absolute Neuts (auto) Neutrophils % Neutrophils % (Manual) Band Neutrophils % Lymphocytes % Lymphocytes % (Manual) Monocytes % Monocytes % (Manual) Eosinophils % Eosinophils % (Manual) Basophils % Basophils % (Manual) Myelocytes % (Man) Promyelocytes % (Man) Blast Cells % (Manual) Nucleated RBC % Metamyelocytes Hypochromia Platelet Estimate Platelet Comment Polychromasia Poikilocytosis Anisocytosis Microcytosis Macrocytosis PTT (Actin FS) Sodium 132 L Potassium 4.4 Chloride 93 L Carbon Dioxide 37 H Anion Gap 3 L BUN 13 Creatinine 0.4 L Creat Clearance w eGFR 151.70 Random Glucose 105 Calcium 7.2 L Total Bilirubin 0.2 AST 13 L ALT 9 L Alkaline Phosphatase 71 Total Protein 4.3 L Albumin 1.4 L Active Medications Generic Name Dose Route Start Last Admin Trade Name Freq PRN Reason Stop Dose Admin Acetaminophen 650 mg 01/03/19 08:46 Tylenol - PO Q6H PRN PAIN LEVEL 1-5 Digoxin 0.25 mg 01/12/19 11:00 01/14/19 10:08 Lanoxin - PO 0.25 mg DAILY OBDULIO Administration Diltiazem HCl 60 mg 12/29/18 00:00 01/15/19 05:43 Cardizem - PO 60 mg Q6HPO OBDULIO Administration Diltiazem HCl 10 mg 12/28/18 20:38 Cardizem Injection - IVPUSH Q4H PRN TACHYCARDIA Fluticasone Propionate 2 spray 12/29/18 10:00 01/14/19 10:09 Flonase - NS 2 spray DAILY OBDULIO Administration Furosemide 40 mg 01/06/19 06:00 01/15/19 05:43 Lasix Injection - IVPUSH 40 mg BID@0600,1400 OBDULIO Administration Heparin Sodium (Porcine) 1,000 unit 01/11/19 21:16 01/15/19 06:49 Heparin - IVPUSH 1,000 unit PRN PRN Administration Heparin Heparin Sodium (Porcine) 5,000 unit 01/11/19 21:16 Heparin - IVPUSH PRN PRN Heparin Iron Sucrose 200 mg/ Sodium 100 mls @ 100 mls/hr 01/11/19 14:00 01/14/19 10: 08 Chloride IVPB 01/15/19 13:59 100 mls/hr DAILY OBDULIO Administration Heparin Sodium/Dextrose 25,000 units in 500 mls @ 16 mls/hr 01/11/19 21:30 06:51 Heparin Infusion - IVPB 850 unit/hr TITR OBDULIO 17 mls/hr Titration Protocol 800 UNIT/HR Magnesium Oxide 400 mg 01/03/19 22:00 01/14/19 21:53 Mag-Ox - PO 400 mg BID OBDULIO Administration Ondansetron HCl 4 mg 12/28/18 20:38 Zofran Injection IVPUSH Q6H PRN NAUSEA Pantoprazole Sodium 40 mg 12/29/18 10:00 01/14/19 10:14 Protonix Iv IVPUSH 40 mg DAILY OBDULIO Administration Potassium Chloride 40 meq 01/12/19 10:00 01/14/19 10:08 K-Dur - PO 40 meq DAILY OBDULIO Administration Potassium Phos/Sodium Phos 1 packet 12/28/18 14:00 01/15/19 05:43 Phos-Nak Packet - PO 1 packet TID OBDULIO Administration Propranolol HCl 60 mg 12/28/18 22:00 01/15/19 03:42 Inderal - PO Not Given Q6H OBDULIO Propranolol HCl 1 mg 12/28/18 20:38 Inderal Injection - IVPUSH Q1H PRN TACHYCARDIA ASSESSMENT/PLAN:83 year old female with past medical history of reflux, esophagitis, dementia, hallucinations, ataxia, HTN, benign neoplasm of cerebral meninges, who presents to the emergency department via EMS from assisted due to nausea and vomiting. She was found to have Large bowel obstruction secondary to right colon mass- s/p exploratory laparotomy, right hemicolectomy, primary ileotransverse anastamosis on 12/22; brook have been removed. Pathology demonstrates Moderately differentiated adenocarcinoma of the colon- [id number]. oncology has been consulted, however likely not a candidate for treatment due to hypoalbuminemia and poor functional status. outpatient follow up. Problem List - Problems (1) Dementia Assessment/Plan: frequent reorientation and reassurance Code(s): F03.90 - UNSPECIFIED DEMENTIA WITHOUT BEHAVIORAL DISTURBANCE (2) Flutter-fibrillation Assessment/Plan: propranolol 1mg Q1h PRN sustained tachycardia Propranolol 60 mg PO QID Cardizem 60mg QID heparin drip, follow PTT as per protocol digoxin 0.25mg daily Code(s): I49.8 - OTHER SPECIFIED CARDIAC ARRHYTHMIAS (3) GERD (gastroesophageal reflux disease) Assessment/Plan: protonix daily zofran PRN nausea Code(s): K21.9 - GASTRO-ESOPHAGEAL REFLUX DISEASE WITHOUT ESOPHAGITIS (4) Anemia Assessment/Plan: trend H/H transfuse for hgb < 7.0 Code(s): D64.9 - ANEMIA, UNSPECIFIED (5) Colon cancer Assessment/Plan: Case reviewed with heme-onc, Chemotherapeutic agents are not ideal for this patient s/p resection of colonic mass. Code(s): C18.9 - MALIGNANT NEOPLASM OF COLON, UNSPECIFIED (6) Pleural effusion Assessment/Plan: s/p right chest tube Lasix BID Pulm consult for inpt regarding need for Pleurex drain CXR 01/15 demonstrates decreased atelectasis in right base Code(s): J90 - PLEURAL EFFUSION, NOT ELSEWHERE CLASSIFIED Visit type - Emergency Visit Emergency Visit: Yes ED Registration Date: 12/22/18 Care time: The patient presented to the Emergency Department on the above date and was hospitalized for further evaluation of their emergent condition. - New Patient This patient is new to me today: No - Critical Care Critical Care patient: No - Discharge Referral Referred to [facility] Med P.C.: No
[2019-01-15 10:32] LABS: ANISOCYTOSIS 1+; MACROCYTOSIS 0; OVALOCYTE 1+; PLATELET ESTIMATE NORMAL
--- NOTE | 2019-01-15 10:45 | PN ---
Progress Note, Physician Chief Complaint: bowel mass/obstruction, pleural effusion History of Present Illness: in good spirits. denies sob, cp, palpitations, leg swelling no cigs - Current Medication List Current Medications: Active Medications Acetaminophen (Tylenol -) 650 mg PO Q6H PRN PRN Reason: PAIN LEVEL 1-5 Digoxin (Lanoxin -) 0.25 mg PO DAILY [facility] Last Admin: 01/14/19 10:08 Dose: 0.25 mg Diltiazem HCl (Cardizem -) 60 mg PO Q6HPO [facility] Last Admin: 01/15/19 05:43 Dose: 60 mg Diltiazem HCl (Cardizem Injection -) 10 mg IVPUSH Q4H PRN PRN Reason: TACHYCARDIA Fluticasone Propionate (Flonase -) 2 spray NS DAILY [facility] Last Admin: 01/14/19 10:09 Dose: 2 spray Furosemide (Lasix Injection -) 40 mg IVPUSH BID@0600,1400 [facility] Last Admin: 01/15/19 05:43 Dose: 40 mg Heparin Sodium (Porcine) (Heparin -) 1,000 unit IVPUSH PRN PRN PRN Reason: Heparin Last Admin: 01/15/19 06:49 Dose: 1,000 unit Heparin Sodium (Porcine) (Heparin -) 5,000 unit IVPUSH PRN PRN PRN Reason: Heparin Iron Sucrose 200 mg/ Sodium (Chloride) 100 mls @ 100 mls/hr IVPB DAILY [facility] Stop: 01/15/19 13:59 Last Admin: 01/14/19 10:08 Dose: 100 mls/hr Heparin Sodium/Dextrose (Heparin Infusion -) 25,000 units in 500 mls @ 16 mls/ hr IVPB TITR [facility]; Protocol Last Titration: 01/15/19 06:51 Dose: 850 unit/hr, 17 mls/hr Magnesium Oxide (Mag-Ox -) 400 mg PO BID [facility] Last Admin: 01/14/19 21:53 Dose: 400 mg Ondansetron HCl (Zofran Injection) 4 mg IVPUSH Q6H PRN PRN Reason: NAUSEA Pantoprazole Sodium (Protonix Iv) 40 mg IVPUSH DAILY [facility] Last Admin: 01/14/19 10:14 Dose: 40 mg Potassium Chloride (K-Dur -) 40 meq PO DAILY [facility] Last Admin: 01/14/19 10:08 Dose: 40 meq Potassium Phos/Sodium Phos (Phos-Nak Packet -) 1 packet PO TID [facility] Last Admin: 01/15/19 05:43 Dose: 1 packet Propranolol HCl (Inderal -) 60 mg PO Q6H [facility] Last Admin: 01/15/19 03:42 Dose: Not Given Propranolol HCl (Inderal Injection -) 1 mg IVPUSH Q1H PRN PRN Reason: TACHYCARDIA - Objective Vital Signs: Vital Signs Temperature 98.0 F 01/15/19 09:14 Pulse Rate 80 01/15/19 09:14 Respiratory Rate 15 01/15/19 09:14 Blood Pressure 100/71 01/15/19 09:14 O2 Sat by Pulse Oximetry (%) 97 01/14/19 21:00 Constitutional: Yes: Well Nourished, No Distress, Calm Cardiovascular: Yes: Pulse Irregular, S1, S2. No: Gallop, Murmur Respiratory: Yes: Regular, CTA Bilaterally (anteriorly). No: Accessory Muscle Use, Wheezes Extremities: No: Cold Edema: No Neurological: Yes: Alert. No: Seizure Psychiatric: No: Agitated Labs: CBC, BMP 01/15/19 05:30 01/15/19 05:30 INR, PTT INR 1.54 (0.83-1.09) H 01/11/19 05:30 Assessment/Plan ecg: aflutter with 2:1 avb, vr 127, no ischemic changes CXR 12/28: slight incr bilat pulm/pleural changes Echo 12/2018: small LV cavity, hyperdynamic. mild-mod dilated RV, hyperdynamic RVSF. mild ERIK. mild-mod MR (eccentric). RVSP 30-35 CTA chest acute RLL PE, mod R and small left pleural effusions tele: AF mostly controlled, at times to 120s bpm a/p: 83 f hx dementia, afib/flutter, gerd, htn, tia, sent from [place] for coffee ground emesis. aflutter: - was on diltiazem 60 mg QID and propranolol 120 mg BID at home-->npo postop bowel surgery with tachycardia and hypotensive on levophed-->amio gtt started with persistent tachycardia. hemodynamics improved-->amio d/c'd, prn iv diltiazem ordered - 12/25: H?R 140s, no response to IV diltiazem pushes, SBP dropped to 80s. d/w'd icu team: will start non-chronotropic vasoconstrictor pressor, then initiate low dose PO and IV propranolol trial for HR control. - eliquis held briefly during 12/05 admit with GIB, resumed on discharge with plan for outpt GI scopes. H/H were stable when arrived this time with SBO, eliquis now on hold for surgery - 12/26: HR remains 130s, will increase propranolol to 60 mg QID (home dose is propranolol long acting 120 mg BID). If BP tolerates would restart PO diltiazem as well, at home was on 60 mg QID - 12/27: eliquis resumed, HR 130s. change eliquis to 5 mg BID dosing (age >80 however she is >60 kg and Cr <1.5, does not meet criteria for low dose and was on full dose prior). BP improved today, will restart diltiazem 60 mg Q6H 12/28: HR improved but still fast at times, cont same dilt/inderal for now as bp on low side and monitor on tele. -12/29-: rates good, BPs soft--same meds -01/04-: rvr to 120s at times, pt tolerating and bp low side so cont same rate meds for now -01/07: 3 doses of propranolol held for low BP yesterday, rate 120s, received diltiazem. d/w RN to give propranolol first, monitor BP and give diltiazem if BP stable K 2.9, replete lytes for K >4.0, Mg >2.0 -01/08: bp consistently 90s > 80s systolic, rates rapid--start digoxin (may need load if remains tachy later) -01/09: did not receive propranolol or diltiazem due to low BP yesterday, HR remains 120s on digoxin. start amiodarone gtt -01/10-: rate 90s-120s on amiodarone, propranolol and diltiazem held due to low BP. cont amiodarone -01/12: HR remains fast despite several days of iv amio, thus will dc amio. Cont bb/ccb. Will also start digoxin. -01/13-01/15: rate control acceptable. cont bb/ccb, dig, monitor dig levels-- currently ok, if trends up may need decr to 0.125 mg dose - holding eliquis, on heparin gtt s/p chest tube. restart eliquis when able per IR hypotension - ? intravasc contracted (low albumin/low oncotic pressure, on lasix) - deferring pressors at present, given normal mentation Pulmonary embolism, pleural effusions, acute diast CHF, severe hypoalbuminuria: - pulm congestion on CXR after receiving IVF here, was diuresed - echo with dilated RV (normal function), no signific pulm HTN per TR gradient measurable on that study. Pt at risk for PE given: (1) AC had been held here for several days preop/postop, (2) she has new dx of colon malignancy; (3) she is postop and bedbound. - LE venous dopplers no DVT - CTA chest acute RLL PE - on eliquis - betzy pleural effusions on CTA 01/02- had been getting prn iv lasix - CT abd/pelvis 01/05 shows large R pleural effusion increased in size - now on lasix 40 mg IV BID, continue - pleural effusion mgmt per crit care, thoracic surgery, s/p chest tube with continued serosanguinous drainage sbo, colon mass: -s/p surgery, found to have colon ca, onc following
[2019-01-15] MEDS: DIGOXIN 0.25 MG TABLET (FP) PO SCH (10:56)
[2019-01-15] MEDS: MAGNESIUM OXIDE 400 MG TABLET (FP) PO SCH ×2 (10:56→21:53)
[2019-01-15] MEDS: POTASSIUM CHLORIDE TABS 20 MEQ TABLET.ER (FP) PO SCH (10:57)
[2019-01-15] MEDS: PANTOPRAZOLE SODIUM 40 MG VIAL IVPUSH SCH (10:59)
[2019-01-15] MEDS: FLUTICASONE PROP 0.05% 16 GM NASAL SPRAY NS SCH (11:13)
[2019-01-15] MEDS: IRON SUCROSE INJECTION 200 MG in SODIUM CHLORIDE 90 ML IVPB SCH (12:21)
--- NOTE | 2019-01-15 15:09 | PN ---
Progress Note (short form) - Note Progress Note: PULMONARY Denies shortness of breath or chest pain. Chest tube draining. Vital Signs Period Temp Pulse Resp BP Sys/Germain Pulse Ox Last 24 Hr 98.0 F-98.7 F 74-111 15-29 96-117/43-71 91-97 Intake & Output 01/12/19 01/13/19 01/14/19 01/15/19 23:59 23:59 23:59 23:59 Intake Total 482 412 725 105 Output Total 5 0 0 Balance 482 407 725 105 Gen: NAD at rest Heart: tachycardic Lung: decreased breath sounds at the bases Abd: soft, nontender Ext: no edema CBC, BMP 01/15/19 05:30 01/15/19 05:30 Active Medications Acetaminophen (Tylenol -) 650 mg PO Q6H PRN PRN Reason: PAIN LEVEL 1-5 Digoxin (Lanoxin -) 0.25 mg PO DAILY [facility] Last Admin: 01/15/19 10:56 Dose: 0.25 mg Diltiazem HCl (Cardizem -) 60 mg PO Q6HPO [facility] Last Admin: 01/15/19 12:19 Dose: Not Given Diltiazem HCl (Cardizem Injection -) 10 mg IVPUSH Q4H PRN PRN Reason: TACHYCARDIA Fluticasone Propionate (Flonase -) 2 spray NS DAILY [facility] Last Admin: 01/15/19 11:13 Dose: 2 spray Furosemide (Lasix Injection -) 40 mg IVPUSH BID@0600,1400 [facility] Last Admin: 01/15/19 05:43 Dose: 40 mg Heparin Sodium (Porcine) (Heparin -) 1,000 unit IVPUSH PRN PRN PRN Reason: Heparin Last Admin: 01/15/19 06:49 Dose: 1,000 unit Heparin Sodium (Porcine) (Heparin -) 5,000 unit IVPUSH PRN PRN PRN Reason: Heparin Heparin Sodium/Dextrose (Heparin Infusion -) 25,000 units in 500 mls @ 16 mls/ hr IVPB TITR [facility]; Protocol Last Titration: 01/15/19 06:51 Dose: 850 unit/hr, 17 mls/hr Magnesium Oxide (Mag-Ox -) 400 mg PO BID [facility] Last Admin: 01/15/19 10:56 Dose: 400 mg Ondansetron HCl (Zofran Injection) 4 mg IVPUSH Q6H PRN PRN Reason: NAUSEA Pantoprazole Sodium (Protonix Iv) 40 mg IVPUSH DAILY [facility] Last Admin: 01/15/19 10:59 Dose: 40 mg Potassium Chloride (K-Dur -) 40 meq PO DAILY [facility] Last Admin: 01/15/19 10:57 Dose: 40 meq Potassium Phos/Sodium Phos (Phos-Nak Packet -) 1 packet PO TID [facility] Last Admin: 01/15/19 14:59 Dose: 1 packet Propranolol HCl (Inderal -) 60 mg PO Q6H [facility] Last Admin: 01/15/19 10:57 Dose: Not Given Propranolol HCl (Inderal Injection -) 1 mg IVPUSH Q1H PRN PRN Reason: TACHYCARDIA A/P Large Bowel Obstruction/Ascending Colon Mass Newly Diagnosed Colon Ca s/p ex-lap/right hemicolectomy/primary ileotransverse anastamosis Atrial Fibrillation/Flutter with RVR Acute on Chronic Diastolic Heart Failure Acute RLL Pulmonary Embolism HTN GERD Dementia - continue lasix - monitor urine output, creatinine - monitor chest tube output - daily CXR while chest tube in place - pain control - incentive spirometry - rate control per cardiology - continue anticoagulation - PO as tolerated
--- NOTE | 2019-01-15 21:17 | PN ---
Progress Note, Physician History of Present Illness: clinically stable chest tube draining but amount decreasing - Current Medication List Current Medications: Active Medications Acetaminophen (Tylenol -) 650 mg PO Q6H PRN PRN Reason: PAIN LEVEL 1-5 Digoxin (Lanoxin -) 0.25 mg PO DAILY [facility] Last Admin: 01/15/19 10:56 Dose: 0.25 mg Diltiazem HCl (Cardizem -) 60 mg PO Q6HPO [facility] Last Admin: 01/15/19 18:16 Dose: 60 mg Diltiazem HCl (Cardizem Injection -) 10 mg IVPUSH Q4H PRN PRN Reason: TACHYCARDIA Fluticasone Propionate (Flonase -) 2 spray NS DAILY [facility] Last Admin: 01/15/19 11:13 Dose: 2 spray Furosemide (Lasix Injection -) 40 mg IVPUSH BID@0600,1400 [facility] Last Admin: 01/15/19 15:06 Dose: 40 mg Heparin Sodium (Porcine) (Heparin -) 1,000 unit IVPUSH PRN PRN PRN Reason: Heparin Last Admin: 01/15/19 06:49 Dose: 1,000 unit Heparin Sodium (Porcine) (Heparin -) 5,000 unit IVPUSH PRN PRN PRN Reason: Heparin Heparin Sodium/Dextrose (Heparin Infusion -) 25,000 units in 500 mls @ 16 mls/ hr IVPB TITR [facility]; Protocol Last Titration: 01/15/19 06:51 Dose: 850 unit/hr, 17 mls/hr Magnesium Oxide (Mag-Ox -) 400 mg PO BID [facility] Last Admin: 01/15/19 10:56 Dose: 400 mg Ondansetron HCl (Zofran Injection) 4 mg IVPUSH Q6H PRN PRN Reason: NAUSEA Pantoprazole Sodium (Protonix Iv) 40 mg IVPUSH DAILY [facility] Last Admin: 01/15/19 10:59 Dose: 40 mg Potassium Chloride (K-Dur -) 40 meq PO DAILY [facility] Last Admin: 01/15/19 10:57 Dose: 40 meq Potassium Phos/Sodium Phos (Phos-Nak Packet -) 1 packet PO TID [facility] Last Admin: 01/15/19 14:59 Dose: 1 packet Propranolol HCl (Inderal -) 60 mg PO Q6H [facility] Last Admin: 01/15/19 16:26 Dose: 60 mg Propranolol HCl (Inderal Injection -) 1 mg IVPUSH Q1H PRN PRN Reason: TACHYCARDIA - Objective Vital Signs: Vital Signs Temperature 98.1 F 01/15/19 15:03 Pulse Rate 120 H 01/15/19 18:14 Respiratory Rate 18 01/15/19 18:14 Blood Pressure 124/63 01/15/19 18:14 O2 Sat by Pulse Oximetry (%) 96 01/15/19 20:02 Constitutional: Yes: No Distress, Calm Cardiovascular: Yes: Tachycardia, S1, S2 Respiratory: Yes: Regular, Other (poor enty in lower lobes) Musculoskeletal: Yes: WNL Extremities: Yes: WNL Neurological: Yes: Alert Psychiatric: Yes: Alert Labs: CBC, BMP 01/15/19 05:30 01/15/19 05:30 INR, PTT INR 1.54 (0.83-1.09) H 01/11/19 05:30 Assessment/Plan - Problems (1) Colon obstruction Code(s): K56.609 - UNSP INTESTNL OBST, UNSP TO PARTIAL VERSUS COMPLETE OBST (2) Atrial fibrillation with RVR Code(s): I48.91 - UNSPECIFIED ATRIAL FIBRILLATION (3) Dementia Code(s): F03.90 - UNSPECIFIED DEMENTIA WITHOUT BEHAVIORAL DISTURBANCE (4) Esophagitis Code(s): K20.9 - ESOPHAGITIS, UNSPECIFIED (5) GERD (gastroesophageal reflux disease) Code(s): K21.9 - GASTRO-ESOPHAGEAL REFLUX DISEASE WITHOUT ESOPHAGITIS (6) Hypertension Code(s): I10 - ESSENTIAL (PRIMARY) HYPERTENSION Qualifiers: Hypertension type: essential hypertension Qualified Code(s): I10 - Essential (primary) hypertension leukocytosis pleural effusion pe pleural effusion has increased plan continue current mgmt as per the team monitor drainage monitor wbc thoracic surgery input rest as per the team
[2019-01-15] MEDS: HEPARIN INFUSION - 25,000 UNITS/500 ML INFUS.BAG IVPB SCH (21:49)
--- NOTE | 2019-01-15 22:15 | PN ---
Physical Exam: SUBJECTIVE: Patient seen and examined OBJECTIVE: Vital Signs Period Temp Pulse Resp BP Sys/Germain Pulse Ox Last 24 Hr 98.0 F-98.3 F 74-120 15-22 99-124/43-71 91-96 GENERAL: The patient is awake, alert, and fully oriented, in no acute distress. HEAD: Normal with no signs of trauma. EYES: PERRL, extraocular movements intact, sclera anicteric, conjunctiva clear. No ptosis. ENT: Ears normal, nares patent, oropharynx clear without exudates, moist mucous membranes. NECK: Trachea midline, full range of motion, supple. LUNGS: Breath sounds equal, clear to auscultation bilaterally, no wheezes, no crackles, no accessory muscle use. HEART: Regular rate and rhythm, S1, S2 without murmur, rub or gallop. ABDOMEN: Soft, nontender, nondistended, normoactive bowel sounds, no guarding, no rebound, no hepatosplenomegaly, no masses. EXTREMITIES: 2+ pulses, warm, well-perfused, no edema. NEUROLOGICAL: Cranial nerves II through XII grossly intact. Normal speech, gait not observed. PSYCH: Normal mood, normal affect. SKIN: Warm, dry, normal turgor, no rashes or lesions noted Laboratory Results - last 24 hr 01/15/19 01/15/19 01/15/19 05:30 05:30 05:30 WBC 17.6 H RBC 3.07 L Hgb 7.5 L Hct 23.8 L MCV 77.6 L MCH 24.3 L MCHC 31.3 L RDW 18.2 H Plt Count 408 MPV 7.7 Absolute Neuts (auto) 13.5 H Neutrophils % 76.7 Neutrophils % (Manual) 69.3 Band Neutrophils % 0.0 Lymphocytes % 11.0 Lymphocytes % (Manual) 10.9 D Monocytes % 10.9 H Monocytes % (Manual) 14 H D Eosinophils % 1.2 Eosinophils % (Manual) 1.0 D Basophils % 0.2 Basophils % (Manual) 0.0 Myelocytes % (Man) 3 H D Promyelocytes % (Man) 0 Blast Cells % (Manual) 0 Nucleated RBC % 0 Metamyelocytes 1 D Hypochromia 1+ Platelet Estimate Normal Polychromasia 1+ Poikilocytosis 1+ Anisocytosis 1+ Microcytosis 2+ Macrocytosis 0 Ovalocytes 1+ Schistocytes 1+ PTT (Actin FS) 48.1 H Sodium 132 L Potassium 4.4 Chloride 93 L Carbon Dioxide 37 H Anion Gap 3 L BUN 13 Creatinine 0.4 L Creat Clearance w eGFR 151.70 Random Glucose 105 Calcium 7.2 L Total Bilirubin 0.2 AST 13 L ALT 9 L Alkaline Phosphatase 71 Total Protein 4.3 L Albumin 1.4 L 01/15/19 12:43 WBC RBC Hgb Hct MCV MCH MCHC RDW Plt Count MPV Absolute Neuts (auto) Neutrophils % Neutrophils % (Manual) Band Neutrophils % Lymphocytes % Lymphocytes % (Manual) Monocytes % Monocytes % (Manual) Eosinophils % Eosinophils % (Manual) Basophils % Basophils % (Manual) Myelocytes % (Man) Promyelocytes % (Man) Blast Cells % (Manual) Nucleated RBC % Metamyelocytes Hypochromia Platelet Estimate Polychromasia Poikilocytosis Anisocytosis Microcytosis Macrocytosis Ovalocytes Schistocytes PTT (Actin FS) 55.2 H Sodium Potassium Chloride Carbon Dioxide Anion Gap BUN Creatinine Creat Clearance w eGFR Random Glucose Calcium Total Bilirubin AST ALT Alkaline Phosphatase Total Protein Albumin Active Medications Generic Name Dose Route Start Last Admin Trade Name Freq PRN Reason Stop Dose Admin Acetaminophen 650 mg 01/03/19 08:46 Tylenol - PO Q6H PRN PAIN LEVEL 1-5 Digoxin 0.25 mg 01/12/19 11:00 01/15/19 10:56 Lanoxin - PO 0.25 mg DAILY [facility] Administration Diltiazem HCl 60 mg 12/29/18 00:00 01/15/19 18:16 Cardizem - PO 60 mg Q6HPO [facility] Administration Diltiazem HCl 10 mg 12/28/18 20:38 Cardizem Injection - IVPUSH Q4H PRN TACHYCARDIA Fluticasone Propionate 2 spray 12/29/18 10:00 01/15/19 11:13 Flonase - NS 2 spray DAILY [facility] Administration Furosemide 40 mg 01/06/19 06:00 01/15/19 15:06 Lasix Injection - IVPUSH 40 mg BID@0600,1400 [facility] Administration Heparin Sodium (Porcine) 1,000 unit 01/11/19 21:16 01/15/19 06:49 Heparin - IVPUSH 1,000 unit PRN PRN Administration Heparin Heparin Sodium (Porcine) 5,000 unit 01/11/19 21:16 Heparin - IVPUSH PRN PRN Heparin Heparin Sodium/Dextrose 25,000 units in 500 mls @ 16 mls/hr 01/11/19 21:30 21:49 Heparin Infusion - IVPB 850 unit/hr TITR [facility] 17 mls/hr Administration Protocol 800 UNIT/HR Magnesium Oxide 400 mg 01/03/19 22:00 01/15/19 21:53 Mag-Ox - PO 400 mg BID [facility] Administration Ondansetron HCl 4 mg 12/28/18 20:38 Zofran Injection IVPUSH Q6H PRN NAUSEA Pantoprazole Sodium 40 mg 12/29/18 10:00 01/15/19 10:59 Protonix Iv IVPUSH 40 mg DAILY [facility] Administration Potassium Chloride 40 meq 01/12/19 10:00 01/15/19 10:57 K-Dur - PO 40 meq DAILY [facility] Administration Potassium Phos/Sodium Phos 1 packet 12/28/18 14:00 01/15/19 21:53 Phos-Nak Packet - PO 1 packet TID [facility] Administration Propranolol HCl 60 mg 12/28/18 22:00 01/15/19 21:53 Inderal - PO 60 mg Q6H [facility] Administration Propranolol HCl 1 mg 12/28/18 20:38 Inderal Injection - IVPUSH Q1H PRN TACHYCARDIA ASSESSMENT/PLAN: Problem List - Problems (1) Dementia Code(s): F03.90 - UNSPECIFIED DEMENTIA WITHOUT BEHAVIORAL DISTURBANCE (2) Flutter-fibrillation Code(s): I49.8 - OTHER SPECIFIED CARDIAC ARRHYTHMIAS (3) GERD (gastroesophageal reflux disease) Code(s): K21.9 - GASTRO-ESOPHAGEAL REFLUX DISEASE WITHOUT ESOPHAGITIS (4) Large bowel obstruction Code(s): K56.609 - UNSP INTESTNL OBST, UNSP TO PARTIAL VERSUS COMPLETE OBST Visit type - Emergency Visit Emergency Visit: Yes ED Registration Date: 12/22/18 Care time: The patient presented to the Emergency Department on the above date and was hospitalized for further evaluation of their emergent condition. - New Patient This patient is new to me today: No - Critical Care Critical Care patient: No - Discharge Referral Referred to [facility] No
[2019-01-16] MEDS: dilTIAZem HCL 60 MG TABLET (FP) PO SCH ×4 (00:45→17:38)
--- NOTE | 2019-01-16 05:36 | PN ---
Progress Note (short form) - Note Progress Note: patient seen and examined confused Last Vital Signs Temp Pulse Resp BP Pulse Ox 98.2 F 86 18 105/61 96 01/16/19 02:00 01/16/19 02:00 01/16/19 02:00 01/16/19 02:00 01/15/19 20:02 Cor: RSR, No murmurs, No gallops Lungs: Clear to P&A Abd: Soft, Normal bowel sounds, No organomegaly Ext:No significant edema Labs/meds reviewed a/p 83 y/o patient with dementia, afib, large bowel obstrucstion s/p Exploratory laparotomy, right toribio colectomy with primary ileotransverse stapled anastomosis for obstructing ascending colon mass, obvious transition point, large palpable mesenteric lymph nodes taken en-bloc in the root of the mestentary. 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
[2019-01-16 06:09] LABS: HEMATOCRIT 25.5 % (32.4-45.2); HEMOGLOBIN 7.9 GM/dL (10.7-15.3); MEAN CELL VOLUME 77.6 fl (80-96); MEAN PLT VOLUME 7.5 fl (7.5-11.1); PLATELET COUNT 386 K/MM3 (134-434); RBC 3.28 M/mm3 (3.60-5.2); RDW 18.4 % (11.6-15.6); WHITE BLOOD COUNT 17.5 K/mm3 (4.0-10.0)
[2019-01-16] MEDS: NAPH,MB-DB/K PH,MBDB POWDER PACKET PO SCH ×3 (06:33→22:05)
[2019-01-16] MEDS: FUROSEMIDE 40 MG/4 ML INJECTABLE VIAL IVPUSH SCH ×2 (06:33→15:00)
[2019-01-16 06:35] LABS: ALBUMIN 1.5 g/dl (3.4-5.0); ALK PHOS 57 U/L (45-117); ANION GAP 4 MMOL/L (8-16); BILIRUBIN,TOTAL 0.3 mg/dL (0.2-1); BLOOD UREA NITROGEN 10 mg/dL (7-18); CHLORIDE 93 mmol/L (98-107); CO2 35 mmol/L (21-32); CREATININE 0.4 mg/dL (0.55-1.3); GLUCOSE,RANDOM 97 mg/dL (74-106); MAGNESIUM 1.5 mg/dL (1.8-2.4); POTASSIUM 4.2 mmol/L (3.5-5.1); SGOT/AST 19 U/L (15-37); SGPT/ALT 12 U/L (13-61); SODIUM 132 mmol/L (136-145); TOT PROT 4.5 g/dl (6.4-8.2)
[2019-01-16] MEDS ORDERED: PT OWN MED DRAWER 7, Y5N ONE ×2 (07:48→11:47)
--- NOTE | 2019-01-16 09:27 | PN ---
Progress Note (short form) - Note Progress Note: Chief Complaint: bowel mass/obstruction, pleural effusion History of Present Illness: no chest pain, sob, palps, edema Current Medications Acetaminophen (Tylenol -) 650 mg PO Q6H PRN PRN Reason: PAIN LEVEL 1-5 Digoxin (Lanoxin -) 0.25 mg PO DAILY [facility] Last Admin: 01/15/19 10:56 Dose: 0.25 mg Diltiazem HCl (Cardizem -) 60 mg PO Q6HPO [facility] Last Admin: 01/16/19 06:33 Dose: 60 mg Diltiazem HCl (Cardizem Injection -) 10 mg IVPUSH Q4H PRN PRN Reason: TACHYCARDIA Fluticasone Propionate (Flonase -) 2 spray NS DAILY [facility] Last Admin: 01/15/19 11:13 Dose: 2 spray Furosemide (Lasix Injection -) 40 mg IVPUSH BID@0600,1400 [facility] Last Admin: 01/16/19 06:33 Dose: 40 mg Heparin Sodium (Porcine) (Heparin -) 1,000 unit IVPUSH PRN PRN PRN Reason: Heparin Last Admin: 01/15/19 06:49 Dose: 1,000 unit Heparin Sodium (Porcine) (Heparin -) 5,000 unit IVPUSH PRN PRN PRN Reason: Heparin Heparin Sodium/Dextrose (Heparin Infusion -) 25,000 units in 500 mls @ 16 mls/ hr IVPB TITR [facility]; Protocol Last Titration: 01/16/19 07:53 Dose: 850 unit/hr, 17 mls/hr Magnesium Oxide (Mag-Ox -) 400 mg PO BID [facility] Last Admin: 01/15/19 21:53 Dose: 400 mg Ondansetron HCl (Zofran Injection) 4 mg IVPUSH Q6H PRN PRN Reason: NAUSEA Pantoprazole Sodium (Protonix Iv) 40 mg IVPUSH DAILY [facility] Last Admin: 01/15/19 10:59 Dose: 40 mg Potassium Chloride (K-Dur -) 40 meq PO DAILY [facility] Last Admin: 01/15/19 10:57 Dose: 40 meq Potassium Phos/Sodium Phos (Phos-Nak Packet -) 1 packet PO TID [facility] Last Admin: 01/16/19 06:33 Dose: 1 packet Propranolol HCl (Inderal -) 60 mg PO Q6H [facility] Last Admin: 01/16/19 04:52 Dose: Not Given Propranolol HCl (Inderal Injection -) 1 mg IVPUSH Q1H PRN PRN Reason: TACHYCARDIA - Objective Vital Signs: Vital Signs Period Temp Pulse Resp BP Sys/Germain Pulse Ox Last 24 Hr 97.7 F-98.4 F 85-120 16-20 105-145/50-99 96 Constitutional: Yes: Well Nourished, No Distress, Calm Cardiovascular: Yes: Pulse Irregular, S1, S2. No: Gallop, Murmur Respiratory: Yes: Regular, CTA Bilaterally (anteriorly). No: Accessory Muscle Use, Wheezes Extremities: No: Cold Edema: No Neurological: Yes: Alert. No: Seizure Psychiatric: No: Agitated Assessment/Plan ecg: aflutter with 2:1 avb, vr 127, no ischemic changes CXR 12/28: slight incr bilat pulm/pleural changes Echo 12/2018: small LV cavity, hyperdynamic. mild-mod dilated RV, hyperdynamic RVSF. mild ERIK. mild-mod MR (eccentric). RVSP 30-35 CTA chest acute RLL PE, mod R and small left pleural effusions tele: AF mostly controlled, at times to 120s bpm a/p: 83 f hx dementia, afib/flutter, gerd, htn, tia, sent from [place] for coffee ground emesis. aflutter: - was on diltiazem 60 mg QID and propranolol 120 mg BID at home-->npo postop bowel surgery with tachycardia and hypotensive on levophed-->amio gtt started with persistent tachycardia. hemodynamics improved-->amio d/c'd, prn iv diltiazem ordered - 12/25: H?R 140s, no response to IV diltiazem pushes, SBP dropped to 80s. d/w'd icu team: will start non-chronotropic vasoconstrictor pressor, then initiate low dose PO and IV propranolol trial for HR control. - ti held briefly during 12/05 admit with GIB, resumed on discharge with plan for outpt GI scopes. H/H were stable when arrived this time with SBO, ti now on hold for surgery - 12/26: HR remains 130s, will increase propranolol to 60 mg QID (home dose is propranolol long acting 120 mg BID). If BP tolerates would restart PO diltiazem as well, at home was on 60 mg QID - 12/27: eliquis resumed, HR 130s. change eliquis to 5 mg BID dosing (age >80 however she is >60 kg and Cr <1.5, does not meet criteria for low dose and was on full dose prior). BP improved today, will restart diltiazem 60 mg Q6H 12/28: HR improved but still fast at times, cont same dilt/inderal for now as bp on low side and monitor on tele. -12/29-: rates good, BPs soft--same meds -01/04-: rvr to 120s at times, pt tolerating and bp low side so cont same rate meds for now -01/07: 3 doses of propranolol held for low BP yesterday, rate 120s, received diltiazem. d/w RN to give propranolol first, monitor BP and give diltiazem if BP stable K 2.9, replete lytes for K >4.0, Mg >2.0 -01/08: bp consistently 90s > 80s systolic, rates rapid--start digoxin (may need load if remains tachy later) -01/09: did not receive propranolol or diltiazem due to low BP yesterday, HR remains 120s on digoxin. start amiodarone gtt -01/10-: rate 90s-120s on amiodarone, propranolol and diltiazem held due to low BP. cont amiodarone -01/12: HR remains fast despite several days of iv amio, thus will dc amio. Cont bb/ccb. Will also start digoxin. -01/13-01/16: rate control acceptable. cont bb/ccb, dig, monitor dig levels- if trends up may need decr to 0.125 mg dose - holding eliquis, on heparin gtt s/p chest tube. restart eliquis when able per IR hypotension - ? intravasc contracted (low albumin/low oncotic pressure, on lasix) - deferring pressors at present, given normal mentation Pulmonary embolism, pleural effusions, acute diast CHF, severe hypoalbuminuria: - pulm congestion on CXR after receiving IVF here, was diuresed - echo with dilated RV (normal function), no signific pulm HTN per TR gradient measurable on that study. Pt at risk for PE given: (1) AC had been held here for several days preop/postop, (2) she has new dx of colon malignancy; (3) she is postop and bedbound. - LE venous dopplers no DVT - CTA chest acute RLL PE - on eliquis - betzy pleural effusions on CTA 01/02- had been getting prn iv lasix - CT abd/pelvis 01/05 shows large R pleural effusion increased in size - now on lasix 40 mg IV BID, continue - pleural effusion mgmt per crit care, thoracic surgery, s/p chest tube with continued serosanguinous drainage sbo, colon mass: -s/p surgery, found to have colon ca, onc following
[2019-01-16] MEDS: FLUTICASONE PROP 0.05% 16 GM NASAL SPRAY NS SCH (10:34)
[2019-01-16] MEDS: PANTOPRAZOLE SODIUM 40 MG VIAL IVPUSH SCH (10:35)
[2019-01-16] MEDS: POTASSIUM CHLORIDE TABS 20 MEQ TABLET.ER (FP) PO SCH (10:35)
[2019-01-16] MEDS: MAGNESIUM OXIDE 400 MG TABLET (FP) PO SCH ×2 (10:35→22:04)
[2019-01-16] MEDS: ACETAMINOPHEN 325 MG TABLET (FP) PO PRN (11:50)
[2019-01-16] MEDS: DIGOXIN 0.25 MG TABLET (FP) PO SCH (11:50)
--- NOTE | 2019-01-16 14:12 | PN ---
Progress Note (short form) - Note Progress Note: PULMONARY Denies shortness of breath or chest pain. Minimal chest tube output. Vital Signs Period Temp Pulse Resp BP Sys/Germain Pulse Ox Last 24 Hr 97.5 F-98.4 F 85-134 16-21 93-145/50-99 96-96 Gen: NAD at rest Heart: tachycardic Lung: decreased breath sounds at the bases Abd: soft, nontender Ext: no edema CBC, BMP 01/16/19 05:30 01/16/19 05:30 Active Medications Acetaminophen (Tylenol -) 650 mg PO Q6H PRN PRN Reason: PAIN LEVEL 1-5 Last Admin: 01/16/19 11:50 Dose: 650 mg Digoxin (Lanoxin -) 0.25 mg PO DAILY [facility] Last Admin: 01/16/19 11:50 Dose: 0.25 mg Diltiazem HCl (Cardizem -) 60 mg PO Q6HPO [facility] Last Admin: 01/16/19 06:33 Dose: 60 mg Diltiazem HCl (Cardizem Injection -) 10 mg IVPUSH Q4H PRN PRN Reason: TACHYCARDIA Fluticasone Propionate (Flonase -) 2 spray NS DAILY [facility] Last Admin: 01/16/19 10:34 Dose: 2 spray Furosemide (Lasix Injection -) 40 mg IVPUSH BID@0600,1400 [facility] Last Admin: 01/16/19 06:33 Dose: 40 mg Heparin Sodium (Porcine) (Heparin -) 1,000 unit IVPUSH PRN PRN PRN Reason: Heparin Last Admin: 01/15/19 06:49 Dose: 1,000 unit Heparin Sodium (Porcine) (Heparin -) 5,000 unit IVPUSH PRN PRN PRN Reason: Heparin Heparin Sodium/Dextrose (Heparin Infusion -) 25,000 units in 500 mls @ 16 mls/ hr IVPB TITR [facility]; Protocol Last Titration: 01/16/19 07:53 Dose: 850 unit/hr, 17 mls/hr Magnesium Oxide (Mag-Ox -) 400 mg PO BID [facility] Last Admin: 01/16/19 10:35 Dose: 400 mg Ondansetron HCl (Zofran Injection) 4 mg IVPUSH Q6H PRN PRN Reason: NAUSEA Pantoprazole Sodium (Protonix Iv) 40 mg IVPUSH DAILY [facility] Last Admin: 01/16/19 10:35 Dose: 40 mg Potassium Chloride (K-Dur -) 40 meq PO DAILY [facility] Last Admin: 01/16/19 10:35 Dose: 40 meq Potassium Phos/Sodium Phos (Phos-Nak Packet -) 1 packet PO TID [facility] Last Admin: 01/16/19 06:33 Dose: 1 packet Propranolol HCl (Inderal -) 60 mg PO Q6H [facility] Last Admin: 01/16/19 11:51 Dose: 60 mg Propranolol HCl (Inderal Injection -) 1 mg IVPUSH Q1H PRN PRN Reason: TACHYCARDIA A/P Large Bowel Obstruction/Ascending Colon Mass Newly Diagnosed Colon Ca s/p ex-lap/right hemicolectomy/primary ileotransverse anastamosis Atrial Fibrillation/Flutter with RVR Acute on Chronic Diastolic Heart Failure Acute RLL Pulmonary Embolism HTN GERD Dementia - continue lasix - monitor urine output, creatinine - monitor chest tube output - daily CXR while chest tube in place - may need to repeat CT chest if chest tube not draining - pain control - incentive spirometry - rate control per cardiology - continue anticoagulation - PO as tolerated
--- NOTE | 2019-01-16 14:15 | PN ---
Progress Note, Physician History of Present Illness: wbc still high chest tube with minimal drainage - Current Medication List Current Medications: Active Medications Acetaminophen (Tylenol -) 650 mg PO Q6H PRN PRN Reason: PAIN LEVEL 1-5 Last Admin: 01/16/19 11:50 Dose: 650 mg Digoxin (Lanoxin -) 0.25 mg PO DAILY [facility] Last Admin: 01/16/19 11:50 Dose: 0.25 mg Diltiazem HCl (Cardizem -) 60 mg PO Q6HPO [facility] Last Admin: 01/16/19 06:33 Dose: 60 mg Diltiazem HCl (Cardizem Injection -) 10 mg IVPUSH Q4H PRN PRN Reason: TACHYCARDIA Fluticasone Propionate (Flonase -) 2 spray NS DAILY [facility] Last Admin: 01/16/19 10:34 Dose: 2 spray Furosemide (Lasix Injection -) 40 mg IVPUSH BID@0600,1400 [facility] Last Admin: 01/16/19 06:33 Dose: 40 mg Heparin Sodium (Porcine) (Heparin -) 1,000 unit IVPUSH PRN PRN PRN Reason: Heparin Last Admin: 01/15/19 06:49 Dose: 1,000 unit Heparin Sodium (Porcine) (Heparin -) 5,000 unit IVPUSH PRN PRN PRN Reason: Heparin Heparin Sodium/Dextrose (Heparin Infusion -) 25,000 units in 500 mls @ 16 mls/ hr IVPB TITR [facility]; Protocol Last Titration: 01/16/19 07:53 Dose: 850 unit/hr, 17 mls/hr Magnesium Oxide (Mag-Ox -) 400 mg PO BID [facility] Last Admin: 01/16/19 10:35 Dose: 400 mg Ondansetron HCl (Zofran Injection) 4 mg IVPUSH Q6H PRN PRN Reason: NAUSEA Pantoprazole Sodium (Protonix Iv) 40 mg IVPUSH DAILY [facility] Last Admin: 01/16/19 10:35 Dose: 40 mg Potassium Chloride (K-Dur -) 40 meq PO DAILY [facility] Last Admin: 01/16/19 10:35 Dose: 40 meq Potassium Phos/Sodium Phos (Phos-Nak Packet -) 1 packet PO TID [facility] Last Admin: 01/16/19 06:33 Dose: 1 packet Propranolol HCl (Inderal -) 60 mg PO Q6H [facility] Last Admin: 01/16/19 11:51 Dose: 60 mg Propranolol HCl (Inderal Injection -) 1 mg IVPUSH Q1H PRN PRN Reason: TACHYCARDIA - Objective Vital Signs: Vital Signs Temperature 97.8 F 01/16/19 14:00 Pulse Rate 134 H 01/16/19 14:00 Respiratory Rate 21 H 01/16/19 14:00 Blood Pressure 115/61 01/16/19 14:00 O2 Sat by Pulse Oximetry (%) 98 01/16/19 14:10 Constitutional: Yes: No Distress, Calm Cardiovascular: Yes: S1, S2 Respiratory: Yes: On Nasal O2, Poor Air Entry, Other Gastrointestinal: Yes: Normal Bowel Sounds, Soft Musculoskeletal: Yes: WNL Extremities: Yes: WNL Neurological: Yes: Alert Psychiatric: Yes: Alert Labs: CBC, BMP 01/16/19 05:30 01/16/19 05:30 INR, PTT INR 1.54 (0.83-1.09) H 01/11/19 05:30 Assessment/Plan - Problems (1) Colon obstruction Code(s): K56.609 - UNSP INTESTNL OBST, UNSP TO PARTIAL VERSUS COMPLETE OBST (2) Atrial fibrillation with RVR Code(s): I48.91 - UNSPECIFIED ATRIAL FIBRILLATION (3) Dementia Code(s): F03.90 - UNSPECIFIED DEMENTIA WITHOUT BEHAVIORAL DISTURBANCE (4) Esophagitis Code(s): K20.9 - ESOPHAGITIS, UNSPECIFIED (5) GERD (gastroesophageal reflux disease) Code(s): K21.9 - GASTRO-ESOPHAGEAL REFLUX DISEASE WITHOUT ESOPHAGITIS (6) Hypertension Code(s): I10 - ESSENTIAL (PRIMARY) HYPERTENSION Qualifiers: Hypertension type: essential hypertension Qualified Code(s): I10 - Essential (primary) hypertension leukocytosis pleural effusion pe pleural effusion has increased plan continue current mgmt as per the team await for final cx reports patient will need ct scan of the chest to see why so low draiange might need to change the tube monitor wbc
--- NOTE | 2019-01-16 16:58 | PN ---
Physical Exam: SUBJECTIVE: Patient seen and examined WBC remains elevated at 17.5 awaiting pulmonary consult for b/l pleural effusions OBJECTIVE: Vital Signs Period Temp Pulse Resp BP Sys/Germain Pulse Ox Last 24 Hr 97.5 F-98.4 F 85-134 16-21 93-145/50-99 96-98 GENERAL: The patient is awake, alert in no acute distress. HEAD: Normal with no signs of trauma. EYES: PERRL, sclera anicteric, conjunctiva clear. ENT: nares patent, moist mucous membranes. NECK: Trachea midline, supple LUNGS: + scattered crackles, with diminished BS at the bases, no accessory muscle use. Right chest tube in situ HEART: irreg RR, no murmurs appreciated ABDOMEN: Soft, nontender, nondistended, normoactive bowel sounds, no guarding, EXTREMITIES: 2+ pulses, warm, well-perfused, no edema. NEUROLOGICAL: poor memory. Normal speech pattern, PSYCH: Normal mood, normal affect. SKIN: Warm, dry, normal turgor, abd incision well healed Laboratory Results - last 24 hr 01/16/19 01/16/19 01/16/19 05:30 05:30 05:30 WBC 17.5 H RBC 3.28 L Hgb 7.9 L Hct 25.5 L MCV 77.6 L MCH 24.0 L MCHC 31.0 L RDW 18.4 H Plt Count 386 MPV 7.5 PTT (Actin FS) 53.4 H Sodium 132 L Potassium 4.2 Chloride 93 L Carbon Dioxide 35 H Anion Gap 4 L BUN 10 Creatinine 0.4 L Creat Clearance w eGFR 151.70 Random Glucose 97 Calcium 8.0 L Magnesium 1.5 L Total Bilirubin 0.3 AST 19 ALT 12 L Alkaline Phosphatase 57 Total Protein 4.5 L Albumin 1.5 L Active Medications Generic Name Dose Route Start Last Admin Trade Name Freq PRN Reason Stop Dose Admin Acetaminophen 650 mg 01/03/19 08:46 01/16/19 11:50 Tylenol - PO 650 mg Q6H PRN Administration PAIN LEVEL 1-5 Digoxin 0.25 mg 01/12/19 11:00 01/16/19 11:50 Lanoxin - PO 0.25 mg DAILY OBDULIO Administration Diltiazem HCl 60 mg 12/29/18 00:00 01/16/19 12:00 Cardizem - PO 60 mg Q6HPO OBDULIO Administration Diltiazem HCl 10 mg 12/28/18 20:38 Cardizem Injection - IVPUSH Q4H PRN TACHYCARDIA Fluticasone Propionate 2 spray 12/29/18 10:00 01/16/19 10:34 Flonase - NS 2 spray DAILY OBDULIO Administration Furosemide 40 mg 01/06/19 06:00 01/16/19 06:33 Lasix Injection - IVPUSH 40 mg BID@0600,1400 OBDULIO Administration Heparin Sodium (Porcine) 1,000 unit 01/11/19 21:16 01/15/19 06:49 Heparin - IVPUSH 1,000 unit PRN PRN Administration Heparin Heparin Sodium (Porcine) 5,000 unit 01/11/19 21:16 Heparin - IVPUSH PRN PRN Heparin Heparin Sodium/Dextrose 25,000 units in 500 mls @ 16 mls/hr 01/11/19 21:30 07:53 Heparin Infusion - IVPB 850 unit/hr TITR OBDULIO 17 mls/hr Titration Protocol 800 UNIT/HR Magnesium Oxide 400 mg 01/03/19 22:00 01/16/19 10:35 Mag-Ox - PO 400 mg BID OBDULIO Administration Mirtazapine 7.5 mg 01/16/19 22:00 Remeron - PO HS OBDULIO Ondansetron HCl 4 mg 12/28/18 20:38 Zofran Injection IVPUSH Q6H PRN NAUSEA Pantoprazole Sodium 40 mg 12/29/18 10:00 01/16/19 10:35 Protonix Iv IVPUSH 40 mg DAILY OBDULIO Administration Potassium Chloride 40 meq 01/12/19 10:00 01/16/19 10:35 K-Dur - PO 40 meq DAILY OBDULIO Administration Potassium Phos/Sodium Phos 1 packet 12/28/18 14:00 01/16/19 06:33 Phos-Nak Packet - PO 1 packet TID OBDULIO Administration Propranolol HCl 60 mg 12/28/18 22:00 01/16/19 11:51 Inderal - PO 60 mg Q6H OBDULIO Administration Propranolol HCl 1 mg 12/28/18 20:38 Inderal Injection - IVPUSH Q1H PRN TACHYCARDIA ASSESSMENT/PLAN:83 year old female with past medical history of reflux, esophagitis, dementia, hallucinations, ataxia, HTN, benign neoplasm of cerebral meninges, who presents to the emergency department via EMS from [facility] due to nausea and vomiting. She was found to have Large bowel obstruction secondary to right colon mass- s/p exploratory laparotomy, right hemicolectomy, primary ileotransverse anastamosis on 12/22; brook have been removed. Pathology demonstrates Moderately differentiated adenocarcinoma of the colon- [id number]. oncology has been consulted, however likely not a candidate for treatment due to hypoalbuminemia and poor functional status. outpatient follow up. Problem List - Problems (1) Dementia Assessment/Plan: frequent reorientation and reassurance Code(s): F03.90 - UNSPECIFIED DEMENTIA WITHOUT BEHAVIORAL DISTURBANCE (2) Flutter-fibrillation Assessment/Plan: propranolol 1mg Q1h PRN sustained tachycardia Propranolol 60 mg PO QID Cardizem 60mg QID heparin drip, follow PTT as per protocol digoxin 0.25mg daily Code(s): I49.8 - OTHER SPECIFIED CARDIAC ARRHYTHMIAS (3) GERD (gastroesophageal reflux disease) Assessment/Plan: protonix daily zofran PRN nausea Code(s): K21.9 - GASTRO-ESOPHAGEAL REFLUX DISEASE WITHOUT ESOPHAGITIS (4) Anemia Assessment/Plan: trend H/H transfuse for hgb < 7.0 Code(s): D64.9 - ANEMIA, UNSPECIFIED (5) Colon cancer s/p resection of colonic mass. Assessment/Plan: Case reviewed with heme-onc, Chemotherapeutic agents are not ideal for this patient Code(s): C18.9 - MALIGNANT NEOPLASM OF COLON, UNSPECIFIED (6) Pleural effusion Assessment/Plan: s/p right chest tube Lasix BID Pulm consult for inpt regarding need for Pleurex drain CXR 01/15 demonstrates decreased atelectasis in right base, minimal drainage from chest tube Code(s): J90 - PLEURAL EFFUSION, NOT ELSEWHERE CLASSIFIED 7. Leukocytosis -blood and urine cultures with AM labs 8.DISPO -start discharge planning. [facility] will accept pt back, if she does not have chest tube. -DNR/DNI Problem List - Problems (1) Dementia Code(s): F03.90 - UNSPECIFIED DEMENTIA WITHOUT BEHAVIORAL DISTURBANCE (2) Flutter-fibrillation Code(s): I49.8 - OTHER SPECIFIED CARDIAC ARRHYTHMIAS (3) GERD (gastroesophageal reflux disease) Code(s): K21.9 - GASTRO-ESOPHAGEAL REFLUX DISEASE WITHOUT ESOPHAGITIS (4) Anemia Code(s): D64.9 - ANEMIA, UNSPECIFIED (5) Colon cancer Code(s): C18.9 - MALIGNANT NEOPLASM OF COLON, UNSPECIFIED (6) Pleural effusion Code(s): J90 - PLEURAL EFFUSION, NOT ELSEWHERE CLASSIFIED Visit type - Emergency Visit Emergency Visit: Yes ED Registration Date: 12/22/18 Care time: The patient presented to the Emergency Department on the above date and was hospitalized for further evaluation of their emergent condition. - New Patient This patient is new to me today: No - Critical Care Critical Care patient: No - Discharge Referral Referred to [facility] No
[2019-01-16] MEDS: MIRTAZAPINE 15 MG TABLET (FP) PO SCH (22:06)
[2019-01-17] MEDS: HEPARIN INFUSION - 25,000 UNITS/500 ML INFUS.BAG IVPB SCH ×2 (06:34→22:36)
[2019-01-17 06:35] LABS: HEMOGLOBIN 8.4 GM/dL (10.7-15.3); MCH 24.7 pg (25.7-33.7); MCHC 31.1 g/dl (32.0-36.0); MEAN CELL VOLUME 79.2 fl (80-96); MEAN PLT VOLUME 7.5 fl (7.5-11.1); PLATELET COUNT 443 K/MM3 (134-434); RDW 19.2 % (11.6-15.6); WHITE BLOOD COUNT 18.2 K/mm3 (4.0-10.0)
[2019-01-17] MEDS: FUROSEMIDE 40 MG/4 ML INJECTABLE VIAL IVPUSH SCH ×2 (06:36→13:38)
[2019-01-17] MEDS: dilTIAZem HCL 60 MG TABLET (FP) PO SCH ×4 (06:36→18:43)
[2019-01-17 07:21] LABS: ANION GAP 4 MMOL/L (8-16); BLOOD UREA NITROGEN 12 mg/dL (7-18); CALCIUM 8.8 mg/dL (8.5-10.1); CHLORIDE 93 mmol/L (98-107); CO2 34 mmol/L (21-32); CREATININE 0.5 mg/dL (0.55-1.3); GLUCOSE,RANDOM 99 mg/dL (74-106); SODIUM 131 mmol/L (136-145); TOT PROT 5.2 g/dl (6.4-8.2)
[2019-01-17 07:22] LABS: ALBUMIN 1.8 g/dl (3.4-5.0); ALK PHOS 68 U/L (45-117); BILIRUBIN,TOTAL 0.3 mg/dL (0.2-1); SGOT/AST 20 U/L (15-37); SGPT/ALT 18 U/L (13-61)
[2019-01-17] MEDS: NAPH,MB-DB/K PH,MBDB POWDER PACKET PO SCH ×3 (07:52→22:39)
--- NOTE | 2019-01-17 09:18 | PN ---
Progress Note (short form) - Note Progress Note: Chief Complaint: bowel mass/obstruction, pleural effusion History of Present Illness: no chest pain, sob, palps, edema Current Medications Acetaminophen (Tylenol -) 650 mg PO Q6H PRN PRN Reason: PAIN LEVEL 1-5 Last Admin: 01/16/19 11:50 Dose: 650 mg Digoxin (Lanoxin -) 0.25 mg PO DAILY [facility] Last Admin: 01/16/19 11:50 Dose: 0.25 mg Diltiazem HCl (Cardizem -) 60 mg PO Q6HPO [facility] Last Admin: 01/17/19 06:36 Dose: 60 mg Diltiazem HCl (Cardizem Injection -) 10 mg IVPUSH Q4H PRN PRN Reason: TACHYCARDIA Fluticasone Propionate (Flonase -) 2 spray NS DAILY [facility] Last Admin: 01/16/19 10:34 Dose: 2 spray Furosemide (Lasix Injection -) 40 mg IVPUSH BID@0600,1400 [facility] Last Admin: 01/17/19 06:36 Dose: 40 mg Heparin Sodium (Porcine) (Heparin -) 1,000 unit IVPUSH PRN PRN PRN Reason: Heparin Last Admin: 01/15/19 06:49 Dose: 1,000 unit Heparin Sodium (Porcine) (Heparin -) 5,000 unit IVPUSH PRN PRN PRN Reason: Heparin Heparin Sodium/Dextrose (Heparin Infusion -) 25,000 units in 500 mls @ 16 mls/ hr IVPB TITR [facility]; Protocol Last Admin: 01/17/19 06:34 Dose: 850 unit/hr, 17 mls/hr Magnesium Oxide (Mag-Ox -) 400 mg PO BID [facility] Last Admin: 01/16/19 22:04 Dose: 400 mg Mirtazapine (Remeron -) 7.5 mg PO HS [facility] Last Admin: 01/16/19 22:06 Dose: 7.5 mg Ondansetron HCl (Zofran Injection) 4 mg IVPUSH Q6H PRN PRN Reason: NAUSEA Pantoprazole Sodium (Protonix Iv) 40 mg IVPUSH DAILY [facility] Last Admin: 01/16/19 10:35 Dose: 40 mg Potassium Chloride (K-Dur -) 40 meq PO DAILY [facility] Last Admin: 01/16/19 10:35 Dose: 40 meq Potassium Phos/Sodium Phos (Phos-Nak Packet -) 1 packet PO TID [facility] Last Admin: 01/17/19 07:52 Dose: Not Given Propranolol HCl (Inderal -) 60 mg PO Q6H [facility] Last Admin: 01/17/19 04:00 Dose: 60 mg Propranolol HCl (Inderal Injection -) 1 mg IVPUSH Q1H PRN PRN Reason: TACHYCARDIA - Objective Vital Signs: Vital Signs Period Temp Pulse Resp BP Sys/Germain Pulse Ox Last 24 Hr 97.5 F-98.7 F 65-135 20-22 93-123/45-62 98-98 Constitutional: Yes: Well Nourished, No Distress, Calm Cardiovascular: Yes: Pulse Irregular, S1, S2. No: Gallop, Murmur Respiratory: Yes: Regular, CTA Bilaterally (anteriorly). No: Accessory Muscle Use, Wheezes Extremities: No: Cold Edema: No Neurological: Yes: Alert. No: Seizure Psychiatric: No: Agitated Assessment/Plan ecg: aflutter with 2:1 avb, vr 127, no ischemic changes CXR 12/28: slight incr bilat pulm/pleural changes Echo 12/2018: small LV cavity, hyperdynamic. mild-mod dilated RV, hyperdynamic RVSF. mild ERIK. mild-mod MR (eccentric). RVSP 30-35 CTA chest acute RLL PE, mod R and small left pleural effusions tele: AF 130s yesterday, rate ok today a/p: 83 f hx dementia, afib/flutter, gerd, htn, tia, [place] coffee ground emesis. aflutter: - was on diltiazem 60 mg QID and propranolol 120 mg BID at home-->npo postop bowel surgery with tachycardia and hypotensive on levophed-->amio gtt started with persistent tachycardia. hemodynamics improved-->amio d/c'd, prn iv diltiazem ordered - 12/25: H?R 140s, no response to IV diltiazem pushes, SBP dropped to 80s. d/w'd icu team: will start non-chronotropic vasoconstrictor pressor, then initiate low dose PO and IV propranolol trial for HR control. - ti held briefly during 12/05 admit with GIB, resumed on discharge with plan for outpt GI scopes. H/H were stable when arrived this time with SBO, eliquis now on hold for surgery - 12/26: HR remains 130s, will increase propranolol to 60 mg QID (home dose is propranolol long acting 120 mg BID). If BP tolerates would restart PO diltiazem as well, at home was on 60 mg QID - 12/27: eliquis resumed, HR 130s. change eliquis to 5 mg BID dosing (age >80 however she is >60 kg and Cr <1.5, does not meet criteria for low dose and was on full dose prior). BP improved today, will restart diltiazem 60 mg Q6H 12/28: HR improved but still fast at times, cont same dilt/inderal for now as bp on low side and monitor on tele. -12/29-: rates good, BPs soft--same meds -01/04-: rvr to 120s at times, pt tolerating and bp low side so cont same rate meds for now -01/07: 3 doses of propranolol held for low BP yesterday, rate 120s, received diltiazem. d/w RN to give propranolol first, monitor BP and give diltiazem if BP stable K 2.9, replete lytes for K >4.0, Mg >2.0 -01/08: bp consistently 90s > 80s systolic, rates rapid--start digoxin (may need load if remains tachy later) -01/09: did not receive propranolol or diltiazem due to low BP yesterday, HR remains 120s on digoxin. start amiodarone gtt -01/10-: rate 90s-120s on amiodarone, propranolol and diltiazem held due to low BP. cont amiodarone -01/12: HR remains fast despite several days of iv amio, thus will dc amio. Cont bb/ccb. Will also start digoxin. -01/13-01/16: rate control acceptable. cont bb/ccb, dig, monitor dig levels -01/17: cont current meds, dig level 2.3 - will decrease dose to 0.125 mg daily - holding eliquis, on heparin gtt s/p chest tube. restart eliquis when able per IR hypotension - ? intravasc contracted (low albumin/low oncotic pressure, on lasix) - deferring pressors at present, given normal mentation Pulmonary embolism, pleural effusions, acute diast CHF, severe hypoalbuminuria: - pulm congestion on CXR after receiving IVF here, was diuresed - echo with dilated RV (normal function), no signific pulm HTN per TR gradient measurable on that study. Pt at risk for PE given: (1) AC had been held here for several days preop/postop, (2) she has new dx of colon malignancy; (3) she is postop and bedbound. - LE venous dopplers no DVT - CTA chest acute RLL PE - on eliquis - betzy pleural effusions on CTA 01/02- had been getting prn iv lasix - CT abd/pelvis 01/05 shows large R pleural effusion increased in size - now on lasix 40 mg IV BID, continue - pleural effusion mgmt per crit care, thoracic surgery, s/p chest tube with continued serosanguinous drainage sbo, colon mass: -s/p surgery, found to have colon ca, onc following
[2019-01-17] MEDS: PANTOPRAZOLE SODIUM 40 MG VIAL IVPUSH SCH (09:30)
[2019-01-17] MEDS: DIGOXIN 0.125 MG TABLET (FP) PO SCH (09:35)
[2019-01-17] MEDS: MAGNESIUM OXIDE 400 MG TABLET (FP) PO SCH ×2 (09:35→22:38)
[2019-01-17] MEDS: POTASSIUM CHLORIDE TABS 20 MEQ TABLET.ER (FP) PO SCH (09:35)
--- NOTE | 2019-01-17 09:57 | PN ---
Physical Exam: SUBJECTIVE: Patient seen and examined in tele icu. OBJECTIVE: hall monitor: nsr 67, 112/43 bp, 2 liters sats 90s. chest tube with sero sang drainage appears to have increased weight loss a/e/b increased temporal wasting discharge planning back to [facility], once chest tube removed. Vital Signs Period Temp Pulse Resp BP Sys/Germain Pulse Ox Last 24 Hr 97.5 F-98.7 F 65-135 20-22 93-123/45-62 98-98 GENERAL: The patient is awake, alert in no acute distress. HEAD: Normal with no signs of trauma. EYES: PERRL, sclera anicteric, conjunctiva clear. ENT: nares patent, moist mucous membranes. NECK: Trachea midline, supple LUNGS: + scattered crackles, with diminished BS at the bases, no accessory muscle use. Right chest tube in situ HEART:nsr, no murmurs appreciated ABDOMEN: Soft, nontender, nondistended, normoactive bowel sounds, no guarding,- surgical stables removed. EXTREMITIES: 2+ pulses, warm, well-perfused, no edema. NEUROLOGICAL: poor memory. Normal speech pattern, PSYCH: Normal mood, normal affect. SKIN: Warm, dry, normal turgor, abd incision well healed Laboratory Results - last 24 hr 01/17/19 01/17/19 01/17/19 05:30 05:30 05:30 WBC 18.2 H RBC 3.40 L Hgb 8.4 L Hct 27.0 L MCV 79.2 L MCH 24.7 L MCHC 31.1 L RDW 19.2 H Plt Count 443 H MPV 7.5 PTT (Actin FS) 53.8 H Sodium 131 L Potassium 5.0 Chloride 93 L Carbon Dioxide 34 H Anion Gap 4 L BUN 12 Creatinine 0.5 L Creat Clearance w eGFR 117.26 Random Glucose 99 Calcium 8.8 Total Bilirubin 0.3 AST 20 ALT 18 Alkaline Phosphatase 68 Total Protein 5.2 L Albumin 1.8 L Digoxin 2.33 H Active Medications Generic Name Dose Route Start Last Admin Trade Name Freq PRN Reason Stop Dose Admin Acetaminophen 650 mg 01/03/19 08:46 01/16/19 11:50 Tylenol - PO 650 mg Q6H PRN Administration PAIN LEVEL 1-5 Digoxin 0.125 mg 01/17/19 09:18 01/17/19 09:35 Lanoxin - PO 0.125 mg DAILY OBDULIO Administration Diltiazem HCl 60 mg 12/29/18 00:00 01/17/19 06:36 Cardizem - PO 60 mg Q6HPO OBDULIO Administration Diltiazem HCl 10 mg 12/28/18 20:38 Cardizem Injection - IVPUSH Q4H PRN TACHYCARDIA Fluticasone Propionate 2 spray 12/29/18 10:00 01/16/19 10:34 Flonase - NS 2 spray DAILY OBDULIO Administration Furosemide 40 mg 01/06/19 06:00 01/17/19 06:36 Lasix Injection - IVPUSH 40 mg BID@0600,1400 OBDULIO Administration Heparin Sodium (Porcine) 1,000 unit 01/11/19 21:16 01/15/19 06:49 Heparin - IVPUSH 1,000 unit PRN PRN Administration Heparin Heparin Sodium (Porcine) 5,000 unit 01/11/19 21:16 Heparin - IVPUSH PRN PRN Heparin Heparin Sodium/Dextrose 25,000 units in 500 mls @ 16 mls/hr 01/11/19 21:30 06:34 Heparin Infusion - IVPB 850 unit/hr TITR OBDULIO 17 mls/hr Administration Protocol 800 UNIT/HR Magnesium Oxide 400 mg 01/03/19 22:00 01/17/19 09:35 Mag-Ox - PO 400 mg BID OBDULIO Administration Mirtazapine 7.5 mg 01/16/19 22:00 01/16/19 22:06 Remeron - PO 7.5 mg HS OBDULIO Administration Ondansetron HCl 4 mg 12/28/18 20:38 Zofran Injection IVPUSH Q6H PRN NAUSEA Pantoprazole Sodium 40 mg 12/29/18 10:00 01/16/19 10:35 Protonix Iv IVPUSH 40 mg DAILY OBDULIO Administration Potassium Chloride 40 meq 01/12/19 10:00 01/17/19 09:35 K-Dur - PO 40 meq DAILY OBDULIO Administration Potassium Phos/Sodium Phos 1 packet 12/28/18 14:00 01/17/19 07:52 Phos-Nak Packet - PO Not Given TID OBDULIO Propranolol HCl 60 mg 12/28/18 22:00 01/17/19 09:34 Inderal - PO 60 mg Q6H OBDULIO Administration Propranolol HCl 1 mg 12/28/18 20:38 Inderal Injection - IVPUSH Q1H PRN TACHYCARDIA ASSESSMENT/PLAN: Patient is an 83 year old female with past medical history of reflux, esophagitis, dementia, hallucinations, ataxia, HTN, benign neoplasm of cerebral meninges, who presents to the emergency department via [facility] due to nausea and vomiting. She was evaluated in the ED and was noted to be with afib with RVR . Patient is a poor historian and confused at baseline. She was mostly recently at [facility] between 12/13/2018 and 12/20/2018 for vomitus with coffee ground emesis. She is s/p EGD which was negative. A colonoscopy was not done secondary to electrolyte imbalance and persistent tachycardia. She was discharged and recommended to follow up with GI outpatient for a colonscopy , however she returned to the ED on the next day for worsening abdominal symptoms. Imaging: Abdominal CT w/o contrast 12/21/18 shows diffuse to moderate marked dilatation of the small bowel including the terminal ileum with significant dilatation of the cecum and proximal ascending colon up to a point of transition seen in the proximal/mid ascending colon where there is suggestion of wall thickening and collapse of the rest of the colon consistent with obstruction. CTA 01/01/19: acute RLL PE, moderate right sided pleural effusion and small to moderate left sided pleural effusion have increased in size. chest xray 01/06/19 with increased right pleural effusion chest cta: 01/05/19: mild dilatation of multiple small bowel loops and mild dilatation of the transverse colon, possible ileus and or partial SBO. development of free fluid is noted. large right pleural effusion. 2.3 cm mild hyperdense left renal cortical structure possibly representing a complex cyst, correlation with sono or MRI suggested. Pulmonary: Pulmonary embolism per CTA. on RLL, acute PE. On eliquis, but has been stopped on 01/05 and placed on heparin drip for chest tube placement. On supplemental oxygen. Large right pleural effusion/shortness of breath at rest On Lasix IV 40mg BID s/p thoracentesis/pleurx catheter to chest tube pulmonary following GI: Acute bowel obstructions seen on Abd CT. on 12/23/18 had exploratory laparotomy, right toribio colectomy with primary ileotransverse stapled anastomosis. She was found to have obstructing ascending colon mass, now found to have colon cancer. Cardiac: Uncontrolled afib with RVR. on propranolol q6, cardizem q q6 Hypertension. controlled. fen tolerating diet. Protonix prophy physical therapy SCDs and CHLOE lazar dnr/dni Visit type - Emergency Visit Emergency Visit: Yes ED Registration Date: 12/22/18 Care time: The patient presented to the Emergency Department on the above date and was hospitalized for further evaluation of their emergent condition. - New Patient This patient is new to me today: No - Critical Care Critical Care patient: No - Discharge Referral Referred to [facility] No
[2019-01-17] MEDS: FLUTICASONE PROP 0.05% 16 GM NASAL SPRAY NS SCH (10:25)
--- NOTE | 2019-01-17 12:46 | PN ---
Progress Note (short form) - Note Progress Note: PULMONARY Denies shortness of breath or chest pain. Still with minimal chest tube output. CT chest done, not read yet but showing loculated right sided effusions with basilar atelectasis or infiltrates. Chest tube in position but surrounding atelectasis. Vital Signs Period Temp Pulse Resp BP Sys/Germani Pulse Ox Last 24 Hr 97.8 F-98.7 F 63-135 20-22 104-123/43-62 96-98 Gen: NAD at rest Heart: RRR Lung: decreased breath sounds at the bases Abd: soft, nontender Ext: no edema CBC, BMP 01/17/19 05:30 01/17/19 05:30 Active Medications Acetaminophen (Tylenol -) 650 mg PO Q6H PRN PRN Reason: PAIN LEVEL 1-5 Last Admin: 01/16/19 11:50 Dose: 650 mg Digoxin (Lanoxin -) 0.125 mg PO DAILY [facility] Last Admin: 01/17/19 09:35 Dose: 0.125 mg Diltiazem HCl (Cardizem -) 60 mg PO Q6HPO [facility] Last Admin: 01/17/19 06:36 Dose: 60 mg Diltiazem HCl (Cardizem Injection -) 10 mg IVPUSH Q4H PRN PRN Reason: TACHYCARDIA Fluticasone Propionate (Flonase -) 2 spray NS DAILY [facility] Last Admin: 01/17/19 10:25 Dose: Not Given Furosemide (Lasix Injection -) 40 mg IVPUSH BID@0600,1400 [facility] Last Admin: 01/17/19 06:36 Dose: 40 mg Heparin Sodium (Porcine) (Heparin -) 1,000 unit IVPUSH PRN PRN PRN Reason: Heparin Last Admin: 01/15/19 06:49 Dose: 1,000 unit Heparin Sodium (Porcine) (Heparin -) 5,000 unit IVPUSH PRN PRN PRN Reason: Heparin Heparin Sodium/Dextrose (Heparin Infusion -) 25,000 units in 500 mls @ 16 mls/ hr IVPB TITR [facility]; Protocol Last Admin: 01/17/19 06:34 Dose: 850 unit/hr, 17 mls/hr Magnesium Oxide (Mag-Ox -) 400 mg PO BID [facility] Last Admin: 01/17/19 09:35 Dose: 400 mg Mirtazapine (Remeron -) 7.5 mg PO HS [facility] Last Admin: 01/16/19 22:06 Dose: 7.5 mg Ondansetron HCl (Zofran Injection) 4 mg IVPUSH Q6H PRN PRN Reason: NAUSEA Pantoprazole Sodium (Protonix Iv) 40 mg IVPUSH DAILY [facility] Last Admin: 01/17/19 09:30 Dose: 40 mg Potassium Chloride (K-Dur -) 40 meq PO DAILY [facility] Last Admin: 01/17/19 09:35 Dose: 40 meq Potassium Phos/Sodium Phos (Phos-Nak Packet -) 1 packet PO TID [facility] Last Admin: 01/17/19 07:52 Dose: Not Given Propranolol HCl (Inderal -) 60 mg PO Q6H [facility] Last Admin: 01/17/19 09:34 Dose: 60 mg Propranolol HCl (Inderal Injection -) 1 mg IVPUSH Q1H PRN PRN Reason: TACHYCARDIA A/P Large Bowel Obstruction/Ascending Colon Mass Newly Diagnosed Colon Ca s/p ex-lap/right hemicolectomy/primary ileotransverse anastamosis Atrial Fibrillation/Flutter with RVR Acute on Chronic Diastolic Heart Failure Acute RLL Pulmonary Embolism HTN GERD Dementia - continue lasix - monitor urine output, creatinine - can d/c chest tube - favor conservative management of loculated effusions with outpt f/u as pt asymptomatic but would have thoracic surgery evaluate - pain control - incentive spirometry - rate control per cardiology - continue anticoagulation - PO as tolerated
--- NOTE | 2019-01-17 13:06 | PN ---
Progress Note (short form) - Note Progress Note: Thoracic Surgery: CT reviewed. Pt seen in past. Recommend TPA to drain. Not operative candidate. If cannot TPA, pull tube and observe.
[2019-01-17] MEDS ORDERED: PT OWN MED DRAWER 7, Y5N ONE (17:03)
[2019-01-17] MEDS: ACETAMINOPHEN 325 MG TABLET (FP) PO PRN (22:38)
[2019-01-17] MEDS: MIRTAZAPINE 15 MG TABLET (FP) PO SCH (22:39)
[2019-01-18] MEDS ORDERED: SODIUM CHLORIDE 250 ML IV STA (02:03)
[2019-01-18] MEDS ORDERED: SODIUM CHLORIDE 100 ML IV STA (02:04)
[2019-01-18] MEDS: dilTIAZem HCL 60 MG TABLET (FP) PO SCH ×4 (02:05→18:52)
[2019-01-18] MEDS: NAPH,MB-DB/K PH,MBDB POWDER PACKET PO SCH ×3 (06:02→22:13)
[2019-01-18] MEDS: FUROSEMIDE 40 MG/4 ML INJECTABLE VIAL IVPUSH SCH ×2 (06:48→14:48)
--- NOTE | 2019-01-18 08:26 | PN ---
Physical Exam: SUBJECTIVE: Patient seen and examined at the bedside. she denies shortness of breath or chest pain. OBJECTIVE: chest tube to be removed today, discharge planning back to [facility]. Vital Signs Period Temp Pulse Resp BP Sys/Germain Pulse Ox Last 24 Hr 97.8 F-98.9 F 63-97 15-22 103-157/48-94 96-100 GENERAL: The patient is awake, alert in no acute distress. HEAD: Normal with no signs of trauma. EYES: PERRL, sclera anicteric, conjunctiva clear. ENT: nares patent, moist mucous membranes. NECK: Trachea midline, supple LUNGS: + scattered crackles, with diminished BS at the bases, no accessory muscle use. Right chest tube in situ with minimal output. HEART:nsr, no murmurs appreciated ABDOMEN: Soft, nontender, nondistended, normoactive bowel sounds, no guarding,- surgical stables removed. EXTREMITIES: 2+ pulses, warm, well-perfused, no edema. NEUROLOGICAL: poor memory. Normal speech pattern, PSYCH: Normal mood, normal affect. SKIN: Warm, dry, normal turgor, abd incision well healed Active Medications Generic Name Dose Route Start Last Admin Trade Name Freq PRN Reason Stop Dose Admin Acetaminophen 650 mg 01/03/19 08:46 01/17/19 22:38 Tylenol - PO 650 mg Q6H PRN Administration PAIN LEVEL 1-5 Digoxin 0.125 mg 01/17/19 09:18 01/17/19 09:35 Lanoxin - PO 0.125 mg DAILY OBDULIO Administration Diltiazem HCl 60 mg 12/29/18 00:00 01/18/19 06:02 Cardizem - PO 60 mg Q6HPO OBDULIO Administration Diltiazem HCl 10 mg 12/28/18 20:38 Cardizem Injection - IVPUSH Q4H PRN TACHYCARDIA Fluticasone Propionate 2 spray 12/29/18 10:00 01/17/19 10:25 Flonase - NS Not Given DAILY OBDULIO Furosemide 40 mg 01/06/19 06:00 01/18/19 06:48 Lasix Injection - IVPUSH 40 mg BID@0600,1400 OBDULIO Administration Heparin Sodium (Porcine) 1,000 unit 01/11/19 21:16 01/15/19 06:49 Heparin - IVPUSH 1,000 unit PRN PRN Administration Heparin Heparin Sodium (Porcine) 5,000 unit 01/11/19 21:16 Heparin - IVPUSH PRN PRN Heparin Heparin Sodium/Dextrose 25,000 units in 500 mls @ 16 mls/hr 01/11/19 21:30 22:36 Heparin Infusion - IVPB Not Given TITR OBDULIO Protocol 800 UNIT/HR Magnesium Oxide 400 mg 01/03/19 22:00 01/17/19 22:38 Mag-Ox - PO 400 mg BID OBDULIO Administration Mirtazapine 7.5 mg 01/16/19 22:00 01/17/19 22:39 Remeron - PO 7.5 mg HS OBDULIO Administration Ondansetron HCl 4 mg 12/28/18 20:38 Zofran Injection IVPUSH Q6H PRN NAUSEA Pantoprazole Sodium 40 mg 12/29/18 10:00 01/17/19 09:30 Protonix Iv IVPUSH 40 mg DAILY OBDULIO Administration Potassium Chloride 40 meq 01/12/19 10:00 01/17/19 09:35 K-Dur - PO 40 meq DAILY OBDULIO Administration Potassium Phos/Sodium Phos 1 packet 12/28/18 14:00 01/18/19 06:02 Phos-Nak Packet - PO 1 packet TID OBDULIO Administration Propranolol HCl 60 mg 12/28/18 22:00 01/18/19 04:46 Inderal - PO 60 mg Q6H OBDULIO Administration Propranolol HCl 1 mg 12/28/18 20:38 Inderal Injection - IVPUSH Q1H PRN TACHYCARDIA ASSESSMENT/PLAN: Patient is an 83 year old female with past medical history of reflux, esophagitis, dementia, hallucinations, ataxia, HTN, benign neoplasm of cerebral meninges, who presents to the emergency department via EMS from senior care due to nausea and vomiting. She was evaluated in the ED and was noted to be with afib with RVR . Patient is a poor historian and confused at baseline. She was mostly recently at [facility] between 12/13/2018 and 12/20/2018 for vomitus with coffee ground emesis. She is s/p EGD which was negative. A colonoscopy was not done secondary to electrolyte imbalance and persistent tachycardia. She was discharged and recommended to follow up with GI outpatient for a colonscopy , however she returned to the ED for worsening abdominal symptoms. Imaging: Abdominal CT w/o contrast 12/21/18 shows diffuse to moderate marked dilatation of the small bowel including the terminal ileum with significant dilatation of the cecum and proximal ascending colon up to a point of transition seen in the proximal/mid ascending colon where there is suggestion of wall thickening and collapse of the rest of the colon consistent with obstruction. CTA 01/01/19: acute RLL PE, moderate right sided pleural effusion and small to moderate left sided pleural effusion have increased in size. chest xray 01/06/19 with increased right pleural effusion chest cta: 01/05/19: mild dilatation of multiple small bowel loops and mild dilatation of the transverse colon, possible ileus and or partial SBO. development of free fluid is noted. large right pleural effusion. 2.3 cm mild hyperdense left renal cortical structure possibly representing a complex cyst, correlation with sono or MRI suggested. Pulmonary: Pulmonary embolism per CTA. on RLL, acute PE. On eliquis, but has been stopped on 01/05 and placed on heparin drip for chest tube placement. On supplemental oxygen. transition to eliquis once chest tube removed. Large right pleural effusion/shortness of breath at rest On Lasix IV 40mg BID. s/p thoracentesis/pleurx catheter to chest tube with minimal output. GI: Acute bowel obstructions seen on Abd CT. on 12/23/18 had exploratory laparotomy, right toribio colectomy with primary ileotransverse stapled anastomosis. She was found to have obstructing ascending colon mass, now found to have colon cancer. Her HCP is not seeking chemotherapy at this time, pursuing comfort measures. Cardiac: Uncontrolled afib with RVR. on propranolol q6, cardizem q q6 Hypertension. controlled. fen tolerating diet. Protonix prophy physical therapy SCDs and CHLOE lazar dnr/dni Visit type - Emergency Visit Emergency Visit: Yes ED Registration Date: 12/22/18 Care time: The patient presented to the Emergency Department on the above date and was hospitalized for further evaluation of their emergent condition. - New Patient This patient is new to me today: No - Critical Care Critical Care patient: No - Discharge Referral Referred to [facility] Med P.C.: No
[2019-01-18] MEDS ORDERED: PT OWN MED DRAWER 7, Y5N ONE ×3 (09:34→22:09)
[2019-01-18 09:38] LABS: BASO % 0.8 % (0-2.0); EOS % 1.2 % (0-4.5); HEMATOCRIT 31.1 % (32.4-45.2); HEMOGLOBIN 9.6 GM/dL (10.7-15.3); LYMPH % 11.4 % (8-40); MCH 24.5 pg (25.7-33.7); MCHC 30.9 g/dl (32.0-36.0); MEAN CELL VOLUME 79.4 fl (80-96); MEAN PLT VOLUME 7.3 fl (7.5-11.1); MONO % 7.2 % (3.8-10.2); NEUT % 79.4 % (42.8-82.8); PLATELET COUNT 479 K/MM3 (134-434); RBC 3.92 M/mm3 (3.60-5.2); RDW 19.7 % (11.6-15.6); WHITE BLOOD COUNT 16.6 K/mm3 (4.0-10.0)
[2019-01-18 09:46] LABS: INR 1.08 (0.83-1.09); PROTHROMBIN TIME (PATIENT) 12.8 SEC (9.7-13.0)
[2019-01-18] MEDS: DIGOXIN 0.125 MG TABLET (FP) PO SCH (09:47)
[2019-01-18 09:49] LABS: ACTIVATED PTT 55.8 SECONDS (25.2-36.5)
[2019-01-18] MEDS: POTASSIUM CHLORIDE TABS 20 MEQ TABLET.ER (FP) PO SCH (09:59)
[2019-01-18] MEDS: FLUTICASONE PROP 0.05% 16 GM NASAL SPRAY NS SCH (10:00)
[2019-01-18] MEDS: MAGNESIUM OXIDE 400 MG TABLET (FP) PO SCH ×2 (10:01→22:13)
[2019-01-18] MEDS: PANTOPRAZOLE SODIUM 40 MG VIAL IVPUSH SCH (10:14)
[2019-01-18 10:16] LABS: ALBUMIN 1.9 g/dl (3.4-5.0); ALK PHOS 73 U/L (45-117); ANION GAP 8 MMOL/L (8-16); BILIRUBIN,TOTAL 0.4 mg/dL (0.2-1); BLOOD UREA NITROGEN 13 mg/dL (7-18); CALCIUM 8.8 mg/dL (8.5-10.1); CHLORIDE 92 mmol/L (98-107); CO2 33 mmol/L (21-32); CREATININE 0.5 mg/dL (0.55-1.3); GLUCOSE,RANDOM 138 mg/dL (74-106); MAGNESIUM 1.9 mg/dL (1.8-2.4); POTASSIUM 4.6 mmol/L (3.5-5.1); SGOT/AST 20 U/L (15-37); SGPT/ALT 19 U/L (13-61); SODIUM 133 mmol/L (136-145); TOT PROT 5.8 g/dl (6.4-8.2)
--- NOTE | 2019-01-18 10:27 | PN ---
Progress Note (short form) - Note Progress Note: s: no cp sob palps dizzy o: Vital Signs Period Temp Pulse Resp BP Sys/Germain Pulse Ox Last 24 Hr 97.8 F-98.5 F 64-97 15-22 103-157/48-94 100-100 nad, no jvd irreg s1s2 no mrg cta bl nl eff awake, alert no jaundice diaphoresis no le e/c/c abd nt nd pos bs Current Medications Generic Name Dose Route Start Last Admin Trade Name Freq PRN Reason Stop Dose Admin Acetaminophen 650 mg 01/03/19 08:46 01/17/19 22:38 Tylenol - PO 650 mg Q6H PRN Administration PAIN LEVEL 1-5 Digoxin 0.125 mg 01/17/19 09:18 01/18/19 09:47 Lanoxin - PO Not Given DAILY OBDULIO Diltiazem HCl 60 mg 12/29/18 00:00 01/18/19 06:02 Cardizem - PO 60 mg Q6HPO OBDULIO Administration Diltiazem HCl 10 mg 12/28/18 20:38 Cardizem Injection - IVPUSH Q4H PRN TACHYCARDIA Fluticasone Propionate 2 spray 12/29/18 10:00 01/18/19 10:00 Flonase - NS 2 spray DAILY OBDULIO Administration Furosemide 40 mg 01/06/19 06:00 01/18/19 06:48 Lasix Injection - IVPUSH 40 mg BID@0600,1400 OBDULIO Administration Heparin Sodium (Porcine) 1,000 unit 01/11/19 21:16 01/15/19 06:49 Heparin - IVPUSH 1,000 unit PRN PRN Administration Heparin Heparin Sodium (Porcine) 5,000 unit 01/11/19 21:16 Heparin - IVPUSH PRN PRN Heparin Heparin Sodium/Dextrose 25,000 units in 500 mls @ 16 mls/hr 01/11/19 21:30 22:36 Heparin Infusion - IVPB Not Given TITR [facility] Protocol 800 UNIT/HR Magnesium Oxide 400 mg 01/03/19 22:00 01/18/19 10:01 Mag-Ox - PO 400 mg BID OBDULIO Administration Mirtazapine 7.5 mg 01/16/19 22:00 01/17/19 22:39 Remeron - PO 7.5 mg HS OBDULIO Administration Ondansetron HCl 4 mg 12/28/18 20:38 Zofran Injection IVPUSH Q6H PRN NAUSEA Pantoprazole Sodium 40 mg 12/29/18 10:00 01/18/19 10:14 Protonix Iv IVPUSH 40 mg DAILY OBDULIO Administration Potassium Chloride 40 meq 01/12/19 10:00 01/18/19 09:59 K-Dur - PO 40 meq DAILY OBDULIO Administration Potassium Phos/Sodium Phos 1 packet 12/28/18 14:00 01/18/19 06:02 Phos-Nak Packet - PO 1 packet TID OBDULIO Administration Propranolol HCl 60 mg 12/28/18 22:00 01/18/19 10:03 Inderal - PO 60 mg Q6H OBDULIO Administration Propranolol HCl 1 mg 12/28/18 20:38 Inderal Injection - IVPUSH Q1H PRN TACHYCARDIA CBC, BMP 01/18/19 09:18 01/18/19 09:18 ecg: aflutter with 2:1 avb, vr 127, no ischemic changes CXR 12/28: slight incr bilat pulm/pleural changes Echo 12/2018: small LV cavity, hyperdynamic. mild-mod dilated RV, hyperdynamic RVSF. mild ERIK. mild-mod MR (eccentric). RVSP 30-35 CTA chest acute RLL PE, mod R and small left pleural effusions tele: AF/flutter, rate controlled a/p: 83 f hx dementia, afib/flutter, gerd, htn, tia, sent from pr for coffee ground emesis. aflutter: - was on diltiazem 60 mg QID and propranolol 120 mg BID at home-->npo postop bowel surgery with tachycardia and hypotensive on levophed-->amio gtt started with persistent tachycardia. hemodynamics improved-->amio d/c'd, prn iv diltiazem ordered - 12/25: H?R 140s, no response to IV diltiazem pushes, SBP dropped to 80s. d/w'd icu team: will start non-chronotropic vasoconstrictor pressor, then initiate low dose PO and IV propranolol trial for HR control. - elirufina held briefly during 12/05 admit with GIB, resumed on discharge with plan for outpt GI scopes. H/H were stable when arrived this time with SBO, eliquis now on hold for surgery - 12/26: HR remains 130s, will increase propranolol to 60 mg QID (home dose is propranolol long acting 120 mg BID). If BP tolerates would restart PO diltiazem as well, at home was on 60 mg QID - 12/27: eliquis resumed, HR 130s. change eliquis to 5 mg BID dosing (age >80 however she is >60 kg and Cr <1.5, does not meet criteria for low dose and was on full dose prior). BP improved today, will restart diltiazem 60 mg Q6H 12/28: HR improved but still fast at times, cont same dilt/inderal for now as bp on low side and monitor on tele. -12/29-: rates good, BPs soft--same meds -01/04-: rvr to 120s at times, pt tolerating and bp low side so cont same rate meds for now -01/07: 3 doses of propranolol held for low BP yesterday, rate 120s, received diltiazem. d/w RN to give propranolol first, monitor BP and give diltiazem if BP stable K 2.9, replete lytes for K >4.0, Mg >2.0 -01/08: bp consistently 90s > 80s systolic, rates rapid--start digoxin (may need load if remains tachy later) -01/09: did not receive propranolol or diltiazem due to low BP yesterday, HR remains 120s on digoxin. start amiodarone gtt -01/10-: rate 90s-120s on amiodarone, propranolol and diltiazem held due to low BP. cont amiodarone -01/12: HR remains fast despite several days of iv amio, thus will dc amio. Cont bb/ccb. Will also start digoxin. -01/13-01/16: rate control acceptable. cont bb/ccb, dig, monitor dig levels -01/17: cont current meds, dig level 2.3 - will decrease dose to 0.125 mg daily -01/18: rate controlled on current meds. - holding eliquis, on heparin gtt s/p chest tube. restart eliquis when able per IR Pulmonary embolism, pleural effusions, acute diast CHF, severe hypoalbuminuria: - pulm congestion on CXR after receiving IVF here, was diuresed - echo with dilated RV (normal function), no signific pulm HTN per TR gradient measurable on that study. Pt at risk for PE given: (1) AC had been held here for several days preop/postop, (2) she has new dx of colon malignancy; (3) she is postop and bedbound. - LE venous dopplers no DVT - CTA chest acute RLL PE - on eliquis - betzy pleural effusions on CTA 01/02- had been getting prn iv lasix - CT abd/pelvis 01/05 shows large R pleural effusion increased in size - now on lasix 40 mg IV BID, continue - pleural effusion mgmt per crit care, thoracic surgery, s/p chest tube with continued serosanguinous drainage sbo, colon mass: -s/p surgery, found to have colon ca, onc following
[2019-01-18] MEDS: HEPARIN INFUSION - 25,000 UNITS/500 ML INFUS.BAG IVPB SCH ×2 (11:23→22:12)
[2019-01-18 11:45] LABS: ANISOCYTOSIS 1+; MACROCYTOSIS 0; PLATELET ESTIMATE NORMAL
--- NOTE | 2019-01-18 14:11 | PN ---
Progress Note (short form) - Note Progress Note: PULMONARY Denies shortness of breath or chest pain. Still with minimal chest tube output. Vital Signs Period Temp Pulse Resp BP Sys/Germain Pulse Ox Last 24 Hr 97.5 F-98.4 F 64-97 15-22 103-120/48-94 100-100 Gen: NAD at rest Heart: RRR Lung: decreased breath sounds at the bases Abd: soft, nontender Ext: no edema CBC, BMP 01/18/19 09:18 01/18/19 09:18 Active Medications Acetaminophen (Tylenol -) 650 mg PO Q6H PRN PRN Reason: PAIN LEVEL 1-5 Last Admin: 01/17/19 22:38 Dose: 650 mg Digoxin (Lanoxin -) 0.125 mg PO DAILY [facility] Last Admin: 01/18/19 09:47 Dose: Not Given Diltiazem HCl (Cardizem -) 60 mg PO Q6HPO [facility] Last Admin: 01/18/19 13:01 Dose: 60 mg Diltiazem HCl (Cardizem Injection -) 10 mg IVPUSH Q4H PRN PRN Reason: TACHYCARDIA Fluticasone Propionate (Flonase -) 2 spray NS DAILY [facility] Last Admin: 01/18/19 10:00 Dose: 2 spray Furosemide (Lasix Injection -) 40 mg IVPUSH BID@0600,1400 [facility] Last Admin: 01/18/19 06:48 Dose: 40 mg Heparin Sodium (Porcine) (Heparin -) 1,000 unit IVPUSH PRN PRN PRN Reason: Heparin Last Admin: 01/15/19 06:49 Dose: 1,000 unit Heparin Sodium (Porcine) (Heparin -) 5,000 unit IVPUSH PRN PRN PRN Reason: Heparin Heparin Sodium/Dextrose (Heparin Infusion -) 25,000 units in 500 mls @ 16 mls/ hr IVPB TITR [facility]; Protocol Last Admin: 01/18/19 11:23 Dose: 850 unit/hr, 17 mls/hr Magnesium Oxide (Mag-Ox -) 400 mg PO BID [facility] Last Admin: 01/18/19 10:01 Dose: 400 mg Mirtazapine (Remeron -) 7.5 mg PO HS [facility] Last Admin: 01/17/19 22:39 Dose: 7.5 mg Ondansetron HCl (Zofran Injection) 4 mg IVPUSH Q6H PRN PRN Reason: NAUSEA Pantoprazole Sodium (Protonix Iv) 40 mg IVPUSH DAILY [facility] Last Admin: 01/18/19 10:14 Dose: 40 mg Potassium Chloride (K-Dur -) 40 meq PO DAILY [facility] Last Admin: 01/18/19 09:59 Dose: 40 meq Potassium Phos/Sodium Phos (Phos-Nak Packet -) 1 packet PO TID [facility] Last Admin: 01/18/19 06:02 Dose: 1 packet Propranolol HCl (Inderal -) 60 mg PO Q6H [facility] Last Admin: 01/18/19 10:03 Dose: 60 mg Propranolol HCl (Inderal Injection -) 1 mg IVPUSH Q1H PRN PRN Reason: TACHYCARDIA A/P Large Bowel Obstruction/Ascending Colon Mass Newly Diagnosed Colon Ca s/p ex-lap/right hemicolectomy/primary ileotransverse anastamosis Atrial Fibrillation/Flutter with RVR Acute on Chronic Diastolic Heart Failure Acute RLL Pulmonary Embolism HTN GERD Dementia - continue lasix - monitor urine output, creatinine - removed chest tube - favor conservative management of loculated effusions with outpt f/u as pt asymptomatic - pain control - incentive spirometry - rate control per cardiology - continue anticoagulation - PO as tolerated - d/c planning
--- NOTE | 2019-01-18 18:29 | PN ---
Progress Note, Physician History of Present Illness: no new issues chest tube removed looks like no further plan for intervention - Current Medication List Current Medications: Active Medications Acetaminophen (Tylenol -) 650 mg PO Q6H PRN PRN Reason: PAIN LEVEL 1-5 Last Admin: 01/17/19 22:38 Dose: 650 mg Digoxin (Lanoxin -) 0.125 mg PO DAILY [facility] Last Admin: 01/18/19 09:47 Dose: Not Given Diltiazem HCl (Cardizem -) 60 mg PO Q6HPO [facility] Last Admin: 01/18/19 13:01 Dose: 60 mg Diltiazem HCl (Cardizem Injection -) 10 mg IVPUSH Q4H PRN PRN Reason: TACHYCARDIA Fluticasone Propionate (Flonase -) 2 spray NS DAILY [facility] Last Admin: 01/18/19 10:00 Dose: 2 spray Furosemide (Lasix Injection -) 40 mg IVPUSH BID@0600,1400 [facility] Last Admin: 01/18/19 14:48 Dose: 40 mg Heparin Sodium (Porcine) (Heparin -) 1,000 unit IVPUSH PRN PRN PRN Reason: Heparin Last Admin: 01/15/19 06:49 Dose: 1,000 unit Heparin Sodium (Porcine) (Heparin -) 5,000 unit IVPUSH PRN PRN PRN Reason: Heparin Heparin Sodium/Dextrose (Heparin Infusion -) 25,000 units in 500 mls @ 16 mls/ hr IVPB TITR [facility]; Protocol Last Admin: 01/18/19 11:23 Dose: 850 unit/hr, 17 mls/hr Magnesium Oxide (Mag-Ox -) 400 mg PO BID [facility] Last Admin: 01/18/19 10:01 Dose: 400 mg Mirtazapine (Remeron -) 7.5 mg PO HS [facility] Last Admin: 01/17/19 22:39 Dose: 7.5 mg Nystatin (Mycostatin Cream -) 1 applic TP BID [facility] Ondansetron HCl (Zofran Injection) 4 mg IVPUSH Q6H PRN PRN Reason: NAUSEA Pantoprazole Sodium (Protonix Iv) 40 mg IVPUSH DAILY [facility] Last Admin: 01/18/19 10:14 Dose: 40 mg Potassium Chloride (K-Dur -) 40 meq PO DAILY [facility] Last Admin: 01/18/19 09:59 Dose: 40 meq Potassium Phos/Sodium Phos (Phos-Nak Packet -) 1 packet PO TID [facility] Last Admin: 01/18/19 14:46 Dose: 1 packet Propranolol HCl (Inderal -) 60 mg PO Q6H [facility] Last Admin: 01/18/19 16:55 Dose: 60 mg Propranolol HCl (Inderal Injection -) 1 mg IVPUSH Q1H PRN PRN Reason: TACHYCARDIA - Objective Vital Signs: Vital Signs Temperature 97.8 F 01/18/19 13:35 Pulse Rate 81 01/18/19 14:49 Respiratory Rate 01/18/19 14:49 Blood Pressure 102/79 01/18/19 14:49 O2 Sat by Pulse Oximetry (%) 97 01/18/19 09:00 Constitutional: Yes: No Distress, Calm Cardiovascular: Yes: S1, S2 Respiratory: Yes: On Nasal O2, Other (decreased air entry on the rt side) Gastrointestinal: Yes: Normal Bowel Sounds, Soft Musculoskeletal: Yes: WNL Extremities: Yes: WNL Neurological: Yes: Alert Psychiatric: Yes: Alert Labs: CBC, BMP 01/18/19 09:18 01/18/19 09:18 INR, PTT INR 1.08 (0.83-1.09) 01/18/19 09:18 Assessment/Plan - Problems (1) Colon obstruction Code(s): K56.609 - UNSP INTESTNL OBST, UNSP TO PARTIAL VERSUS COMPLETE OBST (2) Atrial fibrillation with RVR Code(s): I48.91 - UNSPECIFIED ATRIAL FIBRILLATION (3) Dementia Code(s): F03.90 - UNSPECIFIED DEMENTIA WITHOUT BEHAVIORAL DISTURBANCE (4) Esophagitis Code(s): K20.9 - ESOPHAGITIS, UNSPECIFIED (5) GERD (gastroesophageal reflux disease) Code(s): K21.9 - GASTRO-ESOPHAGEAL REFLUX DISEASE WITHOUT ESOPHAGITIS (6) Hypertension Code(s): I10 - ESSENTIAL (PRIMARY) HYPERTENSION Qualifiers: Hypertension type: essential hypertension Qualified Code(s): I10 - Essential (primary) hypertension leukocytosis pleural effusion pe pleural effusion has increased plan continue current mgmt as per the team await for final cx reports rest as per the team nutrition
[2019-01-18] MEDS: NYSTATIN 100,000 UNIT/GM TOPICAL CREAM 15 GM TUBE TP SCH ×2 (18:53→22:15)
[2019-01-18] MEDS: MIRTAZAPINE 15 MG TABLET (FP) PO SCH (22:13)
[2019-01-19] MEDS: dilTIAZem HCL 60 MG TABLET (FP) PO SCH ×4 (00:07→18:02)
[2019-01-19] MEDS ORDERED: PT OWN MED DRAWER 7, Y5N ONE ×3 (04:39→21:26)
[2019-01-19] MEDS: FUROSEMIDE 40 MG/4 ML INJECTABLE VIAL IVPUSH SCH (06:01)
[2019-01-19] MEDS: NAPH,MB-DB/K PH,MBDB POWDER PACKET PO SCH ×3 (06:01→22:11)
[2019-01-19 06:29] LABS: BASO % 0.4 % (0-2.0); EOS % 1.1 % (0-4.5); HEMATOCRIT 29.6 % (32.4-45.2); HEMOGLOBIN 9.3 GM/dL (10.7-15.3); LYMPH % 10.6 % (8-40); MCHC 31.5 g/dl (32.0-36.0); MEAN CELL VOLUME 79.5 fl (80-96); MEAN PLT VOLUME 7.4 fl (7.5-11.1); MONO % 8.5 % (3.8-10.2); NEUT % 79.4 % (42.8-82.8); PLATELET COUNT 452 K/MM3 (134-434); RBC 3.73 M/mm3 (3.60-5.2); RDW 22.5 % (11.6-15.6); WHITE BLOOD COUNT 17.1 K/mm3 (4.0-10.0)
[2019-01-19 07:02] LABS: ALK PHOS 77 U/L (45-117); BILIRUBIN,TOTAL 0.2 mg/dL (0.2-1); BLOOD UREA NITROGEN 16 mg/dL (7-18); CALCIUM 8.6 mg/dL (8.5-10.1); CHLORIDE 94 mmol/L (98-107); CO2 35 mmol/L (21-32); CREATININE 0.6 mg/dL (0.55-1.3); GLUCOSE,RANDOM 127 mg/dL (74-106); MAGNESIUM 1.8 mg/dL (1.8-2.4); POTASSIUM 4.6 mmol/L (3.5-5.1); SGOT/AST 17 U/L (15-37); SGPT/ALT 18 U/L (13-61); SODIUM 133 mmol/L (136-145); TOT PROT 5.7 g/dl (6.4-8.2)
[2019-01-19 07:19] LABS: ANION GAP 5 MMOL/L (8-16)
--- NOTE | 2019-01-19 09:32 | PN ---
Physical Exam: SUBJECTIVE: Patient seen and examined at the bedside. in no acute distress. OBJECTIVE: chest tube removed yesterday significant weight loss since admission 83kg>57kg stop heparin drip at 10 a.m., restart eliquis 2.5mg bid at 12pm. eliquis at a lower dose based on her age >78 yo and weight <60kg chest xray with right apical persistent pneumothorax. for discharge back to [facility] tomorrow likely Vital Signs Period Temp Pulse Resp BP Sys/Germain Pulse Ox Last 24 Hr 97.5 F-98.5 F 75-119 17-26 100-131/46-97 97-98 GENERAL: The patient is awake, alert in no acute distress. HEAD: Normal with no signs of trauma. EYES: PERRL, sclera anicteric, conjunctiva clear. ENT: nares patent, moist mucous membranes. NECK: Trachea midline, supple LUNGS: + scattered crackles, with diminished BS at the bases, no accessory muscle use. Right chest tube removed on 01/18/2019 HEART:nsr, no murmurs appreciated ABDOMEN: Soft, nontender, nondistended, normoactive bowel sounds, no guarding,- surgical stables removed. EXTREMITIES: 2+ pulses, warm, well-perfused, no edema. NEUROLOGICAL: poor memory. Normal speech pattern, PSYCH: Normal mood, normal affect. SKIN: Warm, dry, normal turgor, abd incision well healed Laboratory Results - last 24 hr 01/18/19 01/18/19 01/18/19 09:18 09:18 09:18 WBC 16.6 H RBC 3.92 Hgb 9.6 L Hct 31.1 L D MCV 79.4 L MCH 24.5 L MCHC 30.9 L RDW 19.7 H Plt Count 479 H MPV 7.3 L Absolute Neuts (auto) 13.2 H Neutrophils % 79.4 Neutrophils % (Manual) 66.0 Band Neutrophils % 2.0 Lymphocytes % 11.4 Lymphocytes % (Manual) 15.0 D Monocytes % 7.2 Monocytes % (Manual) 9 Eosinophils % 1.2 Eosinophils % (Manual) 4.0 D Basophils % 0.8 D Basophils % (Manual) 1.0 D Myelocytes % (Man) 3 H Promyelocytes % (Man) 0 Blast Cells % (Manual) 0 Nucleated RBC % 0 Metamyelocytes 0 D Hypochromia 0 Platelet Estimate Normal Polychromasia 1+ Poikilocytosis 0 Anisocytosis 1+ Microcytosis 1+ Macrocytosis 0 PT with INR 12.80 INR 1.08 PTT (Actin FS) 55.8 H Sodium 133 L Potassium 4.6 Chloride 92 L Carbon Dioxide 33 H Anion Gap 8 BUN 13 Creatinine 0.5 L Creat Clearance w eGFR 117.26 Random Glucose 138 H Calcium 8.8 Magnesium 1.9 Total Bilirubin 0.4 AST 20 ALT 19 Alkaline Phosphatase 73 Total Protein 5.8 L Albumin 1.9 L Digoxin 01/19/19 01/19/19 01/19/19 05:30 05:30 05:30 WBC 17.1 H RBC 3.73 Hgb 9.3 L Hct 29.6 L MCV 79.5 L MCH 25.0 L MCHC 31.5 L RDW 22.5 H Plt Count 452 H MPV 7.4 L Absolute Neuts (auto) 13.6 H Neutrophils % 79.4 Neutrophils % (Manual) Band Neutrophils % Lymphocytes % 10.6 Lymphocytes % (Manual) Monocytes % 8.5 Monocytes % (Manual) Eosinophils % 1.1 Eosinophils % (Manual) Basophils % 0.4 Basophils % (Manual) Myelocytes % (Man) Promyelocytes % (Man) Blast Cells % (Manual) Nucleated RBC % 0 Metamyelocytes Hypochromia Platelet Estimate Polychromasia Poikilocytosis Anisocytosis Microcytosis Macrocytosis PT with INR INR PTT (Actin FS) 40.6 H Sodium 133 L Potassium 4.6 Chloride 94 L Carbon Dioxide 35 H Anion Gap 5 L BUN 16 Creatinine 0.6 Creat Clearance w eGFR 95.01 Random Glucose 127 H Calcium 8.6 Magnesium 1.8 Total Bilirubin 0.2 AST 17 ALT 18 Alkaline Phosphatase 77 Total Protein 5.7 L Albumin 2.0 L Digoxin 1.22 Active Medications Generic Name Dose Route Start Last Admin Trade Name Freq PRN Reason Stop Dose Admin Acetaminophen 650 mg 01/03/19 08:46 01/17/19 22:38 Tylenol - PO 650 mg Q6H PRN Administration PAIN LEVEL 1-5 Digoxin 0.125 mg 01/17/19 09:18 01/18/19 09:47 Lanoxin - PO Not Given DAILY [facility] Diltiazem HCl 60 mg 12/29/18 00:00 01/19/19 06:01 Cardizem - PO 60 mg Q6HPO OBDULIO Administration Diltiazem HCl 10 mg 12/28/18 20:38 Cardizem Injection - IVPUSH Q4H PRN TACHYCARDIA Fluticasone Propionate 2 spray 12/29/18 10:00 01/18/19 10:00 Flonase - NS 2 spray DAILY [facility]BD[facility] Administration Furosemide 40 mg 01/06/19 06:00 01/19/19 06:01 Lasix Injection - IVPUSH 40 mg BID@0600,1400 OBDULIO Administration Heparin Sodium (Porcine) 1,000 unit 01/11/19 21:16 01/15/19 06:49 Heparin - IVPUSH 1,000 unit PRN PRN Administration Heparin Heparin Sodium (Porcine) 5,000 unit 01/11/19 21:16 Heparin - IVPUSH PRN PRN Heparin Heparin Sodium/Dextrose 25,000 units in 500 mls @ 16 mls/hr 01/11/19 21:30 22:12 Heparin Infusion - IVPB Not Given TITR [facility] Protocol 800 UNIT/HR Magnesium Oxide 400 mg 01/03/19 22:00 01/18/19 22:13 Mag-Ox - PO 400 mg BID [facility]BD[facility] Administration Mirtazapine 7.5 mg 01/16/19 22:00 01/18/19 22:13 Remeron - PO 7.5 mg HS OBDULIO Administration Nystatin 1 applic 01/18/19 15:53 01/18/19 22:15 Mycostatin Cream - TP 1 applic BID [facility] Administration Ondansetron HCl 4 mg 12/28/18 20:38 Zofran Injection IVPUSH Q6H PRN NAUSEA Pantoprazole Sodium 40 mg 12/29/18 10:00 01/18/19 10:14 Protonix Iv IVPUSH 40 mg DAILY [facility]BD[facility] Administration Potassium Chloride 40 meq 01/12/19 10:00 01/18/19 09:59 K-Dur - PO 40 meq DAILY [facility] Administration Potassium Phos/Sodium Phos 1 packet 12/28/18 14:00 01/19/19 06:01 Phos-Nak Packet - PO 1 packet TID [facility]BD[facility] Administration Propranolol HCl 60 mg 12/28/18 22:00 01/19/19 04:37 Inderal - PO Not Given Q6H [facility]BD[facility] Propranolol HCl 1 mg 12/28/18 20:38 Inderal Injection - IVPUSH Q1H PRN TACHYCARDIA ASSESSMENT/PLAN: Patient is an 83 year old female with past medical history of reflux, esophagitis, dementia, hallucinations, ataxia, HTN, benign neoplasm of cerebral meninges, who presents to the emergency department via EMS from sn[facility] due to nausea and vomiting. She was evaluated in the ED and was noted to be with afib with RVR . Patient is a poor historian and confused at baseline. She was mostly recently at [facility] between 12/13/2018 and 12/20/2018 for vomitus with coffee ground emesis. She is s/p EGD which was negative. A colonoscopy was not done secondary to electrolyte imbalance and persistent tachycardia. She was discharged and recommended to follow up with GI outpatient for a colonscopy , however she returned to the ED for worsening abdominal symptoms. Pulmonary: Pulmonary embolism per CTA. on RLL, acute PE. stopped heparin drip today, back on eliquis 2.5 mg bid (lower dose of eliquis due to weight loss and age). On supplemental oxygen. Large right pleural effusion/shortness of breath at rest On Lasix 40mg PO BID. s/p thoracentesis/pleurx catheter to chest tube with minimal output. chest tube removed 01/18/2019. GI: Acute bowel obstructions seen on Abd CT. on 12/23/18 had exploratory laparotomy, right toribio colectomy with primary ileotransverse stapled anastomosis. She was found to have obstructing ascending colon mass, now found to have colon cancer. Her HCP is not seeking chemotherapy at this time, pursuing comfort measures. Cardiac: Uncontrolled afib with RVR. on propranolol q6, cardizem q q6 Hypertension. controlled. fen tolerating diet. Protonix prophy physical therapy SCDs and CHLOE lazar dnr/dni Visit type - Emergency Visit Emergency Visit: Yes ED Registration Date: 12/22/18 Care time: The patient presented to the Emergency Department on the above date and was hospitalized for further evaluation of their emergent condition. - New Patient This patient is new to me today: No - Critical Care Critical Care patient: No - Discharge Referral Referred to [facility] Med [facility].: No
[2019-01-19 09:49] LABS: ANISOCYTOSIS 1+; OVALOCYTE 1+; PLATELET ESTIMATE NORMAL; TARGET CELLS 1+
[2019-01-19] MEDS: FLUTICASONE PROP 0.05% 16 GM NASAL SPRAY NS SCH (10:26)
[2019-01-19] MEDS: POTASSIUM CHLORIDE TABS 20 MEQ TABLET.ER (FP) PO SCH (10:26)
[2019-01-19] MEDS: PANTOPRAZOLE SODIUM 40 MG VIAL IVPUSH SCH (10:27)
[2019-01-19] MEDS: DIGOXIN 0.125 MG TABLET (FP) PO SCH (10:27)
[2019-01-19] MEDS: MAGNESIUM OXIDE 400 MG TABLET (FP) PO SCH ×2 (10:27→22:15)
--- NOTE | 2019-01-19 10:32 | PN ---
Progress Note (short form) - Note Progress Note: s: no cp sob palps dizzy o: Vital Signs Period Temp Pulse Resp BP Sys/Germain Pulse Ox Last 24 Hr 97.8 F-98.5 F 75-119 17-26 100-131/46-97 97-98 nad, no jvd irreg s1s2 no mrg cta bl nl eff awake, alert no jaundice diaphoresis no le e/c/c abd nt nd pos bs Current Medications Generic Name Dose Route Start Last Admin Trade Name Freq PRN Reason Stop Dose Admin Acetaminophen 650 mg 01/03/19 08:46 01/17/19 22:38 Tylenol - PO 650 mg Q6H PRN Administration PAIN LEVEL 1-5 Apixaban 2.5 mg 01/19/19 12:00 Eliquis - PO BID OBDULIO Digoxin 0.125 mg 01/17/19 09:18 01/19/19 10:27 Lanoxin - PO 0.125 mg DAILY [facility] Administration Diltiazem HCl 60 mg 12/29/18 00:00 01/19/19 06:01 Cardizem - PO 01/19/19 23:00 60 mg Q6HPO OBDULIO Administration Diltiazem HCl 10 mg 12/28/18 20:38 Cardizem Injection - IVPUSH Q4H PRN TACHYCARDIA Diltiazem HCl 240 mg 01/20/19 10:00 Cardizem Cd - PO DAILY [facility] Fluticasone Propionate 2 spray 12/29/18 10:00 01/19/19 10:26 Flonase - NS 2 spray DAILY [facility] Administration Furosemide 40 mg 01/06/19 06:00 01/19/19 06:01 Lasix Injection - IVPUSH 01/19/19 23:00 40 mg BID@0600,1400 OBDULIO Administration Furosemide 40 mg 01/20/19 06:00 Lasix - PO BID@0600,1400 OBD[facility] Magnesium Oxide 400 mg 01/03/19 22:00 01/19/19 10:27 Mag-Ox - PO 400 mg BID OBD[facility]IO Administration Mirtazapine 7.5 mg 01/16/19 22:00 01/18/19 22:13 Remeron - PO 7.5 mg HS OBDULIO Administration Nystatin 1 applic 01/18/19 15:53 01/18/19 22:15 Mycostatin Cream - TP 1 applic BID OBDULIO Administration Ondansetron HCl 4 mg 12/28/18 20:38 Zofran Injection IVPUSH Q6H PRN NAUSEA Pantoprazole Sodium 40 mg 12/29/18 10:00 01/19/19 10:27 Protonix Iv IVPUSH 40 mg DAILY OBDULIO Administration Potassium Chloride 40 meq 01/12/19 10:00 01/19/19 10:26 K-Dur - PO 40 meq DAILY OBD[facility]IO Administration Potassium Phos/Sodium Phos 1 packet 12/28/18 14:00 01/19/19 06:01 Phos-Nak Packet - PO 1 packet TID OBDULIO Administration Propranolol HCl 60 mg 12/28/18 22:00 01/19/19 10:16 Inderal - PO 01/19/19 23:00 Not Given Q6H [facility] Propranolol HCl 1 mg 12/28/18 20:38 Inderal Injection - IVPUSH Q1H PRN TACHYCARDIA Propranolol HCl 120 mg 01/20/19 10:00 Inderal La - PO BID OBDULIO CBC, BMP 01/19/19 05:30 01/19/19 05:30 ecg: aflutter with 2:1 avb, vr 127, no ischemic changes Echo 12/2018: small LV cavity, hyperdynamic. mild-mod dilated RV, hyperdynamic RVSF. mild ERIK. mild-mod MR (eccentric). RVSP 30-35 CTA chest acute RLL PE, mod R and small left pleural effusions tele: AF/flutter, rate controlled a/p: 83 f hx dementia, afib/flutter, gerd, htn, tia, sent from [place] for coffee ground emesis. aflutter: - was on diltiazem 60 mg QID and propranolol 120 mg BID at home-->npo postop bowel surgery with tachycardia and hypotensive on levophed-->amio gtt started with persistent tachycardia. hemodynamics improved-->amio d/c'd, prn iv diltiazem ordered - 12/25: H?R 140s, no response to IV diltiazem pushes, SBP dropped to 80s. d/w'd icu team: will start non-chronotropic vasoconstrictor pressor, then initiate low dose PO and IV propranolol trial for HR control. - eliquis held briefly during 12/05 admit with GIB, resumed on discharge with plan for outpt GI scopes. H/H were stable when arrived this time with SBO, eliquis now on hold for surgery - 12/26: HR remains 130s, will increase propranolol to 60 mg QID (home dose is propranolol long acting 120 mg BID). If BP tolerates would restart PO diltiazem as well, at home was on 60 mg QID - 12/27: eliquis resumed, HR 130s. change eliquis to 5 mg BID dosing (age >80 however she is >60 kg and Cr <1.5, does not meet criteria for low dose and was on full dose prior). BP improved today, will restart diltiazem 60 mg Q6H 12/28: HR improved but still fast at times, cont same dilt/inderal for now as bp on low side and monitor on tele. -12/29-: rates good, BPs soft--same meds -01/04-: rvr to 120s at times, pt tolerating and bp low side so cont same rate meds for now -01/07: 3 doses of propranolol held for low BP yesterday, rate 120s, received diltiazem. d/w RN to give propranolol first, monitor BP and give diltiazem if BP stable K 2.9, replete lytes for K >4.0, Mg >2.0 -01/08: bp consistently 90s > 80s systolic, rates rapid--start digoxin (may need load if remains tachy later) -01/09: did not receive propranolol or diltiazem due to low BP yesterday, HR remains 120s on digoxin. start amiodarone gtt -01/10-: rate 90s-120s on amiodarone, propranolol and diltiazem held due to low BP. cont amiodarone -01/12: HR remains fast despite several days of iv amio, thus will dc amio. Cont bb/ccb. Will also start digoxin. -01/13-01/16: rate control acceptable. cont bb/ccb, dig, monitor dig levels -01/17: cont current meds, dig level 2.3 - will decrease dose to 0.125 mg daily -01/19: rate controlled on current meds, will change to long acting for easier dosing. cont ac with eliquis. Pulmonary embolism, pleural effusions, acute diast CHF, severe hypoalbuminuria: - pulm congestion on CXR after receiving IVF here, was diuresed - echo with dilated RV (normal function), no signific pulm HTN per TR gradient measurable on that study. Pt at risk for PE given: (1) AC had been held here for several days preop/postop, (2) she has new dx of colon malignancy; (3) she is postop and bedbound. - LE venous dopplers no DVT - CTA chest acute RLL PE - on eliquis - betzy pleural effusions on CTA 01/02- had been getting prn iv lasix - CT abd/pelvis 01/05 shows large R pleural effusion increased in size - pleural effusion mgmt per crit care, thoracic surgery, s/p chest tube with continued serosanguinous drainage-->chest tube out now. will change to po lasix for maintenance. sbo, colon mass: -s/p surgery, found to have colon ca, onc following
[2019-01-19] MEDS: APIXABAN 2.5 MG TABLET PO SCH ×2 (12:16→22:09)
--- NOTE | 2019-01-19 12:40 | PN ---
Progress Note (short form) - Note Progress Note: Resting in NAD. No acute events overnight. Denies shortness of breath or chest pain. CXR: No gross change in small Right apical PTX Intake & Output 01/16/19 01/17/19 01/18/19 01/19/19 23:59 23:59 23:59 23:59 Intake Total 650 1284 354 151 Output Total 0 Balance 650 1284 354 151 Weight 121 lb 1 oz 126 lb 1.6 oz Last Vital Signs Temp Pulse Resp BP Pulse Ox 97.9 F 94 H 22 H 110/66 98 01/19/19 12:00 01/19/19 12:00 01/19/19 12:00 01/19/19 12:00 01/19/19 10:00 Active Medications Acetaminophen (Tylenol -) 650 mg PO Q6H PRN PRN Reason: PAIN LEVEL 1-5 Last Admin: 01/17/19 22:38 Dose: 650 mg Apixaban (Eliquis -) 2.5 mg PO BID [facility] Last Admin: 01/19/19 12:16 Dose: 2.5 mg Digoxin (Lanoxin -) 0.125 mg PO DAILY [facility] Last Admin: 01/19/19 10:27 Dose: 0.125 mg Diltiazem HCl (Cardizem -) 60 mg PO Q6HPO [facility] Stop: 01/19/19 23:00 Last Admin: 01/19/19 12:12 Dose: Not Given Diltiazem HCl (Cardizem Injection -) 10 mg IVPUSH Q4H PRN PRN Reason: TACHYCARDIA Diltiazem HCl (Cardizem Cd -) 240 mg PO DAILY [facility] Fluticasone Propionate (Flonase -) 2 spray NS DAILY [facility] Last Admin: 01/19/19 10:26 Dose: 2 spray Furosemide (Lasix Injection -) 40 mg IVPUSH BID@0600,1400 [facility] Stop: 01/19/19 23:00 Last Admin: 01/19/19 06:01 Dose: 40 mg Furosemide (Lasix -) 40 mg PO BID@0600,1400 [facility] Magnesium Oxide (Mag-Ox -) 400 mg PO BID [facility] Last Admin: 01/19/19 10:27 Dose: 400 mg Mirtazapine (Remeron -) 7.5 mg PO HS [facility] Last Admin: 01/18/19 22:13 Dose: 7.5 mg Nystatin (Mycostatin Cream -) 1 applic TP BID [facility] Last Admin: 01/18/19 22:15 Dose: 1 applic Ondansetron HCl (Zofran Injection) 4 mg IVPUSH Q6H PRN PRN Reason: NAUSEA Pantoprazole Sodium (Protonix Iv) 40 mg IVPUSH DAILY [facility] Last Admin: 01/19/19 10:27 Dose: 40 mg Potassium Chloride (K-Dur -) 40 meq PO DAILY [facility] Last Admin: 01/19/19 10:26 Dose: 40 meq Potassium Phos/Sodium Phos (Phos-Nak Packet -) 1 packet PO TID [facility] Last Admin: 01/19/19 06:01 Dose: 1 packet Propranolol HCl (Inderal -) 60 mg PO Q6H [facility] Stop: 01/19/19 23:00 Last Admin: 01/19/19 10:16 Dose: Not Given Propranolol HCl (Inderal Injection -) 1 mg IVPUSH Q1H PRN PRN Reason: TACHYCARDIA Propranolol HCl (Inderal La -) 120 mg PO BID [facility] Gen: NAD at rest Heart: S1S2 Lung: decreased breath sounds at the bases Abd: soft, nontender Ext: no edema Laboratory Results - last 24 hr 01/19/19 01/19/19 01/19/19 05:30 05:30 05:30 WBC 17.1 H RBC 3.73 Hgb 9.3 L Hct 29.6 L MCV 79.5 L MCH 25.0 L MCHC 31.5 L RDW 22.5 H Plt Count 452 H MPV 7.4 L Absolute Neuts (auto) 13.6 H Neutrophils % 79.4 Neutrophils % (Manual) 81.8 Band Neutrophils % 0.0 Lymphocytes % 10.6 Lymphocytes % (Manual) 6.1 L D Monocytes % 8.5 Monocytes % (Manual) 9 Eosinophils % 1.1 Eosinophils % (Manual) 1.0 Basophils % 0.4 Basophils % (Manual) 0.0 Myelocytes % (Man) 0 D Promyelocytes % (Man) 0 Blast Cells % (Manual) 0 Nucleated RBC % 0 Metamyelocytes 2 D Hypochromia 1+ Platelet Estimate Normal Polychromasia 1+ Poikilocytosis 1+ Anisocytosis 1+ Microcytosis 1+ Target Cells 1+ Ovalocytes 1+ PTT (Actin FS) 40.6 H Sodium 133 L Potassium 4.6 Chloride 94 L Carbon Dioxide 35 H Anion Gap 5 L BUN 16 Creatinine 0.6 Creat Clearance w eGFR 95.01 Random Glucose 127 H Calcium 8.6 Magnesium 1.8 Total Bilirubin 0.2 AST 17 ALT 18 Alkaline Phosphatase 77 Total Protein 5.7 L Albumin 2.0 L Digoxin 1.22 A/P Large Bowel Obstruction/Ascending Colon Mass Newly Diagnosed Colon CA S/P Ex-lap/right hemicolectomy/primary ileotransverse anastamosis Atrial Fibrillation/Flutter with RVR Acute RLL Pulmonary Embolism Right Pleural effusion: Pleural studies are pending HTN GERD Dementia Small Right Apical PTX - Incentive Spirometry - No indication for intervention of the small apical PTX - Rate control per Cardiology - AC - PO as tolerated - No Pulmonary contraindication for D/C planning Dr Monroe
[2019-01-19] MEDS: NYSTATIN 100,000 UNIT/GM TOPICAL CREAM 15 GM TUBE TP SCH ×2 (13:41→22:16)
--- NOTE | 2019-01-19 15:17 | PN ---
Progress Note, Physician History of Present Illness: Resting in NAD. No acute events overnight. Denies shortness of breath or chest pain. CXR: No gross change in small Right apical PTX all studies pending urine positive - Current Medication List Current Medications: Active Medications Acetaminophen (Tylenol -) 650 mg PO Q6H PRN PRN Reason: PAIN LEVEL 1-5 Last Admin: 01/17/19 22:38 Dose: 650 mg Apixaban (Eliquis -) 2.5 mg PO BID [facility] Last Admin: 01/19/19 12:16 Dose: 2.5 mg Digoxin (Lanoxin -) 0.125 mg PO DAILY [facility] Last Admin: 01/19/19 10:27 Dose: 0.125 mg Diltiazem HCl (Cardizem -) 60 mg PO Q6HPO [facility] Stop: 01/19/19 23:00 Last Admin: 01/19/19 12:12 Dose: Not Given Diltiazem HCl (Cardizem Injection -) 10 mg IVPUSH Q4H PRN PRN Reason: TACHYCARDIA Diltiazem HCl (Cardizem Cd -) 240 mg PO DAILY [facility] Fluticasone Propionate (Flonase -) 2 spray NS DAILY [facility] Last Admin: 01/19/19 10:26 Dose: 2 spray Furosemide (Lasix -) 40 mg PO BID@0600,1400 [facility] Magnesium Oxide (Mag-Ox -) 400 mg PO BID [facility] Last Admin: 01/19/19 10:27 Dose: 400 mg Mirtazapine (Remeron -) 7.5 mg PO HS [facility] Last Admin: 01/18/19 22:13 Dose: 7.5 mg Nystatin (Mycostatin Cream -) 1 applic TP BID [facility] Last Admin: 01/19/19 13:41 Dose: 1 applic Ondansetron HCl (Zofran Injection) 4 mg IVPUSH Q6H PRN PRN Reason: NAUSEA Pantoprazole Sodium (Protonix Iv) 40 mg IVPUSH DAILY [facility] Last Admin: 01/19/19 10:27 Dose: 40 mg Potassium Chloride (K-Dur -) 40 meq PO DAILY [facility] Last Admin: 01/19/19 10:26 Dose: 40 meq Potassium Phos/Sodium Phos (Phos-Nak Packet -) 1 packet PO TID [facility] Last Admin: 01/19/19 14:19 Dose: Not Given Propranolol HCl (Inderal -) 60 mg PO Q6H [facility] Stop: 01/19/19 23:00 Last Admin: 01/19/19 10:16 Dose: Not Given Propranolol HCl (Inderal Injection -) 1 mg IVPUSH Q1H PRN PRN Reason: TACHYCARDIA Propranolol HCl (Inderal La -) 120 mg PO BID [facility]BD[facility]IO - Objective Vital Signs: Vital Signs Temperature 98.5 F 01/19/19 14:00 Pulse Rate 102 H 01/19/19 14:00 Respiratory Rate 22 H 01/19/19 14:00 Blood Pressure 117/51 L 01/19/19 14:00 O2 Sat by Pulse Oximetry (%) 98 01/19/19 10:00 Constitutional: Yes: No Distress, Calm Cardiovascular: Yes: S1, S2 Respiratory: Yes: On Nasal O2, Other (poor entry in rt side) Gastrointestinal: Yes: Normal Bowel Sounds, Soft Musculoskeletal: Yes: WNL Extremities: Yes: WNL Neurological: Yes: Alert, Other Labs: CBC, BMP 01/19/19 05:30 01/19/19 05:30 INR, PTT INR 1.08 (0.83-1.09) 01/18/19 09:18 Assessment/Plan - Problems (1) Colon obstruction Code(s): K56.609 - UNSP INTESTNL OBST, UNSP TO PARTIAL VERSUS COMPLETE OBST (2) Atrial fibrillation with RVR Code(s): I48.91 - UNSPECIFIED ATRIAL FIBRILLATION (3) Dementia Code(s): F03.90 - UNSPECIFIED DEMENTIA WITHOUT BEHAVIORAL DISTURBANCE (4) Esophagitis Code(s): K20.9 - ESOPHAGITIS, UNSPECIFIED (5) GERD (gastroesophageal reflux disease) Code(s): K21.9 - GASTRO-ESOPHAGEAL REFLUX DISEASE WITHOUT ESOPHAGITIS (6) Hypertension Code(s): I10 - ESSENTIAL (PRIMARY) HYPERTENSION Qualifiers: Hypertension type: essential hypertension Qualified Code(s): I10 - Essential (primary) hypertension leukocytosis pleural effusion pe pleural effusion has increased plan continue current mgmt as per the team await for final cx reports no treatment for uti rest continue current mgmt final plan from thoracic surgery
[2019-01-19] MEDS: MIRTAZAPINE 15 MG TABLET (FP) PO SCH (22:15)
[2019-01-20] MEDS: FUROSEMIDE 40 MG TABLET (FP) PO SCH ×2 (06:42→13:33)
[2019-01-20] MEDS: NAPH,MB-DB/K PH,MBDB POWDER PACKET PO SCH ×2 (06:42→13:33)
[2019-01-20] MEDS ORDERED: PT OWN MED DRAWER 7, Y5N ONE (09:06)
[2019-01-20] MEDS: APIXABAN 2.5 MG TABLET PO SCH ×2 (09:10→23:40)
[2019-01-20] MEDS: DIGOXIN 0.125 MG TABLET (FP) PO SCH (09:12)
[2019-01-20] MEDS: POTASSIUM CHLORIDE TABS 20 MEQ TABLET.ER (FP) PO SCH (09:12)
[2019-01-20] MEDS: MAGNESIUM OXIDE 400 MG TABLET (FP) PO SCH ×2 (09:12→23:37)
[2019-01-20] MEDS: PANTOPRAZOLE SODIUM 40 MG VIAL IVPUSH SCH (09:13)
--- NOTE | 2019-01-20 10:03 | PN ---
Physical Exam: SUBJECTIVE: Patient seen and examined at the bedside. in no acute distress. 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 pt denies any shortness of breath or chest pain. Vital Signs Period Temp Pulse Resp BP Sys/Germain Pulse Ox Last 24 Hr 97.9 F-99.0 F 75-128 19-23 94-121/50-68 98-98 GENERAL: The patient is awake, alert in no acute distress. HEAD: Normal with no signs of trauma. EYES: PERRL, sclera anicteric, conjunctiva clear. ENT: nares patent, moist mucous membranes. NECK: Trachea midline, supple LUNGS: diminished BS at the bases, no accessory muscle use. Right chest tube removed on 01/18/2019 HEART:nsr, no murmurs appreciated ABDOMEN: Soft, nontender, nondistended, normoactive bowel sounds, no guarding,- surgical stables removed. EXTREMITIES: 2+ pulses, warm, well-perfused, no edema. NEUROLOGICAL: poor memory. Normal speech pattern, PSYCH: Normal mood, normal affect. SKIN: Warm, dry, normal turgor, abd incision well healed Laboratory Results - last 24 hr 01/19/19 01/20/19 05:30 05:30 Neutrophils % (Manual) 81.8 Band Neutrophils % 0.0 Lymphocytes % (Manual) 6.1 L D Monocytes % (Manual) 9 Eosinophils % (Manual) 1.0 Basophils % (Manual) 0.0 Myelocytes % (Man) 0 D Promyelocytes % (Man) 0 Blast Cells % (Manual) 0 Metamyelocytes 2 D Hypochromia 1+ Platelet Estimate Normal Polychromasia 1+ Poikilocytosis 1+ Anisocytosis 1+ Microcytosis 1+ Target Cells 1+ Ovalocytes 1+ Digoxin 1.67 Active Medications Generic Name Dose Route Start Last Admin Trade Name Freq PRN Reason Stop Dose Admin Acetaminophen 650 mg 01/03/19 08:46 01/17/19 22:38 Tylenol - PO 650 mg Q6H PRN Administration PAIN LEVEL 1-5 Apixaban 2.5 mg 01/19/19 12:00 01/20/19 09:10 Eliquis - PO 2.5 mg BID OBDULIO Administration Digoxin 0.125 mg 01/17/19 09:18 01/20/19 09:12 Lanoxin - PO 0.125 mg DAILY OBDULIO Administration Diltiazem HCl 10 mg 12/28/18 20:38 Cardizem Injection - IVPUSH Q4H PRN TACHYCARDIA Diltiazem HCl 240 mg 01/20/19 10:00 01/20/19 09:10 Cardizem Cd - PO 240 mg DAILY OBDULIO Administration Fluticasone Propionate 2 spray 12/29/18 10:00 01/19/19 10:26 Flonase - NS 2 spray DAILY OBDULIO Administration Furosemide 40 mg 01/20/19 06:00 01/20/19 06:42 Lasix - PO 40 mg BID@0600,1400 OBDULIO Administration Magnesium Oxide 400 mg 01/03/19 22:00 01/20/19 09:12 Mag-Ox - PO 400 mg BID OBDULIO Administration Mirtazapine 7.5 mg 01/16/19 22:00 01/19/19 22:15 Remeron - PO 7.5 mg HS OBDULIO Administration Nystatin 1 applic 01/18/19 15:53 01/19/19 22:16 Mycostatin Cream - TP 1 applic BID OBDULIO Administration Ondansetron HCl 4 mg 12/28/18 20:38 Zofran Injection IVPUSH Q6H PRN NAUSEA Pantoprazole Sodium 40 mg 12/29/18 10:00 01/20/19 09:13 Protonix Iv IVPUSH 40 mg DAILY OBDULIO Administration Potassium Chloride 40 meq 01/12/19 10:00 01/20/19 09:12 K-Dur - PO 40 meq DAILY OBDULIO Administration Potassium Phos/Sodium Phos 1 packet 12/28/18 14:00 01/20/19 06:42 Phos-Nak Packet - PO Not Given TID OBDULIO Propranolol HCl 1 mg 12/28/18 20:38 Inderal Injection - IVPUSH Q1H PRN TACHYCARDIA Propranolol HCl 120 mg 01/20/19 10:00 01/20/19 09:15 Inderal La - PO 120 mg BID OBDULIO Administration ASSESSMENT/PLAN: Patient is an 83 year old female with past medical history of reflux, esophagitis, dementia, hallucinations, ataxia, HTN, benign neoplasm of cerebral meninges, who presents to the emergency department via EMS from [facility] due to nausea and vomiting. She was evaluated in the ED and was noted to be with afib with RVR . Patient is a poor historian and confused at baseline. She was mostly recently at [facility] between 12/13/2018 and 12/20/2018 for vomitus with coffee ground emesis. She is s/p EGD which was negative. A colonoscopy was not done secondary to electrolyte imbalance and persistent tachycardia. She was discharged and recommended to follow up with GI outpatient for a colonscopy , however she returned to the ED for worsening abdominal symptoms. Pulmonary: Pulmonary embolism per CTA. on RLL, acute PE. stopped heparin drip 01/19/19 back on eliquis 2.5 mg bid (lower dose of eliquis due to weight loss and age). On supplemental oxygen. Large right pleural effusion/shortness of breath at rest On Lasix 40mg PO BID. s/p thoracentesis/pleurx catheter to chest tube with minimal output. chest tube removed 01/18/2019. GI: Acute bowel obstructions seen on Abd CT. on 12/23/18 had exploratory laparotomy, right toribio colectomy with primary ileotransverse stapled anastomosis. She was found to have obstructing ascending colon mass, now found to have colon cancer. Her HCP is not seeking chemotherapy at this time, pursuing comfort measures. UTI urine culture + kleb ID following. Abnormal weight loss significant weight loss since admission (in the setting of abdominal surgery, npo status, chest tube and prolonged hospital stay) significant weight loss since admission 83kg>57kg On supplement tid weight dose medications dietary following, notes reviewed will hold off on adding an appetite stimulant other than remeron. once she returns to [facility], she can be followed there. will add multivitamin, prosource and vitamin b12, ensure compact, ensure with each meal Cardiac: Uncontrolled afib with RVR. rate controlled but fast again today. on propanolol 120mg bid, digoxin 0.125mg , cardizem 240mg Hypertension. controlled. fen tolerating diet.-chopped, with supplements Protonix prophy physical therapy SCDs and CHLOE lazar DNR/DNI Visit type - Emergency Visit Emergency Visit: Yes ED Registration Date: 12/22/18 Care time: The patient presented to the Emergency Department on the above date and was hospitalized for further evaluation of their emergent condition. - New Patient This patient is new to me today: No - Critical Care Critical Care patient: No - Discharge Referral Referred to [facility] No
--- NOTE | 2019-01-20 10:10 | PN ---
Progress Note (short form) - Note Progress Note: s: no cp sob palps dizzy o: Vital Signs Period Temp Pulse Resp BP Sys/Germain Pulse Ox Last 24 Hr 97.9 F-99.0 F 75-128 19-23 94-121/50-68 98-98 nad, no jvd irreg s1s2 no mrg cta bl nl eff awake, alert no jaundice diaphoresis no le e/c/c abd nt nd pos bs Current Medications Generic Name Dose Route Start Last Admin Trade Name Freq PRN Reason Stop Dose Admin Acetaminophen 650 mg 01/03/19 08:46 01/17/19 22:38 Tylenol - PO 650 mg Q6H PRN Administration PAIN LEVEL 1-5 Apixaban 2.5 mg 01/19/19 12:00 01/20/19 09:10 Eliquis - PO 2.5 mg BID OBDULIO Administration Digoxin 0.125 mg 01/17/19 09:18 01/20/19 09:12 Lanoxin - PO 0.125 mg DAILY OBDULIO Administration Diltiazem HCl 10 mg 12/28/18 20:38 Cardizem Injection - IVPUSH Q4H PRN TACHYCARDIA Diltiazem HCl 240 mg 01/20/19 10:00 01/20/19 09:10 Cardizem Cd - PO 240 mg DAILY OBDULIO Administration Fluticasone Propionate 2 spray 12/29/18 10:00 01/19/19 10:26 Flonase - NS 2 spray DAILY OBDULIO Administration Furosemide 40 mg 01/20/19 06:00 01/20/19 06:42 Lasix - PO 40 mg BID@0600,1400 OBDULIO Administration Magnesium Oxide 400 mg 01/03/19 22:00 01/20/19 09:12 Mag-Ox - PO 400 mg BID OBDULIO Administration Mirtazapine 7.5 mg 01/16/19 22:00 01/19/19 22:15 Remeron - PO 7.5 mg HS OBDULIO Administration Nystatin 1 applic 01/18/19 15:53 01/19/19 22:16 Mycostatin Cream - TP 1 applic BID OBDULIO Administration Ondansetron HCl 4 mg 12/28/18 20:38 Zofran Injection IVPUSH Q6H PRN NAUSEA Pantoprazole Sodium 40 mg 12/29/18 10:00 01/20/19 09:13 Protonix Iv IVPUSH 40 mg DAILY OBDULIO Administration Potassium Chloride 40 meq 01/12/19 10:00 01/20/19 09:12 K-Dur - PO 40 meq DAILY OBDULIO Administration Potassium Phos/Sodium Phos 1 packet 12/28/18 14:00 01/20/19 06:42 Phos-Nak Packet - PO Not Given TID OBDULIO Propranolol HCl 1 mg 12/28/18 20:38 Inderal Injection - IVPUSH Q1H PRN TACHYCARDIA Propranolol HCl 120 mg 01/20/19 10:00 01/20/19 09:15 Inderal La - PO 120 mg BID OBDULIO Administration CBC, BMP 01/19/19 05:30 01/19/19 05:30 ecg: aflutter with 2:1 avb, vr 127, no ischemic changes Echo 12/2018: small LV cavity, hyperdynamic. mild-mod dilated RV, hyperdynamic RVSF. mild ERIK. mild-mod MR (eccentric). RVSP 30-35 CTA chest acute RLL PE, mod R and small left pleural effusions tele: AF/flutter,120s a/p: 83 f hx dementia, afib/flutter, gerd, htn, tia, sent from [place] for coffee ground emesis. aflutter: - was on diltiazem 60 mg QID and propranolol 120 mg BID at home-->npo postop bowel surgery with tachycardia and hypotensive on levophed-->amio gtt started with persistent tachycardia. hemodynamics improved-->amio d/c'd, prn iv diltiazem ordered - 12/25: H?R 140s, no response to IV diltiazem pushes, SBP dropped to 80s. d/w'd icu team: will start non-chronotropic vasoconstrictor pressor, then initiate low dose PO and IV propranolol trial for HR control. - eliquis held briefly during 12/05 admit with GIB, resumed on discharge with plan for outpt GI scopes. H/H were stable when arrived this time with SBO, eliquis now on hold for surgery - 12/26: HR remains 130s, will increase propranolol to 60 mg QID (home dose is propranolol long acting 120 mg BID). If BP tolerates would restart PO diltiazem as well, at home was on 60 mg QID - 12/27: eliquis resumed, HR 130s. change eliquis to 5 mg BID dosing (age >80 however she is >60 kg and Cr <1.5, does not meet criteria for low dose and was on full dose prior). BP improved today, will restart diltiazem 60 mg Q6H 12/28: HR improved but still fast at times, cont same dilt/inderal for now as bp on low side and monitor on tele. -12/29-: rates good, BPs soft--same meds -01/04-: rvr to 120s at times, pt tolerating and bp low side so cont same rate meds for now -01/07: 3 doses of propranolol held for low BP yesterday, rate 120s, received diltiazem. d/w RN to give propranolol first, monitor BP and give diltiazem if BP stable K 2.9, replete lytes for K >4.0, Mg >2.0 -01/08: bp consistently 90s > 80s systolic, rates rapid--start digoxin (may need load if remains tachy later) -01/09: did not receive propranolol or diltiazem due to low BP yesterday, HR remains 120s on digoxin. start amiodarone gtt -01/10-: rate 90s-120s on amiodarone, propranolol and diltiazem held due to low BP. cont amiodarone -01/12: HR remains fast despite several days of iv amio, thus will dc amio. Cont bb/ccb. Will also start digoxin. -01/13-01/16: rate control acceptable. cont bb/ccb, dig, monitor dig levels -01/17: cont current meds, dig level 2.3 - will decrease dose to 0.125 mg daily -01/19: rate controlled on current meds, will change to long acting for easier dosing. cont ac with eliquis. -01/20: rate fast this AM, monitor after getting AM meds. cont ac with eliquis. Pulmonary embolism, pleural effusions, acute diast CHF, severe hypoalbuminuria: - pulm congestion on CXR after receiving IVF here, was diuresed - echo with dilated RV (normal function), no signific pulm HTN per TR gradient measurable on that study. Pt at risk for PE given: (1) AC had been held here for several days preop/postop, (2) she has new dx of colon malignancy; (3) she is postop and bedbound. - LE venous dopplers no DVT - CTA chest acute RLL PE - on eliquis - betzy pleural effusions on CTA 01/02- had been getting prn iv lasix - CT abd/pelvis 01/05 shows large R pleural effusion increased in size - pleural effusion mgmt per crit care, thoracic surgery, s/p chest tube with continued serosanguinous drainage-->chest tube out now. changed to po lasix for maintenance. sbo, colon mass: -s/p surgery, found to have colon ca, onc following
[2019-01-20] MEDS: NYSTATIN 100,000 UNIT/GM TOPICAL CREAM 15 GM TUBE TP SCH ×2 (11:26→23:38)
[2019-01-20] MEDS: FLUTICASONE PROP 0.05% 16 GM NASAL SPRAY NS SCH (11:26)
[2019-01-20] MEDS: MULTIVITAMINS (DAILY MVI) TABLET (FP) PO SCH (12:34)
[2019-01-20] MEDS: CYANOCOBALAMIN (VITAMIN B-12) 100 MCG TABLET PO SCH (12:34)
[2019-01-20 13:02] LABS: BASO % 0.6 % (0-2.0); EOS % 0.9 % (0-4.5); HEMATOCRIT 31.8 % (32.4-45.2); LYMPH % 10.6 % (8-40); MCH 25.5 pg (25.7-33.7); MCHC 31.4 g/dl (32.0-36.0); MEAN CELL VOLUME 81.1 fl (80-96); MEAN PLT VOLUME 7.2 fl (7.5-11.1); MONO % 8.3 % (3.8-10.2); NEUT % 79.6 % (42.8-82.8); PLATELET COUNT 438 K/MM3 (134-434); RBC 3.93 M/mm3 (3.60-5.2); RDW 23.4 % (11.6-15.6); WHITE BLOOD COUNT 16.9 K/mm3 (4.0-10.0)
[2019-01-20 13:31] LABS: ALBUMIN 2.2 g/dl (3.4-5.0); ALK PHOS 71 U/L (45-117); ANION GAP 6 MMOL/L (8-16); BILIRUBIN,TOTAL 0.3 mg/dL (0.2-1); BLOOD UREA NITROGEN 18 mg/dL (7-18); CALCIUM 8.9 mg/dL (8.5-10.1); CHLORIDE 98 mmol/L (98-107); CO2 32 mmol/L (21-32); CREATININE 0.7 mg/dL (0.55-1.3); GLUCOSE,RANDOM 123 mg/dL (74-106); POTASSIUM 5.1 mmol/L (3.5-5.1); SGOT/AST 38 U/L (15-37); SGPT/ALT 27 U/L (13-61); SODIUM 136 mmol/L (136-145); TOT PROT 5.9 g/dl (6.4-8.2)
[2019-01-20 14:05] LABS: ANISOCYTOSIS 1+; MACROCYTOSIS 1+; PLATELET ESTIMATE NORMAL
--- NOTE | 2019-01-20 15:27 | PN ---
Progress Note, Physician History of Present Illness: patient stable no further intervention to be done calm no distress - Current Medication List Current Medications: Active Medications Acetaminophen (Tylenol -) 650 mg PO Q6H PRN PRN Reason: PAIN LEVEL 1-5 Last Admin: 01/17/19 22:38 Dose: 650 mg Amino Acids (Prosource No Carb Liquid Pkt) 30 ml PO BID@0800,1730 [facility] Apixaban (Eliquis -) 2.5 mg PO BID [facility] Last Admin: 01/20/19 09:10 Dose: 2.5 mg Cyanocobalamin (Vitamin B12 -) 100 mcg PO DAILY [facility] Last Admin: 01/20/19 12:34 Dose: 100 mcg Digoxin (Lanoxin -) 0.125 mg PO DAILY [facility] Last Admin: 01/20/19 09:12 Dose: 0.125 mg Diltiazem HCl (Cardizem Injection -) 10 mg IVPUSH Q4H PRN PRN Reason: TACHYCARDIA Diltiazem HCl (Cardizem Cd -) 240 mg PO DAILY [facility] Last Admin: 01/20/19 09:10 Dose: 240 mg Fluticasone Propionate (Flonase -) 2 spray NS DAILY [facility] Last Admin: 01/20/19 11:26 Dose: 2 spray Furosemide (Lasix -) 40 mg PO BID@0600,1400 [facility] Last Admin: 01/20/19 13:33 Dose: 40 mg Magnesium Oxide (Mag-Ox -) 400 mg PO BID [facility] Last Admin: 01/20/19 09:12 Dose: 400 mg Mirtazapine (Remeron -) 7.5 mg PO HS [facility] Last Admin: 01/19/19 22:15 Dose: 7.5 mg Multivitamins/Minerals/Vitamin C (Tab-A-Vit -) 1 tab PO DAILY [facility] Last Admin: 01/20/19 12:34 Dose: 1 tab Nystatin (Mycostatin Cream -) 1 applic TP BID [facility] Last Admin: 01/20/19 11:26 Dose: 1 applic Ondansetron HCl (Zofran Injection) 4 mg IVPUSH Q6H PRN PRN Reason: NAUSEA Pantoprazole Sodium (Protonix Iv) 40 mg IVPUSH DAILY [facility] Last Admin: 01/20/19 09:13 Dose: 40 mg Potassium Chloride (K-Dur -) 40 meq PO DAILY [facility] Last Admin: 01/20/19 09:12 Dose: 40 meq Potassium Phos/Sodium Phos (Phos-Nak Packet -) 1 packet PO TID [facility] Last Admin: 01/20/19 13:33 Dose: 1 packet Propranolol HCl (Inderal Injection -) 1 mg IVPUSH Q1H PRN PRN Reason: TACHYCARDIA Propranolol HCl (Inderal La -) 120 mg PO BID [facility] Last Admin: 01/20/19 09:15 Dose: 120 mg - Objective Vital Signs: Vital Signs Temperature 98.3 F 01/20/19 10:41 Pulse Rate 99 H 01/20/19 10:41 Respiratory Rate 24 H 01/20/19 10:41 Blood Pressure 112/65 01/20/19 10:41 O2 Sat by Pulse Oximetry (%) 98 01/20/19 08:14 Constitutional: Yes: No Distress, Calm Cardiovascular: Yes: Tachycardia, S1, S2 Respiratory: Yes: Regular, Other (poor entry in the rt part of the lung) Gastrointestinal: Yes: Normal Bowel Sounds, Soft Musculoskeletal: Yes: WNL Extremities: Yes: WNL Neurological: Yes: Alert, Other (dementia) Psychiatric: Yes: Alert Labs: CBC, BMP 01/20/19 12:36 01/20/19 12:36 INR, PTT INR 1.08 (0.83-1.09) 01/18/19 09:18 Assessment/Plan - Problems (1) Colon obstruction Code(s): K56.609 - UNSP INTESTNL OBST, UNSP TO PARTIAL VERSUS COMPLETE OBST (2) Atrial fibrillation with RVR Code(s): I48.91 - UNSPECIFIED ATRIAL FIBRILLATION (3) Dementia Code(s): F03.90 - UNSPECIFIED DEMENTIA WITHOUT BEHAVIORAL DISTURBANCE (4) Esophagitis Code(s): K20.9 - ESOPHAGITIS, UNSPECIFIED (5) GERD (gastroesophageal reflux disease) Code(s): K21.9 - GASTRO-ESOPHAGEAL REFLUX DISEASE WITHOUT ESOPHAGITIS (6) Hypertension Code(s): I10 - ESSENTIAL (PRIMARY) HYPERTENSION Qualifiers: Hypertension type: essential hypertension Qualified Code(s): I10 - Essential (primary) hypertension leukocytosis pleural effusion pe pleural effusion has increased plan continue current mgmt as per the team no intervention being done continue to monitor
[2019-01-20] MEDS: AMINO ACIDS/PROTEIN HYDROLYS 30 ML LIQUID.PKT PO SCH (17:54)
[2019-01-20] MEDS: ACETAMINOPHEN 325 MG TABLET (FP) PO PRN (23:36)
[2019-01-20] MEDS: MIRTAZAPINE 15 MG TABLET (FP) PO SCH (23:43)
[2019-01-21] MEDS: NAPH,MB-DB/K PH,MBDB POWDER PACKET PO SCH ×3 (00:13→13:21)
[2019-01-21 06:02] LABS: BASO % 0.5 % (0-2.0); EOS % 1.4 % (0-4.5); HEMATOCRIT 31.7 % (32.4-45.2); HEMOGLOBIN 9.9 GM/dL (10.7-15.3); LYMPH % 12.4 % (8-40); MCH 25.1 pg (25.7-33.7); MCHC 31.1 g/dl (32.0-36.0); MEAN CELL VOLUME 80.7 fl (80-96); MEAN PLT VOLUME 7.4 fl (7.5-11.1); NEUT % 77.7 % (42.8-82.8); PLATELET COUNT 442 K/MM3 (134-434); RBC 3.93 M/mm3 (3.60-5.2); RDW 23.7 % (11.6-15.6); WHITE BLOOD COUNT 16.2 K/mm3 (4.0-10.0)
[2019-01-21 06:36] LABS: ALBUMIN 2.2 g/dl (3.4-5.0); ALK PHOS 73 U/L (45-117); ANION GAP 6 MMOL/L (8-16); BILIRUBIN,TOTAL 0.8 mg/dL (0.2-1); BLOOD UREA NITROGEN 21 mg/dL (7-18); CALCIUM 9.1 mg/dL (8.5-10.1); CHLORIDE 100 mmol/L (98-107); CO2 32 mmol/L (21-32); CREATININE 0.8 mg/dL (0.55-1.3); GLUCOSE,RANDOM 118 mg/dL (74-106); POTASSIUM 4.6 mmol/L (3.5-5.1); SGOT/AST 43 U/L (15-37); SGPT/ALT 35 U/L (13-61); SODIUM 138 mmol/L (136-145)
[2019-01-21] MEDS: FUROSEMIDE 40 MG TABLET (FP) PO SCH ×2 (07:23→13:21)
[2019-01-21] MEDS: FLUTICASONE PROP 0.05% 16 GM NASAL SPRAY NS SCH (09:38)
[2019-01-21] MEDS: AMINO ACIDS/PROTEIN HYDROLYS 30 ML LIQUID.PKT PO SCH (09:38)
[2019-01-21] MEDS: APIXABAN 2.5 MG TABLET PO SCH (09:38)
[2019-01-21] MEDS: PANTOPRAZOLE SODIUM 40 MG VIAL IVPUSH SCH (09:39)
[2019-01-21] MEDS: POTASSIUM CHLORIDE TABS 20 MEQ TABLET.ER (FP) PO SCH (09:39)
[2019-01-21] MEDS: MAGNESIUM OXIDE 400 MG TABLET (FP) PO SCH (09:39)
[2019-01-21] MEDS: DIGOXIN 0.125 MG TABLET (FP) PO SCH (09:39)
[2019-01-21] MEDS: NYSTATIN 100,000 UNIT/GM TOPICAL CREAM 15 GM TUBE TP SCH (09:39)
[2019-01-21] MEDS: CYANOCOBALAMIN (VITAMIN B-12) 100 MCG TABLET PO SCH (09:40)
[2019-01-21] MEDS: MULTIVITAMINS (DAILY MVI) TABLET (FP) PO SCH (09:40)
[2019-01-21] MEDS: ACETAMINOPHEN 325 MG TABLET (FP) PO PRN (09:40)
--- NOTE | 2019-01-21 10:40 | PN ---
Progress Note (short form) - Note Progress Note: s: no cp sob palps dizzy o: Vital Signs Period Temp Pulse Resp BP Sys/Germain Pulse Ox Last 24 Hr 98.3 F-98.4 F 62-99 18-24 89-129/50-65 100-100 nad, no jvd irreg s1s2 no mrg cta bl nl eff awake, alert no jaundice diaphoresis no le e/c/c abd nt nd pos bs Current Medications Generic Name Dose Route Start Last Admin Trade Name Freq PRN Reason Stop Dose Admin Acetaminophen 650 mg 01/03/19 08:46 01/21/19 09:40 Tylenol - PO 650 mg Q6H PRN Administration PAIN LEVEL 1-5 Amino Acids 30 ml 01/20/19 17:30 01/21/19 09:38 Prosource No Carb Liquid Pkt PO 30 ml BID@0800,1730 OBDULIO Administration Apixaban 2.5 mg 01/19/19 12:00 01/21/19 09:38 Eliquis - PO 2.5 mg BID OBDULIO Administration Cyanocobalamin 100 mcg 01/20/19 12:30 01/21/19 09:40 Vitamin B12 - PO 100 mcg DAILY OBDULIO Administration Digoxin 0.125 mg 01/17/19 09:18 01/21/19 09:39 Lanoxin - PO 0.125 mg DAILY OBDULIO Administration Diltiazem HCl 10 mg 12/28/18 20:38 Cardizem Injection - IVPUSH Q4H PRN TACHYCARDIA Diltiazem HCl 240 mg 01/20/19 10:00 01/21/19 09:38 Cardizem Cd - PO 240 mg DAILY OBDULIO Administration Fluticasone Propionate 2 spray 12/29/18 10:00 01/21/19 09:38 Flonase - NS 2 spray DAILY OBDULIO Administration Furosemide 40 mg 01/20/19 06:00 01/21/19 07:23 Lasix - PO 40 mg BID@0600,1400 OBDULIO Administration Magnesium Oxide 400 mg 01/03/19 22:00 01/21/19 09:39 Mag-Ox - PO 400 mg BID OBDULIO Administration Mirtazapine 7.5 mg 01/16/19 22:00 01/20/19 23:43 Remeron - PO 7.5 mg HS OBDULIO Administration Multivitamins/Minerals/Vitamin C 1 tab 01/20/19 12:30 01/21/19 09:40 Tab-A-Vit - PO 1 tab DAILY OBDULIO Administration Nystatin 1 applic 01/18/19 15:53 01/21/19 09:39 Mycostatin Cream - TP 1 applic BID OBDULIO Administration Ondansetron HCl 4 mg 12/28/18 20:38 Zofran Injection IVPUSH Q6H PRN NAUSEA Pantoprazole Sodium 40 mg 12/29/18 10:00 01/21/19 09:39 Protonix Iv IVPUSH 40 mg DAILY OBDULIO Administration Potassium Chloride 40 meq 01/12/19 10:00 01/21/19 09:39 K-Dur - PO 40 meq DAILY OBDULIO Administration Potassium Phos/Sodium Phos 1 packet 12/28/18 14:00 01/21/19 07:23 Phos-Nak Packet - PO 1 packet TID OBDULIO Administration Propranolol HCl 1 mg 12/28/18 20:38 Inderal Injection - IVPUSH Q1H PRN TACHYCARDIA Propranolol HCl 120 mg 01/20/19 10:00 01/20/19 23:42 Inderal La - PO 120 mg BID OBDULIO Administration CBC, BMP 01/21/19 05:30 01/21/19 05:30 ecg: aflutter with 2:1 avb, vr 127, no ischemic changes Echo 12/2018: small LV cavity, hyperdynamic. mild-mod dilated RV, hyperdynamic RVSF. mild ERIK. mild-mod MR (eccentric). RVSP 30-35 CTA chest acute RLL PE, mod R and small left pleural effusions tele: AF/flutter,rate ok a/p: 83 f hx dementia, afib/flutter, gerd, htn, tia, sent [place] for coffee ground emesis. aflutter: - was on diltiazem 60 mg QID and propranolol 120 mg BID at home-->npo postop bowel surgery with tachycardia and hypotensive on levophed-->amio gtt started with persistent tachycardia. hemodynamics improved-->amio d/c'd, prn iv diltiazem ordered - 12/25: H?R 140s, no response to IV diltiazem pushes, SBP dropped to 80s. d/w'd icu team: will start non-chronotropic vasoconstrictor pressor, then initiate low dose PO and IV propranolol trial for HR control. - jasis held briefly during 12/05 admit with GIB, resumed on discharge with plan for outpt GI scopes. H/H were stable when arrived this time with SBO, eliquis now on hold for surgery - 12/26: HR remains 130s, will increase propranolol to 60 mg QID (home dose is propranolol long acting 120 mg BID). If BP tolerates would restart PO diltiazem as well, at home was on 60 mg QID - 12/27: eliquis resumed, HR 130s. change eliquis to 5 mg BID dosing (age >80 however she is >60 kg and Cr <1.5, does not meet criteria for low dose and was on full dose prior). BP improved today, will restart diltiazem 60 mg Q6H 12/28: HR improved but still fast at times, cont same dilt/inderal for now as bp on low side and monitor on tele. -12/29-: rates good, BPs soft--same meds -01/04-: rvr to 120s at times, pt tolerating and bp low side so cont same rate meds for now -01/07: 3 doses of propranolol held for low BP yesterday, rate 120s, received diltiazem. d/w RN to give propranolol first, monitor BP and give diltiazem if BP stable K 2.9, replete lytes for K >4.0, Mg >2.0 -01/08: bp consistently 90s > 80s systolic, rates rapid--start digoxin (may need load if remains tachy later) -01/09: did not receive propranolol or diltiazem due to low BP yesterday, HR remains 120s on digoxin. start amiodarone gtt -01/10-: rate 90s-120s on amiodarone, propranolol and diltiazem held due to low BP. cont amiodarone -01/12: HR remains fast despite several days of iv amio, thus will dc amio. Cont bb/ccb. Will also start digoxin. -01/13-01/16: rate control acceptable. cont bb/ccb, dig, monitor dig levels -01/17: cont current meds, dig level 2.3 - will decrease dose to 0.125 mg daily -01/19: rate controlled on current meds, will change to long acting for easier dosing. cont ac with eliquis. -01/20: rate fast this AM, monitor after getting AM meds. cont ac with eliquis. -01/21: rate controlled on current meds, cont ac Pulmonary embolism, pleural effusions, acute diast CHF, severe hypoalbuminuria: - pulm congestion on CXR after receiving IVF here, was diuresed - echo with dilated RV (normal function), no signific pulm HTN per TR gradient measurable on that study. Pt at risk for PE given: (1) AC had been held here for several days preop/postop, (2) she has new dx of colon malignancy; (3) she is postop and bedbound. - LE venous dopplers no DVT - CTA chest acute RLL PE - on eliquis - betzy pleural effusions on CTA 01/02- had been getting prn iv lasix - CT abd/pelvis 01/05 shows large R pleural effusion increased in size - pleural effusion mgmt per crit care, thoracic surgery, s/p chest tube with continued serosanguinous drainage-->chest tube out now. changed to po lasix for maintenance. sbo, colon mass: -s/p surgery, found to have colon ca, onc following cardiac esteban stable
[2019-01-21 11:18] LABS: ANISOCYTOSIS 1+; MACROCYTOSIS 1+; OVALOCYTE 1+; PLATELET ESTIMATE NORMAL; TEAR DROP CELLS 1+
[2019-01-21] MEDS ORDERED: PT OWN MED DRAWER 7, Y5N ONE (11:20)
[2019-01-21 12:43] VITALS: TEMP 97.6
[2019-01-21 13:24] VITALS: BP 112/56; PULSE 78
--- NOTE | 2019-01-21 13:35 | DS ---
Physical Exam: SUBJECTIVE: Patient seen and examined at the bedside. awake, alert, forgetful. in no acute distress. OBJECTIVE: continue supplemental oxygen Vital Signs Period Temp Pulse Resp BP Sys/Germain Pulse Ox Last 24 Hr 97.6 F-98.4 F 62-92 18-23 89-129/50-64 100-100 PHYSICAL EXAM GENERAL: The patient is awake, alert in no acute distress. forgetful HEAD: Normal with no signs of trauma. EYES: PERRL, sclera anicteric, conjunctiva clear. ENT: nares patent, moist mucous membranes. NECK: Trachea midline, supple LUNGS: diminished BS at the bases, no accessory muscle use. Right chest tube removed on 01/18/2019-dressing intact HEART:nsr, no murmurs appreciated ABDOMEN: Soft, nontender, nondistended, normoactive bowel sounds, no guarding,- surgical stables removed. EXTREMITIES: 2+ pulses, warm, well-perfused, no edema. NEUROLOGICAL: poor memory. Normal speech pattern, PSYCH: Normal mood, normal affect. SKIN: excoriated skin in inner thighs and buttocks. on nystatin LABS Laboratory Results - last 24 hr 01/20/19 01/21/19 01/21/19 12:36 05:30 05:30 WBC 16.2 H RBC 3.93 Hgb 9.9 L Hct 31.7 L MCV 80.7 MCH 25.1 L MCHC 31.1 L RDW 23.7 H Plt Count 442 H MPV 7.4 L Absolute Neuts (auto) 12.6 H Neutrophils % 77.7 Neutrophils % (Manual) 79.8 77.2 Band Neutrophils % 0.0 0.0 Lymphocytes % 12.4 Lymphocytes % (Manual) 7.1 L 14.8 D Monocytes % 8.0 Monocytes % (Manual) 9 4 Eosinophils % 1.4 Eosinophils % (Manual) 1.0 3.0 D Basophils % 0.5 Basophils % (Manual) 1.0 D 0.0 Myelocytes % (Man) 1 D 0 D Promyelocytes % (Man) 0 0 Blast Cells % (Manual) 0 0 Nucleated RBC % 0 Metamyelocytes 0 D 0 Hypochromia 1+ 1+ Platelet Estimate Normal Normal Polychromasia 1+ 1+ Poikilocytosis 0 0 Basophilic Stippling 1+ Anisocytosis 1+ 1+ Microcytosis 1+ 1+ Macrocytosis 1+ 1+ Tear Drop Cells 1+ Ovalocytes 1+ Stomatocytes 1+ Sodium 138 Potassium 4.6 Chloride 100 Carbon Dioxide 32 Anion Gap 6 L BUN 21 H Creatinine 0.8 Creat Clearance w eGFR 68.17 Random Glucose 118 H Calcium 9.1 Magnesium 2.0 Total Bilirubin 0.8 AST 43 H ALT 35 Alkaline Phosphatase 73 Total Protein 6.0 L Albumin 2.2 L Digoxin 1.47 HOSPITAL COURSE: Date of Admission:12/22/18 Date of Discharge: 01/21/19 Patient is an 83 year old female with past medical history of reflux, esophagitis, dementia, hallucinations, ataxia, HTN, benign neoplasm of cerebral meninges, who [facility] the emergency department [facility] due to nausea and vomiting. She was evaluated in the ED and was noted to be with afib with RVR . Patient is a poor historian and confused at baseline. She was mostly recently at [facility] between 12/13/2018 and 12/20/2018 for vomitus with coffee ground emesis. She is s/p EGD which was negative. A colonoscopy was not done secondary to electrolyte imbalance and persistent tachycardia. She was discharged and recommended to follow up with GI outpatient for a colonscopy , however she returned to the ED for worsening abdominal symptoms. Hospital course by problem list: Pulmonary: Pulmonary embolism per CTA. on RLL, acute PE. stopped heparin drip 01/19/19 back on eliquis 2.5 mg bid (lower dose of eliquis due to weight loss and age). On supplemental oxygen. Large right pleural effusion/shortness of breath at rest On Lasix 40mg PO BID. s/p thoracentesis/pleurx catheter to chest tube with minimal output. chest tube removed 01/18/2019. GI: Acute bowel obstructions seen on Abd CT. on 12/23/18 had exploratory laparotomy, right toribio colectomy with primary ileotransverse stapled anastomosis. She was found to have obstructing ascending colon mass, now found to have colon cancer. Her HCP is not seeking chemotherapy at this time, pursuing comfort measures. UTI urine culture + kleb treated, no further antibiotics. Abnormal weight loss significant weight loss since admission (in the setting of abdominal surgery, npo status, chest tube and prolonged hospital stay) significant weight loss since admission 83kg>57kg On supplements with meals. weight dose medications. On Remeron once she returns to [facility], she can be followed by eligibility and occupancy interviewer there. continue multivitamin, prosource and vitamin b12, ensure compact, ensure with each meal Cardiac: Uncontrolled afib with RVR. Rate controlled on propanolol 120mg bid, digoxin 0.125mg, cardizem 240mg Hypertension. controlled. For discharge back to [facility] today. HCP is seeking patient to not have treatment of her colon cancer, no chemotherapy. The goal is comfort. Minutes to complete discharge: 60 Discharge Summary Reason For Visit: ATRIAL FIBRILLATION WITH RAPID VENTRICULAR RESPONS Current Active Problems Anemia (Acute) Atrial fibrillation with RVR (Acute) Colon cancer (Acute) Colon obstruction (Acute) Hypoalbuminemia (Acute) Hypokalemia (Acute) Hypomagnesemia (Acute) Hyponatremia (Acute) Large bowel obstruction (Acute) Leukocytosis (leucocytosis) (Acute) Pleural effusion (Acute) Pulmonary embolism (Acute) Small bowel obstruction (Acute) Tachycardia (Acute) Condition: Guarded - Instructions Diet, Activity, Other Instructions: Postoperative instructions: You had a right hemicolectomy on 12/22/[address] Javier Navarro of [facility]. Activity: Resume your usual activities gradually, but no heavy exertion or lifting more than 10-15 pounds for 4-6 weeks. Remove dressings 48 hours after surgery, if they are not already off. You may shower daily starting then, just pat the incision areas dry. No bath or swimming until skin incisions have healed. Branden should not need to be recovered with any dressings, unless you have been told otherwise. Eat lightly at first, but advance to your usual diet as tolerated. Pain: For pain, you may use and alternate Tylenol (acetaminophen) 1-2 pills and/ or ibuprofen 200 mg (1-3 pills) every 6 hours each as needed; this means that you can take one OR the other at 3-hour intervals. If you are prescribed a Tylenol/narcotic combination for severe pain, use it instead of plain Tylenol as needed and switch back when your pain starts decreasing. Do not take more than 4000 mg of acetaminophen in a day. Take medications as prescribed or indicated on the labeling. Follow-up: Call Dr. Navarro' office at [phone] to make your postop appointment (Tuesday in approximately 2 weeks after surgery as advised). Clinic is held in the Diagnostic [facility] on the first floor of [facility]. Call the office if you have: * increasing pain not responsive to pain medication * fever of 101F or higher * vomiting * unusual or increasing bleeding or drainage from wounds * increasing redness or swelling at wound sites * inability to urinate Also, see your primary medical doctor within 1-2 weeks.Please return to the emergency department with any new or worsening symptoms or concerns. Please follow up with your social studies teacher and primary care physician within 72 hours. DISCHARGE INSTRUCTIONS: Mrs Peguero has had a prolonged hospital stay at [facility] She will be sent back to [facility] today with follow up with her primary care doctor. Pulmonary: Pulmonary embolism seen on CTA. She is back on the Eliquis but at a LOWER dose. Now on Eliquis 2.5mg TWICE per day. She will need supplemental oxygen at 2 liters and Duoneb treatments as needed. She developed a large right pleural effusion and shortness of breath. She has a chest tube placed on her right pleural space and seen by the commercial driver team. Her chest tube was removed on 01/18/2019. Continue Lasix 40mg PO BID. GI: Acute bowel obstructions seen on Abd CT. On 12/23/18 Mrs Peguero had exploratory laparotomy, right toribio colectomy with primary ileotransverse stapled anastomosis. She was found to have obstructing ascending colon mass, now found to have colon cancer. Her HCP is not seeking chemotherapy at this time, pursuing comfort measures. Comfort: Before re-hospitalization, please speak to the Health Care Proxy (Ludy Cruz and Shantell Cruz) about patient goals of care. They are seeking comfort at this time. Consider a palliative care referral at [facility]. She is a DNR/DNI. UTI urine culture + kleb. Has completed antibiotics during hospital stay. No fevers. She was evaluated by the ID specialist during her stay. Abnormal weight loss significant weight loss since admission (in the setting of abdominal surgery, NPO status, chest tube and prolonged hospital stay) significant weight loss since admission 83kg>57kg On supplements. Please weight dose all medications Please have a eligibility and occupancy interviewer see patient at [facility] to monitor her weights. She is on Remeron for appetite stimulation. On multivitamin, prosource and vitamin b12, ensure compact, ensure with each meal Cardiac: Uncontrolled afib with RVR. on propanolol 120mg bid, digoxin 0.125mg, cardizem Thank you for allowing us to care for you. DELORIS Perez [facility] @ [facility] [phone] Referrals: Philip Santos MD [Staff Physician] - (please call for an appointment) Javier Navarro MD [Staff Physician] - (please call for an appointment) Fatimah Henson MD [Primary Care Provider] - Disposition: [facility] - Home Medications Comprehensive Discharge Medication List: Ambulatory Orders Donepezil HCl [Aricept] 10 mg PO HS 07/23/15 Fluticasone Prop 0.05% Nasal [Flonase -] 2 spray NS DAILY #1 bottle 07/30/15 Ferrous Gluconate [Iron] 240 mg PO DAILY 12/13/18 Mirtazapine [Remeron -] 15 mg PO HS 12/13/18 Propranolol HCl [Inderal LA] 120 mg PO BID 12/13/18 Sennosides/Docusate Sodium [Senokot-S Tablet] 2 each PO HS 12/13/18 propRANOLol HCL [Inderal LA -] 120 mg PO BID capsule.er 12/20/18 Amino Acids/Protein Hydrolys [Prosource No Carb Liquid Pkt] 30 ml PO BID@0800, 1730 packet 01/21/19 Apixaban [Eliquis -] 2.5 mg PO BID tablet 01/21/19 Cyanocobalamin [Vitamin B12 -] 100 mcg PO DAILY tablet 01/21/19 Digoxin [Lanoxin -] 0.125 mg PO DAILY tablet 01/21/19 Diltiazem Cd [Cardizem Cd -] 240 mg PO DAILY cap.cd.24h 01/21/19 Furosemide [Lasix -] 40 mg PO BID@0600,1400 tablet 01/21/19 Magnesium Oxide [Mag-Ox -] 400 mg PO BID tablet 01/21/19 Mirtazapine [Remeron -] 7.5 mg PO HS tablet 01/21/19 Multivitamins [Multivit ([facility] Formulary)] 1 tab PO DAILY tab 01/21/19 Naph,Mb-Db/K pH,Mbdb [PHOS-NaK PACKET -] 1 packet PO TID pow 01/21/19 Nystatin Cream [Mycostatin Cream -] 1 applic TP BID applic 01/21/19 Potassium Chloride [K-Dur -] 40 meq PO DAILY tablet.er 01/21/19 This patient is new to me today: No Emergency Visit: Yes ED Registration Date: 12/22/18 Care time: The patient presented to the Emergency Department on the above date and was hospitalized for further evaluation of their emergent condition. Critical Care patient: No - Discharge Referral Referred to [facility] Med P.C.: No
--- NOTE | 2019-01-21 13:44 | PN ---
Progress Note, Physician History of Present Illness: stable no new issues - Current Medication List Current Medications: Active Medications Acetaminophen (Tylenol -) 650 mg PO Q6H PRN PRN Reason: PAIN LEVEL 1-5 Last Admin: 01/21/19 09:40 Dose: 650 mg Amino Acids (Prosource No Carb Liquid Pkt) 30 ml PO BID@0800,1730 [facility] Last Admin: 01/21/19 09:38 Dose: 30 ml Apixaban (Eliquis -) 2.5 mg PO BID [facility] Last Admin: 01/21/19 09:38 Dose: 2.5 mg Cyanocobalamin (Vitamin B12 -) 100 mcg PO DAILY [facility] Last Admin: 01/21/19 09:40 Dose: 100 mcg Digoxin (Lanoxin -) 0.125 mg PO DAILY [facility] Last Admin: 01/21/19 09:39 Dose: 0.125 mg Diltiazem HCl (Cardizem Injection -) 10 mg IVPUSH Q4H PRN PRN Reason: TACHYCARDIA Diltiazem HCl (Cardizem Cd -) 240 mg PO DAILY [facility] Last Admin: 01/21/19 09:38 Dose: 240 mg Fluticasone Propionate (Flonase -) 2 spray NS DAILY [facility] Last Admin: 01/21/19 09:38 Dose: 2 spray Furosemide (Lasix -) 40 mg PO BID@0600,1400 [facility] Last Admin: 01/21/19 13:21 Dose: 40 mg Magnesium Oxide (Mag-Ox -) 400 mg PO BID [facility] Last Admin: 01/21/19 09:39 Dose: 400 mg Mirtazapine (Remeron -) 7.5 mg PO HS [facility] Last Admin: 01/20/19 23:43 Dose: 7.5 mg Multivitamins/Minerals/Vitamin C (Tab-A-Vit -) 1 tab PO DAILY [facility] Last Admin: 01/21/19 09:40 Dose: 1 tab Nystatin (Mycostatin Cream -) 1 applic TP BID [facility] Last Admin: 01/21/19 09:39 Dose: 1 applic Ondansetron HCl (Zofran Injection) 4 mg IVPUSH Q6H PRN PRN Reason: NAUSEA Pantoprazole Sodium (Protonix Iv) 40 mg IVPUSH DAILY [facility] Last Admin: 01/21/19 09:39 Dose: 40 mg Potassium Chloride (K-Dur -) 40 meq PO DAILY [facility] Last Admin: 01/21/19 09:39 Dose: 40 meq Potassium Phos/Sodium Phos (Phos-Nak Packet -) 1 packet PO TID [facility] Last Admin: 01/21/19 13:21 Dose: 1 packet Propranolol HCl (Inderal Injection -) 1 mg IVPUSH Q1H PRN PRN Reason: TACHYCARDIA Propranolol HCl (Inderal La -) 120 mg PO BID [facility] Last Admin: 01/21/19 11:25 Dose: 120 mg - Objective Vital Signs: Vital Signs Temperature 97.6 F 01/21/19 12:42 Pulse Rate 78 01/21/19 13:23 Respiratory Rate 22 H 01/21/19 13:23 Blood Pressure 112/56 L 01/21/19 13:23 O2 Sat by Pulse Oximetry (%) 100 01/21/19 10:00 Constitutional: Yes: No Distress Cardiovascular: Yes: S1, S2 Respiratory: Yes: Regular, Poor Air Entry (rt side) Gastrointestinal: Yes: Normal Bowel Sounds, Soft Musculoskeletal: Yes: WNL Extremities: Yes: WNL Neurological: Yes: Alert, Other Psychiatric: Yes: Other Labs: CBC, BMP 01/21/19 05:30 01/21/19 05:30 INR, PTT INR 1.08 (0.83-1.09) 01/18/19 09:18 Assessment/Plan - Problems (1) Colon obstruction Code(s): K56.609 - UNSP INTESTNL OBST, UNSP TO PARTIAL VERSUS COMPLETE OBST (2) Atrial fibrillation with RVR Code(s): I48.91 - UNSPECIFIED ATRIAL FIBRILLATION (3) Dementia Code(s): F03.90 - UNSPECIFIED DEMENTIA WITHOUT BEHAVIORAL DISTURBANCE (4) Esophagitis Code(s): K20.9 - ESOPHAGITIS, UNSPECIFIED (5) GERD (gastroesophageal reflux disease) Code(s): K21.9 - GASTRO-ESOPHAGEAL REFLUX DISEASE WITHOUT ESOPHAGITIS (6) Hypertension Code(s): I10 - ESSENTIAL (PRIMARY) HYPERTENSION Qualifiers: Hypertension type: essential hypertension Qualified Code(s): I10 - Essential (primary) hypertension leukocytosis pleural effusion pe pleural effusion has increased plan continue current mgmt as per the team no intervention being done continue to monitor final plan awaited
== END 2019-01-21 15:33 | DRG 329 ==
LOC: JER 08:34 → JERBED 13:58 → J4W 19:38 → OBSVTOIN 12-22 15:24 → JICU 12-22 22:50 → J2W 12-28 19:14
PROVIDERS: ADMIT Internal Medicine; ATTEND Nurse Practitioner Family
PROC: 0WJP0ZZ Inspection of Gastrointestinal Tract, Open Approach (ICD-10-PCS; 2018-12-22)
PROC: 0D9670Z Drainage of Stomach with Drainage Device, Via Natural or Artificial Opening (ICD-10-PCS; 2018-12-22)
PROC: 0DTF0ZZ Resection of Right Large Intestine, Open Approach (ICD-10-PCS; principal; 2018-12-22 16:00)
PROC: 0W9930Z Drainage of Right Pleural Cavity with Drainage Device, Percutaneous Approach (ICD-10-PCS; 2019-01-08)
PROC: 0WP9X0Z Removal of Drainage Device from Right Pleural Cavity, External Approach (ICD-10-PCS; 2019-01-18)
DX: C18.9 Malignant neoplasm of colon, unspecified (principal); T81.12XA Postprocedural septic shock, initial encounter; A41.9 Sepsis, unspecified organism; I26.99 Other pulmonary embolism without acute cor pulmonale; I50.33 Acute on chronic diastolic (congestive) heart failure; K56.699 Other intestinal obstruction unspecified as to partial versus complete obstruction; T81.40XA Infection following a procedure, unspecified, initial encounter; T81.44XA Sepsis following a procedure, initial encounter; I48.92 Unspecified atrial flutter; F05 Delirium due to known physiological condition; J90 Pleural effusion, not elsewhere classified; J95.811 Postprocedural pneumothorax; N39.0 Urinary tract infection, site not specified; I48.91 Unspecified atrial fibrillation; Z79.01 Long term (current) use of anticoagulants; K21.9 Gastro-esophageal reflux disease without esophagitis; F03.90 Unspecified dementia, unspecified severity, without behavioral disturbance, psychotic disturbance, mood disturbance, and anxiety; K20.9 Esophagitis, unspecified; Y83.8 Other surgical procedures as the cause of abnormal reaction of the patient, or of later complication, without mention of misadventure at the time of the procedure; D72.829 Elevated white blood cell count, unspecified; Z66 Do not resuscitate; E83.42 Hypomagnesemia; E83.39 Other disorders of phosphorus metabolism; E83.51 Hypocalcemia; E87.6 Hypokalemia; I95.81 Postprocedural hypotension; I11.0 Hypertensive heart disease with heart failure; D50.0 Iron deficiency anemia secondary to blood loss (chronic); E88.09 Other disorders of plasma-protein metabolism, not elsewhere classified; B96.1 Klebsiella pneumoniae [K. pneumoniae] as the cause of diseases classified elsewhere
CPT/HCPCS: 32557; 36415; 36600; 71045-TC-FY; 71250-TC; 71275-TC; 74018-TC-FY; 74176-TC; 80048; 80053; 80162; 81003; 81015; 82040; 82042; 82150; 82272; 82378; 82550; 82570; 82728; 82803; 82945; 83036; 83540; 83550; 83605; 83615; 83690; 83735; 83880; 83986; 84100; 84132; 84156; 84157; 84300; 84443; 84466; 84478; 84484; 85025; 85027; 85610; 85730; 86304; 86850; 86900; 86901; 87040; 87070; 87075; 87086; 87102; 87116; 87186; 87205; 87206; 87210; 87324; 87449; 87899; 88108; 88305-TC; 88309-TC; 93005; 93010; 93306-TC; 93970-TC; 94010; 94760; 97116-GP; 97161-GP; 99282-25; C1729; C1769; G0378; J0131; J0282; J1644; J1756; J7030; Q9967